=== PATIENT | male | born 1960 | race Caucasian/White ===

== ENCOUNTER 2016-02-22 15:03 | Inpatient (IN) | payer MEDICARE, OTHER ==
[~2016-02-22] VITALS: Ht 190.5 cm; Wt 98.1 kg
[2016-02-22] VITALS (11 sets, daily range): BP systolic 94–141; BP diastolic 55–68; PULSE 90–103; RESP 16–24; TEMP 98–98.4; O2SAT 95–98
[~2016-02-22 15:03] MED LIST: ACET325 PO; ASPI81TA82 PO; BUSP10 PO; DEPA500T3 PO; GEMF600 PO; GENT0.1C TOP; GEOD80CA PO; HYDRO50 PO; MAGN30S PO; NEXI40CA PO; NOVOLOGP2 SQ; RENATAB5 PO; SENS90TA PO; SILV1CRE59 TOP; TUMS500C PO
--- NOTE | 2016-02-22 15:20 | PD ---
HPI Chief Complaint: chest pain Time Seen by Provider: 15:20 Travel History International Travel<30 days: No Contact w/Intl Traveler<30days: No Traveled to known affect area: No History of Present Illness HPI 55-year-old male who is end-stage renal disease hemodialysis dependent was getting his dialysis done went worse ENT developed chest pain. Patient says that he gets 4 hours of dialysis usually and just half an hour prior to the completion he started developing chest pain. He pointed to the left side of his chest where he was getting sharp pain. He was given 2 sublingual nitroglycerin and 2 baby aspirin's. Upon arrival his pain was at 6 out of 10. No history of shortness of breath or syncopal episode. [facility] Past Medical History Narrative Medical List of his past medical history as reviewed from the nursing note. Anemia: Yes Arthritis: No Asthma: No Autoimmune Disease: No Blood Disorders: No Anxiety: Yes Depression: Yes Heart Rhythm Problems: No Cancer: Yes (skin cancer squamous facial) Cardiovascular Problems: Yes High Cholesterol: Yes Chemotherapy: No Chest Pain: Yes Congestive Heart Failure: No COPD: No Cerebrovascular Accident: No Diabetes: Yes (INSULIN DEPENDENT) Dialysis: Yes (TUES/TH/SAT) Diminished Hearing: Yes (DIMINISHED IN R EYE) Endocrine: Yes GERD: No Glaucoma: No Genitourinary: Yes (RENAL FAILURE. DIALYSIS 3X'S WEEKLY) Headaches: No Hepatitis: Yes (TYPE C) Hiatal Hernia: No Hypertension: Yes Immune Disorder: No Implanted Vascular Access Dvce: Yes Kidney Stones: No Musculoskeletal: No Neurologic: No Psychiatric: Yes (SCHIZOPHRENIA) Reproductive: No Respiratory: No Immunizations Current: Yes Migraines: No Myocardial Infarction: No Radiation Therapy: No Renal Failure: Yes (ON HEMODIALYSIS) Schizophrenia: Yes Seizures: No Sickle Cell Disease: No Sleep Apnea: No Thyroid Disease: Yes (HYPER PARATHYROIDISM) Ulcer: No Past Surgical History Abdominal Surgery: No AICD: No Appendectomy: No Arteriovenous Shunt: Yes (left upper arm) Cardiac Surgery: No Cholecystectomy: No Ear Surgery: No Endocrine Surgery: No Eye Surgery: No Genitourinary Surgery: No Gynecologic Surgery: No Insulin Pump: No Joint Replacement: No Oral Surgery: Yes (T & A) Pacemaker: No Thoracic Surgery: No Tonsillectomy: Yes Other Surgery: Yes (AV GRAFT) Social History Alcohol Use: No Tobacco Use: No Substance Use: No Allergies-Medications (Allergen,Severity, Reaction): Coded Allergies: Vee (Verified Adverse Reaction, Unknown, PT DENIES ALLERGY, 02/22/16) Pt denies allergy Comments List of his allergies reviewed from the nursing note. Reported Meds & Prescriptions Reported Meds & Active Scripts Active Reported Tums (Calcium Carbonate) 500 Mg Chew 500 Mg PO TIDPC Nexium (Esomeprazole Magnesium) Esomeprazole Magnesium 40 mg Cap 40 Mg PO DAILY Sensipar 90 mg (Cinacalcet Hcl 90 mg) 90 Mg Tab 180 Mg PO HS Silvadene (Silver Sulfadiazine) 50 Gm Cr 1 Applic TOP DIRECTED Novolog (Insulin Aspart) 100 Units/ML Inj 0 SQ DIRECTED PRN Gentamicin Sulfate (Gentamicin Sulfate (Topical)) 0.1 % Cre 1 Applic TOP TUTHSA APPLY TO LEFT UPPER ARM ON DIALYSIS DAYS Depakote ER 500 mg (Divalproex Sodium) 500 Mg Tab 1,500 Mg PO DAILY Buspar 10 mg Tab (Buspirone HCl) 10 Mg Tab 10 Mg PO BID Aspir-81 (Aspirin) 81 Mg Tab 81 Mg PO DAILY Tylenol (Acetaminophen) 325 Mg Tab 650 Mg PO Q6H PRN Aracely-Annelise (B-Complex W/ C & Folic Acid) Tab 1 Tab PO DAILY Milk Of Magnesia (Magnesium Hydroxide) 30 Ml Susp 30 Ml PO DAILY PRN Atarax 50 Mg Tab (Hydroxyzine HCl) 50 Mg Tab 50 Mg PO TID Lopid (Gemfibrozil) 600 Mg Tab 600 Mg PO BID Geodon (Ziprasidone) 80 Mg Cap 100 Mg PO BID TAKE WITH FOOD Narrative Medication List of his home medications reviewed from the nursing note. Review of Systems Except as stated in HPI: all other systems reviewed are Neg Physical Exam Narrative GENERAL: Awake, alert, morbidly obese, moderate distress SKIN: Warm and dry. HEAD: Atraumatic. Normocephalic. EYES: Pupils equal and round. No scleral icterus. No injection or drainage. ENT: No nasal bleeding or discharge. Mucous membranes pink and moist. NECK: Trachea midline. No JVD. CARDIOVASCULAR: Regular rate and rhythm. No murmur appreciated. RESPIRATORY: No accessory muscle use. Clear to auscultation. Breath sounds equal bilaterally. GASTROINTESTINAL: Abdomen soft, non-tender, nondistended. Hepatic and splenic margins not palpable. MUSCULOSKELETAL: No obvious deformities. No clubbing. No cyanosis. No edema. NEUROLOGICAL: Awake and alert. No obvious cranial nerve deficits. Motor grossly within normal limits. Normal speech. PSYCHIATRIC: Appropriate mood and affect; insight and judgment normal. Data Data Last Documented VS Vital Signs Date Time Temp Pulse Resp B/P Pulse Ox O2 Delivery O2 Flow Rate FiO2 02/22/16 15:28 98 Nasal Cannula 2 02/22/16 15:22 99 24 118/65 02/22/16 15:19 98.4 Orders Electrocardiogram (02/22/16 15:25) Basic Metabolic Panel (Bmp) (02/22/16 15:25) Ckmb (Isoenzyme) Profile (02/22/16 15:25) Complete Blood Count With Diff (02/22/16 15:25) Magnesium (Mg) (02/22/16 15:25) Prothrombin Time / Inr (Pt) (02/22/16 15:25) Act Partial Throm Time (Ptt) (02/22/16 15:25) Troponin I (02/22/16 15:25) Chest, Single Ap (02/22/16 15:25) Ecg Monitoring (02/22/16 15:25) Bilateral Bp Monitoring (02/22/16 15:25) Iv Access Insert/Monitor (02/22/16 15:25) Oximetry (02/22/16 15:25) Oxygen Administration (02/22/16 15:25) Sodium Chloride 0.9% Flush (Ns Flush) (02/22/16 15:30) Ed Poc Ultrasound (02/22/16 ) Diet Heart Healthy (02/22/16 Dinner) Heparin Infusion GABRIELA.Q1H (02/22/16 16:39) Heparin Inj (Heparin Inj) (02/22/16 16:45) Heparin-D5w Inj (Heparin-D5w Inj) (02/22/16 16:45) Act Partial Throm Time (Ptt) (02/22/16 16:39) Cbc No Diff, Includes Plts (02/22/16 16:39) Cbc No Diff, Includes Plts (02/25/16 06:00) Act Partial Throm Time (Ptt) (02/22/16 23:39) Occult Blood (Hemoccult) Stool (02/22/16 16:39) Labs Laboratory Tests Test 02/22/16 15:40 White Blood Count 6.2 TH/MM3 Red Blood Count 3.38 MIL/MM3 Hemoglobin 10.3 GM/DL Hematocrit 31.2 % Mean Corpuscular Volume 92.6 FL Mean Corpuscular Hemoglobin 30.4 PG Mean Corpuscular Hemoglobin 32.9 % Concent Red Cell Distribution Width 15.5 % Platelet Count 278 TH/MM3 Mean Platelet Volume 9.1 FL Neutrophils (%) (Auto) 60.6 % Lymphocytes (%) (Auto) 25.3 % Monocytes (%) (Auto) 10.3 % Eosinophils (%) (Auto) 2.7 % Basophils (%) (Auto) 1.1 % Neutrophils # (Auto) 3.7 TH/MM3 Lymphocytes # (Auto) 1.6 TH/MM3 Monocytes # (Auto) 0.6 TH/MM3 Eosinophils # (Auto) 0.2 TH/MM3 Basophils # (Auto) 0.1 TH/MM3 CBC Comment DIFF FINAL Differential Comment Prothrombin Time 13.4 SEC Prothromb Time International 1.2 RATIO Ratio Activated Partial 29.2 SEC Thromboplast Time Sodium Level 142 MEQ/L Potassium Level 3.5 MEQ/L Chloride Level 101 MEQ/L Carbon Dioxide Level 28.5 MEQ/L Anion Gap 13 MEQ/L Blood Urea Nitrogen 20 MG/DL Creatinine 5.02 MG/DL Estimat Glomerular Filtration 12 ML/MIN Rate Random Glucose 132 MG/DL Calcium Level 8.7 MG/DL Magnesium Level 2.1 MG/DL Total Creatine Kinase 43 U/L Troponin I 0.08 NG/ML MDM Medical Decision Making Medical Screen Exam Complete: Yes Emergency Medical Condition: Yes Medical Record Reviewed: Yes Interpretation(s) Twelve-lead EKG was reviewed by me. Atrial fibrillation, right bundle branch block, PVCs, left axis deviation. Heart rate of 98 bpm. Differential Diagnosis ACS, non-STEMI, nonspecific chest pain Narrative Course 4:32 PM awaiting for the troponin result,. Rest of the blood test results are within normal limit. Patient does have elevated troponin as expected. Awaiting for the chest x-ray to be done and resulted. 4:42 PM troponin is mildly elevated. Upon trending the troponin in the past this has been the highest. Awaiting for the hospitalist to call back for admission. I've ordered heparin bolus and drip. Procedures EKG Prior to Arrival: Yes Diagnosis Primary Impression: Non-STEMI (non-ST elevated myocardial infarction) Additional Impressions: End stage renal disease Dependent on hemodialysis Admitting Information Admitting Physician Requests: Admit Sulema Clarke MD Feb 22, 2016 15:20
[2016-02-22] MEDS ORDERED: SODIUM CHLORIDE 0.9% FLUSH 5 ML FLUSH IVF PRN (15:30)
[2016-02-22 16:05] LABS: APTT (PATIENT) 29.2 SEC (24.3-30.1); INTERNATIONAL NORMALIZED RATIO 1.2 RATIO; PROTHROMBIN TIME - PATIENT 13.4 SEC (9.8-11.6)
[2016-02-22 16:10] LABS: AUTOMATED NEUTROPHIL # 3.7 TH/MM3 (1.8-7.7); BASOPHIL # 0.1 TH/MM3 (0-0.2); BASOPHIL % 1.1 % (0.0-2.0); EOSINOPHIL # 0.2 TH/MM3 (0-0.4); EOSINOPHIL % 2.7 % (0.0-4.0); HEMATOCRIT 31.2 % (39.0-51.0); HEMO FLAGS DIFF FINAL; LYMPH % 25.3 % (9.0-44.0); LYMPHOCYTE # 1.6 TH/MM3 (1.0-4.8); MEAN CELL VOLUME 92.6 FL (80.0-100.0); MEAN CORPUSCULAR HEMOGLOBIN 30.4 PG (27.0-34.0); MEAN CORPUSCULAR HGB CONC 32.9 % (32.0-36.0); MONO % 10.3 % (0.0-8.0); NEUT % 60.6 % (16.0-70.0); PLATELET COUNT 278 TH/MM3 (150-450); RED BLOOD COUNT 3.38 MIL/MM3 (4.50-5.90); RED CELL DISTRIBUTION WIDTH 15.5 % (11.6-17.2); WHITE BLOOD COUNT 6.2 TH/MM3 (4.0-11.0)
[2016-02-22 16:19] LABS: BICARBONATE 28.5 MEQ/L (21.0-32.0); MAGNESIUM 2.1 MG/DL (1.5-2.5); POTASSIUM 3.5 MEQ/L (3.5-5.1)
[2016-02-22] MEDS ORDERED: HEPARIN SODIUM - IV 10,000 UNITS/10 ML VIAL IV ONE (16:45)
[2016-02-22] MEDS ORDERED: SILV1CRE20 TOPICAL (17:03)
[2016-02-22] MEDS ORDERED: DEPA500T3 PO (17:03)
[2016-02-22] MEDS ORDERED: ZIPR20 PO (17:03)
[2016-02-22] MEDS ORDERED: NOVOLOGP2 SQ (17:03)
[2016-02-22] MEDS ORDERED: TYLE325T PO (17:03)
[2016-02-22] MEDS ORDERED: RENATAB5 PO (17:03)
[2016-02-22] MEDS ORDERED: GEOD80CA PO (17:03)
[2016-02-22] MEDS ORDERED: TUMS500C PO (17:03)
[2016-02-22] MEDS ORDERED: ASPI1TAB69 PO (17:03)
[2016-02-22] MEDS: HEPARIN-D5W INJ 250 ML IV SCH (17:13)
[2016-02-22] MEDS ORDERED: PROCHLORPERAZINE 25 MG SUPP PR PRN (17:15)
[2016-02-22] MEDS ORDERED: ONDANSETRON HCL 4 MG/2 ML VIAL IVP PRN (17:15)
[2016-02-22] MEDS ORDERED: SODIUM CHLORIDE 0.9% FLUSH 5 ML FLUSH FLUSH PRN (17:15)
[2016-02-22] MEDS ORDERED: MAGNESIUM HYDROXIDE SUSP 30 ML CUP PO PRN (17:15)
[2016-02-22] MEDS ORDERED: SENNOSIDES 8.6 MG TAB PO PRN (17:15)
[2016-02-22] MEDS ORDERED: BISACODYL 10 MG SUPP PR PRN (17:15)
[2016-02-22] MEDS ORDERED: TEMAZEPAM 15 MG CAP PO PRN (17:15)
[2016-02-22] MEDS ORDERED: MORPHINE SULFATE 4 MG/ML INJ IV PUSH PRN (17:15)
--- NOTE | 2016-02-22 17:20 | RADRPT ---
EXAM DATE/TIME: 02/22/2016 15:27 [place] COMPARISON: CHEST SINGLE AP, January 07, 2014, 5:50. INDICATIONS : Chest pain, short of breath MEDICAL HISTORY : Renal failure, chronic. SURGICAL HISTORY : None. ENCOUNTER: Initial ACUITY: 1 day PAIN SCORE: 7/10 LOCATION: Bilateral chest FINDINGS: Portable upright AP view of the chest demonstrates cardiac silhouette size at the upper limits for no rmal. Examination is degraded by motion artifact. No definite effusion, consolidation, or pneumothora x is appreciated. Bones and soft tissues demonstrate no acute finding. CONCLUSION: Motion degraded examination without a definite abnormality given the technique. Cardiac silhouette si ze remains at the upper limits for normal. Gil Meade MD on February 22, 2016 at 17:18 Board Certified Radiologist. This report was verified electronically.
[2016-02-22] MEDS ORDERED: GLUCAGON 1 MG/ML VIAL OTHER PRN (18:00)
[2016-02-22] MEDS ORDERED: DEXTROSE 50% IN WATER 50 ML VIAL(D50) IV PUSH PRN (18:00)
[2016-02-22] MEDS ORDERED: CALCIUM CARBONATE 500 MG CHEWABLE TAB PO PRN (18:00)
[2016-02-22] MEDS ORDERED: ACETAMINOPHEN 325 MG TAB PO PRN (18:00)
--- NOTE | 2016-02-22 18:00 | HHI.HP ---
[facility] Primary Care Physician Felix Antony MD Admission Diagnosis chest pain, non-STEMI, ESRD, HD dependent Diagnoses: Chief Complaint: Chest pain Travel History International Travel<30 Days: No Contact w/Intl Traveler <30 Da: No Traveled to Known Affected Are: No History of Present Illness 55-year-old male with a past medical history of ESRD, seizure disorder, DM, Reza's esophagus, schizophrenia who presented to the ED from dialysis with chest pain. The patient states that during dialysis today he began having cramping epigastric pain which radiated into his chest. He describes the chest pain as sharp like a knife. He denies any radiation of the chest pain. He states the pain was relieved with nitroglycerin. Upon further questioning, he does state that the epigastric/mid chest pain is similar to when he had an EGD done and was diagnosed with Reza's esophagus. He denies any diaphoresis, nausea, vomiting. Does have a chronic dry cough. He denies any fevers or chills. He does have chronic loose stools, multiple episodes per day. He denies any recent antibiotic use. He does still make some urine. His acid changer is Dr. Antony. He denies any prior cardiac history. Review of Systems Other 10 point review of systems performed and was negative except as stated in the history of present illness Past Family Social History Past Medical History ESRD on HD Seizure disorder Reza's esophagus Diabetes mellitus Schizophrenia Past Surgical History Left upper extremity AV graft EGD Skin cancer removal from the forehead Reported Medications Geodon (Ziprasidone) 20 Mg Cap 100 Mg PO BID Take 1 capsule (20mg) with 80mg capsule for a total dose of 100mg Geodon (Ziprasidone) 80 Mg Cap 100 Mg PO BID Take 1 capsule (80mg) with 20mg capsule for a total dose of 100mg Silvadene Topical (Silver Sulfadiazine) 1 % Cream 1 Applic TOPICAL DIRECTED Aracely-Annelise (B-Complex W/ C & Folic Acid) 1 Tab 1 Tab PO DAILY Depakote ER (Divalproex Sodium) 500 Mg Prema 1,500 Mg PO DAILY Novolog Inj (Insulin Aspart) 1,000 Unit/10 Ml Vial 0 SQ DIRECTED Sliding Scale as directed. Tums (Calcium Carbonate (Antacid)) 500 Mg Chew 500 Mg PO TIDPC PRN Aspirin 81 Mg Tabdr 81 Mg PO DAILY Tylenol (Acetaminophen) 325 Mg Tab 650 Mg PO Q6H PRN Patient also reports she is taking Januvia Allergies: Coded Allergies: Vee (Verified Adverse Reaction, Unknown, PT DENIES ALLERGY, 02/22/16) Pt denies allergy Active Ordered Medications Current Medications Medications (Trade) Dose Ordered Sig/Diane Route Start Time Stop Time Status Last Admin (Heparin-D5W Inj) 250 ml @ 0 mls/hr TITRATE IV 02/22/16 16:45 02/22/16 17:13 (Nitroglycerin 2% Oint) 1 inch Q8HR TOPICAL 02/22/16 17:15 (Morphine Inj) 2 mg Q4HR PRN IV PUSH 02/22/16 17:15 (NS Flush) 2 ml UNSCH PRN FLUSH 02/22/16 17:15 (NS Flush) 2 ml BID FLUSH 02/22/16 21:00 (Zofran Inj) 4 mg Q6H PRN IVP 02/22/16 17:15 (Compazine Supp) 25 mg Q12H PRN [place] 02/22/16 17:15 (Dulcolax Supp) 10 mg DAILY PRN [place] 02/22/16 17:15 (Milk Of Magnesia Liq) 30 ml Q12H PRN PO 02/22/16 17:15 (Senokot) 17.2 mg Q12H PRN PO 02/22/16 17:15 (Restoril) 15 mg HS PRN PO 02/22/16 17:15 (Lopressor) 12.5 mg Q12HR PO 02/22/16 21:00 (Pepcid) 20 mg BID PO 02/22/16 21:00 UNV (Tylenol) 650 mg Q6H PRN PO 02/22/16 18:00 UNV (Ecotrin Ec) 81 mg DAILY PO 02/23/16 09:00 UNV (Tums Chew) 500 mg TIDPC PRN PO 02/22/16 18:00 UNV (Depakote Er) 1,500 mg DAILY PO 02/23/16 09:00 UNV (Silvadene 1% Cream (50 Gm)) 1 applic DAILY TOPICAL 02/23/16 09:00 UNV (Geodon) 100 mg BID PO 02/22/16 21:00 UNV Non-Formulary Medication 1 tab DAILY PO 02/23/16 09:00 UNV Family History Mother had breast cancer Denies any family history of heart disease Social History SNF resident Denies any tobacco use, but does state he has secondhand smoke exposure because he sits on the smokers porch at his facility Denies any alcohol or drug use Physical Exam Vital Signs Vital Signs Date Time Temp Pulse Resp B/P Pulse Ox O2 Delivery O2 Flow Rate FiO2 02/22/16 17:06 97 16 111/64 97 Room Air 02/22/16 15:28 98 Nasal Cannula 2 02/22/16 15:22 99 24 118/65 95 Room Air 02/22/16 15:19 98.4 99 24 118/65 95 Physical Exam GENERAL: Well-developed well-nourished. In no acute distress. SKIN: Warm and dry. LUE AVF. HEENT: Normocephalic. Pupils equal and round. Mucous membranes pink and moist. CARDIOVASCULAR: Regular rate and rhythm. No murmur appreciated. RESPIRATORY: No accessory muscle use. Clear to auscultation. Breath sounds equal bilaterally. GASTROINTESTINAL: Abdomen soft, non-tender, nondistended. Bowel sounds x4. MUSCULOSKELETAL: No obvious deformities. No clubbing or cyanosis. No edema. NEUROLOGICAL: Awake and alert. No focal neurological deficits. Moves upper and lower extremities spontaneously. Normal speech. PSYCHIATRIC: Appropriate mood and affect; insight and judgment normal. Laboratory Laboratory Tests Test 02/22/16 15:40 White Blood Count 6.2 Red Blood Count 3.38 Hemoglobin 10.3 Hematocrit 31.2 Mean Corpuscular Volume 92.6 Mean Corpuscular Hemoglobin 30.4 Mean Corpuscular Hemoglobin 32.9 Concent Red Cell Distribution Width 15.5 Platelet Count 278 Mean Platelet Volume 9.1 Neutrophils (%) (Auto) 60.6 Lymphocytes (%) (Auto) 25.3 Monocytes (%) (Auto) 10.3 Eosinophils (%) (Auto) 2.7 Basophils (%) (Auto) 1.1 Neutrophils # (Auto) 3.7 Lymphocytes # (Auto) 1.6 Monocytes # (Auto) 0.6 Eosinophils # (Auto) 0.2 Basophils # (Auto) 0.1 CBC Comment DIFF FINAL Differential Comment Prothrombin Time 13.4 Prothromb Time International 1.2 Ratio Activated Partial 29.2 Thromboplast Time Sodium Level 142 Potassium Level 3.5 Chloride Level 101 Carbon Dioxide Level 28.5 Anion Gap 13 Blood Urea Nitrogen 20 Creatinine 5.02 Estimat Glomerular Filtration 12 Rate Random Glucose 132 Calcium Level 8.7 Magnesium Level 2.1 Total Creatine Kinase 43 Troponin I 0.08 Result Diagram: 02/22/16 1540 02/22/16 1540 Imaging Last Impressions Chest X-Ray 02/22/16 1525 Signed Impressions: Service Date/Time: January 15:27 - CONCLUSION: Motion degraded examination without a definite abnormality given the technique. Cardiac silhouette size remains at the upper limits for normal. Gil Meade MD Assessment and Plan Problem List: (1) Chest pain ICD Code: R07.9 Status: Acute (2) Schizophrenia ICD Code: F20.9 Status: Chronic (3) DM (diabetes mellitus) ICD Code: E11.9 Status: Chronic (4) End stage renal failure on dialysis ICD Code: N18.6 Status: Chronic (5) Non-STEMI (non-ST elevated myocardial infarction) ICD Code: I21.4 Status: Acute Assessment and Plan 55-year-old male with a past medical history of ESRD, seizure disorder, DM, Reza's esophagus, schizophrenia who presented to the ED from dialysis with chest pain Chest pain/NSTEMI: Chest pain sounds atypical. However initial troponin 0.08 which can be related to ESRD, but was previously 0.02 on 01/13/14 and the patient was on HD at that time as well. EKG reviewed, RBBB, nonspecific ST/T- wave changes, no significant change from previous and 2014. Trend troponins. Started on heparin GTT in the ED. Consult cardiology. Start metoprolol and Nitropaste as BP allows. Continue aspirin. ESRD on HD: Dialyzes TTS. Consult patient's acid changer. GERD/Reza's esophagus: Chronic, but could be exacerbating chest pain as above. Continue Tums as needed. Start famotidine with renal impairment. Loose stools: Chronic, however will rule out C. difficile. Diabetes mellitus: Coverage with SSI with [employer]. Chronic medical conditions include schizophrenia and seizure disorder: Continue home Depakote and Geodon. DVT prophylaxis: On heparin drip. PT eval Written by Dwight Hairston, acting as scribe for Dr. Correia on 02/22/16 at 17:59. The documentation accurately reflects the work performed [id number] by me Dr. Correia on 02/22/16 at 17:59. Discussed Condition With Patient, nurse, ED physician Problem Qualifiers (1) Chest pain: Qualified Code: R07.9 - Chest pain, unspecified type (2) Schizophrenia: Qualified Code: F20.9 - Schizophrenia, unspecified type Dwight Hairston Feb 22, 2016 18:00 Lizet Correia MD Feb 22, 2016 19:29
[2016-02-22] MEDS: NITROGLYCERIN 2% OINT 1 GM PACKET TOPICAL SCH (18:02)
[2016-02-22] MEDS: INSULIN ASPART SUPPLEMENTAL SCALE SQ SCH (21:00)
[2016-02-22] MEDS ORDERED: ZIPRASIDONE HCL 20 MG CAP PO SCH (21:00)
[2016-02-22] MEDS: FAMOTIDINE 20 MG TAB PO SCH (21:40)
[2016-02-22] MEDS: ZIPRASIDONE HCL 60 MG CAP PO SCH (21:41)
[2016-02-22] MEDS: ZIPRASIDONE HCL 40 MG CAP PO SCH (21:41)
[2016-02-22 23:16] LABS: APTT (PATIENT) 30.3 SEC (24.3-30.1)
[2016-02-23] VITALS (9 sets, daily range): BP systolic 101–163; BP diastolic 56–103; PULSE 74–94; RESP 16–20; TEMP 97.4–98.6; O2SAT 93–99
[2016-02-23] MEDS: METOPROLOL TARTRATE 25 MG TAB PO SCH ×3 (00:57→21:41)
[2016-02-23] MEDS: NITROGLYCERIN 2% OINT 1 GM PACKET TOPICAL SCH ×4 (00:57→21:41)
[2016-02-23] MEDS: SODIUM CHLORIDE 0.9% FLUSH 5 ML FLUSH FLUSH SCH ×3 (00:57→21:42)
[2016-02-23 04:35] LABS: AUTOMATED NEUTROPHIL # 3.4 TH/MM3 (1.8-7.7); BASOPHIL % 0.5 % (0.0-2.0); EOSINOPHIL # 0.3 TH/MM3 (0-0.4); EOSINOPHIL % 3.9 % (0.0-4.0); HEMATOCRIT 29.6 % (39.0-51.0); HEMO FLAGS DIFF FINAL; LYMPH % 29.4 % (9.0-44.0); LYMPHOCYTE # 1.9 TH/MM3 (1.0-4.8); MEAN CELL VOLUME 92.2 FL (80.0-100.0); MEAN CORPUSCULAR HEMOGLOBIN 30.5 PG (27.0-34.0); MEAN CORPUSCULAR HGB CONC 33.1 % (32.0-36.0); MONO % 14.2 % (0.0-8.0); PLATELET COUNT 259 TH/MM3 (150-450); RED BLOOD COUNT 3.21 MIL/MM3 (4.50-5.90); RED CELL DISTRIBUTION WIDTH 15.4 % (11.6-17.2); WHITE BLOOD COUNT 6.6 TH/MM3 (4.0-11.0)
[2016-02-23 05:00] LABS: BICARBONATE 25.2 MEQ/L (21.0-32.0); POTASSIUM 3.7 MEQ/L (3.5-5.1)
[2016-02-23] MEDS: INSULIN ASPART SUPPLEMENTAL SCALE SQ SCH ×4 (05:56→20:17)
[2016-02-23] MEDS ORDERED: NON-FORMULARY DRUG (B-Complex W/ C & Folic Acid (Rena-Vite) 1 TAB) PO SCH (09:00)
[2016-02-23] MEDS: ATORVASTATIN 10 MG TAB PO SCH (09:00)
[2016-02-23] MEDS ORDERED: SILVER SULFADIAZINE 1% CR 50 GM JAR TOPICAL SCH (09:00)
--- NOTE | 2016-02-23 09:01 | MB ---
cc: FRANKLIN SALAS MD DATE OF CONSULTATION 02/23/2016 REASON FOR CONSULTATION Chest pain and elevated troponin. HISTORY OF PRESENT ILLNESS Mr. Herron is a 55-year-old man who has a history of end-stage renal disease on hemodialysis. He was at dialysis yesterday when he had onset of discomfort. He described epigastric pain that then radiated into his chest. He reports his blood pressure was high at that time with a systolic over 180. He apparently had some relief with the nitroglycerin and came to the emergency room. He denies any prior cardiac history. The patient is already questioning when he will be discharged from the hospital as he has a lunch engagement with his brother this afternoon. PAST MEDICAL HISTORY 1. End-stage renal disease on hemodialysis 2. Seizure disorder 3. Schizophrenia 4. Reza's esophagus 5. Diabetes 6. History of GI bleed. MEDICATIONS Outpatient medications include: 1. Geodon 2. Silvadene 3. Aracely-Annelise 4. Depakote 5. Insulin 6. Aspirin. ALLERGIES [facility] FAMILY HISTORY Negative for CAD. SOCIAL HISTORY The patient is an SNF resident. REVIEW OF SYSTEMS Except what is mentioned in the HPI, all 12-systems are negative. PHYSICAL EXAM VITAL SIGNS: 98.6, 92, 16, 108/56. GENERAL: In general, he is a well-appearing male who is in no apparent distress. NECK: His neck is free from JVD. LUNGS: The lungs are bilaterally clear to auscultation. CARDIOVASCULAR: The cardiovascular examination he has a normal S1 and S2. I did not appreciate any murmurs, rubs or gallops. ABDOMEN: The abdomen is soft. EXTREMITIES: The extremities are free from edema. LABORATORY FINDINGS Significant for a hemoglobin pf 10.3/9.8. His creatinine is 6.76 with serial troponins of 0.08/0.07/0.07. EKG shows normal sinus rhythm with a right bundle branch block and left anterior fascicular block. This is essentially unchanged from his previous EKG. IMPRESSIONS Non-ST elevation PR - It is not clear if this is a primary or a secondary event related to his labile blood pressure. The enzymes are in the indeterminate range particularly in light of his renal insufficiency. This is less suggestive on an ACS and more consistent with a secondary event. In any case, he certainly has multiple CV risk factors. I did discuss further evaluation with catheterization and he certainly would be a high-risk candidate given his anemia and prior history of GI bleed. At this point, he is not certain if he would like to pursue that route. I think stress testing would be a reasonable alternative in this situation. He unfortunately has already had breakfast today. We will see if we can get a stress test later this afternoon. Hypertension - This is well-controlled and low at this point. 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 Particularly in his case with his history of prior GI bleed, it is not clear where the source is; GI versus chronic anemia versus other. This will have to be explored by the primary team. Franklin Salas M.D. SMILEY/DJL /8:30 AM /8:50 AM
[2016-02-23] MEDS: DIVALPROEX SODIUM E.R. 500 MG TAB PO SCH (09:17)
[2016-02-23] MEDS: FAMOTIDINE 20 MG TAB PO SCH ×2 (09:18→21:41)
[2016-02-23] MEDS: VITAMIN B CMPLX/VITC/FOLIC AC CAP PO SCH (09:18)
[2016-02-23] MEDS: ZIPRASIDONE HCL 40 MG CAP PO SCH ×2 (09:18→21:41)
[2016-02-23] MEDS: ASPIRIN EC 81 MG TABEC PO SCH (09:18)
[2016-02-23] MEDS: ZIPRASIDONE HCL 60 MG CAP PO SCH ×2 (09:18→21:41)
[2016-02-23 09:32] LABS: HDL CHOLESTEROL 47.2 MG/DL (40.0-60.0); INDIRECT BILIRUBIN 0.1 MG/DL (0.0-0.8); TOTAL BILIRUBIN ADULT 0.2 MG/DL (0.2-1.0)
--- NOTE | 2016-02-23 11:15 | PD.CONS ---
HPI Service Nephrology Consult Requested By Dr. Clarke Reason for Consult ESRD on HD TTS Primary Care Physician Felix Antony MD History of Present Illness The patient is a 55 yo male who presented to the ED 02/21 at the urge of his dialysis facility as he was experiencing chest pain during session yesterday. Says he was about 2 hours into his 3 hour session when he began to have central chest pressure without radiation. He was subsequently given NTG x1 dose and chest pain resolved. The patient denies any previous cardiac history, but he appears to be a questionable historian. Denies any recently missed dialysis sessions. Admits that a typical fluid gain for him in between sessions is about 5kg, which he does believe was the goal at his HD yesterday. 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 Since yesterday , he denies any repeat episodes of chest pain, denies SOB. Does have some loose stools, but no nausea nor vomiting. Notable anemia. States he believe that he receives both epogen and intravenous iron at dialysis unit. Uses Renvela as phosphate binder. Cardiology note reviewed and seems to be leaning more towards stress test versus catheterization given anemia. The patient is adamant that he is leaving this afternoon, even if this means signing out AMA. 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, excision and treatment done at [facility] Past Surgical History AVF formation LUE in 2007 Reported Medications Reported Meds & Active Scripts Active Reported Geodon (Ziprasidone) 20 Mg Cap 100 Mg PO BID Take 1 capsule (20mg) with 80mg capsule for a total dose of 100mg Geodon (Ziprasidone) 80 Mg Cap 100 Mg PO BID Take 1 capsule (80mg) with 20mg capsule for a total dose of 100mg Silvadene Topical (Silver Sulfadiazine) 1 % Cream 1 Applic TOPICAL DIRECTED Aracely-Annelise (B-Complex W/ C & Folic Acid) 1 Tab 1 Tab PO DAILY Depakote ER (Divalproex Sodium) 500 Mg Prema 1,500 Mg PO DAILY Novolog Inj (Insulin Aspart) 1,000 Unit/10 Ml Vial 0 SQ DIRECTED Sliding Scale as directed. Tums (Calcium Carbonate (Antacid)) 500 Mg Chew 500 Mg PO TIDPC PRN Aspirin 81 Mg Tabdr 81 Mg PO DAILY Tylenol (Acetaminophen) 325 Mg Tab 650 Mg PO Q6H PRN Active Ordered Medications Current Medications Medications (Trade) Dose Ordered Sig/Diane Route Start Time Stop Time Status Last Admin (Heparin-D5W Inj) 250 ml @ 0 mls/hr TITRATE IV 02/22/16 16:45 02/22/16 17:13 (Nitroglycerin 2% Oint) 1 inch Q8HR TOPICAL 02/22/16 17:15 02/23/16 05:56 (Morphine Inj) 2 mg Q4HR PRN IV PUSH 02/22/16 17:15 (NS Flush) 2 ml UNSCH PRN FLUSH 02/22/16 17:15 (NS Flush) 2 ml BID FLUSH 02/22/16 21:00 02/23/16 09:21 (Zofran Inj) 4 mg Q6H PRN IVP 02/22/16 17:15 (Compazine Supp) 25 mg Q12H PRN AR 02/22/16 17:15 (Dulcolax Supp) 10 mg DAILY PRN AR 02/22/16 17:15 (Milk Of Magnesia Liq) 30 ml Q12H PRN PO 02/22/16 17:15 (Senokot) 17.2 mg Q12H PRN PO 02/22/16 17:15 (Restoril) 15 mg HS PRN PO 02/22/16 17:15 (Lopressor) 12.5 mg Q12HR PO 02/22/16 21:00 02/23/16 09:18 (Pepcid) 10 mg BID PO 02/22/16 21:00 02/23/16 09:18 (Tylenol) 650 mg Q6H PRN PO 02/22/16 18:00 (Ecotrin Ec) 81 mg DAILY PO 02/23/16 09:00 02/23/16 09:18 (Tums Chew) 500 mg TIDPC PRN PO 02/22/16 18:00 (Depakote Er) 1,500 mg DAILY PO 02/23/16 09:00 02/23/16 09:17 (Silvadene 1% Cream (50 Gm)) 1 applic DAILY TOPICAL 02/23/16 09:00 (Geodon) 60 mg BID PO 02/22/16 21:00 02/23/16 09:18 (D50w (Vial) Inj) 25 ml UNSCH PRN IV PUSH 02/22/16 18:00 (Glucagon Inj) 1 mg UNSCH PRN OTHER 02/22/16 18:00 (Geodon) 40 mg BID PO 02/22/16 21:00 02/23/16 09:18 (Nephrocaps) 1 cap DAILY PO 02/23/16 09:00 02/23/16 09:18 (Lipitor) 10 mg DAILY PO 02/23/16 09:00 Family History Noncontributory to current admission Social History Lives at [facility] Denies EtOH, tobacco, or illicit drug use (Inga Gaffney) Physical Exam Vital Signs Vital Signs Date Time Temp Pulse Resp B/P Pulse Ox O2 Delivery O2 Flow Rate FiO2 02/23/16 08:00 97.8 81 20 122/60 99 02/23/16 07:48 97 21 02/23/16 04:16 98.6 92 16 108/56 98 02/23/16 01:49 94 02/23/16 00:23 98.4 94 18 101/57 93 02/22/16 22:05 97 02/22/16 22:00 98.0 90 16 120/62 96 02/22/16 21:24 92 16 94/55 98 Room Air 02/22/16 21:08 96 02/22/16 19:22 102 16 95 Nasal Cannula 2 02/22/16 19:19 103 16 108/59 96 Room Air 02/22/16 18:07 102 16 141/68 96 Room Air 02/22/16 18:05 97 21 02/22/16 17:06 97 16 111/64 97 Room Air 02/22/16 15:28 98 Nasal Cannula 2 02/22/16 15:22 99 24 118/65 95 Room Air 02/22/16 15:19 98.4 99 24 118/65 95 Physical Exam GENERAL: Laying in bed watching TV. NAD SKIN: Warm and dry. HEAD: Atraumatic. Normocephalic. EYES: Pupils equal and round. No scleral icterus. No injection or drainage. ENT: No nasal bleeding or discharge. Mucous membranes pink and moist. NECK: Trachea midline. No JVD. CARDIOVASCULAR: Regular rate and rhythm. RESPIRATORY: No accessory muscle use. Clear to auscultation. Breath sounds equal bilaterally. GASTROINTESTINAL: Abdomen soft, non-tender, nondistended. Hepatic and splenic margins not palpable. MUSCULOSKELETAL: Extremities without clubbing, cyanosis, or edema. No obvious deformities. NEUROLOGICAL: Awake and alert. No obvious cranial nerve deficits. Normal speech. PSYCHIATRIC: Appropriate mood and affect; Impaired insight and judgment as he continuously says he leaving the hospital tonight because he has plans with his brother. Laboratory Laboratory Tests Test 02/22/16 02/22/16 02/23/16 15:40 22:29 04:20 White Blood Count 6.2 6.6 Red Blood Count 3.38 3.21 Hemoglobin 10.3 9.8 Hematocrit 31.2 29.6 Mean Corpuscular Volume 92.6 92.2 Mean Corpuscular Hemoglobin 30.4 30.5 Mean Corpuscular Hemoglobin 32.9 33.1 Concent Red Cell Distribution Width 15.5 15.4 Platelet Count 278 259 Mean Platelet Volume 9.1 8.6 Neutrophils (%) (Auto) 60.6 52.0 Lymphocytes (%) (Auto) 25.3 29.4 Monocytes (%) (Auto) 10.3 14.2 Eosinophils (%) (Auto) 2.7 3.9 Basophils (%) (Auto) 1.1 0.5 Neutrophils # (Auto) 3.7 3.4 Lymphocytes # (Auto) 1.6 1.9 Monocytes # (Auto) 0.6 0.9 Eosinophils # (Auto) 0.2 0.3 Basophils # (Auto) 0.1 0.0 CBC Comment DIFF FINAL DIFF FINAL Differential Comment Prothrombin Time 13.4 Prothromb Time International 1.2 Ratio Activated Partial 29.2 30.3 Thromboplast Time Sodium Level 142 141 Potassium Level 3.5 3.7 Chloride Level 101 102 Carbon Dioxide Level 28.5 25.2 Anion Gap 13 14 Blood Urea Nitrogen 20 31 Creatinine 5.02 6.76 Estimat Glomerular Filtration 12 8 Rate Random Glucose 132 92 Calcium Level 8.7 8.9 Magnesium Level 2.1 Total Creatine Kinase 43 Troponin I 0.08 0.07 0.07 Total Bilirubin 0.2 Direct Bilirubin 0.1 Indirect Bilirubin 0.1 Aspartate Amino Transf 23 (AST/SGOT) Alanine Aminotransferase 20 (ALT/SGPT) Alkaline Phosphatase 120 Total Protein 7.0 Albumin 2.4 Triglycerides Level 220 Cholesterol Level 135 LDL Cholesterol 44 HDL Cholesterol 47.2 Cholesterol/HDL Ratio 2.86 (Inga Gaffney) Result Diagram: 02/23/16 04202/23/16 042 Imaging Last Impressions Chest X-Ray 02/22/16 1525 Signed Impressions: Service Date/Time: , February 22, 2016 15:27 - CONCLUSION: Motion degraded examination without a definite abnormality given the technique. Cardiac silhouette size remains at the upper limits for normal. Gil Meade MD (Inga Gaffney) Assessment and Plan Problem List: (1) End stage renal failure on dialysis Plan: Continue on TTS HD schedule. Will plan for HD tomorrow in the event that the patient changes his mind and decides to stay (continuously says he is leaving tonight). Continue on Renvela as before--check PO4 level. Check iPTH and Vit D levels. Medications should be adjusted for the patient's ESRD. Avoid gadolinium. (2) Chest pain Plan: Mgmt as per cardiology. Appears stress test has been ordered. Hx of Reza's. May benefit from GI consult given this hx. CXR shows no effusions or signs of volume overload. (3) Anemia Plan: Repeat CBC with Fe stores Likely has anemia of renal disease Epogen ordered with HD for tomorrow. (4) Hypertension Plan: Continue on home medication regimen (5) DM (diabetes mellitus) Plan: Mgmt as per primary (Inga Gaffney) Assessment and Plan The exam, history, and the medical decision-making described in the above note were completed with the assistance of the PACole. I reviewed and agree with the findings presented. I attest that I had a [id number] encounter with the patient on the same day, and personally performed and documented my assessment and findings in the medical record. (Maria Fernanda Woo MD) Problem Qualifiers (1) Chest pain: Qualified Code: R07.9 - Chest pain, unspecified type Inga Gaffney Feb 23, 2016 11:15 Maria Fernadna Woo MD Feb 23, 2016 16:05
[2016-02-23] MEDS ORDERED: SODIUM CHLOR 0.9% 1000 ML INJ 1,000 ML IV PRN ×3 (11:18)
[2016-02-23] MEDS ORDERED: diphenhydrAMINE HCL 25 MG CAP PO PRN (11:30)
[2016-02-23] MEDS ORDERED: NITROGLYCERIN 0.4 MG SL 25 TABS/BTL SL PRN (11:30)
[2016-02-23] MEDS ORDERED: GENTAMICIN SULFATE (DIALYSIS USE ONLY) 20 MG/2 ML VIAL IV PRN (11:30)
[2016-02-23] MEDS ORDERED: HEPARIN SODIUM - IV 10,000 UNITS/10 ML VIAL IVF PRN (11:30)
[2016-02-23] MEDS ORDERED: ACETAMINOPHEN 325 MG TAB PO PRN (11:30)
[2016-02-23] MEDS ORDERED: HEPARIN SODIUM - IV 10,000 UNITS/10 ML VIAL PRN (11:30)
[2016-02-23] MEDS ORDERED: SODIUM CHLORIDE 0.9% FLUSH 5 ML FLUSH IVF PRN (11:30)
[2016-02-23] MEDS ORDERED: ONDANSETRON HCL 4 MG/2 ML VIAL IV PRN (11:30)
[2016-02-23] MEDS ORDERED: GELATIN 12 MM/7 MM FOAM TOP PRN (11:30)
[2016-02-23] MEDS ORDERED: cloNIDine HCL 0.1 MG TAB PO PRN (11:30)
[2016-02-23] MEDS ORDERED: MANNITOL 12.5 GM/50 ML VIAL IV PRN (11:30)
[2016-02-23] MEDS ORDERED: ALBUMIN HUMAN 25% 25 GM/100 ML BAGP IV PRN (11:30)
[2016-02-23] MEDS: SEVELAMER CARBONATE 800 MG TAB PO SCH ×2 (12:00→16:05)
--- NOTE | 2016-02-23 13:18 | HHI.PR ---
Subjective Remarks Follow-up for chest pain. The patient reports continued midsternal chest pain today. He states the pain has improved from about 8 out of 10 yesterday to 5 out of 10 currently. He described the pain as dull, constant. He states the pain is worse when he coughs or when he takes a deep breath. He denies any nausea, vomiting, dysuria. He denies any loose stools overnight. He initially refused stress testing today because he said he wanted to Have dinner with his brother and didn't want to be late. He's never had any chest pain symptoms like this before. We explained the importance of stress testing in light of symptoms and lab findings, and the patient is agreeable. However the patient did have lunch today, agreeable for stress test in the a.m. Objective Vitals Vital Signs Date Time Temp Pulse Resp B/P Pulse Ox O2 Delivery O2 Flow Rate FiO2 02/23/16 08:00 97.8 81 20 122/60 99 02/23/16 07:48 97 21 02/23/16 04:16 98.6 92 16 108/56 98 02/23/16 01:49 94 02/23/16 00:23 98.4 94 18 101/57 93 02/22/16 22:05 97 02/22/16 22:00 98.0 90 16 120/62 96 02/22/16 21:24 92 16 94/55 98 Room Air 02/22/16 21:08 96 02/22/16 19:22 102 16 95 Nasal Cannula 2 02/22/16 19:19 103 16 108/59 96 Room Air 02/22/16 18:07 102 16 141/68 96 Room Air 02/22/16 18:05 97 21 02/22/16 17:06 97 16 111/64 97 Room Air 02/22/16 15:28 98 Nasal Cannula 2 02/22/16 15:22 99 24 118/65 95 Room Air 02/22/16 15:19 98.4 99 24 118/65 95 I/O 02/22/16 02/22/16 02/22/16 02/23/16 02/23/16 02/23/16 07:00 15:00 23:00 07:00 15:00 23:00 Intake Total 500 ml 520 ml Output Total 0 ml 500 ml Balance 500 ml 20 ml Intake Oral 500 ml 520 ml Output Urine Total 0 ml 500 ml # Bowel Movements 0 0 Result Diagram: 02/23/16 0420 02/23/16 0420 Imaging Last Impressions Chest X-Ray 02/22/16 1525 Signed Impressions: Service Date/Time: January 15:27 - CONCLUSION: Motion degraded examination without a definite abnormality given the technique. Cardiac silhouette size remains at the upper limits for normal. Gil Meade MD Objective Remarks GENERAL: Well-developed well-nourished. In no acute distress. SKIN: Warm and dry. LUE AVF. Superficial abrasions from scratching on the bilateral upper extremities. HEENT: Normocephalic. Pupils equal and round. Mucous membranes pink and moist. CARDIOVASCULAR: Regular rate and rhythm. No murmur appreciated. Chest pain is reproducible upon palpation of the left chest wall. RESPIRATORY: No accessory muscle use. Clear to auscultation. Breath sounds equal bilaterally. GASTROINTESTINAL: Abdomen soft, non-tender, nondistended. Bowel sounds x4. MUSCULOSKELETAL: No obvious deformities. No clubbing or cyanosis. No edema. NEUROLOGICAL: Awake and alert. No focal neurological deficits. Moves upper and lower extremities spontaneously. Normal speech. PSYCHIATRIC: Appropriate mood and affect; insight and judgment fair. A/P Problem List: (1) Chest pain ICD Code: R07.9 Status: Acute (2) Schizophrenia ICD Code: F20.9 Status: Chronic (3) DM (diabetes mellitus) ICD Code: E11.9 Status: Chronic (4) End stage renal failure on dialysis ICD Code: N18.6 Status: Chronic (5) Non-STEMI (non-ST elevated myocardial infarction) ICD Code: I21.4 Status: Acute Assessment and Plan 55-year-old male with a past medical history of ESRD, seizure disorder, DM, Reza's esophagus, schizophrenia who presented to the ED from dialysis with chest pain Chest pain/NSTEMI: Chest pain sounds atypical. However mild elevation of troponins 0.08, 0.07, 0.07, flat, could be elevated 2/2 to ESRD, but was previously 0.02 on 01/13/14 and the patient was on HD at that time as well. EKG reviewed, RBBB, nonspecific ST/T-wave changes, no significant change from previous and 2013. Currently on heparin GTT. Consulted cardiology, recommended stress testing, patient initially refused, but now is agreeable.. Started metoprolol and Nitropaste. Continue aspirin. Started on statin. ESRD on HD: Dialyzes TTS. 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 GERD/Reza's esophagus: Chronic, but could be exacerbating chest pain as above. Continue Tums as needed. Started on famotidine with renal impairment for GI prophylaxis. Loose stools: Chronic, however if continued diarrhea here will check for C. difficile. Anemia: Hemoglobin 10.3/9.8, previously 12.0 on 01/12/14. Normocytic. No signs of active bleeding, possibly anemia of chronic disease. Iron studies performed which showed increased ferritin, but decreased T-sat%. Epogen with dialysis per nephrology. Diabetes mellitus: Coverage with SSI with [id number]. Chronic medical conditions include schizophrenia and seizure disorder: Continue home Depakote and Geodon. DVT prophylaxis: On heparin drip. PT eval Written by Dwight Hairston, acting as scribe for Dr. Walden on 02/23/16 at 13:18. Discharge Planning Follow up results of stress test tomorrow. Attending Statement The documentation accurately reflects the work performed [id number] by me, Dr. Walden on 02/23/16 at 13:18. Problem Qualifiers (1) Chest pain: Qualified Code: R07.9 - Chest pain, unspecified type (2) Schizophrenia: Qualified Code: F20.9 - Schizophrenia, unspecified type Dwight Hairston Feb 23, 2016 13:18 Andre Walden MD Feb 23, 2016 23:55
[2016-02-23 13:23] LABS: FERRITIN 1142 NG/ML (26-388); TRANSFERRIN IRON PROFILE 186 MG/DL (200-360)
--- NOTE | 2016-02-23 13:31 | EKG ---
Date Performed: 02/22/2016 Time Performed: 22:27:41 PTAGE: 55 years EKG: Sinus rhythm WITH FIRST DEGREE AV BLOCK WITH OCCASIONAL VENTRICULAR PREMATURE COMPLEXES RIGHT BUNDLE BRANCH BLOCK LEFT ANTERIOR FASCICULAR BLOCK MODERATE VOLTAGE CRITERIA FOR LVH, CONSIDER NORMAL VARIANT POSSIBLE S EPTAL MYOCARDIAL INFARCTION , OF INDETERMINATE AGE Since previous tracing, no significant change note d ABNORMAL ECG PREVIOUS TRACING : 02/22/2016 15.21 DOCTOR: Hemal Albright Interpretating Date/Time 02/23/2016 13:30:34
--- NOTE | 2016-02-23 13:36 | EKG ---
Date Performed: 02/22/2016 Time Performed: 15:21:53 PTAGE: 55 years EKG: Sinus rhythm WITH FIRST DEGREE AV BLOCK RIGHT BUNDLE BRANCH BLOCK LEFT ANTERIOR FASCICULAR BLOCK POSSIBLE SEPTAL MYOCARDIAL INFARCTION Since previous tracing, no significant change noted ABNORMAL ECG PREVIOUS TRACING : 01/11/2014 07.44 DOCTOR: Hemal Albright Interpretating Date/Time 02/23/2016 13:32:34
[2016-02-23 14:09] LABS: APTT (PATIENT) 30.7 SEC (24.3-30.1)
[2016-02-23] MEDS: HEPARIN-D5W INJ 250 ML IV SCH (16:00)
[2016-02-23 22:20] LABS: APTT (PATIENT) 28.3 SEC (24.3-30.1)
[2016-02-24] VITALS (8 sets, daily range): BP systolic 104–123; BP diastolic 56–59; PULSE 67–115; RESP 17–18; TEMP 97.1–98.7; O2SAT 92–100
[2016-02-24 04:57] LABS: MEAN CELL VOLUME 92.4 FL (80.0-100.0); MEAN CORPUSCULAR HEMOGLOBIN 30.5 PG (27.0-34.0); PLATELET COUNT 266 TH/MM3 (150-450); RED BLOOD COUNT 3.24 MIL/MM3 (4.50-5.90); RED CELL DISTRIBUTION WIDTH 15.4 % (11.6-17.2); REVIEW FLAG FINAL; WHITE BLOOD COUNT 6.3 TH/MM3 (4.0-11.0)
[2016-02-24] MEDS: NITROGLYCERIN 2% OINT 1 GM PACKET TOPICAL SCH ×3 (05:36→21:04)
[2016-02-24] MEDS: INSULIN ASPART SUPPLEMENTAL SCALE SQ SCH ×4 (07:00→21:04)
[2016-02-24 07:13] LABS: BICARBONATE 23.8 MEQ/L (21.0-32.0); POTASSIUM 4.1 MEQ/L (3.5-5.1)
[2016-02-24] MEDS: SEVELAMER CARBONATE 800 MG TAB PO SCH ×3 (10:20→16:25)
[2016-02-24] MEDS ORDERED: EPOETIN ALFA 10,000 UNITS/ML VIAL IV PRN (11:00)
[2016-02-24] MEDS: HEPARIN-D5W INJ 250 ML IV SCH (14:40)
[2016-02-24] MEDS ORDERED: REGADENOSON INJ 0.4 MG/5 ML SYR ONE (14:45)
--- NOTE | 2016-02-24 15:59 | HHI.NPPN ---
Subjective History of Present Illness The patient is a 55 yo male who presented to the ED 02/21 at the urge of his dialysis facility as he was experiencing chest pain during session yesterday. Says he was about 2 hours into his 3 hour session when he began to have central chest pressure without radiation. He was subsequently given NTG x1 dose and chest pain resolved. The patient denies any previous cardiac history, but he appears to be a questionable historian. Denies any recently missed dialysis sessions. Admits that a typical fluid gain for him in between sessions is about 5kg, which he does believe was the goal at his HD Interval History Seen post dialysis. No verbal complaints. Objective Data Data 02/23/16 02/24/16 19:00 07:00 Intake Total 600 ml 540 ml Output Total 200 ml 275 ml Balance 400 ml 265 ml Intake Oral 600 ml 320 ml IV Total 220 ml Output Urine Total 200 ml 275 ml # Voids 0 # Bowel Movements 0 0 Vital Signs Date Time Temp Pulse Resp B/P Pulse Ox O2 Delivery O2 Flow Rate FiO2 02/24/16 10:10 97.1 72 18 104/59 96 02/24/16 09:32 67 02/24/16 04:00 98.0 69 17 108/56 100 02/24/16 00:00 97.6 94 18 123/58 92 02/23/16 20:00 97.4 86 18 163/103 95 02/23/16 20:00 74 02/23/16 19:56 96 02/23/16 16:00 98.1 89 20 119/64 99 -: 02/24/16 0430 02/24/16 0530 Physical Exam General Appearance: Well Developed, Well Nourished, No Acute Distress, Comfortable Eyes Eye Exam: Sclera White Neck Neck Exam: Trachea Midline Pulmonary Resp Exam: Clear Bilaterally, Breath Sounds Equal, No Distress Cardiology CV Exam: Regular, Normal Sinus Rhythm Gastrointestinal/Abdomen GI Exam: Soft, Non-Tender, Non-Distended Integumentary Skin Exam: Clear, Warm, Dry Extremeties Extremities Exam: No Edema Neurologic Neuro Exam: Alert, Awake Psychiatric Psych Exam: Appropriate Responses Assessment/Plan Problem List: (1) End stage renal failure on dialysis Plan: Continue on TTS HD schedule. Medications should be adjusted for the patient's ESRD. Avoid gadolinium. Dr Andersen resume patient care starting this Friday. (2) Chest pain Plan: Mgmt as per cardiology with stress test today.. CXR shows no effusions or signs of volume overload. (3) Anemia Plan: Repeat CBC with Fe stores Likely has anemia of renal disease Epogen ordered with HD for tomorrow. (4) Hypertension Plan: Continue on home medication regimen (5) DM (diabetes mellitus) Plan: Mgmt as per primary Problem Qualifiers (1) Chest pain: Qualified Code: R07.9 - Chest pain, unspecified type Maria Fernanda Woo MD Feb 24, 2016 15:59
[2016-02-24] MEDS: ZIPRASIDONE HCL 40 MG CAP PO SCH ×2 (16:09→21:03)
[2016-02-24] MEDS: VITAMIN B CMPLX/VITC/FOLIC AC CAP PO SCH (16:09)
[2016-02-24] MEDS: ZIPRASIDONE HCL 60 MG CAP PO SCH ×2 (16:10→21:04)
[2016-02-24] MEDS: ASPIRIN EC 81 MG TABEC PO SCH (16:10)
[2016-02-24] MEDS: FAMOTIDINE 20 MG TAB PO SCH ×2 (16:10→21:03)
[2016-02-24] MEDS: ATORVASTATIN 10 MG TAB PO SCH (16:10)
[2016-02-24] MEDS: METOPROLOL TARTRATE 25 MG TAB PO SCH ×2 (16:10→21:04)
[2016-02-24] MEDS: SODIUM CHLORIDE 0.9% FLUSH 5 ML FLUSH FLUSH SCH ×2 (16:11→21:00)
[2016-02-24] MEDS: DIVALPROEX SODIUM E.R. 500 MG TAB PO SCH (16:11)
--- NOTE | 2016-02-24 16:32 | HHI.PR ---
Subjective Remarks Follow up for chest pain. The patient reports continued midsternal chest pains without radiation, slightly better compared to yesterday. The pain is worse with deep inspiration and is associated with some mild shortness of breath. He denies any fevers/chills or cough. The patient is seen upon returning from dialysis and nuclear stress test. He currently has a basin at bedside because he feels nauseous but no vomiting. He believes he is nauseous because he hasn't ate anything all day. He states he also usually feels "crappy" after dialysis. He would like to try some regular food for dinner. He has no other medical complaints at this time. Objective Vitals Vital Signs Date Time Temp Pulse Resp B/P Pulse Ox O2 Delivery O2 Flow Rate FiO2 02/24/16 10:10 97.1 72 18 104/59 96 02/24/16 09:32 67 02/24/16 04:00 98.0 69 17 108/56 100 02/24/16 00:00 97.6 94 18 123/58 92 02/23/16 20:00 97.4 86 18 163/103 95 02/23/16 20:00 74 02/23/16 19:56 96 I/O 02/23/16 02/23/16 02/23/16 02/24/16 02/24/16 02/24/16 07:00 15:00 23:00 07:00 15:00 23:00 Intake Total 520 ml 600 ml 540 ml 0 ml Output Total 500 ml 200 ml 275 ml 2500 ml Balance 20 ml 400 ml 540 ml -275 ml -2500 ml Intake Oral 520 ml 600 ml 320 ml 0 ml IV Total 220 ml Output Urine Total 500 ml 200 ml 275 ml Hemodialysis 2500 ml # Voids 0 # Bowel Movements 0 0 0 0 Result Diagram: 02/24/16 0430 02/24/16 0530 Imaging Last Impressions Chest X-Ray 02/22/16 1525 Signed Impressions: Service Date/Time: January 15:27 - CONCLUSION: Motion degraded examination without a definite abnormality given the technique. Cardiac silhouette size remains at the upper limits for normal. Gil Meade MD Objective Remarks GENERAL: Well-nourished, well-developed middle aged male patient in [facility]. SKIN: Warm and dry. No rash. LUE AVF. HEAD: Normocephalic. Atraumatic. NECK: Supple. Trachea midline. CARDIOVASCULAR: Regular rate and rhythm. S1, S2 noted. No murmur appreciated. Mid-Anterior chest with mild diffuse TTP. RESPIRATORY: No accessory muscle use. Clear to auscultation. Breath sounds equal bilaterally. GASTROINTESTINAL: Abdomen soft, non-tender, nondistended. Normoactive bowel sounds x4. MUSCULOSKELETAL: No obvious deformities. Extremities without clubbing, cyanosis , or edema. NEUROLOGICAL: Awake and alert. No obvious cranial nerve deficits. Motor grossly within normal limits. Normal speech. PSYCHIATRIC: Appropriate mood and affect; insight and judgment normal. Medications and IVs Current Medications Medications (Trade) Dose Ordered Sig/Diane Route Start Time Stop Time Status Last Admin (Heparin-D5W Inj) 250 ml @ 0 mls/hr TITRATE IV 02/22/16 16:45 02/24/16 14:40 (Nitroglycerin 2% Oint) 1 inch Q8HR TOPICAL 02/22/16 17:15 02/23/16 21:41 (Morphine Inj) 2 mg Q4HR PRN IV PUSH 02/22/16 17:15 (NS Flush) 2 ml UNSCH PRN FLUSH 02/22/16 17:15 (NS Flush) 2 ml BID FLUSH 02/22/16 21:00 02/23/16 21:42 (Zofran Inj) 4 mg Q6H PRN IVP 02/22/16 17:15 (Compazine Supp) 25 mg Q12H PRN SD 02/22/16 17:15 (Dulcolax Supp) 10 mg DAILY PRN SD 02/22/16 17:15 (Milk Of Magnesia Liq) 30 ml Q12H PRN PO 02/22/16 17:15 (Senokot) 17.2 mg Q12H PRN PO 02/22/16 17:15 (Restoril) 15 mg HS PRN PO 02/22/16 17:15 (Lopressor) 12.5 mg Q12HR PO 02/22/16 21:00 02/23/16 21:41 (Pepcid) 10 mg BID PO 02/22/16 21:00 02/23/16 21:41 (Tylenol) 650 mg Q6H PRN PO 02/22/16 18:00 (Ecotrin Ec) 81 mg DAILY PO 02/23/16 09:00 02/23/16 09:18 (Tums Chew) 500 mg TIDPC PRN PO 02/22/16 18:00 (Depakote Er) 1,500 mg DAILY PO 02/23/16 09:00 02/23/16 09:17 (Silvadene 1% Cream (50 Gm)) 1 applic DAILY TOPICAL 02/23/16 09:00 (Geodon) 60 mg BID PO 02/22/16 21:00 02/23/16 21:41 (D50w (Vial) Inj) 25 ml UNSCH PRN IV PUSH 02/22/16 18:00 (Glucagon Inj) 1 mg UNSCH PRN OTHER 02/22/16 18:00 (Geodon) 40 mg BID PO 02/22/16 21:00 02/23/16 21:41 (Nephrocaps) 1 cap DAILY PO 02/23/16 09:00 02/23/16 09:18 Atorvastatin Calcium 10 mg 10 mg DAILY PO 02/23/16 09:00 02/23/16 09:00 (NS 1000 ml Inj) 1,000 ml @ 0 mls/hr Q0M PRN IV 02/23/16 11:18 02/24/16 12:44 Heparin Sodium (Porcine) 8000 units 8,000 units UNSCH PRN IVF 02/23/16 11:30 Sodium Chloride 1,000 ml @ 200 mls/hr Q5H PRN IV 02/23/16 11:18 (NS 1000 ml Inj) 1,000 ml @ 0 mls/hr Q0M PRN IV 02/23/16 11:18 (Mannitol Inj) 12.5 gm UNSCH PRN IV 02/23/16 11:30 (Albumin 25% Inj) 25 gm UNSCH PRN IV 02/23/16 11:30 (NS Flush) 5 ml UNSCH PRN IVF 02/23/16 11:30 (Heparin Inj) UNSCH PRN .XX 02/23/16 11:30 (Gentamicin (Dialysis) Inj) 20 mg UNSCH PRN IV 02/23/16 11:30 (Zofran Inj) 4 mg UNSCH PRN IV 02/23/16 11:30 (Tylenol) 650 mg UNSCH PRN PO 02/23/16 11:30 (Benadryl) 25 mg UNSCH PRN PO 02/23/16 11:30 (Nitrostat Sl) 0.4 mg UNSCH PRN SL 02/23/16 11:30 (Catapres) 0.1 mg UNSCH PRN PO 02/23/16 11:30 (Epogen Inj) 10,000 units UNSCH PRN IV 02/24/16 11:00 02/24/16 12:44 (Gelfoam 12 Mm/7 Mm Top) 1 foam UNSCH PRN TOP 02/23/16 11:30 02/24/16 12:45 (Renvela) 800 mg TIDAC PO 02/23/16 12:00 02/23/16 16:05 Urinary Catheter: No Vascular Central Line Catheter: No A/P Problem List: (1) Chest pain ICD Code: R07.9 Status: Acute (2) Schizophrenia ICD Code: F20.9 Status: Chronic (3) DM (diabetes mellitus) ICD Code: E11.9 Status: Chronic (4) End stage renal failure on dialysis ICD Code: N18.6 Status: Chronic (5) Non-STEMI (non-ST elevated myocardial infarction) ICD Code: I21.4 Status: Acute Assessment and Plan 55-year-old male with a past medical history of ESRD, seizure disorder, DM, Reza's esophagus, schizophrenia who presented to the ED from dialysis with chest pain Chest pain/NSTEMI: Chest pain sounds atypical and is reproducible to palpation. However mild elevation of troponins 0.08, 0.07, 0.07, flat, could be elevated 2/ 2 to ESRD, but was previously 0.02 on 01/13/14 and the patient was on HD at that time as well. EKG reviewed, RBBB, nonspecific ST/T-wave changes, no significant change from previous and 2013. Currently on heparin GTT. Consulted cardiology, nuclear stress test done today, awaiting results. Started metoprolol and Nitropaste. Continue aspirin. Started on statin. ESRD on HD: Dialyzes at [facility]. 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 S/p HD . GERD/Reza's esophagus: Chronic, but could be exacerbating chest pain as above. Continue Tums as needed. Started on famotidine with renal impairment for GI prophylaxis. Loose stools: Chronic, however if continued diarrhea here will check for C. difficile. Had 1 loose stool today, prior to this last BM was 2 days ago, doubt Cdiff. Instructed RN to obtain sample if starts having significant diarrhea. Anemia: Hemoglobin 10.3/9.8, previously 12.0 on 01/12/14. Normocytic. No signs of active bleeding, possibly anemia of chronic disease. Iron studies performed which showed increased ferritin, but decreased T-sat%. Epogen with dialysis per nephrology. Diabetes mellitus: Coverage with SSI with [employer]. Chronic medical conditions include schizophrenia and seizure disorder: Continue home Depakote and Geodon. DVT prophylaxis: On heparin drip. Discharge Planning Patient still not feeling well. Nuclear stress test pending. Discharge pending further clinical improvement, hopefully in the next 1-2 days. Attending Statement patient seen briefly this afternoon. Feels nauseous but no vomiting. Appears comfortable. awaiting results of perfusion scan. Appreciate cardiology assistance.otherwise as above. Problem Qualifiers (1) Chest pain: Qualified Code: R07.9 - Chest pain, unspecified type (2) Schizophrenia: Qualified Code: F20.9 - Schizophrenia, unspecified type Luma Narayan PA-C Feb 24, 2016 16:32 Andre Walden MD Feb 24, 2016 18:41
--- NOTE | 2016-02-24 16:35 | RADRPT ---
EXAM DATE/TIME: 02/24/2016 14:12 [place] COMPARISON: No previous studies available for comparison. INDICATIONS : Midsternal chest pain, dull and constant. Angina. DOSE: 29.5 mCi Tc99m Myoview at stress. 10.7 mCi Tc99m Myoview at rest. 0.4 mg Lexiscan STRESS SYMPTOMS: Chest pain and shortness of breath. EJECTION FRACTION: 68% MEDICAL HISTORY : Hyperparathyroidism. Hypercholesterolemia. Gastroesophageal reflux disease. Hepatitis C and end stage renal disease. SURGICAL HISTORY : Tonsillectomy. Arteriovenus shunt. ENCOUNTER: Initial ACUITY: 2 days PAIN SCALE: 8/10 LOCATION: Midsternal chest TECHNIQUE: The patient underwent pharmacologic stress with infusion of prescribed dose. Continuous ECG tracing was monitored during stress. Gated SPECT imaging was performed after stress and conventional SPECT i maging was performed at rest. The examination was performed on a SPECT/CT scanner, both attenuation and non-corrected datasets were reviewed. FINDINGS: DISTRIBUTION: The maximum perfused segment at stress is in the septal wall. PERFUSION STUDY: Mild perfusion deficit seen at stress in the anterolateral wall. GATED STUDY: There is intact wall motion and thickening without hypokinetic or dyskinetic segments. CONCLUSION: Small, mild stress-induced ischemia anterolateral wall. Otherwise normal perfusion. Normal wall motio n. RISK CATEGORY: Moderate Gil Maurer MD on February 24, 2016 at 16:32 Board Certified Radiologist. This report was verified electronically.
[2016-02-24 18:45] LABS: APTT (PATIENT) 31.5 SEC (24.3-30.1)
[2016-02-25] VITALS (7 sets, daily range): BP systolic 100–109; BP diastolic 50–56; PULSE 77–86; RESP 18; TEMP 98–98.3; O2SAT 94–98
[2016-02-25 04:05] LABS: APTT (PATIENT) 34.5 SEC (24.3-30.1)
[2016-02-25 04:15] LABS: HEMATOCRIT 33.1 % (39.0-51.0); MEAN CELL VOLUME 92.5 FL (80.0-100.0); MEAN CORPUSCULAR HEMOGLOBIN 30.8 PG (27.0-34.0); MEAN CORPUSCULAR HGB CONC 33.2 % (32.0-36.0); PLATELET COUNT 337 TH/MM3 (150-450); RED BLOOD COUNT 3.58 MIL/MM3 (4.50-5.90); RED CELL DISTRIBUTION WIDTH 15.4 % (11.6-17.2); REVIEW FLAG FINAL; WHITE BLOOD COUNT 7.8 TH/MM3 (4.0-11.0)
[2016-02-25 04:17] LABS: BICARBONATE 29.6 MEQ/L (21.0-32.0); POTASSIUM 3.9 MEQ/L (3.5-5.1)
[2016-02-25] MEDS: NITROGLYCERIN 2% OINT 1 GM PACKET TOPICAL SCH ×2 (06:28→13:22)
[2016-02-25] MEDS: INSULIN ASPART SUPPLEMENTAL SCALE SQ SCH ×3 (06:28→16:00)
[2016-02-25] MEDS: ZIPRASIDONE HCL 60 MG CAP PO SCH (08:54)
[2016-02-25] MEDS: DIVALPROEX SODIUM E.R. 500 MG TAB PO SCH (08:54)
[2016-02-25] MEDS: VITAMIN B CMPLX/VITC/FOLIC AC CAP PO SCH (08:55)
[2016-02-25] MEDS: ZIPRASIDONE HCL 40 MG CAP PO SCH (08:55)
[2016-02-25] MEDS: FAMOTIDINE 20 MG TAB PO SCH (08:56)
[2016-02-25] MEDS: METOPROLOL TARTRATE 25 MG TAB PO SCH (08:56)
[2016-02-25] MEDS: SEVELAMER CARBONATE 800 MG TAB PO SCH ×2 (08:56→13:20)
[2016-02-25] MEDS: SODIUM CHLORIDE 0.9% FLUSH 5 ML FLUSH FLUSH SCH (08:56)
[2016-02-25] MEDS: ATORVASTATIN 10 MG TAB PO SCH (08:56)
[2016-02-25] MEDS: ASPIRIN EC 81 MG TABEC PO SCH (08:57)
[2016-02-25] MEDS: HEPARIN-D5W INJ 250 ML IV SCH (10:07)
[2016-02-25 11:04] LABS: APTT (PATIENT) 34.9 SEC (24.3-30.1)
--- NOTE | 2016-02-25 12:51 | PD.CARD.PN ---
Subjective Subjective Remarks Pt reports pleuritic CP that is almost gone Objective Medications Current Medications Medications (Trade) Dose Ordered Sig/Diane Route Start Time Stop Time Status Last Admin (Heparin-D5W Inj) 250 ml @ 0 mls/hr TITRATE IV 02/22/16 16:45 02/25/16 10:07 (Nitroglycerin 2% Oint) 1 inch Q8HR TOPICAL 02/22/16 17:15 02/25/16 06:28 (Morphine Inj) 2 mg Q4HR PRN IV PUSH 02/22/16 17:15 (NS Flush) 2 ml UNSCH PRN FLUSH 02/22/16 17:15 (NS Flush) 2 ml BID FLUSH 02/22/16 21:00 02/25/16 08:56 (Zofran Inj) 4 mg Q6H PRN IVP 02/22/16 17:15 (Compazine Supp) 25 mg Q12H PRN [place] 02/22/16 17:15 (Dulcolax Supp) 10 mg DAILY PRN [place] 02/22/16 17:15 (Milk Of Magnodette Liq) 30 ml Q12H PRN PO 02/22/16 17:15 (Senokot) 17.2 mg Q12H PRN PO 02/22/16 17:15 (Restoril) 15 mg HS PRN PO 02/22/16 17:15 (Lopressor) 12.5 mg Q12HR PO 02/22/16 21:00 02/25/16 08:56 (Pepcid) 10 mg BID PO 02/22/16 21:00 02/25/16 08:56 (Tylenol) 650 mg Q6H PRN PO 02/22/16 18:00 (Ecotrin Ec) 81 mg DAILY PO 02/23/16 09:00 02/25/16 08:57 (Tums Chew) 500 mg TIDPC PRN PO 02/22/16 18:00 (Depakote Er) 1,500 mg DAILY PO 02/23/16 09:00 02/25/16 08:54 (Silvadene 1% Cream (50 Gm)) 1 applic DAILY TOPICAL 02/23/16 09:00 02/25/16 08:54 (Geodon) 60 mg BID PO 02/22/16 21:00 02/25/16 08:54 (D50w (Vial) Inj) 25 ml UNSCH PRN IV PUSH 02/22/16 18:00 (Glucagon Inj) 1 mg UNSCH PRN OTHER 02/22/16 18:00 (Geodon) 40 mg BID PO 02/22/16 21:00 02/25/16 08:55 (Nephrocaps) 1 cap DAILY PO 02/23/16 09:00 02/25/16 08:55 Atorvastatin Calcium 10 mg 10 mg DAILY PO 02/23/16 09:00 02/25/16 08:56 (NS 1000 ml Inj) 1,000 ml @ 0 mls/hr Q0M PRN IV 02/23/16 11:18 02/24/16 12:44 Heparin Sodium (Porcine) 8000 units 8,000 units UNSCH PRN IVF 02/23/16 11:30 Sodium Chloride 1,000 ml @ 200 mls/hr Q5H PRN IV 02/23/16 11:18 (NS 1000 ml Inj) 1,000 ml @ 0 mls/hr Q0M PRN IV 02/23/16 11:18 (Mannitol Inj) 12.5 gm UNSCH PRN IV 02/23/16 11:30 (Albumin 25% Inj) 25 gm UNSCH PRN IV 02/23/16 11:30 (NS Flush) 5 ml UNSCH PRN IVF 02/23/16 11:30 (Heparin Inj) UNSCH PRN .XX 02/23/16 11:30 (Gentamicin (Dialysis) Inj) 20 mg UNSCH PRN IV 02/23/16 11:30 (Zofran Inj) 4 mg UNSCH PRN IV 02/23/16 11:30 (Tylenol) 650 mg UNSCH PRN PO 02/23/16 11:30 (Benadryl) 25 mg UNSCH PRN PO 02/23/16 11:30 (Nitrostat Sl) 0.4 mg UNSCH PRN SL 02/23/16 11:30 (Catapres) 0.1 mg UNSCH PRN PO 02/23/16 11:30 (Epogen Inj) 10,000 units UNSCH PRN IV 02/24/16 11:00 02/24/16 12:44 (Gelfoam 12 Mm/7 Mm Top) 1 foam UNSCH PRN TOP 02/23/16 11:30 02/24/16 12:45 (Renvela) 800 mg TIDAC PO 02/23/16 12:00 02/25/16 08:56 Vital Signs / I&O Vital Signs Date Time Temp Pulse Resp B/P Pulse Ox O2 Delivery O2 Flow Rate FiO2 02/25/16 12:08 98.1 77 18 101/50 95 02/25/16 08:25 98.3 82 18 103/55 94 02/25/16 08:00 Room Air 02/25/16 07:55 79 02/25/16 07:14 96 21 02/25/16 04:00 98.0 85 18 109/53 95 02/25/16 04:00 Room Air 02/25/16 01:53 96 21 02/25/16 00:00 Room Air 02/25/16 00:00 98.0 86 18 100/56 98 02/24/16 21:03 83 02/24/16 20:00 Room Air 02/24/16 20:00 98.3 91 17 105/58 92 02/24/16 17:40 96 21 02/24/16 17:19 98.7 115 18 109/56 96 I/O 02/24/16 02/24/16 02/24/16 02/25/16 02/25/16 02/25/16 07:00 15:00 23:00 07:00 15:00 23:00 Intake Total 0 ml 338 ml 137 ml Output Total 275 ml 2700 ml Balance -275 ml -2362 ml 137 ml Intake Oral 0 ml 240 ml IV Total 98 ml 137 ml Output Urine Total 275 ml 200 ml Hemodialysis 2500 ml # Voids 0 # Bowel Movements 0 0 Physical Exam GENERAL: Well developed, well nourished. No acute distress. HEENT: Jugular venous pressure is normal. CHEST: Lungs clear to auscultation bilaterally. Unlabored respiratory effort. CARDIAC: Regular rate and rhythm without S3, S4, or murmur. ABDOMEN: Soft, nontender, no hepatosplenomegaly. Bowel sounds present. EXTREMITIES: No clubbing, cyanosis, or edema. Laboratory Laboratory Tests Test 02/24/16 02/25/16 02/25/16 17:57 03:33 10:27 Activated Partial 31.5 SEC 34.5 SEC 34.9 SEC Thromboplast Time White Blood Count 7.8 TH/MM3 Red Blood Count 3.58 MIL/MM3 Hemoglobin 11.0 GM/DL Hematocrit 33.1 % Mean Corpuscular Volume 92.5 FL Mean Corpuscular Hemoglobin 30.8 PG Mean Corpuscular Hemoglobin 33.2 % Concent Red Cell Distribution Width 15.4 % Platelet Count 337 TH/MM3 Mean Platelet Volume 9.1 FL Sodium Level 138 MEQ/L Potassium Level 3.9 MEQ/L Chloride Level 96 MEQ/L Carbon Dioxide Level 29.6 MEQ/L Anion Gap 12 MEQ/L Blood Urea Nitrogen 24 MG/DL Creatinine 6.59 MG/DL Estimat Glomerular Filtration 9 ML/MIN Rate Random Glucose 85 MG/DL Calcium Level 9.9 MG/DL Imaging Last 72 hours Impressions Myocardial Perfusion Scan Nuc Med 02/24/16 0600 Signed Impressions: Service Date/Time: Wednesday, February 24, 2016 14:12 - CONCLUSION: Small, mild stress-induced ischemia anterolateral wall. Otherwise normal perfusion. Normal wall motion. RISK CATEGORY: Moderate Gil Maurer MD Chest X-Ray 02/22/16 1525 Signed Impressions: Service Date/Time: January 15:27 - CONCLUSION: Motion degraded examination without a definite abnormality given the technique. Cardiac silhouette size remains at the upper limits for normal. Gil Meade MD Assessment and Plan Assessment and Plan Atypical-Pleuritic CP-- small, mild basal anterolateral defect that will be medically managed, as discussed with patient -on aspirin and beta sal - ok for d/c and follow up as OP HTN- very labile, low today -need to optimize BP with HD (per nephro) Troponin elevation- felt secondary to HTN at this point ESRD- on HD per nephro Available Savanah Beaulieu MD Feb 25, 2016 12:51
[2016-02-25] MEDS ORDERED: METO25TA3 PO (13:38)
[2016-02-25] MEDS ORDERED: SEVEL800 PO (13:38)
--- NOTE | 2016-02-25 13:41 | HHI.DCPOC ---
Discharge Care Plan Diagnosis: (1) Chest pain (2) Non-STEMI (non-ST elevated myocardial infarction) (3) End stage renal failure on dialysis Goals to Promote Your Health * To prevent worsening of your condition and complications * To maintain your health at the optimal level Directions to Meet Your Goals Take your medications as prescribed Follow your dietary instruction Follow activity as directed Keep your appointments as scheduled Take your immunizations and boosters as scheduled If your symptoms worsen call your PCP, if no PCP go to Urgent Care Center or Emergency Room Smoking is Dangerous to Your Health. Avoid second hand smoke Call the 24-hour hour crisis hotline for domestic abuse at Andre Walden MD Feb 25, 2016 13:41
[2016-02-25] MEDS ORDERED: FAMO20TA2 PO (13:46)
--- NOTE | 2016-02-25 13:48 | HHI.PR ---
Subjective Remarks Patient seen today around noon. Says he feels well. Denies any chest pain or shortness of breath. Denies any nausea or vomiting. Says he wants to go home Perfusion scan reviewed, small ischemic defect. Discussed with cardiology. Cardiology is cleared for discharge. Objective Vital Signs Date Time Temp Pulse Resp B/P Pulse Ox O2 Delivery O2 Flow Rate FiO2 02/25/16 12:08 98.1 77 18 101/50 95 02/25/16 08:25 98.3 82 18 103/55 94 02/25/16 08:00 Room Air 02/25/16 07:55 79 02/25/16 07:14 96 21 02/25/16 04:00 98.0 85 18 109/53 95 02/25/16 04:00 Room Air 02/25/16 01:53 96 21 02/25/16 00:00 Room Air 02/25/16 00:00 98.0 86 18 100/56 98 02/24/16 21:03 83 02/24/16 20:00 Room Air 02/24/16 20:00 98.3 91 17 105/58 92 02/24/16 17:40 96 21 02/24/16 17:19 98.7 115 18 109/56 96 I/O 02/24/16 02/24/16 02/24/16 02/25/16 02/25/16 02/25/16 07:00 15:00 23:00 07:00 15:00 23:00 Intake Total 0 ml 338 ml 137 ml Output Total 275 ml 2700 ml Balance -275 ml -2362 ml 137 ml Intake Oral 0 ml 240 ml IV Total 98 ml 137 ml Output Urine Total 275 ml 200 ml Hemodialysis 2500 ml # Voids 0 # Bowel Movements 0 0 Result Diagram: 02/25/16 0333 02/25/16 0333 Objective Remarks GENERAL: Patient lying in bed. Appears comfortable. Alert and oriented 3. SKIN: Warm and dry. HEAD: Normocephalic. EYES: No scleral icterus. No injection or drainage. NECK: Supple, trachea midline. No JVD. CARDIOVASCULAR: Regular rate and rhythm without murmurs, gallops, or rubs. RESPIRATORY: Breath sounds equal bilaterally. No accessory muscle use. GASTROINTESTINAL: Abdomen soft, non-tender, nondistended. MUSCULOSKELETAL: No cyanosis, or edema. BACK: Nontender without obvious deformity. No CVA tenderness. A/P Assessment and Plan 55-year-old male with a past medical history of ESRD, seizure disorder, DM, Reza's esophagus, schizophrenia who presented to the ED from dialysis with chest pain //Chest pain/NSTEMI: Chest pain sounds atypical and is reproducible to palpation. However mild elevation of troponins 0.08, 0.07, 0.07, flat, could be elevated 2/2 to ESRD, but was previously 0.02 on 01/13/14 and the patient was on HD at that time as well. EKG reviewed, RBBB, nonspecific ST/T-wave changes, no significant change from previous and 2013. -Perfusion scan with small ischemic defect. Continue metoprolol. Discussed with cardiology. Discharge home. Follow-up with cardiology as outpatient. ESRD on HD: Dialyzes at [facility]. Consulted patient's machine ii cutter. S/p HD . Follow-up with outpatient machine ii cutter, hemodialysis. GERD/Reza's esophagus: Chronic, but could be exacerbating chest pain as above. Continue Tums as needed. Started on famotidine with renal impairment for GI prophylaxis. -02/24. Discharge home with prescription for Lodine. He is to follow-up with gastroenterology. Loose stools: Chronic -Has not had diarrhea here. Doubt any infectious diarrhea. Follow-up with primary care. Anemia: Hemoglobin 10.3/9.8, previously 12.0 on 01/12/14. Normocytic. No signs of active bleeding, possibly anemia of chronic disease. Iron studies performed which showed increased ferritin, but decreased T-sat%. Continue Epogen with dialysis per nephrology. Diabetes mellitus: Patient received Coverage with SSI with [employer]. Chronic medical conditions include schizophrenia and seizure disorder: Continue home Depakote and Geodon. DVT prophylaxis: On heparin drip. Discharge Planning Small ischemic defect on perfusion scan. Cleared by cardiology. Discharge home. Follow-up with cardiology as outpatient. Prescription for metoprolol, sevelamer, famotidine Andre Walden MD Feb 25, 2016 13:48
--- NOTE | 2016-02-25 13:52 | HHI.DS ---
cc: Felix Antony MD Discharge Summary Admission Date Feb 22, 2016 at 16:51 Discharge Date: Feb 25, 2016 Admitting Diagnosis chest pain, non-STEMI, ESRD, HD dependent (1) Chest pain ICD Code: R07.9 (2) Schizophrenia ICD Code: F20.9 (3) DM (diabetes mellitus) ICD Code: E11.9 (4) End stage renal failure on dialysis ICD Code: N18.6 (5) Non-STEMI (non-ST elevated myocardial infarction) ICD Code: I21.4 Procedures No invasive procedures performed. Patient did undergo dialysis Brief History - From Admission 55-year-old male with a past medical history of ESRD, seizure disorder, DM, Reza's esophagus, schizophrenia who presented to the ED from dialysis with chest pain. The patient states that during dialysis today he began having cramping epigastric pain which radiated into his chest. He describes the chest pain as sharp like a knife. He denies any radiation of the chest pain. He states the pain was relieved with nitroglycerin. Upon further questioning, he does state that the epigastric/mid chest pain is similar to when he had an EGD done and was diagnosed with Reza's esophagus. He denies any diaphoresis, nausea, vomiting. Does have a chronic dry cough. He denies any fevers or chills. He does have chronic loose stools, multiple episodes per day. He denies any recent antibiotic use. He does still make some urine. His special systems technician is Dr. Antony. He denies any prior cardiac history. CBC/BMP: 02/25/16 0333 02/25/16 0333 Significant Findings Laboratory Tests Test 02/22/16 02/22/16 02/23/16 02/23/16 15:40 22:29 04:20 12:28 Red Blood Count 3.38 MIL/MM3 3.21 MIL/MM3 (4.50-5.90) (4.50-5.90) Hemoglobin 10.3 GM/DL 9.8 GM/DL (13.0-17.0) (13.0-17.0) Hematocrit 31.2 % 29.6 % (39.0-51.0) (39.0-51.0) Monocytes (%) (Auto) 10.3 % 14.2 % (0.0-8.0) (0.0-8.0) Prothrombin Time 13.4 SEC (9.8-11.6) Blood Urea Nitrogen 20 MG/DL (7-18) 31 MG/DL (7-18) Creatinine 5.02 MG/DL 6.76 MG/DL (0.60-1.30) (0.60-1.30) Estimat Glomerular Filtration 12 ML/MIN (>89) 8 ML/MIN (>89) Rate Random Glucose 132 MG/DL (74-106) Troponin I 0.08 NG/ML 0.07 NG/ML 0.07 NG/ML (0.02-0.05) (0.02-0.05) (0.02-0.05) Activated Partial 30.3 SEC Thromboplast Time (24.3-30.1) Alkaline Phosphatase 120 U/L (45-117) Albumin 2.4 GM/DL (3.4-5.0) Triglycerides Level 220 MG/DL (42-150) Iron Level 41 MCG/DL (65-175) Percent Iron Saturation 15.7 % (20-50) Ferritin 1142 NG/ML (26-388) 25-Hydroxy Vitamin D Total 5.4 ng/ML (30-100) Parathyroid Hormone (Intact) 1457.2 PG/ML (12.4-76.8) Test 02/23/16 02/24/16 02/24/16 02/24/16 12:45 04:30 05:30 17:57 Activated Partial 30.7 SEC 34.0 SEC 31.5 SEC Thromboplast Time (24.3-30.1) (24.3-30.1) (24.3-30.1) Red Blood Count 3.24 MIL/MM3 (4.50-5.90) Hemoglobin 9.9 GM/DL (13.0-17.0) Hematocrit 30.0 % (39.0-51.0) Blood Urea Nitrogen 41 MG/DL (7-18) Creatinine 8.87 MG/DL (0.60-1.30) Estimat Glomerular Filtration 6 ML/MIN (>89) Rate Phosphorus Level 8.0 MG/DL (2.5-4.9) Albumin 2.4 GM/DL (3.4-5.0) Test 02/25/16 02/25/16 03:33 10:27 Red Blood Count 3.58 MIL/MM3 (4.50-5.90) Hemoglobin 11.0 GM/DL (13.0-17.0) Hematocrit 33.1 % (39.0-51.0) Activated Partial 34.5 SEC 34.9 SEC Thromboplast Time (24.3-30.1) (24.3-30.1) Chloride Level 96 MEQ/L (98-107) Blood Urea Nitrogen 24 MG/DL (7-18) Creatinine 6.59 MG/DL (0.60-1.30) Estimat Glomerular Filtration 9 ML/MIN (>89) Rate Imaging Last Impressions Myocardial Perfusion Scan Nuc Med 02/24/16 0600 Signed Impressions: Service Date/Time: Wednesday, February 24, 2016 14:12 - CONCLUSION: Small, mild stress-induced ischemia anterolateral wall. Otherwise normal perfusion. Normal wall motion. RISK CATEGORY: Moderate Gil Maurer MD Chest X-Ray 02/22/16 1525 Signed Impressions: Service Date/Time: January 15:27 - CONCLUSION: Motion degraded examination without a definite abnormality given the technique. Cardiac silhouette size remains at the upper limits for normal. Gil Meade MD PE at Discharge GENERAL: Well-nourished, well-developed middle aged male patient in [facility]. SKIN: Warm and dry. No rash. LUE AVF. HEAD: Normocephalic. Atraumatic. NECK: Supple. Trachea midline. CARDIOVASCULAR: Regular rate and rhythm. S1, S2 noted. No murmur appreciated. Mid-Anterior chest with mild diffuse TTP. RESPIRATORY: No accessory muscle use. Clear to auscultation. Breath sounds equal bilaterally. GASTROINTESTINAL: Abdomen soft, non-tender, nondistended. Normoactive bowel sounds x4. MUSCULOSKELETAL: No obvious deformities. Extremities without clubbing, cyanosis , or edema. NEUROLOGICAL: Awake and alert. No obvious cranial nerve deficits. Motor grossly within normal limits. Normal speech. PSYCHIATRIC: Appropriate mood and affect; insight and judgment normal. Hospital Course Patient experienced mild elevation in troponin 0.08, 0.07. Cardiology was consulted. Patient placed on heparin drip, nitroglycerin, aspirin. He underwent myocardial perfusion scan which shows small stress-induced ischemic defect. Please see report. Patient's chest pain improved with blood pressure control, addition of famotidine for acid reflux. He was cleared by cardiology for discharge. New prescription for metoprolol, famotidine. -Nephrology was consulted for dialysis, and dialysis was performed during hospitalization. Prescription for sevelamer added. For problem-based summary from most recent progress note, please see below. 55-year-old male with a past medical history of ESRD, seizure disorder, DM, Reza's esophagus, schizophrenia who presented to the ED from dialysis with chest pain //Chest pain/NSTEMI: Chest pain sounds atypical and is reproducible to palpation. However mild elevation of troponins 0.08, 0.07, 0.07, flat, could be elevated 2/2 to ESRD, but was previously 0.02 on 01/13/14 and the patient was on HD at that time as well. EKG reviewed, RBBB, nonspecific ST/T-wave changes, no significant change from previous and 2013. -Perfusion scan with small ischemic defect. Continue metoprolol. Discussed with cardiology. Discharge home. Follow-up with cardiology as outpatient. ESRD on HD: Dialyzes at [facility]. Consulted patient's special systems technician. S/p HD . Follow-up with outpatient special systems technician, hemodialysis. GERD/Reza's esophagus: Chronic, but could be exacerbating chest pain as above. Continue Tums as needed. Started on famotidine with renal impairment for GI prophylaxis. -02/24. Discharge home with prescription for Lodine. He is to follow-up with gastroenterology. Loose stools: Chronic -Has not had diarrhea here. Doubt any infectious diarrhea. Follow-up with primary care. Anemia: Hemoglobin 10.3/9.8, previously 12.0 on 01/12/14. Normocytic. No signs of active bleeding, possibly anemia of chronic disease. Iron studies performed which showed increased ferritin, but decreased T-sat%. Continue Epogen with dialysis per nephrology. Diabetes mellitus: Patient received Coverage with SSI with [employer]. Chronic medical conditions include schizophrenia and seizure disorder: Continue home Depakote and Geodon. DVT prophylaxis: On heparin drip. Discharge Planning Patient feeling great. Small ischemic defect on perfusion scan. Cleared by cardiology. Discharge home. Follow-up with cardiology as outpatient. Prescription for metoprolol, sevelamer, famotidine Pt Condition on Discharge: Good Discharge Disposition: Discharge Home Discharge Time: <= 30 minutes Discharge Instructions Follow up Referrals: Cardiology - 2 Weeks with Savanah New MD Nephrology - 2-3 Days PCP Follow-up - 1 Week with Felix Antony MD New Medications: Famotidine (Famotidine) 20 Mg Tab 10 MG PO BID Gerd Days 30 TAB Metoprolol Tartrate (Metoprolol Tartrate) 25 Mg Tab 12.5 MG PO Q12HR heart Days 30 TAB Sevelamer Carbonate (Renvela) 800 Mg Tab 800 MG PO TIDAC phosphate binder Days 30 TAB Continued Medications: Acetaminophen (Tylenol) 325 Mg Tab 650 MG PO Q6H PRN PAIN 1-10 AND/OR FEVER >101F Ref 0 TAB Aspirin (Aspirin) 81 Mg Tabdr 81 MG PO DAILY TAB B-Complex W/ C & Folic Acid (Aracely-Annelise) 1 Tab 1 TAB PO DAILY TAB Calcium Carbonate (Antacid) (Tums) 500 Mg Chew 500 MG PO TIDPC PRN HEARTBURN Ref 0 TAB Divalproex ER (Depakote ER) 500 Mg Prema 1500 MG PO DAILY Control Seizures #30 Ref 0 TAB Insulin Aspart Inj (Novolog Inj) 1,000 Unit/10 Ml Vial 0 SQ DIRECTED Sliding Scale as directed. Blood Sugar Management #10 Ref 0 ML Silver Sulfadiazine Topical (Silvadene Topical) 1 % Cream 1 APPLIC TOPICAL DIRECTED Wound Management #50 Ref 0 GM Ziprasidone (Geodon) 80 Mg Cap 100 MG PO BID Take 1 capsule (80mg) with 20mg capsule for a total dose of 100mg #60 Ref 0 CAP Discontinued Medications: Ziprasidone (Geodon) 20 Mg Cap 100 MG PO BID Take 1 capsule (20mg) with 80mg capsule for a total dose of 100mg #60 Ref 0 CAP Andre Walden MD Feb 25, 2016 13:52
== END 2016-02-25 17:55 | DRG 313 ==
LOC: NEPE 15:03 → NEDA 16:51 → N04A 21:50
PROVIDERS: ADMIT Internal Medicine; ATTEND Internal Medicine
PROC: 5A1D00Z (ICD-10-PCS; principal; 2016-02-24)
DX: R07.89 Other chest pain (principal); N18.6 End stage renal disease; I12.0 Hypertensive chronic kidney disease with stage 5 chronic kidney disease or end stage renal disease; E11.22 Type 2 diabetes mellitus with diabetic chronic kidney disease; I45.2 Bifascicular block; E11.40 Type 2 diabetes mellitus with diabetic neuropathy, unspecified; G40.909 Epilepsy, unspecified, not intractable, without status epilepticus; K22.70 Barrett's esophagus without dysplasia; Z99.2 Dependence on renal dialysis; Z85.828 Personal history of other malignant neoplasm of skin; F41.9 Anxiety disorder, unspecified; E78.00 Pure hypercholesterolemia, unspecified; Z79.4 Long term (current) use of insulin; H91.90 Unspecified hearing loss, unspecified ear; B19.20 Unspecified viral hepatitis C without hepatic coma; F20.9 Schizophrenia, unspecified; E21.3 Hyperparathyroidism, unspecified; R05 Cough; Z77.22 Contact with and (suspected) exposure to environmental tobacco smoke (acute) (chronic); F31.9 Bipolar disorder, unspecified; E78.5 Hyperlipidemia, unspecified; K21.9 Gastro-esophageal reflux disease without esophagitis; D63.8 Anemia in other chronic diseases classified elsewhere; I45.10 Unspecified right bundle-branch block
CPT/HCPCS: 71010; 78452; 80048; 80061; 80069; 80076; 82306; 82550; 82728; 82948; 83540; 83550; 83735; 83970; 84484; 85025; 85027; 85610; 85730; 90935; 93005; 93017; 96374; A9502; J1644; J1815; J2785; J7030; Q4081

== ENCOUNTER 2016-04-03 10:47 | Emergency (ER) | payer MEDICARE, OTHER ==
[~2016-04-03] VITALS: Ht 190.5 cm; Wt 100.0 kg
[~2016-04-03 10:47] MED LIST changes: -ACET325 PO; +ASPI1TAB69 PO; -ASPI81TA82 PO; -BUSP10 PO; +FAMO20TA2 PO; -GEMF600 PO; -GENT0.1C TOP; -HYDRO50 PO; -MAGN30S PO; +METO25TA3 PO; -NEXI40CA PO; -SENS90TA PO; +SEVEL800 PO; +SILV1CRE20 TOPICAL; -SILV1CRE59 TOP; +TYLE325T PO
[2016-04-03 10:49] VITALS: BP 105/59; PULSE 87; RESP 12; TEMP 97.6; O2SAT 98
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
== END 2016-04-03 12:23 | disposition home or self-care (01) ==
LOC: NEPB 10:47
DX: M54.2 Cervicalgia (principal); E11.9 Type 2 diabetes mellitus without complications; I10 Essential (primary) hypertension; N19 Unspecified kidney failure; E21.3 Hyperparathyroidism, unspecified; E78.00 Pure hypercholesterolemia, unspecified; Z99.2 Dependence on renal dialysis; Z79.84 Long term (current) use of oral hypoglycemic drugs; Z86.2 Personal history of diseases of the blood and blood-forming organs and certain disorders involving the immune mechanism; Z86.59 Personal history of other mental and behavioral disorders; Z86.79 Personal history of other diseases of the circulatory system; Z87.19 Personal history of other diseases of the digestive system; V89.2XXA Person injured in unspecified motor-vehicle accident, traffic, initial encounter; Y92.410 Unspecified street and highway as the place of occurrence of the external cause
CPT/HCPCS: 99283

== ENCOUNTER 2016-05-07 01:59 | Inpatient (IN) | payer MEDICARE, OTHER ==
[~2016-05-07] VITALS: Ht 182.9 cm; Wt 88.0 kg
[2016-05-07] VITALS (9 sets, daily range): BP systolic 97–144; BP diastolic 56–78; PULSE 84–112; RESP 19–21; TEMP 98–98.8; O2SAT 95–98
[2016-05-07] MEDS ORDERED: HYDROmorphone HCL PF 1 MG/ML VIAL IVS ONE (02:30)
[2016-05-07] MEDS ORDERED: IBUP200T2 PO (02:30)
[2016-05-07] MEDS ORDERED: ONDANSETRON HCL 4 MG/2 ML VIAL IVP ONE (02:30)
[2016-05-07] MEDS ORDERED: ONDANSETRON HCL 4 MG/2 ML VIAL IV PUSH ONE (02:30)
[2016-05-07] MEDS ORDERED: ZANTTAB9 PO (02:30)
[2016-05-07] MEDS ORDERED: PROZ20CA11 PO (02:30)
[2016-05-07 02:38] LABS: AUTOMATED NEUTROPHIL # 8.8 TH/MM3 (1.8-7.7); BASOPHIL # 0.1 TH/MM3 (0-0.2); BASOPHIL % 0.8 % (0.0-2.0); EOSINOPHIL # 0.1 TH/MM3 (0-0.4); EOSINOPHIL % 0.5 % (0.0-4.0); HEMATOCRIT 29.2 % (39.0-51.0); HEMO FLAGS DIFF FINAL; LYMPH % 6.7 % (9.0-44.0); LYMPHOCYTE # 0.7 TH/MM3 (1.0-4.8); MEAN CELL VOLUME 90.6 FL (80.0-100.0); MEAN CORPUSCULAR HEMOGLOBIN 30.2 PG (27.0-34.0); MEAN CORPUSCULAR HGB CONC 33.3 % (32.0-36.0); MONO % 9.6 % (0.0-8.0); NEUT % 82.4 % (16.0-70.0); PLATELET COUNT 230 TH/MM3 (150-450); RED BLOOD COUNT 3.23 MIL/MM3 (4.50-5.90); RED CELL DISTRIBUTION WIDTH 17.2 % (11.6-17.2); WHITE BLOOD COUNT 10.7 TH/MM3 (4.0-11.0)
[2016-05-07 02:49] LABS: APTT (PATIENT) 27.1 SEC (24.3-30.1); INTERNATIONAL NORMALIZED RATIO 1.1 RATIO; PROTHROMBIN TIME - PATIENT 12.2 SEC (9.8-11.6)
[2016-05-07 02:52] LABS: ALT (GPT) 20 U/L (12-78); ANION GAP 18 MEQ/L (5-15); AST (GOT) 12 U/L (15-37); BICARBONATE 23.4 MEQ/L (21.0-32.0); BLOOD UREA NITROGEN 84 MG/DL (7-18); CHLORIDE 98 MEQ/L (98-107); GLOMERULAR FILTRATION RATE 6 ML/MIN (>89); POTASSIUM 4.7 MEQ/L (3.5-5.1); SODIUM (NA) 139 MEQ/L (136-145)
[2016-05-07 02:54] LABS: ALKALINE PHOSPHATASE 175 U/L (45-117); TOTAL BILIRUBIN ADULT 0.3 MG/DL (0.2-1.0)
--- NOTE | 2016-05-07 03:30 | PD ---
HPI Chief Complaint: Hip Injury Time Seen by Provider: 02:21 Travel History International Travel<30 days: No Contact w/Intl Traveler<30days: No Traveled to known affect area: No History of Present Illness HPI 55-year-old male arrives from [facility]. He is a resident there. He experienced a mechanical slip and fall landing on the left hip. An x-ray there revealed a femoral head fracture. Patient complains of constant left hip pain. It's worse with accidental or intentional movement. He denies head trauma. He has no additional complaints. The patient is end-stage renal disease Friday. His nursing secretary is Dr. Smiley Antony. [facility] Past Medical History Anemia: Yes Arthritis: No Asthma: No Autoimmune Disease: No Blood Disorders: No Anxiety: Yes Depression: Yes Heart Rhythm Problems: No Cancer: Yes (skin cancer squamous facial) Cardiovascular Problems: Yes High Cholesterol: Yes Chemotherapy: No Chest Pain: Yes Congestive Heart Failure: No COPD: No Cerebrovascular Accident: No Diabetes: Yes Patient Takes Glucophage: No Dialysis: Yes (//FRI) Diminished Hearing: Yes (DIMINISHED IN R EYE) Endocrine: Yes Gastrointestinal Disorders: Yes (GERD) GERD: No Glaucoma: No Genitourinary: Yes (RENAL FAILURE. DIALYSIS 3X'S WEEKLY) Headaches: No Hepatitis: Yes (TYPE C) Hiatal Hernia: No Heparin Induced Thrombocytopen: No Hypertension: Yes Immune Disorder: No Implanted Vascular Access Dvce: Yes Kidney Stones: No Medical other: Yes (MULTIPLE OPEN AREAS FROM SCRATCHING ON UPPER AND LOWER EXTREMITIES) Musculoskeletal: No Neurologic: No Psychiatric: Yes (SCHIZOPHRENIA) Reproductive: No Respiratory: No Immunizations Current: Yes Migraines: No Myocardial Infarction: No Radiation Therapy: No Renal Failure: Yes (ON HEMODIALYSIS) Schizophrenia: Yes Seizures: No Sickle Cell Disease: No Sleep Apnea: No Thyroid Disease: Yes (HYPER PARATHYROIDISM) Ulcer: No Tetanus Vaccination: > 5 Years Past Surgical History Abdominal Surgery: No AICD: No Appendectomy: No Arteriovenous Shunt: Yes (left upper arm) Cardiac Surgery: No Cholecystectomy: No Ear Surgery: No Endocrine Surgery: No Eye Surgery: No Genitourinary Surgery: No Gynecologic Surgery: No Insulin Pump: No Joint Replacement: No Neurologic Surgery: No Oral Surgery: Yes (T & A) Pacemaker: No Thoracic Surgery: No Tonsillectomy: Yes Other Surgery: Yes (shunt to left arm / SKIN SURGERY TO FOREHEAD) Social History Alcohol Use: No Tobacco Use: No Substance Use: No Allergies-Medications (Allergen,Severity, Reaction): Coded Allergies: Vee (Verified Adverse Reaction, Unknown, PT DENIES ALLERGY, 05/07/16) Pt denies allergy Reported Meds & Prescriptions Reported Meds & Active Scripts Active Renvela (Sevelamer Carbonate) 800 Mg Tab 800 Mg PO TIDAC 30 Days Metoprolol Tartrate 25 Mg Tab 12.5 Mg PO Q12HR 30 Days Reported Zantac 75 (Ranitidine HCl) 75 Mg Tab 75 Mg PO DAILY Take 30 to 60 minutes before eating food or drinking beverages that cause heartburn. Prozac (Fluoxetine HCl) 20 Mg Cap 20 Mg PO HS Ibuprofen 200 Mg Tab 200 Mg PO Q6H PRN Geodon (Ziprasidone) 80 Mg Cap 80 Mg PO BID Take 1 capsule (80mg) with 20mg capsule for a total dose of 100mg Aracely-Annelise (B-Complex W/ C & Folic Acid) 1 Tab 1 Tab PO DAILY Depakote ER (Divalproex Sodium) 500 Mg Prema 500 Mg PO BID Novolog Inj (Insulin Aspart) 1,000 Unit/10 Ml Vial 0 SQ DIRECTED Sliding Scale as directed. Tums (Calcium Carbonate (Antacid)) 500 Mg Chew 500 Mg PO TIDPC PRN Aspirin 81 Mg Tabdr 81 Mg PO DAILY Tylenol (Acetaminophen) 325 Mg Tab 650 Mg PO Q6H PRN Review of Systems Except as stated in HPI: all other systems reviewed are Neg General / Constitutional: No: Fever Musculoskeletal: Positive: Pain Physical Exam Narrative GENERAL: 55-year-old male SKIN: Warm and dry. HEAD: Atraumatic. Normocephalic. EYES: Pupils equal and round. No scleral icterus. No injection or drainage. ENT: No nasal bleeding or discharge. Mucous membranes pink and moist. NECK: Trachea midline. No JVD. CARDIOVASCULAR: Regular rate and rhythm. No murmur appreciated. RESPIRATORY: No accessory muscle use. Clear to auscultation. Breath sounds equal bilaterally. GASTROINTESTINAL: Abdomen soft, non-tender, nondistended. Hepatic and splenic margins not palpable. MUSCULOSKELETAL: Tenderness overlying the region of the left greater trochanter. The left lower extremity is shortened and slightly externally rotated. NEUROLOGICAL: Awake and alert. No obvious cranial nerve deficits. Motor grossly within normal limits. Normal speech. PSYCHIATRIC: Appropriate mood and affect; insight and judgment normal. Data Data Last Documented VS Vital Signs Date Time Temp Pulse Resp B/P Pulse Ox O2 Delivery O2 Flow Rate FiO2 05/07/16 02:42 98.4 112 20 144/58 98 Vital signs reviewed Orders Electrocardiogram (05/07/16 02:21) Complete Blood Count With Diff (05/07/16 02:21) Comprehensive Metabolic Panel (05/07/16 02:21) Prothrombin Time / Inr (Pt) (05/07/16 02:21) Act Partial Throm Time (Ptt) (05/07/16 02:21) Urinalysis - C+S If Indicated (05/07/16 02:21) Chest, Single Ap (05/07/16 02:21) Hip, Uni(Ap&Lat) W Ap Pelvis (05/07/16 02:21) Iv Access Insert/Monitor (05/07/16 02:21) Oximetry (05/07/16 02:21) Ecg Monitoring (05/07/16 02:21) Ondansetron Inj (Zofran Inj) (05/07/16 02:30) Sodium Chloride 0.9% Flush (Ns Flush) (05/07/16 02:30) Hydromorphone Pf Inj (Dilaudid Pf Inj) (05/07/16 02:30) Ondansetron Inj (Zofran Inj) (05/07/16 02:30) Admit Order (Ed Use Only) (05/07/16 03:33) Consult Orthopedic (05/07/16 ) Consult Nephrology (05/07/16 ) Labs Laboratory Tests Test 05/07/16 02:15 White Blood Count 10.7 TH/MM3 Red Blood Count 3.23 MIL/MM3 Hemoglobin 9.7 GM/DL Hematocrit 29.2 % Mean Corpuscular Volume 90.6 FL Mean Corpuscular Hemoglobin 30.2 PG Mean Corpuscular Hemoglobin 33.3 % Concent Red Cell Distribution Width 17.2 % Platelet Count 230 TH/MM3 Mean Platelet Volume 9.5 FL Neutrophils (%) (Auto) 82.4 % Lymphocytes (%) (Auto) 6.7 % Monocytes (%) (Auto) 9.6 % Eosinophils (%) (Auto) 0.5 % Basophils (%) (Auto) 0.8 % Neutrophils # (Auto) 8.8 TH/MM3 Lymphocytes # (Auto) 0.7 TH/MM3 Monocytes # (Auto) 1.0 TH/MM3 Eosinophils # (Auto) 0.1 TH/MM3 Basophils # (Auto) 0.1 TH/MM3 CBC Comment DIFF FINAL Differential Comment Prothrombin Time 12.2 SEC Prothromb Time International 1.1 RATIO Ratio Activated Partial 27.1 SEC Thromboplast Time Sodium Level 139 MEQ/L Potassium Level 4.7 MEQ/L Chloride Level 98 MEQ/L Carbon Dioxide Level 23.4 MEQ/L Anion Gap 18 MEQ/L Blood Urea Nitrogen 84 MG/DL Creatinine 9.48 MG/DL Estimat Glomerular Filtration 6 ML/MIN Rate Random Glucose 166 MG/DL Calcium Level 9.7 MG/DL Total Bilirubin 0.3 MG/DL Aspartate Amino Transf 12 U/L (AST/SGOT) Alanine Aminotransferase 20 U/L (ALT/SGPT) Alkaline Phosphatase 175 U/L Total Protein 7.0 GM/DL Albumin 3.1 GM/DL [facility] Medical Decision Making Medical Screen Exam Complete: Yes Emergency Medical Condition: Yes Medical Record Reviewed: Yes Differential Diagnosis Pelvis fracture, femur fracture, electrolyte imbalance, anemia Narrative Course CBC & BMP Diagram 05/07/16 02:15 LFTs essentially normal Imaging of the pelvis and left femur reveal an impacted femoral neck fracture CXR reveals cardiomegaly without dense consolidation The patient has received 0.5 mg hydromorphone with good pain control. Patient will be admitted to the hospitalist service. Patient will be admitted for operative repair. D/w Dr Elliott. Ortho consultation placed. Renal consultation placed. Diagnosis Primary Impression: Femoral neck fracture Qualified Code: S72.002A - Closed fracture of neck of left femur, initial encounter Additional Impressions: Fall Qualified Code: W19.XXXA - Fall, initial encounter ESRD (end stage renal disease) Admitting Information Admitting Physician Requests: Admit Capo Russ MD May 07, 2016 03:30
[2016-05-07] MEDS ORDERED: SODIUM CHLOR 0.9% 1000 ML INJ 1,000 ML IV SCH (03:33)
[2016-05-07] MEDS ORDERED: ACETAMINOPHEN 325 MG TAB PO PRN ×2 (03:45→09:15)
[2016-05-07] MEDS ORDERED: NALOXONE HCL 0.4 MG/ML AMP IV PRN (03:45)
[2016-05-07] MEDS ORDERED: HYDROmorphone HCL PF 1 MG/ML VIAL IV PRN (03:45)
[2016-05-07] MEDS ORDERED: MAGNESIUM HYDROXIDE SUSP 30 ML CUP PO PRN (03:45)
--- NOTE | 2016-05-07 03:55 | RADRPT ---
EXAM DATE/TIME: 05/07/2016 02:46 [facility] COMPARISON: CHEST SINGLE AP, January 07, 2014, 5:50. CHEST SINGLE AP, February 22, 2016, 15:27. INDICATIONS : Trauma. Fall today. MEDICAL HISTORY : None. SURGICAL HISTORY : None. ENCOUNTER: Initial ACUITY: 1 day PAIN SCORE: 2/10 LOCATION: Bilateral chest FINDINGS: Single AP view of the chest. Mild patchy left perihilar midlung opacity. The lungs are otherwise alexy r. Cardiac silhouette is mildly prominent and unchanged. No evidence of pleural effusion or pneumotho rax. CONCLUSION: 1. Atelectasis versus mild consolidation in the left midlung. 2. Mild chronic cardiac silhouette enlargement. Rayo Cespedes MD on May 07, 2016 at 3:51 Board Certified Radiologist. This report was verified electronically.
--- NOTE | 2016-05-07 04:00 | RADRPT ---
EXAM DATE/TIME: 05/07/2016 02:46 [facility] COMPARISON: No previous studies available for comparison. INDICATIONS : Left hip pain post fall today. MEDICAL HISTORY : None. SURGICAL HISTORY : None. ENCOUNTER: Initial ACUITY: 1 day PAIN SCORE: 10/10 LOCATION: Left hip. FINDINGS: 3 views of the left hip and pelvis. Mildly impacted left femoral neck fracture. Hip joint alignment w ithin normal limits. CONCLUSION: Left femoral neck fracture. Rayo Cespedes MD on May 07, 2016 at 3:57 Board Certified Radiologist. This report was verified electronically.
[2016-05-07] MEDS: HYDROmorphone HCL PF 1 MG/ML VIAL IV PRN ×4 (05:29→21:21)
[2016-05-07] MEDS ORDERED: SODIUM CHLOR 0.9% 1000 ML INJ 1,000 ML IV PRN ×3 (09:06)
[2016-05-07] MEDS ORDERED: HEPARIN SODIUM - IV 10,000 UNITS/10 ML VIAL PRN (09:15)
[2016-05-07] MEDS ORDERED: cloNIDine HCL 0.1 MG TAB PO PRN (09:15)
[2016-05-07] MEDS ORDERED: SODIUM CHLORIDE 0.9% FLUSH 5 ML FLUSH IVF PRN (09:15)
[2016-05-07] MEDS ORDERED: GENTAMICIN SULFATE (DIALYSIS USE ONLY) 20 MG/2 ML VIAL IV PRN (09:15)
[2016-05-07] MEDS ORDERED: diphenhydrAMINE HCL 25 MG CAP PO PRN (09:15)
[2016-05-07] MEDS ORDERED: MANNITOL 12.5 GM/50 ML VIAL IV PRN (09:15)
[2016-05-07] MEDS ORDERED: NITROGLYCERIN 0.4 MG SL 25 TABS/BTL SL PRN (09:15)
[2016-05-07] MEDS ORDERED: HEPARIN SODIUM - IV 10,000 UNITS/10 ML VIAL IVF PRN (09:15)
--- NOTE | 2016-05-07 09:43 | PD.CONS ---
HPI Service Nephrology Consult Requested By ESRD on HD Primary Care Physician Felix Antony MD History of Present Illness This is a 55 y/o male who was at a rehab facility when he fell. Suffering a left femoral neck fracture, he was admitted for treatment. PMH of ESRD on HD T-, he is due today. Other PMH listed below, he has not missed any dialysis treatments. We were consulted for dialysis management. He is having some pain in left leg, has vomited today due to pain medication administration. He is a full code. (Zahra Aguilar) Review of Systems Constitutional: COMPLAINS OF: Fatigue Cardiovascular: DENIES: Lower Extremity Edema Gastrointestinal: COMPLAINS OF: Nausea Musculoskeletal: COMPLAINS OF: Joint pain, Stiffness (Zahra Aguilar) Past Family Social History Allergies: Coded Allergies: Vee (Verified Adverse Reaction, Unknown, PT DENIES ALLERGY, 05/07/16) Pt denies allergy Past Medical History ESRD on HD - HTN Hyperlipidemia anemia metabolic bone disorder Past Surgical History L arm AVF tonsils/adenoids forehead skin lesion removed Reported Medications Renvela (Sevelamer Carbonate) 800 Mg Tab 800 Mg PO TIDAC 30 Days Metoprolol Tartrate 25 Mg Tab 12.5 Mg PO Q12HR 30 Days Zantac 75 (Ranitidine HCl) 75 Mg Tab 75 Mg PO DAILY Take 30 to 60 minutes before eating food or drinking beverages that cause heartburn. Prozac (Fluoxetine HCl) 20 Mg Cap 20 Mg PO HS Ibuprofen 200 Mg Tab 200 Mg PO Q6H PRN Geodon (Ziprasidone) 80 Mg Cap 80 Mg PO BID Take 1 capsule (80mg) with 20mg capsule for a total dose of 100mg Aracely-Annelise (B-Complex W/ C & Folic Acid) 1 Tab 1 Tab PO DAILY Depakote ER (Divalproex Sodium) 500 Mg Prema 500 Mg PO BID Novolog Inj (Insulin Aspart) 1,000 Unit/10 Ml Vial 0 SQ DIRECTED Sliding Scale as directed. Tums (Calcium Carbonate (Antacid)) 500 Mg Chew 500 Mg PO TIDPC PRN Aspirin 81 Mg Tabdr 81 Mg PO DAILY Tylenol (Acetaminophen) 325 Mg Tab 650 Mg PO Q6H PRN Active Ordered Medications Current Medications Medications (Trade) Dose Ordered Sig/Diane Route Start Time Stop Time Status Last Admin (NS Flush) 2 ml UNSCH PRN IVF 05/07/16 02:30 (Tylenol) 650 mg Q4H PRN PO 05/07/16 03:45 (Zofran Inj) 4 mg Q6H PRN IVP 05/07/16 03:45 (Milk Of Magnodette Liq) 30 ml Q12H PRN PO 05/07/16 03:45 (Tylenol) 650 mg Q6H PRN PO 05/07/16 03:45 (Dilaudid Pf Inj) 0.2 mg Q3H PRN IV 05/07/16 03:45 (Dilaudid Pf Inj) 0.5 mg Q3H PRN IV 05/07/16 03:45 05/07/16 08:41 Naloxone HCl 0.4 mg 0.4 mg UNSCH PRN IV 05/07/16 03:45 (NS 1000 ml Inj) 1,000 ml @ 0 mls/hr Q0M PRN IV 05/07/16 09:06 Heparin Sodium (Porcine) 8000 units 8,000 units UNSCH PRN IVF 05/07/16 09:15 Sodium Chloride 1,000 ml @ 200 mls/hr Q5H PRN IV 05/07/16 09:06 (NS 1000 ml Inj) 1,000 ml @ 0 mls/hr Q0M PRN IV 05/07/16 09:06 (Mannitol Inj) 12.5 gm UNSCH PRN IV 05/07/16 09:15 (Albumin 25% Inj) 25 gm UNSCH PRN IV 05/07/16 09:15 (NS Flush) 5 ml UNSCH PRN IVF 05/07/16 09:15 (Heparin Inj) UNSCH PRN .XX 05/07/16 09:15 (Gentamicin (Dialysis) Inj) 20 mg UNSCH PRN IV 05/07/16 09:15 (Zofran Inj) 4 mg UNSCH PRN IV 05/07/16 09:15 (Tylenol) 650 mg UNSCH PRN PO 05/07/16 09:15 (Benadryl) 25 mg UNSCH PRN PO 05/07/16 09:15 (Nitrostat Sl) 0.4 mg UNSCH PRN SL 05/07/16 09:15 (Catapres) 0.1 mg UNSCH PRN PO 05/07/16 09:15 (Epogen Inj) 10,000 units UNSCH PRN IV 05/07/16 09:15 (Gelfoam 12 Mm/7 Mm Top) 1 foam UNSCH PRN TOP 05/07/16 09:15 (Renvela) 800 mg TIDAC PO 05/07/16 12:00 Family History No hx of renal disorders Social History No smoking or ETOH 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[employer], 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, single full code (Zahra Aguilar) Physical Exam Vital Signs Vital Signs Date Time Temp Pulse Resp B/P Pulse Ox O2 Delivery O2 Flow Rate FiO2 05/07/16 08:59 94 19 112/62 96 05/07/16 05:29 98.4 103 20 103/59 97 05/07/16 05:14 20 05/07/16 04:59 20 95 05/07/16 04:57 98.4 105 20 97/56 95 05/07/16 02:42 98.4 112 20 144/58 98 05/07/16 02:08 98.4 112 20 144/58 98 05/07/16 02:08 20 98 Physical Exam Middle aged male, lying supine awake/oriented, left hand tremor S1/S2, regular rate, no murmurs lungs clear in all acuna abdomen obese, soft, non tender ext: no edema, left arm AVF patent Laboratory Laboratory Tests Test 05/07/16 02:15 White Blood Count 10.7 Red Blood Count 3.23 Hemoglobin 9.7 Hematocrit 29.2 Mean Corpuscular Volume 90.6 Mean Corpuscular Hemoglobin 30.2 Mean Corpuscular Hemoglobin 33.3 Concent Red Cell Distribution Width 17.2 Platelet Count 230 Mean Platelet Volume 9.5 Neutrophils (%) (Auto) 82.4 Lymphocytes (%) (Auto) 6.7 Monocytes (%) (Auto) 9.6 Eosinophils (%) (Auto) 0.5 Basophils (%) (Auto) 0.8 Neutrophils # (Auto) 8.8 Lymphocytes # (Auto) 0.7 Monocytes # (Auto) 1.0 Eosinophils # (Auto) 0.1 Basophils # (Auto) 0.1 CBC Comment DIFF FINAL Differential Comment Prothrombin Time 12.2 Prothromb Time International 1.1 Ratio Activated Partial 27.1 Thromboplast Time Sodium Level 139 Potassium Level 4.7 Chloride Level 98 Carbon Dioxide Level 23.4 Anion Gap 18 Blood Urea Nitrogen 84 Creatinine 9.48 Estimat Glomerular Filtration 6 Rate Random Glucose 166 Calcium Level 9.7 Total Bilirubin 0.3 Aspartate Amino Transf 12 (AST/SGOT) Alanine Aminotransferase 20 (ALT/SGPT) Alkaline Phosphatase 175 Total Protein 7.0 Albumin 3.1 (Zahra Aguilar) Result Diagram: 05/07/1621405/07/16214 Assessment and Plan Problem List: (1) ESRD (end stage renal disease) Plan: dialysis today and T-Th-Sat, he is due today electrolytes unremarkable no IVF required, will stop the current order continue renvela for metabolic bone disorder renal panel in am high protein diet (2) Hypertension Plan: resume home medications (3) Anemia Plan: epogen with HD (4) Femoral neck fracture Plan: ortho to be consulted pain medications prn (Zahra Aguilar) Assessment and Plan patient was seen and examined. We will continue dialysis TTS. He suffers from bipolar illness. Non compliant with dietary restrictions, but usually does not miss dialysis treatments. (Felix Andersen MD) Problem Qualifiers (1) Femoral neck fracture: Qualified Code: S72.002A - Closed fracture of neck of left femur, initial encounter Zahra Aguilar May 07, 2016 09:43 Felix Andersen MD May 07, 2016 20:32
--- NOTE | 2016-05-07 11:01 | PD.ORT.PN ---
Subjective Distance Walked FULL CONSULT NOTE TO FOLLOW left hip femoral neck fx in bed, c/o mild left hip pain. no CP/SOB. h/o ESRD Objective Vitals Vital Signs Date Time Temp Pulse Resp B/P Pulse Ox O2 Delivery O2 Flow Rate FiO2 05/07/16 08:59 94 19 112/62 96 05/07/16 05:29 98.4 103 20 103/59 97 05/07/16 05:14 20 05/07/16 04:59 20 95 05/07/16 04:57 98.4 105 20 97/56 95 05/07/16 02:42 98.4 112 20 144/58 98 05/07/16 02:08 98.4 112 20 144/58 98 05/07/16 02:08 20 98 Result Diagram: 05/07/1621405/07/16214 Other Results Laboratory Tests Test 05/07/16 02:15 Prothrombin Time 12.2 SEC (9.8-11.6) Prothromb Time International 1.1 RATIO Ratio Objective Remarks LLE: grossly nvi. externally rotated. 2+ PT/DP Assessment & Plan Assessment and Plan Left displaced femoral neck fx OR for left hip bipolar lula NPO midnight OR tomorrow pending medical clearance Dimitri Riley Jr., MD May 07, 2016 11:01
[2016-05-07] MEDS: SEVELAMER CARBONATE 800 MG TAB PO SCH ×2 (12:00→17:00)
--- NOTE | 2016-05-07 12:07 | HHI.HP ---
HPI Service [facility] Primary Care Physician Felix Antony MD Admission Diagnosis L Femoral Neck Fx, Fall Diagnoses: Chief Complaint: Left hip pain Travel History International Travel<30 Days: No Contact w/Intl Traveler <30 Da: No Traveled to Known Affected Are: No History of Present Illness The patient is a 55-year-old male with a past medical history of end-stage renal disease and diabetes who is presenting to the hospital following a mechanical fall. The patient says he was wearing extra long socks last night and he tripped over them at around 9 PM. He said he fell down on his left side. He says he did not hit any other part of his body besides the left side. He said he had a severe pain located around his left hip which radiated down his left leg. He stated that the pain went up to 8 out of 10 in severity. The staff at the facility assisted him immediately. He took some Tylenol for pain control. The patient says he has been ambulating without a walker or a cane. He says at the moment he is unable to move his left leg. He says he has been eating well. He denies any fevers. He does endorse one loose bowel movement daily for the past month. He says he last had dialysis on Friday. Review of Systems Except as stated in HPI: all other systems reviewed are Neg Past Family Social History Past Medical History ESRD on HD Seizure disorder Reza's esophagus Diabetes mellitus Schizophrenia Past Surgical History Left upper extremity AV graft EGD Skin cancer removal from the forehead Allergies: Coded Allergies: Vee (Verified Adverse Reaction, Unknown, PT DENIES ALLERGY, 05/07/16) Pt denies allergy Active Ordered Medications Current Medications Medications (Trade) Dose Ordered Sig/Diane Route Start Time Stop Time Status Last Admin (NS Flush) 2 ml UNSCH PRN IVF 05/07/16 02:30 (Tylenol) 650 mg Q4H PRN PO 05/07/16 03:45 (Zofran Inj) 4 mg Q6H PRN IVP 05/07/16 03:45 (Milk Of Magnesia Liq) 30 ml Q12H PRN PO 05/07/16 03:45 (Tylenol) 650 mg Q6H PRN PO 05/07/16 03:45 (Dilaudid Pf Inj) 0.2 mg Q3H PRN IV 05/07/16 03:45 (Dilaudid Pf Inj) 0.5 mg Q3H PRN IV 05/07/16 03:45 05/07/16 08:41 Naloxone HCl 0.4 mg 0.4 mg UNSCH PRN IV 05/07/16 03:45 (NS 1000 ml Inj) 1,000 ml @ 0 mls/hr Q0M PRN IV 05/07/16 09:06 Heparin Sodium (Porcine) 8000 units 8,000 units UNSCH PRN IVF 05/07/16 09:15 Sodium Chloride 1,000 ml @ 200 mls/hr Q5H PRN IV 05/07/16 09:06 (NS 1000 ml Inj) 1,000 ml @ 0 mls/hr Q0M PRN IV 05/07/16 09:06 (Mannitol Inj) 12.5 gm UNSCH PRN IV 05/07/16 09:15 (Albumin 25% Inj) 25 gm UNSCH PRN IV 05/07/16 09:15 (NS Flush) 5 ml UNSCH PRN IVF 05/07/16 09:15 (Heparin Inj) UNSCH PRN .XX 05/07/16 09:15 (Gentamicin (Dialysis) Inj) 20 mg UNSCH PRN IV 05/07/16 09:15 (Zofran Inj) 4 mg UNSCH PRN IV 05/07/16 09:15 (Tylenol) 650 mg UNSCH PRN PO 05/07/16 09:15 (Benadryl) 25 mg UNSCH PRN PO 05/07/16 09:15 (Nitrostat Sl) 0.4 mg UNSCH PRN SL 05/07/16 09:15 (Catapres) 0.1 mg UNSCH PRN PO 05/07/16 09:15 (Epogen Inj) 10,000 units UNSCH PRN IV 05/07/16 09:15 (Gelfoam 12 Mm/7 Mm Top) 1 foam UNSCH PRN TOP 05/07/16 09:15 (Renvela) 800 mg TIDAC PO 05/07/16 12:00 Family History The patient denies pertinent family history. Social History The patient does not smoke, drink or use illicit substances. Physical Exam Vital Signs Vital Signs Date Time Temp Pulse Resp B/P Pulse Ox O2 Delivery O2 Flow Rate FiO2 05/07/16 08:59 94 19 112/62 96 05/07/16 05:29 98.4 103 20 103/59 97 05/07/16 05:14 20 05/07/16 04:59 20 95 05/07/16 04:57 98.4 105 20 97/56 95 05/07/16 02:42 98.4 112 20 144/58 98 05/07/16 02:08 98.4 112 20 144/58 98 05/07/16 02:08 20 98 Physical Exam GENERAL: No apparent distress, resting comfortably. SKIN: Warm and dry. HEAD: Atraumatic. Normocephalic. EYES: Pupils equal and round. No scleral icterus. No injection or drainage. ENT: No nasal bleeding or discharge. Mucous membranes pink and moist. NECK: Trachea midline. No JVD. CARDIOVASCULAR: Regular rate and rhythm. Harsh systolic murmur appreciated. RESPIRATORY: No accessory muscle use. Clear to auscultation. Breath sounds equal bilaterally. GASTROINTESTINAL: Abdomen soft, non-tender, nondistended. Hepatic and splenic margins not palpable. MUSCULOSKELETAL: Tenderness overlying the region of the left greater trochanter. The left lower extremity is shortened and slightly externally rotated. NEUROLOGICAL: Awake and alert. No obvious cranial nerve deficits. Motor grossly within normal limits. Normal speech. PSYCHIATRIC: Appropriate mood and affect; insight and judgment normal. Laboratory Laboratory Tests Test 05/07/16 02:15 White Blood Count 10.7 Red Blood Count 3.23 Hemoglobin 9.7 Hematocrit 29.2 Mean Corpuscular Volume 90.6 Mean Corpuscular Hemoglobin 30.2 Mean Corpuscular Hemoglobin 33.3 Concent Red Cell Distribution Width 17.2 Platelet Count 230 Mean Platelet Volume 9.5 Neutrophils (%) (Auto) 82.4 Lymphocytes (%) (Auto) 6.7 Monocytes (%) (Auto) 9.6 Eosinophils (%) (Auto) 0.5 Basophils (%) (Auto) 0.8 Neutrophils # (Auto) 8.8 Lymphocytes # (Auto) 0.7 Monocytes # (Auto) 1.0 Eosinophils # (Auto) 0.1 Basophils # (Auto) 0.1 CBC Comment DIFF FINAL Differential Comment Prothrombin Time 12.2 Prothromb Time International 1.1 Ratio Activated Partial 27.1 Thromboplast Time Sodium Level 139 Potassium Level 4.7 Chloride Level 98 Carbon Dioxide Level 23.4 Anion Gap 18 Blood Urea Nitrogen 84 Creatinine 9.48 Estimat Glomerular Filtration 6 Rate Random Glucose 166 Calcium Level 9.7 Total Bilirubin 0.3 Aspartate Amino Transf 12 (AST/SGOT) Alanine Aminotransferase 20 (ALT/SGPT) Alkaline Phosphatase 175 Total Protein 7.0 Albumin 3.1 Result Diagram: 05/07/1621405/07/16214 Assessment and Plan Assessment and Plan Left femoral neck fracture The patient sustained a mechanical fall with a resultant left femoral neck fracture. Orthopedic surgery consult appreciated. Per the revised cardiac risk index the patient is at increased risk secondary to elevated creatinine requiring hemodialysis and recent positive stress test. The patient is also on insulin, however, that is a sliding scale dose and the patient is not dependent on it. With that in mind the patient is a moderate risk for a moderate risk procedure. The patient also has an undocumented heart murmur. - Check an echocardiogram. - Pain control with a bowel regimen. - Physical therapy following surgery. - Anticoagulation per orthopedic surgery. - Surgery tentatively scheduled for the morning. Heart murmur/ CAD Last echocardiogram in our system was in 2008 and had no acute abnormality. He recently had a mildly positive stress test which was medically managed by cardiology. The patient has no complaint of chest pain or shortness of breath at this time. - Echocardiogram pending. - Consult cardiology if indicated. Anemia Likely s/t ESRD. Hemoglobin stable compared to prior results. - follow CBC and transfuse as needed. - ASA on hold. ESRD S/t DM. On HD. Nephrology consult appreciated. - dialysis per nephrology. Schizophrenia/ Seizure disorder The pt is on Geodon, fluoxetine and divalproex as an outpt. Mood is stable at this time. - continue home meds. DM The pt is on an insulin sliding scale as an outpt. - check a HgbA1c. - insulin sliding scale. PPx: SCDs. Code Status Full. Discussed Condition With Pt, nurse. Physician Certification 2 Midnight Certification Type: Admission for Inpatient Services Order for Inpatient Services The services are ordered in accordance with Medicare regulations or non- Medicare payer requirements, as applicable. In the case of services not specified as inpatient-only, they are appropriately provided as inpatient services in accordance with the 2-midnight benchmark. Estimated LOS (days): 2 days is the estimated time the patient will need to remain in the hospital, assuming treatment plan goals are met and no additional complications. Post-Hospital Plan: SNF Ernst Ortega DO May 07, 2016 12:07
[2016-05-07] MEDS: DIVALPROEX SODIUM E.R. 500 MG TAB PO SCH ×2 (13:00→21:00)
[2016-05-07 16:49] LABS: HEMOGLOBIN A1a 1.1 %; HEMOGLOBIN Ao 83.5 %; HEMOGLOBIN LA1C 2.4 %; HEMOGLOBIN P3 6.1 %
--- NOTE | 2016-05-07 17:03 | EC ---
Study Study Date:05/07/2016 STUDY CONCLUSIONS SUMMARY - Left ventricle: The cavity size was normal. Wall thickness was normal. Systolic function was vigorous. The estimated ejection fraction was in the range of 65% to 70%. Wall motion was normal; there were no regional wall motion abnormalities. - Aortic valve: Transvalvular velocity was increased. There was critical stenosis. Trace regurgitation. Valve area: 0.44cm^2(VTI). Valve area: 0.51cm^2 (Vmax). - Mitral valve: Moderately to severely calcified annulus. There was a possible, medium-sized, mobile vegetation on the atrial aspect of the posterior aspect of the annulus. Transvalvular velocity was increased. The findings are consistent with moderate stenosis. Mild regurgitation. - Left atrium: The atrium was mildly dilated. - Tricuspid valve: Mild regurgitation. - Pulmonary arteries: Systolic pressure was moderately to severely increased. PA peak pressure: 55mm Hg (S). If LV function is below 40, please consider prescribing an ACEI or ARB or document rationale for non-use. PROCEDURE DATA STUDY STATUS: Elective. Procedure: Transthoracic echocardiography. Image quality was fair. The study was technically limited due to poor acoustic window availability. Scanning was performed from the parasternal, apical, and subcostal acoustic windows. Study completion: The patient tolerated the procedure well. Transthoracic echocardiography. M-mode, complete 2D, complete spectral Doppler, and color Doppler. Height: Height: 72in. Weight: Weight: 241.5lb. Body mass index: BMI: 32.8kg/m^2. Body surface area: BSA: 2.31m^2. Patient status: Inpatient. CARDIAC ANATOMY LEFT VENTRICLE: The cavity size was normal. Wall thickness was normal. Systolic function was vigorous. The estimated ejection fraction was in the range of 65% to 70%. Wall motion was normal; there were no regional wall motion abnormalities. AORTIC VALVE: Probably trileaflet; moderately thickened, severely calcified leaflets. Doppler: Transvalvular velocity was increased. There was critical stenosis. Trace regurgitation. Valve area: 0.44cm^2(VTI). Indexed valve area: 0.19cm^2/m^2 (VTI). Valve area: 0.51cm^2 (Vmax). Indexed valve area: 0.22cm^2/m^2 (Vmax). Mean gradient: 31mm Hg (S). Peak gradient: 113mm Hg (S). AORTA: Aortic root: The aortic root was poorly visualized and normal in size. MITRAL VALVE: Moderately to severely calcified annulus. There was a possible, medium-sized, mobile vegetation on the atrial aspect of the posterior aspect of the annulus. Doppler: Transvalvular velocity was increased. The findings are consistent with moderate stenosis. Mild regurgitation. Peak gradient: 18mm Hg (D). LEFT ATRIUM: The atrium was mildly dilated. RIGHT VENTRICLE: The cavity size was normal. Wall thickness was normal. PULMONIC VALVE: Doppler: Transvalvular velocity was within the normal range. There was no evidence for stenosis. No regurgitation. TRICUSPID VALVE: Structurally normal valve. Doppler: Transvalvular velocity was within the normal range. Mild regurgitation. PULMONARY ARTERY: Systolic pressure was moderately to severely increased. RIGHT ATRIUM: The atrium was normal in size. PERICARDIUM: There was no pericardial effusion. SYSTEMIC VEINS: Inferior vena cava: The vessel was normal in size. Patient weight: 241.5lb _Ejection fraction:_ 65-75% _Fractional shortening:_ 32% up to 5Kg 5-11.5Kg 11.6-22.9Kg 23-45Kg 45-57Kg Aortic Root 7-13 <17 13-22 17-27 17-27 LA diam 6-13 <23 24-38 33-47 37-40 RVID 10-17 7-15 7-15 7-18 8-17 LVIDd 12-22 <32 24-38 33-47 37-40 LVPW 2-4 3-6 5-7 6-8 7-8 IVS 2-4 3-6 5-7 6-8 7-8 BASIC MEASUREMENTS ADULT NORMAL Left ventricle LV internal dimension, ED, chordal *61.8 mm 43-52 level, PLAX LV internal dimension, ES, chordal 33.2 mm 23-38 level, PLAX Fractional shortening, chordal level, 46 % >29 PLAX LV posterior wall thickness, ED 11.3 mm IVS/LVPW ratio, ED 1 <1.3 Ventricular septum Septal thickness, ED 11.3 mm Aorta Root diameter, ED 33 mm Left atrium Anterior-posterior dimension 40 mm Anterior-posterior dimension index 1.73 cm/m^2 <2.2 DOPPLER MEASUREMENTS ADULT NORMAL Main pulmonary artery Pressure, S *55 mm Hg =30 Aortic valve Peak velocity, S 453 cm/s Mean velocity, S 242 cm/s VTI, S 110 cm Mean gradient, S 31 mm Hg Peak gradient, S 113 mm Hg Valve area, VTI 0.44 cm^2 Valve area index, VTI 0.19 cm^2/m^2 Valve area, Vmax 0.51 cm^2 Valve area index, Vmax 0.22 cm^2/m^2 Mitral valve Peak E-wave velocity 215 cm/s Peak A-wave velocity 246 cm/s Deceleration time *144 ms 150-230 Peak gradient, D 18 mm Hg Peak E/A ratio 0.9 Tricuspid valve Regurgitant peak velocity 347 cm/s Peak RV-RA gradient, S 48 mm Hg Maximal regurgitant velocity 347 cm/s Systemic veins Estimated CVP 10 mm Hg Right ventricle RV pressure, S *58 mm Hg <30 Pulmonic valve Peak velocity, S 85.7 cm/s LEGEND: Mean values are shown as u=mean value. Asterisk (*) monroe values outside specified normal range. Prepared and signed by Nash Garcia [id number]
[2016-05-07] MEDS: ONDANSETRON HCL 4 MG/2 ML VIAL IV PRN ×2 (17:04→22:47)
[2016-05-07] MEDS: EPOETIN ALFA 10,000 UNITS/ML VIAL IV PRN (17:04)
[2016-05-07] MEDS: INSULIN ASPART SUPPLEMENTAL SCALE SQ SCH ×2 (18:00→21:00)
[2016-05-07] MEDS: FLUoxetine HCL 20 MG CAP PO SCH (21:00)
[2016-05-07] MEDS: ZIPRASIDONE HCL 80 MG CAP PO SCH (21:00)
[2016-05-07] MEDS: DOCUSATE SODIUM 100 MG CAP PO SCH (21:00)
[2016-05-07] MEDS: METOPROLOL TARTRATE 25 MG TAB PO SCH (21:00)
[2016-05-07] MEDS: ZIPRASIDONE HCL 20 MG CAP PO SCH (21:00)
--- NOTE | 2016-05-07 22:00 | PD.CONS ---
cc: Dimitri Riley Jr., MD HPI Service [facility] Consult Requested By Primary Care Physician Felix Antony MD Admission Diagnosis L Femoral Neck Fx, Fall Diagnoses: Chief Complaint: left hip fracture History of Present Illness This 68-year-old male with end-stage renal disease on dialysis and diabetes presented after a fall at home. Patient complains of LEFT hip pain. Pain is 8 / 10, exacerbated by range of motion and inability to bear weight, not associated with numbness to her LEFT lower extremity, associated with external rotation deformity. The patient says he was wearing extra long socks last night and he tripped over them at around 9 PM. He said he fell down on his left side. He says he did not hit any other part of his body besides the left side. He said he had a severe pain located around his left hip which radiated down his left leg. Resident of [facility]. He took some Tylenol for pain control. Household ambulator without cane/walker. He denies any fevers. He does endorse one loose bowel movement daily for the past month. He says he last had dialysis on Friday. Review of Systems Except as stated in HPI: all other systems reviewed are Neg PFSH Past Family Social History Past Medical History ESRD on HD Seizure disorder Reza's esophagus Diabetes mellitus Schizophrenia Past Surgical History Left upper extremity AV graft EGD Skin cancer removal from the forehead Allergies: Coded Allergies: Vee (Verified Adverse Reaction, Unknown, PT DENIES ALLERGY, 05/07/16) Pt denies allergy Family History The patient denies pertinent family history. Social History The patient does not smoke, drink or use illicit substances Past Family Social History Past Medical History ESRD on HD Seizure disorder Reza's esophagus Diabetes mellitus Schizophrenia Past Surgical History Left upper extremity AV graft EGD Skin cancer removal from the forehead Allergies: Coded Allergies: Vee (Verified Adverse Reaction, Unknown, PT DENIES ALLERGY, 05/07/16) Pt denies allergy Active Ordered Medications Current Medications Medications (Trade) Dose Ordered Sig/Diane Route Start Time Stop Time Status Last Admin (NS Flush) 2 ml UNSCH PRN IVF 05/07/16 02:30 (Tylenol) 650 mg Q4H PRN PO 05/07/16 03:45 (Zofran Inj) 4 mg Q6H PRN IVP 05/07/16 03:45 (Milk Of Magnesia Liq) 30 ml Q12H PRN PO 05/07/16 03:45 (Tylenol) 650 mg Q6H PRN PO 05/07/16 03:45 (Dilaudid Pf Inj) 0.5 mg Q3H PRN IV 05/07/16 03:45 05/07/16 21:21 Naloxone HCl 0.4 mg 0.4 mg UNSCH PRN IV 05/07/16 03:45 (NS 1000 ml Inj) 1,000 ml @ 0 mls/hr Q0M PRN IV 05/07/16 09:06 Heparin Sodium (Porcine) 8000 units 8,000 units UNSCH PRN IVF 05/07/16 09:15 Sodium Chloride 1,000 ml @ 200 mls/hr Q5H PRN IV 05/07/16 09:06 (NS 1000 ml Inj) 1,000 ml @ 0 mls/hr Q0M PRN IV 05/07/16 09:06 (Mannitol Inj) 12.5 gm UNSCH PRN IV 05/07/16 09:15 (Albumin 25% Inj) 25 gm UNSCH PRN IV 05/07/16 09:15 (NS Flush) 5 ml UNSCH PRN IVF 05/07/16 09:15 (Heparin Inj) UNSCH PRN .XX 05/07/16 09:15 (Gentamicin (Dialysis) Inj) 20 mg UNSCH PRN IV 05/07/16 09:15 (Zofran Inj) 4 mg UNSCH PRN IV 05/07/16 09:15 05/07/16 17:04 (Tylenol) 650 mg UNSCH PRN PO 05/07/16 09:15 (Benadryl) 25 mg UNSCH PRN PO 05/07/16 09:15 (Nitrostat Sl) 0.4 mg UNSCH PRN SL 05/07/16 09:15 (Catapres) 0.1 mg UNSCH PRN PO 05/07/16 09:15 (Epogen Inj) 10,000 units UNSCH PRN IV 05/07/16 09:15 05/07/16 17:04 (Gelfoam 12 Mm/7 Mm Top) 1 foam UNSCH PRN TOP 05/07/16 09:15 (Renvela) 800 mg TIDAC PO 05/07/16 12:00 (Roxicodone) 10 mg Q4H PRN PO 05/07/16 12:00 (Roxicodone) 5 mg Q4H PRN PO 05/07/16 12:00 05/07/16 15:57 (Colace) 100 mg BID PO 05/07/16 21:00 (Senokot) 17.2 mg DAILY PO 05/08/16 09:00 (Geodon) 80 mg BID PO 05/07/16 21:00 (Depakote Er) 500 mg BID PO 05/07/16 13:00 (PROzac) 20 mg HS PO 05/07/16 21:00 (Lopressor) 12.5 mg Q12HR PO 05/07/16 21:00 (Pepcid) 20 mg DAILY PO 05/08/16 09:00 (Geodon) 20 mg BID PO 05/07/16 21:00 Reported Meds & Active Scripts Active Renvela (Sevelamer Carbonate) 800 Mg Tab 800 Mg PO TIDAC 30 Days Metoprolol Tartrate 25 Mg Tab 12.5 Mg PO Q12HR 30 Days Reported Zantac 75 (Ranitidine HCl) 75 Mg Tab 75 Mg PO DAILY Take 30 to 60 minutes before eating food or drinking beverages that cause heartburn. Prozac (Fluoxetine HCl) 20 Mg Cap 20 Mg PO HS Ibuprofen 200 Mg Tab 200 Mg PO Q6H PRN Geodon (Ziprasidone) 80 Mg Cap 80 Mg PO BID Take 1 capsule (80mg) with 20mg capsule for a total dose of 100mg Aracely-Annelise (B-Complex W/ C & Folic Acid) 1 Tab 1 Tab PO DAILY Depakote ER (Divalproex Sodium) 500 Mg Prema 500 Mg PO BID Novolog Inj (Insulin Aspart) 1,000 Unit/10 Ml Vial 0 SQ DIRECTED Sliding Scale as directed. Tums (Calcium Carbonate (Antacid)) 500 Mg Chew 500 Mg PO TIDPC PRN Aspirin 81 Mg Tabdr 81 Mg PO DAILY Tylenol (Acetaminophen) 325 Mg Tab 650 Mg PO Q6H PRN Family History The patient denies pertinent family history. Social History The patient does not smoke, drink or use illicit substances. Physical Exam Vital Signs Vital Signs Date Time Temp Pulse Resp B/P Pulse Ox O2 Delivery O2 Flow Rate FiO2 05/07/16 20:07 98.8 84 21 126/78 98 05/07/16 17:42 102 19 123/58 96 05/07/16 17:17 05/07/16 12:16 98.0 85 19 119/60 97 05/07/16 08:59 94 19 112/62 96 05/07/16 05:29 98.4 103 20 103/59 97 05/07/16 05:14 20 05/07/16 04:59 20 95 05/07/16 04:57 98.4 105 20 97/56 95 05/07/16 02:42 98.4 112 20 144/58 98 05/07/16 02:08 98.4 112 20 144/58 98 05/07/16 02:08 20 98 Physical Exam aaox3. nad. In bed resting. Head: Neck normocephalic atraumatic. Trachea midline. Pulmonary: normal respiratory effort. Abdomen: soft nontender Musculoskeletal exam bilateral upper extremity- neurovascular intact. No deformities. LEFT lower extremity- neurovascular intact. short, externally rotated. Intact sensation distally. 2+ palpable dorsalis pedis and posterior tibial pulses. Soft compartments. Negative Homans. RLE: nvi. no deformity Laboratory Laboratory Tests Test 05/07/16 02:15 White Blood Count 10.7 Red Blood Count 3.23 Hemoglobin 9.7 Hematocrit 29.2 Mean Corpuscular Volume 90.6 Mean Corpuscular Hemoglobin 30.2 Mean Corpuscular Hemoglobin 33.3 Concent Red Cell Distribution Width 17.2 Platelet Count 230 Mean Platelet Volume 9.5 Neutrophils (%) (Auto) 82.4 Lymphocytes (%) (Auto) 6.7 Monocytes (%) (Auto) 9.6 Eosinophils (%) (Auto) 0.5 Basophils (%) (Auto) 0.8 Neutrophils # (Auto) 8.8 Lymphocytes # (Auto) 0.7 Monocytes # (Auto) 1.0 Eosinophils # (Auto) 0.1 Basophils # (Auto) 0.1 CBC Comment DIFF FINAL Differential Comment Prothrombin Time 12.2 Prothromb Time International 1.1 Ratio Activated Partial 27.1 Thromboplast Time Sodium Level 139 Potassium Level 4.7 Chloride Level 98 Carbon Dioxide Level 23.4 Anion Gap 18 Blood Urea Nitrogen 84 Creatinine 9.48 Estimat Glomerular Filtration 6 Rate Random Glucose 166 Hemoglobin A1c 5.8 Calcium Level 9.7 Total Bilirubin 0.3 Aspartate Amino Transf 12 (AST/SGOT) Alanine Aminotransferase 20 (ALT/SGPT) Alkaline Phosphatase 175 Total Protein 7.0 Albumin 3.1 Result Diagram: 05/07/1621405/07/16214 Imaging Last 72 hours Impressions Hip and Pelvis X-Ray 05/07/16220 Signed Impressions: Service Date/Time: Saturday, May 07, 2016 02:46 - CONCLUSION: Left femoral neck fracture. Rayo Cespedes MD Chest X-Ray 05/07/16220 Signed Impressions: Service Date/Time: Saturday, May 07, 2016 02:46 - CONCLUSION: 1. Atelectasis versus mild consolidation in the left midlung. 2. Mild chronic cardiac silhouette enlargement. Rayo Cespedes MD Assessment & Plan Assessment and Plan 55-year-old male history of diabetes, ESRD and dialysis presented after a fall at his facility on the LEFT hip, complaint LEFT hip pain. He is grossly neurovascular intact. lower extremity x-ray revealed displaced LEFT femoral neck fracture. I recommend hemiHA. I discussed my treatment plans with the patient, as well as risks, benefits and alternatives of surgical Intervention versus nonoperative treatment. In this case, the risks of operative intervention involves bleeding, infection, risks of damage to neurovascular structures, the risk of needing further surgery, posttraumatic arthritis and the risks involved with complication from anesthesia. All questions were answered. Thank you for consult. Please call with questions. OR pending medical clearance NPO midnight Dimitri Riley Jr., MD May 07, 2016 22:00
[2016-05-07] MEDS ORDERED: PROCHLORPERAZINE INJ 10 MG/2 ML VIAL IVS ONE (22:30)
[2016-05-07] MEDS ORDERED: PANTOPRAZOLE SODIUM 40 MG VIAL IV PUSH ONE (23:30)
[2016-05-08] MEDS: HYDROmorphone HCL PF 1 MG/ML VIAL IV PRN ×3 (00:25→12:42)
[2016-05-08 00:32] VITALS: BP 117/72; PULSE 87; RESP 21; TEMP 98.4; O2SAT 98
[2016-05-08 01:14] LABS: HEMATOCRIT 30.6 % (39.0-51.0); REVIEW FLAG FINAL
[2016-05-08 05:22] VITALS: BP 157/84; PULSE 87; RESP 21; TEMP 98.7; O2SAT 97
[2016-05-08] MEDS: ONDANSETRON HCL 4 MG/2 ML VIAL IVP PRN (05:26)
[2016-05-08] MEDS: INSULIN ASPART SUPPLEMENTAL SCALE SQ SCH ×6 (05:47→20:11)
[2016-05-08 07:05] LABS: AUTOMATED NEUTROPHIL # 10.6 TH/MM3 (1.8-7.7); BASOPHIL % 0.4 % (0.0-2.0); HEMATOCRIT 30.2 % (39.0-51.0); HEMO FLAGS DIFF FINAL; LYMPHOCYTE # 0.5 TH/MM3 (1.0-4.8); MEAN CELL VOLUME 89.1 FL (80.0-100.0); MEAN CORPUSCULAR HEMOGLOBIN 29.3 PG (27.0-34.0); MEAN CORPUSCULAR HGB CONC 32.9 % (32.0-36.0); MONO % 11.9 % (0.0-8.0); NEUT % 83.7 % (16.0-70.0); PLATELET COUNT 217 TH/MM3 (150-450); RED BLOOD COUNT 3.39 MIL/MM3 (4.50-5.90); RED CELL DISTRIBUTION WIDTH 16.6 % (11.6-17.2); WHITE BLOOD COUNT 12.6 TH/MM3 (4.0-11.0)
--- NOTE | 2016-05-08 07:22 | EKG ---
Date Performed: 05/07/2016 Time Performed: 05:07:50 PTAGE: 55 years EKG: SINUS TACHYCARDIA WITH FIRST DEGREE AV BLOCK POSSIBLE LEFT ATRIAL ENLARGEMENT RIGHT BUNDLE BRANCH BLOCK LEFT ANTERIOR FASCICULAR BLOCK POSSIBLE LEFT VENTRICULAR HYPERTROPHY POSSIBLE SEPTAL CHERIE CARDIAL INFARCTION ABNORMAL ECG Compared to the PREVIOUS TRACING , sinus rate is slightly faster PREVIOUS TRACIN02/22/16 DOCTOR: Xu Atkinson Interpretating Date/Time 05/08/2016 07:21:48
[2016-05-08 07:38] LABS: BICARBONATE 29.2 MEQ/L (21.0-32.0); POTASSIUM 4.5 MEQ/L (3.5-5.1)
[2016-05-08] MEDS: SEVELAMER CARBONATE 800 MG TAB PO SCH ×3 (08:00→17:00)
--- NOTE | 2016-05-08 08:25 | MB ---
cc: CYNDI LONGO MD DATE OF CONSULTATION: 05/08/2016 INDICATION Aortic stenosis. HISTORY OF PRESENT ILLNESS This is a 55-year-old gentleman with known history of end-stage renal disease, who presented to the hospital after mechanical fall. Apparently, the patient was wearing extra long socks last night and tripped, fell on his left side. He developed severe left hip and leg pain. He came into the emergency department, had an x-ray which showed femoral hip fracture. Orthopedic surgery was consulted. The patient has prior history of a positive stress test a couple years ago and was considered moderate risk. He also had a heart murmur on exam. His last echocardiogram was in 2008 which did not show any significant valvular abnormalities but was limited imaging. He underwent echocardiogram yesterday which showed critical aortic stenosis, in addition to a mobile echodensity on the posterior mitral valve annulus on the left atrial side. The patient denies any fever or chills. No microbiology is available at this time. His white count is mildly elevated at 12.6. The patient denies any prior history of valvular heart disease and does not report any significant symptoms of angina, although he has some mild shortness of breath with exertion. We are consulted for further recommendations as he is scheduled for orthopedic surgery here this morning. PAST MEDICAL HISTORY 1. End-stage renal disease on hemodialysis. 2. Seizure disorder. 3. Reza's esophagus. 4. Diabetes. 5. Schizophrenia. PAST SURGICAL HISTORY 1. Left upper extremity AV fistula graft. 2. EGD. 3. Skin cancer removed from the forehead. ALLERGIES Denies any drug allergies. SOCIAL HISTORY Denies any alcohol, tobacco or drug use. FAMILY HISTORY Denies any family history of early coronary artery disease, sudden cardiac . REVIEW OF SYSTEMS 12-point review of systems was performed and negative unless otherwise noted in the history of present illness. PHYSICAL EXAMINATION VITAL SIGNS: Temperature 98, pulse 87, blood pressure 157/84 mmHg. GENERAL: Alert and oriented x3, in mild distress. HEENT: Pupils reactive to light and accommodation. Extraocular movements are intact. NECK: No elevation in jugular venous distension. No thyromegaly or lymphadenopathy. No carotid bruits. LUNGS: Clear to auscultation bilaterally. CARDIOVASCULAR: Regular rhythm with frequent ectopy. There is a 3/6 crescendo decrescendo murmur at the right sternal border. ABDOMEN: Abdominal exam is nontender, nondistended. Good bowel sounds. No hepatosplenomegaly. EXTREMITIES: No clubbing, cyanosis or edema. Good peripheral pulses. Cranial nerves intact. Motor and sensory are grossly intact. LABORATORY DATA WBC 12.6, hemoglobin 9.9, platelet count 217, INR is 1.1. Sodium 139, potassium 4.7, BUN is 84, creatinine is 9.48. LFTs within normal limits. ELECTROCARDIOGRAM Electrocardiogram shows sinus rhythm, right bundle-branch block, PVC, nonspecific ST-T wave changes. ASSESSMENT 1. Left hip fracture. 2. Critical aortic stenosis. 3. Possible endocarditis. 4. Endstage renal disease on hemodialysis with a left AV fistula. 5. Hypertension. PLAN Obviously, this is a complicated situation. The patient has a hip fracture which carries significant morbidity without surgical repair. The presence of significant valvular heart disease, in particular severe aortic stenosis, does confer a substantial risk of perioperative cardiac events in individual patients who undergo noncardiac surgery. The challenge remains with the clinical decision whether to perform orthopedic surgery prior to any surgical repair for the aortic valve. We will have to have a discussion with anesthesia. Related to the aortic stenosis, we would likely try to get him through the orthopedic surgery, and except the increased perioperative risk, and then address the aortic valve stenosis after hip surgery recovery. The other confounding factor related to this case is the presence of a mobile echodensity of the posterior mitral valve annulus on the left atrial side. Although, it could represent mitral valve sclerotic changes or prolapsed ruptured leaflet with sclerosis, it does have the appearance more consistent with a vegetative mass. I would recommend strongly we get infectious disease involved in the case, in addition to drawing blood cultures. The white count is mildly elevated. If he has an active endocarditis infection then obviously implanting a hip prosthesis would be contraindicated. If it is a sclerotic mitral valve or possibly an old vegetative mass that is not actively infected, we may be able to get him through the orthopedic surgery on antibiotics. We will await for infectious disease input. Will plan for a transesophageal echocardiogram later today, if anesthesia feels comfortable performing the sedation. This would be performed to better identify the mobile echodensity and see if we could determine if it is more consistent with active endocarditis or sclerosis. Will keep the patient n.p.o. Also, from a preoperative standpoint he is at increased surgical risk just given his end-stage renal disease and the possibility for the presence of coronary disease. He denies any exertional angina and I do believe that he generates greater than 4 METS prior to his fall. At this point we will hold off with any perioperative stress testing, particularly in the presence of severe aortic stenosis. I will discuss the case in detail with hospitalist, orthopedic surgeon, and infectious disease before making any further decisions on his cardiac clearance. MD UMM Rubio/KINA /7:36 AM /7:59 AM DEVANTE
--- NOTE | 2016-05-08 08:59 | HHI.NPPN ---
Subjective General Problems: Anemia Renal Failure: Chronic, End Stage Renal Disease Interval History Pt is resting, pain controlled. Echo showing possible MV vegetation and critical aortic stenosis. (Zahra Aguilar) Review of Systems Musculoskeletal MS: Pain/Stiffness (Zahra Aguilar) Objective Data Data 05/07/16 05/08/16 19:00 07:00 Output Total 3000 ml Balance -3000 ml Output Hemodialysis 3000 ml Vital Signs Date Time Temp Pulse Resp B/P Pulse Ox O2 Delivery O2 Flow Rate FiO2 05/08/16 05:22 98.7 87 21 157/84 97 05/08/16 00:32 98.4 87 21 117/72 98 05/07/16 20:07 98.8 84 21 126/78 98 05/07/16 17:42 102 19 123/58 96 05/07/16 17:17 05/07/16 12:16 98.0 85 19 119/60 97 05/07/16 08:59 94 19 112/62 96 (Zahra Aguilar) -: 05/08/16 0616 05/08/16 0616 Imaging Last Impressions Hip and Pelvis X-Ray 05/07/16220 Signed Impressions: Service Date/Time: Saturday, May 07, 2016 02:46 - CONCLUSION: Left femoral neck fracture. Rayo Cespedes MD Chest X-Ray 05/07/16220 Signed Impressions: Service Date/Time: Saturday, May 07, 2016 02:46 - CONCLUSION: 1. Atelectasis versus mild consolidation in the left midlung. 2. Mild chronic cardiac silhouette enlargement. Rayo Cespedes MD (Zahra Aguilar) Physical Exam General Appearance: Well Developed, Well Nourished, No Acute Distress, Comfortable, Sleeping (Zahra Aguilar) Throat Throat Exam: Oral Mucosa [place] & Moist (Zahra Aguilar) Pulmonary Resp Exam: Clear Bilaterally, Breath Sounds Equal (Zahra Aguilar) Cardiology CV Exam: Normal Sinus Rhythm, Murmur (Zahra Aguilar) Gastrointestinal/Abdomen GI Exam: Soft, Non-Tender, Bowel Sounds Present (Zahra Aguilar) Musculoskeletal MS Exam: Joints Intact, Normal Tone (Zahra Aguilar) Integumentary Skin Exam: Warm, Dry (Zahra Aguilar) Extremeties Extremities Exam: No Edema, Pedal Pulses Palpable (Zahra Aguilar) Neurologic Neuro Exam: Awake, Oriented, Speech Clear, Moving All Extremities (Zahra Aguilar) Psychiatric Psych Exam: Appropriate Responses (Zahra Aguilar) Assessment/Plan Discussed Condition With: Patient Assessment Summary: Anemia of CKD, Hypertension, End Stage Renal Disease Problem List: (1) ESRD (end stage renal disease) Plan: continue HD T-Th-Fri, he had 3L UF yesterday electrolytes unremarkable no IVF required continue Renvela for metabolic bone disorder, dosage increased intermittent renal panel high protein diet when no longer NPO (2) Hypertension Plan: continue home medications; apparently he refused today's dose (3) Anemia Plan: epogen with HD (4) Femoral neck fracture Plan: ortho following pain medications prn (5) Murmur Plan: Last echocardiogram recorded was in 2008, with no acute abnormality. He recently had a mildly positive stress test which was medically managed by cardiology. The patient has no complaint of chest pain or shortness of breath at this time. Echocardiogram revealed critical , questionable vegetation on mitral valve. Cardiology consulted, DAISY ordered ID to be consulted regarding Antibiotic therapy for possible endocarditis prior to introducing prosthesis in left hip (Zahra Aguilar) Plan patient was seen and examined. All the notes were reviewed. DAISY findings noted. ID on the case. Complex situation at this point. Dialysis will be continued TTS. Antibiotics per ID. Prognosis is guarded at this time. (Felix Andersen MD) Problem Qualifiers (1) Femoral neck fracture: Qualified Code: S72.002A - Closed fracture of neck of left femur, initial encounter Zahra Aguilar May 08, 2016 08:59 Felix Andersen MD May 08, 2016 19:47
[2016-05-08] MEDS ORDERED: FAMOTIDINE 20 MG TAB PO SCH (09:00)
[2016-05-08] MEDS: METOPROLOL TARTRATE 25 MG TAB PO SCH ×2 (09:00→20:42)
[2016-05-08] MEDS: SENNOSIDES 8.6 MG TAB PO SCH (09:00)
[2016-05-08] MEDS: DIVALPROEX SODIUM E.R. 500 MG TAB PO SCH ×2 (09:00→20:41)
[2016-05-08] MEDS: DOCUSATE SODIUM 100 MG CAP PO SCH ×2 (09:00→20:41)
[2016-05-08] MEDS: ZIPRASIDONE HCL 20 MG CAP PO SCH ×2 (09:00→20:42)
[2016-05-08] MEDS: ZIPRASIDONE HCL 80 MG CAP PO SCH ×2 (09:00→20:42)
[2016-05-08] MEDS ORDERED: GENTAMICIN SULFATE 80 MG/2 ML VIAL ONE (12:20)
[2016-05-08 12:50] VITALS: BP 118/59; PULSE 86; RESP 19; O2SAT 96
--- NOTE | 2016-05-08 12:56 | HHI.PR ---
Subjective Remarks The patient was nervous about the procedure. He vomited earlier. He wanted some ice chips. He also wanted some pain medication. Discussed with nursing. Objective Vitals Vital Signs Date Time Temp Pulse Resp B/P Pulse Ox O2 Delivery O2 Flow Rate FiO2 05/08/16 05:22 98.7 87 21 157/84 97 05/08/16 00:32 98.4 87 21 117/72 98 05/07/16 20:07 98.8 84 21 126/78 98 05/07/16 17:42 102 19 123/58 96 05/07/16 17:17 I/O 05/07/16 05/07/16 05/07/16 05/08/16 05/08/16 05/08/16 07:00 15:00 23:00 07:00 15:00 23:00 Output Total 3000 ml Balance -3000 ml Output Hemodialysis 3000 ml Result Diagram: 05/08/1616 05/08/1616 Imaging Last Impressions Hip and Pelvis X-Ray 05/07/16220 Signed Impressions: Service Date/Time: Saturday, May 07, 2016 02:46 - CONCLUSION: Left femoral neck fracture. Rayo Cespedes MD Chest X-Ray 05/07/16220 Signed Impressions: Service Date/Time: Saturday, May 07, 2016 02:46 - CONCLUSION: 1. Atelectasis versus mild consolidation in the left midlung. 2. Mild chronic cardiac silhouette enlargement. Rayo Cespedes MD Objective Remarks GENERAL: No apparent distress, resting comfortably. SKIN: Warm and dry. HEAD: Atraumatic. Normocephalic. EYES: Pupils equal and round. No scleral icterus. No injection or drainage. ENT: No nasal bleeding or discharge. Mucous membranes pink and moist. NECK: Trachea midline. No JVD. CARDIOVASCULAR: Regular rate and rhythm. Harsh systolic murmur appreciated. RESPIRATORY: No accessory muscle use. Clear to auscultation. Breath sounds equal bilaterally. GASTROINTESTINAL: Abdomen soft, non-tender, nondistended. Hepatic and splenic margins not palpable. MUSCULOSKELETAL: Tenderness overlying the region of the left greater trochanter. The left lower extremity is shortened and slightly externally rotated. NEUROLOGICAL: Awake and alert. No obvious cranial nerve deficits. Motor grossly within normal limits. Normal speech. PSYCHIATRIC: Anxious. Medications and IVs Current Medications Medications (Trade) Dose Ordered Sig/Diane Route Start Time Stop Time Status Last Admin (NS Flush) 2 ml UNSCH PRN IVF 05/07/16 02:30 (Tylenol) 650 mg Q4H PRN PO 05/07/16 03:45 (Zofran Inj) 4 mg Q6H PRN IVP 05/07/16 03:45 05/08/16 05:26 (Milk Of Magnesia Liq) 30 ml Q12H PRN PO 05/07/16 03:45 (Tylenol) 650 mg Q6H PRN PO 05/07/16 03:45 (Dilaudid Pf Inj) 0.5 mg Q3H PRN IV 05/07/16 03:45 05/08/16 12:42 Naloxone HCl 0.4 mg 0.4 mg UNSCH PRN IV 05/07/16 03:45 (NS 1000 ml Inj) 1,000 ml @ 0 mls/hr Q0M PRN IV 05/07/16 09:06 Heparin Sodium (Porcine) 8000 units 8,000 units UNSCH PRN IVF 05/07/16 09:15 Sodium Chloride 1,000 ml @ 200 mls/hr Q5H PRN IV 05/07/16 09:06 (NS 1000 ml Inj) 1,000 ml @ 0 mls/hr Q0M PRN IV 05/07/16 09:06 (Mannitol Inj) 12.5 gm UNSCH PRN IV 05/07/16 09:15 (Albumin 25% Inj) 25 gm UNSCH PRN IV 05/07/16 09:15 (NS Flush) 5 ml UNSCH PRN IVF 05/07/16 09:15 (Heparin Inj) UNSCH PRN .XX 05/07/16 09:15 (Gentamicin (Dialysis) Inj) 20 mg UNSCH PRN IV 05/07/16 09:15 (Zofran Inj) 4 mg UNSCH PRN IV 05/07/16 09:15 05/07/16 22:47 (Tylenol) 650 mg UNSCH PRN PO 05/07/16 09:15 (Benadryl) 25 mg UNSCH PRN PO 05/07/16 09:15 (Nitrostat Sl) 0.4 mg UNSCH PRN SL 05/07/16 09:15 (Catapres) 0.1 mg UNSCH PRN PO 05/07/16 09:15 (Epogen Inj) 10,000 units UNSCH PRN IV 05/07/16 09:15 05/07/16 17:04 (Gelfoam 12 Mm/7 Mm Top) 1 foam UNSCH PRN TOP 05/07/16 09:15 (Renvela) 800 mg TIDAC PO 05/07/16 12:00 (Roxicodone) 10 mg Q4H PRN PO 05/07/16 12:00 (Roxicodone) 5 mg Q4H PRN PO 05/07/16 12:00 05/07/16 15:57 (Colace) 100 mg BID PO 05/07/16 21:00 (Senokot) 17.2 mg DAILY PO 05/08/16 09:00 (Geodon) 80 mg BID PO 05/07/16 21:00 (Depakote Er) 500 mg BID PO 05/07/16 13:00 (PROzac) 20 mg HS PO 05/07/16 21:00 (Lopressor) 12.5 mg Q12HR PO 05/07/16 21:00 (Pepcid) 20 mg DAILY PO 05/08/16 09:00 (Geodon) 20 mg BID PO 05/07/16 21:00 A/P Assessment and Plan Left femoral neck fracture The patient sustained a mechanical fall with a resultant left femoral neck fracture. Orthopedic surgery consult appreciated. Per the revised cardiac risk index the patient is at increased risk secondary to elevated creatinine requiring hemodialysis and recent positive stress test. The patient is also on insulin, however, that is a sliding scale dose and the patient is not dependent on it. With that in mind the patient is a moderate risk for a moderate risk procedure. - Pain control with a bowel regimen. - Physical therapy following surgery. - Anticoagulation per orthopedic surgery. - Surgery on hold as pt has questionable vegetation on mitral valve and critical aortic stenosis. Heart murmur/ CAD Last echocardiogram in our system was in 2008 and had no acute abnormality. He recently had a mildly positive stress test which was medically managed by cardiology. The patient has no complaint of chest pain or shortness of breath at this time. Echocardiogram revealed critical , questionable vegetation on mitral valve. Cardiology consult appreciated. - DAISY pending. - ID consult pending. - follow blood cultures. - follow up with cardiology. Anemia Possibly s/t ESRD. Hemoglobin stable compared to prior results. Has been vomiting, appears coffee ground. - follow CBC and transfuse as needed. - ASA on hold. - Gastroccult vomitus. GI consult if positive. - PPI. ESRD S/t DM. On HD. Nephrology consult appreciated. - dialysis per nephrology. Schizophrenia/ Seizure disorder The pt is on Geodon, fluoxetine and divalproex as an outpt. Mood is stable at this time. - continue home meds. DM The pt is on an insulin sliding scale as an outpt. A1c is 5.8%. - insulin sliding scale. PPx: SCDs. Discharge Planning Awaiting further evaluation. Ernst Ortega DO May 08, 2016 12:56
[2016-05-08] MEDS ORDERED: MISCELLANEOUS NURSING INFORMATION XX PRN (14:15)
--- NOTE | 2016-05-08 14:43 | ETE ---
Study Study Date:05/08/2016 STUDY CONCLUSIONS SUMMARY - Left ventricle: The cavity size was normal. Wall thickness was increased in a pattern of mild LVH. Systolic function was normal. The estimated ejection fraction was in the range of 55% to 60%. Wall motion was normal; there were no regional wall motion abnormalities. - Aortic valve: No evidence of vegetation. Transvalvular velocity was increased. There was critical stenosis. Trace regurgitation. - Aorta: There was ulcerated atheromatous plaque in the mid descending aorta, with mobile associated thrombus. - Mitral valve: Moderately to severely calcified annulus. Leaflet separation was mildly reduced. Flail motion involving the posterior leaflet due to rupture of one or more chords. Cannot exclude vegetation although the appearance is more consistent with sclerotic valve with flail posterior leafletinvolving thesubvalvular mitral apparatus. Transvalvular velocity was increased. The findings are consistent with mild to moderate stenosis. Moderate to severe regurgitation. - Left atrium: The atrium was mildly dilated. No evidence of thrombus in the atrial cavity or appendage. - Right atrium: No evidence of thrombus in the atrial cavity or appendage. - Tricuspid valve: No evidence of vegetation. - Pulmonic valve: No evidence of vegetation. If LV function is below 40, please consider prescribing an ACEI or ARB or document rationale for non-use. PROCEDURE DATA Consent: The risks, benefits, and alternatives to the procedure were explained to the patient and informed consent was obtained. Procedure: Initial setup. The patient was brought to the laboratory in the fasting state. Intravenous access was obtained. Surface ECG leads and pulse oximetric signals were monitored. Sedation. Conscious sedation was administered by cardiology staff. Transesophageal echocardiography. Topical anesthesia was obtained using viscous lidocaine. A transesophageal probe was inserted by the attending surveillance sensor officer. Image quality was good. Study completion: All IVs inserted during the procedure were removed. The patient tolerated the procedure well. There were no complications. Transesophageal echocardiography. 2D, complete spectral Doppler, and color Doppler. CARDIAC ANATOMY LEFT VENTRICLE: The cavity size was normal. Wall thickness was increased in a pattern of mild LVH. Systolic function was normal. The estimated ejection fraction was in the range of 55% to 60%. Wall motion was normal; there were no regional wall motion abnormalities. AORTIC VALVE: Trileaflet; moderately thickened, severely calcified leaflets. Cusp separation was normal. No evidence of vegetation. Doppler: Transvalvular velocity was increased. There was critical stenosis. Trace regurgitation. Aorta: - There was ulcerated atheromatous plaque in the mid descending aorta, with mobile associated thrombus. There was no evidence for dissection. Aortic root: The aortic root was not dilated. Ascending aorta: The ascending aorta was normal in size. Aortic arch: The aortic arch was normal in size. Descending aorta: The descending aorta was normal in size. MITRAL VALVE: Moderately to severely calcified annulus. Leaflet separation was mildly reduced. Flail motion involving the posterior leaflet due to rupture of one or more chords. Cannot exclude vegetation although the appearance is more consistent with sclerotic valve with flail posterior leaflet involving the subvalvular mitral apparatus. Doppler: Transvalvular velocity was increased. The findings are consistent with mild to moderate stenosis. Moderate to severe regurgitation. LEFT ATRIUM: The atrium was mildly dilated. No evidence of thrombus in the atrial cavity or appendage. The appendage was morphologically a left appendage, multilobulated, and of normal size. Emptying velocity was normal. RIGHT VENTRICLE: The cavity size was normal. Wall thickness was normal. Systolic function was normal. PULMONIC VALVE: Structurally normal valve. No evidence of vegetation. TRICUSPID VALVE: Structurally normal valve. Leaflet separation was normal. No evidence of vegetation. Doppler: Trace regurgitation. PULMONARY ARTERY: The main pulmonary artery was normal-sized. RIGHT ATRIUM: The atrium was normal in size. No evidence of thrombus in the atrial cavity or appendage. The appendage was morphologically a right appendage. PERICARDIUM: There was no pericardial effusion. Prepared and signed by Nash Garcia [id number]
--- NOTE | 2016-05-08 15:26 | PD.ID.CON ---
History of Present Illness Service ID Consult Requested By Reason for Consult Evaluation and Mment of possible endocarditis. Primary Care Physician Felix Antony MD Diagnoses: History of Present Illness Ms. Herron is a 55 y/o CM with PMHx of ESRD on HD on , Sat sees Dr. Felix Antony. Patient reported to me that Dr.Danny Antony performed a procedure recently. I called and d.w , the angioplasty for Left AV fistula was in Mar. also informs me that patient always has chronic bruising and poor hygiene. Patient reports he did not have any infections and was not on antibiotics before or after this period. Patient denies any fever, chills or night sweats. Patient also has a history of CAD, DM, HTN, Schizophrenia and Depression. He reports he had a fall when he tripped on his extra long socks and reportedly fell on his left side. He said he had a severe pain located around his left hip which radiated down his left leg. He stated that the pain went up to 8 out of 10 in severity. The patient says he has been ambulating without a walker or a cane. He says at the moment he is unable to move his left leg. He says he has been eating well. Upon review of ED MD note it appears he is a resident of [facility]. He experienced a mechanical slip and fall landing on the left hip. An x-ray there revealed a femoral head fracture. Patient complains of constant left hip pain. Patient was evaluated by Dr.Denard Mckeon and also cardiology. Patient underwent a 2D ECHO which showed ? mitral vegetation. He underwent a DAISY which shows Mitral stenosis with ? posterior leaflet vegetation vs flail valve from calcification. ID is consulted for evaluation of possible mitral valve endocarditis. Review of Systems ROS Limitations: Poor Historian Constitutional: DENIES: Diaphoretic episodes, Fatigue, Fever, Weight gain, Weight loss, Chills, Dizziness, Change in appetite, Night Sweats Endocrine: DENIES: Heat/cold intolerance, Polydipsia, Polyuria, Polyphagia Eyes: DENIES: Blurred vision, Diplopia, Eye inflammation, Eye pain, Vision loss , Photosensitivity, Double Vision Ears, nose, mouth, throat: DENIES: Tinnitus, Hearing loss, Vertigo, Nasal discharge, Oral lesions, Throat pain, Hoarseness, Ear Pain, Running Nose, Epistaxis, Sinus Pain, Toothache, Odynophagia Respiratory: DENIES: Apneas, Cough, Snoring, Wheezing, Hemoptysis, Sputum production, Shortness of breath Cardiovascular: DENIES: Chest pain, Palpitations, Syncope, Dyspnea on Exertion , PND, Lower Extremity Edema, Orthopnea, Claudication Gastrointestinal: DENIES: Abdominal pain, Black stools, Bloody stools, Constipation, Diarrhea, Nausea, Vomiting, Difficulty Swallowing, Anorexia Genitourinary: DENIES: Sexual dysfunction, Urinary frequency, Urinary incontinence, Urgency, Hematuria, Dysuria, Nocturia, Penile Discharge, Testicular Pain, Testicular Swelling Musculoskeletal: COMPLAINS OF: Joint pain Integumentary: COMPLAINS OF: Abnormal pigmentation, DENIES: Nail changes, Pruritus, Rash Hematologic/lymphatic: COMPLAINS OF: Bruising Neurologic: COMPLAINS OF: Poor Balance, DENIES: Abnormal gait, Headache, Localized weakness, Paresthesias, Seizures, Speech Problems, Tremor Psychiatric: COMPLAINS OF: Depression Past Family Social History Allergies: Coded Allergies: Vee (Verified Adverse Reaction, Unknown, PT DENIES ALLERGY, 05/07/16) Pt denies allergy Past Medical History ESRD on HD , , Fri Seizure disorder Reza's esophagus Diabetes mellitus Schizophrenia Depression Skin cancers CAD HTN Past Surgical History Left upper extremity AV graft EGD Skin cancer removal from the forehead AV fistula atherectomy in Mar 2016. Reported Medications Reported Meds & Active Scripts Active Renvela (Sevelamer Carbonate) 800 Mg Tab 800 Mg PO TIDAC 30 Days Metoprolol Tartrate 25 Mg Tab 12.5 Mg PO Q12HR 30 Days Reported Zantac 75 (Ranitidine HCl) 75 Mg Tab 75 Mg PO DAILY Take 30 to 60 minutes before eating food or drinking beverages that cause heartburn. Prozac (Fluoxetine HCl) 20 Mg Cap 20 Mg PO HS Ibuprofen 200 Mg Tab 200 Mg PO Q6H PRN Geodon (Ziprasidone) 80 Mg Cap 80 Mg PO BID Take 1 capsule (80mg) with 20mg capsule for a total dose of 100mg Aracely-Annelise (B-Complex W/ C & Folic Acid) 1 Tab 1 Tab PO DAILY Depakote ER (Divalproex Sodium) 500 Mg Prema 500 Mg PO BID Novolog Inj (Insulin Aspart) 1,000 Unit/10 Ml Vial 0 SQ DIRECTED Sliding Scale as directed. Tums (Calcium Carbonate (Antacid)) 500 Mg Chew 500 Mg PO TIDPC PRN Aspirin 81 Mg Tabdr 81 Mg PO DAILY Tylenol (Acetaminophen) 325 Mg Tab 650 Mg PO Q6H PRN Active Ordered Medications Current Medications Medications (Trade) Dose Ordered Sig/Diane Route Start Time Stop Time Status Last Admin (NS Flush) 2 ml UNSCH PRN IVF 05/07/16 02:30 (Tylenol) 650 mg Q4H PRN PO 05/07/16 03:45 (Zofran Inj) 4 mg Q6H PRN IVP 05/07/16 03:45 05/08/16 05:26 (Milk Of Magnesia Liq) 30 ml Q12H PRN PO 05/07/16 03:45 (Tylenol) 650 mg Q6H PRN PO 05/07/16 03:45 (Dilaudid Pf Inj) 0.5 mg Q3H PRN IV 05/07/16 03:45 05/08/16 12:42 Naloxone HCl 0.4 mg 0.4 mg UNSCH PRN IV 05/07/16 03:45 (NS 1000 ml Inj) 1,000 ml @ 0 mls/hr Q0M PRN IV 05/07/16 09:06 Heparin Sodium (Porcine) 8000 units 8,000 units UNSCH PRN IVF 05/07/16 09:15 Sodium Chloride 1,000 ml @ 200 mls/hr Q5H PRN IV 05/07/16 09:06 (NS 1000 ml Inj) 1,000 ml @ 0 mls/hr Q0M PRN IV 05/07/16 09:06 (Mannitol Inj) 12.5 gm UNSCH PRN IV 05/07/16 09:15 (Albumin 25% Inj) 25 gm UNSCH PRN IV 05/07/16 09:15 (NS Flush) 5 ml UNSCH PRN IVF 05/07/16 09:15 (Heparin Inj) UNSCH PRN .XX 05/07/16 09:15 (Gentamicin (Dialysis) Inj) 20 mg UNSCH PRN IV 05/07/16 09:15 (Zofran Inj) 4 mg UNSCH PRN IV 05/07/16 09:15 05/07/16 22:47 (Tylenol) 650 mg UNSCH PRN PO 05/07/16 09:15 (Benadryl) 25 mg UNSCH PRN PO 05/07/16 09:15 (Nitrostat Sl) 0.4 mg UNSCH PRN SL 05/07/16 09:15 (Catapres) 0.1 mg UNSCH PRN PO 05/07/16 09:15 (Epogen Inj) 10,000 units UNSCH PRN IV 05/07/16 09:15 05/07/16 17:04 (Gelfoam 12 Mm/7 Mm Top) 1 foam UNSCH PRN TOP 05/07/16 09:15 (Roxicodone) 10 mg Q4H PRN PO 05/07/16 12:00 (Roxicodone) 5 mg Q4H PRN PO 05/07/16 12:00 05/07/16 15:57 (Colace) 100 mg BID PO 05/07/16 21:00 (Senokot) 17.2 mg DAILY PO 05/08/16 09:00 (Geodon) 80 mg BID PO 05/07/16 21:00 (Depakote Er) 500 mg BID PO 05/07/16 13:00 (PROzac) 20 mg HS PO 05/07/16 21:00 (Lopressor) 12.5 mg Q12HR PO 05/07/16 21:00 (Geodon) 20 mg BID PO 05/07/16 21:00 (Protonix Inj) 40 mg Q24H IV PUSH 05/08/16 13:00 Miscellaneous Information 1 UNSCH PRN XX 05/08/16 14:15 05/11/16 14:14 Sevelamer Carbonate 1600 mg 1,600 mg TIDAC PO 05/08/16 17:00 (Rocephin Inj/NS Inj) 100 ml @ 200 mls/hr Q24H IV 05/08/16 16:00 Family History could not be obtained as patient unable to talk much s/p procedure as his throat was hurting. Social History No alcohol, no smoking No IV drug abuse. Lives with his mother, step father as well as brother. He reports that his brother is his power of comic book designer. Physical Exam Vital Signs Vital Signs Date Time Temp Pulse Resp B/P Pulse Ox O2 Delivery O2 Flow Rate FiO2 05/08/16 12:50 86 19 118/59 96 3/15/17 05:22 98.7 87 21 157/84 97 05/08/16 00:32 98.4 87 21 117/72 98 05/07/16 20:07 98.8 84 21 126/78 98 05/07/16 17:42 102 19 123/58 96 05/07/16 17:17 Physical Exam GENERAL: Obese, looks older than stated age, in no apparent distress. SKIN: Multiple areas of hypopigmentation which patient reports is from multiple scarring. Also multiple areas of scabbing with abrasions noted. Overall poor hygiene. HEAD: Atraumatic. Normocephalic. No temporal or scalp tenderness. EYES: Pupils equal round and reactive. Extraocular motions intact. No scleral icterus. No injection or drainage. ENT: Nose without bleeding, purulent drainage or septal hematoma. Throat without erythema, tonsillar hypertrophy or exudate. Uvula midline. Airway patent. NECK: Trachea midline. No JVD or lymphadenopathy. Supple, nontender, no meningeal signs. CARDIOVASCULAR: Grade 3/6 crescendo decrescendo murmur. RESPIRATORY: Clear to auscultation. Breath sounds equal bilaterally. No wheezes , rales, or rhonchi. GASTROINTESTINAL: Abdomen soft, non-tender, nondistended. Obese. MUSCULOSKELETAL: Left foot pointing towards to the lateral aspect. Significant pain. Left upper extremity with AV fistula with no evidence of infection. Left upper extremity with multiple areas of bruising and scars with several areas of scabbing noted. NEUROLOGICAL: Awake and alert. Grossly nonfocal. Psych cooperative IV line sites with no evidence of infection. Laboratory Laboratory Tests Test 05/08/16 05/08/16 05/08/16 00:51 06:16 13:50 Hemoglobin 10.0 9.9 Hematocrit 30.6 30.2 White Blood Count 12.6 Red Blood Count 3.39 Mean Corpuscular Volume 89.1 Mean Corpuscular Hemoglobin 29.3 Mean Corpuscular Hemoglobin 32.9 Concent Red Cell Distribution Width 16.6 Platelet Count 217 Mean Platelet Volume 9.1 Neutrophils (%) (Auto) 83.7 Lymphocytes (%) (Auto) 4.0 Monocytes (%) (Auto) 11.9 Eosinophils (%) (Auto) 0.0 Basophils (%) (Auto) 0.4 Neutrophils # (Auto) 10.6 Lymphocytes # (Auto) 0.5 Monocytes # (Auto) 1.5 Eosinophils # (Auto) 0.0 Basophils # (Auto) 0.0 CBC Comment DIFF FINAL Differential Comment Sodium Level 138 Potassium Level 4.5 Chloride Level 94 Carbon Dioxide Level 29.2 Anion Gap 15 Blood Urea Nitrogen 59 Creatinine 7.76 Estimat Glomerular Filtration 7 Rate Random Glucose 167 Calcium Level 9.7 Phosphorus Level 8.1 Urine Color YELLOW Urine Turbidity HAZY Urine pH 8.5 Urine Specific [place] 1.009 Urine Protein 30 Urine Glucose (UA) 150 Urine Ketones TRACE Urine Occult Blood LARGE Urine Nitrite NEG Urine Bilirubin NEG Urine Urobilinogen LESS THAN 2.0 Urine Leukocyte Esterase LARGE Urine RBC 1 Urine WBC 3 Urine Squamous Epithelial 2 Cells Urine Bacteria RARE Microscopic Urinalysis Comment CATH-CULTURE IND Date/Time Procedure Status Source Growth 05/08/16 13:50 Urine Culture Received Urine Catheterized Urine Pending 05/08/16 11:03 Aerobic Blood Culture Received Blood Peripheral Pending 05/08/16 11:03 Anaerobic Blood Culture Received Blood Peripheral Pending Result Diagram: 05/08/1616 05/08/16615 Imaging Last Impressions Hip and Pelvis X-Ray 05/07/16220 Signed Impressions: Service Date/Time: Saturday, May 07, 2016 02:46 - CONCLUSION: Left femoral neck fracture. Rayo Cespedes MD Chest X-Ray 05/07/16220 Signed Impressions: Service Date/Time: Saturday, May 07, 2016 02:46 - CONCLUSION: 1. Atelectasis versus mild consolidation in the left midlung. 2. Mild chronic cardiac silhouette enlargement. Rayo Cespedes MD Assessment and Plan Assessment and Plan Possible Endocarditis vs Sclerotic mitral valve. ESRD on HD with AV fistula. Recent angioplasty at the Left AV fistula site. imani Garcia. No infections outpatient. Not on antibiotics prior to admission CAD (patient reports no murmur before, Last ECHO in 2008 with no valve issues, last clinical exam in feb 2016 with no mention of murmur) New murmur New mitral stenosis with calcification and ?flail posterior leaflet vs vegetation. Atheromatous mobile plaque. At risk for infections in general but also due to AV fistula access 3 times a week. Recs Continue Ceftriaxone IV for now. Check procalcitonin check CRP. Reviewed ECHO and DAISY and compared with prior cardiac exams and ECHO in 2009. Murmur and valve findings are new. Given his ESRD AV fistula access would like to rule out infectious processes. Follow cultures Follow clinically Will imani Torres. Marianela Hahn MD May 08, 2016 15:26
[2016-05-08 15:31] VITALS: BP 112/67; PULSE 55; RESP 19; TEMP 98.4; O2SAT 96
[2016-05-08] MEDS ORDERED: cefTRIAXone INJ 1,000 MG in SODIUM CHLORIDE 0.9% INJ 100 ML IV SCH (16:00)
[2016-05-08] MEDS: PANTOPRAZOLE SODIUM 40 MG VIAL IV PUSH SCH (16:43)
[2016-05-08] MEDS: cefTRIAXone INJ 2,000 MG in SODIUM CHLORIDE 0.9% INJ 100 ML IV SCH (16:43)
[2016-05-08] MEDS: FLUoxetine HCL 20 MG CAP PO SCH (20:42)
[2016-05-08 22:26] VITALS: BP 116/58; PULSE 87; RESP 18; TEMP 98.7; O2SAT 97
[2016-05-08 23:35] VITALS: BP 123/60; PULSE 105; RESP 18; TEMP 99.1; O2SAT 96
[2016-05-09] MEDS: ONDANSETRON HCL 4 MG/2 ML VIAL IVP PRN (00:04)
[2016-05-09] MEDS: HYDROmorphone HCL PF 1 MG/ML VIAL IV PRN ×5 (00:56→21:36)
[2016-05-09 04:05] VITALS: BP 118/85; PULSE 95; RESP 18; TEMP 98.7; O2SAT 95
[2016-05-09 07:05] LABS: HEMATOCRIT 30.1 % (39.0-51.0); MEAN CELL VOLUME 88.9 FL (80.0-100.0); MEAN CORPUSCULAR HEMOGLOBIN 29.4 PG (27.0-34.0); MEAN CORPUSCULAR HGB CONC 33.1 % (32.0-36.0); PLATELET COUNT 230 TH/MM3 (150-450); RED BLOOD COUNT 3.38 MIL/MM3 (4.50-5.90); REVIEW FLAG FINAL; WHITE BLOOD COUNT 11.9 TH/MM3 (4.0-11.0)
[2016-05-09 07:29] LABS: BICARBONATE 26.4 MEQ/L (21.0-32.0); MAGNESIUM 2.2 MG/DL (1.5-2.5); POTASSIUM 4.6 MEQ/L (3.5-5.1)
[2016-05-09 08:00] VITALS: BP 128/80; PULSE 101; RESP 18; TEMP 97.9; O2SAT 94
[2016-05-09] MEDS: SEVELAMER CARBONATE 800 MG TAB PO SCH ×3 (08:00→18:08)
[2016-05-09] MEDS: INSULIN ASPART SUPPLEMENTAL SCALE SQ SCH ×4 (08:05→21:00)
--- NOTE | 2016-05-09 08:54 | HHI.NPPN ---
Subjective General Problems: Anemia Renal Failure: Chronic, End Stage Renal Disease Interval History patient was seen and examined. All the notes were reviewed. Concerns regarding critical , possible mitral valve vegetation noted. To have HD today. On Ceftriaxone for the time being. ID following. Review of Systems General Constitutional: Fatigue Musculoskeletal MS: Pain/Stiffness Objective Data Data 05/08/16 05/09/16 19:00 07:00 Intake Total 240 ml Output Total 450 ml Balance -210 ml Intake Oral 240 ml Output Urine Total 450 ml # Bowel Movements 0 Vital Signs Date Time Temp Pulse Resp B/P Pulse Ox O2 Delivery O2 Flow Rate FiO2 05/09/16 04:05 98.7 95 18 118/85 95 05/08/16 23:35 99.1 105 18 123/60 96 05/08/16 22:26 98.7 87 18 116/58 97 05/08/16 15:31 98.4 55 19 112/67 96 05/08/16 12:50 86 19 118/59 96 -: 05/09/16 0608 05/09/16 0608 Microbiology 05/08/16 Aerobic Blood Culture, Received Pending 05/08/16 Anaerobic Blood Culture, Received Pending 05/08/16 Aerobic Blood Culture, Received Pending 05/08/16 Anaerobic Blood Culture, Received Pending Physical Exam General Appearance: Well Developed, Well Nourished, No Acute Distress, Comfortable, Sleeping Throat Throat Exam: Oral Mucosa Rhine & Moist Pulmonary Resp Exam: Clear Bilaterally, Breath Sounds Equal Cardiology CV Exam: Normal Sinus Rhythm, Murmur Gastrointestinal/Abdomen GI Exam: Soft, Non-Tender, Bowel Sounds Present Musculoskeletal MS Exam: Joints Intact, Normal Tone Integumentary Skin Exam: Warm, Dry Extremeties Extremities Exam: No Edema, Pedal Pulses Palpable Neurologic Neuro Exam: Awake, Oriented, Speech Clear, Moving All Extremities Psychiatric Psych Exam: Appropriate Responses Assessment/Plan Discussed Condition With: Patient Assessment Summary: Anemia of CKD, Hypertension, End Stage Renal Disease Problem List: (1) ESRD (end stage renal disease) Plan: We will continue HD TTS. Continue Renvela for metabolic bone disorder, dosage increased to 1600 mg TID with meals. Historically, patient has been non compliant with diet and medications, at least partially due to his bipolar illness. Needs to be on high protein diet. (2) Hypertension Plan: continue home medications. Monitor. (3) Anemia Plan: epogen with HD (4) Femoral neck fracture Plan: Seen by Orthopedics. Surgery on hold at this point due to cardiac issues including possible endocarditis. DAISY report reviewed, mitral valve vegetation vs sclerosis with flail valve leaflet. (5) Murmur Plan: Last echocardiogram recorded was in 2008, with no acute abnormality. He recently had a mildly positive stress test which was medically managed by cardiology. The patient has no complaint of chest pain or shortness of breath at this time. Echocardiogram revealed critical . Plan His prognosis is guarded at this time. Problem Qualifiers (1) Femoral neck fracture: Qualified Code: S72.002A - Closed fracture of neck of left femur, initial encounter Felix Andersen MD May 09, 2016 08:54
[2016-05-09] MEDS: ZIPRASIDONE HCL 20 MG CAP PO SCH ×2 (09:00→21:00)
[2016-05-09] MEDS: METOPROLOL TARTRATE 25 MG TAB PO SCH ×2 (09:00→21:00)
[2016-05-09] MEDS: DIVALPROEX SODIUM E.R. 500 MG TAB PO SCH ×2 (09:00→21:00)
[2016-05-09] MEDS: SENNOSIDES 8.6 MG TAB PO SCH (09:00)
[2016-05-09] MEDS: DOCUSATE SODIUM 100 MG CAP PO SCH ×2 (09:00→21:00)
[2016-05-09] MEDS: ZIPRASIDONE HCL 80 MG CAP PO SCH ×2 (09:00→21:00)
--- NOTE | 2016-05-09 09:36 | PD.CARD.PN ---
Subjective Subjective Remarks admits to mild substernal chest discomfort, and chronic SOB. no palpitation. Objective Medications Current Medications Medications (Trade) Dose Ordered Sig/Diane Route Start Time Stop Time Status Last Admin (NS Flush) 2 ml UNSCH PRN IVF 05/07/16 02:30 (Tylenol) 650 mg Q4H PRN PO 05/07/16 03:45 (Zofran Inj) 4 mg Q6H PRN IVP 05/07/16 03:45 05/09/16 00:04 (Milk Of Magnesia Liq) 30 ml Q12H PRN PO 05/07/16 03:45 (Tylenol) 650 mg Q6H PRN PO 05/07/16 03:45 (Dilaudid Pf Inj) 0.5 mg Q3H PRN IV 05/07/16 03:45 05/09/16 00:56 Naloxone HCl 0.4 mg 0.4 mg UNSCH PRN IV 05/07/16 03:45 (NS 1000 ml Inj) 1,000 ml @ 0 mls/hr Q0M PRN IV 05/07/16 09:06 Heparin Sodium (Porcine) 8000 units 8,000 units UNSCH PRN IVF 05/07/16 09:15 Sodium Chloride 1,000 ml @ 200 mls/hr Q5H PRN IV 05/07/16 09:06 (NS 1000 ml Inj) 1,000 ml @ 0 mls/hr Q0M PRN IV 05/07/16 09:06 (Mannitol Inj) 12.5 gm UNSCH PRN IV 05/07/16 09:15 (Albumin 25% Inj) 25 gm UNSCH PRN IV 05/07/16 09:15 (NS Flush) 5 ml UNSCH PRN IVF 05/07/16 09:15 (Heparin Inj) UNSCH PRN .XX 05/07/16 09:15 (Gentamicin (Dialysis) Inj) 20 mg UNSCH PRN IV 05/07/16 09:15 (Zofran Inj) 4 mg UNSCH PRN IV 05/07/16 09:15 05/07/16 22:47 (Tylenol) 650 mg UNSCH PRN PO 05/07/16 09:15 (Benadryl) 25 mg UNSCH PRN PO 05/07/16 09:15 (Nitrostat Sl) 0.4 mg UNSCH PRN SL 05/07/16 09:15 (Catapres) 0.1 mg UNSCH PRN PO 05/07/16 09:15 (Epogen Inj) 10,000 units UNSCH PRN IV 05/07/16 09:15 05/07/16 17:04 (Gelfoam 12 Mm/7 Mm Top) 1 foam UNSCH PRN TOP 05/07/16 09:15 (Roxicodone) 10 mg Q4H PRN PO 05/07/16 12:00 (Roxicodone) 5 mg Q4H PRN PO 05/07/16 12:00 05/07/16 15:57 (Colace) 100 mg BID PO 05/07/16 21:00 (Senokot) 17.2 mg DAILY PO 05/08/16 09:00 (Geodon) 80 mg BID PO 05/07/16 21:00 (Depakote Er) 500 mg BID PO 05/07/16 13:00 (PROzac) 20 mg HS PO 05/07/16 21:00 (Lopressor) 12.5 mg Q12HR PO 05/07/16 21:00 (Geodon) 20 mg BID PO 05/07/16 21:00 (Protonix Inj) 40 mg Q24H IV PUSH 05/08/16 13:00 05/08/16 16:43 Miscellaneous Information 1 UNSCH PRN XX 05/08/16 14:15 05/11/16 14:14 Sevelamer Carbonate 1600 mg 1,600 mg TIDAC PO 05/08/16 17:00 (Rocephin Inj/NS Inj) 100 ml @ 200 mls/hr Q24H IV 05/08/16 16:00 05/08/16 16:43 Vital Signs / I&O Vital Signs Date Time Temp Pulse Resp B/P Pulse Ox O2 Delivery O2 Flow Rate FiO2 05/09/16 08:00 97.9 101 18 128/80 94 05/09/16 04:05 98.7 95 18 118/85 95 05/08/16 23:35 99.1 105 18 123/60 96 05/08/16 22:26 98.7 87 18 116/58 97 05/08/16 15:31 98.4 55 19 112/67 96 05/08/16 12:50 86 19 118/59 96 I/O 05/08/16 05/08/16 05/08/16 05/09/16 05/09/16 05/09/16 07:00 15:00 23:00 07:00 15:00 23:00 Intake Total 240 ml Output Total 450 ml Balance -210 ml Intake Oral 240 ml Output Urine Total 450 ml # Bowel Movements 0 Physical Exam HEAD: Atraumatic. Normocephalic. EYES: Pupils equal and round. ENT: No nasal bleeding or discharge. t. NECK: Trachea midline. No JVD. CARDIOVASCULAR: Regular rate and rhythm. 3/6 systolic murmur RESPIRATORY: No accessory muscle use. Clear to auscultation. Breath sounds equal bilaterally. GASTROINTESTINAL: Abdomen soft, non-tender, nondistended. MUSCULOSKELETAL: Extremities without clubbing, cyanosis, or edema. NEUROLOGICAL: Awake and alert. No obvious cranial nerve deficits. Normal speech. PSYCHIATRIC: Appropriate mood and affect; insight and judgment normal. Laboratory Laboratory Tests Test 05/08/16 05/09/16 13:50 06:08 Urine Color Urine Turbidity Urine pH Urine Specific [place] Urine Protein mg/dL Urine Glucose (UA) mg/dL Urine Ketones mg/dL Urine Occult Blood Urine Nitrite Urine Bilirubin Urine Urobilinogen MG/DL Urine Leukocyte Esterase Urine RBC /hpf Urine WBC /hpf Urine Squamous Epithelial /hpf Cells Urine Bacteria /hpf Microscopic Urinalysis Comment White Blood Count 11.9 TH/MM3 Red Blood Count 3.38 MIL/MM3 Hemoglobin 9.9 GM/DL Hematocrit 30.1 % Mean Corpuscular Volume 88.9 FL Mean Corpuscular Hemoglobin 29.4 PG Mean Corpuscular Hemoglobin 33.1 % Concent Red Cell Distribution Width 17.0 % Platelet Count 230 TH/MM3 Mean Platelet Volume 9.3 FL Sodium Level 136 MEQ/L Potassium Level 4.6 MEQ/L Chloride Level 92 MEQ/L Carbon Dioxide Level 26.4 MEQ/L Anion Gap 18 MEQ/L Blood Urea Nitrogen 81 MG/DL Creatinine 9.92 MG/DL Estimat Glomerular Filtration 5 ML/MIN Rate Random Glucose 166 MG/DL Calcium Level 10.1 MG/DL Magnesium Level 2.2 MG/DL Imaging Last Impressions Hip and Pelvis X-Ray 05/07/16 0227 Signed Impressions: Service Date/Time: Saturday, May 07, 2016 02:46 - CONCLUSION: Left femoral neck fracture. Rayo Cespedes MD Chest X-Ray 05/07/16 0221 Signed Impressions: Service Date/Time: Saturday, May 07, 2016 02:46 - CONCLUSION: 1. Atelectasis versus mild consolidation in the left midlung. 2. Mild chronic cardiac silhouette enlargement. Rayo Cespedes MD Assessment and Plan Problem List: (1) Hypertension (2) Non-STEMI (non-ST elevated myocardial infarction) Assessment and Plan 55 yo WM with ESRD who incurred a left femoral fracture after fall at home and found to have severe aortic stenosis. DAISY yesterday revealed mitral valve flail motion due to posterior leaflet chord rupture. Cannot rule out vegetation; however blood cultures have been negative at this point. He will require double valve surgery at some point in the near future. He is high surgical risk but will clear him for hip surgery at this point, then will address valve surgery later. If ID feels he does not have active infection he may go forward with hip surgery. Jhoana Cornelius May 09, 2016 09:36
[2016-05-09] MEDS ORDERED: SOD PHOSPHATE/SOD BIPHOSPHATE (ADULT) ENEMA 133ML PR ONE (10:15)
[2016-05-09] MEDS: BISACODYL 10 MG SUPP RECTAL ONE ×2 (10:15→18:09)
--- NOTE | 2016-05-09 10:23 | HHI.PR ---
Subjective Remarks The patient said he had further episodes of vomiting this morning. He says it has been a long time since he had a bowel movement. He said he can't swallow pills as he has had chronic problems with swallowing. Discussed with nursing. Objective Vitals Vital Signs Date Time Temp Pulse Resp B/P Pulse Ox O2 Delivery O2 Flow Rate FiO2 05/09/16 08:00 97.9 101 18 128/80 94 05/09/16 04:05 98.7 95 18 118/85 95 05/08/16 23:35 99.1 105 18 123/60 96 05/08/16 22:26 98.7 87 18 116/58 97 05/08/16 15:31 98.4 55 19 112/67 96 05/08/16 12:50 86 19 118/59 96 I/O 05/08/16 05/08/16 05/08/16 05/09/16 05/09/16 05/09/16 07:00 15:00 23:00 07:00 15:00 23:00 Intake Total 240 ml Output Total 450 ml Balance -210 ml Intake Oral 240 ml Output Urine Total 450 ml # Bowel Movements 0 Result Diagram: 05/09/16 0608 05/09/16 0608 Imaging Last Impressions Hip and Pelvis X-Ray 05/07/16220 Signed Impressions: Service Date/Time: Saturday, May 07, 2016 02:46 - CONCLUSION: Left femoral neck fracture. Rayo Cespedes MD Chest X-Ray 05/07/16220 Signed Impressions: Service Date/Time: Saturday, May 07, 2016 02:46 - CONCLUSION: 1. Atelectasis versus mild consolidation in the left midlung. 2. Mild chronic cardiac silhouette enlargement. Rayo Cespedes MD Objective Remarks GENERAL: No apparent distress, resting comfortably. SKIN: Warm and dry. HEAD: Atraumatic. Normocephalic. EYES: Pupils equal and round. No scleral icterus. No injection or drainage. ENT: No nasal bleeding or discharge. Mucous membranes pink and moist. NECK: Trachea midline. No JVD. CARDIOVASCULAR: Regular rate and rhythm. Harsh systolic murmur appreciated. RESPIRATORY: No accessory muscle use. Clear to auscultation. Breath sounds equal bilaterally. GASTROINTESTINAL: Abdomen soft, non-tender, nondistended. Hepatic and splenic margins not palpable. MUSCULOSKELETAL: Tenderness overlying the region of the left greater trochanter. The left lower extremity is shortened and slightly externally rotated. NEUROLOGICAL: Awake and alert. No obvious cranial nerve deficits. Motor grossly within normal limits. Normal speech. PSYCHIATRIC: Anxious. Procedures DAISY Medications and IVs Current Medications Medications (Trade) Dose Ordered Sig/Diane Route Start Time Stop Time Status Last Admin (NS Flush) 2 ml UNSCH PRN IVF 05/07/16 02:30 (Tylenol) 650 mg Q4H PRN PO 05/07/16 03:45 (Zofran Inj) 4 mg Q6H PRN IVP 05/07/16 03:45 05/09/16 00:04 (Milk Of Magnesia Liq) 30 ml Q12H PRN PO 05/07/16 03:45 (Tylenol) 650 mg Q6H PRN PO 05/07/16 03:45 (Dilaudid Pf Inj) 0.5 mg Q3H PRN IV 05/07/16 03:45 05/09/16 09:57 Naloxone HCl 0.4 mg 0.4 mg UNSCH PRN IV 05/07/16 03:45 (NS 1000 ml Inj) 1,000 ml @ 0 mls/hr Q0M PRN IV 05/07/16 09:06 Heparin Sodium (Porcine) 8000 units 8,000 units UNSCH PRN IVF 05/07/16 09:15 Sodium Chloride 1,000 ml @ 200 mls/hr Q5H PRN IV 05/07/16 09:06 (NS 1000 ml Inj) 1,000 ml @ 0 mls/hr Q0M PRN IV 05/07/16 09:06 (Mannitol Inj) 12.5 gm UNSCH PRN IV 05/07/16 09:15 (Albumin 25% Inj) 25 gm UNSCH PRN IV 05/07/16 09:15 (NS Flush) 5 ml UNSCH PRN IVF 05/07/16 09:15 (Heparin Inj) UNSCH PRN .XX 05/07/16 09:15 (Gentamicin (Dialysis) Inj) 20 mg UNSCH PRN IV 05/07/16 09:15 (Zofran Inj) 4 mg UNSCH PRN IV 05/07/16 09:15 05/07/16 22:47 (Tylenol) 650 mg UNSCH PRN PO 05/07/16 09:15 (Benadryl) 25 mg UNSCH PRN PO 05/07/16 09:15 (Nitrostat Sl) 0.4 mg UNSCH PRN SL 05/07/16 09:15 (Catapres) 0.1 mg UNSCH PRN PO 05/07/16 09:15 (Epogen Inj) 10,000 units UNSCH PRN IV 05/07/16 09:15 05/07/16 17:04 (Gelfoam 12 Mm/7 Mm Top) 1 foam UNSCH PRN TOP 05/07/16 09:15 (Roxicodone) 10 mg Q4H PRN PO 05/07/16 12:00 (Roxicodone) 5 mg Q4H PRN PO 05/07/16 12:00 05/07/16 15:57 (Colace) 100 mg BID PO 05/07/16 21:00 (Senokot) 17.2 mg DAILY PO 05/08/16 09:00 (Geodon) 80 mg BID PO 05/07/16 21:00 (Depakote Er) 500 mg BID PO 05/07/16 13:00 (PROzac) 20 mg HS PO 05/07/16 21:00 (Lopressor) 12.5 mg Q12HR PO 05/07/16 21:00 (Geodon) 20 mg BID PO 05/07/16 21:00 (Protonix Inj) 40 mg Q24H IV PUSH 05/08/16 13:00 05/08/16 16:43 Miscellaneous Information 1 UNSCH PRN XX 05/08/16 14:15 05/11/16 14:14 Sevelamer Carbonate 1600 mg 1,600 mg TIDAC PO 05/08/16 17:00 (Rocephin Inj/NS Inj) 100 ml @ 200 mls/hr Q24H IV 05/08/16 16:00 05/08/16 16:43 A/P Assessment and Plan Left femoral neck fracture The patient sustained a mechanical fall with a resultant left femoral neck fracture. Orthopedic surgery consult appreciated. Per the revised cardiac risk index the patient is at increased risk secondary to elevated creatinine requiring hemodialysis and recent positive stress test. The patient is also on insulin, however, that is a sliding scale dose and the patient is not dependent on it. With that in mind the patient is a moderate risk for a moderate risk procedure. - Pain control with a bowel regimen. - Physical therapy following surgery. - Anticoagulation per orthopedic surgery. - Surgery on hold as pt has questionable vegetation on mitral valve. Awaiting ID clearance. Heart murmur/ CAD Last echocardiogram in our system was in 2008 and had no acute abnormality. He recently had a mildly positive stress test which was medically managed by cardiology. The patient has no complaint of chest pain or shortness of breath at this time. Echocardiogram revealed critical , questionable vegetation on mitral valve. Cardiology consult appreciated. 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 Blood cultures are negative. ID consult appreciated. - follow blood cultures. - follow up with ID and cardiology. The pt will eventually need bivalvular surgery. - continue ceftriaxone. UTI UA indicative of infection but may have been a contaminated specimen. - repeat UA. - continue ceftriaxone. Anemia Possibly s/t ESRD. Hemoglobin stable compared to prior results. Has been vomiting, appears coffee ground. - follow CBC and transfuse as needed. - ASA on hold. - Gastroccult vomitus. - PPI. Dysphagia Apparently a chronic problem. The pt was to get an endoscopy as an outpt. - GI consult requested. - mechanical soft diet for now. - Speech and swallow eval requested. ESRD S/t DM. On HD. Nephrology consult appreciated. - dialysis per nephrology. Schizophrenia/ Seizure disorder The pt is on Geodon, fluoxetine and divalproex as an outpt. Mood is stable at this time. - continue home meds. DM The pt is on an insulin sliding scale as an outpt. A1c is 5.8%. - insulin sliding scale. PPx: SCDs. Discharge Planning Awaiting further evaluation. Ernst Ortega DO May 09, 2016 10:22
[2016-05-09 11:27] VITALS: BP 108/69; PULSE 92; RESP 18; TEMP 98.2; O2SAT 94
[2016-05-09] MEDS: PANTOPRAZOLE SODIUM 40 MG VIAL IV PUSH SCH (13:00)
--- NOTE | 2016-05-09 13:55 | PD.CONS ---
HPI History of Present Illness The patient is a 55-year-old male with a past medical history of Reza s/p Barrx/ablation X 2, end-stage renal disease on HD and diabetes who is here s/p a mechanical fall resulting in left femoral neck fracture. Patient was interviewed during dialysis. GI have been consulted for dysphagia on going for the past week. The food feels stuck and he has to jagdeep it with water, he also having difficulty swallowing pills. He denies nausea, vomiting, abdomen pain, melena or hematochezia. GERD under good control with Protonix (Jeremiah Hector) PFSH Past Medical History ESRD on HD Seizure disorder Reza's esophagus Diabetes mellitus Schizophrenia Past Surgical History Left upper extremity AV graft EGD Barrx/ablation Skin cancer removal from the forehead (Jeremiah Hector) Coded Allergies: Vee (Verified Adverse Reaction, Unknown, PT DENIES ALLERGY, 05/07/16) Pt denies allergy Medications Current Medications Medications (Trade) Dose Ordered Sig/Diane Route Start Time Stop Time Status Last Admin (NS Flush) 2 ml UNSCH PRN IVF 05/07/16 02:30 (Tylenol) 650 mg Q4H PRN PO 05/07/16 03:45 (Zofran Inj) 4 mg Q6H PRN IVP 05/07/16 03:45 05/09/16 00:04 (Milk Of Magnesia Liq) 30 ml Q12H PRN PO 05/07/16 03:45 (Tylenol) 650 mg Q6H PRN PO 05/07/16 03:45 (Dilaudid Pf Inj) 0.5 mg Q3H PRN IV 05/07/16 03:45 05/09/16 09:57 Naloxone HCl 0.4 mg 0.4 mg UNSCH PRN IV 05/07/16 03:45 (NS 1000 ml Inj) 1,000 ml @ 0 mls/hr Q0M PRN IV 05/07/16 09:06 Heparin Sodium (Porcine) 8000 units 8,000 units UNSCH PRN IVF 05/07/16 09:15 Sodium Chloride 1,000 ml @ 200 mls/hr Q5H PRN IV 05/07/16 09:06 (NS 1000 ml Inj) 1,000 ml @ 0 mls/hr Q0M PRN IV 05/07/16 09:06 (Mannitol Inj) 12.5 gm UNSCH PRN IV 05/07/16 09:15 (Albumin 25% Inj) 25 gm UNSCH PRN IV 05/07/16 09:15 (NS Flush) 5 ml UNSCH PRN IVF 05/07/16 09:15 (Heparin Inj) UNSCH PRN .XX 05/07/16 09:15 (Gentamicin (Dialysis) Inj) 20 mg UNSCH PRN IV 05/07/16 09:15 (Zofran Inj) 4 mg UNSCH PRN IV 05/07/16 09:15 05/07/16 22:47 (Tylenol) 650 mg UNSCH PRN PO 05/07/16 09:15 (Benadryl) 25 mg UNSCH PRN PO 05/07/16 09:15 (Nitrostat Sl) 0.4 mg UNSCH PRN SL 05/07/16 09:15 (Catapres) 0.1 mg UNSCH PRN PO 05/07/16 09:15 (Epogen Inj) 10,000 units UNSCH PRN IV 05/07/16 09:15 05/07/16 17:04 (Gelfoam 12 Mm/7 Mm Top) 1 foam UNSCH PRN TOP 05/07/16 09:15 (Roxicodone) 10 mg Q4H PRN PO 05/07/16 12:00 (Roxicodone) 5 mg Q4H PRN PO 05/07/16 12:00 05/07/16 15:57 (Colace) 100 mg BID PO 05/07/16 21:00 (Senokot) 17.2 mg DAILY PO 05/08/16 09:00 (Geodon) 80 mg BID PO 05/07/16 21:00 (Depakote Er) 500 mg BID PO 05/07/16 13:00 (PROzac) 20 mg HS PO 05/07/16 21:00 (Lopressor) 12.5 mg Q12HR PO 05/07/16 21:00 (Geodon) 20 mg BID PO 05/07/16 21:00 (Protonix Inj) 40 mg Q24H IV PUSH 05/08/16 13:00 05/08/16 16:43 Miscellaneous Information 1 UNSCH PRN XX 05/08/16 14:15 3/18/17 14:14 Sevelamer Carbonate 1600 mg 1,600 mg TIDAC PO 05/08/16 17:00 (Rocephin Inj/NS Inj) 100 ml @ 200 mls/hr Q24H IV 05/08/16 16:00 05/08/16 16:43 Family History The patient denies pertinent family history. Social History The patient does not smoke, drink or use illicit substances. (Jeremiah Hector) Review of Systems Constitutional: DENIES: Weight loss, Chills Endocrine: DENIES: Polyuria Eyes: DENIES: Double Vision Ears, nose, mouth, throat: DENIES: Hoarseness Respiratory: DENIES: Shortness of breath Cardiovascular: DENIES: Lower Extremity Edema Gastrointestinal: COMPLAINS OF: Difficulty Swallowing, DENIES: Abdominal pain , Black stools, Bloody stools, Constipation, Diarrhea, Nausea, Vomiting, Anorexia, Odynophagia, Swelling of Abdomen, Heartburn, Hematemesis Genitourinary: DENIES: Hematuria Musculoskeletal: DENIES: Neck pain Integumentary: DENIES: Jaundice Hematologic/lymphatic: DENIES: Bruising Immunologic/allergic: DENIES: Eczema Neurologic: DENIES: Headache Psychiatric: DENIES: Anxiety (Jeremiah Hector) GI Exam Vitals I&O Vital Signs Date Time Temp Pulse Resp B/P Pulse Ox O2 Delivery O2 Flow Rate FiO2 05/09/16 11:27 98.2 92 18 108/69 94 05/09/16 08:00 97.9 101 18 128/80 94 05/09/16 07:25 Room Air 05/09/16 04:05 98.7 95 18 118/85 95 05/08/16 23:35 99.1 105 18 123/60 96 05/08/16 22:26 98.7 87 18 116/58 97 05/08/16 15:31 98.4 55 19 112/67 96 I/O 05/08/16 05/08/16 05/08/16 05/09/16 05/09/16 05/09/16 07:00 15:00 23:00 07:00 15:00 23:00 Intake Total 240 ml Output Total 450 ml Balance -210 ml Intake Oral 240 ml Output Urine Total 450 ml # Bowel Movements 0 Imaging Last Impressions Hip and Pelvis X-Ray 05/07/16220 Signed Impressions: Service Date/Time: Saturday, May 07, 2016 02:46 - CONCLUSION: Left femoral neck fracture. Rayo Cespedes MD Chest X-Ray 05/07/16220 Signed Impressions: Service Date/Time: Saturday, May 07, 2016 02:46 - CONCLUSION: 1. Atelectasis versus mild consolidation in the left midlung. 2. Mild chronic cardiac silhouette enlargement. Rayo Cespedes MD Laboratory Test 05/08/16 05/09/16 13:50 06:08 Urine Color Urine Turbidity Urine pH Urine Specific [place] Urine Protein mg/dL Urine Glucose (UA) mg/dL Urine Ketones mg/dL Urine Occult Blood Urine Nitrite Urine Bilirubin Urine Urobilinogen MG/DL Urine Leukocyte Esterase Urine RBC /hpf Urine WBC /hpf Urine Squamous Epithelial /hpf Cells Urine Bacteria /hpf Microscopic Urinalysis Comment White Blood Count 11.9 TH/MM3 Red Blood Count 3.38 MIL/MM3 Hemoglobin 9.9 GM/DL Hematocrit 30.1 % Mean Corpuscular Volume 88.9 FL Mean Corpuscular Hemoglobin 29.4 PG Mean Corpuscular Hemoglobin 33.1 % Concent Red Cell Distribution Width 17.0 % Platelet Count 230 TH/MM3 Mean Platelet Volume 9.3 FL Sodium Level 136 MEQ/L Potassium Level 4.6 MEQ/L Chloride Level 92 MEQ/L Carbon Dioxide Level 26.4 MEQ/L Anion Gap 18 MEQ/L Blood Urea Nitrogen 81 MG/DL Creatinine 9.92 MG/DL Estimat Glomerular Filtration 5 ML/MIN Rate Random Glucose 166 MG/DL Calcium Level 10.1 MG/DL Magnesium Level 2.2 MG/DL Hepatitis A IgM Antibody NEGATIVE Hepatitis B Surface Antigen NEGATIVE Hepatitis B Core IgM Antibody NEGATIVE Hepatitis C Antibody NEGATIVE HIV (1&2) Antibody NEGATIVE Date/Time Procedure Status Source Growth 05/08/16 13:50 Cancelled Urine Catheterized Urine 05/08/16 11:03 Aerobic Blood Culture - Preliminary Resulted Blood Peripheral NO GROWTH IN 1 DAY 05/08/16 11:03 Anaerobic Blood Culture - Preliminary Resulted Blood Peripheral NO GROWTH IN 1 DAY Physical Examination HEENT: normocephalic; atraumatic; no jaundice. Throat is clear. NECK: Neck is supple, no JVD, no lymphadenopathy. CHEST: Chest is clear to auscultation and percussion. CARDIAC: Regular rate and rhythm with murmur ABDOMEN: Soft, nondistended, obese, nontender; no hepatosplenomegaly; bowel sounds are present in all four quadrants. EXTREMITIES:The left lower extremity is shortened and slightly externally rotated. SKIN: Normal; no rash; no jaundice. 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 (Jeremiah Hector) Assessment and Plan Plan - Dysphagia- GI have been consulted for dysphagia on going for the past week. The food feels stuck and he has to jagdeep it with water, he also having difficulty swallowing pills. He denies nausea, vomiting, abdomen pain, melena or hematochezia. GERD under good control with Protonix - history of Reza s/p Barrx/ablation X 2 in August and November of last year. 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 vegetation can't be ruled out; however blood cultures have been negative at this point. He will require double valve surgery at some point in the near future. - Anemia of chronic dz- no signs of bleeding - End-stage renal disease on HD Tu. Thur. Sat. and diabetes per attending Plan: - will plan for EGD/dill in the am, cleared by cardiology - NPO mn - Cont. PPI - supportive care - Patient seen and examined by Dr. Radford and myself and this note is written on his behalf. (Jeremiah Hector) Physician Comments Seen and examined with [employer] CREWMEMBER, cleared by cardiology/ID for egd/ dilation tomorrow. Continue PPI. Will follow. Thank you (Love Rodriguez MD) Jeremiah Hector May 09, 2016 13:55 Love Rodriguez MD May 09, 2016 14:55
--- NOTE | 2016-05-09 15:15 | HHI.PR ---
Addendum to Inpatient Note Additional Information Attempted to see patient in room and in HD not in room. Continue Ceftriaxone IV Follow blood cultures Noted DAISY findings. I will be OOT from 05/10/16 to 05/17/16 other ID MDs to cover for me. Marianela Hahn MD May 09, 2016 15:15
[2016-05-09] MEDS: EPOETIN ALFA 10,000 UNITS/ML VIAL IV PRN (15:25)
[2016-05-09] MEDS: GELATIN 12 MM/7 MM FOAM TOP PRN (15:26)
[2016-05-09 15:30] VITALS: BP 118/75; PULSE 97; RESP 18; TEMP 97.6; O2SAT 91
[2016-05-09] MEDS: cefTRIAXone INJ 2,000 MG in SODIUM CHLORIDE 0.9% INJ 100 ML IV SCH (18:08)
[2016-05-09 20:00] VITALS: BP 124/77; PULSE 107; RESP 22; TEMP 96.6; O2SAT 96
[2016-05-09] MEDS: FLUoxetine HCL 20 MG CAP PO SCH (21:00)
[2016-05-09 23:57] LABS: BLOOD, URINE NEG (NEG); GLUCOSE,URINE 150 mg/dL (NEG); KETONE, URINE NEG (NEG); NITRITE,URINE NEG (NEG); PH, URINE 8.5 (5.0-8.5); URINE COLOR LIGHT-YELLOW (YELLW/STRAW)
[2016-05-09 23:58] LABS: COMMENT (UR) CULT NOT INDICATED; CULTURE IF INDICATED CULT NOT INDICATED
[2016-05-10] VITALS (7 sets, daily range): BP systolic 102–124; BP diastolic 66–78; PULSE 90–106; RESP 16–22; TEMP 96.3–98.2; O2SAT 93–97
[2016-05-10] MEDS ORDERED: INSULIN HUMAN REGULAR 1,000 UNITS/10 ML VIAL SQ PRN (00:30)
[2016-05-10] MEDS ORDERED: SODIUM CHLORID 0.9% 500 ML IV SCH (00:30)
[2016-05-10] MEDS ORDERED: METOPROLOL TARTRATE 25 MG TAB PO PRN (00:30)
[2016-05-10 05:15] LABS: MEAN CELL VOLUME 89.9 FL (80.0-100.0); MEAN CORPUSCULAR HEMOGLOBIN 28.6 PG (27.0-34.0); MEAN CORPUSCULAR HGB CONC 31.8 % (32.0-36.0); PLATELET COUNT 247 TH/MM3 (150-450); RED BLOOD COUNT 3.67 MIL/MM3 (4.50-5.90); RED CELL DISTRIBUTION WIDTH 16.9 % (11.6-17.2); REVIEW FLAG FINAL; WHITE BLOOD COUNT 10.5 TH/MM3 (4.0-11.0)
[2016-05-10 05:33] LABS: BICARBONATE 28.2 MEQ/L (21.0-32.0); MAGNESIUM 2.1 MG/DL (1.5-2.5); POTASSIUM 4.3 MEQ/L (3.5-5.1)
[2016-05-10] MEDS: INSULIN ASPART SUPPLEMENTAL SCALE SQ SCH ×4 (06:43→19:55)
[2016-05-10] MEDS: HYDROmorphone HCL PF 1 MG/ML VIAL IV PRN (06:43)
[2016-05-10] MEDS ORDERED: PROPOFOL 200 MG/20 ML AMP IV ONE (09:43)
--- NOTE | 2016-05-10 09:54 | GIPROC ---
[facility] [address] [facility]. [facility], [address] EGD PROCEDURE REPORT EXAM DATE: 05/10/2016 PATIENT NAME: Hemal Herron MR #: [id number] BIRTHDATE: 1960 ATTENDING: Love Rodriguez MD ORDER #: [id number] BEAM RACKER: Emmanuel Conrad and Ferny Dominique STATUS: inpatient INDICATIONS: The patient is a 55 yr old male here for an EGD due to history of esophageal reflux, history of Reza's esophagus, and dysphagia PROCEDURE PERFORMED: EGD w/ biopsy MEDICATIONS: None and Per Anesthesia. TOPICAL ANESTHETIC: CONSENT: The patient understands the risks and benefits of the procedure and understands that these risks include, but are not limited to: sedation, allergic reaction, infection, perforation and/or bleeding. Alternative means of evaluation and treatment include, among others: physical exam, x-rays, and/or surgical intervention. The patient elects to proceed with this endoscopic procedure. medical equipment was checked for proper function. Hand hygiene and appropriate measures for infection prevention was taken. After the risks, benefits and alternatives of the procedure were thoroughly explained, Informed consent was verified, confirmed and timeout was successfully executed by the treatment team. The patient was anesthetized with topical anesthesia and the Pentax [id number] and [id number] endoscope was introduced through the mouth and advanced to the second portion of the duodenum. Retroflexed views revealed no abnormalities The gastroscope was then slowly withdrawn and removed. ESOPHAGUS: There was LA Class B esophagitis noted. Multiple biopsies were performed using cold forceps. Sample sent for histology. STOMACH: There was erythematous moderate gastritis in the gastric antrum. DUODENUM: Mild duodenal inflammation was found in the duodenal bulb. ADVERSE EVENTS: There were no complications. IMPRESSIONS: 1. There was LA Class B esophagitis noted; multiple biopsies were performed 2. There was erythematous gastritis in the gastric antrum 3. Duodenal inflammation was found in the duodenal bulb 4. Retroflexed views revealed no abnormalities RECOMMENDATIONS: 1. Await biopsy results. Biopsy results will not be ready for 7-10 days. If you don't hear from us in two weeks, call our office for biopsy results. 2. Anti-reflux regimen 3. Continue PPI PATIENT CONDITION: stable DISPOSITION: Inpatient REPEAT EXAM: Return 1 year EGD pending biopsy results Love Rodriguez MD eSigned: Love Rodriguez MD 05/10/2016 9:53 AM cc: PATIENT NAME: Hemal Herron MR#: [id number]
[2016-05-10] MEDS: DOCUSATE SODIUM 100 MG CAP PO SCH ×2 (10:49→19:54)
[2016-05-10] MEDS: METOPROLOL TARTRATE 25 MG TAB PO SCH ×2 (10:49→19:54)
[2016-05-10] MEDS: SEVELAMER CARBONATE 800 MG TAB PO SCH ×3 (10:49→17:00)
[2016-05-10] MEDS: DIVALPROEX SODIUM E.R. 500 MG TAB PO SCH ×2 (10:49→19:55)
[2016-05-10] MEDS: SENNOSIDES 8.6 MG TAB PO SCH (10:50)
[2016-05-10] MEDS: ZIPRASIDONE HCL 80 MG CAP PO SCH ×2 (10:50→19:54)
[2016-05-10] MEDS: ZIPRASIDONE HCL 20 MG CAP PO SCH ×2 (10:50→19:54)
[2016-05-10] MEDS: LACTULOSE SYRUP 20 GM/30 ML CUP PO SCH (10:55)
--- NOTE | 2016-05-10 11:33 | HHI.PR ---
Subjective Remarks The pt had his EGD this AM. He was feeling well. He said his swallowing was better this AM. He said his pain was controlled. He said he has had a bowel movement. He has not vomited this AM. No acute complaints at this time. Discussed with nursing. Objective Vitals Vital Signs Date Time Temp Pulse Resp B/P Pulse Ox O2 Delivery O2 Flow Rate FiO2 05/10/16 08:45 97.8 101 18 124/70 97 05/10/16 08:00 97.2 90 16 116/69 96 05/10/16 04:00 97.8 101 18 124/70 97 05/10/16 00:00 97.0 100 20 117/78 95 05/09/16 20:00 96.6 107 22 124/77 96 05/09/16 15:30 97.6 97 18 118/75 91 I/O 05/09/16 05/09/16 05/09/16 05/10/16 05/10/16 05/10/16 07:00 15:00 23:00 07:00 15:00 23:00 Intake Total 240 ml 480 ml 150 ml 50 ml Output Total 450 ml 2000 ml 125 ml Balance -210 ml -1520 ml 25 ml 50 ml Intake Oral 240 ml 480 ml 150 ml IV Total 50 ml Output Urine Total 450 ml 125 ml Hemodialysis 2000 ml # Voids 3 2 # Bowel Movements 0 0 0 Result Diagram: 05/10/1630705/10/16307 Imaging Last Impressions Hip and Pelvis X-Ray 05/07/16220 Signed Impressions: Service Date/Time: Saturday, May 07, 2016 02:46 - CONCLUSION: Left femoral neck fracture. Rayo Cespedes MD Chest X-Ray 05/07/16220 Signed Impressions: Service Date/Time: Saturday, May 07, 2016 02:46 - CONCLUSION: 1. Atelectasis versus mild consolidation in the left midlung. 2. Mild chronic cardiac silhouette enlargement. Raoy Cespedes MD Objective Remarks GENERAL: No apparent distress, resting comfortably. SKIN: Warm and dry. HEAD: Atraumatic. Normocephalic. EYES: Pupils equal and round. No scleral icterus. No injection or drainage. ENT: No nasal bleeding or discharge. Mucous membranes pink and moist. NECK: Trachea midline. No JVD. CARDIOVASCULAR: Regular rate and rhythm. Harsh systolic murmur appreciated. RESPIRATORY: No accessory muscle use. Clear to auscultation. Breath sounds equal bilaterally. GASTROINTESTINAL: Abdomen soft, non-tender, nondistended. Hepatic and splenic margins not palpable. MUSCULOSKELETAL: Tenderness overlying the region of the left greater trochanter. NEUROLOGICAL: Awake and alert. No obvious cranial nerve deficits. Motor grossly within normal limits. Normal speech. PSYCHIATRIC: Calm. Procedures DAISY EGD Medications and IVs Current Medications Medications (Trade) Dose Ordered Sig/Diane Route Start Time Stop Time Status Last Admin (NS Flush) 2 ml UNSCH PRN IVF 05/07/16 02:30 (Tylenol) 650 mg Q4H PRN PO 05/07/16 03:45 (Zofran Inj) 4 mg Q6H PRN IVP 05/07/16 03:45 05/09/16 00:04 (Milk Of Magnesia Liq) 30 ml Q12H PRN PO 05/07/16 03:45 (Tylenol) 650 mg Q6H PRN PO 05/07/16 03:45 (Dilaudid Pf Inj) 0.5 mg Q3H PRN IV 05/07/16 03:45 05/10/16 06:43 Naloxone HCl 0.4 mg 0.4 mg UNSCH PRN IV 05/07/16 03:45 (NS 1000 ml Inj) 1,000 ml @ 0 mls/hr Q0M PRN IV 05/07/16 09:06 Heparin Sodium (Porcine) 8000 units 8,000 units UNSCH PRN IVF 05/07/16 09:15 Sodium Chloride 1,000 ml @ 200 mls/hr Q5H PRN IV 05/07/16 09:06 05/09/16 15:25 (NS 1000 ml Inj) 1,000 ml @ 0 mls/hr Q0M PRN IV 05/07/16 09:06 (Mannitol Inj) 12.5 gm UNSCH PRN IV 05/07/16 09:15 (Albumin 25% Inj) 25 gm UNSCH PRN IV 05/07/16 09:15 (NS Flush) 5 ml UNSCH PRN IVF 05/07/16 09:15 (Heparin Inj) UNSCH PRN .XX 05/07/16 09:15 (Gentamicin (Dialysis) Inj) 20 mg UNSCH PRN IV 05/07/16 09:15 (Zofran Inj) 4 mg UNSCH PRN IV 05/07/16 09:15 05/07/16 22:47 (Tylenol) 650 mg UNSCH PRN PO 05/07/16 09:15 (Benadryl) 25 mg UNSCH PRN PO 05/07/16 09:15 (Nitrostat Sl) 0.4 mg UNSCH PRN SL 05/07/16 09:15 (Catapres) 0.1 mg UNSCH PRN PO 05/07/16 09:15 (Epogen Inj) 10,000 units UNSCH PRN IV 05/07/16 09:15 05/09/16 15:25 (Gelfoam 12 Mm/7 Mm Top) 1 foam UNSCH PRN TOP 05/07/16 09:15 05/09/16 15:26 (Roxicodone) 10 mg Q4H PRN PO 05/07/16 12:00 (Roxicodone) 5 mg Q4H PRN PO 05/07/16 12:00 05/07/16 15:57 (Colace) 100 mg BID PO 05/07/16 21:00 05/10/16 10:49 (Senokot) 17.2 mg DAILY PO 05/08/16 09:00 05/10/16 10:50 (Geodon) 80 mg BID PO 05/07/16 21:00 05/10/16 10:50 (Depakote Er) 500 mg BID PO 05/07/16 13:00 05/10/16 10:49 (PROzac) 20 mg HS PO 05/07/16 21:00 (Lopressor) 12.5 mg Q12HR PO 05/07/16 21:00 05/10/16 10:49 (Geodon) 20 mg BID PO 05/07/16 21:00 05/10/16 10:50 (Protonix Inj) 40 mg Q24H IV PUSH 05/08/16 13:00 05/08/16 16:43 Miscellaneous Information 1 UNSCH PRN XX 05/08/16 14:15 05/11/16 14:14 Sevelamer Carbonate 1600 mg 1,600 mg TIDAC PO 05/08/16 17:00 05/10/16 10:49 Ceftriaxone Sodium 2000 mg/ Sodium Chloride 100 ml @ 200 mls/hr Q24H IV 05/08/16 16:00 05/09/16 18:08 Lactated Ringer's 1,000 ml @ 30 mls/hr Q24H IV 05/10/16 00:30 (NS 500 ml Inj) 500 ml @ 30 mls/hr [id number] IV 05/10/16 00:30 05/11/16 00:29 (Lactulose Liq) 30 ml DAILY PO 05/10/16 09:00 05/10/16 10:55 A/P Assessment and Plan Left femoral neck fracture The patient sustained a mechanical fall with a resultant left femoral neck fracture. Orthopedic surgery consult appreciated. Per the revised cardiac risk index the patient is at increased risk secondary to elevated creatinine requiring hemodialysis and recent positive stress test. The patient is also on insulin, however, that is a sliding scale dose and the patient is not dependent on it. With that in mind the patient is a moderate risk for a moderate risk procedure. - Pain control with a bowel regimen. - Physical therapy following surgery. - Anticoagulation per orthopedic surgery. - Surgery on hold as pt has questionable vegetation on mitral valve. Awaiting ID clearance. Heart murmur/ CAD Last echocardiogram in our system was in 2008 and had no acute abnormality. He recently had a mildly positive stress test which was medically managed by cardiology. The patient has no complaint of chest pain or shortness of breath at this time. Echocardiogram revealed critical , questionable vegetation on mitral valve. Cardiology consult appreciated. 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 Blood cultures are negative. ID consult appreciated. - follow blood cultures. NGTD. - follow up with ID and cardiology. The pt will eventually need bivalvular surgery. - continue ceftriaxone. Anemia Possibly s/t ESRD. Hemoglobin stable compared to prior results. - follow CBC and transfuse as needed. - ASA on hold. - PPI. - Epogen per nephrology. Dysphagia Apparently a chronic problem. The pt was to get an endoscopy as an outpt. EGD shows class B esophagitis, erythematous gastritis and inflammation in the duodenal bulb. Dysphagia has improved. - GI following. - mechanical soft diet for now. - Speech and swallow eval requested. ESRD S/t DM. On HD. Nephrology consult appreciated. - dialysis per nephrology. Schizophrenia/ Seizure disorder The pt is on Geodon, fluoxetine and divalproex as an outpt. Mood is stable at this time. - continue home meds. DM The pt is on an insulin sliding scale as an outpt. A1c is 5.8%. Glucose well controlled 05/10. - insulin sliding scale. PPx: Heparin. Discharge Planning Awaiting further evaluation. Ernst Ortega DO May 10, 2016 11:33
--- NOTE | 2016-05-10 12:21 | HHI.NPPN ---
Subjective General Problems: Anemia Renal Failure: Chronic, End Stage Renal Disease Interval History Lying in bed. No acute complaints. He had EGD with dilatation this morning. He had dialysis yesterday. (Zahra Aguilar) Review of Systems General Constitutional: Fatigue (Zahra Aguilar) Musculoskeletal MS: Pain/Stiffness (Zahra Aguilar) Objective Data Data 05/09/16 05/10/16 19:00 07:00 Intake Total 630 ml Output Total 2000 ml 125 ml Balance -2000 ml 505 ml Intake Oral 630 ml Output Urine Total 125 ml Hemodialysis 2000 ml # Voids 5 # Bowel Movements 0 Vital Signs Date Time Temp Pulse Resp B/P Pulse Ox O2 Delivery O2 Flow Rate FiO2 05/10/16 08:45 97.8 101 18 124/70 97 05/10/16 08:00 97.2 90 16 116/69 96 05/10/16 04:00 97.8 101 18 124/70 97 05/10/16 00:00 97.0 100 20 117/78 95 05/09/16 20:00 96.6 107 22 124/77 96 05/09/16 15:30 97.6 97 18 118/75 91 (Zahra Aguilar) -: 05/10/16 0308 05/10/16 0308 Physical Exam General Appearance: Well Developed, Well Nourished, No Acute Distress, Comfortable, Sleeping (Zahra Aguilar) Throat Throat Exam: Oral Mucosa [place] & Moist (Zahra Aguilar) Pulmonary Resp Exam: Clear Bilaterally, Breath Sounds Equal (Zahra Aguilar) Cardiology CV Exam: Normal Sinus Rhythm, Murmur CV Remarks III/ systolic murmur, mitral area, radiates to left axilla (Zahra Aguilar) Gastrointestinal/Abdomen GI Exam: Soft, Non-Tender, Bowel Sounds Present (Zahra Aguilar) Musculoskeletal MS Exam: Joints Intact, Normal Tone (Zahra Aguilar) Integumentary Skin Exam: Warm, Dry (Zahra Aguilar) Extremeties Extremities Exam: No Edema, Pedal Pulses Palpable (Zahra Aguilar) Neurologic Neuro Exam: Awake, Oriented, Speech Clear, Moving All Extremities (Zahra Aguilar) Psychiatric Psych Exam: Appropriate Responses (Zahra Aguilar) Assessment/Plan Discussed Condition With: Patient Assessment Summary: Anemia of CKD, Hypertension, End Stage Renal Disease Problem List: (1) ESRD (end stage renal disease) Plan: We will continue HD TTS. He had 2L UF yesterday Continue Renvela for metabolic bone disorder, dosage increased Historically, patient has been non compliant with diet and medications, at least partially due to his bipolar illness. On high protein diet. electrolytes unremarkable avoid IVF (2) Hypertension Plan: continue home medications. Monitor. (3) Anemia Plan: epogen with HD (4) Femoral neck fracture Plan: Seen by Orthopedics. Surgery on hold at this point due to cardiac issues including possible endocarditis. DAISY report reviewed, mitral valve vegetation vs sclerosis with flail valve leaflet. (5) Murmur Plan: Last echocardiogram recorded was in 2008, with no acute abnormality. He recently had a mildly positive stress test which was medically managed by cardiology. The patient has no complaint of chest pain or shortness of breath at this time. Echocardiogram revealed critical . he will need eventual valve replacement on Rocephin prophylactically he denies hx of rheumatic fever of IVDA Plan His prognosis is guarded at this time. (Zahra Aguilar) Problem List: (1) ESRD (end stage renal disease) Plan: We will continue HD TTS. He had 2L UF yesterday Continue Renvela for metabolic bone disorder, dosage increased Historically, patient has been non compliant with diet and medications, at least partially due to his bipolar illness. On high protein diet. electrolytes unremarkable avoid IVF (2) Hypertension Plan: continue home medications. Monitor. (3) Anemia Plan: epogen with HD (4) Femoral neck fracture Plan: Seen by Orthopedics. Surgery on hold at this point due to cardiac issues including possible endocarditis. DAISY report reviewed, mitral valve vegetation vs sclerosis with flail valve leaflet. (5) Murmur Plan: Last echocardiogram recorded was in 2008, with no acute abnormality. He recently had a mildly positive stress test which was medically managed by cardiology. The patient has no complaint of chest pain or shortness of breath at this time. Echocardiogram revealed critical . he will need eventual valve replacement on Rocephin prophylactically he denies hx of rheumatic fever of IVDA Plan patient was seen and examined. Agree with above assessment and plan. (Felix Andersen MD) Problem Qualifiers (1) Femoral neck fracture: Qualified Code: S72.002A - Closed fracture of neck of left femur, initial encounter Zahra Aguilar May 10, 2016 12:21 Felix Andersen MD May 10, 2016 17:42
[2016-05-10] MEDS: HEPARIN SODIUM - SQ 10,000 UNITS/ML VIAL SQ SCH ×2 (14:01→23:03)
[2016-05-10] MEDS: PANTOPRAZOLE SODIUM 40 MG VIAL IV PUSH SCH (14:01)
[2016-05-10] MEDS: cefTRIAXone INJ 2,000 MG in SODIUM CHLORIDE 0.9% INJ 100 ML IV SCH (16:46)
--- NOTE | 2016-05-10 19:28 | HHI.IDPN ---
Subjective Subjective Remarks Xcover for Dr Selma betancourt reviewed Ms. Herron is a 55 y/o presented with L femoral head fracture. As preop for ortho sx patient underwent a 2D ECHO which showed ? mitral vegetation. He underwent a DAISY which shows Mitral stenosis with ? posterior leaflet vegetation vs flail valve from calcification. ID is consulted for evaluation of possible mitral valve endocarditis. Blood clx remain neg @ 2 days Pt is afebrile no new issues/complaints Antibiotics CFTX Past Medical History ESRD on HD Tu, , Sat Seizure disorder Reza's esophagus Diabetes mellitus Schizophrenia Depression Skin cancers CAD HTN Past Surgical History Left upper extremity AV graft EGD Skin cancer removal from the forehead AV fistula atherectomy in Mar 2016. Allergies: Coded Allergies: Vee (Verified Adverse Reaction, Unknown, PT DENIES ALLERGY, 05/07/16) Pt denies allergy Objective . Vital Signs Date Time Temp Pulse Resp B/P Pulse Ox O2 Delivery O2 Flow Rate FiO2 05/10/16 16:00 96.3 97 18 114/66 93 05/10/16 12:00 98.2 100 17 102/68 96 05/10/16 10:02 90 18 112/67 97 05/10/16 09:57 92 18 102/62 94 05/10/16 09:52 99.4 92 16 102/62 97 05/10/16 08:45 97.8 101 18 124/70 97 05/10/16 08:30 Nasal Cannula 2.00 05/10/16 08:00 97.2 90 16 116/69 96 05/10/16 04:00 97.8 101 18 124/70 97 05/10/16 00:00 97.0 100 20 117/78 95 05/09/16 20:00 96.6 107 22 124/77 96 05/09/16 05/09/16 05/10/16 15:00 23:00 07:00 Intake Total 480 ml 150 ml Output Total 2000 ml 125 ml Balance -1520 ml 25 ml Intake Oral 480 ml 150 ml Output Urine Total 125 ml Hemodialysis 2000 ml # Voids 3 2 # Bowel Movements 0 0 . Laboratory Tests Test 05/09/16 05/10/16 06:08 03:08 White Blood Count 11.9 TH/MM3 10.5 TH/MM3 Red Blood Count 3.38 MIL/MM3 3.67 MIL/MM3 Hemoglobin 9.9 GM/DL 10.5 GM/DL Hematocrit 30.1 % 33.0 % Mean Corpuscular Volume 88.9 FL 89.9 FL Mean Corpuscular Hemoglobin 29.4 PG 28.6 PG Mean Corpuscular Hemoglobin 33.1 % 31.8 % Concent Red Cell Distribution Width 17.0 % 16.9 % Platelet Count 230 TH/MM3 247 TH/MM3 Mean Platelet Volume 9.3 FL 9.4 FL Laboratory Tests Test 05/09/16 05/10/16 06:08 03:08 Sodium Level 136 MEQ/L 136 MEQ/L Potassium Level 4.6 MEQ/L 4.3 MEQ/L Chloride Level 92 MEQ/L 91 MEQ/L Carbon Dioxide Level 26.4 MEQ/L 28.2 MEQ/L Anion Gap 18 MEQ/L 17 MEQ/L Blood Urea Nitrogen 81 MG/DL 62 MG/DL Creatinine 9.92 MG/DL 8.04 MG/DL Estimat Glomerular Filtration 5 ML/MIN 7 ML/MIN Rate Random Glucose 166 MG/DL 140 MG/DL Calcium Level 10.1 MG/DL 10.3 MG/DL Magnesium Level 2.2 MG/DL 2.1 MG/DL Microbiology Date/Time Procedure Status Source Growth 05/08/16 10:57 Aerobic Blood Culture - Preliminary Resulted Blood Peripheral NO GROWTH IN 2 DAYS 05/08/16 10:57 Anaerobic Blood Culture - Preliminary Resulted Blood Peripheral NO GROWTH IN 2 DAYS 05/08/16 11:03 Aerobic Blood Culture - Preliminary Resulted Blood Peripheral NO GROWTH IN 2 DAYS 05/08/16 11:03 Anaerobic Blood Culture - Preliminary Resulted Blood Peripheral NO GROWTH IN 2 DAYS 05/08/16 13:50 Cancelled Urine Catheterized Urine Imaging Last Impressions Hip and Pelvis X-Ray 05/07/16220 Signed Impressions: Service Date/Time: Saturday, May 07, 2016 02:46 - CONCLUSION: Left femoral neck fracture. Rayo Cespedes MD Chest X-Ray 05/07/16220 Signed Impressions: Service Date/Time: Saturday, May 07, 2016 02:46 - CONCLUSION: 1. Atelectasis versus mild consolidation in the left midlung. 2. Mild chronic cardiac silhouette enlargement. Rayo Cespedes MD Physical Exam GENERAL: Obese, looks older than stated age, in no apparent distress. SKIN: Multiple areas of hypopigmentation which patient reports is from multiple scarring. No [place] lesions HEAD: Atraumatic. Normocephalic. No temporal or scalp tenderness. EYES: Pupils equal round and reactive. Extraocular motions intact. No scleral icterus. No injection or drainage. No conjunctival petechia ENT: Nose without bleeding, purulent drainage or septal hematoma. Throat without erythema, tonsillar hypertrophy or exudate. Uvula midline. Airway patent. NECK: Trachea midline. No JVD or lymphadenopathy. Supple, nontender, no meningeal signs. CARDIOVASCULAR: Grade 3/6 crescendo decrescendo murmur. RESPIRATORY: Clear to auscultation. Breath sounds equal bilaterally. No wheezes , rales, or rhonchi. GASTROINTESTINAL: Abdomen soft, non-tender, nondistended. Obese. MUSCULOSKELETAL: Left foot pointing towards to the lateral aspect. Left upper extremity with AV fistula with no evidence of infection. NEUROLOGICAL: Awake and alert. Grossly nonfocal. Psych cooperative IV line sites with no evidence of infection. Assessment & Plan Remarks Possible culture negative Endocarditis vs Sclerotic mitral valve. - DAISY favouring calcification Elevated inflammatory parameters (includfing procalcitonin, CRP) ESRD on HD with AV fistula. Recent angioplasty at the Left AV fistula site. d[place]ow . No infections outpatient. Not on antibiotics prior to admission CAD (patient reports no murmur before, Last ECHO in 2008 with no valve issues, last clinical exam in feb 2016 with no mention of murmur) New murmur New mitral stenosis with calcification and ?flail posterior leaflet vs vegetation. Atheromatous mobile plaque. At risk for infections in general but also due to AV fistula access 3 times a week. Recs Continue Ceftriaxone IV for now. chk Bartonella, Coxiella serologies Nettie Dove MD May 10, 2016 19:28
[2016-05-10] MEDS: FLUoxetine HCL 20 MG CAP PO SCH (19:54)
[2016-05-10] MEDS: LACTATED RINGER'S 1000 ML IV SCH (23:08)
[2016-05-11] VITALS: BP 126/72; PULSE 97; RESP 24; TEMP 98.1; O2SAT 94
[2016-05-11 04:00] VITALS: BP 114/67; PULSE 96; RESP 22; TEMP 97.2; O2SAT 93
[2016-05-11] MEDS: INSULIN ASPART SUPPLEMENTAL SCALE SQ SCH ×4 (07:00→21:00)
[2016-05-11] MEDS: HEPARIN SODIUM - SQ 10,000 UNITS/ML VIAL SQ SCH ×3 (07:10→22:27)
[2016-05-11 08:00] VITALS: BP 101/72; PULSE 94; RESP 19; TEMP 96.7; O2SAT 93
[2016-05-11] MEDS: SEVELAMER CARBONATE 800 MG TAB PO SCH ×3 (08:00→17:40)
--- NOTE | 2016-05-11 08:16 | PD.ORT.PN ---
Subjective Subjective Remarks No complaints. Lying in bed. ID consult reviewed. Patient is not yet cleared for surgery. Medical notes reviewed, they're awaiting clearance by infectious disease before allowing surgical treatment. Objective Vitals Vital Signs Date Time Temp Pulse Resp B/P Pulse Ox O2 Delivery O2 Flow Rate FiO2 05/11/16 04:00 97.2 96 22 114/67 93 05/11/16 00:00 98.1 97 24 126/72 94 05/10/16 20:00 98.1 106 22 115/69 93 05/10/16 16:00 96.3 97 18 114/66 93 05/10/16 12:00 98.2 100 17 102/68 96 05/10/16 10:02 90 18 112/67 97 05/10/16 09:57 92 18 102/62 94 05/10/16 09:52 99.4 92 16 102/62 97 05/10/16 08:45 97.8 101 18 124/70 97 05/10/16 08:30 Nasal Cannula 2.00 I/O 05/10/16 05/10/16 05/10/16 05/11/16 05/11/16 05/11/16 07:00 15:00 23:00 07:00 15:00 23:00 Intake Total 150 ml 650 ml 480 ml 240 ml Output Total 125 ml 600 ml 100 ml Balance 25 ml 50 ml 480 ml 140 ml Intake Oral 150 ml 600 ml 480 ml 240 ml IV Total 50 ml Output Urine Total 125 ml 600 ml 100 ml # Voids 2 1 2 2 # Bowel Movements 0 2 0 0 Result Diagram: 05/10/16 0308 05/10/16 0308 Objective Remarks LLE: grossly nvi. externally rotated. 2+ PT/DP No calf tenderness Negative Stacy sign Pain with range of motion of left leg Assessment & Plan Assessment and Plan Left femoral neck fracture. Insulin-dependent diabetes mellitus. Possible endocarditis. PLAN: Waiting for ID clearance before proceeding forward with surgery. Continue with present care. Please advise when medically stable to consider surgical treatment. Mahamed Honeycutt MD May 11, 2016 08:16
[2016-05-11] MEDS: METOPROLOL TARTRATE 25 MG TAB PO SCH ×2 (09:00→22:26)
[2016-05-11] MEDS: SENNOSIDES 8.6 MG TAB PO SCH (09:00)
[2016-05-11] MEDS: LACTULOSE SYRUP 20 GM/30 ML CUP PO SCH (09:00)
[2016-05-11] MEDS: DOCUSATE SODIUM 100 MG CAP PO SCH ×2 (09:00→22:26)
--- NOTE | 2016-05-11 10:03 | HHI.NPPN ---
Subjective General Problems: Anemia, Hypertension Renal Failure: Chronic, End Stage Renal Disease History of Present Illness Patient is alert, no SOB, has some pain in feet. Review of Systems General Constitutional: Fatigue Musculoskeletal MS: Pain/Stiffness Objective Data Data 05/10/16 05/11/16 19:00 07:00 Intake Total 650 ml 720 ml Output Total 600 ml 100 ml Balance 50 ml 620 ml Intake Oral 600 ml 720 ml IV Total 50 ml Output Urine Total 600 ml 100 ml # Voids 1 4 # Bowel Movements 2 0 Vital Signs Date Time Temp Pulse Resp B/P Pulse Ox O2 Delivery O2 Flow Rate FiO2 05/11/16 04:00 97.2 96 22 114/67 93 05/11/16 00:00 98.1 97 24 126/72 94 05/10/16 20:00 98.1 106 22 115/69 93 05/10/16 16:00 96.3 97 18 114/66 93 05/10/16 12:00 98.2 100 17 102/68 96 05/10/16 10:02 90 18 112/67 97 -: 05/10/16 0308 05/10/16 0308 Physical Exam General Appearance: Well Nourished, No Acute Distress, Comfortable Throat Throat Exam: Oral Mucosa [place] & Moist Pulmonary Resp Exam: Clear Bilaterally, Breath Sounds Equal Cardiology CV Exam: Normal Sinus Rhythm, Murmur Gastrointestinal/Abdomen GI Exam: Soft, Non-Tender, Bowel Sounds Present Musculoskeletal MS Exam: Joints Intact, Normal Tone Integumentary Skin Exam: Warm, Dry Extremeties Extremities Exam: Trace Edema Neurologic Neuro Exam: Alert, Awake, Oriented Psychiatric Psych Exam: Appropriate Responses Assessment/Plan Discussed Condition With: Patient Assessment Summary: Anemia of CKD, Hypertension, End Stage Renal Disease Problem List: (1) ESRD (end stage renal disease) Plan: We will continue HD TTS. Continue Renvela for metabolic bone disorder, dosage increased Historically, patient has been non compliant with diet and medications, at least partially due to his bipolar illness. On high protein diet. electrolytes unremarkable HD now, remove fluid as tolerated. (2) Hypertension Plan: continue home medications. Monitor. (3) Anemia Plan: epogen with HD (4) Femoral neck fracture Plan: Seen by Orthopedics. Surgery on hold at this point due to cardiac issues including possible endocarditis. DAISY report reviewed, mitral valve vegetation vs sclerosis with flail valve leaflet. (5) Murmur Plan: Last echocardiogram recorded was in 2008, with no acute abnormality. He recently had a mildly positive stress test which was medically managed by cardiology. The patient has no complaint of chest pain or shortness of breath at this time. Echocardiogram revealed critical . he will need eventual valve replacement on Rocephin prophylactically he denies hx of rheumatic fever of IVDA Problem Qualifiers (1) Femoral neck fracture: Qualified Code: S72.002A - Closed fracture of neck of left femur, initial encounter Homa Mazariegos MD May 11, 2016 10:03
[2016-05-11] MEDS: GELATIN 12 MM/7 MM FOAM TOP PRN ×2 (10:35→10:36)
[2016-05-11] MEDS: EPOETIN ALFA 10,000 UNITS/ML VIAL IV PRN (10:36)
--- NOTE | 2016-05-11 10:38 | HHI.PR ---
Subjective Remarks The patient was seen at dialysis. He had no acute complaints. He didn't mention his left leg was hurting him. He has been able to swallow without difficulty. Objective Vitals Vital Signs Date Time Temp Pulse Resp B/P Pulse Ox O2 Delivery O2 Flow Rate FiO2 05/11/16 08:00 96.7 94 19 101/72 93 05/11/16 04:00 97.2 96 22 114/67 93 05/11/16 00:00 98.1 97 24 126/72 94 05/10/16 20:00 98.1 106 22 115/69 93 05/10/16 16:00 96.3 97 18 114/66 93 05/10/16 12:00 98.2 100 17 102/68 96 I/O 05/10/16 05/10/16 05/10/16 05/11/16 05/11/16 05/11/16 07:00 15:00 23:00 07:00 15:00 23:00 Intake Total 150 ml 650 ml 480 ml 240 ml Output Total 125 ml 600 ml 100 ml Balance 25 ml 50 ml 480 ml 140 ml Intake Oral 150 ml 600 ml 480 ml 240 ml IV Total 50 ml Output Urine Total 125 ml 600 ml 100 ml # Voids 2 1 2 2 # Bowel Movements 0 2 0 0 Result Diagram: 05/10/1630705/10/16307 Imaging Last Impressions Hip and Pelvis X-Ray 05/07/16220 Signed Impressions: Service Date/Time: Saturday, May 07, 2016 02:46 - CONCLUSION: Left femoral neck fracture. Rayo Cespedes MD Chest X-Ray 05/07/16220 Signed Impressions: Service Date/Time: Saturday, May 07, 2016 02:46 - CONCLUSION: 1. Atelectasis versus mild consolidation in the left midlung. 2. Mild chronic cardiac silhouette enlargement. Rayo Cespedes MD Objective Remarks GENERAL: No apparent distress, resting comfortably. SKIN: Warm and dry. HEAD: Atraumatic. Normocephalic. EYES: Pupils equal and round. No scleral icterus. No injection or drainage. ENT: No nasal bleeding or discharge. Mucous membranes pink and moist. NECK: Trachea midline. No JVD. CARDIOVASCULAR: Regular rate and rhythm. Harsh systolic murmur appreciated. RESPIRATORY: No accessory muscle use. Clear to auscultation. Breath sounds equal bilaterally. GASTROINTESTINAL: Abdomen soft, non-tender, nondistended. Hepatic and splenic margins not palpable. MUSCULOSKELETAL: Tenderness overlying the region of the left greater trochanter. NEUROLOGICAL: Awake and alert. No obvious cranial nerve deficits. Motor grossly within normal limits. Normal speech. PSYCHIATRIC: Calm. Procedures DAISY EGD Medications and IVs Current Medications Medications (Trade) Dose Ordered Sig/Diane Route Start Time Stop Time Status Last Admin (NS Flush) 2 ml UNSCH PRN IVF 05/07/16 02:30 (Tylenol) 650 mg Q4H PRN PO 05/07/16 03:45 (Zofran Inj) 4 mg Q6H PRN IVP 05/07/16 03:45 05/09/16 00:04 (Milk Of Magnodette Liq) 30 ml Q12H PRN PO 05/07/16 03:45 (Tylenol) 650 mg Q6H PRN PO 05/07/16 03:45 (Dilaudid Pf Inj) 0.5 mg Q3H PRN IV 05/07/16 03:45 05/10/16 06:43 Naloxone HCl 0.4 mg 0.4 mg UNSCH PRN IV 05/07/16 03:45 (NS 1000 ml Inj) 1,000 ml @ 0 mls/hr Q0M PRN IV 05/07/16 09:06 Heparin Sodium (Porcine) 8000 units 8,000 units UNSCH PRN IVF 05/07/16 09:15 Sodium Chloride 1,000 ml @ 200 mls/hr Q5H PRN IV 05/07/16 09:06 05/09/16 15:25 (NS 1000 ml Inj) 1,000 ml @ 0 mls/hr Q0M PRN IV 05/07/16 09:06 (Mannitol Inj) 12.5 gm UNSCH PRN IV 05/07/16 09:15 (Albumin 25% Inj) 25 gm UNSCH PRN IV 05/07/16 09:15 (NS Flush) 5 ml UNSCH PRN IVF 05/07/16 09:15 (Heparin Inj) UNSCH PRN .XX 05/07/16 09:15 (Gentamicin (Dialysis) Inj) 20 mg UNSCH PRN IV 05/07/16 09:15 (Zofran Inj) 4 mg UNSCH PRN IV 05/07/16 09:15 05/07/16 22:47 (Tylenol) 650 mg UNSCH PRN PO 05/07/16 09:15 (Benadryl) 25 mg UNSCH PRN PO 05/07/16 09:15 (Nitrostat Sl) 0.4 mg UNSCH PRN SL 05/07/16 09:15 (Catapres) 0.1 mg UNSCH PRN PO 05/07/16 09:15 (Epogen Inj) 10,000 units UNSCH PRN IV 05/07/16 09:15 05/09/16 15:25 (Gelfoam 12 Mm/7 Mm Top) 1 foam UNSCH PRN TOP 05/07/16 09:15 05/09/16 15:26 (Roxicodone) 10 mg Q4H PRN PO 05/07/16 12:00 05/11/16 07:09 (Roxicodone) 5 mg Q4H PRN PO 05/07/16 12:00 05/07/16 15:57 (Colace) 100 mg BID PO 05/07/16 21:00 05/10/16 19:54 (Senokot) 17.2 mg DAILY PO 05/08/16 09:00 05/10/16 10:50 (Geodon) 80 mg BID PO 05/07/16 21:00 05/10/16 19:54 (Depakote Er) 500 mg BID PO 05/07/16 13:00 05/10/16 19:55 (PROzac) 20 mg HS PO 05/07/16 21:00 05/10/16 19:54 (Lopressor) 12.5 mg Q12HR PO 05/07/16 21:00 05/10/16 19:54 (Geodon) 20 mg BID PO 05/07/16 21:00 05/10/16 19:54 (Protonix Inj) 40 mg Q24H IV PUSH 05/08/16 13:00 05/10/16 14:01 Miscellaneous Information 1 UNSCH PRN XX 05/08/16 14:15 05/11/16 14:14 Sevelamer Carbonate 1600 mg 1,600 mg TIDAC PO 05/08/16 17:00 05/10/16 17:00 Ceftriaxone Sodium 2000 mg/ Sodium Chloride 100 ml @ 200 mls/hr Q24H IV 3/15/17 16:00 05/10/16 16:46 (Lr 1000 ml Inj) 1,000 ml @ 30 mls/hr Q24H IV 05/10/16 00:30 (Lactulose Liq) 30 ml DAILY PO 05/10/16 09:00 05/10/16 10:55 (Heparin Inj) 5,000 units Q8HR SQ 05/10/16 14:00 05/11/16 07:10 A/P Assessment and Plan Left femoral neck fracture The patient sustained a mechanical fall with a resultant left femoral neck fracture. Orthopedic surgery consult appreciated. Per the revised cardiac risk index the patient is at increased risk secondary to elevated creatinine requiring hemodialysis and recent positive stress test. The patient is also on insulin, however, that is a sliding scale dose and the patient is not dependent on it. With that in mind the patient is a moderate risk for a moderate risk procedure. - Pain control with a bowel regimen. - Physical therapy following surgery. - Surgery on hold as pt has questionable vegetation on mitral valve. Awaiting ID clearance. Surgery following. Heart murmur/ CAD Last echocardiogram in our system was in 2008 and had no acute abnormality. He recently had a mildly positive stress test which was medically managed by cardiology. The patient has no complaint of chest pain or shortness of breath at this time. Echocardiogram revealed critical , questionable vegetation on mitral valve. Cardiology consult appreciated. 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 Blood cultures are negative. ID consult appreciated. - follow blood cultures. NGTD. - follow up with ID and cardiology. The pt will eventually need bivalvular surgery. - continue ceftriaxone. Anemia Possibly s/t ESRD. Hemoglobin stable compared to prior results. - follow CBC and transfuse as needed. - ASA on hold. - PPI. - Epogen per nephrology. Dysphagia Apparently a chronic problem. The pt was to get an endoscopy as an outpt. EGD shows class B esophagitis, erythematous gastritis and inflammation in the duodenal bulb. Dysphagia has improved. - GI following. - mechanical soft diet for now. - Speech therapy following. ESRD S/t DM. On HD. Nephrology consult appreciated. - dialysis per nephrology. Schizophrenia/ Seizure disorder The pt is on Geodon, fluoxetine and divalproex as an outpt. Mood is stable at this time. - continue home meds. DM The pt is on an insulin sliding scale as an outpt. A1c is 5.8%. Glucose well controlled 05/11. - insulin sliding scale. PPx: Heparin. Discharge Planning Awaiting further evaluation. Ernst Ortega DO May 11, 2016 10:38
[2016-05-11] MEDS: ZIPRASIDONE HCL 20 MG CAP PO SCH ×2 (13:23→22:30)
[2016-05-11] MEDS: ZIPRASIDONE HCL 80 MG CAP PO SCH ×2 (13:23→22:26)
[2016-05-11] MEDS: PANTOPRAZOLE SODIUM 40 MG VIAL IV PUSH SCH (13:24)
[2016-05-11] MEDS: DIVALPROEX SODIUM E.R. 500 MG TAB PO SCH ×2 (13:24→22:26)
[2016-05-11 16:00] VITALS: BP 92/63; PULSE 120; RESP 20; TEMP 99.6; O2SAT 93
--- NOTE | 2016-05-11 16:18 | HHI.GIFU ---
Subjective Remarks Resting in bed. No n/v. States his swallowing has improved. No abdominal pain. Tolerating diet. States his main issue at this point is that he is having trouble getting out of bed. (Karishma Holder) Objective Vitals I&O Vital Signs Date Time Temp Pulse Resp B/P Pulse Ox O2 Delivery O2 Flow Rate FiO2 05/11/16 08:00 96.7 94 19 101/72 93 05/11/16 04:00 97.2 96 22 114/67 93 05/11/16 00:00 98.1 97 24 126/72 94 05/10/16 20:00 98.1 106 22 115/69 93 I/O 05/10/16 05/10/16 05/10/16 05/11/16 05/11/16 05/11/16 07:00 15:00 23:00 07:00 15:00 23:00 Intake Total 150 ml 650 ml 480 ml 240 ml Output Total 125 ml 600 ml 100 ml Balance 25 ml 50 ml 480 ml 140 ml Intake Oral 150 ml 600 ml 480 ml 240 ml IV Total 50 ml Output Urine Total 125 ml 600 ml 100 ml # Voids 2 1 2 2 # Bowel Movements 0 2 0 0 Laboratory Date/Time Procedure Status Source Growth 05/08/16 13:50 Cancelled Urine Catheterized Urine 05/08/16 11:03 Aerobic Blood Culture - Preliminary Resulted Blood Peripheral NO GROWTH IN 3 DAYS 05/08/16 11:03 Anaerobic Blood Culture - Preliminary Resulted Blood Peripheral NO GROWTH IN 3 DAYS Imaging Last Impressions Hip and Pelvis X-Ray 05/07/16220 Signed Impressions: Service Date/Time: Saturday, May 07, 2016 02:46 - CONCLUSION: Left femoral neck fracture. Rayo Cespedes MD Chest X-Ray 05/07/16220 Signed Impressions: Service Date/Time: Saturday, May 07, 2016 02:46 - CONCLUSION: 1. Atelectasis versus mild consolidation in the left midlung. 2. Mild chronic cardiac silhouette enlargement. Rayo Cespedes MD Physical Exam HEENT: Normocephalic; atraumatic; no jaundice. CHEST: CTA, diminished bases CARDIAC: RRR ABDOMEN: Soft, nondistended, nontender; no hepatosplenomegaly; bowel sounds are present in all four quadrants. EXTREMITIES: BLE weakness SKIN: Multiple dry scabs EDUCATION MANAGERS: No focal deficits; alert and oriented times three. (Kraishma Holder) Assessment and Plan Plan ASSESSMENT: - Dysphagia. EGD (05/10/16)----->1. There was LA Class B esophagitis noted; multiple biopsies were performed 2. There was erythematous gastritis in the gastric antrum 3. Duodenal inflammation was found in the duodenal bulb 4. Retroflexed views revealed no abnormalities. Pathology pending. PPI. Tolerating diet. States his swallowing has improved with the PPI. - GERD, Esophagitis, gastritis. Pathology pending. Improved with PPI. - History of Reza s/p Barrx/ablation X 2 in August and November of last year. - S/P mechanical fall resulting in left femoral neck fracture- ortho following. - CAD, Heart murmur per Cardiology - Concern for endocarditis on echo. 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 vegetation can't be ruled out; however blood cultures have been negative at this point. He will require double valve surgery at some point in the near future. Abx per ID. Cardiology following. - Anemia of chronic dz- no signs of bleeding - End-stage renal disease on HD Tues. Thur. Sat. and diabetes per attending Plan: - Renal diet - Await pathology - Cont. PPI - Monitor labs - Supportive care - Repeat EGD in one year - Patient seen and examined by Dr. Hollins and myself and this note is written on his behalf. (Karishma Holder) Physician Comments Patient seen and examined Agree with above Continue with current supportive care Monitor labs Patient follow-up with GI post discharge We will sign off (Niraj Hollins MD) Karishma Holder May 11, 2016 16:18 Niraj Hollins MD May 11, 2016 17:46
[2016-05-11] MEDS: cefTRIAXone INJ 2,000 MG in SODIUM CHLORIDE 0.9% INJ 100 ML IV SCH (17:40)
[2016-05-11 20:00] VITALS: BP 104/65; PULSE 113; RESP 18; TEMP 99.1; O2SAT 95
[2016-05-11] MEDS: FLUoxetine HCL 20 MG CAP PO SCH (22:26)
[2016-05-12] VITALS: BP 84/56; PULSE 96; RESP 20; TEMP 97.4; O2SAT 95
[2016-05-12] MEDS: LACTATED RINGER'S 1000 ML IV SCH (00:01)
[2016-05-12] MEDS: HEPARIN SODIUM - SQ 10,000 UNITS/ML VIAL SQ SCH ×3 (06:14→20:55)
[2016-05-12] MEDS: INSULIN ASPART SUPPLEMENTAL SCALE SQ SCH ×4 (06:14→20:54)
[2016-05-12 06:44] LABS: HEMATOCRIT 31.6 % (39.0-51.0); MEAN CELL VOLUME 89.4 FL (80.0-100.0); MEAN CORPUSCULAR HEMOGLOBIN 29.6 PG (27.0-34.0); MEAN CORPUSCULAR HGB CONC 33.1 % (32.0-36.0); PLATELET COUNT 267 TH/MM3 (150-450); RED BLOOD COUNT 3.54 MIL/MM3 (4.50-5.90); RED CELL DISTRIBUTION WIDTH 17.1 % (11.6-17.2); REVIEW FLAG FINAL; WHITE BLOOD COUNT 9.9 TH/MM3 (4.0-11.0)
[2016-05-12 07:03] LABS: BICARBONATE 26.9 MEQ/L (21.0-32.0); MAGNESIUM 2.3 MG/DL (1.5-2.5)
[2016-05-12 08:00] VITALS: BP_SYST 87; BP_SYST 97; BP_DIAS 53; BP_DIAS 62; PULSE 100; PULSE 93; RESP 16; RESP 18; TEMP 96.7; TEMP 96.9; O2SAT 92; O2SAT 93
[2016-05-12] MEDS: SENNOSIDES 8.6 MG TAB PO SCH (09:00)
[2016-05-12] MEDS: METOPROLOL TARTRATE 25 MG TAB PO SCH ×2 (09:00→20:56)
[2016-05-12] MEDS: LACTULOSE SYRUP 20 GM/30 ML CUP PO SCH (09:00)
--- NOTE | 2016-05-12 09:06 | PD.ORT.PN ---
Subjective Subjective Remarks No complaints. Lying in bed. ID consult and notes reviewed. Patient is not yet cleared for surgery. Medical notes reviewed, they're awaiting clearance by infectious disease before allowing surgical treatment. Objective Vitals Vital Signs Date Time Temp Pulse Resp B/P Pulse Ox O2 Delivery O2 Flow Rate FiO2 05/12/16 00:00 97.4 96 20 84/56 95 05/11/16 20:00 99.1 113 18 104/65 95 05/11/16 16:00 99.6 120 20 92/63 93 I/O 05/11/16 05/11/16 05/11/16 05/12/16 05/12/16 05/12/16 07:00 15:00 23:00 07:00 15:00 23:00 Intake Total 240 ml 960 ml 240 ml 120 ml Output Total 100 ml 50 ml 0 ml Balance 140 ml 960 ml 190 ml 120 ml Intake Oral 240 ml 960 ml 240 ml 120 ml Output Urine Total 100 ml 50 ml 0 ml # Voids 2 1 # Bowel Movements 0 0 0 0 Result Diagram: 05/12/16 0549 05/12/16 0549 Objective Remarks LLE: grossly nvi. externally rotated. 2+ PT/DP No calf tenderness Negative Stacy sign Pain with range of motion of left leg Assessment & Plan Assessment and Plan Left femoral neck fracture. Insulin-dependent diabetes mellitus. Possible endocarditis. Renal failure on hemodialysis PLAN: Waiting for ID clearance before proceeding forward with surgery. Continue with present care. Please advise when medically stable to consider surgical treatment. Mahamed Honeycutt MD May 12, 2016 09:06
[2016-05-12] MEDS: SEVELAMER CARBONATE 800 MG TAB PO SCH ×3 (09:34→17:50)
[2016-05-12] MEDS: DIVALPROEX SODIUM E.R. 500 MG TAB PO SCH ×2 (09:34→20:56)
[2016-05-12] MEDS: DOCUSATE SODIUM 100 MG CAP PO SCH ×2 (09:34→20:55)
[2016-05-12] MEDS: ZIPRASIDONE HCL 20 MG CAP PO SCH ×2 (09:34→20:56)
[2016-05-12] MEDS: ZIPRASIDONE HCL 80 MG CAP PO SCH ×2 (09:34→20:56)
--- NOTE | 2016-05-12 11:18 | HHI.NPPN ---
Subjective General Problems: Anemia, Hypertension Renal Failure: Chronic, End Stage Renal Disease Additional Remarks Patient is alert, no SOB, has some pain in feet, clinically same. Review of Systems General Constitutional: Fatigue Musculoskeletal MS: Pain/Stiffness Objective Data Data 05/11/16 05/12/16 19:00 07:00 Intake Total 960 ml 360 ml Output Total 50 ml Balance 960 ml 310 ml Intake Oral 960 ml 360 ml Output Urine Total 50 ml # Voids 1 # Bowel Movements 0 0 Vital Signs Date Time Temp Pulse Resp B/P Pulse Ox O2 Delivery O2 Flow Rate FiO2 05/12/16 00:00 97.4 96 20 84/56 95 05/11/16 20:00 99.1 113 18 104/65 95 05/11/16 16:00 99.6 120 20 92/63 93 -: 05/12/16 0549 05/12/16 0549 Physical Exam General Appearance: Well Nourished, No Acute Distress, Comfortable Throat Throat Exam: Oral Mucosa Arma & Moist Pulmonary Resp Exam: Clear Bilaterally, Breath Sounds Equal Cardiology CV Exam: Normal Sinus Rhythm, Murmur Gastrointestinal/Abdomen GI Exam: Soft, Non-Tender, Bowel Sounds Present Musculoskeletal MS Exam: Joints Intact, Normal Tone Integumentary Skin Exam: Warm, Dry Extremeties Extremities Exam: Trace Edema Neurologic Neuro Exam: Alert, Awake, Oriented Psychiatric Psych Exam: Appropriate Responses Assessment/Plan Discussed Condition With: Patient Assessment Summary: Anemia of CKD, Hypertension, End Stage Renal Disease Problem List: (1) ESRD (end stage renal disease) Plan: We will continue HD TTS. Continue Renvela for metabolic bone disorder, dosage increased Historically, patient has been non compliant with diet and medications, at least partially due to his bipolar illness. On high protein diet. electrolytes unremarkable HD done yesterday, tolerated well. (2) Hypertension Plan: continue home medications. Monitor. (3) Anemia Plan: epogen with HD (4) Femoral neck fracture Plan: Seen by Orthopedics. Surgery on hold at this point due to cardiac issues including possible endocarditis. DAISY report reviewed, mitral valve vegetation vs sclerosis with flail valve leaflet. (5) Murmur Plan: Last echocardiogram recorded was in 2008, with no acute abnormality. He recently had a mildly positive stress test which was medically managed by cardiology. The patient has no complaint of chest pain or shortness of breath at this time. Echocardiogram revealed critical . he will need eventual valve replacement on Rocephin prophylactically he denies hx of rheumatic fever of IVDA Problem Qualifiers (1) Femoral neck fracture: Qualified Code: S72.002A - Closed fracture of neck of left femur, initial encounter Homa Mazariegos MD May 12, 2016 11:18
[2016-05-12] MEDS: PANTOPRAZOLE SODIUM 40 MG VIAL IV PUSH SCH (12:20)
[2016-05-12 15:30] VITALS: BP 119/68; PULSE 105; RESP 16; TEMP 98; O2SAT 92
[2016-05-12] MEDS: cefTRIAXone INJ 2,000 MG in SODIUM CHLORIDE 0.9% INJ 100 ML IV SCH (16:25)
--- NOTE | 2016-05-12 16:36 | HHI.PR ---
Subjective Remarks The patient says he feels very well today. He is tolerating a diet. His pain is well controlled. He has no acute complaints. Objective Vitals Vital Signs Date Time Temp Pulse Resp B/P Pulse Ox O2 Delivery O2 Flow Rate FiO2 05/12/16 08:00 96.7 93 16 87/53 92 05/12/16 08:00 96.9 100 18 97/62 93 05/12/16 00:00 97.4 96 20 84/56 95 05/11/16 20:00 99.1 113 18 104/65 95 I/O 05/11/16 05/11/16 05/11/16 05/12/16 05/12/16 05/12/16 07:00 15:00 23:00 07:00 15:00 23:00 Intake Total 240 ml 960 ml 240 ml 120 ml Output Total 100 ml 50 ml 0 ml Balance 140 ml 960 ml 190 ml 120 ml Intake Oral 240 ml 960 ml 240 ml 120 ml Output Urine Total 100 ml 50 ml 0 ml # Voids 2 1 # Bowel Movements 0 0 0 0 Result Diagram: 05/12/16 0549 05/12/1649 Imaging Last Impressions Hip and Pelvis X-Ray 05/07/16220 Signed Impressions: Service Date/Time: Saturday, May 07, 2016 02:46 - CONCLUSION: Left femoral neck fracture. Rayo Cespedes MD Chest X-Ray 05/07/16220 Signed Impressions: Service Date/Time: Saturday, May 07, 2016 02:46 - CONCLUSION: 1. Atelectasis versus mild consolidation in the left midlung. 2. Mild chronic cardiac silhouette enlargement. Rayo Cespedes MD Objective Remarks GENERAL: No apparent distress, resting comfortably. SKIN: Warm and dry. HEAD: Atraumatic. Normocephalic. EYES: Pupils equal and round. No scleral icterus. No injection or drainage. ENT: No nasal bleeding or discharge. Mucous membranes pink and moist. NECK: Trachea midline. No JVD. CARDIOVASCULAR: Regular rate and rhythm. Harsh systolic murmur appreciated. RESPIRATORY: No accessory muscle use. Clear to auscultation. Breath sounds equal bilaterally. GASTROINTESTINAL: Abdomen soft, non-tender, nondistended. Hepatic and splenic margins not palpable. MUSCULOSKELETAL: Tenderness overlying the region of the left greater trochanter. NEUROLOGICAL: Awake and alert. No obvious cranial nerve deficits. Motor grossly within normal limits. Normal speech. PSYCHIATRIC: Mood and affect appropriate. Procedures DAISY EGD Medications and IVs Current Medications Medications (Trade) Dose Ordered Sig/Diane Route Start Time Stop Time Status Last Admin (NS Flush) 2 ml UNSCH PRN IVF 05/07/16 02:30 (Tylenol) 650 mg Q4H PRN PO 05/07/16 03:45 (Zofran Inj) 4 mg Q6H PRN IVP 05/07/16 03:45 05/09/16 00:04 (Milk Of Magnesia Liq) 30 ml Q12H PRN PO 05/07/16 03:45 (Tylenol) 650 mg Q6H PRN PO 05/07/16 03:45 (Dilaudid Pf Inj) 0.5 mg Q3H PRN IV 05/07/16 03:45 05/10/16 06:43 Naloxone HCl 0.4 mg 0.4 mg UNSCH PRN IV 05/07/16 03:45 (NS 1000 ml Inj) 1,000 ml @ 0 mls/hr Q0M PRN IV 05/07/16 09:06 Heparin Sodium (Porcine) 8000 units 8,000 units UNSCH PRN IVF 05/07/16 09:15 Sodium Chloride 1,000 ml @ 200 mls/hr Q5H PRN IV 05/07/16 09:06 05/09/16 15:25 (NS 1000 ml Inj) 1,000 ml @ 0 mls/hr Q0M PRN IV 05/07/16 09:06 (Mannitol Inj) 12.5 gm UNSCH PRN IV 05/07/16 09:15 (Albumin 25% Inj) 25 gm UNSCH PRN IV 05/07/16 09:15 (NS Flush) 5 ml UNSCH PRN IVF 05/07/16 09:15 (Heparin Inj) UNSCH PRN .XX 05/07/16 09:15 (Gentamicin (Dialysis) Inj) 20 mg UNSCH PRN IV 05/07/16 09:15 (Zofran Inj) 4 mg UNSCH PRN IV 05/07/16 09:15 05/07/16 22:47 (Tylenol) 650 mg UNSCH PRN PO 05/07/16 09:15 (Benadryl) 25 mg UNSCH PRN PO 05/07/16 09:15 (Nitrostat Sl) 0.4 mg UNSCH PRN SL 05/07/16 09:15 (Catapres) 0.1 mg UNSCH PRN PO 05/07/16 09:15 (Epogen Inj) 10,000 units UNSCH PRN IV 05/07/16 09:15 05/11/16 10:36 (Gelfoam 12 Mm/7 Mm Top) 1 foam UNSCH PRN TOP 05/07/16 09:15 05/11/16 10:36 (Roxicodone) 10 mg Q4H PRN PO 05/07/16 12:00 05/11/16 13:23 (Roxicodone) 5 mg Q4H PRN PO 05/07/16 12:00 05/07/16 15:57 (Colace) 100 mg BID PO 05/07/16 21:00 05/12/16 09:34 (Senokot) 17.2 mg DAILY PO 05/08/16 09:00 05/10/16 10:50 (Geodon) 80 mg BID PO 05/07/16 21:00 05/12/16 09:34 (Depakote Er) 500 mg BID PO 05/07/16 13:00 05/12/16 09:34 (PROzac) 20 mg HS PO 05/07/16 21:00 05/11/16 22:26 (Lopressor) 12.5 mg Q12HR PO 05/07/16 21:00 05/11/16 22:26 (Geodon) 20 mg BID PO 05/07/16 21:00 05/12/16 09:34 (Protonix Inj) 40 mg Q24H IV PUSH 05/08/16 13:00 05/12/16 12:20 Sevelamer Carbonate 1600 mg 1,600 mg TIDAC PO 05/08/16 17:00 05/12/16 12:20 Ceftriaxone Sodium 2000 mg/ Sodium Chloride 100 ml @ 200 mls/hr Q24H IV 05/08/16 16:00 05/11/16 17:40 (Lr 1000 ml Inj) 1,000 ml @ 30 mls/hr Q24H IV 05/10/16 00:30 (Lactulose Liq) 30 ml DAILY PO 05/10/16 09:00 05/10/16 10:55 (Heparin Inj) 5,000 units Q8HR SQ 05/10/16 14:00 05/12/16 12:20 A/P Assessment and Plan Left femoral neck fracture The patient sustained a mechanical fall with a resultant left femoral neck fracture. Orthopedic surgery consult appreciated. Per the revised cardiac risk index the patient is at increased risk secondary to elevated creatinine requiring hemodialysis and recent positive stress test. The patient is also on insulin, however, that is a sliding scale dose and the patient is not dependent on it. With that in mind the patient is a moderate risk for a moderate risk procedure. - Pain control with a bowel regimen. - Physical therapy following surgery. - Surgery on hold as pt has questionable vegetation on mitral valve. Awaiting ID clearance. Surgery following. Heart murmur/ CAD Last echocardiogram in our system was in 2008 and had no acute abnormality. He recently had a mildly positive stress test which was medically managed by cardiology. The patient has no complaint of chest pain or shortness of breath at this time. Echocardiogram revealed critical , questionable vegetation on mitral valve. Cardiology consult appreciated. 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 Blood cultures are negative. ID consult appreciated. - follow blood cultures. NGTD. - follow up with ID and cardiology. The pt will eventually need bivalvular surgery. - continue ceftriaxone. Anemia Possibly s/t ESRD. Hemoglobin stable compared to prior results. - follow CBC and transfuse as needed. Stable 05/12. - ASA on hold. - PPI. - Epogen per nephrology. Dysphagia Apparently a chronic problem. The pt was to get an endoscopy as an outpt. EGD shows class B esophagitis, erythematous gastritis and inflammation in the duodenal bulb. Dysphagia has improved. - GI following. - mechanical soft diet for now. - Speech therapy following. ESRD S/t DM. On HD. Nephrology consult appreciated. - dialysis per nephrology. Schizophrenia/ Seizure disorder The pt is on Geodon, fluoxetine and divalproex as an outpt. Mood is stable at this time. - continue home meds. DM The pt is on an insulin sliding scale as an outpt. A1c is 5.8%. Glucose well controlled 05/12. - insulin sliding scale. PPx: Heparin. Discharge Planning Awaiting further evaluation. Ernst Ortega DO May 12, 2016 16:35
[2016-05-12] MEDS: FLUoxetine HCL 20 MG CAP PO SCH (20:56)
[2016-05-12 23:05] VITALS: BP 107/67; PULSE 78; RESP 20; TEMP 97.1; O2SAT 97
[2016-05-13] MEDS: LACTATED RINGER'S 1000 ML IV SCH (00:30)
[2016-05-13 01:08] VITALS: BP 110/69; PULSE 74; RESP 22; TEMP 98.4; O2SAT 96
[2016-05-13 05:32] LABS: BICARBONATE 24.4 MEQ/L (21.0-32.0); MAGNESIUM 2.2 MG/DL (1.5-2.5); POTASSIUM 5.3 MEQ/L (3.5-5.1)
[2016-05-13] MEDS: INSULIN ASPART SUPPLEMENTAL SCALE SQ SCH ×4 (06:10→23:19)
[2016-05-13] MEDS: HEPARIN SODIUM - SQ 10,000 UNITS/ML VIAL SQ SCH ×3 (06:11→23:19)
[2016-05-13] MEDS: SEVELAMER CARBONATE 800 MG TAB PO SCH ×3 (07:55→16:48)
[2016-05-13] MEDS: ZIPRASIDONE HCL 20 MG CAP PO SCH ×2 (07:55→23:17)
[2016-05-13] MEDS: ZIPRASIDONE HCL 80 MG CAP PO SCH ×2 (07:56→23:17)
[2016-05-13] MEDS: METOPROLOL TARTRATE 25 MG TAB PO SCH ×2 (07:56→23:15)
[2016-05-13] MEDS: DOCUSATE SODIUM 100 MG CAP PO SCH ×2 (07:56→21:00)
[2016-05-13] MEDS: SENNOSIDES 8.6 MG TAB PO SCH (07:56)
[2016-05-13] MEDS: LACTULOSE SYRUP 20 GM/30 ML CUP PO SCH (07:56)
[2016-05-13] MEDS: DIVALPROEX SODIUM E.R. 500 MG TAB PO SCH ×2 (07:56→23:17)
[2016-05-13 08:00] VITALS: BP 122/81; PULSE 101; RESP 18; TEMP 98.1; O2SAT 93
--- NOTE | 2016-05-13 11:37 | HHI.NPPN ---
Subjective General Problems: Anemia, Hypertension Renal Failure: Chronic, End Stage Renal Disease Interval History Lying in bed. Pain controlled. (Zahra Aguilar) Review of Systems General Constitutional: Fatigue (Zahra Aguilar) Musculoskeletal MS: Pain/Stiffness (Zahra Aguilar) Objective Data Data 05/12/16 05/13/16 19:00 07:00 Intake Total 480 ml 1040 ml Output Total 100 ml 900 ml Balance 380 ml 140 ml Intake Oral 480 ml 1040 ml Output Urine Total 100 ml 900 ml # Voids 2 # Bowel Movements 0 1 Vital Signs Date Time Temp Pulse Resp B/P Pulse Ox O2 Delivery O2 Flow Rate FiO2 05/13/16 08:00 98.1 101 18 122/81 93 05/13/16 07:50 Room Air 05/13/16 01:08 98.4 74 22 110/69 96 05/12/16 23:05 97.1 78 20 107/67 97 05/12/16 20:00 97 Room Air 05/12/16 15:30 98.0 105 16 119/68 92 (Zahra Aguilar) -: 05/12/16 0549 05/13/16 0339 Physical Exam General Appearance: Well Nourished, No Acute Distress, Comfortable (Zahra Aguilar) Throat Throat Exam: Oral Mucosa [place] & Moist (Zahra Aguilar) Pulmonary Resp Exam: Clear Bilaterally, Breath Sounds Equal (Zahra Aguilar) Cardiology CV Exam: Normal Sinus Rhythm, Murmur CV Remarks III/ systolic murmur, mitral area, radiates to left axilla (Zahra Aguilar) Gastrointestinal/Abdomen GI Exam: Soft, Non-Tender, Bowel Sounds Present (Zahra Aguilar) Musculoskeletal MS Exam: Joints Intact, Normal Tone (Zahra Aguilar) Integumentary Skin Exam: Warm, Dry (Zahra Aguilar) Extremeties Extremities Exam: Trace Edema (Zahra Aguilar) Neurologic Neuro Exam: Alert, Awake, Oriented (Zahra Aguilar) Psychiatric Psych Exam: Appropriate Responses (Zahra Aguilar) Assessment/Plan Discussed Condition With: Patient Assessment Summary: Anemia of CKD, Hypertension, End Stage Renal Disease Problem List: (1) ESRD (end stage renal disease) Plan: We will continue HD TTS. He is due tomorrow Continue Renvela for metabolic bone disorder, monitor phos peridically Historically, patient has been non compliant with diet and medications, at least partially due to his bipolar illness. On high protein diet. continue current plan (2) Hypertension Plan: continue home medications. Monitor. (3) Anemia Plan: epogen with HD (4) Femoral neck fracture Plan: Seen by Orthopedics. Surgery on hold at this point due to cardiac issues including possible endocarditis. needs ID clearance (5) Murmur Plan: Last echocardiogram recorded was in 2008, with no acute abnormality. He recently had a mildly positive stress test which was medically managed by cardiology. The patient has no complaint of chest pain or shortness of breath at this time. Echocardiogram revealed critical . he will need eventual valve replacement on Rocephin prophylactically he denies hx of rheumatic fever of IVDA (Zahra Aguilar) Plan patient was seen and examined. Agree with above assessment and plan. Patient needs hip surgery, awaiting clearance from ID and cardiology. (Felix Andersen MD) Problem Qualifiers (1) Femoral neck fracture: Qualified Code: S72.002A - Closed fracture of neck of left femur, initial encounter Zahra Aguilar May 13, 2016 11:37 Felix Andersen MD May 14, 2016 11:41
[2016-05-13 12:00] VITALS: BP 104/78; PULSE 86; RESP 18; TEMP 98.2; O2SAT 94
[2016-05-13] MEDS: PANTOPRAZOLE SODIUM 40 MG VIAL IV PUSH SCH (13:37)
[2016-05-13] MEDS ORDERED: SODIUM POLYSTYRENE SULFONATE SUSP 15 GM/60 ML CUP PO ONE (15:45)
--- NOTE | 2016-05-13 15:51 | HHI.PR ---
Subjective Remarks The patient was resting comfortably in bed. He had no acute complaints. Discussed with nursing. Objective Vitals Vital Signs Date Time Temp Pulse Resp B/P Pulse Ox O2 Delivery O2 Flow Rate FiO2 05/13/16 12:00 98.2 86 18 104/78 94 05/13/16 08:00 98.1 101 18 122/81 93 05/13/16 07:50 Room Air 05/13/16 01:08 98.4 74 22 110/69 96 05/12/16 23:05 97.1 78 20 107/67 97 05/12/16 20:00 97 Room Air I/O 05/12/16 05/12/16 05/12/16 05/13/16 05/13/16 05/13/16 07:00 15:00 23:00 07:00 15:00 23:00 Intake Total 120 ml 480 ml 1040 ml Output Total 0 ml 100 ml 900 ml Balance 120 ml 380 ml 140 ml Intake Oral 120 ml 480 ml 1040 ml Output Urine Total 0 ml 100 ml 900 ml # Voids 2 # Bowel Movements 0 0 1 Result Diagram: 05/12/16 0549 05/13/16 0339 Imaging Last Impressions Hip and Pelvis X-Ray 05/07/16220 Signed Impressions: Service Date/Time: Saturday, May 07, 2016 02:46 - CONCLUSION: Left femoral neck fracture. Rayo Cespedes MD Chest X-Ray 05/07/16220 Signed Impressions: Service Date/Time: Saturday, May 07, 2016 02:46 - CONCLUSION: 1. Atelectasis versus mild consolidation in the left midlung. 2. Mild chronic cardiac silhouette enlargement. Rayo Cespedes MD Objective Remarks GENERAL: No apparent distress, resting comfortably. SKIN: Warm and dry. HEAD: Atraumatic. Normocephalic. EYES: Pupils equal and round. No scleral icterus. No injection or drainage. ENT: No nasal bleeding or discharge. Mucous membranes pink and moist. NECK: Trachea midline. No JVD. CARDIOVASCULAR: Regular rate and rhythm. Harsh systolic murmur appreciated. RESPIRATORY: No accessory muscle use. Clear to auscultation. Breath sounds equal bilaterally. GASTROINTESTINAL: Abdomen soft, non-tender, nondistended. Hepatic and splenic margins not palpable. MUSCULOSKELETAL: Tenderness overlying the region of the left greater trochanter. NEUROLOGICAL: Awake and alert. No obvious cranial nerve deficits. Motor grossly within normal limits. Normal speech. PSYCHIATRIC: Mood and affect appropriate. Procedures DAISY EGD Medications and IVs Current Medications Medications (Trade) Dose Ordered Sig/Diane Route Start Time Stop Time Status Last Admin (NS Flush) 2 ml UNSCH PRN IVF 05/07/16 02:30 (Tylenol) 650 mg Q4H PRN PO 05/07/16 03:45 (Zofran Inj) 4 mg Q6H PRN IVP 05/07/16 03:45 05/09/16 00:04 (Milk Of Magnesia Liq) 30 ml Q12H PRN PO 05/07/16 03:45 (Tylenol) 650 mg Q6H PRN PO 05/07/16 03:45 (Dilaudid Pf Inj) 0.5 mg Q3H PRN IV 05/07/16 03:45 05/10/16 06:43 Naloxone HCl 0.4 mg 0.4 mg UNSCH PRN IV 05/07/16 03:45 (NS 1000 ml Inj) 1,000 ml @ 0 mls/hr Q0M PRN IV 05/07/16 09:06 Heparin Sodium (Porcine) 8000 units 8,000 units UNSCH PRN IVF 05/07/16 09:15 Sodium Chloride 1,000 ml @ 200 mls/hr Q5H PRN IV 05/07/16 09:06 05/09/16 15:25 (NS 1000 ml Inj) 1,000 ml @ 0 mls/hr Q0M PRN IV 05/07/16 09:06 (Mannitol Inj) 12.5 gm UNSCH PRN IV 05/07/16 09:15 (Albumin 25% Inj) 25 gm UNSCH PRN IV 05/07/16 09:15 (NS Flush) 5 ml UNSCH PRN IVF 05/07/16 09:15 (Heparin Inj) UNSCH PRN .XX 05/07/16 09:15 (Gentamicin (Dialysis) Inj) 20 mg UNSCH PRN IV 05/07/16 09:15 (Zofran Inj) 4 mg UNSCH PRN IV 05/07/16 09:15 05/07/16 22:47 (Tylenol) 650 mg UNSCH PRN PO 05/07/16 09:15 (Benadryl) 25 mg UNSCH PRN PO 05/07/16 09:15 (Nitrostat Sl) 0.4 mg UNSCH PRN SL 05/07/16 09:15 (Catapres) 0.1 mg UNSCH PRN PO 05/07/16 09:15 (Epogen Inj) 10,000 units UNSCH PRN IV 05/07/16 09:15 05/11/16 10:36 (Gelfoam 12 Mm/7 Mm Top) 1 foam UNSCH PRN TOP 05/07/16 09:15 05/11/16 10:36 (Roxicodone) 10 mg Q4H PRN PO 05/07/16 12:00 05/11/16 13:23 (Roxicodone) 5 mg Q4H PRN PO 05/07/16 12:00 05/12/16 20:55 (Colace) 100 mg BID PO 05/07/16 21:00 05/13/16 07:56 (Senokot) 17.2 mg DAILY PO 05/08/16 09:00 05/10/16 10:50 (Geodon) 80 mg BID PO 05/07/16 21:00 05/13/16 07:56 (Depakote Er) 500 mg BID PO 05/07/16 13:00 05/13/16 07:56 (PROzac) 20 mg HS PO 05/07/16 21:00 05/12/16 20:56 (Lopressor) 12.5 mg Q12HR PO 05/07/16 21:00 05/13/16 07:56 (Geodon) 20 mg BID PO 05/07/16 21:00 05/13/16 07:55 Sevelamer Carbonate 1600 mg 1,600 mg TIDAC PO 05/08/16 17:00 05/13/16 11:20 Ceftriaxone Sodium 2000 mg/ Sodium Chloride 100 ml @ 200 mls/hr Q24H IV 05/08/16 16:00 05/12/16 16:25 (Lr 1000 ml Inj) 1,000 ml @ 30 mls/hr Q24H IV 05/10/16 00:30 (Lactulose Liq) 30 ml DAILY PO 05/10/16 09:00 05/10/16 10:55 (Heparin Inj) 5,000 units Q8HR SQ 05/10/16 14:00 05/13/16 13:37 (Protonix) 40 mg DAILY PO 05/14/16 09:00 A/P Assessment and Plan Left femoral neck fracture The patient sustained a mechanical fall with a resultant left femoral neck fracture. Orthopedic surgery consult appreciated. Per the revised cardiac risk index the patient is at increased risk secondary to elevated creatinine requiring hemodialysis and recent positive stress test. The patient is also on insulin, however, that is a sliding scale dose and the patient is not dependent on it. With that in mind the patient is a moderate risk for a moderate risk procedure. - Pain control with a bowel regimen. - PT/OT. - Surgery on hold as pt has questionable vegetation on mitral valve. Awaiting ID clearance. Surgery following. Heart murmur/ CAD Last echocardiogram in our system was in 2008 and had no acute abnormality. He recently had a mildly positive stress test which was medically managed by cardiology. The patient has no complaint of chest pain or shortness of breath at this time. Echocardiogram revealed critical , questionable vegetation on mitral valve. Cardiology consult appreciated. 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 Blood cultures are negative. ID consult appreciated. - follow blood cultures. NGTD. - follow up with ID and cardiology. The pt will eventually need bivalvular surgery. - continue ceftriaxone. Anemia Possibly s/t ESRD. Hemoglobin stable compared to prior results. - follow CBC and transfuse as needed. Stable 05/12. - ASA on hold. - PPI. - Epogen per nephrology. Dysphagia Apparently a chronic problem. The pt was to get an endoscopy as an outpt. EGD shows class B esophagitis, erythematous gastritis and inflammation in the duodenal bulb. Dysphagia has improved. - GI following. - mechanical soft diet for now. - Speech therapy following. ESRD S/t DM. On HD. Nephrology consult appreciated. Pt with hyperkalemia 05/13. - dialysis per nephrology. - Kayexalate x 1 05/13. - follow BMP. Schizophrenia/ Seizure disorder The pt is on Geodon, fluoxetine and divalproex as an outpt. Mood is stable at this time. - continue home meds. DM The pt is on an insulin sliding scale as an outpt. A1c is 5.8%. Glucose relatively well controlled 05/13. - insulin sliding scale. PPx: Heparin. Discharge Planning Awaiting further evaluation. Ernst Ortega DO May 13, 2016 15:51
[2016-05-13 16:00] VITALS: BP 134/84; PULSE 94; RESP 18; TEMP 98.8; O2SAT 94
[2016-05-13] MEDS: cefTRIAXone INJ 2,000 MG in SODIUM CHLORIDE 0.9% INJ 100 ML IV SCH (16:47)
[2016-05-13 20:35] VITALS: BP 123/69; PULSE 50; RESP 19; TEMP 98.6; O2SAT 95
[2016-05-13] MEDS: FLUoxetine HCL 20 MG CAP PO SCH (23:17)
[2016-05-14] MEDS: LACTATED RINGER'S 1000 ML IV SCH (00:30)
[2016-05-14 00:40] VITALS: BP 132/85; PULSE 107; RESP 20; TEMP 96.4; O2SAT 96
[2016-05-14 04:09] VITALS: BP 122/81; PULSE 58; RESP 19; TEMP 97; O2SAT 93
[2016-05-14] MEDS: HEPARIN SODIUM - SQ 10,000 UNITS/ML VIAL SQ SCH ×3 (05:49→21:26)
[2016-05-14] MEDS: INSULIN ASPART SUPPLEMENTAL SCALE SQ SCH ×4 (05:49→21:26)
[2016-05-14 06:36] LABS: BICARBONATE 21.8 MEQ/L (21.0-32.0); MAGNESIUM 2.3 MG/DL (1.5-2.5); POTASSIUM 5.8 MEQ/L (3.5-5.1)
[2016-05-14 08:00] VITALS: BP 98/68; PULSE 95; RESP 19; TEMP 96.9; O2SAT 94
[2016-05-14] MEDS: SEVELAMER CARBONATE 800 MG TAB PO SCH ×3 (08:00→17:17)
[2016-05-14] MEDS: LACTULOSE SYRUP 20 GM/30 ML CUP PO SCH (09:00)
[2016-05-14] MEDS: PANTOPRAZOLE SOD 40 MG DELAYED RELEASE TAB PO SCH (09:00)
[2016-05-14] MEDS: DIVALPROEX SODIUM E.R. 500 MG TAB PO SCH ×2 (09:00→21:26)
[2016-05-14] MEDS: METOPROLOL TARTRATE 25 MG TAB PO SCH ×2 (09:00→21:27)
[2016-05-14] MEDS: ZIPRASIDONE HCL 80 MG CAP PO SCH ×2 (09:00→21:30)
[2016-05-14] MEDS: ZIPRASIDONE HCL 20 MG CAP PO SCH ×2 (09:00→21:26)
[2016-05-14] MEDS: DOCUSATE SODIUM 100 MG CAP PO SCH ×2 (09:00→21:26)
[2016-05-14] MEDS: SENNOSIDES 8.6 MG TAB PO SCH (09:00)
--- NOTE | 2016-05-14 09:08 | HHI.NPPN ---
Subjective General Problems: Anemia, Hypertension Renal Failure: Chronic, End Stage Renal Disease Interval History Seen during dialysis. He is hyperkalemic today. No overnight events reported. ( Zahra Aguilar) Review of Systems General Constitutional: Fatigue (Zahra Aguilar) Musculoskeletal MS: Pain/Stiffness (Zahra Aguilar) Objective Data Data 05/13/16 05/14/16 19:00 07:00 Intake Total 960 ml 480 ml Balance 960 ml 480 ml Intake Oral 960 ml 480 ml # Voids 3 # Bowel Movements 3 0 Vital Signs Date Time Temp Pulse Resp B/P Pulse Ox O2 Delivery O2 Flow Rate FiO2 05/14/16 08:00 96.9 95 19 98/68 94 05/14/16 04:09 97.0 58 19 122/81 93 05/14/16 00:40 96.4 107 20 132/85 96 05/13/16 21:00 Room Air 05/13/16 20:35 98.6 50 19 123/69 95 05/13/16 16:00 98.8 94 18 134/84 94 05/13/16 12:00 98.2 86 18 104/78 94 (Zahra Aguilar) -: 05/12/16 0549 05/14/16 0521 Imaging Last Impressions Hip and Pelvis X-Ray 05/07/16220 Signed Impressions: Service Date/Time: Saturday, May 07, 2016 02:46 - CONCLUSION: Left femoral neck fracture. Rayo Cespedes MD Chest X-Ray 05/07/16220 Signed Impressions: Service Date/Time: Saturday, May 07, 2016 02:46 - CONCLUSION: 1. Atelectasis versus mild consolidation in the left midlung. 2. Mild chronic cardiac silhouette enlargement. Rayo Cespedes MD (Zahra Aguilar) Physical Exam General Appearance: Well Nourished, No Acute Distress, Comfortable (Zahra Aguilar) Throat Throat Exam: Oral Mucosa [place] & Moist (Zahra Aguilar) Pulmonary Resp Exam: Clear Bilaterally, Breath Sounds Equal (Zahra Aguilar) Cardiology CV Exam: Normal Sinus Rhythm, Murmur CV Remarks III/ systolic murmur, mitral area, radiates to left axilla (Zahra Aguilar) Gastrointestinal/Abdomen GI Exam: Soft, Non-Tender, Bowel Sounds Present (Zahra Aguilar) Musculoskeletal MS Exam: Joints Intact, Normal Tone (Zahra Aguilar) Integumentary Skin Exam: Warm, Dry (Zahra Aguilar) Extremeties Extremities Exam: Trace Edema (Zahra Aguilar) Neurologic Neuro Exam: Alert, Awake, Oriented (Zahra Aguilar) Psychiatric Psych Exam: Appropriate Responses (Zahra Aguilar) Assessment/Plan Discussed Condition With: Patient Assessment Summary: Anemia of CKD, Hypertension, End Stage Renal Disease Problem List: (1) ESRD (end stage renal disease) Plan: We will continue HD TTS. Seen during dialysis on a 1K, 400 BFR, goal 3L K 5.8, on 1K bath, repeat renal panel in am low K, high protein diet Continue Renvela for metabolic bone disorder, monitor phos peridically Historically, patient has been non compliant with diet and medications, at least partially due to his bipolar illness. continue current plan (2) Hypertension Plan: continue home medications. Monitor. (3) Anemia Plan: epogen with HD (4) Femoral neck fracture Plan: Seen by Orthopedics. Surgery on hold at this point due to cardiac issues including possible endocarditis. needs ID clearance (5) Murmur Plan: Last echocardiogram recorded was in 2008, with no acute abnormality. He recently had a mildly positive stress test which was medically managed by cardiology. Echocardiogram revealed critical with possible vegetation he will need eventual valve replacement on Rocephin prophylactically for endocarditis he denies hx of rheumatic fever of IVDA (Zahra Aguilar) Plan patient was seen and examined. Seen during dialysis. On 1K, BFR is 400 ml/min. UF goal is about 3 liters. Tolerating it well. He is still awaiting surgery for hip fracture. ID and cardiology following. (Felix Andersen MD) Problem Qualifiers (1) Femoral neck fracture: Qualified Code: S72.002A - Closed fracture of neck of left femur, initial encounter Zahra Aguilar May 14, 2016 09:08 Felix Andersen MD May 14, 2016 11:52
[2016-05-14] MEDS: EPOETIN ALFA 10,000 UNITS/ML VIAL IV PRN (11:44)
--- NOTE | 2016-05-14 15:18 | HHI.PR ---
Subjective Remarks Patient complains of thirst, states he has been waiting for a mariaelena jayde for an hour. Denies hip pain unless moves. Patient went to dialysis today. Objective Vitals Vital Signs Date Time Temp Pulse Resp B/P Pulse Ox O2 Delivery O2 Flow Rate FiO2 05/14/16 08:00 Simple Mask 3.00 05/14/16 08:00 96.9 95 19 98/68 94 05/14/16 04:09 97.0 58 19 122/81 93 05/14/16 00:40 96.4 107 20 132/85 96 05/13/16 21:00 Room Air 05/13/16 20:35 98.6 50 19 123/69 95 05/13/16 16:00 98.8 94 18 134/84 94 I/O 05/13/16 05/13/16 05/13/16 05/14/16 05/14/16 05/14/16 07:00 15:00 23:00 07:00 15:00 23:00 Intake Total 1040 ml 960 ml 240 ml 240 ml Output Total 900 ml 3000 ml Balance 140 ml 960 ml 240 ml 240 ml -3000 ml Intake Oral 1040 ml 960 ml 240 ml 240 ml Output Urine Total 900 ml Hemodialysis 3000 ml # Voids 1 2 # Bowel Movements 1 3 0 0 Result Diagram: 05/12/16 0549 05/14/16 0521 Objective Remarks GENERAL: Well-nourished, well-developed male pleasant patient. SKIN: Warm and dry. HEAD: Normocephalic. Oropharynx: Dry lips and mucous membranes. EYES: No scleral icterus. No injection or drainage. NECK: Supple, trachea midline. No JVD or lymphadenopathy. CARDIOVASCULAR: Regular rate and rhythm. 3/6 holosystolic murmur loudest at left sternal border. RESPIRATORY: Breath sounds equal bilaterally. Clear to auscultation anteriorly. No accessory muscle use on 2 L nasal cannula. GASTROINTESTINAL: Abdomen soft, non-tender, nondistended. EXTREMITIES: Trace pedal edema. NEUROLOGICAL: Awake, alert, and oriented. Somewhat flat affect. Procedures DAISY EGD A/P Problem List: (1) Femoral neck fracture ICD Code: S72.009A Status: Acute (2) Fall ICD Code: W19.XXXA Status: Acute (3) Schizophrenia ICD Code: F20.9 Status: Chronic (4) DM (diabetes mellitus) ICD Code: E11.9 Status: Chronic (5) Anemia ICD Code: D64.9 Status: Chronic (6) End stage renal failure on dialysis ICD Code: N18.6 Status: Chronic (7) Aortic valve stenosis, critical ICD Code: I35.0 Status: Acute (8) Mitral valve stenosis ICD Code: I05.0 Status: Acute (9) Mitral valve regurgitation ICD Code: I34.0 Status: Acute (10) Esophagitis, [place] grade B ICD Code: K20.8 Status: Acute (11) Gastritis ICD Code: K29.70 Status: Acute (12) Dysphagia ICD Code: R13.10 Status: Acute Assessment and Plan - Left femoral neck fracture status post mechanical fall - Orthopedic surgery following; surgery on hold pending infectious disease clearance. As part of his preop workup he did undergo a 2-D echo which was remarkable for aortic stenosis and a possible mitral valve vegetation. Patient underwent DAISY which did show critical aortic valve stenosis, moderate to severe mitral valve regurgitation, with flail motion of the posterior leaflet of the mitral valve due to rupture one or more cords, appearance was more consistent with sclerotic valve with flail posterior leaflet involving the septal valvular mitral apparatus however a vegetation could not be completely excluded. Blood cultures have been negative for 5 days now. He has been on Rocephin IV prophylactically. -Discussed with ID/Dr. Dove - unlikely to be infectious endocarditis given the negative blood cultures and in addition patient does not have any clinical stigmata of endocarditis. Serologies for Q fever and Bartonella are pending to r/o culture negative IE- these should return within next 2 days. If neg, cleared from ID perspective for surgery. -Discussed with Dr. Garcia. Patient is at increased risk for surgery from medical perspective due to the critical aortic valve stenosis and end-stage renal disease. No stress test due to the . -Nonweightbearing at this time. -Will d/w ortho the timing of surgery after IE ruled out. -Sclerotic mitral valve with flail motion of the posterior leaflet of the mitral valve due to rupture one or more cords, appearance was more consistent with sclerotic valve with flail posterior leaflet involving the septal valvular mitral apparatus however a vegetation could not be completely excluded. Blood cultures have been negative for 5 days now. He has been on Rocephin IV prophylactically. Serologies for Q fever and Bartonella are pending to r/o culture negative IE- these should return within next 2 days. If negative, will stop antibiotics and patient will be cleared from ID perspective for surgery. D/ w Dr. Dove. -Critical aortic stenosis, mod-severe MV regurg - will need to get CT surgery input on timing of and candidacy for surgery. -Anemia of CKD - stable. Epogen per nephrology. Dysphagia - EGD 05/10 showed class B esophagitis, erythematous gastritis and inflammation in the duodenal bulb. Dysphagia has improved, tolerating mechanical soft diet with thin liquids. -ESRD- cont HD per nephrology. T, Th, Sat. (followed by Dr. Felix Antony). -Hyperkalemia - 5.8 today - s/p dialysis today, rcved kayexylate yesterday. will repeat BMP in a.m. Schizophrenia/ Seizure disorder - appears compensated at this time. -Cont Geodon, fluoxetine and divalproex as per outpatient doses. -DM-The pt is on an insulin sliding scale as an outpt. A1c is 5.8%. Cont SSI. PPx: Heparin SQ. Problem Qualifiers (1) Femoral neck fracture: Qualified Code: S72.002A - Closed fracture of neck of left femur, initial encounter (2) Fall: Qualified Code: W19.XXXA - Fall, initial encounter Marcia Marks MD May 14, 2016 15:18
[2016-05-14 15:30] VITALS: BP 114/70; PULSE 108; RESP 18; TEMP 97.6; O2SAT 95
[2016-05-14] MEDS: cefTRIAXone INJ 2,000 MG in SODIUM CHLORIDE 0.9% INJ 100 ML IV SCH (16:00)
--- NOTE | 2016-05-14 16:03 | HHI.IDPN ---
Subjective Subjective Remarks Xcover for Dr Hahn afebrile co L hip pain no new issues Antibiotics CFTX Past Medical History ESRD on HD , Fri Seizure disorder Reza's esophagus Diabetes mellitus Schizophrenia Depression Skin cancers CAD HTN Past Surgical History Left upper extremity AV graft EGD Skin cancer removal from the forehead AV fistula atherectomy in Mar 2016. Allergies: Coded Allergies: Vee (Verified Adverse Reaction, Unknown, PT DENIES ALLERGY, 05/07/16) Pt denies allergy Objective . Vital Signs Date Time Temp Pulse Resp B/P Pulse Ox O2 Delivery O2 Flow Rate FiO2 05/14/16 08:00 Simple Mask 3.00 05/14/16 08:00 96.9 95 19 98/68 94 05/14/16 04:09 97.0 58 19 122/81 93 05/14/16 00:40 96.4 107 20 132/85 96 05/13/16 21:00 Room Air 05/13/16 20:35 98.6 50 19 123/69 95 05/13/16 16:00 98.8 94 18 134/84 94 05/13/16 05/13/16 05/14/16 15:00 23:00 07:00 Intake Total 960 ml 240 ml 240 ml Balance 960 ml 240 ml 240 ml Intake Oral 960 ml 240 ml 240 ml # Voids 1 2 # Bowel Movements 3 0 0 . Laboratory Tests Test 05/13/16 05/14/16 03:39 05:21 Sodium Level 136 MEQ/L 132 MEQ/L Potassium Level 5.3 MEQ/L 5.8 MEQ/L Chloride Level 94 MEQ/L 93 MEQ/L Carbon Dioxide Level 24.4 MEQ/L 21.8 MEQ/L Anion Gap 18 MEQ/L 17 MEQ/L Blood Urea Nitrogen 95 MG/DL 121 MG/DL Creatinine 9.22 MG/DL 10.93 MG/DL Estimat Glomerular Filtration 6 ML/MIN 5 ML/MIN Rate Random Glucose 134 MG/DL 130 MG/DL Calcium Level 10.6 MG/DL 10.3 MG/DL Magnesium Level 2.2 MG/DL 2.3 MG/DL Imaging Last Impressions Hip and Pelvis X-Ray 05/07/16 0221 Signed Impressions: Service Date/Time: Saturday, May 07, 2016 02:46 - CONCLUSION: Left femoral neck fracture. Rayo Cespedes MD Chest X-Ray 05/07/16 0221 Signed Impressions: Service Date/Time: Saturday, May 07, 2016 02:46 - CONCLUSION: 1. Atelectasis versus mild consolidation in the left midlung. 2. Mild chronic cardiac silhouette enlargement. Rayo Cespedes MD Physical Exam GENERAL: Obese, looks older than stated age, in no apparent distress. SKIN: Multiple areas of hypopigmentation which patient reports is from multiple scarring. Excoriations noted as well No [place] lesions HEAD: Atraumatic. Normocephalic. No temporal or scalp tenderness. EYES: Pupils equal round and reactive. Extraocular motions intact. No scleral icterus. No injection or drainage. No conjunctival petechia or hemorrhages CARDIOVASCULAR: Grade 4/6 crescendo decrescendo murmur. RESPIRATORY: Clear to auscultation. Breath sounds equal bilaterally. No wheezes , rales, or rhonchi. GASTROINTESTINAL: Abdomen soft, non-tender, nondistended. Obese. MUSCULOSKELETAL: Left foot pointing towards to the lateral aspect. Left upper extremity with AV fistula with no evidence of infection. NEUROLOGICAL: Awake and alert. Grossly nonfocal. Psych cooperative IV line sites with no evidence of infection. Assessment & Plan Remarks Suspected culture neg Endocarditis vs Sclerotic mitral valve. - DAISY favouring calcification - Dw Dr Garcia - he is convinced that by far its not a vegetation - no clinical findings susp for endocarditis - neg blood clx Elevated inflammatory parameters (includfing procalcitonin, CRP) ESRD on HD with AV fistula. Recent angioplasty at the Left AV fistula site. d.w . No infections outpatient. Not on antibiotics prior to admission CAD (patient reports no murmur before, Last ECHO in 2008 with no valve issues, last clinical exam in feb 2016 with no mention of murmur) New murmur New mitral stenosis with calcification and ?flail posterior leaflet vs vegetation. Atheromatous mobile plaque. At risk for infections in general but also due to AV fistula access 3 times a week. Recs dc Ceftriaxone IV fu Bartonella, Coxiella serologies (will b back this wk - dw microlab) I think diagnosis of endocarditis at this point is essentially rejected ( incidental findings, negative cultures, DAISY not favouring endocarditis) dw Dagoberto Garcia, Nettie Chau MD May 14, 2016 16:03
[2016-05-14 18:58] VITALS: BP 112/68; PULSE 103; RESP 18; TEMP 98.3; O2SAT 95
[2016-05-14] MEDS: FLUoxetine HCL 20 MG CAP PO SCH (21:27)
[2016-05-14] MEDS: SODIUM CHLORIDE 0.9% FLUSH 5 ML FLUSH IVF PRN (21:27)
[2016-05-14] MEDS: HYDROmorphone HCL PF 1 MG/ML VIAL IV PRN (21:27)
[2016-05-14 23:39] LABS: BARTONELLA HENSELAE IGG <1:128 titer (<1:128); BARTONELLA HENSELAE IGM <1:20 titer (<1:20); BARTONELLA QUINTANA IGM <1:20 titer (<1:20)
[2016-05-15] VITALS (7 sets, daily range): BP systolic 90–124; BP diastolic 54–81; PULSE 72–89; RESP 16–20; TEMP 95.7–98.1; O2SAT 95–97
[2016-05-15] MEDS: LACTATED RINGER'S 1000 ML IV SCH (00:30)
[2016-05-15] MEDS: HEPARIN SODIUM - SQ 10,000 UNITS/ML VIAL SQ SCH ×3 (05:01→21:50)
[2016-05-15] MEDS: HYDROmorphone HCL PF 1 MG/ML VIAL IV PRN (05:02)
[2016-05-15] MEDS: INSULIN ASPART SUPPLEMENTAL SCALE SQ SCH ×4 (07:00→21:00)
[2016-05-15 07:02] LABS: BICARBONATE 28.4 MEQ/L (21.0-32.0); POTASSIUM 4.2 MEQ/L (3.5-5.1)
[2016-05-15] MEDS: SEVELAMER CARBONATE 800 MG TAB PO SCH ×4 (08:00→17:18)
[2016-05-15] MEDS: PANTOPRAZOLE SOD 40 MG DELAYED RELEASE TAB PO SCH ×2 (09:00→09:34)
[2016-05-15] MEDS: DOCUSATE SODIUM 100 MG CAP PO SCH ×2 (09:00→21:47)
[2016-05-15] MEDS: LACTULOSE SYRUP 20 GM/30 ML CUP PO SCH ×2 (09:00→09:35)
[2016-05-15] MEDS: SENNOSIDES 8.6 MG TAB PO SCH (09:00)
[2016-05-15] MEDS: ZIPRASIDONE HCL 20 MG CAP PO SCH ×2 (09:34→21:47)
[2016-05-15] MEDS: ZIPRASIDONE HCL 80 MG CAP PO SCH ×2 (09:34→21:47)
[2016-05-15] MEDS: DIVALPROEX SODIUM E.R. 500 MG TAB PO SCH ×2 (09:35→21:48)
[2016-05-15] MEDS: METOPROLOL TARTRATE 25 MG TAB PO SCH ×2 (09:36→21:48)
[2016-05-15] MEDS: cefTRIAXone INJ 2,000 MG in SODIUM CHLORIDE 0.9% INJ 100 ML IV SCH (10:49)
--- NOTE | 2016-05-15 11:40 | HHI.NPPN ---
Subjective General Problems: Anemia, Hypertension Renal Failure: Chronic, End Stage Renal Disease Interval History Ortho surgery still on hold. He states he is eating well. Had HD yesterday. ( Zahra Aguilar) Review of Systems General Constitutional: Fatigue (Zahra Aguilar) Musculoskeletal MS: Pain/Stiffness (Zarha Aguilar) Objective Data Data 05/14/16 05/15/16 19:00 07:00 Intake Total 120 ml 840 ml Output Total 3000 ml 2 ml Balance -2880 ml 838 ml Intake Oral 120 ml 840 ml Output Urine Total 2 ml Hemodialysis 3000 ml # Voids 0 1 # Bowel Movements 0 Vital Signs Date Time Temp Pulse Resp B/P Pulse Ox O2 Delivery O2 Flow Rate FiO2 05/15/16 10:50 Room Air 05/15/16 08:00 97.9 87 18 117/70 96 05/15/16 04:38 97.5 84 20 113/66 95 05/15/16 00:36 97.2 86 20 119/81 95 05/14/16 19:26 Room Air 05/14/16 18:58 98.3 103 18 112/68 95 05/14/16 15:30 97.6 108 18 114/70 95 (Zahra Aguilar) -: 05/12/16 0549 05/15/16 0533 Physical Exam General Appearance: Well Nourished, No Acute Distress, Comfortable (Zahra Aguilar) Throat Throat Exam: Oral Mucosa [place] & Moist (Zahra Aguilar) Pulmonary Resp Exam: Clear Bilaterally, Breath Sounds Equal (Zahra Aguilar) Cardiology CV Exam: Normal Sinus Rhythm, Murmur CV Remarks III/ systolic murmur, mitral area, radiates to left axilla (Zahra Aguilar) Gastrointestinal/Abdomen GI Exam: Soft, Non-Tender, Bowel Sounds Present (Zahra Aguilar) Musculoskeletal MS Exam: Joints Intact, Normal Tone (Zahra Aguilar) Integumentary Skin Exam: Warm, Dry (Zahra Aguilar) Extremeties Extremities Exam: Trace Edema (Zahra Aguilar) Neurologic Neuro Exam: Alert, Awake, Oriented (Zahra Aguilar) Psychiatric Psych Exam: Appropriate Responses (Zahra Aguilar) Assessment/Plan Discussed Condition With: Patient Assessment Summary: Anemia of CKD, Hypertension, End Stage Renal Disease Problem List: (1) ESRD (end stage renal disease) Plan: We will continue HD TTS. 3L UF yesterday hyperkalemic yesterday, repeat BMP yesterday low K, high protein diet Continue Renvela for metabolic bone disorder, monitor phos peridically Historically, patient has been non compliant with diet and medications, at least partially due to his bipolar illness. continue current plan (2) Femoral neck fracture Plan: Seen by Orthopedics. Surgery on hold at this point due to cardiac issues including possible endocarditis. needs ID clearance (3) Murmur Plan: Last echocardiogram recorded was in 2008, with no acute abnormality. He recently had a mildly positive stress test which was medically managed by cardiology. Echocardiogram revealed critical with possible vegetation, DAISY taken he will need eventual valve replacement he denies hx of rheumatic fever of IVDA Bartonella and Coxiella serologies pending, results should be back , if negative cleared by ID Rocephin was stopped needs cardiology and ID clearance; may be possible to treat prophylactically with Doxycycline? (4) Hypertension Plan: continue home medications. Monitor. (5) Anemia Plan: epogen with HD (Zahra Aguilar) Plan patient was seen and examined. Unfortunately surgery on hold due to cardiac issues. Notes were reviewed. Needs clearance from ID and cardiology. CT surgery also consulted. (Felix Andersen MD) Problem Qualifiers (1) Femoral neck fracture: Qualified Code: S72.002A - Closed fracture of neck of left femur, initial encounter Zahra Aguilar May 15, 2016 11:40 Felix Andersen MD May 16, 2016 08:01
--- NOTE | 2016-05-15 15:32 | HHI.PR ---
Subjective Remarks Patient denies chest pain or shortness of breath. No head pain unless he moves. He states his family contacts are his brother Fernando and his stepmother. Objective Vitals Vital Signs Date Time Temp Pulse Resp B/P Pulse Ox O2 Delivery O2 Flow Rate FiO2 05/15/16 11:48 95.7 72 18 94/55 95 05/15/16 10:50 Room Air 05/15/16 08:00 97.9 87 18 117/70 96 05/15/16 07:25 Room Air 05/15/16 04:38 97.5 84 20 113/66 95 05/15/16 00:36 97.2 86 20 119/81 95 05/14/16 19:26 Room Air 05/14/16 18:58 98.3 103 18 112/68 95 05/14/16 15:30 97.6 108 18 114/70 95 I/O 05/14/16 05/14/16 05/14/16 05/15/16 05/15/16 05/15/16 07:00 15:00 23:00 07:00 15:00 23:00 Intake Total 240 ml 120 ml 360 ml 480 ml Output Total 3000 ml 2 ml Balance 240 ml -2880 ml 360 ml 478 ml Intake Oral 240 ml 120 ml 360 ml 480 ml Output Urine Total 2 ml Hemodialysis 3000 ml # Voids 2 0 1 # Bowel Movements 0 0 0 Result Diagram: 05/12/16 0549 05/15/16 0533 Objective Remarks GENERAL: Well-nourished, well-developed male pleasant patient. SKIN: Warm and dry. HEAD: Normocephalic. Oropharynx: Dry lips and mucous membranes. EYES: No scleral icterus. No injection or drainage. NECK: Supple, trachea midline. No JVD or lymphadenopathy. CARDIOVASCULAR: Regular rate and rhythm. 3/6 holosystolic murmur loudest at left sternal border. RESPIRATORY: Breath sounds equal bilaterally. Clear to auscultation anteriorly. No accessory muscle use on 2 L nasal cannula. GASTROINTESTINAL: Abdomen soft, non-tender, nondistended. EXTREMITIES: Trace pedal edema. NEUROLOGICAL: Awake, alert, and oriented. Somewhat flat affect. Procedures DAISY EGD A/P Problem List: (1) Femoral neck fracture ICD Code: S72.009A Status: Acute (2) Fall ICD Code: W19.XXXA Status: Acute (3) Schizophrenia ICD Code: F20.9 Status: Chronic (4) DM (diabetes mellitus) ICD Code: E11.9 Status: Chronic (5) Anemia ICD Code: D64.9 Status: Chronic (6) End stage renal failure on dialysis ICD Code: N18.6 Status: Chronic (7) Aortic valve stenosis, critical ICD Code: I35.0 Status: Acute (8) Mitral valve stenosis ICD Code: I05.0 Status: Acute (9) Mitral valve regurgitation ICD Code: I34.0 Status: Acute (10) Esophagitis, [place] grade B ICD Code: K20.8 Status: Acute (11) Gastritis ICD Code: K29.70 Status: Acute (12) Dysphagia ICD Code: R13.10 Status: Acute Assessment and Plan - Left femoral neck fracture status post mechanical fall - surgery was placed on hold due to preop echocardiogram showing critical aortic stenosis, severe mitral regurg and question of vegetation on the mitral valve. Endocarditis has now been ruled out per infectious disease. I spoke with orthopedic surgery Dr. Riley today and with Dr. dewey cardiology previously. Patient is very high risk for surgery given the critical aortic valve stenosis. Dr. Riley is agreeable to proceed with surgery pending anesthesiology clearance as long as the patient understands the risks. I will obtain CT surgery opinion as to the patient's eligibility for valve surgery and if so the timing. I discussed with CT surgery Dr. Moy who is on-call and has agreed to see the patient in consultation to provide his opinion. It is not clear to me if the patient grasps the complexity of his case to the level needed to make informed decision, although I did attempt to explain to him that the risk of proceeding with surgery for the femur in the setting of severe aortic stenosis places him at risk for however not proceeding with fixing the femur would confine him to being nonambulatory with a poor prognosis as well. Patient asks me "what do you want me to do?" He is agreeable to me contacting his family member who is his brother Fernando at [phone], however there was no answer and the voice message box was full. I will consider palliative care consultation for second opinion on the degree of patient's capacity to make medical decisions as well as to help ensure the patient and his family thoroughly understand the risks/benefits of his options, after we get input from CT surgery and anesthesia. -Critical aortic stenosis, mod-severe MV regurg - s/p DAISY, CT surgery consulted. As part of his preop workup he did undergo a 2-D echo which was remarkable for aortic stenosis and a possible mitral valve vegetation. Patient underwent DAISY which did show critical aortic valve stenosis, moderate to severe mitral valve regurgitation, with flail motion of the posterior leaflet of the mitral valve due to rupture one or more cords, appearance was more consistent with sclerotic valve with flail posterior leaflet involving the septal valvular mitral apparatus however a vegetation could not be completely excluded. Blood cultures have been negative for 5 days, ruled out for IE. D/w Dr. Dove yesterday. CT surgery consulted for opinion on valves. -Anemia of CKD - stable. Epogen per nephrology. Dysphagia - EGD 05/10 showed class B esophagitis, erythematous gastritis and inflammation in the duodenal bulb. Dysphagia has improved, tolerating mechanical soft diet with thin liquids. -ESRD- cont HD per nephrology. T, Th, Sat. (followed by Dr. Felix Antony). -Hyperkalemia - resolved today. Schizophrenia- appears compensated at this time. Cont Geodon, fluoxetine and divalproex as per outpatient doses. -DM-The pt is on an insulin sliding scale as an outpt. A1c is 5.8%. Cont SSI. PPx: Heparin SQ. Problem Qualifiers (1) Femoral neck fracture: Qualified Code: S72.002A - Closed fracture of neck of left femur, initial encounter (2) Fall: Qualified Code: W19.XXXA - Fall, initial encounter Marcia Marks MD May 15, 2016 15:32
[2016-05-15] MEDS: FLUoxetine HCL 20 MG CAP PO SCH (21:48)
[2016-05-15 23:51] LABS: Q FEVER PHASE I AB IGM NEGATIVE (())
[2016-05-16] MEDS: LACTATED RINGER'S 1000 ML IV SCH (00:30)
[2016-05-16 00:40] VITALS: BP 120/60; PULSE 98; RESP 19; TEMP 98.8; O2SAT 94
[2016-05-16 04:39] VITALS: BP 126/69; PULSE 95; RESP 19; TEMP 98.4; O2SAT 95
[2016-05-16] MEDS: HEPARIN SODIUM - SQ 10,000 UNITS/ML VIAL SQ SCH ×3 (06:00→21:21)
[2016-05-16] MEDS: INSULIN ASPART SUPPLEMENTAL SCALE SQ SCH ×4 (07:00→21:20)
[2016-05-16 08:00] VITALS: BP 129/66; PULSE 95; RESP 18; TEMP 95.9; O2SAT 97
[2016-05-16] MEDS: METOPROLOL TARTRATE 25 MG TAB PO SCH ×2 (08:03→21:16)
[2016-05-16] MEDS: DOCUSATE SODIUM 100 MG CAP PO SCH ×2 (08:06→21:15)
[2016-05-16] MEDS: ZIPRASIDONE HCL 80 MG CAP PO SCH ×2 (08:06→21:15)
[2016-05-16] MEDS: SEVELAMER CARBONATE 800 MG TAB PO SCH ×3 (08:06→16:59)
[2016-05-16] MEDS: SENNOSIDES 8.6 MG TAB PO SCH (08:07)
[2016-05-16] MEDS: DIVALPROEX SODIUM E.R. 500 MG TAB PO SCH ×2 (08:07→21:15)
[2016-05-16] MEDS: PANTOPRAZOLE SOD 40 MG DELAYED RELEASE TAB PO SCH (08:07)
[2016-05-16] MEDS: LACTULOSE SYRUP 20 GM/30 ML CUP PO SCH (08:07)
[2016-05-16] MEDS: SODIUM CHLORIDE 0.9% FLUSH 5 ML FLUSH IVF PRN (08:08)
[2016-05-16] MEDS: ZIPRASIDONE HCL 20 MG CAP PO SCH ×2 (08:10→21:15)
--- NOTE | 2016-05-16 08:36 | HHI.NPPN ---
Subjective General Problems: Anemia, Hypertension Renal Failure: Chronic, End Stage Renal Disease Interval History patient was seen and examined. Notes were reviewed. Currently he is awaiting clearance from ID and Cardiology for hip surgery. CT surgery also has been consulted. Review of Systems General Constitutional: Fatigue Musculoskeletal MS: Pain/Stiffness Objective Data Data 05/15/16 05/16/16 19:00 07:00 Intake Total 360 ml Balance 360 ml Intake Oral 360 ml # Voids 3 # Bowel Movements 0 Vital Signs Date Time Temp Pulse Resp B/P Pulse Ox O2 Delivery O2 Flow Rate FiO2 05/16/16 08:00 95.9 95 18 129/66 97 05/16/16 04:39 98.4 95 19 126/69 95 05/16/16 00:40 98.8 98 19 120/60 94 05/15/16 19:00 98.1 89 16 115/70 97 05/15/16 17:00 124/64 05/15/16 15:50 98.1 82 18 90/54 96 05/15/16 11:48 95.7 72 18 94/55 95 05/15/16 10:50 Room Air -: 05/12/16 0549 05/15/16 0533 Physical Exam General Appearance: Well Nourished, No Acute Distress, Comfortable Throat Throat Exam: Oral Mucosa [place] & Moist Pulmonary Resp Exam: Clear Bilaterally, Breath Sounds Equal Cardiology CV Exam: Normal Sinus Rhythm, Murmur Gastrointestinal/Abdomen GI Exam: Soft, Non-Tender, Bowel Sounds Present Musculoskeletal MS Exam: Joints Intact, Normal Tone Integumentary Skin Exam: Warm, Dry Extremeties Extremities Exam: Trace Edema Neurologic Neuro Exam: Alert, Awake, Oriented Psychiatric Psych Exam: Appropriate Responses Assessment/Plan Discussed Condition With: Patient Assessment Summary: Anemia of CKD, Hypertension, End Stage Renal Disease Problem List: (1) ESRD (end stage renal disease) Plan: We will continue HD TTS. low K, high protein diet Continue Renvela for metabolic bone disorder, monitor phosphorus periodically. Phosphorus remains high. Changed diet to renal diet with no protein restriction. Historically, patient has been non compliant with diet and medications, at least partially due to his bipolar illness. (2) Femoral neck fracture Plan: Seen by Orthopedics. Surgery on hold at this point due to cardiac issues including possible endocarditis. needs ID clearance (3) Murmur Plan: Last echocardiogram recorded was in 2008, with no acute abnormality. He recently had a mildly positive stress test which was medically managed by cardiology. Echocardiogram revealed critical with possible vegetation, DAISY taken he will need eventual valve replacement he denies hx of rheumatic fever of IVDA Bartonella and Coxiella serologies pending, results should be back , if negative cleared by ID Rocephin was stopped needs cardiology and ID clearance; may be possible to treat prophylactically with Doxycycline? (4) Hypertension Plan: continue home medications. Monitor. (5) Anemia Plan: epogen with HD Problem Qualifiers (1) Femoral neck fracture: Qualified Code: S72.002A - Closed fracture of neck of left femur, initial encounter Felix Andersen MD May 16, 2016 08:36
[2016-05-16] MEDS: EPOETIN ALFA 10,000 UNITS/ML VIAL IV PRN (10:30)
[2016-05-16] MEDS: GELATIN 12 MM/7 MM FOAM TOP PRN (10:31)
[2016-05-16 12:48] VITALS: BP 107/55; PULSE 101; RESP 18; TEMP 97.3; O2SAT 95
--- NOTE | 2016-05-16 15:09 | PD.CONS ---
Consult Service Palliative Care Consult Requested By Dr. Marks . Primary Care Physician Felix Antony MD . Reason for Consultation a. To assist with evaluation and management of symptoms including: hip pain b. To assist medical decision maker(s) with: better understanding of current medical conditions; weighing benefits/burdens of medical treatment options; making medical treatment decisions. . HPI History of Present Illness Mr. Herron is a 55-year-old male long-term resident of [facility] with a known history of schizophrenia; diabetes mellitus; end-stage renal disease on hemodialysis; coronary artery disease status post non-ST elevation myocardial infarction; and Reza's esophagus who suffered a slip and fall on 05/07/2016 at the facility and suffered a left femoral head fracture. The patient was brought to [facility] Emergency Department or his primary complaint was left hip pain which was constant but much worse with movement. The pain radiated down his left leg. Pain severity was rated as 8 out of 10. The patient has a history of schizophrenia dating back to the 1980s. He had multiple psychiatric hospitalizations. He has been a resident at [facility] since 02/10/2009. Reportedly, at [facility] he is ambulatory without assistive device. He takes care of his activities of daily living. His schizophrenia has been reasonably well-controlled. The patient reports that the fall occurred because he was wearing socks or much too big for him and he ended up tripping over the socks. Mr. Herron has a long history of diabetic kidney disease. He has been on 3 day per week dialysis for approximately 6-7 years. He reports that he tolerates the dialysis fine. Vital signs in the emergency department were as follows: Temperature 98.4; pulse 112; respiratory rate 20; blood pressure 140/58; pulse oximetry 98% on room air Examination by the emergency meat department manager following: The examination was normal other than tenderness overlying the region of the left greater trochanter. Initial diagnostic testing revealed the following: * CBC showed WBC 10.7; Reglan 9.7; platelet count 230 * Coagulation profile showed PT 12.2; INR 1.1; PTT 27.1 * Chemistry panel was remarkable for a BUN of 84; creatinine 9.48; GFR 6. Glucose is 166. Calcium 9.7. * Liver function testing showed total bilirubin 0.3; AST 12; ALT 20; alkaline phosphatase 175; protein 7.0; albumin 3.1 * Chest x-ray revealed cardiomegaly with atelectasis versus mild consolidation in the left midlung. * Chest x-ray of the left hip/pelvis revealed a left femoral neck fracture The patient was admitted to the hospitalist service. Orthopedics and nephrology were consulted. Hospitalist noted a heart murmur and reviewed records that showed a mildly positive stress test. An echocardiogram back in 2008 appeared normal. An echocardiogram performed on 05/07/16 during this hospitalization revealed "critical" aortic stenosis. There was also a moderately to severely calcified mitral annulus with a possible vegetation on the mitral valve. Cardiology and infectious disease were consulted. Infectious disease did not feel there was a vegetation present. Cultures were negative so it was not felt the patient had endocarditis. Transesophageal echo did not show any evidence of vegetation. The abnormality seen on the initial echocardiogram was felt to be due to flail motion involving the posterior leaflet due to rupture of one or more cords in the mitral valve. Patient confided that he did have occasional chest pains while living in his nursing facility. However, these were more likely to happen at rest and with activity. He reported occasional shortness of breath. He said that while engaging in physical therapy exercises, the therapists would apply nasal cannula oxygen. There've been no palpitations. Surgery in the left hip has been postponed as the cardiac status was being evaluated. It was also felt imperative to identify an appropriate healthcare decision maker to assist the patient given his long-standing psychiatric disease. The patient complained of dysphagia during this admission as well. As he has a history of Reza's esophagus GI was consulted. Patient underwent EGD on . Esophagitis and gastritis were noted. Biopsy confirmed the Reza's esophagus with some metaplasia. No joana cancerous cells were noted. Patient currently complains only of some difficult swallowing tablets and Soles for medication purposes. He does not report difficulty with consuming food. . Function/Cognitive Trajectory As noted above, patient has been a resident of [facility] since . He has been receiving thrice weekly dialysis treatments for approximately 6-7 years.. At his nursing facility, patient reports that he has been ambulating without assistive device. There has been no significant weight gain or weight loss. He performs all of his own ADLs. He reports that his schizophrenia has been reasonably well-controlled on his current medication regimen. There've been no recent hallucinations or delusions. He denies significant anxiety or depression. Family reports that he is somewhat reluctant to participate in physical therapy. He reported occasional chest pains which she thought were more likely to occur at rest and with activity. He could not further quantify or qualify the use. He did not radiate. He reports occasional shortness of breath. He told me specifically that when trying to participate in physical rehabilitation at his nursing facility, the physical therapists would put him on oxygen via nasal cannula. . Review of Systems Constitutional: COMPLAINS OF: Fatigue, Change in appetite, Pain, Generalized weakness, DENIES: Fever, Weight gain, Weight loss, Chills, Dizziness Endocrine: DENIES: Polydipsia, Polyuria Eyes: DENIES: Eye pain, Vision loss, Double Vision Ears, nose, mouth, throat: DENIES: Tinnitus, Hearing loss, Throat pain, Running Nose, Epistaxis Respiratory: COMPLAINS OF: Shortness of breath, DENIES: Apneas, Cough, Snoring , Hemoptysis, Sputum production Cardiovascular: COMPLAINS OF: Chest pain, Dyspnea on Exertion, DENIES: Palpitations, Syncope Gastrointestinal: COMPLAINS OF: Difficulty Swallowing, Dyspepsia or heartburn, DENIES: Black stools, Bloody stools, Constipation, Diarrhea, Nausea, Vomiting , Anorexia Genitourinary: DENIES: Urinary frequency, Urinary incontinence, Urgency, Hematuria, Dysuria Musculoskeletal: COMPLAINS OF: Joint pain, DENIES: Back pain, Neck pain Integumentary: COMPLAINS OF: Rash Hematologic/Lymphatics: DENIES: Bruising, Lymphadenopathy Neurologic: DENIES: Abnormal gait, Headache, Localized weakness, Paresthesias, Seizures, Tremor, Poor Balance Psychiatric: DENIES: Anxiety, Confusion, Depression, Hallucinations, Agitation , Suicidal Ideation Past Family Social History Coded Allergies: Vee (Verified Adverse Reaction, Unknown, PT DENIES ALLERGY, 05/07/16) Pt denies allergy Past Medical History ESRD on HD Reza's esophagus Diabetes mellitus Schizophrenia Aortic stenosis Coronary artery disease status post non-ST elevation myocardial infarction Anemia secondary to chronic kidney disease Hyperparathyroidism Hypertension Seizure disorder? . Past Surgical History Left upper extremity AV fistula placement for dialysis EGD Esophageal ablation for Reza's esophagus Skin cancer removal from the left forehead Tonsillectomy . Reported Medications Prehospitalization medications at the nursing facility included the following: Renvela (Sevelamer Carbonate) 800 Mg Tab 800 Mg PO TIDAC 30 Days Metoprolol Tartrate 25 Mg Tab 12.5 Mg PO Q12HR 30 Days Prozac (Fluoxetine HCl) 20 Mg Cap 20 Mg PO HS Ibuprofen 200 Mg Tab 200 Mg PO Q6H PRN Geodon (Ziprasidone) 80 Mg Cap 80 Mg PO BID -- Take 1 capsule (80mg) with 20mg capsule for a total dose of 100mg Aracely-Annelise (B-Complex W/ C & Folic Acid) 1 Tab 1 Tab PO DAILY Depakote ER (Divalproex Sodium) 500 Mg Prema 500 Mg PO BID Novolog Inj (Insulin Aspart) 1,000 Unit/10 Ml Vial 0 SQ DIRECTED -- Sliding Scale as directed. Tums (Calcium Carbonate (Antacid)) 500 Mg Chew 500 Mg PO TIDPC PRN Aspirin 81 Mg Tabdr 81 Mg PO DAILY Tylenol (Acetaminophen) 325 Mg Tab 650 Mg PO Q6H PRN . Current Medications Medications (Trade) Dose Ordered Sig/Diane Route Start Time Stop Time Status Last Admin (NS Flush) 2 ml UNSCH PRN IVF 05/07/16 02:30 05/16/16 08:08 (Tylenol) 650 mg Q4H PRN PO 05/07/16 03:45 (Zofran Inj) 4 mg Q6H PRN IVP 05/07/16 03:45 05/09/16 00:04 (Milk Of Magnesia Liq) 30 ml Q12H PRN PO 05/07/16 03:45 (Tylenol) 650 mg Q6H PRN PO 05/07/16 03:45 (Dilaudid Pf Inj) 0.5 mg Q3H PRN IV 05/07/16 03:45 05/15/16 05:02 Naloxone HCl 0.4 mg 0.4 mg UNSCH PRN IV 05/07/16 03:45 (NS 1000 ml Inj) 1,000 ml @ 0 mls/hr Q0M PRN IV 05/07/16 09:06 Heparin Sodium (Porcine) 8000 units 8,000 units UNSCH PRN IVF 05/07/16 09:15 Sodium Chloride 1,000 ml @ 200 mls/hr Q5H PRN IV 05/07/16 09:06 05/09/16 15:25 (NS 1000 ml Inj) 1,000 ml @ 0 mls/hr Q0M PRN IV 05/07/16 09:06 (Mannitol Inj) 12.5 gm UNSCH PRN IV 05/07/16 09:15 (Albumin 25% Inj) 25 gm UNSCH PRN IV 05/07/16 09:15 (NS Flush) 5 ml UNSCH PRN IVF 05/07/16 09:15 (Heparin Inj) UNSCH PRN .XX 05/07/16 09:15 (Gentamicin (Dialysis) Inj) 20 mg UNSCH PRN IV 05/07/16 09:15 (Zofran Inj) 4 mg UNSCH PRN IV 05/07/16 09:15 05/07/16 22:47 (Tylenol) 650 mg UNSCH PRN PO 05/07/16 09:15 (Benadryl) 25 mg UNSCH PRN PO 05/07/16 09:15 (Nitrostat Sl) 0.4 mg UNSCH PRN SL 05/07/16 09:15 (Catapres) 0.1 mg UNSCH PRN PO 05/07/16 09:15 (Epogen Inj) 10,000 units UNSCH PRN IV 05/07/16 09:15 05/16/16 10:30 (Gelfoam 12 Mm/7 Mm Top) 1 foam UNSCH PRN TOP 05/07/16 09:15 05/16/16 10:31 (Roxicodone) 10 mg Q4H PRN PO 05/07/16 12:00 05/11/16 13:23 (Roxicodone) 5 mg Q4H PRN PO 05/07/16 12:00 05/16/16 12:48 (Colace) 100 mg BID PO 05/07/16 21:00 05/16/16 08:06 (Senokot) 17.2 mg DAILY PO 05/08/16 09:00 05/16/16 08:07 (Geodon) 80 mg BID PO 05/07/16 21:00 05/16/16 08:06 (Depakote Er) 500 mg BID PO 05/07/16 13:00 05/16/16 08:07 (PROzac) 20 mg HS PO 05/07/16 21:00 05/15/16 21:48 (Lopressor) 12.5 mg Q12HR PO 05/07/16 21:00 3/22/17 21:48 Ziprasidone 20 mg 20 mg BID PO 05/07/16 21:00 05/16/16 08:10 (Lr 1000 ml Inj) 1,000 ml @ 30 mls/hr Q24H IV 05/10/16 00:30 (Lactulose Liq) 30 ml DAILY PO 05/10/16 09:00 05/16/16 08:07 (Heparin Inj) 5,000 units Q8HR SQ 05/10/16 14:00 05/16/16 12:47 (Protonix) 40 mg DAILY PO 05/14/16 09:00 05/16/16 08:07 (Renvela) 2,400 mg TIDAC PO 05/15/16 12:00 05/16/16 12:46 . Family History * The patient's father in December 2015 from a myocardial infarction * The patient's mother when the patient was quite young from breast cancer * The patient has a brother and sister who are alive and well . Substance Use Tobacco: No history of abuse Alcohol: No history of abuse Prescription med abuse: No history of abuse Illicits: No known use of illicits . Psychosocial History Patient was born in [facility]. He moved to [place] when he was 6 years old The patient completed high school and attended [employer] on a [employer] scholarship. He received a business degree. 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 Medical records suggest that the patient was first diagnosed with schizophrenia back in the 1980s. There were multiple hospitalizations in the early 1999s. He has required at least assisted living since around 2002. He has been on Social Security disability for approximately 14 years. The patient was never . He has no children. The patient's mother when he was quite young. The patient's father in December 2015 for myocardial infarction. The patient has a brotherTommyshe lives locally and teaches tennis. He also has a sister who lives in [place]. . Spiritual/Cultural Factors The patient identifies himself as a Adventism. He does not belong to any particular local buddhist. He would appreciate visits from the hospital hydration plant operator. . Living Will: Copy in medical record Health Care Surrogate: Copy in medical record Durable Power of Manager Multicultural: Copy in medical record Date completed: The patient has DURABLE POWER OF CHARGE PREPARATION TECHNICIAN for healthcare documents and a living will dated 01/27/2008 scanned into the electronic medical record. There is a separate designation of healthcare surrogate document dated 2016 that is in the paper chart. . Health Care Surrogate(s): The DURABLE POWER OF CHARGE PREPARATION TECHNICIAN for healthcare documents from 2007 with the primary is the patient's fatherPapa Herron (now ). The alternate is the patient's sisterSherri Sin. The health care surrogate designation document dated 03/25/2016 with the primary surrogate as the patient's brother Fernando Herron. The alternate is the patient's sister Sherri Sin. . Documented care wishes: The patient has completed a standard [place] living will. It indicates that if he is ever found to have a terminal or end-stage condition or is in a persistent vegetative state, he would not want life prolonging procedures. . Today's verbally stated goals: The patient feels somewhat overwhelmed by the decision making he faces. He would like decision-making going forward to be shared decision making with either his sister or his brother. . Family/friends goals: I have spoken to the patient's sisterSherri Sin. She is certainly willing to serve as the patient's health care surrogate and assist the patient with shared decision-making. She is looking forward to the doctor's final recommendations and to receive true informed consent. . Ethical and Legal Issues Patient appears to have adequate insight into his own medical condition. He is able to accurately describe his medical problems. He is able to tell me the doctors concerns about his heart and how those concerns elevate the risk for surgery. Nevertheless, he admits to being frightened and somewhat overwhelmed by the decision-making. He requests that either his brother or sister assist him with shared decision-making for major decisions.. . Physical Exam Vital Signs Date Time Temp Pulse Resp B/P Pulse Ox O2 Delivery O2 Flow Rate FiO2 05/16/16 12:48 97.3 101 18 107/55 95 05/16/16 08:00 95.9 95 18 129/66 97 05/16/16 04:39 98.4 95 19 126/69 95 05/16/16 00:40 98.8 98 19 120/60 94 05/15/16 19:00 98.1 89 16 115/70 97 05/15/16 17:00 124/64 05/15/16 15:50 98.1 82 18 90/54 96 . 05/15/16 05/16/16 19:00 07:00 Intake Total 360 ml Balance 360 ml Intake Oral 360 ml # Voids 3 # Bowel Movements 0 . Exam CONSTITUTIONAL/GENERAL: This is an adequately nourished patient, in no apparent distress. He is conversational and answers questions appropriately. No evidence of pain while lying still. TUBES/LINES/DRAINS: Dialysis fistula left upper extremity; peripheral IV; SCDs SKIN: No jaundice. There are numerous erythematous lesions on both upper extremities. This may be actinic damage. No other wounds seen anteriorly. Skin temperature appropriate. Not diaphoretic. HEAD: Atraumatic. Normocephalic. EYES: Pupils equal and round and reactive. Extraocular motions intact. No scleral icterus. No injection or drainage. Fundi not examined. ENT: Hearing grossly normal. Nose without bleeding or purulent drainage. Throat without visible erythema, exudates, masses, or lesions. NECK: Trachea midline. Supple, nontender. No palpable thyroid enlargement or nodularity. CARDIOVASCULAR: Regular rate and rhythm without murmurs, gallops, or rubs. No JVD. Peripheral pulses symmetric. RESPIRATORY/CHEST: Symmetric, unlabored respirations. Clear to auscultation. Breath sounds equal bilaterally. No wheezes, rales, or rhonchi. GASTROINTESTINAL: Abdomen soft, non-tender, nondistended. No hepato-splenomegaly , or palpable masses. No guarding. Bowel sounds present. GENITOURINARY: Without palpable bladder distension. MUSCULOSKELETAL: Extremities without clubbing, cyanosis, or edema. Tenderness over left greater trochanter area. Arteriovenous shunt for dialysis and left upper extremity. No calf tenderness. No mottling or clubbing. LYMPHATICS: No palpable cervical or supraclavicular adenopathy. NEUROLOGICAL: Awake and alert. Motor and sensory grossly within normal limits. Follows commands. Cognitively sharp. Moves all extremities (except he guards the left lower extremity).. PSYCHIATRIC: No obvious anxiety/depression. Slightly blunted affect. No apparent hallucinations or other psychotic thought process. . Diagnostic Tests Laboratory Laboratory Tests Test 05/14/16 05/15/16 05:21 05:33 Sodium Level 132 MEQ/L 136 MEQ/L (136-145) (136-145) Potassium Level 5.8 MEQ/L 4.2 MEQ/L (3.5-5.1) (3.5-5.1) Chloride Level 93 MEQ/L 91 MEQ/L (98-107) (98-107) Carbon Dioxide Level 21.8 MEQ/L 28.4 MEQ/L (21.0-32.0) (21.0-32.0) Anion Gap 17 MEQ/L (5-15) 17 MEQ/L (5-15) Blood Urea Nitrogen 121 MG/DL 89 MG/DL (7-18) (7-18) Creatinine 10.93 MG/DL 8.13 MG/DL (0.60-1.30) (0.60-1.30) Estimat Glomerular Filtration 5 ML/MIN (>89) 7 ML/MIN (>89) Rate Random Glucose 130 MG/DL 133 MG/DL (74-106) (74-106) Calcium Level 10.3 MG/DL 10.3 MG/DL (8.5-10.1) (8.5-10.1) Magnesium Level 2.3 MG/DL (1.5-2.5) Phosphorus Level 8.8 MG/DL (2.5-4.9) Albumin 2.0 GM/DL (3.4-5.0) . Result Diagram: 05/12/16 0549 05/15/16 0533 Imaging Last Impressions Hip and Pelvis X-Ray 05/07/16220 Signed Impressions: Service Date/Time: Saturday, May 07, 2016 02:46 - CONCLUSION: Left femoral neck fracture. Rayo Cespedes MD Chest X-Ray 05/07/16220 Signed Impressions: Service Date/Time: Saturday, May 07, 2016 02:46 - CONCLUSION: 1. Atelectasis versus mild consolidation in the left midlung. 2. Mild chronic cardiac silhouette enlargement. Rayo Cespedes MD . Procedures * Hemodialysis . Patient/Family Conference Present at Family Conference: I spoke with the patient at bedside for over 30 minutes. I spoke with the patient's sisterSherri Sin -- by telephone for approximately 25 minutes I spoke with the patient's brother -- Fernando -- by telephone for about 10 minutes . Family Conference Time (mins): 55 Family Conference Location: Bedside, Telephone Issues Discussed: * Additional medical, psychosocial, and spiritual history * Patients general health, functional status, and cognitive changes in the months leading up to the current hospitalization * Patient/family understanding of the current medical problems * Patient/family understanding of prognosis * Patients goals of care as best understood from advance directives and/or conversations and/or values * Current medical treatment options and benefits/burdens of those options * Questions answered to the best of my ability * Palliative care contact information provided . Assessment and Plan Disease Oriented Problem List: (1) Femoral neck fracture Comment: Left side.. (2) ESRD (end stage renal disease) Comment: Has been receiving hemodialysis approximately 6-7 years. . (3) Dependent on hemodialysis (4) Aortic valve stenosis, critical (5) Mitral valve stenosis (6) Mitral valve regurgitation (7) Esophagitis, [place] grade B (8) Barretts esophagus Comment: Underwent EGD on 05/10/16. No cancer cells seen on biopsy. . (9) Anemia (10) DM (diabetes mellitus) (11) Hyperlipidemia (12) Schizophrenia Comment: History going back to the 1980s. History of multiple hospitalizations. Symptoms appear well-controlled at this time. . 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 His current medication regimen will bring pain levels down to approximately 7. He indicates he is satisfied with this. Patient does have a history of occasional chest pains. However, these most often happen at rest and do not radiate. No other known pain syndromes. . Pertinent Non-Medical Issues Psychosocial: Spiritual: Legal: Ethical issues impacting care: Important Contacts * Sherri Merrick (sister and healthcare power of personal injury attorney) H: [phone] C : [phone] * Fernando Germaine (brother and healthcare surrogate) [phone] . Prognosis Patient has underlying schizophrenia, ES renal disease on hemodialysis, and Reza's esophagus. He has been a nursing facility resident for over 7 years due to his mental health issues. He has fractured his hip and pre-op w/u has revealed critical aortic stenosis. In addition to the risks of surgery, his sister reports that he has a history of not being very compliant with physical therapy. We will . Code Status: Full Code Plan == Code Status: FULL CODE == Decision Making: Patient appears to have a reasonably good understanding of his medical condition. He is able to tell me about his fracture and is able to tell me that he has a heart problem that makes surgery more difficult. He admits to feeling overwhelmed and wants decision making to be shared. He is fine with either his sister or his brother helping him. They are each listed as surrogates on separate documents in his medical record. I have personally spoken with the patient's sister -- Sherri Sin -- who is happy to serve in this capacity. I have also spoken with brother -- Fernando- who also agrees to serve. The two speak frequently and our medical team can speak to either one for guidance. Per patient's preference, I would recommend "shared decision making " including patient and at least one of the people below for all major decisions * Sherri Sin (POA for health care / sister) H: [phone] C: * Fernando Herron (brother/ health care surrogate) [phone] == Goals of medical treatment: Though patient has been in a half-way setting for 7 years, his schizophrenia has been reasonably well controlled and he has been taking care of his own ADLs there. He has been tolerating dialysis and there has been no evidence of ongoing decline. At this point, patient and sister believe he would want to go forward with treatment. In other words, his current quality of life is worth fighting for. == Pain: He denies any pain syndromes prior to his fall and hip fracture. He currently has orders in place for PO oxycodone and parenteral hydromorphone for his hip pain. Per patient, orders are adequate. No further recommendations at this time. == Dysphagia: patient seems to have problems specifically with oral medication -- tabs and capsules. Denies problems with food. Has known Reza' s esophagus.. EGD on 05/10/16. Symptoms improved with PPI. No further recommendations at this time. == Once medical team has a consensus regarding recommended treatment , patient and his surrogate can be provided with informed consent, have questions answered , and go forward with procedures if desired. == Palliative care will continue to follow to assist with symptom management and to further clarify goals of care as the clinical course evolves . Time Spent Total Floor Time (mins): 90 (Total floor time included chart review; pt exam; bedside conference with patient ; telephone conversations with sister and separately with brother; and collaboration with Dr. Marks. ) Face to Face Time (mins): 30 >50% Counseling/Coord of Care: Yes Thank you for the opportunity to participate in the care of Mr. Herron. . Attestation To help prompt me to consider important information that might be impacting today's encounter and assessment, information from prior notes written by myself or my colleagues may have been "brought forward" into today's note. My signature on this note, however, is an attestation that I personally performed the exam, history, and/or decision-making noted today, and, unless otherwise indicated, the interactions with patient, family, and staff as well as the review of records all occurred today. I also attest that the listed assessment and stated plan reflect my best clinical judgment today based on the combination of historical information, prior notes, and today's exam/ interactions. When time spent is documented, it refers only to time spent today by the signer, or if indicated, combined time spent today by collaborating physician/nurse practitioner. . Reji Martinez MD May 16, 2016 15:09
[2016-05-16 16:00] VITALS: BP 137/76; PULSE 110; RESP 18; TEMP 98; O2SAT 96
--- NOTE | 2016-05-16 19:00 | MB ---
cc: ELIZABETH BRADSHAW MD DATE OF CONSULTATION 05/16/16 1958 HISTORY OF PRESENT ILLNESS A 55-year-old male known history of end-stage renal disease, schizophrenia who resides in a rehab shelter facility for the last seven years. He apparently fell, was wearing some long socks and tripped. He fell on his left side, developed severe left hip and leg pain. He was brought into the emergency room, showed a left femoral hip fracture. Orthopedic was consulted. He apparently required a cardiology clearance. He had had a positive stress test a couple years ago and was considered a moderate risk. He also had heart murmur on exam. His last echo was in 2008 which did not show any significant abnormalities. He underwent echocardiogram that was read by Dr. Garcia showing critical aortic stenosis in addition to a mobile echo density on the posterior mitral valve on the left side. The patient denied having any fevers or chills. The white count was mildly elevated at 12. He underwent transesophageal echocardiogram which showed no evidence of vegetation, critical aortic stenosis with aortic valve area 0.5, peak gradient of 113. The patient also had a moderately to severe calcified annulus on the mitral valve, flail motion involving the posterior leaflet due to rupture of one or more of the cords consistent with sclerotic valve showing moderate to severe regurgitation. The tricuspid valve was unremarkable with mild regurgitation. No evidence of pericardial effusion. We were consulted to evaluate for mitral and aortic valve replacement. The patient apparently was cleared by Dr. Garcia for the femoral hip fracture repair. However, there was some confusion whether or not he needed to have the cardiac surgery prior to having his hip repaired. PAST MEDICAL HISTORY At this time the patient's past medical history is 1. End-stage renal disease on dialysis Friday, and Friday. 2. Seizure disorder 3. Reza's esophagus. 4. Recently underwent an EGD which showed gastritis, esophagitis. 5. History of ___ ablation x2 6. History of diabetes mellitus, 7. Schizophrenia PAST SURGICAL HISTORY 1. EGD 2. Left upper AV fistula graft 3. Skin cancer removed from his forehead ALLERGIES No known allergies. MEDICATIONS Home meds include 1. Tylenol 2. Tums 3. Depakote. 4. Prozac. 5. Geodon. 6. Metoprolol. 7. Zantac. 8. NovoLog Insulin. 9. Aspirin. 10. Renvela. FAMILY HISTORY Denies any history of premature coronary disease or sudden . SOCIAL HISTORY Resides in a shelter facility. Denies alcohol, tobacco or drug use. REVIEW OF SYSTEMS 12-point system performed and negative unless otherwise noted in the history of present illness PHYSICAL EXAMINATION VITAL SIGNS: Blood pressure 107/60, heart rate of 100, temperature max 97.3. GENERAL: Patient is awake, alert in no acute distress HEENT: Head is normocephalic, atraumatic. Pupils equal and reactive. Oral mucosa pink, moist. NECK: Supple. No JVD. CARDIAC: Heart sounds S1-S2, slightly irregular. There is a grade 3/6 crescendo decrescendo murmur at the right sternal border. ABDOMEN: Soft, nontender. No masses or organomegaly. EXTREMITIES: Tenderness to the left hip area. He has good distal pulses. LABORATORY FINDINGS Hemoglobin 10, hematocrit 31, white cell count 9.9, platelet count 267. Sodium 136, potassium 4.2, BUN of 89, creatinine 8.13, INR 1.1. Urine is unremarkable. IMAGING STUDIES Chest x-ray - Some atelectasis and left lower lung. CARDIOLOGY STUDIES EKG - Sinus tach, first degree AV block, right bundle branch block, some LVH. IMPRESSION This is a 55-year-old male with a left femoral hip fracture that was cleared by Dr. Garcia, cardiology, to undergo hip repair. In the meantime, he was found to have severe aortic stenosis and moderate to severe mitral regurgitation. No evidence for endocarditis or vegetation. At this time, the patient is very deconditioned and would be very difficult to recover from cardiovascular surgery due to sternal incision and recovery. Recommend that patient would still need to undergo cardiac catheterization prior to surgery. Recommend that his hip be repaired and that the patient can follow up with Dr. Garcia as an outpatient for heart catheterization and we will be glad to see him in our office to discuss repair and replacement of the mitral valve and the aortic valve at that time. Dictated by DAVY Ovalles Elizabeth BELL /2:53 PM /12:45 PM
[2016-05-16 20:27] VITALS: BP 115/62; PULSE 107; RESP 20; TEMP 98.3; O2SAT 94
[2016-05-16] MEDS: FLUoxetine HCL 20 MG CAP PO SCH (21:15)
--- NOTE | 2016-05-16 23:35 | HHI.PR ---
Subjective Remarks Late entry pt seen at 7 p.m. Doing well, pain controlled. S/p dialysis today. Objective Vitals Vital Signs Date Time Temp Pulse Resp B/P Pulse Ox O2 Delivery O2 Flow Rate FiO2 05/16/16 20:27 98.3 107 20 115/62 94 05/16/16 16:00 98.0 110 18 137/76 96 05/16/16 12:48 97.3 101 18 107/55 95 05/16/16 08:00 95.9 95 18 129/66 97 05/16/16 04:39 98.4 95 19 126/69 95 05/16/16 00:40 98.8 98 19 120/60 94 I/O 05/15/16 05/15/16 05/15/16 05/16/16 05/16/16 05/16/16 07:00 15:00 23:00 07:00 15:00 23:00 Intake Total 480 ml 240 ml 120 ml 120 ml Output Total 2 ml Balance 478 ml 240 ml 120 ml 120 ml Intake Oral 480 ml 240 ml 120 ml 120 ml Output Urine Total 2 ml # Voids 1 2 2 # Bowel Movements 0 0 0 1 1 Result Diagram: 05/12/16 0549 05/15/16 0533 Objective Remarks GENERAL: Well-nourished, well-developed male pleasant patient. SKIN: Warm and dry. HEAD: Normocephalic. Oropharynx: Dry lips and mucous membranes. EYES: No scleral icterus. No injection or drainage. NECK: Supple, trachea midline. No JVD or lymphadenopathy. CARDIOVASCULAR: Regular rate and rhythm. 3/6 holosystolic murmur loudest at left sternal border. RESPIRATORY: Breath sounds equal bilaterally. Clear to auscultation anteriorly. No accessory muscle use on 2 L nasal cannula. GASTROINTESTINAL: Abdomen soft, non-tender, nondistended. EXTREMITIES: Trace pedal edema. NEUROLOGICAL: Awake, alert, and oriented. Somewhat flat affect. Procedures DAISY EGD A/P Problem List: (1) Femoral neck fracture ICD Code: S72.009A Status: Acute (2) Fall ICD Code: W19.XXXA Status: Acute (3) Schizophrenia ICD Code: F20.9 Status: Chronic (4) DM (diabetes mellitus) ICD Code: E11.9 Status: Chronic (5) Anemia ICD Code: D64.9 Status: Chronic (6) End stage renal failure on dialysis ICD Code: N18.6 Status: Chronic (7) Aortic valve stenosis, critical ICD Code: I35.0 Status: Acute (8) Mitral valve stenosis ICD Code: I05.0 Status: Acute (9) Mitral valve regurgitation ICD Code: I34.0 Status: Acute (10) Esophagitis, [place] grade B ICD Code: K20.8 Status: Acute (11) Gastritis ICD Code: K29.70 Status: Acute (12) Dysphagia ICD Code: R13.10 Status: Acute Assessment and Plan - Left femoral neck fracture status post mechanical fall - surgery was placed on hold due to preop echocardiogram showing critical aortic stenosis, severe mitral regurg and question of vegetation on the mitral valve. Patient is very high risk for surgery given the critical aortic valve stenosis. Appreciate CT surgery input, palliative care assistance for clarification of patient goals. Awaiting patient decision on proceeding with surgery. Discussed previously with Dr. Riley. Discussed with Dr. Moy and Dr. Martinez today. -Critical aortic stenosis, mod-severe MV regurg - s/p DAISY, CT surgery consulted. Patient not candidate for valve replacement until after recovery from hip surgery. D/w Dr. Moy. D/w Dr. dewey previously. -Anemia of CKD - stable. Epogen per nephrology. Dysphagia - EGD 05/10 showed class B esophagitis, erythematous gastritis and inflammation in the duodenal bulb. Dysphagia has improved, tolerating mechanical soft diet with thin liquids. -ESRD- cont HD per nephrology. T, Th, Sat. (followed by Dr. Felix Antony). -Hyperkalemia - resolved today. Schizophrenia- appears compensated at this time. Cont Geodon, fluoxetine and divalproex as per outpatient doses. -DM-The pt is on an insulin sliding scale as an outpt. A1c is 5.8%. Cont SSI. PPx: Heparin SQ. Problem Qualifiers (1) Femoral neck fracture: Qualified Code: S72.002A - Closed fracture of neck of left femur, initial encounter (2) Fall: Qualified Code: W19.XXXA - Fall, initial encounter Marcia Marks MD May 16, 2016 23:35
[2016-05-17] MEDS: LACTATED RINGER'S 1000 ML IV SCH (00:30)
[2016-05-17 00:37] VITALS: BP 92/51; PULSE 99; RESP 21; TEMP 98.8; O2SAT 95
[2016-05-17 04:40] VITALS: BP 87/52; PULSE 81; RESP 20; TEMP 97.2; O2SAT 93
[2016-05-17] MEDS: HEPARIN SODIUM - SQ 10,000 UNITS/ML VIAL SQ SCH ×3 (06:35→22:12)
[2016-05-17] MEDS: INSULIN ASPART SUPPLEMENTAL SCALE SQ SCH ×4 (07:00→22:14)
[2016-05-17 08:00] VITALS: BP 98/56; PULSE 85; RESP 16; TEMP 96.2; O2SAT 96
[2016-05-17] MEDS: METOPROLOL TARTRATE 25 MG TAB PO SCH ×2 (09:00→22:14)
[2016-05-17] MEDS: PANTOPRAZOLE SOD 40 MG DELAYED RELEASE TAB PO SCH (09:00)
[2016-05-17] MEDS: DOCUSATE SODIUM 100 MG CAP PO SCH ×2 (09:00→22:12)
[2016-05-17] MEDS: LACTULOSE SYRUP 20 GM/30 ML CUP PO SCH ×2 (09:00→10:30)
--- NOTE | 2016-05-17 10:12 | HHI.NPPN ---
Subjective General Problems: Anemia, Hypertension Renal Failure: Chronic, End Stage Renal Disease Interval History Pt is sleeping, no distress noted. No current nursing concerns. He has been cleared by cardiology. (Zahra Aguilar) Review of Systems General Constitutional: Fatigue (Zahra Aguilar) Musculoskeletal MS: Pain/Stiffness (Zahra Aguilar) Objective Data Data 05/16/16 05/17/16 18:59 06:59 Intake Total 480 ml Output Total 1300 ml Balance -1300 ml 480 ml Intake Oral 480 ml Hemodialysis 1300 ml # Voids 3 # Bowel Movements 1 1 Vital Signs Date Time Temp Pulse Resp B/P Pulse Ox O2 Delivery O2 Flow Rate FiO2 05/17/16 08:00 96.2 85 16 98/56 96 05/17/16 04:40 97.2 81 20 87/52 93 05/17/16 00:37 98.8 99 21 92/51 95 05/16/16 20:27 98.3 107 20 115/62 94 05/16/16 16:00 98.0 110 18 137/76 96 05/16/16 12:48 97.3 101 18 107/55 95 (Zahra Aguilar) -: 05/15/16 0533 Imaging Last Impressions Hip and Pelvis X-Ray 05/07/16220 Signed Impressions: Service Date/Time: Saturday, May 07, 2016 02:46 - CONCLUSION: Left femoral neck fracture. Rayo Cespedes MD Chest X-Ray 05/07/16220 Signed Impressions: Service Date/Time: Saturday, May 07, 2016 02:46 - CONCLUSION: 1. Atelectasis versus mild consolidation in the left midlung. 2. Mild chronic cardiac silhouette enlargement. Rayo Cespedes MD (Zahra Aguilar) Physical Exam General Appearance: Well Developed, Well Nourished, No Acute Distress, Comfortable ( Zahra Aguilar) Throat Throat Exam: Oral Mucosa [place] & Moist (Zahra Aguilar) Pulmonary Resp Exam: Clear Bilaterally, Breath Sounds Equal, No Distress (Zahra Aguilar) Cardiology CV Exam: Normal Sinus Rhythm, Murmur CV Remarks III/ systolic murmur, mitral area, radiates to left axilla (Zahra Aguilar) Gastrointestinal/Abdomen GI Exam: Soft, Non-Tender, Bowel Sounds Present (Zahra Aguilar) Musculoskeletal MS Exam: Joints Intact, Normal Tone (Zahra Aguilar) Integumentary Skin Exam: Clear, Warm, Dry, Intact (Zahra Aguilar) Extremeties Extremities Exam: No Edema, Pedal Pulses Palpable (Zahra Aguilar) Neurologic Neuro Exam: Alert, Awake, Oriented, Speech Clear, Moving All Extremities ( Zarha Aguilar) Psychiatric Psych Exam: Appropriate Responses (Zahra Aguilar) Assessment/Plan Discussed Condition With: Patient Assessment Summary: Anemia of CKD, Hypertension, End Stage Renal Disease Problem List: (1) ESRD (end stage renal disease) Plan: We will continue HD TTS. he had 1.3 L UF yesterday low K, high protein diet Continue Renvela for metabolic bone disorder, monitor phosphorus periodically. Renal diet with no protein restriction. Historically, patient has been non compliant with diet and medications, at least partially due to his bipolar illness. (2) Femoral neck fracture Plan: Seen by Orthopedics. cleared by cardiology, awaiting anesthesia evaluation (3) Murmur Plan: Last echocardiogram recorded was in 2008, with no acute abnormality. Echocardiogram revealed critical with possible vegetation, DAISY taken, unlikely endocarditis he will need eventual valve replacement CV surgery has recommended outpatient follow up, palliative has evaluated to clarify goals Rocephin was stopped (4) Hypertension Plan: continue home medications. Monitor. (5) Anemia Plan: epogen with HD (Zahra Aguilar) Problem List: (1) ESRD (end stage renal disease) Plan: We will continue HD TTS. he had 1.3 L UF yesterday low K, high protein diet Continue Renvela for metabolic bone disorder, monitor phosphorus periodically. Renal diet with no protein restriction. Historically, patient has been non compliant with diet and medications, at least partially due to his bipolar illness. (2) Femoral neck fracture Plan: Seen by Orthopedics. cleared by cardiology, awaiting anesthesia evaluation (3) Murmur Plan: Last echocardiogram recorded was in 2008, with no acute abnormality. Echocardiogram revealed critical with possible vegetation, DAISY taken, unlikely endocarditis he will need eventual valve replacement CV surgery has recommended outpatient follow up, palliative has evaluated to clarify goals Rocephin was stopped (4) Hypertension Plan: continue home medications. Monitor. (5) Anemia Plan: epogen with HD Plan patient was seen and examined. Agree with above assessment and plan. Awaiting surgery for hip fracture. (Felix Andersen MD) Problem Qualifiers (1) Femoral neck fracture: Qualified Code: S72.002A - Closed fracture of neck of left femur, initial encounter Zahra Aguilar May 17, 2016 10:12 Felix Andersen MD May 17, 2016 13:45
[2016-05-17] MEDS: SEVELAMER CARBONATE 800 MG TAB PO SCH ×3 (10:20→17:22)
[2016-05-17] MEDS: ZIPRASIDONE HCL 80 MG CAP PO SCH ×2 (10:25→22:12)
[2016-05-17] MEDS: ZIPRASIDONE HCL 20 MG CAP PO SCH ×2 (10:26→22:12)
[2016-05-17] MEDS: DIVALPROEX SODIUM E.R. 500 MG TAB PO SCH ×2 (10:27→22:12)
[2016-05-17] MEDS: SENNOSIDES 8.6 MG TAB PO SCH (10:48)
[2016-05-17 12:00] VITALS: BP_SYST 106; BP_SYST 97; BP_DIAS 54; BP_DIAS 71; PULSE 80; RESP 18; TEMP 97.2; O2SAT 93
--- NOTE | 2016-05-17 12:34 | HHI.PR ---
Subjective Remarks Patient doing well. Denies any pain. States he has not made up his mind about surgery yet, awaiting to hear input from his brother and sister. Objective Vitals Vital Signs Date Time Temp Pulse Resp B/P Pulse Ox O2 Delivery O2 Flow Rate FiO2 05/17/16 12:00 97.2 80 18 97/54 93 05/17/16 08:00 96.2 85 16 98/56 96 05/17/16 04:40 97.2 81 20 87/52 93 05/17/16 00:37 98.8 99 21 92/51 95 05/16/16 20:27 98.3 107 20 115/62 94 05/16/16 16:00 98.0 110 18 137/76 96 05/16/16 12:48 97.3 101 18 107/55 95 I/O 05/16/16 05/16/16 05/16/16 05/17/16 05/17/16 05/17/16 07:00 15:00 23:00 07:00 15:00 23:00 Intake Total 120 ml 120 ml 360 ml Output Total 1300 ml Balance 120 ml -1300 ml 120 ml 360 ml Intake Oral 120 ml 120 ml 360 ml Hemodialysis 1300 ml # Voids 2 2 1 # Bowel Movements 0 1 1 0 Result Diagram: 05/15/16 0533 Objective Remarks GENERAL: Well-nourished, well-developed male pleasant patient. SKIN: Warm and dry. HEAD: Normocephalic. Oropharynx: Dry lips and mucous membranes. EYES: No scleral icterus. No injection or drainage. NECK: Supple, trachea midline. No JVD or lymphadenopathy. CARDIOVASCULAR: Regular rate and rhythm. 3/6 holosystolic murmur loudest at left sternal border. RESPIRATORY: Breath sounds equal bilaterally. Clear to auscultation anteriorly. No accessory muscle use on 2 L nasal cannula. GASTROINTESTINAL: Abdomen soft, non-tender, nondistended. EXTREMITIES: Trace pedal edema. NEUROLOGICAL: Awake, alert, and oriented. Somewhat flat affect. Procedures DAISY EGD A/P Problem List: (1) Femoral neck fracture ICD Code: S72.009A Status: Acute (2) Fall ICD Code: W19.XXXA Status: Acute (3) Schizophrenia ICD Code: F20.9 Status: Chronic (4) DM (diabetes mellitus) ICD Code: E11.9 Status: Chronic (5) Anemia ICD Code: D64.9 Status: Chronic (6) End stage renal failure on dialysis ICD Code: N18.6 Status: Chronic (7) Aortic valve stenosis, critical ICD Code: I35.0 Status: Acute (8) Mitral valve stenosis ICD Code: I05.0 Status: Acute (9) Mitral valve regurgitation ICD Code: I34.0 Status: Acute (10) Esophagitis, [place] grade B ICD Code: K20.8 Status: Acute (11) Gastritis ICD Code: K29.70 Status: Acute (12) Dysphagia ICD Code: R13.10 Status: Acute Assessment and Plan - Left femoral neck fracture status post mechanical fall - surgery was placed on hold due to preop echocardiogram showing critical aortic stenosis, severe mitral regurg and question of vegetation on the mitral valve. Patient is very high risk for surgery given the critical aortic valve stenosis. Appreciate CT surgery input, palliative care assistance for clarification of patient goals. Awaiting patient decision on proceeding with surgery. I discussed the patient with Dr. Burr today. -Critical aortic stenosis, mod-severe MV regurg - s/p DAISY, CT surgery consulted. Patient not candidate for valve replacement until after recovery from hip surgery. D/w Dr. Moy and Dr. dewey previously. -Anemia of CKD - stable. Epogen per nephrology. Dysphagia - EGD 05/10 showed class B esophagitis, erythematous gastritis and inflammation in the duodenal bulb. Dysphagia has improved, tolerating mechanical soft diet with thin liquids. -ESRD- cont HD per nephrology. T, Th, Sat. (followed by Dr. Felix Antony). -Hyperkalemia - resolved today. Schizophrenia- appears compensated at this time. Cont Geodon, fluoxetine and divalproex as per outpatient doses. -DM-The pt is on an insulin sliding scale as an outpt. A1c is 5.8%. Cont SSI. PPx: Heparin SQ. Problem Qualifiers (1) Femoral neck fracture: Qualified Code: S72.002A - Closed fracture of neck of left femur, initial encounter (2) Fall: Qualified Code: W19.XXXA - Fall, initial encounter Marcia Marks MD May 17, 2016 12:33
[2016-05-17 16:00] VITALS: BP 101/62; PULSE 80; RESP 16; TEMP 97.3; O2SAT 95
[2016-05-17 20:00] VITALS: BP 121/68; PULSE 95; RESP 20; TEMP 97.1; O2SAT 97
[2016-05-17] MEDS: FLUoxetine HCL 20 MG CAP PO SCH (22:12)
[2016-05-18] VITALS: BP 121/70; PULSE 105; RESP 18; TEMP 98.1; O2SAT 100
[2016-05-18] MEDS: LACTATED RINGER'S 1000 ML IV SCH (00:30)
[2016-05-18 04:00] VITALS: BP 102/54; PULSE 105; RESP 20; TEMP 97.4; O2SAT 97
[2016-05-18] MEDS: HEPARIN SODIUM - SQ 10,000 UNITS/ML VIAL SQ SCH ×3 (06:49→20:33)
[2016-05-18] MEDS: INSULIN ASPART SUPPLEMENTAL SCALE SQ SCH ×4 (07:00→20:40)
[2016-05-18 08:00] VITALS: BP 102/58; PULSE 110; RESP 20; TEMP 97.2; O2SAT 94
[2016-05-18] MEDS: SEVELAMER CARBONATE 800 MG TAB PO SCH ×3 (08:00→16:31)
[2016-05-18] MEDS: LACTULOSE SYRUP 20 GM/30 ML CUP PO SCH (09:00)
[2016-05-18] MEDS: DOCUSATE SODIUM 100 MG CAP PO SCH ×2 (09:00→20:33)
[2016-05-18] MEDS: DIVALPROEX SODIUM E.R. 500 MG TAB PO SCH ×2 (09:00→20:33)
[2016-05-18] MEDS: ZIPRASIDONE HCL 80 MG CAP PO SCH ×2 (09:00→20:32)
[2016-05-18] MEDS: SENNOSIDES 8.6 MG TAB PO SCH (09:00)
[2016-05-18] MEDS: PANTOPRAZOLE SOD 40 MG DELAYED RELEASE TAB PO SCH (09:00)
[2016-05-18] MEDS: METOPROLOL TARTRATE 25 MG TAB PO SCH ×2 (09:00→20:33)
[2016-05-18] MEDS: ZIPRASIDONE HCL 20 MG CAP PO SCH ×2 (09:00→20:32)
[2016-05-18] MEDS: GELATIN 12 MM/7 MM FOAM TOP PRN (10:26)
[2016-05-18] MEDS: EPOETIN ALFA 10,000 UNITS/ML VIAL IV PRN (10:26)
--- NOTE | 2016-05-18 10:57 | HHI.NPPN ---
Subjective General Problems: Anemia, Hypertension Renal Failure: Chronic, End Stage Renal Disease Review of Systems General Constitutional: Fatigue Musculoskeletal MS: Pain/Stiffness Objective Data Data 05/17/16 05/18/16 19:00 07:00 Intake Total 660 ml 720 ml Output Total 100 ml Balance 660 ml 620 ml Intake Oral 660 ml 720 ml Output Urine Total 100 ml # Voids 3 1 # Bowel Movements 1 0 Vital Signs Date Time Temp Pulse Resp B/P Pulse Ox O2 Delivery O2 Flow Rate FiO2 05/18/16 08:00 97.2 110 20 102/58 94 05/18/16 04:00 97.4 105 20 102/54 97 05/18/16 00:00 98.1 105 18 121/70 100 05/17/16 20:00 97.1 95 20 121/68 97 05/17/16 16:00 97.3 80 16 101/62 95 05/17/16 12:00 97.2 80 18 106/71 93 -: 05/15/16 0533 Physical Exam General Appearance: Well Developed, Well Nourished, No Acute Distress, Comfortable Throat Throat Exam: Oral Mucosa [place] & Moist Pulmonary Resp Exam: Clear Bilaterally, Breath Sounds Equal, No Distress Cardiology CV Exam: Normal Sinus Rhythm, Murmur Gastrointestinal/Abdomen GI Exam: Soft, Non-Tender, Bowel Sounds Present Musculoskeletal MS Exam: Joints Intact, Normal Tone Integumentary Skin Exam: Clear, Warm, Dry, Intact Extremeties Extremities Exam: No Edema, Pedal Pulses Palpable Neurologic Neuro Exam: Alert, Awake, Oriented, Speech Clear, Moving All Extremities Psychiatric Psych Exam: Appropriate Responses Assessment/Plan Discussed Condition With: Patient Assessment Summary: Anemia of CKD, Hypertension, End Stage Renal Disease Problem List: (1) ESRD (end stage renal disease) Plan: We will continue HD TTS. he was seen at dialysis 2 L 2 K/HCO3 low K, high protein diet Continue Renvela for metabolic bone disorder, monitor phosphorus periodically. Renal diet with no protein restriction. Historically, patient has been non compliant with diet and medications, at least partially due to his bipolar illness. (2) Femoral neck fracture Plan: Seen by Orthopedics. cleared by cardiology, awaiting anesthesia evaluation (3) Murmur Plan: Last echocardiogram recorded was in 2008, with no acute abnormality. Echocardiogram revealed critical with possible vegetation, DAISY taken, unlikely endocarditis he will need eventual valve replacement CV surgery has recommended outpatient follow up, palliative has evaluated to clarify goals Rocephin was stopped (4) Hypertension Plan: continue home medications. Monitor. (5) Anemia Plan: epogen with HD Plan patient was seen and examined. Agree with above assessment and plan. Awaiting surgery for hip fracture. Problem Qualifiers (1) Femoral neck fracture: Qualified Code: S72.002A - Closed fracture of neck of left femur, initial encounter Tyler Crowe MD May 18, 2016 10:57
[2016-05-18 12:00] VITALS: BP 102/59; PULSE 103; RESP 18; TEMP 97.2; O2SAT 98
--- NOTE | 2016-05-18 15:39 | HHI.PR ---
Addendum to Inpatient Note Addendum Reason: Additional Documentation Additional Information Chart reviewed. Case d.w : Reviewed cardiology discussions. Not likely to be Endocarditis. Q fever and Bartonella serologies negative. No antibiotics. Will sign off please call back if any change in clinical condition or questions. Marianela Hahn MD May 18, 2016 15:39
[2016-05-18 16:00] VITALS: BP 121/70; PULSE 100; RESP 18; TEMP 98.4; O2SAT 95
[2016-05-18 20:11] VITALS: BP 98/57; PULSE 98; RESP 20; TEMP 96.9; O2SAT 95
--- NOTE | 2016-05-18 20:26 | HHI.PR ---
Subjective Remarks No hip pain, but anxious about being turned. has not talked to brother or sister today or yesterday. Objective Vitals Vital Signs Date Time Temp Pulse Resp B/P Pulse Ox O2 Delivery O2 Flow Rate FiO2 05/18/16 16:00 98.4 100 18 121/70 95 05/18/16 12:00 97.2 103 18 102/59 98 05/18/16 08:00 97.2 110 20 102/58 94 05/18/16 04:00 97.4 105 20 102/54 97 05/18/16 00:00 98.1 105 18 121/70 100 I/O 05/17/16 05/17/16 05/17/16 05/18/16 05/18/16 05/18/16 07:00 15:00 23:00 07:00 15:00 23:00 Intake Total 360 ml 660 ml 480 ml 240 ml 150 ml Output Total 100 ml 2150 ml Balance 360 ml 660 ml 380 ml 240 ml -2000 ml Intake Oral 360 ml 660 ml 480 ml 240 ml 150 ml Output Urine Total 100 ml 150 ml Hemodialysis 2000 ml # Voids 1 3 1 0 1 # Bowel Movements 0 1 0 0 Result Diagram: 05/15/16 0533 Objective Remarks GENERAL: Well-nourished, well-developed male pleasant patient. SKIN: Warm and dry. HEAD: Normocephalic. Oropharynx: Dry lips and mucous membranes. EYES: No scleral icterus. No injection or drainage. NECK: Supple, trachea midline. No JVD or lymphadenopathy. CARDIOVASCULAR: Regular rate and rhythm. 3/6 holosystolic murmur loudest at left sternal border. RESPIRATORY: Breath sounds equal bilaterally. Clear to auscultation anteriorly. No accessory muscle use on 2 L nasal cannula. GASTROINTESTINAL: Abdomen soft, non-tender, nondistended. EXTREMITIES: Trace pedal edema. NEUROLOGICAL: Awake, alert, and oriented. Somewhat flat affect. Procedures DAISY EGD A/P Problem List: (1) Femoral neck fracture ICD Code: S72.009A Status: Acute (2) Fall ICD Code: W19.XXXA Status: Acute (3) Schizophrenia ICD Code: F20.9 Status: Chronic (4) DM (diabetes mellitus) ICD Code: E11.9 Status: Chronic (5) Anemia ICD Code: D64.9 Status: Chronic (6) End stage renal failure on dialysis ICD Code: N18.6 Status: Chronic (7) Aortic valve stenosis, critical ICD Code: I35.0 Status: Acute (8) Mitral valve stenosis ICD Code: I05.0 Status: Acute (9) Mitral valve regurgitation ICD Code: I34.0 Status: Acute (10) Esophagitis, [place] grade B ICD Code: K20.8 Status: Acute (11) Gastritis ICD Code: K29.70 Status: Acute (12) Dysphagia ICD Code: R13.10 Status: Acute Assessment and Plan - Left femoral neck fracture status post mechanical fall - surgery was placed on hold due to preop echocardiogram showing critical aortic stenosis, severe mitral regurg and question of vegetation on the mitral valve. Patient is very high risk for surgery given the critical aortic valve stenosis. Appreciate CT surgery input, palliative care assistance for clarification of patient goals. Awaiting patient decision on proceeding with surgery. I discussed the patient with Dr. Burr on Friday, he will do surgery if patient consents. -Critical aortic stenosis, mod-severe MV regurg - s/p DAISY, CT surgery consulted. Patient not candidate for valve replacement until after recovery from hip surgery. D/w Dr. Moy and Dr. dewey previously. -Anemia of CKD - stable. Epogen per nephrology. Dysphagia - EGD 05/10 showed class B esophagitis, erythematous gastritis and inflammation in the duodenal bulb. Dysphagia has improved, tolerating mechanical soft diet with thin liquids. -ESRD- cont HD per nephrology. T, Th, Sat. (followed by Dr. Felix Antony). -Hyperkalemia - resolved. Schizophrenia- appears compensated at this time. Cont Geodon, fluoxetine and divalproex as per outpatient doses. -DM-The pt is on an insulin sliding scale as an outpt. A1c is 5.8%. Cont SSI. PPx: Heparin SQ. Problem Qualifiers (1) Femoral neck fracture: Qualified Code: S72.002A - Closed fracture of neck of left femur, initial encounter (2) Fall: Qualified Code: W19.XXXA - Fall, initial encounter Marcia Marks MD May 18, 2016 20:26
[2016-05-18] MEDS: FLUoxetine HCL 20 MG CAP PO SCH (20:33)
[2016-05-19] VITALS: BP 101/63; PULSE 104; RESP 20; TEMP 96.5; O2SAT 95
[2016-05-19] MEDS: LACTATED RINGER'S 1000 ML IV SCH ×2 (00:30→20:54)
[2016-05-19 04:00] VITALS: BP 97/52; PULSE 100; RESP 20; TEMP 96; O2SAT 95
[2016-05-19] MEDS: SEVELAMER CARBONATE 800 MG TAB PO SCH ×4 (05:49→17:14)
[2016-05-19] MEDS: INSULIN ASPART SUPPLEMENTAL SCALE SQ SCH ×4 (05:50→20:19)
[2016-05-19] MEDS: HEPARIN SODIUM - SQ 10,000 UNITS/ML VIAL SQ SCH ×3 (05:51→20:20)
[2016-05-19 08:00] VITALS: BP 101/58; PULSE 90; RESP 20; TEMP 97.4; O2SAT 95
[2016-05-19] MEDS: ZIPRASIDONE HCL 80 MG CAP PO SCH ×2 (08:35→20:19)
[2016-05-19] MEDS: LACTULOSE SYRUP 20 GM/30 ML CUP PO SCH ×2 (08:35→08:41)
[2016-05-19] MEDS: SENNOSIDES 8.6 MG TAB PO SCH (08:35)
[2016-05-19] MEDS: PANTOPRAZOLE SOD 40 MG DELAYED RELEASE TAB PO SCH (08:35)
[2016-05-19] MEDS: DIVALPROEX SODIUM E.R. 500 MG TAB PO SCH ×2 (08:35→20:19)
[2016-05-19] MEDS: DOCUSATE SODIUM 100 MG CAP PO SCH ×2 (08:35→20:19)
[2016-05-19] MEDS: METOPROLOL TARTRATE 25 MG TAB PO SCH ×2 (08:35→20:19)
[2016-05-19] MEDS: ZIPRASIDONE HCL 20 MG CAP PO SCH ×2 (08:35→20:19)
[2016-05-19 12:00] VITALS: BP 102/51; PULSE 81; RESP 20; TEMP 96.6; O2SAT 97
--- NOTE | 2016-05-19 15:41 | HHI.NPPN ---
Subjective General Problems: Anemia, Hypertension Renal Failure: Chronic, End Stage Renal Disease Review of Systems General Constitutional: Fatigue Musculoskeletal MS: Pain/Stiffness Objective Data Data 05/18/16 05/19/16 19:00 07:00 Intake Total 150 ml 1020 ml Output Total 2150 ml 50 ml Balance -2000 ml 970 ml Intake Oral 150 ml 1020 ml Output Urine Total 150 ml 50 ml Hemodialysis 2000 ml # Voids 1 2 # Bowel Movements 0 Vital Signs Date Time Temp Pulse Resp B/P Pulse Ox O2 Delivery O2 Flow Rate FiO2 05/19/16 12:00 96.6 81 20 102/51 97 05/19/16 08:00 97.4 90 20 101/58 95 05/19/16 04:00 96.0 100 20 97/52 95 05/19/16 00:00 96.5 104 20 101/63 95 05/18/16 20:11 96.9 98 20 98/57 95 05/18/16 16:00 98.4 100 18 121/70 95 -: 05/15/16 0533 Physical Exam General Appearance: Well Developed, Well Nourished, No Acute Distress, Comfortable Throat Throat Exam: Oral Mucosa [place] & Moist Pulmonary Resp Exam: Clear Bilaterally, Breath Sounds Equal, No Distress Cardiology CV Exam: Normal Sinus Rhythm, Murmur Gastrointestinal/Abdomen GI Exam: Soft, Non-Tender, Bowel Sounds Present Musculoskeletal MS Exam: Joints Intact, Normal Tone Integumentary Skin Exam: Clear, Warm, Dry, Intact Extremeties Extremities Exam: No Edema, Pedal Pulses Palpable Neurologic Neuro Exam: Alert, Awake, Oriented, Speech Clear, Moving All Extremities Psychiatric Psych Exam: Appropriate Responses Assessment/Plan Discussed Condition With: Patient Assessment Summary: Anemia of CKD, Hypertension, End Stage Renal Disease Problem List: (1) ESRD (end stage renal disease) Plan: We will continue HD TTS. UF 2 L yesterday low K, high protein diet Continue Renvela for metabolic bone disorder, monitor phosphorus periodically. Renal diet with no protein restriction. Historically, patient has been non compliant with diet and medications, at least partially due to his bipolar illness. (2) Femoral neck fracture Plan: Seen by Orthopedics. cleared by cardiology, awaiting anesthesia evaluation (3) Murmur Plan: Last echocardiogram recorded was in 2008, with no acute abnormality. Echocardiogram revealed critical with possible vegetation, DAISY taken, unlikely endocarditis he will need eventual valve replacement CV surgery has recommended outpatient follow up, palliative has evaluated to clarify goals Rocephin was stopped (4) Hypertension Plan: continue home medications. Monitor. (5) Anemia Plan: epogen with HD Plan patient was seen and examined. Agree with above assessment and plan. Awaiting surgery for hip fracture. Problem Qualifiers (1) Femoral neck fracture: Qualified Code: S72.002A - Closed fracture of neck of left femur, initial encounter Tyler Crowe MD May 19, 2016 15:41
[2016-05-19 16:00] VITALS: BP 99/59; PULSE 82; RESP 20; TEMP 96.8; O2SAT 99
[2016-05-19 20:00] VITALS: BP 103/58; PULSE 89; RESP 16; TEMP 97.7; O2SAT 96
[2016-05-19] MEDS: FLUoxetine HCL 20 MG CAP PO SCH (20:19)
--- NOTE | 2016-05-19 21:06 | HHI.PR ---
Subjective Remarks Patient denies hip pain, shortness of breath or chest pain. Still has not talked to his brother or sister. Objective Vitals Vital Signs Date Time Temp Pulse Resp B/P Pulse Ox O2 Delivery O2 Flow Rate FiO2 05/19/16 16:00 96.8 82 20 99/59 99 05/19/16 12:00 96.6 81 20 102/51 97 05/19/16 08:00 97.4 90 20 101/58 95 05/19/16 04:00 96.0 100 20 97/52 95 05/19/16 00:00 96.5 104 20 101/63 95 I/O 05/18/16 05/18/16 05/18/16 05/19/16 05/19/16 05/19/16 07:00 15:00 23:00 07:00 15:00 23:00 Intake Total 240 ml 150 ml 780 ml 240 ml 960 ml Output Total 2150 ml 50 ml Balance 240 ml -2000 ml 780 ml 190 ml 960 ml Intake Oral 240 ml 150 ml 780 ml 240 ml 960 ml Output Urine Total 150 ml 50 ml Hemodialysis 2000 ml # Voids 0 1 1 1 1 # Bowel Movements 0 0 0 1 Result Diagram: 05/15/16 0533 Objective Remarks GENERAL: Well-nourished, well-developed male pleasant patient. SKIN: Warm and dry. HEAD: Normocephalic. Oropharynx: Dry lips and mucous membranes. EYES: No scleral icterus. No injection or drainage. NECK: Supple, trachea midline. No JVD or lymphadenopathy. CARDIOVASCULAR: Regular rate and rhythm. 3/6 holosystolic murmur loudest at left sternal border. RESPIRATORY: Breath sounds equal bilaterally. Clear to auscultation anteriorly. No accessory muscle use on 2 L nasal cannula. GASTROINTESTINAL: Abdomen soft, non-tender, nondistended. EXTREMITIES: Trace pedal edema. NEUROLOGICAL: Awake, alert, and oriented. Somewhat flat affect. Procedures DAISY EGD A/P Problem List: (1) Femoral neck fracture ICD Code: S72.009A Status: Acute (2) Fall ICD Code: W19.XXXA Status: Acute (3) Schizophrenia ICD Code: F20.9 Status: Chronic (4) DM (diabetes mellitus) ICD Code: E11.9 Status: Chronic (5) Anemia ICD Code: D64.9 Status: Chronic (6) End stage renal failure on dialysis ICD Code: N18.6 Status: Chronic (7) Aortic valve stenosis, critical ICD Code: I35.0 Status: Acute (8) Mitral valve stenosis ICD Code: I05.0 Status: Acute (9) Mitral valve regurgitation ICD Code: I34.0 Status: Acute (10) Esophagitis, [place] grade B ICD Code: K20.8 Status: Acute (11) Gastritis ICD Code: K29.70 Status: Acute (12) Dysphagia ICD Code: R13.10 Status: Acute Assessment and Plan - Left femoral neck fracture status post mechanical fall - surgery was placed on hold due to preop echocardiogram showing critical aortic stenosis, severe mitral regurg and question of vegetation on the mitral valve. Patient is very high risk for surgery given the critical aortic valve stenosis. Appreciate CT surgery input, palliative care assistance for clarification of patient goals. Awaiting patient decision on proceeding with surgery. I discussed the patient with Dr. Burr on Friday, he will do surgery if patient consents. Awaiting family decision. -Critical aortic stenosis, mod-severe MV regurg - s/p DAISY, CT surgery consulted. Patient not candidate for valve replacement until after recovery from hip surgery. D/w Dr. Moy and Dr. dewey previously. -Anemia of CKD - stable. Epogen per nephrology. Dysphagia - EGD 05/10 showed class B esophagitis, erythematous gastritis and inflammation in the duodenal bulb. Dysphagia has improved, tolerating mechanical soft diet with thin liquids. -ESRD- cont HD per nephrology. T, Th, Sat. (followed by Dr. Felix Antony). -Hyperkalemia - resolved. Schizophrenia- appears compensated at this time. Cont Geodon, fluoxetine and divalproex as per outpatient doses. -DM-The pt is on an insulin sliding scale as an outpt. A1c is 5.8%. Cont SSI. PPx: Heparin SQ. Problem Qualifiers (1) Femoral neck fracture: Qualified Code: S72.002A - Closed fracture of neck of left femur, initial encounter (2) Fall: Qualified Code: W19.XXXA - Fall, initial encounter Marcia Marks MD May 19, 2016 21:06
[2016-05-20] VITALS: BP 97/59; PULSE 92; RESP 16; TEMP 98; O2SAT 96
[2016-05-20 04:00] VITALS: BP 99/57; PULSE 85
[2016-05-20] MEDS: HEPARIN SODIUM - SQ 10,000 UNITS/ML VIAL SQ SCH ×3 (05:17→21:01)
[2016-05-20] MEDS: INSULIN ASPART SUPPLEMENTAL SCALE SQ SCH ×3 (06:34→20:56)
[2016-05-20 08:04] VITALS: BP 97/66; PULSE 81; RESP 16; TEMP 97.4; O2SAT 97
[2016-05-20] MEDS: PANTOPRAZOLE SOD 40 MG DELAYED RELEASE TAB PO SCH (08:57)
[2016-05-20] MEDS: SEVELAMER CARBONATE 800 MG TAB PO SCH ×3 (08:57→17:30)
[2016-05-20] MEDS: ZIPRASIDONE HCL 20 MG CAP PO SCH ×2 (08:58→20:58)
[2016-05-20] MEDS: DIVALPROEX SODIUM E.R. 500 MG TAB PO SCH ×2 (08:58→20:58)
[2016-05-20] MEDS: DOCUSATE SODIUM 100 MG CAP PO SCH ×2 (08:58→20:58)
[2016-05-20] MEDS: SENNOSIDES 8.6 MG TAB PO SCH (08:58)
[2016-05-20] MEDS: ZIPRASIDONE HCL 80 MG CAP PO SCH ×2 (08:58→21:00)
[2016-05-20] MEDS: METOPROLOL TARTRATE 25 MG TAB PO SCH ×2 (09:00→21:05)
[2016-05-20] MEDS: LACTULOSE SYRUP 20 GM/30 ML CUP PO SCH (09:00)
[2016-05-20] MEDS: ACETAMINOPHEN 325 MG TAB PO PRN ×2 (09:01→16:29)
[2016-05-20 11:00] LABS: BICARBONATE 27.1 MEQ/L (21.0-32.0); POTASSIUM 5.1 MEQ/L (3.5-5.1)
--- NOTE | 2016-05-20 11:31 | HHI.NPPN ---
Subjective General Problems: Anemia, Hypertension Renal Failure: Chronic, End Stage Renal Disease Interval History Pt resting. His sister is at bedside, she is from [place]. They are inquiring about ortho surgery. (Zahra Aguilar) Review of Systems General Constitutional: Fatigue (Zahra Aguilar) Musculoskeletal MS: Pain/Stiffness (Zahra Aguilar) Objective Data Data 05/19/16 05/20/16 19:00 07:00 Intake Total 960 ml 480 ml Balance 960 ml 480 ml Intake Oral 960 ml 480 ml # Voids 1 2 # Bowel Movements 1 0 Vital Signs Date Time Temp Pulse Resp B/P Pulse Ox O2 Delivery O2 Flow Rate FiO2 05/20/16 10:00 16 05/20/16 08:04 97.4 81 16 97/66 97 05/20/16 04:00 85 99/57 05/20/16 00:00 98.0 92 16 97/59 96 05/19/16 20:00 97.7 89 16 103/58 96 05/19/16 16:00 96.8 82 20 99/59 99 05/19/16 12:00 96.6 81 20 102/51 97 (Zahra Aguilar) -: 05/20/16 1009 Physical Exam General Appearance: Well Developed, Well Nourished, No Acute Distress, Comfortable ( Zahra Aguilar) Throat Throat Exam: Oral Mucosa [place] & Moist (Zahra Aguilar) Pulmonary Resp Exam: Clear Bilaterally, Breath Sounds Equal, No Distress (Zahra Aguilar) Cardiology CV Exam: Normal Sinus Rhythm, Murmur CV Remarks III/ systolic murmur, mitral area, radiates to left axilla (Zahra Aguilar) Gastrointestinal/Abdomen GI Exam: Soft, Non-Tender, Bowel Sounds Present (Zahra Aguilar) Musculoskeletal MS Exam: Joints Intact, Normal Tone (Zahra Aguilar) Integumentary Skin Exam: Clear, Warm, Dry, Intact (Zahra Aguilar) Extremeties Extremities Exam: No Edema, Pedal Pulses Palpable (Zahra Aguilar) Neurologic Neuro Exam: Alert, Awake, Oriented, Speech Clear, Moving All Extremities ( Zahra Aguilar) Psychiatric Psych Exam: Appropriate Responses (Zahra Aguilar) Assessment/Plan Discussed Condition With: Patient Assessment Summary: Anemia of CKD, Hypertension, End Stage Renal Disease Problem List: (1) ESRD (end stage renal disease) Plan: We will continue HD TTS. no acute renal concerns low K, high protein diet Continue Renvela for metabolic bone disorder, will increase dosage due to high phos; monitor phosphorus periodically. Renal diet with no protein restriction. Historically, patient has been non compliant with diet and medications, at least partially due to his bipolar illness. (2) Femoral neck fracture Plan: Seen by Orthopedics. awaiting surgical correction (3) Murmur Plan: Last echocardiogram recorded was in 2008, with no acute abnormality. Echocardiogram revealed critical with possible vegetation, DAISY taken, unlikely endocarditis he will need eventual valve replacement CV surgery has recommended outpatient follow up, palliative has evaluated to clarify goals Rocephin was stopped (4) Hypertension Plan: continue home medications. Monitor. (5) Anemia Plan: epogen with HD (Zahra Aguilar) Plan patient was seen and examined. I had a long discussion with patient's sister. All her questions were answered to the best of my ability. In my opinion, although patient has bipolar illness, lived in SNF, he was always very pleasant , appeared to enjoy life. Personally I believe, surgery should be performed, but I did tell the sister that surgery carries high risks of cardiac mortality and morbidity. She understands the risks, but also at the same time, does not want to see her brother bed bound for the rest of his life. Dialysis tomorrow. (Felix Andersen MD) Problem Qualifiers (1) Femoral neck fracture: Qualified Code: S72.002A - Closed fracture of neck of left femur, initial encounter Zahra Aguilar May 20, 2016 11:31 Felix Andersen MD May 21, 2016 14:31
[2016-05-20 11:35] VITALS: BP 96/60; PULSE 73; RESP 16; TEMP 97.1; O2SAT 97
--- NOTE | 2016-05-20 12:13 | HHI.PR ---
Subjective Remarks Follow-up for multiple medical issues including hip fracture. Patient has no complaints. He denies any chest pain, shortness of breathing or lightheadedness and dizziness. Patient stated that he wants surgery. Patient remains afebrile in no acute events since his last seen. Objective Vitals Vital Signs Date Time Temp Pulse Resp B/P Pulse Ox O2 Delivery O2 Flow Rate FiO2 05/20/16 10:00 16 05/20/16 08:04 97.4 81 16 97/66 97 05/20/16 04:00 85 99/57 05/20/16 00:00 98.0 92 16 97/59 96 05/19/16 20:00 97.7 89 16 103/58 96 05/19/16 16:00 96.8 82 20 99/59 99 I/O 05/19/16 05/19/16 05/19/16 05/20/16 05/20/16 05/20/16 07:00 15:00 23:00 07:00 15:00 23:00 Intake Total 240 ml 960 ml 240 ml 240 ml Output Total 50 ml Balance 190 ml 960 ml 240 ml 240 ml Intake Oral 240 ml 960 ml 240 ml 240 ml Output Urine Total 50 ml # Voids 1 1 1 1 # Bowel Movements 0 1 0 0 Result Diagram: 05/20/16 1009 Objective Remarks GENERAL: A weak-looking male in no acute distress.. CARDIOVASCULAR: Regular rate and rhythm. 4/6 systolic heart murmur in all areas. RESPIRATORY: Breath sounds equal bilaterally. No accessory muscle use. GASTROINTESTINAL: Abdomen soft, non-tender, nondistended. Procedures DAISY EGD Medications and IVs Current Medications Ondansetron HCl (Zofran Inj) 4 mg ONCE ONCE IVP Last administered on 03:31; Start 05/07/16 at 02:30; Stop 05/07/16 at 02:31; Status DC IV Flush (NS Flush) 2 ml UNSCH PRN IVF FLUSH AFTER USING IV ACCESS Last administered on 05/16/16 08:08; Start 05/07/16 at 02:30 Hydromorphone HCl (Dilaudid Pf Inj) 0.5 mg ONCE ONCE IVS Last administered on 05/07/16 03:31; Start 05/07/16 at 02:30; Stop 05/07/16 at 02:31; Status DC Ondansetron HCl 4 mg 4 mg ONCE ONCE IV PUSH Last administered on 05/07/16 02: 30; Start 05/07/16 at 02:30; Stop 05/07/16 at 02:31; Status DC Sodium Chloride (NS 1000 ml Inj) 1,000 ml @ 40 mls/hr Q24H IV Last administered on 05/07/16 05:14; Start 05/07/16 at 03:33; Stop 05/07/16 at 09:08 ; Status DC Acetaminophen (Tylenol) 650 mg Q4H PRN PO TEMP > 100.4; Start 05/07/16 at 03:45 Ondansetron HCl (Zofran Inj) 4 mg Q6H PRN IVP NAUSEA OR VOMITING Last administered on 05/09/16 00:04; Start 05/07/16 at 03:45 Magnesium Hydroxide (Milk Of Magnesia Liq) 30 ml Q12H PRN PO CONSTIPATION; Start 05/07/16 at 03:45 Acetaminophen (Tylenol) 650 mg Q6H PRN PO PAIN SCALE 1 TO 2 Last administered on 05/20/16 09:01; Start 05/07/16 at 03:45 Hydromorphone HCl (Dilaudid Pf Inj) 0.2 mg Q3H PRN IV Pain 3-5; if unable to take PO; Start 05/07/16 at 03:45; Stop 05/07/16 at 11:53; Status DC Hydromorphone HCl (Dilaudid Pf Inj) 0.5 mg Q3H PRN IV Breakthrough pain Last administered on 05/15/16 05:02; Start 05/07/16 at 03:45 Naloxone HCl 0.4 mg 0.4 mg UNSCH PRN IV SEE LABEL COMMENTS; Start 05/07/16 at 03:45 Sodium Chloride (NS 1000 ml Inj) 1,000 ml @ 0 mls/hr Q0M PRN IV For Prime & Rinse Back; Start 05/07/16 at 09:06 Heparin Sodium (Porcine) 8000 units 8,000 units UNSCH PRN IVF WITH DIALYSIS; Start 05/07/16 at 09:15 Sodium Chloride 1,000 ml @ 200 mls/hr Q5H PRN IV WITH DIALYSIS Last administered on 3/16/17at 15:25; Start 05/07/16 at 09:06 Sodium Chloride (NS 1000 ml Inj) 1,000 ml @ 0 mls/hr Q0M PRN IV WITH DIALYSIS; Start 05/07/16 at 09:06 Mannitol (Mannitol Inj) 12.5 gm UNSCH PRN IV WITH DIALYSIS; Start 05/07/16 at 09:15 Albumin Human (Albumin 25% Inj) 25 gm UNSCH PRN IV WITH DIALYSIS; Start at 09:15 IV Flush (NS Flush) 5 ml UNSCH PRN IVF WITH DIALYSIS; Start 05/07/16 at 09:15 Heparin Sodium (Porcine) (Heparin Inj) UNSCH PRN .XX WITH DIALYSIS; Start at 09:15 Gentamicin Sulfate (Gentamicin (Dialysis) Inj) 20 mg UNSCH PRN IV WITH DIALYSIS ; Start 05/07/16 at 09:15 Ondansetron HCl (Zofran Inj) 4 mg UNSCH PRN IV WITH DIALYSIS Last administered on 05/07/16 22:47; Start 05/07/16 at 09:15 Acetaminophen (Tylenol) 650 mg UNSCH PRN PO for headach, pain, temp > 101F; Start 05/07/16 at 09:15 Diphenhydramine HCl (Benadryl) 25 mg UNSCH PRN PO for hives/itching/anaphylaxis ; Start 05/07/16 at 09:15 Nitroglycerin (Nitrostat Sl) 0.4 mg UNSCH PRN SL CHEST PAIN; Start 05/07/16 at 09:15 Clonidine (Catapres) 0.1 mg UNSCH PRN PO for BP > 180/100 X 2 readings; Start 05/07/16 at 09:15 Epoetin Elie (Epogen Inj) 10,000 units UNSCH PRN IV WITH DIALYSIS Last administered on 05/18/16 10:26; Start 05/07/16 at 09:15 Gelatin (Gelfoam 12 Mm/7 Mm Top) 1 foam UNSCH PRN TOP SEE LABEL COMMENTS Last administered on 05/18/16 10:26; Start 05/07/16 at 09:15 Sevelamer Carbonate (Renvela) 800 mg TIDAC PO ; Start 05/07/16 at 12:00; Stop at 14:20; Status DC Oxycodone HCl (Roxicodone) 10 mg Q4H PRN PO pain 6-10 Last administered on 05/16 21:19; Start 05/07/16 at 12:00 Oxycodone HCl (Roxicodone) 5 mg Q4H PRN PO pain 1-5 Last administered on 22:13; Start 05/07/16 at 12:00 Docusate Sodium (Colace) 100 mg BID PO Last administered on 05/20/16 08:58; Start 05/07/16 at 21:00 Sennosides (Senokot) 17.2 mg DAILY PO Last administered on 05/20/16 08:58; Start 05/08/16 at 09:00 Ziprasidone (Geodon) 80 mg BID PO Last administered on 05/20/16 08:58; Start 05/07/16 at 21:00 Divalproex Sodium (Depakote Er) 500 mg BID PO Last administered on 05/20/16 08 :58; Start 05/07/16 at 13:00 Fluoxetine HCl (PROzac) 20 mg HS PO Last administered on 05/19/16 20:19; Start 05/07/16 at 21:00 Metoprolol Tartrate (Lopressor) 12.5 mg Q12HR PO Last administered on 20:19; Start 05/07/16 at 21:00 Famotidine (Pepcid) 20 mg DAILY PO ; Start 05/08/16 at 09:00; Stop 05/08/16 at 12:49; Status DC Insulin Aspart (NovoLOG SUPPLEMENTAL SCALE) 1 ACHS SLIDING SCALE SQ Last administered on 05/20/16 11:00; Start 05/07/16 at 16:00 Ziprasidone (Geodon) 20 mg BID PO Last administered on 05/20/16 08:58; Start 05/07/16 at 21:00 Prochlorperazine Edisylate (Compazine Inj) 10 mg ONCE ONCE IVS ; Start at 22:30; Stop 05/07/16 at 22:31; Status DC Pantoprazole Sodium (Protonix Inj) 40 mg ONCE ONCE IV PUSH Last administered on 05/07/16 23:41; Start 05/07/16 at 23:30; Stop 05/07/16 at 23:31; Status DC Gentamicin Sulfate (Gentamicin Inj) 240 mg STK-MED ONCE .ROUTE ; Start 05/08/16 at 12:20; Stop 05/08/16 at 12:21; Status DC Pantoprazole Sodium (Protonix Inj) 40 mg Q24H IV PUSH Last administered on 05/13 13:37; Start 05/08/16 at 13:00; Stop 05/13/16 at 15:41; Status DC Miscellaneous Information 1 UNSCH PRN XX SEE LABEL COMMENTS; Start 05/08/16 at 14:15; Stop 05/11/16 at 14:14; Status DC Sevelamer Carbonate 1600 mg 1,600 mg TIDAC PO Last administered on 05/14/16 17 :17; Start 05/08/16 at 17:00; Stop 05/15/16 at 09:37; Status DC Ceftriaxone Sodium 1000 mg/ Sodium Chloride 100 ml @ 200 mls/hr Q24H IV ; Start 05/08/16 at 16:00; Stop 05/08/16 at 16:00; Status DC Ceftriaxone Sodium/Sodium Chloride (Rocephin Inj/NS Inj) 100 ml @ 200 mls/hr Q24H IV Last administered on 05/13/16 16:47; Start 05/08/16 at 16:00; Stop at 16:03; Status DC Bisacodyl (Dulcolax Supp) 10 mg ONCE ONCE RECTAL ; Start 05/09/16 at 10:15; Stop 05/09/16 at 10:20; Status DC Sodium Biphosphate/ Sodium Phosphate 133 ml 133 ml ONCE ONCE OR ; Start at 10:15; Stop 05/09/16 at 10:20; Status DC Lactated Ringer's 1,000 ml @ 30 mls/hr Q24H IV ; Start 05/10/16 at 00:30; Stop 05/20/16 at 11:32; Status DC Sodium Chloride (NS 500 ml Inj) 500 ml @ 30 mls/hr [id number] IV ; Start 05/10/16 at 00:30; Stop 05/11/16 at 00:29; Status DC Insulin Human Regular (NovoLIN R INJ) See Protocol Table ... UNSCH X1 PRN SQ SEE PROTOCOL; Start 05/10/16 at 00:30; Stop 05/11/16 at 00:29; Status DC Metoprolol Tartrate (Lopressor) 25 mg UNSCH X1 PRN PO SEE LABEL COMMENTS; Start 05/10/16 at 00:30; Stop 05/11/16 at 00:29; Status DC Lactulose (Lactulose Liq) 30 ml DAILY PO Last administered on 05/16/16 08:07; Start 05/10/16 at 09:00 Propofol (Diprivan 200 Mg/20 ml Inj) 60 mg STK-MED ONCE IV ; Start 05/10/16 at 09:43; Stop 05/10/16 at 09:59; Status DC Heparin Sodium (Porcine) (Heparin Inj) 5,000 units Q8HR SQ Last administered on 05/20/16 05:17; Start 05/10/16 at 14:00 Sodium Polystyrene Sulfonate (Kayexalate Liq) 15 gm ONCE ONCE PO Last administered on 05/13/16 16:47; Start 05/13/16 at 15:45; Stop 05/13/16 at 15:46 ; Status DC Pantoprazole Sodium (Protonix) 40 mg DAILY PO Last administered on 05/20/16 08 :57; Start 05/14/16 at 09:00 Sevelamer Carbonate (Renvela) 2,400 mg TIDAC PO Last administered on 05/20/16 08:57; Start 05/15/16 at 12:00; Stop 05/20/16 at 11:33; Status DC Sevelamer Carbonate (Renvela) 3,200 mg TIDAC PO ; Start 05/20/16 at 12:00 A/P Problem List: (1) Femoral neck fracture ICD Code: S72.009A Status: Acute (2) Fall ICD Code: W19.XXXA Status: Acute (3) Schizophrenia ICD Code: F20.9 Status: Chronic (4) DM (diabetes mellitus) ICD Code: E11.9 Status: Chronic (5) Anemia ICD Code: D64.9 Status: Chronic (6) End stage renal failure on dialysis ICD Code: N18.6 Status: Chronic (7) Aortic valve stenosis, critical ICD Code: I35.0 Status: Acute (8) Mitral valve stenosis ICD Code: I05.0 Status: Acute (9) Mitral valve regurgitation ICD Code: I34.0 Status: Acute (10) Esophagitis, [place] grade B ICD Code: K20.8 Status: Acute (11) Gastritis ICD Code: K29.70 Status: Acute (12) Dysphagia ICD Code: R13.10 Status: Acute Assessment and Plan Left femoral neck fracture status post mechanical fall -[facility] consulted and stated that patient is very high risk for surgery given the critical aortic valve stenosis. -There was a questionable vegetation on DAISY so infectious disease was consulted but workup was negative. Very unlikely endocarditis. -Appreciate CT surgery input, palliative care assistance for clarification of patient goals. -Patient understands the risks and benefits of surgery and understand that he is very high risk for cardiovascular complication during surgery but wants to proceed with surgery. -Dealt with nurse he would tell Dr. Burr that patient is agreement with surgery. Critical aortic stenosis, mod-severe MV regurg - s/p DAISY, CT surgery consulted. Patient not candidate for valve replacement until after recovery from hip surgery. -D/w Dr. Moy and Dr. dewey previously. Anemia of CKD - stable. Epogen per nephrology. Dysphagia - EGD 05/10 showed class B esophagitis, erythematous gastritis and inflammation in the duodenal bulb. Dysphagia has improved, tolerating mechanical soft diet with thin liquids. ESRD - cont HD per nephrology. T, Th, Sat. (followed by Dr. Felix Antony). Hyperkalemia - resolved. Schizophrenia - appears compensated at this time. Cont Geodon, fluoxetine and divalproex as per outpatient doses. DM -The pt is on an insulin sliding scale as an outpt. A1c is 5.8%. Cont SSI. PPx: Heparin SQ. Discharge Planning Patient is requesting have surgery despite knowing that he is high risk for cardiovascular complication start surgery that can include . Patient understands the risks, benefits, and side effects and wants to continue with surgery. His sister who is at the bedside also had this discussion with him and she is in agreement with this choice. Try to reach Dr. Riley, but unable to reach him. His call center had me on hold for 10 minutes then hung up. d/w patient's nurse who stated she will call him to tell him the patient's decision. Problem Qualifiers (1) Femoral neck fracture: Qualified Code: S72.002A - Closed fracture of neck of left femur, initial encounter (2) Fall: Qualified Code: W19.XXXA - Fall, initial encounter Vivi Ewing MD May 20, 2016 12:13
[2016-05-20 16:05] VITALS: BP 99/57; PULSE 72; RESP 17; TEMP 96.8; O2SAT 97
--- NOTE | 2016-05-20 17:11 | PD.ORT.PN ---
Subjective Subjective Remarks In bed comfortable. No chest pain or Shortness of breath. Objective Vitals Vital Signs Date Time Temp Pulse Resp B/P Pulse Ox O2 Delivery O2 Flow Rate FiO2 05/20/16 11:35 97.1 73 16 96/60 97 05/20/16 10:00 16 05/20/16 08:04 97.4 81 16 97/66 97 05/20/16 04:00 85 99/57 05/20/16 00:00 98.0 92 16 97/59 96 05/19/16 20:00 97.7 89 16 103/58 96 I/O 05/19/16 05/19/16 05/19/16 05/20/16 05/20/16 05/20/16 07:00 15:00 23:00 07:00 15:00 23:00 Intake Total 240 ml 960 ml 240 ml 240 ml Output Total 50 ml Balance 190 ml 960 ml 240 ml 240 ml Intake Oral 240 ml 960 ml 240 ml 240 ml Output Urine Total 50 ml # Voids 1 1 1 1 # Bowel Movements 0 1 0 0 Result Diagram: 05/20/16 1009 Objective Remarks LLE: grossly nvi. externally rotated. 2+ PT/DP. No calf tenderness Negative Stacy sign Assessment & Plan Assessment and Plan Left femoral neck fracture. Insulin-dependent diabetes mellitus. Aortic stenosis with cardiomyopathy. Renal failure on hemodialysis PLAN: I had multiple discussions with Dr. Marks who discussed the case with his assistant inventory manager as well as anesthesia. I also had a discussion with the patient and his family who understand that he is at extremely high risk for intraoperative and postoperative complications including . They wish to proceed with surgical interventionLEFT hip bipolar hemiarthroplasty. Plan for surgery This week. Dimitri Riley Jr., MD May 20, 2016 17:11
[2016-05-20 20:00] VITALS: BP 96/63; PULSE 83; RESP 16; TEMP 97; O2SAT 96
[2016-05-20] MEDS: FLUoxetine HCL 20 MG CAP PO SCH (20:58)
[2016-05-21] VITALS: BP 100/63; PULSE 93; RESP 17; TEMP 97.4; O2SAT 96
[2016-05-21] MEDS: HEPARIN SODIUM - SQ 10,000 UNITS/ML VIAL SQ SCH ×3 (04:58→20:59)
[2016-05-21] MEDS: INSULIN ASPART SUPPLEMENTAL SCALE SQ SCH ×4 (05:56→21:00)
[2016-05-21 08:00] VITALS: BP 118/64; PULSE 97; RESP 16; TEMP 95.8; O2SAT 98
[2016-05-21] MEDS: SEVELAMER CARBONATE 800 MG TAB PO SCH ×4 (08:00→17:00)
--- NOTE | 2016-05-21 09:22 | HHI.NPPN ---
Subjective General Problems: Anemia, Hypertension Renal Failure: Chronic, End Stage Renal Disease Interval History Seen during dialysis. Hip surgery this week, possibly tomorrow per the pt. ( Zahra Aguilar) Review of Systems General Constitutional: Fatigue (Zahra Aguilar) Musculoskeletal MS: Pain/Stiffness MS Remarks some numbness left leg, motor impaired secondary to pain (Zahra Aguilar) Objective Data Data 05/20/16 05/21/16 19:00 07:00 Intake Total 360 ml 480 ml Balance 360 ml 480 ml Intake Oral 360 ml 480 ml # Voids 0 # Bowel Movements 1 Vital Signs Date Time Temp Pulse Resp B/P Pulse Ox O2 Delivery O2 Flow Rate FiO2 05/21/16 08:00 95.8 97 16 118/64 98 05/21/16 07:10 Room Air 05/21/16 00:00 97.4 93 17 100/63 96 05/20/16 20:00 97.0 83 16 96/63 96 05/20/16 16:05 96.8 72 17 99/57 97 05/20/16 11:35 97.1 73 16 96/60 97 05/20/16 10:00 16 (Zahra Aguilar) -: 05/20/16 1009 Imaging Last Impressions Hip and Pelvis X-Ray 05/07/16220 Signed Impressions: Service Date/Time: Saturday, May 07, 2016 02:46 - CONCLUSION: Left femoral neck fracture. Rayo Cespedes MD Chest X-Ray 05/07/16220 Signed Impressions: Service Date/Time: Saturday, May 07, 2016 02:46 - CONCLUSION: 1. Atelectasis versus mild consolidation in the left midlung. 2. Mild chronic cardiac silhouette enlargement. Rayo Cespedes MD (Zahra Aguilar) Physical Exam General Appearance: Well Developed, Well Nourished, No Acute Distress, Comfortable ( Zahra Aguilar) Eyes Eye Exam: Pupils Equal, Pupils Reactive (Zahra Aguilar) Throat Throat Exam: Oral Mucosa [place] & Moist (Zahra Aguilar) Pulmonary Resp Exam: Clear Bilaterally, Breath Sounds Equal, No Distress (Zahra Aguilar) Cardiology CV Exam: Normal Sinus Rhythm, Murmur CV Remarks III/ systolic murmur, mitral area, radiates to left axilla (aZhra Aguilar) Gastrointestinal/Abdomen GI Exam: Soft, Non-Tender, Bowel Sounds Present (Zahra Aguilar) Musculoskeletal MS Exam: Joints Intact, Normal Tone (Zahra Aguilar) Integumentary Skin Exam: Clear, Warm, Dry, Intact (Zahra Aguilar PROTEIN SPECIALIST) Extremeties Extremities Exam: No Edema, Pedal Pulses Palpable (Zahra Aguilar) Neurologic Neuro Exam: Alert, Awake, Oriented, Speech Clear, Moving All Extremities ( Zahra Aguilar) Psychiatric Psych Exam: Appropriate Responses (Zahra Aguilar) Assessment/Plan Discussed Condition With: Patient Assessment Summary: Anemia of CKD, Hypertension, End Stage Renal Disease Problem List: (1) ESRD (end stage renal disease) Plan: Seen during dialysis on a 2K, 350 BFR, goal 2300 ml UF We will continue HD TTS. no acute renal concerns Continue Renvela for metabolic bone disorder, dosage increased, follow up phosphorus periodically. Renal diet with no protein restriction. Historically, patient has been non compliant with diet and medications, at least partially due to his bipolar illness. (2) Femoral neck fracture Plan: Seen by Orthopedics. surgical repair now planned for this week (3) Murmur Plan: Last echocardiogram recorded was in 2008, with no acute abnormality. Echocardiogram revealed critical with possible vegetation, DAISY taken, unlikely endocarditis he will need eventual valve replacement CV surgery has recommended outpatient follow up off antibiotics (4) Hypertension Plan: continue home medications. Monitor. (5) Anemia Plan: epogen with HD (Zahra Aguilar) Problem List: (1) ESRD (end stage renal disease) Plan: Seen during dialysis on a 2K, 350 BFR, goal 2300 ml UF We will continue HD TTS. no acute renal concerns Continue Renvela for metabolic bone disorder, dosage increased, follow up phosphorus periodically. Renal diet with no protein restriction. Historically, patient has been non compliant with diet and medications, at least partially due to his bipolar illness. (2) Femoral neck fracture Plan: Seen by Orthopedics. surgical repair now planned for this week (3) Murmur Plan: Last echocardiogram recorded was in 2008, with no acute abnormality. Echocardiogram revealed critical with possible vegetation, DAISY taken, unlikely endocarditis he will need eventual valve replacement CV surgery has recommended outpatient follow up off antibiotics (4) Hypertension Plan: continue home medications. Monitor. (5) Anemia Plan: epogen with HD Plan patient was seen and examined. Agree with above assessment and plan. Surgery for hip fracture is planned for this week. (Felix Andersen MD) Problem Qualifiers (1) Femoral neck fracture: Qualified Code: S72.002A - Closed fracture of neck of left femur, initial encounter Zahra Aguilar May 21, 2016 09:22 Felix Andersen MD May 21, 2016 14:39
[2016-05-21] MEDS: EPOETIN ALFA 10,000 UNITS/ML VIAL IV PRN (11:27)
[2016-05-21] MEDS: GELATIN 12 MM/7 MM FOAM TOP PRN (11:27)
[2016-05-21] MEDS: ZIPRASIDONE HCL 80 MG CAP PO SCH ×2 (12:22→21:00)
[2016-05-21] MEDS: ZIPRASIDONE HCL 20 MG CAP PO SCH ×2 (12:23→21:00)
[2016-05-21] MEDS: SODIUM CHLORIDE 0.9% FLUSH 5 ML FLUSH IVF PRN ×2 (12:23→20:59)
[2016-05-21] MEDS: PANTOPRAZOLE SOD 40 MG DELAYED RELEASE TAB PO SCH (12:23)
[2016-05-21] MEDS: DOCUSATE SODIUM 100 MG CAP PO SCH ×2 (12:24→21:00)
[2016-05-21] MEDS: DIVALPROEX SODIUM E.R. 500 MG TAB PO SCH ×2 (12:25→21:00)
[2016-05-21] MEDS: LACTULOSE SYRUP 20 GM/30 ML CUP PO SCH (12:25)
[2016-05-21] MEDS: SENNOSIDES 8.6 MG TAB PO SCH (12:25)
[2016-05-21] MEDS: METOPROLOL TARTRATE 25 MG TAB PO SCH ×2 (12:25→21:00)
[2016-05-21 12:29] VITALS: BP 98/59; PULSE 105; RESP 18; TEMP 96.5; O2SAT 95
[2016-05-21 16:15] VITALS: BP 126/63; PULSE 111; RESP 19; TEMP 96.5; O2SAT 95
--- NOTE | 2016-05-21 16:33 | HHI.PR ---
Subjective Remarks Follow-up for hip fracture Patient has no complaints. He denied any CP or SOB. Objective Vitals Vital Signs Date Time Temp Pulse Resp B/P Pulse Ox O2 Delivery O2 Flow Rate FiO2 05/21/16 16:15 96.5 111 19 126/63 95 05/21/16 12:29 96.5 105 18 98/59 95 05/21/16 08:00 95.8 97 16 118/64 98 05/21/16 07:10 Room Air 05/21/16 00:00 97.4 93 17 100/63 96 05/20/16 20:00 97.0 83 16 96/63 96 I/O 05/20/16 05/20/16 05/20/16 05/21/16 05/21/16 05/21/16 07:00 15:00 23:00 07:00 15:00 23:00 Intake Total 240 ml 360 ml 240 ml 240 ml 240 ml Output Total 2500 ml Balance 240 ml 360 ml 240 ml 240 ml -2260 ml Intake Oral 240 ml 360 ml 240 ml 240 ml 240 ml Output Urine Total 500 ml Hemodialysis 2000 ml # Voids 1 0 0 # Bowel Movements 0 0 1 0 Result Diagram: 05/20/16 1009 Objective Remarks GENERAL: A weak-looking male in no acute distress.. CARDIOVASCULAR: Regular rate and rhythm. 4/6 systolic heart murmur in all areas. RESPIRATORY: Breath sounds equal bilaterally. No accessory muscle use. GASTROINTESTINAL: Abdomen soft, non-tender, nondistended. Procedures DAISY EGD Medications and IVs Current Medications Ondansetron HCl (Zofran Inj) 4 mg ONCE ONCE IVP Last administered on 03:31; Start 05/07/16 at 02:30; Stop 05/07/16 at 02:31; Status DC IV Flush (NS Flush) 2 ml UNSCH PRN IVF FLUSH AFTER USING IV ACCESS Last administered on 05/21/16 12:23; Start 05/07/16 at 02:30 Hydromorphone HCl (Dilaudid Pf Inj) 0.5 mg ONCE ONCE IVS Last administered on 05/07/16 03:31; Start 05/07/16 at 02:30; Stop 05/07/16 at 02:31; Status DC Ondansetron HCl 4 mg 4 mg ONCE ONCE IV PUSH Last administered on 05/07/16 02: 30; Start 05/07/16 at 02:30; Stop 05/07/16 at 02:31; Status DC Sodium Chloride (NS 1000 ml Inj) 1,000 ml @ 40 mls/hr Q24H IV Last administered on 05/07/16 05:14; Start 05/07/16 at 03:33; Stop 05/07/16 at 09:08 ; Status DC Acetaminophen (Tylenol) 650 mg Q4H PRN PO TEMP > 100.4; Start 05/07/16 at 03:45 Ondansetron HCl (Zofran Inj) 4 mg Q6H PRN IVP NAUSEA OR VOMITING Last administered on 05/09/16 00:04; Start 05/07/16 at 03:45 Magnesium Hydroxide (Milk Of Magnesia Liq) 30 ml Q12H PRN PO CONSTIPATION; Start 05/07/16 at 03:45 Acetaminophen (Tylenol) 650 mg Q6H PRN PO PAIN SCALE 1 TO 2 Last administered on 05/20/16 16:29; Start 05/07/16 at 03:45 Hydromorphone HCl (Dilaudid Pf Inj) 0.2 mg Q3H PRN IV Pain 3-5; if unable to take PO; Start 05/07/16 at 03:45; Stop 05/07/16 at 11:53; Status DC Hydromorphone HCl (Dilaudid Pf Inj) 0.5 mg Q3H PRN IV Breakthrough pain Last administered on 05/15/16 05:02; Start 05/07/16 at 03:45 Naloxone HCl 0.4 mg 0.4 mg UNSCH PRN IV SEE LABEL COMMENTS; Start 05/07/16 at 03:45 Sodium Chloride (NS 1000 ml Inj) 1,000 ml @ 0 mls/hr Q0M PRN IV For Prime & Rinse Back; Start 05/07/16 at 09:06 Heparin Sodium (Porcine) 8000 units 8,000 units UNSCH PRN IVF WITH DIALYSIS; Start 05/07/16 at 09:15 Sodium Chloride 1,000 ml @ 200 mls/hr Q5H PRN IV WITH DIALYSIS Last administered on 05/09/16 15:25; Start 05/07/16 at 09:06 Sodium Chloride (NS 1000 ml Inj) 1,000 ml @ 0 mls/hr Q0M PRN IV WITH DIALYSIS; Start 05/07/16 at 09:06 Mannitol (Mannitol Inj) 12.5 gm UNSCH PRN IV WITH DIALYSIS; Start 05/07/16 at 09:15 Albumin Human (Albumin 25% Inj) 25 gm UNSCH PRN IV WITH DIALYSIS; Start at 09:15 IV Flush (NS Flush) 5 ml UNSCH PRN IVF WITH DIALYSIS; Start 05/07/16 at 09:15 Heparin Sodium (Porcine) (Heparin Inj) UNSCH PRN .XX WITH DIALYSIS; Start at 09:15 Gentamicin Sulfate (Gentamicin (Dialysis) Inj) 20 mg UNSCH PRN IV WITH DIALYSIS ; Start 05/07/16 at 09:15 Ondansetron HCl (Zofran Inj) 4 mg UNSCH PRN IV WITH DIALYSIS Last administered on 05/07/16 22:47; Start 05/07/16 at 09:15 Acetaminophen (Tylenol) 650 mg UNSCH PRN PO for headach, pain, temp > 101F; Start 05/07/16 at 09:15 Diphenhydramine HCl (Benadryl) 25 mg UNSCH PRN PO for hives/itching/anaphylaxis ; Start 05/07/16 at 09:15 Nitroglycerin (Nitrostat Sl) 0.4 mg UNSCH PRN SL CHEST PAIN; Start 05/07/16 at 09:15 Clonidine (Catapres) 0.1 mg UNSCH PRN PO for BP > 180/100 X 2 readings; Start 05/07/16 at 09:15 Epoetin Elie (Epogen Inj) 10,000 units UNSCH PRN IV WITH DIALYSIS Last administered on 05/21/16 11:27; Start 05/07/16 at 09:15 Gelatin (Gelfoam 12 Mm/7 Mm Top) 1 foam UNSCH PRN TOP SEE LABEL COMMENTS Last administered on 05/21/16 11:27; Start 05/07/16 at 09:15 Sevelamer Carbonate (Renvela) 800 mg TIDAC PO ; Start 05/07/16 at 12:00; Stop at 14:20; Status DC Oxycodone HCl (Roxicodone) 10 mg Q4H PRN PO pain 6-10 Last administered on 05/21 12:35; Start 05/07/16 at 12:00 Oxycodone HCl (Roxicodone) 5 mg Q4H PRN PO pain 1-5 Last administered on 22:13; Start 05/07/16 at 12:00 Docusate Sodium (Colace) 100 mg BID PO Last administered on 05/21/16 12:24; Start 05/07/16 at 21:00 Sennosides (Senokot) 17.2 mg DAILY PO Last administered on 05/20/16 08:58; Start 05/08/16 at 09:00 Ziprasidone (Geodon) 80 mg BID PO Last administered on 05/21/16 12:22; Start 05/07/16 at 21:00 Divalproex Sodium (Depakote Er) 500 mg BID PO Last administered on 05/21/16 12 :25; Start 05/07/16 at 13:00 Fluoxetine HCl (PROzac) 20 mg HS PO Last administered on 05/20/16 20:58; Start 05/07/16 at 21:00 Metoprolol Tartrate (Lopressor) 12.5 mg Q12HR PO Last administered on 20:19; Start 05/07/16 at 21:00 Famotidine (Pepcid) 20 mg DAILY PO ; Start 05/08/16 at 09:00; Stop 05/08/16 at 12:49; Status DC Insulin Aspart (NovoLOG SUPPLEMENTAL SCALE) 1 ACHS SLIDING SCALE SQ Last administered on 05/20/16 11:00; Start 05/07/16 at 16:00 Ziprasidone (Geodon) 20 mg BID PO Last administered on 05/21/16 12:23; Start 05/07/16 at 21:00 Prochlorperazine Edisylate (Compazine Inj) 10 mg ONCE ONCE IVS ; Start at 22:30; Stop 05/07/16 at 22:31; Status DC Pantoprazole Sodium (Protonix Inj) 40 mg ONCE ONCE IV PUSH Last administered on 05/07/16 23:41; Start 05/07/16 at 23:30; Stop 05/07/16 at 23:31; Status DC Gentamicin Sulfate (Gentamicin Inj) 240 mg STK-MED ONCE .ROUTE ; Start 05/08/16 at 12:20; Stop 05/08/16 at 12:21; Status DC Pantoprazole Sodium (Protonix Inj) 40 mg Q24H IV PUSH Last administered on 05/13 13:37; Start 05/08/16 at 13:00; Stop 05/13/16 at 15:41; Status DC Miscellaneous Information 1 UNSCH PRN XX SEE LABEL COMMENTS; Start 05/08/16 at 14:15; Stop 05/11/16 at 14:14; Status DC Sevelamer Carbonate 1600 mg 1,600 mg TIDAC PO Last administered on 05/14/16 17 :17; Start 05/08/16 at 17:00; Stop 05/15/16 at 09:37; Status DC Ceftriaxone Sodium 1000 mg/ Sodium Chloride 100 ml @ 200 mls/hr Q24H IV ; Start 05/08/16 at 16:00; Stop 05/08/16 at 16:00; Status DC Ceftriaxone Sodium/Sodium Chloride (Rocephin Inj/NS Inj) 100 ml @ 200 mls/hr Q24H IV Last administered on 05/13/16 16:47; Start 05/08/16 at 16:00; Stop at 16:03; Status DC Bisacodyl (Dulcolax Supp) 10 mg ONCE ONCE RECTAL ; Start 05/09/16 at 10:15; Stop 05/09/16 at 10:20; Status DC Sodium Biphosphate/ Sodium Phosphate 133 ml [address] ; Start at 10:15; Stop 05/09/16 at 10:20; Status DC Lactated Ringer's 1,000 ml @ 30 mls/hr Q24H IV ; Start 05/10/16 at 00:30; Stop 05/20/16 at 11:32; Status DC Sodium Chloride (NS 500 ml Inj) 500 ml @ 30 mls/hr [id number] IV ; Start 05/10/16 at 00:30; Stop 05/11/16 at 00:29; Status DC Insulin Human Regular (NovoLIN R INJ) See Protocol Table ... UNSCH X1 PRN SQ SEE PROTOCOL; Start 05/10/16 at 00:30; Stop 05/11/16 at 00:29; Status DC Metoprolol Tartrate (Lopressor) 25 mg UNSCH X1 PRN PO SEE LABEL COMMENTS; Start 05/10/16 at 00:30; Stop 05/11/16 at 00:29; Status DC Lactulose (Lactulose Liq) 30 ml DAILY PO Last administered on 05/16/16 08:07; Start 05/10/16 at 09:00 Propofol (Diprivan 200 Mg/20 ml Inj) 60 mg STK-MED ONCE IV ; Start 05/10/16 at 09:43; Stop 05/10/16 at 09:59; Status DC Heparin Sodium (Porcine) (Heparin Inj) 5,000 units Q8HR SQ Last administered on 05/21/16 14:53; Start 05/10/16 at 14:00 Sodium Polystyrene Sulfonate (Kayexalate Liq) 15 gm ONCE ONCE PO Last administered on 05/13/16 16:47; Start 05/13/16 at 15:45; Stop 05/13/16 at 15:46 ; Status DC Pantoprazole Sodium (Protonix) 40 mg DAILY PO Last administered on 05/21/16 12 :23; Start 05/14/16 at 09:00 Sevelamer Carbonate (Renvela) 2,400 mg TIDAC PO Last administered on 05/20/16 08:57; Start 05/15/16 at 12:00; Stop 05/20/16 at 11:33; Status DC Sevelamer Carbonate (Renvela) 3,200 mg TIDAC PO Last administered on 05/21/16 12:27; Start 05/20/16 at 12:00 A/P Problem List: (1) Femoral neck fracture ICD Code: S72.009A Status: Acute (2) Fall ICD Code: W19.XXXA Status: Acute (3) Schizophrenia ICD Code: F20.9 Status: Chronic (4) DM (diabetes mellitus) ICD Code: E11.9 Status: Chronic (5) Anemia ICD Code: D64.9 Status: Chronic (6) End stage renal failure on dialysis ICD Code: N18.6 Status: Chronic (7) Aortic valve stenosis, critical ICD Code: I35.0 Status: Acute (8) Mitral valve stenosis ICD Code: I05.0 Status: Acute (9) Mitral valve regurgitation ICD Code: I34.0 Status: Acute (10) Esophagitis, [place] grade B ICD Code: K20.8 Status: Acute (11) Gastritis ICD Code: K29.70 Status: Acute (12) Dysphagia ICD Code: R13.10 Status: Acute Assessment and Plan Left femoral neck fracture status post mechanical fall -Doughnut Glazier consulted and stated that patient is very high risk for surgery given the critical aortic valve stenosis. -There was a questionable vegetation on DAISY so infectious disease was consulted but workup was negative. Very unlikely endocarditis. -Appreciate CT surgery input, palliative care assistance for clarification of patient goals. -Patient understands the risks and benefits of surgery and understand that he is very high risk for cardiovascular complication during surgery but wants to proceed with surgery. -Patient scheduled for surgery tomorrow. Critical aortic stenosis, mod-severe MV regurg - s/p DAISY, CT surgery consulted. Patient not candidate for valve replacement until after recovery from hip surgery. -D/w Dr. Moy and Dr. dewey previously. Anemia of CKD - stable. Epogen per nephrology. Dysphagia - EGD 05/10 showed class B esophagitis, erythematous gastritis and inflammation in the duodenal bulb. Dysphagia has improved, tolerating mechanical soft diet with thin liquids. ESRD - cont HD per nephrology. T, Th, Sat. (followed by Dr. Felix Antony). Hyperkalemia - resolved. Schizophrenia - appears compensated at this time. Cont Geodon, fluoxetine and divalproex as per outpatient doses. DM -The pt is on an insulin sliding scale as an outpt. A1c is 5.8%. Cont SSI. PPx: Heparin SQ. Discharge Planning Patient scheduled for surgery tomorrow. Problem Qualifiers (1) Femoral neck fracture: Qualified Code: S72.002A - Closed fracture of neck of left femur, initial encounter (2) Fall: Qualified Code: W19.XXXA - Fall, initial encounter Vivi Ewing MD May 21, 2016 16:33
--- NOTE | 2016-05-21 16:46 | HHI.HCPN ---
Reason for visit a. To assist with evaluation and management of symptoms including: hip pain b. To assist medical decision maker(s) with: better understanding of current medical conditions; weighing benefits/burdens of medical treatment options; making medical treatment decisions. . Subjective/Interval History Mr. Herron is a 55-year-old male long-term resident of [facility] with a known history of schizophrenia; diabetes mellitus; end-stage renal disease on hemodialysis; coronary artery disease status post non-ST elevation myocardial infarction; and Reza's esophagus who suffered a slip and fall on 05/07/2016 at the facility and suffered a left femoral head fracture. On exam, the patient was noted to have a murmur, Records showed the patient had a mildly positive stress test. Echocardiogram in 2008 was normal. An echocardiogram performed on 05/07/16 during this hospitalization revealed "critical" aortic stenosis. There was also a moderately to severely calcified mitral annulus with a possible vegetation on the mitral valve. Cardiology and infectious disease were consulted. Infectious disease did not feel vegetation was present. Cultures were negative so it was not felt the patient had endocarditis. DAISY showed no evidence of vegetation. The abnormality seen on the initial echocardiogram was felt to be due to flail motion involving the posterior leaflet due to rupture of one or more cords in the mitral valve. It was determined the patient was not a candidate for valve replacement until after he has recovered from hip surgery, at the same time he is high risk hip surgery because of his severe aortic valve stenosis. The patient decided yesterday 05/20/16 that he would like to proceed with surgery despite being high risk for cardiovascular complications, his sister agrees with her brothers decision. Met with orthopedics and surgical repair is planned for this week. Patient remains afebrile,hemodynamically stable. Patient receiving HD, on Epogen. Patient reporting numbness in left leg, denies pain on exam but reports moderate to severe pain with movement. PRN oxycodone 5mg-10mg is available q4 hours PRN, sparingly used. PRN hydromorphone 0.5mg IV q3 hours PRN is also available but has not been utilized. Patient does have a history of occasional chest pains. However, these most often happen at rest and do not radiate. No other known pain syndromes. . Advance Directives Living Will: Copy in medical record Health Care Surrogate: Copy in medical record Durable Power of Hoop [employer] Machine: Copy in medical record Advance Directive Specifics Date completed: The patient has DURABLE POWER OF BOND MANAGER for healthcare documents and a living will dated 01/27/2008 scanned into the electronic medical record. There is a separate designation of healthcare surrogate document dated 2016 that is in the paper chart. . Health Care Surrogate(s): The DURABLE POWER OF BOND MANAGER for healthcare documents from 2007 with the primary is the patient's fatherPapa Herron (now ). The alternate is the patient's sisterSherri Sin. The health care surrogate designation document dated 03/25/2016 with the primary surrogate as the patient's brother Fernando Herron. The alternate is the patient's sister Sherri Sin. . Documented care wishes: The patient has completed a standard [place] living will. It indicates that if he is ever found to have a terminal or end-stage condition or is in a persistent vegetative state, he would not want life prolonging procedures. . Significant change in goals: Patient will proceed with hip surgery later this week. . Objective Vital Signs Date Time Temp Pulse Resp B/P Pulse Ox O2 Delivery O2 Flow Rate FiO2 05/21/16 12:29 96.5 105 18 98/59 95 05/21/16 08:00 95.8 97 16 118/64 98 05/21/16 07:10 Room Air 05/21/16 00:00 97.4 93 17 100/63 96 05/20/16 20:00 97.0 83 16 96/63 96 05/20/16 16:05 96.8 72 17 99/57 97 Intake & Output 05/21/16 05/21/16 07:00 19:00 Intake Total 480 ml 240 ml Output Total 2500 ml Balance 480 ml -2260 ml Intake Oral 480 ml 240 ml Output Urine Total 500 ml Hemodialysis 2000 ml # Voids 0 # Bowel Movements 1 0 . Physical Exam CONSTITUTIONAL/GENERAL: This is an adequately nourished patient, in no apparent distress. He is conversational and answers questions appropriately. No evidence of pain while lying still. TUBES/LINES/DRAINS: Dialysis fistula left upper extremity; peripheral IV; SCDs SKIN: No jaundice. There are numerous erythematous lesions on both upper extremities. No other wounds seen anteriorly. Skin temperature appropriate. Not diaphoretic. HEAD: Atraumatic. Normocephalic. EYES: PERRLA. Extraocular motions intact. No scleral icterus. No injection or drainage. Fundi not examined. ENT: Hearing grossly normal. Nose without bleeding or purulent drainage. NECK: Trachea midline. CARDIOVASCULAR: Regular rate and rhythm without murmurs, gallops, or rubs. No JVD. Peripheral pulses symmetric. RESPIRATORY/CHEST: Symmetric, unlabored respirations. Clear to auscultation. Breath sounds equal bilaterally. No wheezes, rales, or rhonchi. GASTROINTESTINAL: Abdomen soft, non-tender, nondistended. . Bowel sounds present. GENITOURINARY: Without palpable bladder distension. MUSCULOSKELETAL: Extremities without clubbing, cyanosis, or edema. Tenderness over left greater trochanter area. Arteriovenous shunt for dialysis and left upper extremity. LYMPHATICS: No palpable cervical or supraclavicular adenopathy. NEUROLOGICAL: Awake and alert. Answers questions, follows commands. Cognitively sharp. Moves all extremities (except he guards the left lower extremity).. PSYCHIATRIC: No obvious anxiety/depression. Slightly blunted affect. No apparent hallucinations or other psychotic thought process. . Diagnostic Tests Laboratory Laboratory Tests Test 05/20/16 10:09 Sodium Level 132 MEQ/L (136-145) Potassium Level 5.1 MEQ/L (3.5-5.1) Chloride Level 92 MEQ/L (98-107) Carbon Dioxide Level 27.1 MEQ/L (21.0-32.0) Anion Gap 13 MEQ/L (5-15) Blood Urea Nitrogen 102 MG/DL (7-18) Creatinine 9.57 MG/DL (0.60-1.30) Estimat Glomerular Filtration 6 ML/MIN (>89) Rate Random Glucose 152 MG/DL (74-106) Calcium Level 10.3 MG/DL (8.5-10.1) Phosphorus Level 8.9 MG/DL (2.5-4.9) Albumin 2.0 GM/DL (3.4-5.0) . Result Diagram: 05/20/16 1009 Procedures * Hemodialysis . Assessment and Plan Disease Oriented Problem List: (1) Femoral neck fracture Comment: Left side.. (2) ESRD (end stage renal disease) Comment: Has been receiving hemodialysis approximately 6-7 years. . (3) Dependent on hemodialysis (4) Aortic valve stenosis, critical (5) Mitral valve stenosis (6) Mitral valve regurgitation (7) Esophagitis, [place] grade B (8) Barretts esophagus Comment: Underwent EGD on 05/10/16. No cancer cells seen on biopsy. . (9) Anemia (10) DM (diabetes mellitus) (11) Hyperlipidemia (12) Schizophrenia Comment: History going back to the 1980s. History of multiple hospitalizations. Symptoms appear well-controlled at this time. . 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 PRN oxycodone 5mg-10mg is available q4 hours PRN, sparingly used. PRN hydromorphone 0.5mg IV q3 hours PRN is also available but has not been utilized. Patient does have a history of occasional chest pains. However, these most often happen at rest and do not radiate. No other known pain syndromes. . Pertinent Non-Medical Issues Psychosocial: Spiritual: Legal: Ethical issues impacting care: Important Contacts * Sherri Sin (sister and healthcare power of commonwealth attorney) H: [phone] C : [phone] * Fernando Herron (brother and healthcare surrogate) [phone] . Prognosis Patient has underlying schizophrenia, ES renal disease on hemodialysis, and Reza's esophagus. He has been a nursing facility resident for over 7 years due to his mental health issues. He has fractured his hip and pre-op w/u has revealed critical aortic stenosis. In addition to the risks of surgery, his sister reports that he has a history of not being very compliant with physical therapy. We will . Code Status: Full Code Plan == Code Status: FULL CODE == Decision Making: Patient appears to have a reasonably good understanding of his medical condition. He is able to tell me about his fracture and is able to tell me that he has a heart problem that makes surgery more difficult. He admits to feeling overwhelmed and wants decision making to be shared. He is fine with either his sister or his brother helping him. They are each listed as surrogates on separate documents in his medical record. I have personally spoken with the patient's sister -- hSerri Sin -- who is happy to serve in this capacity. I have also spoken with brother -- Fernando- who also agrees to serve. The two speak frequently and our medical team can speak to either one for guidance. Per patient's preference, I would recommend "shared decision making " including patient and at least one of the people below for all major decisions * Sherri Sin (POA for health care / sister) H: [phone] C: * Fernando Herron (brother/ health care surrogate) [phone] == Goals of medical treatment: Though patient has been in a retirement setting for 7 years, his schizophrenia has been reasonably well controlled and he has been taking care of his own ADLs there. He has been tolerating dialysis and there has been no evidence of ongoing decline. Patient and his sister have decided to proceed with hip surgery. == It was determined the patient was not a candidate for valve replacement until after he has recovered from hip surgery, at the same time he is high risk hip surgery because of his severe aortic valve stenosis. The patient decided yesterday 05/20/16 that he would like to proceed with surgery despite being high risk for cardiovascular complications, his sister agrees with her brothers decision. Met with orthopedics and surgical repair is planned for this week. == Pain: He denies any pain syndromes prior to his fall and hip fracture. He currently has orders in place for PO oxycodone and parenteral hydromorphone for his hip pain, sparingly used. Per patient, orders are adequate. No further recommendations at this time. == Palliative care will continue to follow to assist with symptom management and to further clarify goals of care as the clinical course evolves . Attestation To help prompt me to consider important information that might be impacting today's encounter and assessment, information from prior notes written by myself or my colleagues may have been "brought forward" into today's note. My signature on this note, however, is an attestation that I personally performed the exam, history, and/or decision-making noted today, and, unless otherwise indicated, the interactions with patient, family, and staff as well as the review of records all occurred today. I also attest that the listed assessment and stated plan reflect my best clinical judgment today based on the combination of historical information, prior notes, and today's exam/ interactions. When time spent is documented, it refers only to time spent today by the signer, or if indicated, combined time spent today by collaborating physician/nurse practitioner. Charlee Finch May 21, 2016 16:46
[2016-05-21 19:40] VITALS: BP 102/59; PULSE 101; RESP 18; TEMP 97.9; O2SAT 97
[2016-05-21] MEDS: FLUoxetine HCL 20 MG CAP PO SCH (21:00)
[2016-05-22 00:01] VITALS: BP 107/72; PULSE 97; RESP 19; TEMP 97.8; O2SAT 95
[2016-05-22] MEDS: HEPARIN SODIUM - SQ 10,000 UNITS/ML VIAL SQ SCH ×2 (06:00→12:56)
[2016-05-22 06:05] LABS: HEMATOCRIT 28.6 % (39.0-51.0); MEAN CELL VOLUME 88.7 FL (80.0-100.0); MEAN CORPUSCULAR HEMOGLOBIN 29.4 PG (27.0-34.0); MEAN CORPUSCULAR HGB CONC 33.2 % (32.0-36.0); PLATELET COUNT 424 TH/MM3 (150-450); RED BLOOD COUNT 3.22 MIL/MM3 (4.50-5.90); RED CELL DISTRIBUTION WIDTH 16.5 % (11.6-17.2); REVIEW FLAG FINAL; WHITE BLOOD COUNT 10.2 TH/MM3 (4.0-11.0)
[2016-05-22 06:07] LABS: BICARBONATE 29.8 MEQ/L (21.0-32.0); POTASSIUM 4.4 MEQ/L (3.5-5.1)
[2016-05-22] MEDS: INSULIN ASPART SUPPLEMENTAL SCALE SQ SCH ×4 (06:45→21:42)
[2016-05-22 08:00] VITALS: BP 101/60; PULSE 105; RESP 18; TEMP 96.3; O2SAT 96
[2016-05-22] MEDS: SEVELAMER CARBONATE 800 MG TAB PO SCH ×2 (08:00→12:00)
[2016-05-22] MEDS: METOPROLOL TARTRATE 25 MG TAB PO SCH ×2 (08:37→21:00)
[2016-05-22] MEDS: ZIPRASIDONE HCL 80 MG CAP PO SCH ×2 (08:37→21:00)
[2016-05-22] MEDS: DIVALPROEX SODIUM E.R. 500 MG TAB PO SCH ×2 (08:37→21:00)
[2016-05-22] MEDS: ZIPRASIDONE HCL 20 MG CAP PO SCH ×2 (08:42→21:00)
[2016-05-22] MEDS: PANTOPRAZOLE SOD 40 MG DELAYED RELEASE TAB PO SCH (08:44)
[2016-05-22] MEDS: LACTULOSE SYRUP 20 GM/30 ML CUP PO SCH (08:44)
[2016-05-22] MEDS: DOCUSATE SODIUM 100 MG CAP PO SCH (08:44)
[2016-05-22] MEDS: SENNOSIDES 8.6 MG TAB PO SCH (08:44)
[2016-05-22] MEDS ORDERED: SODIUM CHLORID 0.9% 500 ML IV SCH (09:00)
[2016-05-22] MEDS ORDERED: LACTATED RINGER'S 1000 ML IV SCH (09:00)
[2016-05-22] MEDS ORDERED: INSULIN HUMAN REGULAR 1,000 UNITS/10 ML VIAL SQ PRN (09:30)
[2016-05-22] MEDS ORDERED: METOPROLOL TARTRATE 25 MG TAB PO PRN (09:30)
[2016-05-22] MEDS ORDERED: POVIDONE IODINE 5% (ANTISEPSIS KIT) 4 APPLICATIONS EACH NARE SCH (09:30)
[2016-05-22] MEDS ORDERED: CHLORHEXIDINE GLUCONATE 2 % 1 PACK (2 CLOTHS) TOPICAL SCH (09:30)
--- NOTE | 2016-05-22 09:36 | HHI.NPPN ---
Subjective General Problems: Anemia, Hypertension Renal Failure: Chronic, End Stage Renal Disease Interval History Resting quietly. He is NPO for hip surgery today around 4pm. (Zahra Aguilar) Review of Systems General Constitutional: Fatigue (Zahra Aguilar) Musculoskeletal MS: Pain/Stiffness MS Remarks some numbness left leg, motor impaired secondary to pain (Zahra Aguilar) Objective Data Data 05/21/16 05/22/16 19:00 07:00 Intake Total 240 ml 480 ml Output Total 2500 ml 200 ml Balance -2260 ml 280 ml Intake Oral 240 ml 480 ml Output Urine Total 500 ml 200 ml Hemodialysis 2000 ml # Voids 1 # Bowel Movements 0 1 Vital Signs Date Time Temp Pulse Resp B/P Pulse Ox O2 Delivery O2 Flow Rate FiO2 05/22/16 00:01 97.8 97 19 107/72 95 05/21/16 20:00 97 Room Air 05/21/16 19:40 97.9 101 18 102/59 97 05/21/16 16:15 96.5 111 19 126/63 95 05/21/16 12:29 96.5 105 18 98/59 95 (Zahra Aguilar) -: 05/22/16 0511 05/22/16 0511 Physical Exam General Appearance: Well Developed, Well Nourished, No Acute Distress, Comfortable ( Zahra Aguilar) Eyes Eye Exam: Pupils Equal, Pupils Reactive (Zahra Aguilar) Throat Throat Exam: Oral Mucosa [place] & Moist (Zahra Aguilar) Pulmonary Resp Exam: Clear Bilaterally, Breath Sounds Equal, No Distress (Zahra gAuilar) Cardiology CV Exam: Normal Sinus Rhythm, Murmur CV Remarks III/ systolic murmur, mitral area, radiates to left axilla (Zahra Aguilar) Gastrointestinal/Abdomen GI Exam: Soft, Non-Tender, Bowel Sounds Present (Zahra Aguilar) Musculoskeletal MS Exam: Joints Intact, Normal Tone (Zahra Aguilar) Integumentary Skin Exam: Clear, Warm, Dry, Intact (Zahra Aguilar) Extremeties Extremities Exam: No Edema, Pedal Pulses Palpable (Zahra Aguilar) Neurologic Neuro Exam: Alert, Awake, Oriented, Speech Clear, Moving All Extremities ( Zahra Aguilar) Psychiatric Psych Exam: Appropriate Responses (Zahra Aguilar) Assessment/Plan Discussed Condition With: Patient Assessment Summary: Anemia of CKD, Hypertension, End Stage Renal Disease Problem List: (1) ESRD (end stage renal disease) Plan: 2L UF yesterday We will continue HD TTS. no acute renal concerns; access functions well Continue Renvela for metabolic bone disorder, follow up phosphorus periodically. Renal diet with no protein restriction when no longer NPO. Historically, patient has been non compliant with diet and medications, at least partially due to his bipolar illness. (2) Femoral neck fracture Plan: Seen by Orthopedics. surgical repair scheduled for today fall precautions (3) Murmur Plan: Echocardiogram revealed critical , endocarditis was ruled out he will need eventual valve replacement CV surgery has recommended outpatient follow up off antibiotics (4) Hypertension Plan: continue home medications. Monitor. (5) Anemia Plan: epogen with HD (Zahra Aguilar) Problem List: (1) ESRD (end stage renal disease) Plan: 2L UF yesterday We will continue HD TTS. no acute renal concerns; access functions well Continue Renvela for metabolic bone disorder, follow up phosphorus periodically. Renal diet with no protein restriction when no longer NPO. Historically, patient has been non compliant with diet and medications, at least partially due to his bipolar illness. (2) Femoral neck fracture Plan: Seen by Orthopedics. surgical repair scheduled for today fall precautions (3) Murmur Plan: Echocardiogram revealed critical , endocarditis was ruled out he will need eventual valve replacement CV surgery has recommended outpatient follow up off antibiotics (4) Hypertension Plan: continue home medications. Monitor. (5) Anemia Plan: epogen with HD Plan patient was seen and examined. Agree with above assessment and plan. (Felix Andersen MD) Problem Qualifiers (1) Femoral neck fracture: Qualified Code: S72.002A - Closed fracture of neck of left femur, initial encounter Zahra Aguilar May 22, 2016 09:36 Felix Andersen MD May 23, 2016 11:56
--- NOTE | 2016-05-22 09:55 | HHI.PR ---
Subjective Remarks f/u for hip fracture. patient has no complaints. he denied any CP, SOB, palpitations, lightheadedness or dizziness. he stated he felt that he is doing well. Objective Vitals Vital Signs Date Time Temp Pulse Resp B/P Pulse Ox O2 Delivery O2 Flow Rate FiO2 05/22/16 08:00 96.3 105 18 101/60 96 05/22/16 00:01 97.8 97 19 107/72 95 05/21/16 20:00 97 Room Air 05/21/16 19:40 97.9 101 18 102/59 97 05/21/16 16:15 96.5 111 19 126/63 95 05/21/16 12:29 96.5 105 18 98/59 95 I/O 05/21/16 05/21/16 05/21/16 05/22/16 05/22/16 05/22/16 07:00 15:00 23:00 07:00 15:00 23:00 Intake Total 240 ml 240 ml 240 ml 240 ml Output Total 2500 ml 200 ml Balance 240 ml -2260 ml 240 ml 40 ml Intake Oral 240 ml 240 ml 240 ml 240 ml Output Urine Total 500 ml 200 ml Hemodialysis 2000 ml # Voids 0 1 # Bowel Movements 1 0 1 0 Result Diagram: 05/22/16 0511 05/22/16 0511 Objective Remarks GENERAL: A weak-looking male in no acute distress.. CARDIOVASCULAR: Regular rate and rhythm. 4/6 systolic heart murmur in all areas. RESPIRATORY: Breath sounds equal bilaterally. No accessory muscle use. GASTROINTESTINAL: Abdomen soft, non-tender, nondistended. Procedures DAISY EGD Medications and IVs Current Medications Ondansetron HCl (Zofran Inj) 4 mg ONCE ONCE IVP Last administered on 03:31; Start 05/07/16 at 02:30; Stop 05/07/16 at 02:31; Status DC IV Flush (NS Flush) 2 ml UNSCH PRN IVF FLUSH AFTER USING IV ACCESS Last administered on 05/21/16 20:59; Start 05/07/16 at 02:30 Hydromorphone HCl (Dilaudid Pf Inj) 0.5 mg ONCE ONCE IVS Last administered on 05/07/16 03:31; Start 05/07/16 at 02:30; Stop 05/07/16 at 02:31; Status DC Ondansetron HCl 4 mg 4 mg ONCE ONCE IV PUSH Last administered on 05/07/16 02: 30; Start 05/07/16 at 02:30; Stop 05/07/16 at 02:31; Status DC Sodium Chloride (NS 1000 ml Inj) 1,000 ml @ 40 mls/hr Q24H IV Last administered on 05/07/16 05:14; Start 05/07/16 at 03:33; Stop 05/07/16 at 09:08 ; Status DC Acetaminophen (Tylenol) 650 mg Q4H PRN PO TEMP > 100.4; Start 05/07/16 at 03:45 Ondansetron HCl (Zofran Inj) 4 mg Q6H PRN IVP NAUSEA OR VOMITING Last administered on 05/09/16 00:04; Start 05/07/16 at 03:45 Magnesium Hydroxide (Milk Of Magnesia Liq) 30 ml Q12H PRN PO CONSTIPATION; Start 05/07/16 at 03:45 Acetaminophen (Tylenol) 650 mg Q6H PRN PO PAIN SCALE 1 TO 2 Last administered on 05/20/16 16:29; Start 05/07/16 at 03:45 Hydromorphone HCl (Dilaudid Pf Inj) 0.2 mg Q3H PRN IV Pain 3-5; if unable to take PO; Start 05/07/16 at 03:45; Stop 05/07/16 at 11:53; Status DC Hydromorphone HCl (Dilaudid Pf Inj) 0.5 mg Q3H PRN IV Breakthrough pain Last administered on 05/15/16 05:02; Start 05/07/16 at 03:45 Naloxone HCl 0.4 mg 0.4 mg UNSCH PRN IV SEE LABEL COMMENTS; Start 05/07/16 at 03:45 Sodium Chloride (NS 1000 ml Inj) 1,000 ml @ 0 mls/hr Q0M PRN IV For Prime & Rinse Back; Start 05/07/16 at 09:06 Heparin Sodium (Porcine) 8000 units 8,000 units UNSCH PRN IVF WITH DIALYSIS; Start 05/07/16 at 09:15 Sodium Chloride 1,000 ml @ 200 mls/hr Q5H PRN IV WITH DIALYSIS Last administered on 05/09/16 15:25; Start 05/07/16 at 09:06 Sodium Chloride (NS 1000 ml Inj) 1,000 ml @ 0 mls/hr Q0M PRN IV WITH DIALYSIS; Start 05/07/16 at 09:06 Mannitol (Mannitol Inj) 12.5 gm UNSCH PRN IV WITH DIALYSIS; Start 05/07/16 at 09:15 Albumin Human (Albumin 25% Inj) 25 gm UNSCH PRN IV WITH DIALYSIS; Start at 09:15 IV Flush (NS Flush) 5 ml UNSCH PRN IVF WITH DIALYSIS; Start 05/07/16 at 09:15 Heparin Sodium (Porcine) (Heparin Inj) UNSCH PRN .XX WITH DIALYSIS; Start at 09:15 Gentamicin Sulfate (Gentamicin (Dialysis) Inj) 20 mg UNSCH PRN IV WITH DIALYSIS ; Start 05/07/16 at 09:15 Ondansetron HCl (Zofran Inj) 4 mg UNSCH PRN IV WITH DIALYSIS Last administered on 05/07/16 22:47; Start 05/07/16 at 09:15 Acetaminophen (Tylenol) 650 mg UNSCH PRN PO for headach, pain, temp > 101F; Start 05/07/16 at 09:15 Diphenhydramine HCl (Benadryl) 25 mg UNSCH PRN PO for hives/itching/anaphylaxis ; Start 05/07/16 at 09:15 Nitroglycerin (Nitrostat Sl) 0.4 mg UNSCH PRN SL CHEST PAIN; Start 05/07/16 at 09:15 Clonidine (Catapres) 0.1 mg UNSCH PRN PO for BP > 180/100 X 2 readings; Start 05/07/16 at 09:15 Epoetin Elie (Epogen Inj) 10,000 units UNSCH PRN IV WITH DIALYSIS Last administered on 05/21/16 11:27; Start 05/07/16 at 09:15 Gelatin (Gelfoam 12 Mm/7 Mm Top) 1 foam UNSCH PRN TOP SEE LABEL COMMENTS Last administered on 05/21/16 11:27; Start 05/07/16 at 09:15 Sevelamer Carbonate (Renvela) 800 mg TIDAC PO ; Start 05/07/16 at 12:00; Stop at 14:20; Status DC Oxycodone HCl (Roxicodone) 10 mg Q4H PRN PO pain 6-10 Last administered on 05/21 19:55; Start 05/07/16 at 12:00 Oxycodone HCl (Roxicodone) 5 mg Q4H PRN PO pain 1-5 Last administered on 22:13; Start 05/07/16 at 12:00 Docusate Sodium (Colace) 100 mg BID PO Last administered on 05/21/16 21:00; Start 05/07/16 at 21:00 Sennosides (Senokot) 17.2 mg DAILY PO Last administered on 05/20/16 08:58; Start 05/08/16 at 09:00 Ziprasidone (Geodon) 80 mg BID PO Last administered on 05/22/16 08:37; Start 05/07/16 at 21:00 Divalproex Sodium (Depakote Er) 500 mg BID PO Last administered on 05/22/16 08 :37; Start 05/07/16 at 13:00 Fluoxetine HCl (PROzac) 20 mg HS PO Last administered on 05/21/16 21:00; Start 05/07/16 at 21:00 Metoprolol Tartrate (Lopressor) 12.5 mg Q12HR PO Last administered on 08:37; Start 05/07/16 at 21:00 Famotidine (Pepcid) 20 mg DAILY PO ; Start 05/08/16 at 09:00; Stop 05/08/16 at 12:49; Status DC Insulin Aspart (NovoLOG SUPPLEMENTAL SCALE) 1 ACHS SLIDING SCALE SQ Last administered on 05/20/16 11:00; Start 05/07/16 at 16:00 Ziprasidone (Geodon) 20 mg BID PO Last administered on 05/22/16 08:42; Start 05/07/16 at 21:00 Prochlorperazine Edisylate (Compazine Inj) 10 mg ONCE ONCE IVS ; Start at 22:30; Stop 05/07/16 at 22:31; Status DC Pantoprazole Sodium (Protonix Inj) 40 mg ONCE ONCE IV PUSH Last administered on 05/07/16 23:41; Start 05/07/16 at 23:30; Stop 05/07/16 at 23:31; Status DC Gentamicin Sulfate (Gentamicin Inj) 240 mg STK-MED ONCE .ROUTE ; Start 05/08/16 at 12:20; Stop 05/08/16 at 12:21; Status DC Pantoprazole Sodium (Protonix Inj) 40 mg Q24H IV PUSH Last administered on 05/13 13:37; Start 05/08/16 at 13:00; Stop 05/13/16 at 15:41; Status DC Miscellaneous Information 1 UNSCH PRN XX SEE LABEL COMMENTS; Start 05/08/16 at 14:15; Stop 05/11/16 at 14:14; Status DC Sevelamer Carbonate 1600 mg 1,600 mg TIDAC PO Last administered on 05/14/16 17 :17; Start 05/08/16 at 17:00; Stop 05/15/16 at 09:37; Status DC Ceftriaxone Sodium 1000 mg/ Sodium Chloride 100 ml @ 200 mls/hr Q24H IV ; Start 05/08/16 at 16:00; Stop 05/08/16 at 16:00; Status DC Ceftriaxone Sodium/Sodium Chloride (Rocephin Inj/NS Inj) 100 ml @ 200 mls/hr Q24H IV Last administered on 05/13/16 16:47; Start 05/08/16 at 16:00; Stop at 16:03; Status DC Bisacodyl (Dulcolax Supp) 10 mg ONCE ONCE RECTAL ; Start 05/09/16 at 10:15; Stop 05/09/16 at 10:20; Status DC Sodium Biphosphate/ Sodium Phosphate 133 ml 133 ml ONCE ONCE MI ; Start at 10:15; Stop 05/09/16 at 10:20; Status DC Lactated Ringer's 1,000 ml @ 30 mls/hr Q24H IV ; Start 05/10/16 at 00:30; Stop 05/20/16 at 11:32; Status DC Sodium Chloride (NS 500 ml Inj) 500 ml @ 30 mls/hr [id number] IV ; Start 05/10/16 at 00:30; Stop 05/11/16 at 00:29; Status DC Insulin Human Regular (NovoLIN R INJ) See Protocol Table ... UNSCH X1 PRN SQ SEE PROTOCOL; Start 05/10/16 at 00:30; Stop 05/11/16 at 00:29; Status DC Metoprolol Tartrate (Lopressor) 25 mg UNSCH X1 PRN PO SEE LABEL COMMENTS; Start 05/10/16 at 00:30; Stop 05/11/16 at 00:29; Status DC Lactulose (Lactulose Liq) 30 ml DAILY PO Last administered on 05/16/16 08:07; Start 05/10/16 at 09:00 Propofol (Diprivan 200 Mg/20 ml Inj) 60 mg STK-MED ONCE IV ; Start 05/10/16 at 09:43; Stop 05/10/16 at 09:59; Status DC Heparin Sodium (Porcine) (Heparin Inj) 5,000 units Q8HR SQ Last administered on 05/21/16 20:59; Start 05/10/16 at 14:00 Sodium Polystyrene Sulfonate (Kayexalate Liq) 15 gm ONCE ONCE PO Last administered on 05/13/16 16:47; Start 05/13/16 at 15:45; Stop 05/13/16 at 15:46 ; Status DC Pantoprazole Sodium (Protonix) 40 mg DAILY PO Last administered on 05/21/16 12 :23; Start 05/14/16 at 09:00 Sevelamer Carbonate (Renvela) 2,400 mg TIDAC PO Last administered on 05/20/16 08:57; Start 05/15/16 at 12:00; Stop 05/20/16 at 11:33; Status DC Sevelamer Carbonate 3200 mg 3,200 mg TIDAC PO Last administered on 05/21/16 16 :28; Start 05/20/16 at 12:00 Lactated Ringer's 1,000 ml @ 30 mls/hr Q24H IV ; Start 05/22/16 at 09:00 Sodium Chloride (NS 500 ml Inj) 500 ml @ 30 mls/hr [id number] IV ; Start 05/22/16 at 09:00; Stop 05/23/16 at 08:59 Insulin Human Regular (NovoLIN R INJ) See Protocol Table ... UNSCH X1 PRN SQ SEE PROTOCOL; Start 05/22/16 at 09:30; Stop 05/23/16 at 09:29 Metoprolol Tartrate (Lopressor) 25 mg UNSCH X1 PRN PO SEE LABEL COMMENTS; Start 05/22/16 at 09:30; Stop 05/23/16 at 09:29 Povidone Iodine (Betadine 5% Antisepsis Kit) 1 applic RESTORATION OFFICER EACH NARE ; Start 05/22/16 at 09:30; Stop 05/23/16 at 09:29 Chlorhexidine Gluconate (Chlorhexidine 2% Cloth) 3 pack RESTORATION OFFICER TOPICAL ; Start 05/22/16 at 09:30; Stop 05/23/16 at 09:29 A/P Problem List: (1) Femoral neck fracture ICD Code: S72.009A Status: Acute (2) Fall ICD Code: W19.XXXA Status: Acute (3) Schizophrenia ICD Code: F20.9 Status: Chronic (4) DM (diabetes mellitus) ICD Code: E11.9 Status: Chronic (5) Anemia ICD Code: D64.9 Status: Chronic (6) End stage renal failure on dialysis ICD Code: N18.6 Status: Chronic (7) Aortic valve stenosis, critical ICD Code: I35.0 Status: Acute (8) Mitral valve stenosis ICD Code: I05.0 Status: Acute (9) Mitral valve regurgitation ICD Code: I34.0 Status: Acute (10) Esophagitis, Morgan grade B ICD Code: K20.8 Status: Acute (11) Gastritis ICD Code: K29.70 Status: Acute (12) Dysphagia ICD Code: R13.10 Status: Acute Assessment and Plan Left femoral neck fracture status post mechanical fall -Cage Manager consulted and stated that patient is very high risk for surgery given the critical aortic valve stenosis. -There was a questionable vegetation on DAISY so infectious disease was consulted but workup was negative. Very unlikely endocarditis. -Appreciate CT surgery input, palliative care assistance for clarification of patient goals. -Patient understands the risks and benefits of surgery and understand that he is very high risk for cardiovascular complication during surgery but wants to proceed with surgery. -Patient scheduled for surgery today at 430 pm. Critical aortic stenosis, mod-severe MV regurg - s/p DAISY, CT surgery consulted. Patient not candidate for valve replacement until after recovery from hip surgery. -D/w Dr. Moy and Dr. dewey previously. Anemia of CKD - stable. Epogen per nephrology. Dysphagia - EGD 05/10 showed class B esophagitis, erythematous gastritis and inflammation in the duodenal bulb. Dysphagia has improved, tolerating mechanical soft diet with thin liquids. ESRD - cont HD per nephrology. T, Th, Sat. (followed by Dr. Felix Antony). Hyperkalemia - resolved. Schizophrenia - appears compensated at this time. Cont Geodon, fluoxetine and divalproex as per outpatient doses. DM -The pt is on an insulin sliding scale as an outpt. A1c is 5.8%. Cont SSI. PPx: Heparin SQ. Discharge Planning Patient scheduled for surgery today at 430pm. Problem Qualifiers (1) Femoral neck fracture: Qualified Code: S72.002A - Closed fracture of neck of left femur, initial encounter (2) Fall: Qualified Code: W19.XXXA - Fall, initial encounter Vivi Ewing MD May 22, 2016 09:55
[2016-05-22 11:35] VITALS: BP 103/60; PULSE 94; RESP 18; TEMP 97.4; O2SAT 92
[2016-05-22] MEDS ORDERED: fentaNYL CITRATE 250 MCG/5 ML AMP IV ONE (12:00)
[2016-05-22] MEDS ORDERED: MIDAZOLAM HCL 2 MG/2 ML VIAL IV ONE (12:00)
--- NOTE | 2016-05-22 12:48 | HHI.HCPN ---
Reason for visit a. To assist with evaluation and management of symptoms including: hip pain b. To assist medical decision maker(s) with: better understanding of current medical conditions; weighing benefits/burdens of medical treatment options; making medical treatment decisions. . Subjective/Interval History Mr Herron was seen and assessed in room 1610. His brother, Fernando, is also present. Alert and oriented, pleasantly engaged. Answering questions, following commands. Able to make needs know. Patient denies acute distress. Reporting some pain in his left hip with movement, but he feels his symptoms are well controlled at this time. Denies chest pain, palpations, dyspnea or light headedness. Afebrile, no leukocytosis. Hemodynamically stable. Heart rate 94-111 with audible murmur. Respirations are unlabored, breath sounds clear. Patient with ESRD on HD, nephrology fallowing. 05/22/16: BUN 76, CR 8.16, GFR 7. Patient and family decided to proceed with hip surgery, understanding that he is high risk for cardiac complications. Surgery is scheduled for 4:30 pm today. . . Family/friend interactions Met with patient and brother at bedside, discussed the decision to proceed with surgery and what recovery may look like. Questions answered to the best of my ability. . Advance Directives Living Will: Copy in medical record Health Care Surrogate: Copy in medical record Durable Power of Project Coordinator Rn: Copy in medical record Advance Directive Specifics Date completed: The patient has DURABLE POWER OF LIVESTOCK JUDGING COACH for healthcare documents and a living will dated 01/27/2008 scanned into the electronic medical record. There is a separate designation of healthcare surrogate document dated 2016 that is in the paper chart. . Health Care Surrogate(s): The DURABLE POWER OF LIVESTOCK JUDGING COACH for healthcare documents from 2007 with the primary is the patient's fatherPapa Herron (now ). The alternate is the patient's sisterSherri Sin. The health care surrogate designation document dated 03/25/2016 with the primary surrogate as the patient's brother Fernando Herron. The alternate is the patient's sister Sherri Sin. . Documented care wishes: The patient has completed a standard [place] living will. It indicates that if he is ever found to have a terminal or end-stage condition or is in a persistent vegetative state, he would not want life prolonging procedures. . Significant change in goals: Left hip surgery is scheduled for 4:30 today . Objective Vital Signs Date Time Temp Pulse Resp B/P Pulse Ox O2 Delivery O2 Flow Rate FiO2 05/22/16 11:35 97.4 94 18 103/60 92 05/22/16 08:00 96.3 105 18 101/60 96 05/22/16 00:01 97.8 97 19 107/72 95 05/21/16 20:00 97 Room Air 05/21/16 19:40 97.9 101 18 102/59 97 05/21/16 16:15 96.5 111 19 126/63 95 Intake & Output 05/22/16 05/22/16 07:00 19:00 Intake Total 480 ml Output Total 200 ml Balance 280 ml Intake Oral 480 ml Output Urine Total 200 ml # Voids 1 # Bowel Movements 1 . Physical Exam CONSTITUTIONAL/GENERAL: This is an adequately nourished patient, in no apparent distress. He is pleasant, conversational and answers questions appropriately. No evidence of pain while lying still. TUBES/LINES/DRAINS: Dialysis fistula left upper extremity; peripheral IV; SCDs SKIN: No jaundice. There are numerous erythematous lesions on both upper extremities. No other wounds seen anteriorly. Skin temperature appropriate. Not diaphoretic. HEAD: Atraumatic. Normocephalic. EYES: PERRLA. Extraocular motions intact. No scleral icterus. No injection or drainage. Fundi not examined. ENT: Hearing grossly normal. Nose without bleeding or purulent drainage. NECK: Trachea midline. CARDIOVASCULAR: Regular rate and rhythm without murmurs, gallops, or rubs. + murmur. No JVD. Peripheral pulses symmetric. RESPIRATORY/CHEST: Symmetric, unlabored respirations. Clear to auscultation. Breath sounds equal bilaterally. No wheezes, rales, or rhonchi. GASTROINTESTINAL: Abdomen soft, non-tender, nondistended. Normoactive bowel sounds x 4. GENITOURINARY: Without palpable bladder distension. MUSCULOSKELETAL: Extremities without clubbing, cyanosis, or edema. Tenderness over left greater trochanter area. Arteriovenous shunt for dialysis and left upper extremity. LYMPHATICS: No palpable cervical or supraclavicular adenopathy. NEUROLOGICAL: Awake and alert. Answers questions, follows commands. Cognitively sharp. Moves all extremities (except he guards the left lower extremity).. PSYCHIATRIC: No obvious anxiety/depression. Slightly blunted affect. No apparent hallucinations or other psychotic thought process. . Diagnostic Tests Laboratory Laboratory Tests Test 05/20/16 05/22/16 10:09 05:11 Sodium Level 132 MEQ/L 135 MEQ/L (136-145) (136-145) Potassium Level 5.1 MEQ/L 4.4 MEQ/L (3.5-5.1) (3.5-5.1) Chloride Level 92 MEQ/L 94 MEQ/L (98-107) (98-107) Carbon Dioxide Level 27.1 MEQ/L 29.8 MEQ/L (21.0-32.0) (21.0-32.0) Anion Gap 13 MEQ/L (5-15) 11 MEQ/L (5-15) Blood Urea Nitrogen 102 MG/DL 76 MG/DL (7-18) (7-18) Creatinine 9.57 MG/DL 8.16 MG/DL (0.60-1.30) (0.60-1.30) Estimat Glomerular Filtration 6 ML/MIN (>89) 7 ML/MIN (>89) Rate Random Glucose 152 MG/DL 144 MG/DL (74-106) (74-106) Calcium Level 10.3 MG/DL 10.8 MG/DL (8.5-10.1) (8.5-10.1) Phosphorus Level 8.9 MG/DL (2.5-4.9) Albumin 2.0 GM/DL (3.4-5.0) White Blood Count 10.2 TH/MM3 (4.0-11.0) Red Blood Count 3.22 MIL/MM3 (4.50-5.90) Hemoglobin 9.5 GM/DL (13.0-17.0) Hematocrit 28.6 % (39.0-51.0) Mean Corpuscular Volume 88.7 FL (80.0-100.0) Mean Corpuscular Hemoglobin 29.4 PG (27.0-34.0) Mean Corpuscular Hemoglobin 33.2 % Concent (32.0-36.0) Red Cell Distribution Width 16.5 % (11.6-17.2) Platelet Count 424 TH/MM3 (150-450) Mean Platelet Volume 8.8 FL (7.0-11.0) . Result Diagram: 05/22/1651005/22/16 0511 Procedures * Hemodialysis . Assessment and Plan Disease Oriented Problem List: (1) Femoral neck fracture Comment: Left side.. (2) ESRD (end stage renal disease) Comment: Has been receiving hemodialysis approximately 6-7 years. . (3) Dependent on hemodialysis (4) Aortic valve stenosis, critical (5) Mitral valve stenosis (6) Mitral valve regurgitation (7) Esophagitis, Nance grade B (8) Barretts esophagus Comment: Underwent EGD on 05/10/16. No cancer cells seen on biopsy. . (9) Anemia (10) DM (diabetes mellitus) (11) Hyperlipidemia (12) Schizophrenia Comment: History going back to the 1980s. History of multiple hospitalizations. Symptoms appear well-controlled at this time. . 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 PRN oxycodone 5mg-10mg is available q4 hours PRN, sparingly used. PRN hydromorphone 0.5mg IV q3 hours PRN is also available but has not been utilized. Patient does have a history of occasional chest pains. However, these most often happen at rest and do not radiate. No other known pain syndromes. . Pertinent Non-Medical Issues Psychosocial: Spiritual: Legal: Ethical issues impacting care: Important Contacts * Sherri Vernone (sister and healthcare power of purse seiner) H: [phone] C : [phone] * Fernando Germaine (brother and healthcare surrogate) [phone] . Prognosis Patient has underlying schizophrenia, ES renal disease on hemodialysis, and Reza's esophagus. He has been a nursing facility resident for over 7 years due to his mental health issues. He has fractured his hip and pre-op w/u has revealed critical aortic stenosis. In addition to the risks of surgery, his sister reports that he has a history of not being very compliant with physical therapy. We will . Code Status: Full Code Plan == Code Status: FULL CODE == Decision Making: Patient appears to have a reasonably good understanding of his medical condition. He is able to tell me about his fracture and is able to tell me that he has a heart problem that makes surgery more difficult. He admits to feeling overwhelmed and wants decision making to be shared. He is fine with either his sister or his brother helping him. They are each listed as surrogates on separate documents in his medical record. I have personally spoken with the patient's sister -- Sherri Sin -- who is happy to serve in this capacity. I have also spoken with brother -- Fernando- who also agrees to serve. The two speak frequently and our medical team can speak to either one for guidance. Per patient's preference, I would recommend "shared decision making " including patient and at least one of the people below for all major decisions * Sherri Sin (POA for health care / sister) H: [phone] C: [phone] * Fernando Herron (brother/ health care surrogate) [phone] == Goals of medical treatment: Though patient has been in a group home setting for 7 years, his schizophrenia has been reasonably well controlled and he has been taking care of his own ADLs there. He has been tolerating dialysis and there has been no evidence of ongoing decline. Patient and his family decided to proceed with hip surgery which is scheduled for 4:30 today. == It was determined the patient was not a candidate for valve replacement until after he has recovered from hip surgery, at the same time he is high risk hip surgery because of his severe aortic valve stenosis. The patient decided yesterday 05/20/16 that he would like to proceed with surgery despite being high risk for cardiovascular complications, his sister agrees with her brothers decision. Met with orthopedics and surgical repair is planned for this week. == Pain: He denies any pain syndromes prior to his fall and hip fracture. He currently has orders in place for PO oxycodone and parenteral hydromorphone for his hip pain, sparingly used. Per patient, orders are adequate. No further recommendations at this time. == Palliative care will continue to follow to assist with symptom management and to further clarify goals of care as the clinical course evolves . Attestation To help prompt me to consider important information that might be impacting today's encounter and assessment, information from prior notes written by myself or my colleagues may have been "brought forward" into today's note. My signature on this note, however, is an attestation that I personally performed the exam, history, and/or decision-making noted today, and, unless otherwise indicated, the interactions with patient, family, and staff as well as the review of records all occurred today. I also attest that the listed assessment and stated plan reflect my best clinical judgment today based on the combination of historical information, prior notes, and today's exam/ interactions. When time spent is documented, it refers only to time spent today by the signer, or if indicated, combined time spent today by collaborating physician/nurse practitioner. . Charlee Finch May 22, 2016 12:48
[2016-05-22] MEDS ORDERED: NEOSTIGMINE 3 MG/3 ML SYR IV ONE (14:39)
[2016-05-22] MEDS ORDERED: NORMOSOL R INJ 1,000 ML IV ONE (14:39)
[2016-05-22] MEDS ORDERED: ONDANSETRON HCL 4 MG/2 ML VIAL IV PUSH ONE (14:39)
[2016-05-22] MEDS ORDERED: PHENYLEPH/NS 1000 MCG/10 ML SYR IV ONE (14:39)
[2016-05-22] MEDS ORDERED: PROPOFOL 200 MG/20 ML AMP IV ONE (14:39)
[2016-05-22] MEDS ORDERED: SODIUM CHLORID 0.9% 500 ML INJ 500 ML IV ONE (14:39)
[2016-05-22] MEDS ORDERED: GENTAMICIN SULFATE 80 MG/2 ML VIAL IRRIGATION ONE (17:44)
--- NOTE | 2016-05-22 19:11 | PD.OP ---
cc: Dimitri Riley Jr., MD Operative Report Date of Surgery: May 22, 2016 Preoperative Diagnosis: Left displaced femoral neck fracture Postoperative Diagnosis: Same Procedure: Left hip hemiarthroplasty Anesthesia: Gen. Surgeon: Dimitri Riley Optometric Coordinator(s): Staff Resident Surgeon: None Operation and Findings: DRAIN: none DETAILS OF PROCEDURE This patient was brought into the operating room and placed on the OR table. The patient was given anesthesia. The patient received IV antibiotics. The patient was then placed in lateral decubitus position. The left hip and leg were prepped with alcohol, followed by Hibiclens and draped in a usual sterile fashion. Clean air was used for this procedure. Time out procedure was performed. The procedure began with a 5 inch incision over the posterolateral hip. The subcutaneous tissue was dissected with the Bovie. The iliotibial band were split in line with fibers. The Charnley retractor was placed. The piriformis and external rotators were released from the femur and tagged with a #1 Vicryl suture. The capsule is now incised and tagged with #1 Vicryl. The femoral neck fracture was now visualized. A corkscrew was now used to remove the femoral head. The femoral head was sized and measured. Soft tissue was now protected. The hip skid was placed underneath the femoral neck. An oscillating saw was used to make a femoral neck cut. At this point attention was turned to preparation of the left proximal femur. A box osteotome was used to remove the lateral cortex of the femoral neck. The T- handle reamer was used to open the femoral canal. Next, the canal was broached. A lateralizing reamer was used to help lateralize the prosthesis. At this point a trial head and neck were placed. The hip was reduced. The patient was found to have excellent stability with good range of motion. Trial components were removed. Soft tissue and bone were thoroughly irrigated. A Corail stem was now opened. The stem was now impacted into the proximal femur. Care was taken to keep appropriate anteversion. The head and neck were now impacted onto the stem. The hip was again reduced. The hip was found to have good range of motion and good stability. Leg lengths were clinically equal. The wound was thoroughly irrigated. The capsule, piriformis and iliotibial band were closed with #1 Vicryl. Subcutaneous tissue was closed with 2-0 Vicryl. The skin was closed with missael. A sterile dressing was applied with Primapore. The patient was placed into a knee immobilizer. The patient was awakened and transferred to the recovery room in stable condition. Needle and sponge counts were correct. IMPLANTS USED DePuy Corail size 14 high offset stem with size 50 bipolar head and 28+ 5mm POSTP-OP PLAN OF ACTIVITY Antibiotics: Ancef Antiocoagulation: Lovenox Weight bearing status: WBAT PT/OT: Making progress with PT. Encourage at least 3 times a day Dressing: Change daily, by RN starting postop day 2. Knee immobilizer on at all times. Abduction pillow in place when in bed. Dispo: expected discharge 2-3 days. Likely inpatient rehabilitation. Dimitri Riley Jr., MD May 22, 2016 19:11
[2016-05-22] MEDS ORDERED: PERC5TAB12 PO (19:13)
[2016-05-22] MEDS ORDERED: PROMETHAZINE HCL 25 MG TAB PO PRN (19:15)
[2016-05-22] MEDS ORDERED: ZOLPIDEM TARTRATE 5 MG TAB PO PRN (19:15)
[2016-05-22] MEDS ORDERED: SODIUM CHLORIDE 0.9% FLUSH 10 ML FLUSH IV FLUSH PRN (19:15)
[2016-05-22] MEDS ORDERED: oxyCODONE/ACETAMINOPHEN 5 MG/325 MG TAB PO PRN ×2 (19:15)
[2016-05-22] MEDS ORDERED: TRANEXAMIC ACID IV SCH (19:15)
[2016-05-22] MEDS ORDERED: Post-op Orders (for Pharmacy) MISC XX ONE (19:15)
[2016-05-22] MEDS ORDERED: SODIUM CHLORIDE 0.9% IV SCH (19:15)
[2016-05-22 19:35] VITALS: BP 86/40; PULSE 80; RESP 16; TEMP 97.7; O2SAT 95
[2016-05-22] MEDS: SODIUM CHLORIDE 0.9% FLUSH 10 ML FLUSH IV FLUSH SCH (21:00)
[2016-05-22] MEDS ORDERED: DO NOT ADM ANY ANTICOAGULANT DRUGS PRN (21:00)
[2016-05-22] MEDS: FLUoxetine HCL 20 MG CAP PO SCH (21:00)
[2016-05-22 21:41] VITALS: BP 106/55; PULSE 88; RESP 17; TEMP 96.9; O2SAT 99
--- NOTE | 2016-05-22 22:20 | RADRPT ---
EXAM DATE/TIME: 05/22/2016 19:55 [facility] COMPARISON: HIP LEFT (AP&LAT 2/3VWS) W AP PELVIS, May 07, 2016, 2:46. INDICATIONS : Post op left hip. MEDICAL HISTORY : None. SURGICAL HISTORY : None. ENCOUNTER: Initial ACUITY: 1 day PAIN SCORE: Non-responsive. LOCATION: Left hip FINDINGS: The patient is status post left hip replacement. The prosthesis is in good position. CONCLUSION: 1. Status post left hip replacement with prosthesis in good position. Chris Oakley MD on May 22, 2016 at 22:05 Board Certified Radiologist. This report was verified electronically.
[2016-05-23] MEDS: ONDANSETRON HCL 4 MG/2 ML VIAL IV PRN ×2 (03:05→17:51)
[2016-05-23 04:35] VITALS: BP 108/67; PULSE 97; RESP 20; TEMP 96; O2SAT 96
[2016-05-23] MEDS: INSULIN ASPART SUPPLEMENTAL SCALE SQ SCH ×4 (06:57→20:51)
[2016-05-23 08:00] VITALS: BP 95/64; PULSE 99; RESP 19; TEMP 96.7; O2SAT 95
[2016-05-23] MEDS: SEVELAMER CARBONATE 800 MG TAB PO SCH ×3 (08:00→17:00)
[2016-05-23] MEDS: ENOXAPARIN SODIUM 30 MG/0.3 ML SYRINGE SQ SCH ×2 (08:00→20:50)
[2016-05-23] MEDS: ONDANSETRON HCL 4 MG/2 ML VIAL IVP PRN ×2 (08:59→23:43)
[2016-05-23] MEDS: DIVALPROEX SODIUM E.R. 500 MG TAB PO SCH ×2 (09:00→20:49)
[2016-05-23] MEDS: ZIPRASIDONE HCL 20 MG CAP PO SCH ×2 (09:00→20:50)
[2016-05-23] MEDS: LACTULOSE SYRUP 20 GM/30 ML CUP PO SCH (09:00)
[2016-05-23] MEDS: SENNOSIDES 8.6 MG TAB PO SCH (09:00)
[2016-05-23] MEDS: ZIPRASIDONE HCL 80 MG CAP PO SCH ×2 (09:00→20:50)
[2016-05-23] MEDS: METOPROLOL TARTRATE 25 MG TAB PO SCH ×2 (09:00→20:51)
--- NOTE | 2016-05-23 09:16 | HHI.NPPN ---
Subjective General Problems: Anemia, Hypertension Renal Failure: Chronic, End Stage Renal Disease Interval History He had surgery on left hip yesterday. Tolerated procedure well. Seen during dialysis today. (Zahra Aguilar) Review of Systems General Constitutional: Fatigue (Zahra Aguilar) Musculoskeletal MS: Pain/Stiffness MS Remarks some numbness left leg, motor impaired secondary to pain (Zahra Aguilar) Objective Data Data 05/22/16 05/23/16 19:00 07:00 Intake Total 0 ml 1920 ml Output Total 150 ml 1600 ml Balance -150 ml 320 ml Intake Oral 0 ml 360 ml IV Total 510 ml Packed Cells 250 ml Other 800 ml Output Urine Total 150 ml 850 ml Estimated Blood Loss 600 ml Other 150 ml # Bowel Movements 1 0 Vital Signs Date Time Temp Pulse Resp B/P Pulse Ox O2 Delivery O2 Flow Rate FiO2 05/23/16 08:00 96.7 99 19 95/64 95 05/23/16 07:15 Room Air 05/23/16 04:35 96.0 97 20 108/67 96 05/22/16 21:58 99 Nasal Cannula 2.00 05/22/16 21:41 96.9 88 17 106/55 99 05/22/16 21:30 97.7 87 16 100/35 97 Nasal Cannula 2 05/22/16 21:15 85 16 93/59 95 Nasal Cannula 2 05/22/16 21:00 84 16 96/50 96 Nasal Cannula 2 05/22/16 20:45 82 16 93/60 96 Nasal Cannula 2 05/22/16 20:30 84 18 107/60 96 Nasal Cannula 2 05/22/16 20:15 78 18 94/55 95 Nasal Cannula 2 05/22/16 20:00 78 16 116/67 97 Nasal Cannula 2 05/22/16 19:45 84 16 115/72 98 Nasal Cannula 2 05/22/16 19:35 97.7 80 16 86/40 95 05/22/16 19:35 97.5 77 20 118/52 97 Nasal Cannula 2 05/22/16 11:35 97.4 94 18 103/60 92 (Zahra Aguilar) -: 05/22/16 0511 05/22/16 0511 Physical Exam General Appearance: Well Developed, Well Nourished, No Acute Distress, Comfortable ( Zahra Aguilar) Eyes Eye Exam: Pupils Equal, Pupils Reactive (Zahra Aguilar) Throat Throat Exam: Oral Mucosa Hiltonia & Moist (Zahra Aguilar) Pulmonary Resp Exam: Clear Bilaterally, Breath Sounds Equal, No Distress (Zahra Aguilar) Cardiology CV Exam: Normal Sinus Rhythm, Murmur CV Remarks III/ systolic murmur, mitral area, radiates to left axilla (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) Gastrointestinal/Abdomen GI Exam: Soft, Non-Tender, Bowel Sounds Present (Zahra Aguilar) Musculoskeletal MS Exam: Joints Intact, Normal Tone (Zahra Aguilar) Integumentary Skin Exam: Clear, Warm, Dry, Intact (Zahra Aguilar) Extremeties Extremities Exam: No Edema, Pedal Pulses Palpable (Zahra Aguilar) Neurologic Neuro Exam: Alert, Awake, Oriented, Speech Clear, Moving All Extremities ( Zahra Aguilar) Psychiatric Psych Exam: Appropriate Responses (Zahra Aguilar) Assessment/Plan Discussed Condition With: Patient Assessment Summary: Anemia of CKD, Hypertension, End Stage Renal Disease Problem List: (1) ESRD (end stage renal disease) Plan: seen during dialysis today on a 2K, 350 BFR, goal 2L We will continue HD TTS. no acute renal concerns; access functions well Renal diet with no protein restriction avoid IVF Historically, patient has been non compliant with diet and medications, at least partially due to his bipolar illness. (2) Femoral neck fracture Plan: Seen by Orthopedics. s/p left hip hemiarthroplasty 05/23 fall precautions likely will need rehab after discharge (3) Murmur Plan: Echocardiogram revealed critical , endocarditis was ruled out he will need eventual valve replacement CV surgery has recommended outpatient follow up (4) Hypertension Plan: continue home medications. Monitor. (5) Anemia Plan: epogen with HD (6) Metabolic bone disease Plan: on high dose renvela repeat phosphorus in am (Zahra AguilarP) Plan patient was seen and examined. Seen during dialysis, vomited during dialysis. Zofran was given. Hemoglobin is worse, may need blood transfusion. On Epogen. ( Felix Andersen MD) Problem Qualifiers (1) Femoral neck fracture: Qualified Code: S72.002A - Closed fracture of neck of left femur, initial encounter Zahra Aguilar May 23, 2016 09:16 Felix Andersen MD May 23, 2016 12:04
[2016-05-23 09:51] VITALS: O2SAT 96
[2016-05-23] MEDS: ALBUMIN HUMAN 25% 25 GM/100 ML BAGP IV PRN (11:07)
[2016-05-23] MEDS: EPOETIN ALFA 10,000 UNITS/ML VIAL IV PRN (11:09)
[2016-05-23 12:30] VITALS: BP 83/50; PULSE 109; RESP 20; TEMP 96.9; O2SAT 98
--- NOTE | 2016-05-23 12:37 | HHI.PR ---
Subjective Remarks Follow-up for left hip fracture Patient seen in dialysis. Patient has nausea and vomiting since post surgery. Emesis is clear in color. Deny any abdominal pain. Patient remains afebrile and no other acute events. Patient has no other complaints. Objective Vitals Vital Signs Date Time Temp Pulse Resp B/P Pulse Ox O2 Delivery O2 Flow Rate FiO2 05/23/16 09:51 96 21 05/23/16 08:00 96.7 99 19 95/64 95 05/23/16 07:15 Room Air 05/23/16 04:35 96.0 97 20 108/67 96 05/22/16 21:58 99 Nasal Cannula 2.00 05/22/16 21:41 96.9 88 17 106/55 99 05/22/16 21:30 97.7 87 16 100/35 97 Nasal Cannula 2 05/22/16 21:15 85 16 93/59 95 Nasal Cannula 2 05/22/16 21:00 84 16 96/50 96 Nasal Cannula 2 05/22/16 20:45 82 16 93/60 96 Nasal Cannula 2 05/22/16 20:30 84 18 107/60 96 Nasal Cannula 2 05/22/16 20:15 78 18 94/55 95 Nasal Cannula 2 05/22/16 20:00 78 16 116/67 97 Nasal Cannula 2 05/22/16 19:45 84 16 115/72 98 Nasal Cannula 2 05/22/16 19:35 97.7 80 16 86/40 95 05/22/16 19:35 97.5 77 20 118/52 97 Nasal Cannula 2 I/O 05/22/16 05/22/16 05/22/16 05/23/16 05/23/16 05/23/16 07:00 15:00 23:00 07:00 15:00 23:00 Intake Total 240 ml 0 ml 1490 ml 430 ml Output Total 200 ml 150 ml 1400 ml 200 ml Balance 40 ml -150 ml 90 ml 230 ml Intake Oral 240 ml 0 ml 240 ml 120 ml IV Total 200 ml 310 ml Packed Cells 250 ml Other 800 ml Output Urine Total 200 ml 150 ml 650 ml 200 ml Estimated Blood Loss 600 ml Other 150 ml # Bowel Movements 0 1 0 0 Result Diagram: 05/22/1651005/22/16510 Objective Remarks GENERAL: A weak-looking male in no acute distress.. CARDIOVASCULAR: Regular rate and rhythm. 4/6 systolic heart murmur in all areas. RESPIRATORY: Breath sounds equal bilaterally. No accessory muscle use. GASTROINTESTINAL: Abdomen soft, mild epigastric pain to palpation, nondistended. Procedures DAISY EGD Medications and IVs Current Medications Ondansetron HCl (Zofran Inj) 4 mg ONCE ONCE IVP Last administered on 03:31; Start 05/07/16 at 02:30; Stop 05/07/16 at 02:31; Status DC IV Flush (NS Flush) 2 ml UNSCH PRN IVF FLUSH AFTER USING IV ACCESS Last administered on 05/21/16 20:59; Start 05/07/16 at 02:30; Stop 05/22/16 at 19:31 ; Status DC Hydromorphone HCl (Dilaudid Pf Inj) 0.5 mg ONCE ONCE IVS Last administered on 05/07/16 03:31; Start 05/07/16 at 02:30; Stop 05/07/16 at 02:31; Status DC Ondansetron HCl 4 mg 4 mg ONCE ONCE IV PUSH Last administered on 05/07/16 02: 30; Start 05/07/16 at 02:30; Stop 05/07/16 at 02:31; Status DC Sodium Chloride (NS 1000 ml Inj) 1,000 ml @ 40 mls/hr Q24H IV Last administered on 05/07/16 05:14; Start 05/07/16 at 03:33; Stop 05/07/16 at 09:08 ; Status DC Acetaminophen (Tylenol) 650 mg Q4H PRN PO TEMP > 100.4; Start 05/07/16 at 03:45 Ondansetron HCl (Zofran Inj) 4 mg Q6H PRN IVP NAUSEA OR VOMITING Last administered on 05/23/16 08:59; Start 05/07/16 at 03:45 Magnesium Hydroxide (Milk Of Magnesia Liq) 30 ml Q12H PRN PO CONSTIPATION; Start 05/07/16 at 03:45 Acetaminophen (Tylenol) 650 mg Q6H PRN PO PAIN SCALE 1 TO 2 Last administered on 05/20/16 16:29; Start 05/07/16 at 03:45 Hydromorphone HCl (Dilaudid Pf Inj) 0.2 mg Q3H PRN IV Pain 3-5; if unable to take PO; Start 05/07/16 at 03:45; Stop 05/07/16 at 11:53; Status DC Hydromorphone HCl (Dilaudid Pf Inj) 0.5 mg Q3H PRN IV Breakthrough pain Last administered on 05/15/16 05:02; Start 05/07/16 at 03:45; Stop 05/22/16 at 19:31 ; Status DC Naloxone HCl 0.4 mg 0.4 mg UNSCH PRN IV SEE LABEL COMMENTS; Start 05/07/16 at 03:45 Sodium Chloride (NS 1000 ml Inj) 1,000 ml @ 0 mls/hr Q0M PRN IV For Prime & Rinse Back; Start 05/07/16 at 09:06 Heparin Sodium (Porcine) 8000 units 8,000 units UNSCH PRN IVF WITH DIALYSIS; Start 05/07/16 at 09:15 Sodium Chloride 1,000 ml @ 200 mls/hr Q5H PRN IV WITH DIALYSIS Last administered on 05/09/16 15:25; Start 05/07/16 at 09:06 Sodium Chloride (NS 1000 ml Inj) 1,000 ml @ 0 mls/hr Q0M PRN IV WITH DIALYSIS; Start 05/07/16 at 09:06 Mannitol (Mannitol Inj) 12.5 gm UNSCH PRN IV WITH DIALYSIS; Start 05/07/16 at 09:15 Albumin Human (Albumin 25% Inj) 25 gm UNSCH PRN IV WITH DIALYSIS Last administered on 05/23/16 11:07; Start 05/07/16 at 09:15 IV Flush (NS Flush) 5 ml UNSCH PRN IVF WITH DIALYSIS; Start 05/07/16 at 09:15 Heparin Sodium (Porcine) (Heparin Inj) UNSCH PRN .XX WITH DIALYSIS; Start at 09:15 Gentamicin Sulfate (Gentamicin (Dialysis) Inj) 20 mg UNSCH PRN IV WITH DIALYSIS ; Start 05/07/16 at 09:15 Ondansetron HCl (Zofran Inj) 4 mg UNSCH PRN IV WITH DIALYSIS Last administered on 05/23/16 03:05; Start 05/07/16 at 09:15 Acetaminophen (Tylenol) 650 mg UNSCH PRN PO for headach, pain, temp > 101F; Start 05/07/16 at 09:15 Diphenhydramine HCl (Benadryl) 25 mg UNSCH PRN PO for hives/itching/anaphylaxis ; Start 05/07/16 at 09:15 Nitroglycerin (Nitrostat Sl) 0.4 mg UNSCH PRN SL CHEST PAIN; Start 05/07/16 at 09:15 Clonidine (Catapres) 0.1 mg UNSCH PRN PO for BP > 180/100 X 2 readings; Start 05/07/16 at 09:15 Epoetin Elie (Epogen Inj) 10,000 units UNSCH PRN IV WITH DIALYSIS Last administered on 05/23/16 11:09; Start 05/07/16 at 09:15 Gelatin (Gelfoam 12 Mm/7 Mm Top) 1 foam UNSCH PRN TOP SEE LABEL COMMENTS Last administered on 05/21/16 11:27; Start 05/07/16 at 09:15 Sevelamer Carbonate (Renvela) 800 mg TIDAC PO ; Start 05/07/16 at 12:00; Stop at 14:20; Status DC Oxycodone HCl (Roxicodone) 10 mg Q4H PRN PO pain 6-10 Last administered on 05/21 19:55; Start 05/07/16 at 12:00; Stop 05/22/16 at 19:26; Status DC Oxycodone HCl (Roxicodone) 5 mg Q4H PRN PO pain 1-5 Last administered on 22:13; Start 05/07/16 at 12:00; Stop 05/22/16 at 19:26; Status DC Docusate Sodium (Colace) 100 mg BID PO Last administered on 05/21/16 21:00; Start 05/07/16 at 21:00; Stop 05/22/16 at 19:28; Status DC Sennosides (Senokot) 17.2 mg DAILY PO Last administered on 05/20/16 08:58; Start 05/08/16 at 09:00 Ziprasidone (Geodon) 80 mg BID PO Last administered on 05/22/16 21:00; Start 05/07/16 at 21:00 Divalproex Sodium (Depakote Er) 500 mg BID PO Last administered on 05/22/16 21 :00; Start 05/07/16 at 13:00 Fluoxetine HCl (PROzac) 20 mg HS PO Last administered on 05/22/16 21:00; Start 05/07/16 at 21:00 Metoprolol Tartrate (Lopressor) 12.5 mg Q12HR PO Last administered on 08:37; Start 05/07/16 at 21:00 Famotidine (Pepcid) 20 mg DAILY PO ; Start 05/08/16 at 09:00; Stop 05/08/16 at 12:49; Status DC Insulin Aspart (NovoLOG SUPPLEMENTAL SCALE) 1 ACHS SLIDING SCALE SQ Last administered on 05/22/16 21:00; Start 05/07/16 at 16:00 Ziprasidone (Geodon) 20 mg BID PO Last administered on 05/22/16 21:00; Start 05/07/16 at 21:00 Prochlorperazine Edisylate (Compazine Inj) 10 mg ONCE ONCE IVS ; Start at 22:30; Stop 05/07/16 at 22:31; Status DC Pantoprazole Sodium (Protonix Inj) 40 mg ONCE ONCE IV PUSH Last administered on 05/07/16 23:41; Start 05/07/16 at 23:30; Stop 05/07/16 at 23:31; Status DC Gentamicin Sulfate (Gentamicin Inj) 240 mg STK-MED ONCE .ROUTE ; Start 05/08/16 at 12:20; Stop 05/08/16 at 12:21; Status DC Pantoprazole Sodium (Protonix Inj) 40 mg Q24H IV PUSH Last administered on 05/13 13:37; Start 05/08/16 at 13:00; Stop 05/13/16 at 15:41; Status DC Miscellaneous Information 1 UNSCH PRN XX SEE LABEL COMMENTS; Start 05/08/16 at 14:15; Stop 05/11/16 at 14:14; Status DC Sevelamer Carbonate 1600 mg 1,600 mg TIDAC PO Last administered on 05/14/16 17 :17; Start 05/08/16 at 17:00; Stop 05/15/16 at 09:37; Status DC Ceftriaxone Sodium 1000 mg/ Sodium Chloride 100 ml @ 200 mls/hr Q24H IV ; Start 05/08/16 at 16:00; Stop 05/08/16 at 16:00; Status DC Ceftriaxone Sodium/Sodium Chloride (Rocephin Inj/NS Inj) 100 ml @ 200 mls/hr Q24H IV Last administered on 05/13/16 16:47; Start 05/08/16 at 16:00; Stop at 16:03; Status DC Bisacodyl (Dulcolax Supp) 10 mg ONCE ONCE RECTAL ; Start 05/09/16 at 10:15; Stop 05/09/16 at 10:20; Status DC Sodium Biphosphate/ Sodium Phosphate 133 ml 133 ml ONCE ONCE [place] ; Start at 10:15; Stop 05/09/16 at 10:20; Status DC Lactated Ringer's 1,000 ml @ 30 mls/hr Q24H IV ; Start 05/10/16 at 00:30; Stop 05/20/16 at 11:32; Status DC Sodium Chloride (NS 500 ml Inj) 500 ml @ 30 mls/hr [id number] IV ; Start 05/10/16 at 00:30; Stop 05/11/16 at 00:29; Status DC Insulin Human Regular (NovoLIN R INJ) See Protocol Table ... UNSCH X1 PRN SQ SEE PROTOCOL; Start 05/10/16 at 00:30; Stop 05/11/16 at 00:29; Status DC Metoprolol Tartrate (Lopressor) 25 mg UNSCH X1 PRN PO SEE LABEL COMMENTS; Start 05/10/16 at 00:30; Stop 05/11/16 at 00:29; Status DC Lactulose (Lactulose Liq) 30 ml DAILY PO Last administered on 05/16/16 08:07; Start 05/10/16 at 09:00 Propofol (Diprivan 200 Mg/20 ml Inj) 60 mg STK-MED ONCE IV ; Start 05/10/16 at 09:43; Stop 05/10/16 at 09:59; Status DC Heparin Sodium (Porcine) (Heparin Inj) 5,000 units Q8HR SQ Last administered on 05/21/16 20:59; Start 05/10/16 at 14:00; Stop 05/22/16 at 22:44; Status DC Sodium Polystyrene Sulfonate (Kayexalate Liq) 15 gm ONCE ONCE PO Last administered on 05/13/16 16:47; Start 05/13/16 at 15:45; Stop 05/13/16 at 15:46 ; Status DC Pantoprazole Sodium (Protonix) 40 mg DAILY PO Last administered on 05/21/16 12 :23; Start 05/14/16 at 09:00 Sevelamer Carbonate (Renvela) 2,400 mg TIDAC PO Last administered on 05/20/16 08:57; Start 05/15/16 at 12:00; Stop 05/20/16 at 11:33; Status DC Sevelamer Carbonate 3200 mg 3,200 mg TIDAC PO Last administered on 05/21/16 16 :28; Start 05/20/16 at 12:00 Lactated Ringer's 1,000 ml @ 30 mls/hr Q24H IV ; Start 05/22/16 at 09:00; Stop 05/22/16 at 19:40; Status DC Sodium Chloride (NS 500 ml Inj) 500 ml @ 30 mls/hr [id number] IV ; Start 05/22/16 at 09:00; Stop 05/23/16 at 08:59; Status DC Insulin Human Regular (NovoLIN R INJ) See Protocol Table ... UNSCH X1 PRN SQ SEE PROTOCOL; Start 05/22/16 at 09:30; Stop 05/22/16 at 19:40; Status DC Metoprolol Tartrate (Lopressor) 25 mg UNSCH X1 PRN PO SEE LABEL COMMENTS; Start 05/22/16 at 09:30; Stop 05/22/16 at 19:40; Status DC Povidone Iodine (Betadine 5% Antisepsis Kit) 1 applic FACER OPERATOR EACH NARE ; Start 05/22/16 at 09:30; Stop 05/23/16 at 09:29; Status DC Chlorhexidine Gluconate (Chlorhexidine 2% Cloth) 3 pack FACER OPERATOR TOPICAL ; Start 05/22/16 at 09:30; Stop 05/23/16 at 09:29; Status DC Gentamicin Sulfate (Gentamicin Inj) 240 mg STK-MED ONCE IRRIGATION Last administered on 05/22/16 17:44; Start 05/22/16 at 17:44; Stop 05/22/16 at 17:45 ; Status DC Sodium Chloride (NS Flush) 2 ml UNSCH PRN IV FLUSH FLUSH AFTER USING IV ACCESS ; Start 05/22/16 at 19:15 Sodium Chloride 2 ml 2 ml BID IV FLUSH Last administered on 05/22/16 21:00; Start 05/22/16 at 21:00 Cefazolin Sodium/ Sodium Chloride (Ancef Inj/NS Inj) 100 ml @ 200 mls/hr Q6H IV ; Start 05/22/16 at 20:00; Stop 05/22/16 at 22:40; Status DC Miscellaneous Information (Post-op Orders (for Pharmacy)) STAT ONCE XX ; Start 05/22/16 at 19:15; Stop 05/22/16 at 19:44; Status DC Enoxaparin Sodium (Lovenox Inj) 30 mg Q12H SQ ; Start 05/23/16 at 08:00 Morphine Sulfate (Morphine Inj) 5 mg Q3H PRN IV PUSH Pain >7 when off IMPORT COORDINATOR; Start 05/22/16 at 19:15 Oxycodone/ Acetaminophen (Percocet 5-325 Mg) 1 tab Q4H PRN PO PAIN 3-5; Start 05/22/16 at 19:15 Oxycodone/ Acetaminophen 2 tab 2 tab Q4H PRN PO PAIN SCALE 6 TO 10 Last administered on 05/22/16t 23:00; Start 05/22/16 at 19:15 Tranexamic Acid/ Sodium Chloride (Cyklokapron Inj/ NS Inj) 108.84 ml @ 200 mls / hr UNSCH IV ; Start 05/22/16 at 19:15; Stop 05/22/16 at 19:48; Status DC Promethazine HCl (Phenergan) 25 mg Q4H PRN PO NAUSEA OR VOMITING; Start at 19:15 Multivitamins/ Minerals Therapeutic (Theragran M Tab) 1 tab BID PO ; Start 05/23 at 21:00; Stop 07/22/16 at 20:59 Docusate Sodium (Colace) 100 mg BID PO ; Start 05/23/16 at 21:00 Zolpidem Tartrate (Ambien) 5 mg HS PRN PO SLEEP; Start 05/22/16 at 19:15 Miscellaneous Information ALL NURSING DEPARTME... UNSCH PRN .XX SEE LABEL COMMENTS; Start 05/22/16 at 21:00; Stop 05/23/16 at 20:59 Cefazolin Sodium/ Sodium Chloride (Ancef Inj/NS Inj) 100 ml @ 200 mls/hr Q6H IV Last administered on 05/23/16t 05:06; Start 05/22/16 at 23:00; Stop at 11:29; Status DC A/P Problem List: (1) Femoral neck fracture ICD Code: S72.009A Status: Acute (2) Fall ICD Code: W19.XXXA Status: Acute (3) Schizophrenia ICD Code: F20.9 Status: Chronic (4) DM (diabetes mellitus) ICD Code: E11.9 Status: Chronic (5) Anemia ICD Code: D64.9 Status: Chronic (6) End stage renal failure on dialysis ICD Code: N18.6 Status: Chronic (7) Aortic valve stenosis, critical ICD Code: I35.0 Status: Acute (8) Mitral valve stenosis ICD Code: I05.0 Status: Acute (9) Mitral valve regurgitation ICD Code: I34.0 Status: Acute (10) Esophagitis, [place] grade B ICD Code: K20.8 Status: Acute (11) Gastritis ICD Code: K29.70 Status: Acute (12) Dysphagia ICD Code: R13.10 Status: Acute Assessment and Plan Left femoral neck fracture status post mechanical fall -s/p Left hip hemiarthroplasty on 05/22/16. -Continue with pain control supportive care. PT/OT. Emesis started after post surgery -Continue with supportive care. Most likely secondary to anesthesia. Critical aortic stenosis, mod-severe MV regurg - s/p DAISY, CT surgery consulted. Patient not candidate for valve replacement until after recovery from hip surgery. -D/w Dr. Moy and Dr. dewey previously. -Patient to follow-up as outpatient. Anemia of CKD - stable. Epogen per nephrology. Dysphagia - EGD 05/10 showed class B esophagitis, erythematous gastritis and inflammation in the duodenal bulb. Dysphagia has improved, tolerating mechanical soft diet with thin liquids. ESRD - cont HD per nephrology. T, Th, Sat. (followed by Dr. Felix Antony). Hyperkalemia - resolved. Schizophrenia - appears compensated at this time. Cont Geodon, fluoxetine and divalproex as per outpatient doses. DM -The pt is on an insulin sliding scale as an outpt. A1c is 5.8%. Cont SSI. PPx: Heparin SQ. Discharge Planning Patient will require a couple more days of hospitalization. Due to his multiple comorbidities he may benefit from inpatient rehabilitation. Problem Qualifiers (1) Femoral neck fracture: Qualified Code: S72.002A - Closed fracture of neck of left femur, initial encounter (2) Fall: Qualified Code: W19.XXXA - Fall, initial encounter Vivi Ewing MD May 23, 2016 12:36
[2016-05-23 13:30] VITALS: BP 83/50; PULSE 109; RESP 16; O2SAT 98
[2016-05-23] MEDS ORDERED: PROMETHAZINE HCL 25 MG SUPP RECTAL PRN (13:45)
[2016-05-23] MEDS: SODIUM CHLORIDE 0.9% FLUSH 10 ML FLUSH IV FLUSH SCH ×2 (14:45→20:51)
[2016-05-23] MEDS: PANTOPRAZOLE SOD 40 MG DELAYED RELEASE TAB PO SCH (14:45)
[2016-05-23 17:18] LABS: HEMATOCRIT 30.3 % (39.0-51.0); MEAN CELL VOLUME 87.5 FL (80.0-100.0); MEAN CORPUSCULAR HGB CONC 33.1 % (32.0-36.0); PLATELET COUNT 452 TH/MM3 (150-450); RED BLOOD COUNT 3.47 MIL/MM3 (4.50-5.90); RED CELL DISTRIBUTION WIDTH 16.2 % (11.6-17.2); REVIEW FLAG FINAL; WHITE BLOOD COUNT 16.4 TH/MM3 (4.0-11.0)
[2016-05-23 17:38] LABS: BICARBONATE 31.9 MEQ/L (21.0-32.0); POTASSIUM 4.7 MEQ/L (3.5-5.1)
--- NOTE | 2016-05-23 18:37 | PD.ORT.PN ---
Subjective Subjective Remarks In bed comfortable. feeling weak Objective Vitals Vital Signs Date Time Temp Pulse Resp B/P Pulse Ox O2 Delivery O2 Flow Rate FiO2 05/23/16 13:30 109 16 83/50 98 05/23/16 12:30 96.9 109 20 83/50 98 05/23/16 09:51 96 21 05/23/16 08:00 96.7 99 19 95/64 95 05/23/16 07:15 Room Air 05/23/16 04:35 96.0 97 20 108/67 96 05/22/16 21:58 99 Nasal Cannula 2.00 05/22/16 21:41 96.9 88 17 106/55 99 05/22/16 21:30 97.7 87 16 100/35 97 Nasal Cannula 2 05/22/16 21:15 85 16 93/59 95 Nasal Cannula 2 05/22/16 21:00 84 16 96/50 96 Nasal Cannula 2 05/22/16 20:45 82 16 93/60 96 Nasal Cannula 2 05/22/16 20:30 84 18 107/60 96 Nasal Cannula 2 05/22/16 20:15 78 18 94/55 95 Nasal Cannula 2 05/22/16 20:00 78 16 116/67 97 Nasal Cannula 2 05/22/16 19:45 84 16 115/72 98 Nasal Cannula 2 05/22/16 19:35 97.7 80 16 86/40 95 05/22/16 19:35 97.5 77 20 118/52 97 Nasal Cannula 2 I/O 05/22/16 05/22/16 05/22/16 05/23/16 05/23/16 05/23/16 07:00 15:00 23:00 07:00 15:00 23:00 Intake Total 240 ml 0 ml 1490 ml 430 ml 420 ml Output Total 200 ml 150 ml 1400 ml 200 ml 1200 ml Balance 40 ml -150 ml 90 ml 230 ml -780 ml Intake Oral 240 ml 0 ml 240 ml 120 ml 420 ml IV Total 200 ml 310 ml Packed Cells 250 ml Other 800 ml Output Urine Total 200 ml 150 ml 650 ml 200 ml Hemodialysis 1200 ml Estimated Blood Loss 600 ml Other 150 ml # Bowel Movements 0 1 0 0 Result Diagram: 05/23/16 1638 05/23/16 163 Objective Remarks LLE: grossly nvi. +CKS. 2+ PT/DP. No calf tenderness Negative Stacy sign Assessment & Plan Assessment and Plan POD # 1- LEFT hip bipolar hemiarthroplasty postop symptomatic anemia Antibiotics: Ancef, vancomycin DVT prophylaxis, Lovenox Weightbearing status: WBAT. posterior hip precautions. knee Immobilizer on at all times except when walking. Abduction pillow while in bed. Dressing change: Change daily, by RN starting postop day 2 Dispo: likely inpatient rehabilitation next week Follow-up: 2 weeks, Dr. Riley[facility] Dimitri Grajeda Jr., MD May 23, 2016 18:36
[2016-05-23] MEDS: PROCHLORPERAZINE INJ 10 MG/2 ML VIAL IM PRN (19:02)
[2016-05-23 20:00] VITALS: BP 99/56; PULSE 103; RESP 19; TEMP 98.1; O2SAT 95
[2016-05-23] MEDS: FLUoxetine HCL 20 MG CAP PO SCH (20:50)
[2016-05-23] MEDS: DOCUSATE SODIUM 100 MG CAP PO SCH (20:51)
[2016-05-23] MEDS: MULTIVITAMINS/MINERALS THERAPEUTIC TAB PO SCH (20:51)
[2016-05-23] MEDS: PANTOPRAZOLE INJ 80 MG in SODIUM CHLORIDE 0.9% INJ 100 ML IV SCH (23:53)
[2016-05-24] VITALS (8 sets, daily range): BP systolic 82–121; BP diastolic 53–65; PULSE 102–119; RESP 16–18; TEMP 96–98.4; O2SAT 92–96
[2016-05-24] MEDS ORDERED: PANTOPRAZOLE INJ 80 MG in SODIUM CHLORIDE 0.9% INJ 35 ML IV ONE (00:15)
[2016-05-24 01:03] LABS: HEMATOCRIT 29.1 % (39.0-51.0); REVIEW FLAG FINAL
[2016-05-24] MEDS: INSULIN ASPART SUPPLEMENTAL SCALE SQ SCH ×4 (05:52→21:00)
[2016-05-24 06:43] LABS: HEMATOCRIT 29.7 % (39.0-51.0); REVIEW FLAG FINAL
[2016-05-24] MEDS: SEVELAMER CARBONATE 800 MG TAB PO SCH ×3 (08:00→17:00)
[2016-05-24] MEDS: LACTULOSE SYRUP 20 GM/30 ML CUP PO SCH (09:00)
[2016-05-24] MEDS: ZIPRASIDONE HCL 80 MG CAP PO SCH ×2 (09:00→21:50)
[2016-05-24] MEDS: METOPROLOL TARTRATE 25 MG TAB PO SCH ×2 (09:00→21:00)
[2016-05-24] MEDS: ZIPRASIDONE HCL 20 MG CAP PO SCH ×2 (09:00→21:50)
[2016-05-24] MEDS: SENNOSIDES 8.6 MG TAB PO SCH (09:00)
[2016-05-24] MEDS: DOCUSATE SODIUM 100 MG CAP PO SCH ×2 (09:00→21:00)
[2016-05-24] MEDS: DIVALPROEX SODIUM E.R. 500 MG TAB PO SCH ×2 (09:00→21:00)
[2016-05-24] MEDS: MULTIVITAMINS/MINERALS THERAPEUTIC TAB PO SCH ×2 (09:00→21:00)
[2016-05-24] MEDS: PANTOPRAZOLE INJ 80 MG in SODIUM CHLORIDE 0.9% INJ 100 ML IV SCH (09:27)
[2016-05-24] MEDS: PROCHLORPERAZINE INJ 10 MG/2 ML VIAL IM PRN (09:28)
[2016-05-24] MEDS: SODIUM CHLORIDE 0.9% FLUSH 10 ML FLUSH IV FLUSH SCH ×2 (09:30→21:40)
--- NOTE | 2016-05-24 09:41 | HHI.NPPN ---
Subjective General Problems: Anemia, Hypertension Renal Failure: Chronic, End Stage Renal Disease Interval History He is sleeping. Has been vomiting since dialysis. Has large basin with significant amount of what appears to be coffee ground emesis. GI has been reconsulted. Also unable to hold down psychiatric medications per nurse, was very paranoid overnight and refusing nursing care/interventions. (Zahra Aguilar) Review of Systems General Constitutional: Fatigue (Zahra Aguilar) Gastrointestinal Gastrointestinal: Nausea & Vomiting (Zahra Aguilar) Musculoskeletal MS: Pain/Stiffness MS Remarks some numbness left leg, motor impaired secondary to pain (Zahra Aguilar) Objective Data Data 05/23/16 05/24/16 19:00 07:00 Intake Total 420 ml 1638 ml Output Total 1200 ml 1125 ml Balance -780 ml 513 ml Intake Oral 420 ml 960 ml IV Total 678 ml Output Urine Total 50 ml Emesis 1075 ml Hemodialysis 1200 ml # Bowel Movements 0 Vital Signs Date Time Temp Pulse Resp B/P Pulse Ox O2 Delivery O2 Flow Rate FiO2 05/24/16 07:50 95 21 05/24/16 07:00 Room Air 05/24/16 04:00 96.0 113 18 107/57 95 05/24/16 00:00 98.4 110 18 121/63 95 05/23/16 20:00 98.1 103 19 99/56 95 05/23/16 19:04 Room Air 05/23/16 13:30 109 16 83/50 98 05/23/16 12:30 96.9 109 20 83/50 98 05/23/16 09:51 96 21 (Zahra Aguilar) -: 05/24/16 0540 05/23/16 1638 Imaging Last 72 hours Impressions Hip and Pelvis X-Ray 05/22/16 0000 Signed Impressions: Service Date/Time: Sunday, May 22, 2016 19:55 - CONCLUSION: 1. Status post left hip replacement with prosthesis in good position. Chris Oakley MD Drip Comment protonix (Zahra Aguilar) Physical Exam General Appearance: Well Developed, Well Nourished, No Acute Distress, Comfortable, Sleeping (Zahra Aguilar) Eyes Eye Exam: Pupils Equal, Pupils Reactive (Zahra Aguilar) Throat Throat Exam: Oral Mucosa [place] & Moist (Zahra Aguilar) Pulmonary Resp Exam: Clear Bilaterally, Breath Sounds Equal, No Distress (Zahra Aguilar) Cardiology CV Exam: Normal Sinus Rhythm, Murmur CV Remarks III/ systolic murmur, mitral area, radiates to left axilla (Zahra Aguilar) Gastrointestinal/Abdomen GI Exam: Soft, Non-Tender, Bowel Sounds Present (Zahra Aguilar) Musculoskeletal MS Exam: Joints Intact, Normal Tone (Zahra Aguilar) Integumentary Skin Exam: Clear, Warm, Dry, Intact (Zahra Aguilar) Extremeties Extremities Exam: No Edema, Pedal Pulses Palpable (Zahra Aguilar) Neurologic Neuro Exam: Alert, Awake, Oriented, Speech Clear, Moving All Extremities ( Zahra Aguilar) Psychiatric Psych Exam: Appropriate Responses (Zahra Aguilar) Assessment/Plan Discussed Condition With: Patient Assessment Summary: Anemia of CKD, Hypertension, End Stage Renal Disease Problem List: (1) ESRD (end stage renal disease) Plan: We will continue HD TTS. He had 2L UF yesterday no acute renal concerns; access functions well Continue Renvela for metabolic bone disorder, follow up phosphorus periodically. Renal diet with no protein restriction avoid IVF Historically, patient has been non compliant with diet and medications, at least partially due to his bipolar illness. (2) Femoral neck fracture Plan: ortho following s/p left hip hemiarthroplasty 05/22 (3) Murmur Plan: Echocardiogram revealed critical , endocarditis was ruled out he will need eventual valve replacement CV surgery has recommended outpatient follow up (4) Hypertension Plan: continue home medications. Monitor. (5) Anemia Plan: epogen with HD may have developed GI bleeding, see below (6) Vomiting Plan: check emesis for occult blood serial H/H ordered GI reconsulted he was started on protonix KUB film ordered (Zahra Aguilar) Plan patient was seen and examined. Agree with above assessment and plan. In addition , he is tachycardic on exam. Will place him on Telemetry. Discussed with RN. He now has NG tube. May have post operative ileus. (Felix Andersen MD) Problem Qualifiers (1) Femoral neck fracture: Qualified Code: S72.002A - Closed fracture of neck of left femur, initial encounter Zahra Aguilar May 24, 2016 09:41 Felix Andersen MD May 24, 2016 13:33
--- NOTE | 2016-05-24 10:13 | RADRPT ---
EXAM DATE/TIME: 05/24/2016 10:00 [facility] COMPARISON: CHEST SINGLE AP, December 02, 2013, 11:54. CHEST SINGLE AP, February 22, 2016, 15:27. INDICATIONS : Nausea and vomiting. MEDICAL HISTORY : None. SURGICAL HISTORY : left femur fracture ENCOUNTER: Initial ACUITY: 2 days PAIN SCORE: Non-responsive. LOCATION: Bilateral abdomen FINDINGS: There is prominent gastric distention which may affect gastric ileus. The small bowel is nondilated l eft hip arthroplasty is present. There is parenchymal scarring on the left. CONCLUSION: 1. Gastric distention which may reflect ileus. Hemal Ladd MD on May 24, 2016 at 10:09 Board Certified Radiologist. This report was verified electronically.
--- NOTE | 2016-05-24 10:39 | HHI.GIFU ---
Subjective Remarks Reconsulted for dark emesis. Pt reports that he started having nausea, vomiting after his surgery. This is dark in color. He was started on Protonix Gtt, Serial HH have been ordered adn GI has been consulted for possible GI Bleeding. The patient c/o mid abdominal discomfort/pressure with nausea/ vomiting. He reports that he has some distention and that he had a normal bowel movement yesterday or the day before. (Karishma Holder) Objective Vitals I&O Vital Signs Date Time Temp Pulse Resp B/P Pulse Ox O2 Delivery O2 Flow Rate FiO2 05/24/16 07:50 95 21 05/24/16 07:00 Room Air 05/24/16 04:00 96.0 113 18 107/57 95 05/24/16 00:00 98.4 110 18 121/63 95 05/23/16 20:00 98.1 103 19 99/56 95 05/23/16 19:04 Room Air 05/23/16 13:30 109 16 83/50 98 05/23/16 12:30 96.9 109 20 83/50 98 I/O 05/23/16 05/23/16 05/23/16 05/24/16 05/24/16 05/24/16 07:00 15:00 23:00 07:00 15:00 23:00 Intake Total 430 ml 420 ml 720 ml 918 ml Output Total 200 ml 1200 ml 300 ml 825 ml Balance 230 ml -780 ml 420 ml 93 ml Intake Oral 120 ml 420 ml 720 ml 240 ml IV Total 310 ml 678 ml Output Urine Total 200 ml 0 ml 50 ml Emesis 300 ml 775 ml Hemodialysis 1200 ml # Bowel Movements 0 0 0 Laboratory Laboratory Tests Test 05/23/16 05/24/16 05/24/16 16:38 00:50 05:40 White Blood Count 16.4 Red Blood Count 3.47 Hemoglobin 10.0 9.8 9.7 Hematocrit 30.3 29.1 29.7 Mean Corpuscular Volume 87.5 Mean Corpuscular Hemoglobin 29.0 Mean Corpuscular Hemoglobin 33.1 Concent Red Cell Distribution Width 16.2 Platelet Count 452 Mean Platelet Volume 8.4 Sodium Level 137 Potassium Level 4.7 Chloride Level 95 Carbon Dioxide Level 31.9 Anion Gap 10 Blood Urea Nitrogen 51 Creatinine 5.51 Estimat Glomerular Filtration 11 Rate Random Glucose 89 Calcium Level 10.1 Phosphorus Level 6.7 Albumin 2.5 Imaging Last Impressions Abdomen X-Ray 05/24/16 0000 Signed Impressions: Service Date/Time: Tuesday, May 24, 2016 10:00 - CONCLUSION: 1. Gastric distention which may reflect ileus. Hemal Ladd MD Hip and Pelvis X-Ray 05/22/16 0000 Signed Impressions: Service Date/Time: Sunday, May 22, 2016 19:55 - CONCLUSION: 1. Status post left hip replacement with prosthesis in good position. Chris Oakley MD Chest X-Ray 05/07/16 0221 Signed Impressions: Service Date/Time: Saturday, May 07, 2016 02:46 - CONCLUSION: 1. Atelectasis versus mild consolidation in the left midlung. 2. Mild chronic cardiac silhouette enlargement. Rayo Cespedes MD Physical Exam HEENT: Normocephalic; atraumatic; no jaundice. CHEST: CTA, diminished bases CARDIAC: RRR ABDOMEN: Soft, distended,mild mid abdominal tenderness; no hepatosplenomegaly; bowel sounds are present in all four quadrants. EXTREMITIES: BLE weakness SKIN: Multiple dry scabs [employer]: No focal deficits; alert and oriented times three. (Karishma Holder [place]) Assessment and Plan Plan ASSESSMENT: - Reconsulted for N/V with dark emesis. Pt started having nausea, vomiting with dark emesis shortly after his surgery for his femoral neck fx. There is no red blood. He also has associated mid abdominal tenderness and bloating. He does report that he has moved his bowels. He was started on Protonix Gtt and serial HH's were ordered and these have remained stable. S/P recent EGD (05/10/16)-----> 1. There was LA Class B esophagitis noted; multiple biopsies were performed 2. There was erythematous gastritis in the gastric antrum 3. Duodenal inflammation was found in the duodenal bulb 4. Retroflexed views revealed no abnormalities. Pathology with moderate acute and chronic inflammatory changes consistent with reflux negative for intestinal metaplasia and dysplasia. Suspect ileus. Abdomen X-Ray (05/24/16)----> 1. Gastric distention which may reflect ileus. Will place NGT to LIWS, make NPO, start Reglan at reduced dose for decreased renal function. Okay to d/c Protonix gtt and give BID dosing. He does not appear to be having GI bleeding. - Post Op Ileus. KUB with gastric distention which may reflect ileus. Symptoms started after sx. Will make NPO, NGT to LIWS, Reglan reduced dose. Encourage oob to chair. - Dysphagia, improved. - GERD, Esophagitis, gastritis. Pathology as above. - History of Reza s/p Barrx/ablation X 2 in August and November of last year. - S/P mechanical fall resulting in left femoral neck fracture- ortho following. - CAD, Heart murmur per Cardiology - Critical aortic stenosis, mod-severe MV regurg. S/P DAISY, CVT evaluation, not a candidate for valve replacement until after recovery from hip surgery. - End-stage renal disease on HD . ur. Sat. and diabetes per attending Plan: - NPO - Insert NGT - NGT to LIWS - D/C protonix Gtt - Protonix 40mg IV BID - Reglan 5mg IV q8h - Cont. Lactulose - Encourage mobility, OOB to chair - Monitor labs - Supportive care - Repeat EGD in one year - Patient seen and examined by Dr. Hollins and myself and this note is written on his behalf. (Karishma Holder) Physician Comments Patient seen and examined Agree with above Continue with current supportive care Monitor labs Consider EGD on Friday if symptoms persist (Niraj Hollins MD) Karishma Holder May 24, 2016 10:39 Niraj Hollins MD May 24, 2016 19:17
[2016-05-24] MEDS: PANTOPRAZOLE SODIUM 40 MG VIAL IV PUSH SCH ×2 (11:00→21:40)
[2016-05-24 11:18] LABS: HEMATOCRIT 29.1 % (39.0-51.0); REVIEW FLAG FINAL
--- NOTE | 2016-05-24 11:37 | PD.ORT.PN ---
Subjective Subjective Remarks coffee-ground emesis overnight. He did not do physical therapy yesterday secondary to weakness. no chest pain or shortness of breath. Objective Vitals Vital Signs Date Time Temp Pulse Resp B/P Pulse Ox O2 Delivery O2 Flow Rate FiO2 05/24/16 11:01 96.0 117 16 111/65 96 05/24/16 07:50 95 21 05/24/16 07:00 Room Air 05/24/16 04:00 96.0 113 18 107/57 95 05/24/16 00:00 98.4 110 18 121/63 95 05/23/16 20:00 98.1 103 19 99/56 95 05/23/16 19:04 Room Air 05/23/16 13:30 109 16 83/50 98 05/23/16 12:30 96.9 109 20 83/50 98 I/O 05/23/16 05/23/16 05/23/16 05/24/16 05/24/16 05/24/16 07:00 15:00 23:00 07:00 15:00 23:00 Intake Total 430 ml 420 ml 720 ml 918 ml Output Total 200 ml 1200 ml 300 ml 825 ml Balance 230 ml -780 ml 420 ml 93 ml Intake Oral 120 ml 420 ml 720 ml 240 ml IV Total 310 ml 678 ml Output Urine Total 200 ml 0 ml 50 ml Emesis 300 ml 775 ml Hemodialysis 1200 ml # Bowel Movements 0 0 0 Result Diagram: 05/24/16 1109 05/23/16 1638 Imaging Last 24 hours Impressions Abdomen X-Ray 05/24/16 0000 Signed Impressions: Service Date/Time: Tuesday, May 24, 2016 10:00 - CONCLUSION: 1. Gastric distention which may reflect ileus. Hemal Ladd MD Objective Remarks LLE: grossly nvi. +CKS. 2+ PT/DP. No calf tenderness. Negative Stacy sign Assessment & Plan Assessment and Plan POD # 2- LEFT hip bipolar hemiarthroplasty postop symptomatic anemia. coffee-ground emesis overnight. did not do physical therapy yesterday secondary to weakness. DVT prophylaxis, Lovenox Weightbearing status: WBAT. posterior hip precautions. knee Immobilizer on at all times except when walking. Abduction pillow while in bed. Dressing change: Change daily, by RN Dispo: likely inpatient rehabilitation next week Follow-up: 2 weeks, Dr. Riley[facility] Dimitri Grajeda Jr., MD May 24, 2016 11:37
[2016-05-24] MEDS: MORPHINE SULFATE 8 MG/ML INJ IV PUSH PRN ×2 (11:56→23:29)
--- NOTE | 2016-05-24 13:58 | HHI.HCPN ---
Reason for visit a. To assist with evaluation and management of symptoms including: pain, nausea/vomiting, weakness b. To assist medical decision maker(s) with: better understanding of current medical conditions; weighing benefits/burdens of medical treatment options; making medical treatment decisions. . Subjective/Interval History Mr Herron was seen and assessed in room 1610, also present patient's sister. lasty POD #2 - LEFT hip bipolar hemiarthroplasty. Patient presents awake and alert, less engaged today. Flat affect. Answering questions with 1-2 word answers. Follows commands. Patient reporting left hip/trochanter pain which is exacerbated by movement. Also complains of abdominal distention with mid abdominal discomfort with associated nausea/vomiting. Patient has had coffee ground emesis since HD yesterday. Gastroenterology was reconsulted for possible GI bleed: = Patient started on Protonix. = Serial H/H, currently stable. = KUB showing gastric distention which may reflect ileus. = NPO = NGT to LIWS = Occult Blood pending Per nursing report the patient has been unable to hold down his psychiatric medications, paranoid overnight and refusing nursing care. Consider consulting psychiatry for recommendations. Patient remains bedbound. Did not receive PT secondary to weakness. Physical therapy and occupational therapy will continue to follow, will likely begin inpatient rehabilitation next week. . Family/friend interactions Spoke with patient's sister at bedside and privately while NGT was being placed. Updated on patient's clinical condition provided. Patient sister verbalizing concerns that patient has not able to keep down psychiatric medications, stating his symptoms have been difficult to control and he is currently well managed. . Advance Directives Living Will: Copy in medical record Health Care Surrogate: Copy in medical record Durable Power of Pharmacy Operations Manager: Copy in medical record Advance Directive Specifics Date completed: The patient has DURABLE POWER OF SKIP PIT WORKER for healthcare documents and a living will dated 01/27/2008 scanned into the electronic medical record. There is a separate designation of healthcare surrogate document dated 2016 that is in the paper chart. . Health Care Surrogate(s): The DURABLE POWER OF SKIP PIT WORKER for healthcare documents from 2007 with the primary is the patient's fatherPapa Herron (now ). The alternate is the patient's sisterSherri Sin. The health care surrogate designation document dated 03/25/2016 with the primary surrogate as the patient's brother Fernando Herron. The alternate is the patient's sister Sherri Sin. . Documented care wishes: The patient has completed a standard [place] living will. It indicates that if he is ever found to have a terminal or end-stage condition or is in a persistent vegetative state, he would not want life prolonging procedures. . Objective Vital Signs Date Time Temp Pulse Resp B/P Pulse Ox O2 Delivery O2 Flow Rate FiO2 05/24/16 11:01 96.0 117 16 111/65 96 05/24/16 07:50 95 21 05/24/16 07:00 Room Air 05/24/16 04:00 96.0 113 18 107/57 95 05/24/16 00:00 98.4 110 18 121/63 95 05/23/16 20:00 98.1 103 19 99/56 95 05/23/16 19:04 Room Air 05/23/16 13:30 109 16 83/50 98 Intake & Output 05/24/16 05/24/16 07:00 19:00 Intake Total 1638 ml Output Total 1125 ml Balance 513 ml Intake Oral 960 ml IV Total 678 ml Output Urine Total 50 ml Emesis 1075 ml # Bowel Movements 0 . Physical Exam CONSTITUTIONAL/GENERAL: This is an adequately nourished patient with flat affect , no evidence of pain when lying still TUBES/LINES/DRAINS: Dialysis fistula left upper extremity; peripheral IV; SCDs: NGT to LIWS SKIN: No jaundice. There are numerous erythematous lesions on both upper extremities. No other wounds seen anteriorly. Skin temperature appropriate. Not diaphoretic. HEAD: Atraumatic. Normocephalic. EYES: PERRLA. Extraocular motions intact. No scleral icterus. No injection or drainage. Fundi not examined. ENT: Hearing grossly normal. Nose without bleeding or purulent drainage. NECK: Trachea midline. CARDIOVASCULAR: Regular rate and rhythm without murmurs, gallops, or rubs. + murmur. No JVD. Peripheral pulses symmetric. RESPIRATORY/CHEST: Symmetric, unlabored respirations. Clear to auscultation. Breath sounds equal bilaterally. No wheezes, rales, or rhonchi. GASTROINTESTINAL: Abdomen slightly distended, tender to palpation. Normoactive bowel sounds x 4. GENITOURINARY: Without palpable bladder distension. MUSCULOSKELETAL: Extremities without clubbing, cyanosis, or edema. Arteriovenous shunt for dialysis and left upper extremity. LYMPHATICS: No palpable cervical or supraclavicular adenopathy. NEUROLOGICAL: Awake and alert. Answers simple questions, follows commands. PSYCHIATRIC: Flat affect. . Diagnostic Tests Laboratory Laboratory Tests Test 05/22/16 05/22/16 05/23/16 05/24/16 05:11 17:40 16:38 00:50 White Blood Count 10.2 TH/MM3 16.4 TH/MM3 (4.0-11.0) (4.0-11.0) Red Blood Count 3.22 MIL/MM3 3.47 MIL/MM3 (4.50-5.90) (4.50-5.90) Hemoglobin 9.5 GM/DL 10.0 GM/DL 9.8 GM/DL (13.0-17.0) (13.0-17.0) (13.0-17.0) Hematocrit 28.6 % 30.3 % 29.1 % (39.0-51.0) (39.0-51.0) (39.0-51.0) Mean Corpuscular Volume 88.7 FL 87.5 FL (80.0-100.0) (80.0-100.0) Mean Corpuscular Hemoglobin 29.4 PG 29.0 PG (27.0-34.0) (27.0-34.0) Mean Corpuscular Hemoglobin 33.2 % 33.1 % Concent (32.0-36.0) (32.0-36.0) Red Cell Distribution Width 16.5 % 16.2 % (11.6-17.2) (11.6-17.2) Platelet Count 424 TH/MM3 452 TH/MM3 (150-450) (150-450) Mean Platelet Volume 8.8 FL 8.4 FL (7.0-11.0) (7.0-11.0) Sodium Level 135 MEQ/L 137 MEQ/L (136-145) (136-145) Potassium Level 4.4 MEQ/L 4.7 MEQ/L (3.5-5.1) (3.5-5.1) Chloride Level 94 MEQ/L 95 MEQ/L (98-107) (98-107) Carbon Dioxide Level 29.8 MEQ/L 31.9 MEQ/L (21.0-32.0) (21.0-32.0) Anion Gap 11 MEQ/L (5-15) 10 MEQ/L (5-15) Blood Urea Nitrogen 76 MG/DL (7-18) 51 MG/DL (7-18) Creatinine 8.16 MG/DL 5.51 MG/DL (0.60-1.30) (0.60-1.30) Estimat Glomerular Filtration 7 ML/MIN (>89) 11 ML/MIN (>89) Rate Random Glucose 144 MG/DL 89 MG/DL (74-106) (74-106) Calcium Level 10.8 MG/DL 10.1 MG/DL (8.5-10.1) (8.5-10.1) Blood Type O NEGATIVE Antibody Screen NEGATIVE Crossmatch Leukocyte-Reduced Red Blood Cells Blood Bank Comment Phosphorus Level 6.7 MG/DL (2.5-4.9) Albumin 2.5 GM/DL (3.4-5.0) Test 05/24/16 05/24/16 05:40 11:09 Hemoglobin 9.7 GM/DL 9.6 GM/DL (13.0-17.0) (13.0-17.0) Hematocrit 29.7 % 29.1 % (39.0-51.0) (39.0-51.0) . Result Diagram: 05/24/16 1109 05/23/16 1638 Microbiology Microbiology Date/Time Procedure Status Source Growth 05/24/16 11:05 Stool Occult Blood (FRANCESCO) Received Stool Duodenal Aspirate Pending . Imaging Last 72 hours Impressions Abdomen X-Ray 05/24/16 0000 Signed Impressions: Service Date/Time: Tuesday, May 24, 2016 10:00 - CONCLUSION: 1. Gastric distention which may reflect ileus. Hemal Ladd MD Hip and Pelvis X-Ray 05/22/16 0000 Signed Impressions: Service Date/Time: Sunday, May 22, 2016 19:55 - CONCLUSION: 1. Status post left hip replacement with prosthesis in good position. Chris Oakley MD . Procedures * Hemodialysis * LEFT hip bipolar hemiarthroplasty. . Assessment and Plan Disease Oriented Problem List: (1) Femoral neck fracture Comment: Left side.. (2) ESRD (end stage renal disease) Comment: Has been receiving hemodialysis approximately 6-7 years. . (3) Dependent on hemodialysis (4) Aortic valve stenosis, critical (5) Mitral valve stenosis (6) Mitral valve regurgitation (7) Esophagitis, [place] grade B (8) Barretts esophagus Comment: Underwent EGD on 05/10/16. No cancer cells seen on biopsy. . (9) Anemia (10) DM (diabetes mellitus) (11) Hyperlipidemia (12) Schizophrenia Comment: History going back to the 1980s. History of multiple hospitalizations. Symptoms appear well-controlled at this time. . 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 Also complains of some abdominal distention, mid abdominal discomfort with associated nausea/vomiting. No other known pain syndromes. Current orders for morphine 5 mg IV push q3 hours PRN for pain >7; Percocet (5/325/tab) 1-2 tablets PO q4 hours PRN for pain. 24 hour total: Morphine 5 mg 1; Percocet 2 tablets 1. Patient does have a history of occasional chest pains. However, these most often happen at rest and do not radiate. PRN Nitrostat is available for chest pain but has not been utilized. . (2) Nausea and vomiting 0-10 Scale: Unable to quantify Comment: Patient has had coffee ground emesis since HD yesterday. Gastroenterology was reconsulted for possible GI bleed: = Patient started on Protonix. = Serial H/H, currently stable. = KUB showing gastric distention which may reflect ileus. = NPO = NGT to LIWS = Occult Blood pending = PRN Phenergan and Zofran are available (3) Weakness 0-10 Scale: Unable to quantify Comment: POD #2 s/p left hip bipolar hemiarthroplasty. Did not receive PT today, secondary weakness. Physical therapy and occupational therapy will continue to follow, will likely begin inpatient rehabilitation next week. . Pertinent Non-Medical Issues Psychosocial: Patient was born in [facility]. He moved to [place] when he was 6 years old The patient completed high school and attended [employer] on a tennis scholarship. He received a business degree. 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 He patient was never . He has no children. The patient's mother when he was quite young. The patient's father in December 2015 for myocardial infarction. The patient has a brotherTommy she lives locally and teaches tennis. He also has a sister who lives in [place]. The patient has a history of schizophrenia dating back to the 1980s. He had multiple psychiatric hospitalizations. He has been a resident at [facility] since 02/10/2009. Spiritual: The patient identifies himself as a Shinto. He does not belong to any particular local cheondoism. He would appreciate visits from the [facility] mining captain. Legal: The DURABLE POWER OF SKIP PIT WORKER for healthcare documents from 2007 with the primary is the patient's fatherPapa Herron (now ). The alternate is the patient's sisterSherri Sin. The health care surrogate designation document dated 03/25/2016 with the primary surrogate as the patient' s Amy Herron. The alternate is the patient's sister Sherri Sin. Ethical issues impacting care: No known issues impacting care at this time. . Important Contacts * Sherri Sin (sister and healthcare power of energy attorney) H: [phone] C : [phone] * Fernando Herron (brother and healthcare surrogate) [phone] . Prognosis Patient has underlying schizophrenia, ES renal disease on hemodialysis, and Reza's esophagus. He has been a nursing facility resident for over 7 years due to his mental health issues. He has fractured his hip and pre-op w/u has revealed critical aortic stenosis. In addition to the risks of surgery, his sister reports that he has a history of not being very compliant with physical therapy. We will . Code Status: Full Code Plan == Code Status: FULL CODE == Decision Making: Patient appears to have a reasonably good understanding of his medical condition. He is able to tell me about his fracture and is able to tell me that he has a heart problem that makes surgery more difficult. He admits to feeling overwhelmed and wants decision making to be shared. He is fine with either his sister or his brother helping him. They are each listed as surrogates on separate documents in his medical record. I have personally spoken with the patient's sister -- Sherri Sin -- who is happy to serve in this capacity. I have also spoken with brother -- Fernando- who also agrees to serve. The two speak frequently and our medical team can speak to either one for guidance. Per patient's preference, I would recommend "shared decision making " including patient and at least one of the people below for all major decisions * Sherri Sin (POA for health care / sister) H: [phone] C: * Fernando Herron (brother/ health care surrogate) [phone] == Symptom managementpain: Patient reporting left hip/trochanter pain which is exacerbated by movement. Also complains of some abdominal distention, mid abdominal discomfort with associated nausea/vomiting. No other known pain syndromes. Current orders for morphine 5 mg IV push q3 hours PRN for pain >7; Percocet (5/325/tab) 1-2 tablets PO q4 hours PRN for pain. 24 hour total: Morphine 5 mg 1; Percocet 2 tablets 1. Patient does have a history of occasional chest pains. However, these most often happen at rest and do not radiate. PRN Nitrostat is available for chest pain but has not been utilized. Palliative Care will monitor PRN requirements and make recommendations as indicated. = Symptom managementnausea: Patient has had coffee ground emesis since HD yesterday. Gastroenterology was reconsulted for possible GI bleed. Patient started on Protonix; Serial H/H, currently stable; KUB showing gastric distention which may reflect ileus; NPO with NGT to LIWS, Occult Blood pending; PRN Phenergan and Zofran are available. = Symptom managementweakness: POD #2 s/p left hip bipolar hemiarthroplasty. Did not receive PT today, secondary weakness. Physical therapy and occupational therapy will continue to follow, will likely begin inpatient rehabilitation next week. == Per nursing report the patient has been unable to hold down his psychiatric medications, paranoid overnight and refusing nursing care. Patient sister verbalizing concerns that patient has not been tolerating psychiatric medications, stating his symptoms have been difficult to control and he is currently well managed. Consider psychiatric consult for evaluation of psychiatric medications. == Palliative care will continue to follow to assist with symptom management and to further clarify goals of care as the clinical course evolves . Attestation To help prompt me to consider important information that might be impacting today's encounter and assessment, information from prior notes written by myself or my colleagues may have been "brought forward" into today's note. My signature on this note, however, is an attestation that I personally performed the exam, history, and/or decision-making noted today, and, unless otherwise indicated, the interactions with patient, family, and staff as well as the review of records all occurred today. I also attest that the listed assessment and stated plan reflect my best clinical judgment today based on the combination of historical information, prior notes, and today's exam/ interactions. When time spent is documented, it refers only to time spent today by the signer, or if indicated, combined time spent today by collaborating physician/nurse practitioner. . Charlee Finch May 24, 2016 13:50
--- NOTE | 2016-05-24 15:01 | HHI.PR ---
Subjective Remarks f/u for hip fracture and emesis. patient continues to have emesis where NG was placed. + epigastric pain. patient asking to drink water. Otherwise denied any SOB, CP, palpitations or lightheadedness/dizziness. Objective Vitals Vital Signs Date Time Temp Pulse Resp B/P Pulse Ox O2 Delivery O2 Flow Rate FiO2 05/24/16 11:01 96.0 117 16 111/65 96 05/24/16 07:50 95 21 05/24/16 07:00 Room Air 05/24/16 04:00 96.0 113 18 107/57 95 05/24/16 00:00 98.4 110 18 121/63 95 05/23/16 20:00 98.1 103 19 99/56 95 05/23/16 19:04 Room Air I/O 05/23/16 05/23/16 05/23/16 05/24/16 05/24/16 05/24/16 07:00 15:00 23:00 07:00 15:00 23:00 Intake Total 430 ml 420 ml 720 ml 918 ml Output Total 200 ml 1200 ml 300 ml 825 ml Balance 230 ml -780 ml 420 ml 93 ml Intake Oral 120 ml 420 ml 720 ml 240 ml IV Total 310 ml 678 ml Output Urine Total 200 ml 0 ml 50 ml Emesis 300 ml 775 ml Hemodialysis 1200 ml # Bowel Movements 0 0 0 Result Diagram: 05/24/16 1109 05/23/16 1638 Objective Remarks GENERAL: A weak-looking male in no acute distress. HEENT: NG in place. CARDIOVASCULAR: Regular rate and rhythm. 4/6 systolic heart murmur in all areas. RESPIRATORY: Breath sounds equal bilaterally. No accessory muscle use. GASTROINTESTINAL: Abdomen soft, mild epigastric pain to palpation, nondistended. Procedures DAISY EGD Medications and IVs Current Medications Ondansetron HCl (Zofran Inj) 4 mg ONCE ONCE IVP Last administered on 03:31; Start 05/07/16 at 02:30; Stop 05/07/16 at 02:31; Status DC IV Flush (NS Flush) 2 ml UNSCH PRN IVF FLUSH AFTER USING IV ACCESS Last administered on 05/21/16 20:59; Start 05/07/16 at 02:30; Stop 05/22/16 at 19:31 ; Status DC Hydromorphone HCl (Dilaudid Pf Inj) 0.5 mg ONCE ONCE IVS Last administered on 05/07/16 03:31; Start 05/07/16 at 02:30; Stop 05/07/16 at 02:31; Status DC Ondansetron HCl 4 mg 4 mg ONCE ONCE IV PUSH Last administered on 05/07/16 02: 30; Start 05/07/16 at 02:30; Stop 05/07/16 at 02:31; Status DC Sodium Chloride (NS 1000 ml Inj) 1,000 ml @ 40 mls/hr Q24H IV Last administered on 05/07/16 05:14; Start 05/07/16 at 03:33; Stop 05/07/16 at 09:08 ; Status DC Acetaminophen (Tylenol) 650 mg Q4H PRN PO TEMP > 100.4; Start 05/07/16 at 03:45 Ondansetron HCl (Zofran Inj) 4 mg Q6H PRN IVP NAUSEA OR VOMITING Last administered on 05/23/16 23:43; Start 05/07/16 at 03:45 Magnesium Hydroxide (Milk Of Magnesia Liq) 30 ml Q12H PRN PO CONSTIPATION; Start 05/07/16 at 03:45 Acetaminophen (Tylenol) 650 mg Q6H PRN PO PAIN SCALE 1 TO 2 Last administered on 05/20/16 16:29; Start 05/07/16 at 03:45 Hydromorphone HCl (Dilaudid Pf Inj) 0.2 mg Q3H PRN IV Pain 3-5; if unable to take PO; Start 05/07/16 at 03:45; Stop 05/07/16 at 11:53; Status DC Hydromorphone HCl (Dilaudid Pf Inj) 0.5 mg Q3H PRN IV Breakthrough pain Last administered on 05/15/16 05:02; Start 05/07/16 at 03:45; Stop 05/22/16 at 19:31 ; Status DC Naloxone HCl 0.4 mg 0.4 mg UNSCH PRN IV SEE LABEL COMMENTS; Start 05/07/16 at 03:45 Sodium Chloride (NS 1000 ml Inj) 1,000 ml @ 0 mls/hr Q0M PRN IV For Prime & Rinse Back; Start 05/07/16 at 09:06 Heparin Sodium (Porcine) 8000 units 8,000 units UNSCH PRN IVF WITH DIALYSIS; Start 05/07/16 at 09:15 Sodium Chloride 1,000 ml @ 200 mls/hr Q5H PRN IV WITH DIALYSIS Last administered on 05/09/16 15:25; Start 05/07/16 at 09:06 Sodium Chloride (NS 1000 ml Inj) 1,000 ml @ 0 mls/hr Q0M PRN IV WITH DIALYSIS; Start 05/07/16 at 09:06 Mannitol (Mannitol Inj) 12.5 gm UNSCH PRN IV WITH DIALYSIS; Start 05/07/16 at 09:15 Albumin Human (Albumin 25% Inj) 25 gm UNSCH PRN IV WITH DIALYSIS Last administered on 05/23/16 11:07; Start 05/07/16 at 09:15 IV Flush (NS Flush) 5 ml UNSCH PRN IVF WITH DIALYSIS; Start 05/07/16 at 09:15 Heparin Sodium (Porcine) (Heparin Inj) UNSCH PRN .XX WITH DIALYSIS; Start at 09:15 Gentamicin Sulfate (Gentamicin (Dialysis) Inj) 20 mg UNSCH PRN IV WITH DIALYSIS ; Start 05/07/16 at 09:15 Ondansetron HCl (Zofran Inj) 4 mg UNSCH PRN IV WITH DIALYSIS Last administered on 05/23/16 17:51; Start 05/07/16 at 09:15 Acetaminophen (Tylenol) 650 mg UNSCH PRN PO for headach, pain, temp > 101F; Start 05/07/16 at 09:15 Diphenhydramine HCl (Benadryl) 25 mg UNSCH PRN PO for hives/itching/anaphylaxis ; Start 05/07/16 at 09:15 Nitroglycerin (Nitrostat Sl) 0.4 mg UNSCH PRN SL CHEST PAIN; Start 05/07/16 at 09:15 Clonidine (Catapres) 0.1 mg UNSCH PRN PO for BP > 180/100 X 2 readings; Start 05/07/16 at 09:15 Epoetin Elie (Epogen Inj) 10,000 units UNSCH PRN IV WITH DIALYSIS Last administered on 05/23/16 11:09; Start 05/07/16 at 09:15 Gelatin (Gelfoam 12 Mm/7 Mm Top) 1 foam UNSCH PRN TOP SEE LABEL COMMENTS Last administered on 05/21/16 11:27; Start 05/07/16 at 09:15 Sevelamer Carbonate (Renvela) 800 mg TIDAC PO ; Start 05/07/16 at 12:00; Stop at 14:20; Status DC Oxycodone HCl (Roxicodone) 10 mg Q4H PRN PO pain 6-10 Last administered on 05/21 19:55; Start 05/07/16 at 12:00; Stop 05/22/16 at 19:26; Status DC Oxycodone HCl (Roxicodone) 5 mg Q4H PRN PO pain 1-5 Last administered on 22:13; Start 05/07/16 at 12:00; Stop 05/22/16 at 19:26; Status DC Docusate Sodium (Colace) 100 mg BID PO Last administered on 05/21/16 21:00; Start 05/07/16 at 21:00; Stop 05/22/16 at 19:28; Status DC Sennosides (Senokot) 17.2 mg DAILY PO Last administered on 05/20/16 08:58; Start 05/08/16 at 09:00 Ziprasidone (Geodon) 80 mg BID PO Last administered on 05/23/16 20:50; Start 05/07/16 at 21:00 Divalproex Sodium (Depakote Er) 500 mg BID PO Last administered on 05/23/16 20 :49; Start 05/07/16 at 13:00 Fluoxetine HCl (PROzac) 20 mg HS PO Last administered on 05/23/16 20:50; Start 05/07/16 at 21:00 Metoprolol Tartrate (Lopressor) 12.5 mg Q12HR PO Last administered on 08:37; Start 05/07/16 at 21:00 Famotidine (Pepcid) 20 mg DAILY PO ; Start 05/08/16 at 09:00; Stop 05/08/16 at 12:49; Status DC Insulin Aspart (NovoLOG SUPPLEMENTAL SCALE) 1 ACHS SLIDING SCALE SQ Last administered on 05/22/16 21:00; Start 05/07/16 at 16:00 Ziprasidone (Geodon) 20 mg BID PO Last administered on 05/23/16 20:50; Start 05/07/16 at 21:00 Prochlorperazine Edisylate (Compazine Inj) 10 mg ONCE ONCE IVS ; Start at 22:30; Stop 05/07/16 at 22:31; Status DC Pantoprazole Sodium (Protonix Inj) 40 mg ONCE ONCE IV PUSH Last administered on 05/07/16 23:41; Start 05/07/16 at 23:30; Stop 05/07/16 at 23:31; Status DC Gentamicin Sulfate (Gentamicin Inj) 240 mg STK-MED ONCE .ROUTE ; Start 05/08/16 at 12:20; Stop 05/08/16 at 12:21; Status DC Pantoprazole Sodium (Protonix Inj) 40 mg Q24H IV PUSH Last administered on 05/13 13:37; Start 05/08/16 at 13:00; Stop 05/13/16 at 15:41; Status DC Miscellaneous Information 1 UNSCH PRN XX SEE LABEL COMMENTS; Start 05/08/16 at 14:15; Stop 05/11/16 at 14:14; Status DC Sevelamer Carbonate 1600 mg 1,600 mg TIDAC PO Last administered on 05/14/16 17 :17; Start 05/08/16 at 17:00; Stop 05/15/16 at 09:37; Status DC Ceftriaxone Sodium 1000 mg/ Sodium Chloride 100 ml @ 200 mls/hr Q24H IV ; Start 05/08/16 at 16:00; Stop 05/08/16 at 16:00; Status DC Ceftriaxone Sodium/Sodium Chloride (Rocephin Inj/NS Inj) 100 ml @ 200 mls/hr Q24H IV Last administered on 05/13/16 16:47; Start 05/08/16 at 16:00; Stop at 16:03; Status DC Bisacodyl (Dulcolax Supp) 10 mg ONCE ONCE RECTAL ; Start 05/09/16 at 10:15; Stop 05/09/16 at 10:20; Status DC Sodium Biphosphate/ Sodium Phosphate 133 ml 133 ml ONCE ONCE CA ; Start at 10:15; Stop 05/09/16 at 10:20; Status DC Lactated Ringer's 1,000 ml @ 30 mls/hr Q24H IV ; Start 05/10/16 at 00:30; Stop 05/20/16 at 11:32; Status DC Sodium Chloride (NS 500 ml Inj) 500 ml @ 30 mls/hr [id number] IV ; Start 05/10/16 at 00:30; Stop 05/11/16 at 00:29; Status DC Insulin Human Regular (NovoLIN R INJ) See Protocol Table ... UNSCH X1 PRN SQ SEE PROTOCOL; Start 05/10/16 at 00:30; Stop 05/11/16 at 00:29; Status DC Metoprolol Tartrate (Lopressor) 25 mg UNSCH X1 PRN PO SEE LABEL COMMENTS; Start 05/10/16 at 00:30; Stop 05/11/16 at 00:29; Status DC Lactulose (Lactulose Liq) 30 ml DAILY PO Last administered on 05/16/16 08:07; Start 05/10/16 at 09:00 Propofol (Diprivan 200 Mg/20 ml Inj) 60 mg STK-MED ONCE IV ; Start 05/10/16 at 09:43; Stop 05/10/16 at 09:59; Status DC Heparin Sodium (Porcine) (Heparin Inj) 5,000 units Q8HR SQ Last administered on 05/21/16 20:59; Start 05/10/16 at 14:00; Stop 05/22/16 at 22:44; Status DC Sodium Polystyrene Sulfonate (Kayexalate Liq) 15 gm ONCE ONCE PO Last administered on 05/13/16 16:47; Start 05/13/16 at 15:45; Stop 05/13/16 at 15:46 ; Status DC Pantoprazole Sodium (Protonix) 40 mg DAILY PO Last administered on 05/23/16 14 :45; Start 05/14/16 at 09:00; Stop 05/23/16 at 23:21; Status DC Sevelamer Carbonate (Renvela) 2,400 mg TIDAC PO Last administered on 05/20/16 08:57; Start 05/15/16 at 12:00; Stop 05/20/16 at 11:33; Status DC Sevelamer Carbonate 3200 mg 3,200 mg TIDAC PO Last administered on 05/21/16 16 :28; Start 05/20/16 at 12:00 Lactated Ringer's 1,000 ml @ 30 mls/hr Q24H IV ; Start 05/22/16 at 09:00; Stop 05/22/16 at 19:40; Status DC Sodium Chloride (NS 500 ml Inj) 500 ml @ 30 mls/hr [id number] IV ; Start 05/22/16 at 09:00; Stop 05/23/16 at 08:59; Status DC Insulin Human Regular (NovoLIN R INJ) See Protocol Table ... UNSCH X1 PRN SQ SEE PROTOCOL; Start 05/22/16 at 09:30; Stop 05/22/16 at 19:40; Status DC Metoprolol Tartrate (Lopressor) 25 mg UNSCH X1 PRN PO SEE LABEL COMMENTS; Start 05/22/16 at 09:30; Stop 05/22/16 at 19:40; Status DC Povidone Iodine (Betadine 5% Antisepsis Kit) 1 applic PIPELINE SYSTEMS OPERATOR EACH NARE ; Start 05/22/16 at 09:30; Stop 05/23/16 at 09:29; Status DC Chlorhexidine Gluconate (Chlorhexidine 2% Cloth) 3 pack PIPELINE SYSTEMS OPERATOR TOPICAL ; Start 05/22/16 at 09:30; Stop 05/23/16 at 09:29; Status DC Gentamicin Sulfate (Gentamicin Inj) 240 mg STK-MED ONCE IRRIGATION Last administered on 05/22/16 17:44; Start 05/22/16 at 17:44; Stop 05/22/16 at 17:45 ; Status DC Sodium Chloride (NS Flush) 2 ml UNSCH PRN IV FLUSH FLUSH AFTER USING IV ACCESS ; Start 05/22/16 at 19:15 Sodium Chloride 2 ml 2 ml BID IV FLUSH Last administered on 05/24/16 09:30; Start 05/22/16 at 21:00 Cefazolin Sodium/ Sodium Chloride (Ancef Inj/NS Inj) 100 ml @ 200 mls/hr Q6H IV ; Start 05/22/16 at 20:00; Stop 05/22/16 at 22:40; Status DC Miscellaneous Information (Post-op Orders (for Pharmacy)) STAT ONCE XX ; Start 05/22/16 at 19:15; Stop 05/22/16 at 19:44; Status DC Enoxaparin Sodium (Lovenox Inj) 30 mg Q12H SQ Last administered on 05/23/16 20 :50; Start 05/23/16 at 08:00; Status Hold Morphine Sulfate (Morphine Inj) 5 mg Q3H PRN IV PUSH Pain >7 when off MANAGER SALT Last administered on 05/24/16 11:56; Start 05/22/16 at 19:15 Oxycodone/ Acetaminophen (Percocet 5-325 Mg) 1 tab Q4H PRN PO PAIN 3-5; Start 05/22/16 at 19:15 Oxycodone/ Acetaminophen 2 tab 2 tab Q4H PRN PO PAIN SCALE 6 TO 10 Last administered on 05/22/16 23:00; Start 05/22/16 at 19:15 Tranexamic Acid/ Sodium Chloride (Cyklokapron Inj/ NS Inj) 108.84 ml @ 200 mls / hr UNSCH IV ; Start 05/22/16 at 19:15; Stop 05/22/16 at 19:48; Status DC Promethazine HCl (Phenergan) 25 mg Q4H PRN PO NAUSEA OR VOMITING; Start at 19:15 Multivitamins/ Minerals Therapeutic (Theragran M Tab) 1 tab BID PO Last administered on 05/23/16 20:51; Start 05/23/16 at 21:00; Stop 07/22/16 at 20:59 Docusate Sodium (Colace) 100 mg BID PO Last administered on 05/23/16 20:51; Start 05/23/16 at 21:00 Zolpidem Tartrate (Ambien) 5 mg HS PRN PO SLEEP; Start 05/22/16 at 19:15 Miscellaneous Information ALL NURSING DEPARTME... UNSCH PRN .XX SEE LABEL COMMENTS; Start 05/22/16 at 21:00; Stop 05/23/16 at 20:59; Status DC Cefazolin Sodium/ Sodium Chloride (Ancef Inj/NS Inj) 100 ml @ 200 mls/hr Q6H IV Last administered on 05/23/16 14:48; Start 05/22/16 at 23:00; Stop at 11:29; Status DC Promethazine HCl 25 mg 25 mg Q4H PRN RECTAL NAUSEA/VOMITING ; Start 05/23/16 at 13:45 Cefazolin Sodium/ Sodium Chloride (Ancef Inj/NS Inj) 100 ml @ 200 mls/hr Q6H IV Last administered on 05/23/16 14:51; Start 05/23/16 at 14:00; Stop at 14:29; Status DC Prochlorperazine Edisylate 5 mg 5 mg Q6H PRN IM NAUSEA/VOMITING Last administered on 05/24/16 09:28; Start 05/23/16 at 18:45 Pantoprazole Sodium 80 mg/ Sodium Chloride 35 ml @ 420 mls/hr ONCE ONCE IV Last administered on 05/23/16 23:53; Start 05/24/16 at 00:15; Stop 05/24/16 at 00:19; Status DC Pantoprazole Sodium/Sodium Chloride (Protonix Inj/NS Inj) 100 ml @ 10 mls/hr Q10H IV Last administered on 05/24/16 09:27; Start 05/24/16 at 00:15; Stop at 10:25; Status DC Metoclopramide HCl (Reglan Inj) 5 mg Q8HR IV PUSH ; Start 05/24/16 at 14:00 Pantoprazole Sodium (Protonix Inj) 40 mg Q12H IV PUSH Last administered on 05/24 11:00; Start 05/24/16 at 11:00 A/P Problem List: (1) Femoral neck fracture ICD Code: S72.009A Status: Acute (2) Fall ICD Code: W19.XXXA Status: Acute (3) Schizophrenia ICD Code: F20.9 Status: Chronic (4) DM (diabetes mellitus) ICD Code: E11.9 Status: Chronic (5) Anemia ICD Code: D64.9 Status: Chronic (6) End stage renal failure on dialysis ICD Code: N18.6 Status: Chronic (7) Aortic valve stenosis, critical ICD Code: I35.0 Status: Acute (8) Mitral valve stenosis ICD Code: I05.0 Status: Acute (9) Mitral valve regurgitation ICD Code: I34.0 Status: Acute (10) Esophagitis, Lagrange grade B ICD Code: K20.8 Status: Acute (11) Gastritis ICD Code: K29.70 Status: Acute (12) Dysphagia ICD Code: R13.10 Status: Acute Assessment and Plan Left femoral neck fracture status post mechanical fall -s/p Left hip hemiarthroplasty on 05/22/16. -Continue with pain control supportive care. -PT/OT. Ileus -KUB suggest ileus. Most likely secondary to anesthesia. -GI ff -NPO, NGT to LIWS, on protonix 40mg IV BID, reglan 5mg IV q8h - Repeat EGD in one year -Continue with supportive care. Critical aortic stenosis, mod-severe MV regurg - s/p DAISY, CT surgery consulted. Patient not candidate for valve replacement until after recovery from hip surgery. -D/w Dr. Moy and Dr. dewey previously. -Patient to follow-up as outpatient. Anemia of CKD - stable. Epogen per nephrology. Dysphagia - EGD 05/10 showed class B esophagitis, erythematous gastritis and inflammation in the duodenal bulb. Dysphagia has improved, tolerating mechanical soft diet with thin liquids. ESRD - cont HD per nephrology. T, Th, Sat. (followed by Dr. Felix Antony). Hyperkalemia - resolved. Schizophrenia - on Geodon, fluoxetine and divalproex as per outpatient doses. -consulted Psych since nurse felt patient is becoming paranoid. DM -The pt is on an insulin sliding scale as an outpt. A1c is 5.8%. Cont SSI. PPx: Heparin SQ. Discharge Planning Once patient is medically stable can be d/c to inpatient rehab. Problem Qualifiers (1) Femoral neck fracture: Qualified Code: S72.002A - Closed fracture of neck of left femur, initial encounter (2) Fall: Qualified Code: W19.XXXA - Fall, initial encounter Vivi Ewing MD May 24, 2016 15:01
[2016-05-24] MEDS: METOCLOPRAMIDE HCL 10 MG/2 ML VIAL IV PUSH SCH ×2 (16:33→21:40)
[2016-05-24 17:24] LABS: REVIEW FLAG FINAL
--- NOTE | 2016-05-24 17:24 | MB ---
cc: LLUVIA CAMERON DATE OF CONSULTATION 05/24/16 PHYSICIAN REQUESTING CONSULTATION: Dr. Ewing REASON FOR CONSULTATION Past history of schizophrenia status post left hip fracture with ileus. Unable to take psych meds. HISTORY OF PRESENT ILLNESS Mr. Herron is a 55-year-old male with a history of schizophrenia, presently admitted following left femoral neck fracture. He underwent an arthroplasty on May 22. He has developed postoperative ileus. Psychiatry is consulted because the patient is unable to tolerate his oral psychotropics and is possibly developing some paranoia. The patient seen and examined. Chart reviewed. Case discussed with nursing staff. Per nursing staff, the patient is n.p.o. except for medications but has been unable to tolerate most of his pills including his psychotropics as he retches when he takes them. He has been no behavioral problem. The patient's sister is at the bedside at the time of my evaluation and the patient is agreeable to having her remain. On my examination today, the patient appears to be a little watchful but denies any joana paranoia. I can elicit no other delusional material. Mood is perhaps a little bit down but no other depressive or hypomanic/manic symptoms are evident. He denies any suicidal or homicidal ideation. He denies any audiovisual hallucinations. His sister, relates that the patient has seemed a little distant and internally preoccupied lately and is worried that he might be growing somewhat psychotic. She notes that when he has been floridly psychotic in the past he has had delusions that his family members were replaced with imposters. The remainder of psychiatric ROS is negative. PAST PSYCHIATRIC HISTORY The patient has a history of schizophrenia. He is presently treated by a Dr. Beck. He is presently maintained on Depakote ER 500 milligrams twice daily, Prozac 20 milligrams daily, Geodon 100 milligrams twice daily as well as some Ambien as needed for sleep, but he has not been able to tolerate these lately. The patient himself denies a history of psychiatric admissions, although, his sister notes that he had several admissions around the time of his initial diagnosis several decades ago. He denies a history of suicide attempts. FAMILY HISTORY The patient denies any family history of mental illness. CHEMICAL DEPENDENCY HISTORY The patient denies any history of abuse of drugs or alcohol. SOCIAL HISTORY The patient is a resident at [facility]. He previously attended [employer] and [employer] 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 He is single with no children. Denies any or legal history. No reported access to guns or firearms. PAST MEDICAL HISTORY Includes a history of CKD on ESRD, diabetes and a recent left femoral neck fracture. REVIEW OF SYSTEMS Includes nausea. No reported headache, vision or hearing changes, chest pain, shortness of breath, bladder issues. No other physical complaints. PHYSICAL EXAMINATION Physical examination was completed by the primary team. VITAL SIGNS: Temperature is 96.5, pulse is 115 per minute, respirations 16, blood pressure 100/65 and pulse oximetry is 95% on room air. GENERAL: On my examination today, the patient appears to be somewhat ill-appearing but otherwise in no acute physical distress. No motoric abnormalities noted. No hand tremor. No dystonias. No dyskinesias noted. LABORATORIES REVIEWED CBC is significant for mild leukocytosis at 16.4, hemoglobin of 9.6, platelets of 452. CMP GFR is 11. Hepatic function is fairly intact. Alkaline phosphatase is 175. CARDIOLOGY STUDIES EKG reviewed. This is sinus tachycardia with first-degree AV block with a QTC of 432 milliseconds. MENTAL STATUS EXAMINATION The patient is in hospital gown. He is somewhat disheveled but appears to be maintaining basic hygiene. He is awake and alert and oriented to person, place and year. He is able to spell the word world forwards and backwards with only one error. No other evidence of delirium. No motoric abnormalities noted. Speech is within normal limits for rate, tone and volume. Language and fund of knowledge seem average to slightly reduced. Mood is perhaps slightly down and affect is blunted. Thought process linear. No loosening of associations. No joana delusional material although the patient is a little watchful. Denies any audiovisual hallucinations. He does not appear internally preoccupied. Denies suicidal or homicidal ideation. Insight and judgment are fair. ASSESSMENT/PLAN 1. Schizophrenia, paranoid type, F20.0. This is a 55-year-old male with psychiatric history as detailed above who is presently admitted following repair of the femoral neck fracture. He has developed a postoperative ileus and is unable to tolerate his oral psychotropics. Psychiatry has therefore been consulted to recommend alternative psychotropic agents. The patient reports a history of good tolerability to haloperidol. Since this medication is available IV, I would recommend initiating a low dose of Haldol to start such as 2 milligrams IV t.i.d., and this can be titrated as needed to effect and as tolerated. I would not much exceed 10 milligrams per day in this acutely ill patient. I would at the first opportunity resume the patient's scheduled psychotropics and discontinue the haloperidol. The Geodon is not available in any other form and must be administered with food to be fully bio-available, but the Prozac and Depakote are available in liquid formulation. If Depakote is being administered as a liquid, an equipotent dose would likely be slightly less since the dosage recommendation is to increase the dose from short acting formulations to long-acting formulations of Depakote, and I can assist if a switch to a Depakene liquid is necessary. The patient is not presently suicidal or homicidal, nor is there any evidence of severely decompensated mental illness and so I do not believe the patient requires psychiatric hospitalization at this time. He can of course be placed with a sitter if needed for behavioral redirection if there is evidence of deterioration in his behaviors. Otherwise, I have no specific recommendations at this time. I will be available through the weekend to provide assistance if you need. You can give me a page at [phone]. If you require further assistance after the weekend, I would ask that you please consult Dr. Ferrer for further management. Thank you very much for this consultation. Case discussed with RN. Lluvia Cameron DC/MATHEW /4:35 PM /4:59 PM DEVANTE
[2016-05-24] MEDS: HALOPERIDOL LACTATE 5 MG/ML AMP IM SCH (17:41)
[2016-05-24] MEDS: FLUoxetine HCL 20 MG CAP PO SCH (21:50)
--- NOTE | 2016-05-24 22:52 | RADRPT ---
EXAM DATE/TIME: 05/24/2016 22:30 [facility] COMPARISON: CHEST SINGLE AP, May 07, 2016, 2:46. INDICATIONS : Evaluate chest for NG tube placement. MEDICAL HISTORY : None. SURGICAL HISTORY : left femur fracture. ENCOUNTER: Subsequent ACUITY: 3 days PAIN SCORE: 0/10 LOCATION: Bilateral chest FINDINGS: The nasogastric tube is kinked in the midesophagus with its tip directed superiorly above the level o f the tommy. Removal and subsequent replacement into the stomach is suggested. A right subclavian ce ntral line has its tip in super vena cava. There is no pneumothorax. The heart is enlarged. Left basi lar streakiness is noted consistent with atelectasis. CONCLUSION: 1. Nasogastric tube is kinked in the midesophagus with its tip directed superiorly above the level of the tommy. Removal and subsequent replacement into the stomach is suggested. 2. Cardiomegaly. 3. Left basilar streakiness consistent with probable atelectasis. Chris Oakley MD on May 24, 2016 at 22:49 Board Certified Radiologist. This report was verified electronically.
[2016-05-24] MEDS: ONDANSETRON HCL 4 MG/2 ML VIAL IVP PRN (23:29)
[2016-05-25] VITALS (8 sets, daily range): BP systolic 91–110; BP diastolic 50–61; PULSE 97–115; RESP 16–19; TEMP 96.3–97.8; O2SAT 92–95
[2016-05-25] MEDS: HALOPERIDOL LACTATE 5 MG/ML AMP IM SCH ×3 (01:00→17:00)
--- NOTE | 2016-05-25 01:12 | RADRPT ---
EXAM DATE/TIME: 05/25/2016 00:55 [facility] COMPARISON: CHEST SINGLE AP, May 24, 2016, 22:30. INDICATIONS : NG tube placement. MEDICAL HISTORY : None. SURGICAL HISTORY : None. ENCOUNTER: Subsequent ACUITY: 1 day PAIN SCORE: Non-responsive. LOCATION: Bilateral chest FINDINGS: 2 frontal views of the chest demonstrate nasogastric tube crossing the GE junction with tip in the ga stric body. Given technique the surrounding structures are not well evaluated but no acute finding or interval change is appreciated. CONCLUSION: Nasogastric tube distal tip is within the stomach. Gil Meade MD on May 25, 2016 at 1:09 Board Certified Radiologist. This report was verified electronically.
[2016-05-25] MEDS: METOCLOPRAMIDE HCL 10 MG/2 ML VIAL IV PUSH SCH ×3 (05:39→21:05)
[2016-05-25 06:07] LABS: HEMATOCRIT 27.1 % (39.0-51.0); MEAN CELL VOLUME 88.2 FL (80.0-100.0); MEAN CORPUSCULAR HEMOGLOBIN 29.5 PG (27.0-34.0); MEAN CORPUSCULAR HGB CONC 33.4 % (32.0-36.0); PLATELET COUNT 414 TH/MM3 (150-450); RED BLOOD COUNT 3.07 MIL/MM3 (4.50-5.90); RED CELL DISTRIBUTION WIDTH 16.6 % (11.6-17.2); REVIEW FLAG FINAL; WHITE BLOOD COUNT 15.1 TH/MM3 (4.0-11.0)
[2016-05-25] MEDS: INSULIN ASPART SUPPLEMENTAL SCALE SQ SCH ×4 (06:07→21:03)
[2016-05-25 06:30] LABS: BICARBONATE 29.2 MEQ/L (21.0-32.0); POTASSIUM 4.8 MEQ/L (3.5-5.1)
--- NOTE | 2016-05-25 06:46 | RADRPT ---
EXAM DATE/TIME: 05/25/2016 05:28 [facility] COMPARISON: ABDOMEN KUB ONLY, May 24, 2016, 10:00. INDICATIONS : Distention. MEDICAL HISTORY : None. SURGICAL HISTORY : None. ENCOUNTER: Subsequent ACUITY: 2 weeks PAIN SCORE: Non-responsive. LOCATION: abdomen, all quadrants. FINDINGS: 2 supine frontal views of the abdomen demonstrate air within small and large bowel in a nonobstructiv e pattern. Nasogastric tube overlies the stomach. No organomegaly is appreciated. Left hip bipolar ar throplasty hardware is present. There are overlying skin missael. CONCLUSION: There is a normal bowel gas pattern. Gil Meade MD on May 25, 2016 at 6:43 Board Certified Radiologist. This report was verified electronically.
[2016-05-25] MEDS: SEVELAMER CARBONATE 800 MG TAB PO SCH ×3 (08:00→18:28)
[2016-05-25] MEDS: METOPROLOL TARTRATE 25 MG TAB PO SCH ×2 (08:37→21:05)
[2016-05-25] MEDS: SENNOSIDES 8.6 MG TAB PO SCH (08:37)
[2016-05-25] MEDS: DOCUSATE SODIUM 100 MG CAP PO SCH ×2 (08:37→21:02)
[2016-05-25] MEDS: SODIUM CHLORIDE 0.9% FLUSH 10 ML FLUSH IV FLUSH SCH ×2 (08:37→21:05)
[2016-05-25] MEDS: LACTULOSE SYRUP 20 GM/30 ML CUP PO SCH (08:38)
[2016-05-25] MEDS: MULTIVITAMINS/MINERALS THERAPEUTIC TAB PO SCH ×2 (08:38→21:02)
--- NOTE | 2016-05-25 09:13 | HHI.PR ---
Subjective Remarks Patient seen and examined this morning after dialysis. The patient feels well. He strongly desires to eat. Is asking for a pulled pork sandwich. He has had no vomiting since yesterday morning. His blood sugar per nurse was low this morning at 74, she had a given his morning meds with orange juice. There' ve been some issues with hypoglycemia since he's been nothing by mouth. There is no drainage from the NG tube and it has been clamped since this morning when he went to dialysis. There are no other issues this morning and the patient is without any complaints. Objective Vital Signs Date Time Temp Pulse Resp B/P Pulse Ox O2 Delivery O2 Flow Rate FiO2 05/25/16 04:00 96.7 102 16 100/55 92 05/25/16 00:50 96.8 105 18 98/51 93 05/24/16 20:00 96.3 102 16 113/60 95 05/24/16 18:51 Room Air 05/24/16 18:10 97.0 119 16 82/53 92 05/24/16 17:56 109 05/24/16 15:00 96.5 115 16 100/65 95 05/24/16 11:01 96.0 117 16 111/65 96 I/O 05/24/16 05/24/16 05/24/16 05/25/16 05/25/16 05/25/16 07:00 15:00 23:00 07:00 15:00 23:00 Intake Total 918 ml Output Total 825 ml 300 ml 0 ml 800 ml Balance 93 ml -300 ml 0 ml -800 ml Intake Oral 240 ml IV Total 678 ml Output Urine Total 50 ml Gastric Drainage Total 0 ml 800 ml Emesis 775 ml 300 ml # Voids 0 0 0 # Bowel Movements 0 0 0 0 Result Diagram: 05/25/16 0530 05/25/16 0530 Imaging Last Impressions Abdomen X-Ray 05/25/16 0600 Signed Impressions: Service Date/Time: Wednesday, May 25, 2016 05:28 - CONCLUSION: There is a normal bowel gas pattern. Gil Meade MD Chest X-Ray 05/24/16 0000 Signed Impressions: Service Date/Time: Wednesday, May 25, 2016 00:55 - CONCLUSION: Nasogastric tube distal tip is within the stomach. Gil Meade MD Hip and Pelvis X-Ray 05/22/16 0000 Signed Impressions: Service Date/Time: Sunday, May 22, 2016 19:55 - CONCLUSION: 1. Status post left hip replacement with prosthesis in good position. Chris Oakley MD Other Results GENERAL: Sitting in bed, appears comfortable SKIN: Warm and dry. HEAD: Normocephalic. EYES: No scleral icterus. No injection or drainage. NECK: Supple, trachea midline. No JVD or lymphadenopathy. CARDIOVASCULAR: Regular rate and rhythm significant systolic murmur appreciate on auscultation, 05/30. RESPIRATORY: Breath sounds equal bilaterally. No accessory muscle use. GASTROINTESTINAL: Abdomen soft, non-tender, nondistended. NG tube in place. MUSCULOSKELETAL: No cyanosis, or edema. No lower extremity tenderness BACK: Nontender without obvious deformity. A/P Problem List: (1) Hypertension ICD Code: I10 (2) Schizophrenia ICD Code: F20.9 (3) Hyperlipidemia ICD Code: E78.5 (4) DM (diabetes mellitus) ICD Code: E11.9 (5) Femoral neck fracture ICD Code: S72.009A (6) End stage renal disease ICD Code: N18.6 (7) Barretts esophagus ICD Code: K22.70 (8) Dependent on hemodialysis ICD Code: Z99.2 (9) Aortic valve stenosis, critical ICD Code: I35.0 Assessment and Plan This is a 55-year-old male with a left femoral fracture sure who underwent left hip and knee arthroscopy on 05/22/2016 subsequently developed an ileus. Once the patient is medically stable he will be transferred to inpatient rehabilitation. Palliative care has also met with patient to help define goals of care. 1. Left femoral neck fracture status post mechanical fall -s/p Left hip hemiarthroplasty on 05/22/16. -Continue with pain control supportive care. -PT/OT. 2. Ileus -KUB suggest ileus. Most likely secondary to anesthesia. -GI ff, has been clamped. -NPO, NGT to LIWS, on protonix 40mg IV BID, reglan 5mg IV q8h - Repeat EGD in one year - Diet advanced to clear liquids -Continue with supportive care. 3. Critical aortic stenosis, mod-severe MV regurg - s/p DAISY, CT surgery consulted. Patient not candidate for valve replacement until after recovery from hip surgery. -D/w Dr. Moy and Dr. dewey previously. -Patient to follow-up as outpatient. 4. Anemia of CKD - stable. Epogen per nephrology. 5. Dysphagia - EGD 05/10 showed class B esophagitis, erythematous gastritis and inflammation in the duodenal bulb. Dysphagia has improved, tolerating mechanical soft diet with thin liquids. 6. ESRD - cont HD per nephrology. T, Th, Sat. (followed by Dr. Felix Antony). 7. Hyperkalemia - resolved. 8. Schizophrenia - on Geodon, fluoxetine and divalproex as per outpatient doses. -Psychiatry was consulted for patient's paranoia, no recommendations were made. Patient may have sitter as needed. 9. DM -The pt is on an insulin sliding scale as an outpt. A1c is 5.8%. Cont SSI. Currently expansion episodes of hypoglycemia due to nothing by mouth status. PPx: Heparin SQ. Fluids: Hep-Lock IV Nutrition: May have clear liquids Discharge Planning DC inpatient rehabilitation pending improvement in his medical status. Problem Qualifiers (1) Femoral neck fracture: Qualified Code: S72.002A - Closed fracture of neck of left femur, initial encounter Krystyna Corey MD R3 May 25, 2016 09:13
--- NOTE | 2016-05-25 10:24 | HHI.NPPN ---
Subjective General Problems: Anemia, Hypertension Renal Failure: Chronic, End Stage Renal Disease Additional Remarks Patient seen during HD, abd. pain is better, still with NGT. Review of Systems General Constitutional: Fatigue Gastrointestinal Gastrointestinal: Nausea & Vomiting Musculoskeletal MS: Pain/Stiffness MS Remarks some numbness left leg, motor impaired secondary to pain Objective Data Data 05/24/16 05/25/16 19:00 07:00 Output Total 300 ml 800 ml Balance -300 ml -800 ml Gastric Drainage Total 800 ml Emesis 300 ml # Voids 0 0 # Bowel Movements 0 0 Vital Signs Date Time Temp Pulse Resp B/P Pulse Ox O2 Delivery O2 Flow Rate FiO2 05/25/16 07:53 96.3 97 18 91/50 94 05/25/16 04:00 96.7 102 16 100/55 92 05/25/16 00:50 96.8 105 18 98/51 93 05/24/16 20:00 96.3 102 16 113/60 95 05/24/16 18:51 Room Air 05/24/16 18:10 97.0 119 16 82/53 92 05/24/16 17:56 109 05/24/16 15:00 96.5 115 16 100/65 95 05/24/16 11:01 96.0 117 16 111/65 96 -: 05/25/16 0530 05/25/16 0530 Microbiology 05/24/16 Stool Occult Blood (FRANCESCO) - Final, Complete HEMOCCULT POSITIVE Drip Comment protonix Physical Exam General Appearance: Well Nourished, No Acute Distress, Comfortable Eyes Eye Exam: Pupils Equal, Pupils Reactive Throat Throat Exam: Oral Mucosa [place] & Moist Pulmonary Resp Exam: Clear Bilaterally, Breath Sounds Equal, No Distress Cardiology CV Exam: Normal Sinus Rhythm, Murmur Gastrointestinal/Abdomen GI Exam: Soft, Non-Tender, Bowel Sounds Present Musculoskeletal MS Exam: Joints Intact, Normal Tone Integumentary Skin Exam: Clear, Warm, Dry, Intact Extremeties Extremities Exam: Trace Edema Neurologic Neuro Exam: Alert, Awake, Oriented Psychiatric Psych Exam: Appropriate Responses Assessment/Plan Discussed Condition With: Patient Assessment Summary: Anemia of CKD, Hypertension, End Stage Renal Disease Problem List: (1) ESRD (end stage renal disease) Plan: We will continue HD TTS. no acute renal concerns; access functions well Continue Renvela for metabolic bone disorder, follow up phosphorus periodically. Renal diet with no protein restriction avoid IVF Historically, patient has been non compliant with diet and medications, at least partially due to his bipolar illness. HD now and remove fluid as tolerated. BP has been on lower side. Still NPO. (2) Femoral neck fracture Plan: ortho following s/p left hip hemiarthroplasty 05/22 (3) Murmur Plan: Echocardiogram revealed critical , endocarditis was ruled out he will need eventual valve replacement CV surgery has recommended outpatient follow up (4) Hypertension Plan: continue home medications. Monitor. (5) Anemia Plan: epogen with HD may have developed GI bleeding, see below (6) Vomiting Plan: check emesis for occult blood serial H/H ordered GI reconsulted he was started on protonix KUB film ordered Problem Qualifiers (1) Femoral neck fracture: Qualified Code: S72.002A - Closed fracture of neck of left femur, initial encounter Homa Mazariegos MD May 25, 2016 10:24
[2016-05-25] MEDS: EPOETIN ALFA 10,000 UNITS/ML VIAL IV PRN (10:38)
[2016-05-25] MEDS: PANTOPRAZOLE SODIUM 40 MG VIAL IV PUSH SCH ×2 (11:00→22:41)
[2016-05-25] MEDS: ZIPRASIDONE HCL 20 MG CAP PO SCH ×2 (12:25→21:02)
[2016-05-25] MEDS: ZIPRASIDONE HCL 80 MG CAP PO SCH ×2 (12:25→21:02)
[2016-05-25] MEDS: DIVALPROEX SODIUM E.R. 500 MG TAB PO SCH ×2 (12:25→21:03)
--- NOTE | 2016-05-25 16:24 | HHI.GIFU ---
Subjective Remarks Resting in bed. NGT has been clamped this afternoon and he is tolerating liquids. No n/v. No abdominal pain. No bm today, but abdomen soft, nontender. (Karishma Holder) Objective Vitals I&O Vital Signs Date Time Temp Pulse Resp B/P Pulse Ox O2 Delivery O2 Flow Rate FiO2 05/25/16 12:44 97.8 104 19 96/54 94 05/25/16 10:42 95 21 05/25/16 07:53 96.3 97 18 91/50 94 05/25/16 04:00 96.7 102 16 100/55 92 05/25/16 00:50 96.8 105 18 98/51 93 05/24/16 20:00 96.3 102 16 113/60 95 05/24/16 18:51 Room Air 05/24/16 18:10 97.0 119 16 82/53 92 05/24/16 17:56 109 I/O 05/24/16 05/24/16 05/24/16 05/25/16 05/25/16 05/25/16 07:00 15:00 23:00 07:00 15:00 23:00 Intake Total 918 ml Output Total 825 ml 300 ml 0 ml 800 ml 1000 ml Balance 93 ml -300 ml 0 ml -800 ml -1000 ml Intake Oral 240 ml IV Total 678 ml Output Urine Total 50 ml Gastric Drainage Total 0 ml 800 ml Emesis 775 ml 300 ml Hemodialysis 1000 ml # Voids 0 0 0 # Bowel Movements 0 0 0 0 Laboratory Laboratory Tests Test 05/24/16 05/25/16 17:02 05:30 Hemoglobin 9.2 9.0 Hematocrit 29.0 27.1 White Blood Count 15.1 Red Blood Count 3.07 Mean Corpuscular Volume 88.2 Mean Corpuscular Hemoglobin 29.5 Mean Corpuscular Hemoglobin 33.4 Concent Red Cell Distribution Width 16.6 Platelet Count 414 Mean Platelet Volume 8.5 Sodium Level 136 Potassium Level 4.8 Chloride Level 94 Carbon Dioxide Level 29.2 Anion Gap 13 Blood Urea Nitrogen 89 Creatinine 8.15 Estimat Glomerular Filtration 7 Rate Random Glucose 92 Calcium Level 10.6 Date/Time Procedure Status Source Growth 05/24/16 11:05 Stool Occult Blood (FRANCESCO) - Final Complete Stool Duodenal Aspirate HEMOCCULT POSITIVE Imaging Last Impressions Abdomen X-Ray 05/25/16 0600 Signed Impressions: Service Date/Time: Wednesday, May 25, 2016 05:28 - CONCLUSION: There is a normal bowel gas pattern. Gil Meade MD Chest X-Ray 05/24/16 0000 Signed Impressions: Service Date/Time: Wednesday, May 25, 2016 00:55 - CONCLUSION: Nasogastric tube distal tip is within the stomach. Gil Meade MD Hip and Pelvis X-Ray 05/22/16 0000 Signed Impressions: Service Date/Time: Sunday, May 22, 2016 19:55 - CONCLUSION: 1. Status post left hip replacement with prosthesis in good position. Chris Oakley MD Physical Exam HEENT: Normocephalic; atraumatic; no jaundice. CHEST: CTA, diminished bases CARDIAC: RRR ABDOMEN: Soft, nondistended, nontender; no hepatosplenomegaly; bowel sounds are present in all four quadrants. EXTREMITIES: BLE weakness SKIN: Multiple dry scabs [employer]: No focal deficits; alert and oriented times three. (Karishma Holder [facility]) Assessment and Plan Plan ASSESSMENT: - Post op Ileus. S/P recent EGD (05/10/16)-----> 1. There was LA Class B esophagitis noted; multiple biopsies were performed 2. There was erythematous gastritis in the gastric antrum 3. Duodenal inflammation was found in the duodenal bulb 4. Retroflexed views revealed no abnormalities. Pathology with moderate acute and chronic inflammatory changes consistent with reflux negative for intestinal metaplasia and dysplasia. Developed n/v after surgery. KUB yesterday, had gastric distention consistent with ileus. He was made NPO with NGT to LIWS and started at reduced dose reglan. Today KUB unremarkable. Clinically, much improved. His NGT has been clamped this afternoon and he is tolerating clear liquids. D/C'd NGT and advanced diet to Full liquids for tonight and will start regular renal diet in am. Will cont. PPI, Reglan, and start Miralax. He did not have bowel movement, but abdomen is soft and nondistended. D/W patient importance of bowel regimen and increased mobility. - Dysphagia, resolved. - GERD, Esophagitis, gastritis. - History of Reza s/p Barrx/ablation X 2 in August and November of last year. - S/P mechanical fall resulting in left femoral neck fracture- ortho following. - CAD, Heart murmur per Cardiology - Critical aortic stenosis, mod-severe MV regurg. S/P DAISY, CVT evaluation, not a candidate for valve replacement until after recovery from hip surgery. - End-stage renal disease on HD . . Sat. and diabetes per attending Plan: - Full liquids - Start renal diet in am - NGT d/c'd - Add Miralax 17 gram po daily - Protonix 40mg IV BID - Reglan 5mg IV q8h - Cont. Lactulose - Encourage mobility, OOB to chair - Repeat EGD in one year - Patient seen and examined by Dr. Rodriguez and myself and this note is written on his behalf. (Karishma Holder) Physician Comments seen and examined with DAVY, doing well. NG dced. Tolerating po diet. (Love Rodriguez MD) Karishma Holder May 25, 2016 16:24 Love Rodriguez MD May 26, 2016 13:53
[2016-05-25] MEDS: POLYETHYLENE GLYCOL 17 GM PKG PO SCH (18:28)
[2016-05-25] MEDS: FLUoxetine HCL 20 MG CAP PO SCH (21:03)
[2016-05-26] VITALS (24 sets, daily range): BP systolic 84–112; BP diastolic 53–66; PULSE 76–160; RESP 16–28; TEMP 96.7–98.3; O2SAT 93–100
[2016-05-26] MEDS: HALOPERIDOL LACTATE 5 MG/ML AMP IM SCH ×3 (01:00→18:04)
[2016-05-26] MEDS ORDERED: SODIUM CHLOR 0.9% 250 ML INJ 250 ML IV ONE ×2 (05:00→05:45)
[2016-05-26 05:43] LABS: AUTOMATED NEUTROPHIL # 9.4 TH/MM3 (1.8-7.7); BASOPHIL % 0.3 % (0.0-2.0); EOSINOPHIL # 0.1 TH/MM3 (0-0.4); EOSINOPHIL % 1.1 % (0.0-4.0); HEMATOCRIT 26.8 % (39.0-51.0); HEMO FLAGS DIFF FINAL; LYMPH % 9.8 % (9.0-44.0); LYMPHOCYTE # 1.2 TH/MM3 (1.0-4.8); MEAN CELL VOLUME 89.4 FL (80.0-100.0); MEAN CORPUSCULAR HEMOGLOBIN 28.6 PG (27.0-34.0); MEAN CORPUSCULAR HGB CONC 31.9 % (32.0-36.0); MONO % 12.5 % (0.0-8.0); NEUT % 76.3 % (16.0-70.0); PLATELET COUNT 384 TH/MM3 (150-450); RED CELL DISTRIBUTION WIDTH 16.3 % (11.6-17.2); WHITE BLOOD COUNT 12.4 TH/MM3 (4.0-11.0)
[2016-05-26] MEDS: METOCLOPRAMIDE HCL 10 MG/2 ML VIAL IV PUSH SCH ×3 (05:49→22:00)
[2016-05-26 06:29] LABS: BICARBONATE 30.5 MEQ/L (21.0-32.0)
[2016-05-26] MEDS: INSULIN ASPART SUPPLEMENTAL SCALE SQ SCH ×4 (06:46→21:00)
--- NOTE | 2016-05-26 08:13 | RADRPT ---
EXAM DATE/TIME: 05/26/2016 06:23 [facility] COMPARISON: CHEST SINGLE AP, May 25, 2016, 0:55. INDICATIONS : Shortness of breath. MEDICAL HISTORY : Hypercholesterolemia. Gastroesophageal reflux disease. Renal disease, end sta ge. Hepatitis C. SURGICAL HISTORY : None. ENCOUNTER: Subsequent ACUITY: 2 weeks PAIN SCORE: Non-responsive. LOCATION: Bilateral chest FINDINGS: Central line is in good position. Heart is minimally enlarged. Mild interstitial edema is present. There is no pneumothorax. CONCLUSION: 1. Central line in good position. 2. Mild interstitial edema. Angel Rhoades MD FACR on May 26, 2016 at 6:50 Board Certified Radiologist. This report was verified electronically.
[2016-05-26] MEDS ORDERED: DILTIAZEM INJ 125 MG in SODIUM CHLORIDE 0.9% INJ 100 ML IV SCH (08:15)
[2016-05-26] MEDS ORDERED: TERBUTALINE INJ 1 MG/ML AMP SQ PRN (08:15)
[2016-05-26] MEDS ORDERED: ADENOSINE IV SOLN 3 MG/ML 2 ML VIAL IV PUSH ONE (08:15)
--- NOTE | 2016-05-26 08:19 | HHI.PR ---
Subjective Remarks Paged my nurse that patient had been in SVT since 4am. Was transferred to ICU after several bolus of NS. Remained in SVT with HR in the 150s, BP 80s/50s, patient with CP. Trop 0.7, EKG showed narrow complex tachycardia. I came to see patient, who on my list at 7am was still on a medical floor. The patient has a HR in the 150s bp 80s/50s and complaining of chest discomfort, thirst, and pain on his bottom. Dr. Nunes was on the floor and I discussed the case with the patient. Objective Vital Signs Date Time Temp Pulse Resp B/P Pulse Ox O2 Delivery O2 Flow Rate FiO2 05/26/16 06:15 153 99/54 99 05/26/16 06:00 159 101/60 94 05/26/16 06:00 159 94 05/26/16 05:45 146 87/57 94 05/26/16 05:30 150 91/58 96 05/26/16 05:30 150 05/26/16 05:24 150 05/26/16 05:15 148 05/26/16 05:15 148 97 05/26/16 05:00 146 05/26/16 05:00 146 97/59 95 05/26/16 04:50 150 05/26/16 04:45 155 101/66 95 05/26/16 04:45 155 05/26/16 04:40 160 05/26/16 04:35 155 05/26/16 04:00 97.3 109 16 98/59 94 05/26/16 00:00 96.7 110 20 104/61 95 05/25/16 20:10 108 05/25/16 20:10 95 Room Air 05/25/16 20:00 97.4 115 18 100/61 95 05/25/16 15:51 96.7 106 18 110/57 95 05/25/16 12:44 97.8 104 19 96/54 94 05/25/16 10:42 95 21 I/O 05/25/16 05/25/16 05/25/16 05/26/16 05/26/16 05/26/16 07:00 15:00 23:00 07:00 15:00 23:00 Intake Total 480 ml 240 ml 240 ml Output Total 800 ml 1000 ml 150 ml 100 ml Balance -800 ml -520 ml 90 ml 140 ml Intake Oral 480 ml 240 ml 240 ml Output Urine Total 150 ml 100 ml Gastric Drainage Total 800 ml Hemodialysis 1000 ml # Voids 0 # Bowel Movements 0 0 0 Result Diagram: 05/26/16 0510 05/26/16 0510 Imaging Last Impressions Abdomen X-Ray 05/25/16 0600 Signed Impressions: Service Date/Time: Wednesday, May 25, 2016 05:28 - CONCLUSION: There is a normal bowel gas pattern. Gil Meade MD Chest X-Ray 05/24/16 0000 Signed Impressions: Service Date/Time: Wednesday, May 25, 2016 00:55 - CONCLUSION: Nasogastric tube distal tip is within the stomach. Gil Meade MD Hip and Pelvis X-Ray 05/22/16 0000 Signed Impressions: Service Date/Time: Sunday, May 22, 2016 19:55 - CONCLUSION: 1. Status post left hip replacement with prosthesis in good position. Chris Oakley MD Objective Remarks GENERAL: Sitting in bed, appears comfortable SKIN: Warm and dry. HEAD: Normocephalic. EYES: No scleral icterus. No injection or drainage. NECK: Supple, trachea midline. No JVD or lymphadenopathy. CARDIOVASCULAR: tachycardic, and irregular, +systolic murmur RESPIRATORY: Breath sounds equal bilaterally. No accessory muscle use. GASTROINTESTINAL: Abdomen soft, non-tender, nondistended. MUSCULOSKELETAL: No cyanosis, or edema. No lower extremity tenderness BACK: Nontender without obvious deformity. A/P Problem List: (1) Hypertension ICD Code: I10 (2) Schizophrenia ICD Code: F20.9 (3) Hyperlipidemia ICD Code: E78.5 (4) DM (diabetes mellitus) ICD Code: E11.9 (5) Femoral neck fracture ICD Code: S72.009A (6) End stage renal disease ICD Code: N18.6 (7) Barretts esophagus ICD Code: K22.70 (8) Dependent on hemodialysis ICD Code: Z99.2 (9) Aortic valve stenosis, critical ICD Code: I35.0 Assessment and Plan This is a 55-year-old male with a left femoral fracture sure who underwent left hip and knee arthroscopy on 05/22/2016 subsequently developed an ileus. Once the patient is medically stable he will be transferred to inpatient rehabilitation. Palliative care has also met with patient to help define goals of care. SVT/a-flutter - case discussed with Dr. Nunes, his note to follow. The following orders placed: IVF, adenosine 6 mg IV, rate slowed initially and a flutter appreciated , rate then resumed SVT, which check mg and TSH. Cardiology (previously evaluated by Dr. Dewey) reconsulted. Further orders per vocational coordinator, official consult placed. 1. Left femoral neck fracture status post mechanical fall -s/p Left hip hemiarthroplasty on 05/22/16. -Continue with pain control supportive care. -PT/OT. 2. Ileus - Resolved, NG tube removed. -on protonix 40mg IV BID, reglan 5mg IV q8h - Repeat EGD in one year - Diet advanced to clear liquids -Continue with supportive care. 3. Critical aortic stenosis, mod-severe MV regurg - s/p DAISY, CT surgery consulted. Patient not candidate for valve replacement until after recovery from hip surgery. -D/w Dr. Moy and Dr. dewey previously. -Patient to follow-up as outpatient. 4. Anemia of CKD - stable. Epogen per nephrology. 5. Dysphagia - EGD 05/10 showed class B esophagitis, erythematous gastritis and inflammation in the duodenal bulb. Dysphagia has improved, tolerating mechanical soft diet with thin liquids. 6. ESRD - cont HD per nephrology. T, Th, Sat. (followed by Dr. Felix Antony). 7. Hyperkalemia - resolved. 8. Schizophrenia - on Geodon, fluoxetine and divalproex as per outpatient doses. -Psychiatry was consulted for patient's paranoia, no recommendations were made. Patient may have sitter as needed. 9. DM -The pt is on an insulin sliding scale as an outpt. A1c is 5.8%. Cont SSI. Currently expansion episodes of hypoglycemia due to nothing by mouth status. PPx: Heparin SQ. Fluids: Hep-Lock IV Nutrition: May have clear liquids Discharge Planning DC inpatient rehabilitation pending improvement in his medical status. Problem Qualifiers (1) Femoral neck fracture: Qualified Code: S72.002A - Closed fracture of neck of left femur, initial encounter Krystyna Corey MD R3 May 26, 2016 08:19
--- NOTE | 2016-05-26 08:41 | PD.CONS ---
[facility] Service Critical Care Medicine Consult Requested By Dr. Meek Reason for Consult A flutter as critical care management Primary Care Physician Felix Antony MD History of Present Illness 55 y/o male/[facility].. Date of admission 05/07/2016. Date of consultation 05/26/2016. PMHx significant includes coronary disease, bipolar disorder, schizophrenia, seizure disorder, ESRD on HD on , , Fri, hypertension, baseline anemia of chronic kidney disease, gastroesophageal reflux disease, metabolic bone disorder, secondary hyperparathyroidism, diabetes mellitus, Reza's esophagus, hepatitis C. 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 He recently had angioplasty for Left AV fistula was in Mar. He was originally admitted after he tripped on his extra long socks and reportedly fell on his left side. He said he had a severe pain located around his left hip which radiated down his left leg. Patient had a left femoral head fracture Initially the patient was evaluated by orthopedics. Request a cardiology clearance. Patient has a baseline right bundle branch block. Cardiology workup included a stress test back in January 2016 which revealed mild hypokinesis changes in the anterior lateral wall as moderate risk. Recommended outpatient follow-up with cardiology. Echocardiogram 05/07 revealed EF of 65-70% . No regional wall motion abnormality. Severe critical aortic stenosis, left atrial dilatation. BLAYNE 55 mmHg. Mitral valve with mobile annulus. Rule out vegetation. Follow-up DAISY revealed mitral severe crest calcification with a flail posterior leaflet. Cardiothoracic surgery/Dr. Moy did see the patient recommended outpatient follow-up. Each was eventually cleared for surgery which was performed 05/22 with a left hip hemiarthroplasty. Overnight 05/26: Patient was noted to be in a narrow complex tachycardia. Received 1 L normal saline bolus on the floor. Was transferred as a [place] to room 1309. Monitor again revealed narrow complex tachycardia. Patient received adenosine 6 mg revealed an atrial flutter which converted back to narrow complex tachycardia. Patient received 1 L normal saline bolus here with resolution of hypotension and started on a Cardizem drip with Maximo-Synephrine as necessary maintain proper perfusion. A central line is currently placed in the right subclavian.. She is currently denying chest pain, palpitations, shortness of breath. The patient previously had an ileus which is since resolved. Review of Systems Constitutional: COMPLAINS OF: Fatigue, DENIES: Fever, Weight gain, Weight loss Endocrine: DENIES: Polydipsia, Polyuria Eyes: DENIES: Blurred vision Ears, nose, mouth, throat: DENIES: Tinnitus Respiratory: DENIES: Apneas, Sputum production, Shortness of breath Cardiovascular: DENIES: Chest pain, Dyspnea on Exertion, Claudication Gastrointestinal: COMPLAINS OF: Abdominal pain, Constipation, DENIES: Diarrhea , Nausea, Vomiting Genitourinary: DENIES: Urgency Musculoskeletal: COMPLAINS OF: Joint pain, DENIES: Muscle aches, Neck pain Integumentary: DENIES: Abnormal pigmentation Hematologic/lymphatic: DENIES: Bruising Immunologic/allergic: DENIES: Eczema Neurologic: DENIES: Abnormal gait, Headache Psychiatric: COMPLAINS OF: Depression, DENIES: Anxiety, Confusion Past Family Social History Allergies: Coded Allergies: Vee (Verified Adverse Reaction, Unknown, PT DENIES ALLERGY, 05/07/16) Pt denies allergy Past Medical History Schizophrenia Bipolar disorder History of seizures? First-degree AV block Right bundle-branch block Left anterior fascicular block End-stage renal disease on hemodialysis Friday//Friday Anemia of chronic kidney disease Gastroesophageal reflux disease Reza's esophagus Metabolic bone disease Diabetes mellitus Secondary hyperparathyroidism Hepatitis C Past Surgical History Left hip hemiarthroplasty secondary to left displaced femoral neck fracture - Dr. Burr T&A Removal squamous cell carcinoma from's forehead Left AV fistula Barrx ablation Reported Medications Acetaminophen as needed Depakote 500 mg by mouth twice a day Prozac 20 mg by mouth at night Geodon 80 mg by mouth twice a day Metoprolol 12.5 mg by mouth twice a day Zantac 75 mg by mouth daily Aspirin 81 mg by mouth daily Renvela 800 mg by mouth 3 times a day Sliding-scale insulin Percocet/ibuprofen as needed Active Ordered Medications Reviewed in EMR Family History Other father is not acute. No diagnosis of sudden , cardiac disease, kidney disease Social History No tobacco, alcohol or IV drug use Physical Exam Vital Signs Vital Signs Date Time Temp Pulse Resp B/P Pulse Ox O2 Delivery O2 Flow Rate FiO2 05/26/16 06:15 153 99/54 99 05/26/16 06:00 159 101/60 94 05/26/16 06:00 159 94 05/26/16 05:45 146 87/57 94 05/26/16 05:30 150 91/58 96 05/26/16 05:30 150 05/26/16 05:24 150 05/26/16 05:15 148 05/26/16 05:15 148 97 05/26/16 05:00 146 05/26/16 05:00 146 97/59 95 05/26/16 04:50 150 05/26/16 04:45 155 101/66 95 05/26/16 04:45 155 05/26/16 04:40 160 05/26/16 04:35 155 05/26/16 04:00 97.3 109 16 98/59 94 05/26/16 00:00 96.7 110 20 104/61 95 05/25/16 20:10 108 05/25/16 20:10 95 Room Air 05/25/16 20:00 97.4 115 18 100/61 95 05/25/16 15:51 96.7 106 18 110/57 95 05/25/16 12:44 97.8 104 19 96/54 94 05/25/16 10:42 95 21 Physical Exam GENERAL: 55-year-old male, resting in bed in no acute distress on nasal cannula SKIN: Warm and dry. Surgical site left hip clean dry and intact HEAD: Atraumatic. Normocephalic. EYES: Pupils equal and round around 3 mm bilaterally and reactive. No scleral icterus. No injection or drainage. ENT: No nasal bleeding or discharge. Mucous membranes pink and moist. NECK: Trachea midline. No JVD. CARDIOVASCULAR: Tachycardia, IR. S1, S2. No S4. 2 psych 6 murmur right upper sternal border/apex RESPIRATORY: Essentially Clear to auscultation. Breath sounds equal bilaterally. GASTROINTESTINAL: Abdomen soft, non-tender, slightly protuberant. Hypoactive bowel sounds are appreciated.. MUSCULOSKELETAL: Extremities with 1+ nonpitting. Left AV fistula with positive palpable thrill NEUROLOGICAL: Awake and alert. No obvious cranial nerve deficits. Motor grossly within normal limits. Five out of 5 muscle strength in the arms and legs. Normal speech. Laboratory Laboratory Tests Test 05/26/16 05:10 White Blood Count 12.4 Red Blood Count 3.00 Hemoglobin 8.6 Hematocrit 26.8 Mean Corpuscular Volume 89.4 Mean Corpuscular Hemoglobin 28.6 Mean Corpuscular Hemoglobin 31.9 Concent Red Cell Distribution Width 16.3 Platelet Count 384 Mean Platelet Volume 8.2 Neutrophils (%) (Auto) 76.3 Lymphocytes (%) (Auto) 9.8 Monocytes (%) (Auto) 12.5 Eosinophils (%) (Auto) 1.1 Basophils (%) (Auto) 0.3 Neutrophils # (Auto) 9.4 Lymphocytes # (Auto) 1.2 Monocytes # (Auto) 1.5 Eosinophils # (Auto) 0.1 Basophils # (Auto) 0.0 CBC Comment DIFF FINAL Differential Comment Sodium Level 135 Potassium Level 4.0 Chloride Level 92 Carbon Dioxide Level 30.5 Anion Gap 13 Blood Urea Nitrogen 58 Creatinine 5.39 Estimat Glomerular Filtration 11 Rate Random Glucose 159 Calcium Level 10.0 Troponin I 0.07 Date/Time Procedure Status Source Growth 05/24/16 11:05 Stool Occult Blood (FRANCESCO) - Final Complete Stool Duodenal Aspirate HEMOCCULT POSITIVE Result Diagram: 05/26/16 0510 05/26/16 0510 Imaging Last Impressions Abdomen X-Ray 05/25/16 0600 Signed Impressions: Service Date/Time: Wednesday, May 25, 2016 05:28 - CONCLUSION: There is a normal bowel gas pattern. Gil Meade MD Chest X-Ray 05/24/16 0000 Signed Impressions: Service Date/Time: Wednesday, May 25, 2016 00:55 - CONCLUSION: Nasogastric tube distal tip is within the stomach. Gil Meade MD Hip and Pelvis X-Ray 05/22/16 0000 Signed Impressions: Service Date/Time: Sunday, May 22, 2016 19:55 - CONCLUSION: 1. Status post left hip replacement with prosthesis in good position. Chris Oakley MD Assessment and Plan Assessment and Plan Neuro/Psych: Bipolar disorder Schizophrenia History of seizures Currently in Depakote 500 mg twice a day/Prozac 20 mg Geodon 100 milligrams twice a day (80 milligrams twice a day home dosage) Evaluated by psychiatry Dr. Cameron. Not suicidal. Recommended Haldol 2 milligrams every 8 hours maximum 10 mg daily Tylenol for fever Percocet/morphine for pain management CV: SVT - appears A flutter Severe aortic stenosis First-degree AV block Right bundle-branch block At anterior fascicular block Mitral valve with severe calcification/flail posterior leaflet Hypertension Stress test 02/08 revealed moderate hypokinesis in the anterior lateral wall. Moderate risk. 2-D echocardiogram 05/07 revealed EF 65-70%. No regional wall motion abnormality. Critical aortic stenosis. Moderate MS with mobile mass. Left atrium dilated. BLAYNE 55 mmHg. 05/08 revealed EF D5 to 60%. No regional wall motion abnormality. Critical aortic stenosis. Severe calcification mitral valve. [address] Moy/CT surgery. Recommended cardiac catheterization/undergo orthopedic surgery and follow-up as outpatient Today, patient was on SVT on floor. In the intensive care unit, he was given 6 mg IV of adenosine and appeared to be a flutter on telemetry. Start Maximo-Synephrine drip to maintain adequate MAP patient with aortic stenosis Started beta sal and digoxin. Will avoid calcium channel blockers for rate control to avoid afterload reduction. Initial troponin 0.07. Potassium and magnesium within normal limits. TSH 0.7. Primary team has reconsulted cardiology. On metoprolol 12.5 mg by mouth twice a day Resp: Nasal cannula to maintain saturations greater than equal to 92% Incentive Spirometry while awake Follow-up chest x-ray GI: Gastroesophageal reflux disease LA class B esophagitis Gastritis Duodenitis History of Reza's esophagus Dysphasia Hepatitis C EGD 05/10 for dysphagia revealed. There was LA Class B esophagitis noted; erythematous gastritis in the gastric antrum and Duodenal inflammation was found in the duodenal bulb Biopsies revealed chronic inflammation dysplasia Patient is on Zantac 75 mg by mouth daily at home for gastritis. On Protonix 40 mg IV daily for gastroesophageal reflux disease. Colace twice a day/Senokot/MiraLAX/lactulose daily for bowel regimen Currently on soft renal diet : Lara if indicated for accurate I's and O's in a critically ill patient Endo: Diabetes mellitus Plan sliding-scale insulin with Accu-Cheks to maintain euglycemia. On sliding scale insulin at shelter Renal: End-stage renal disease on hemodialysis Friday//Friday Secondary hyperparathyroidism Left AV fistula positive thrill. Next hemodialysis planned for Friday. Heme: Anemia of chronic kidney disease receive epogen with hemodialysis Hemoglobin stable. CBC in a.m. ID: Monitor for infection Initially seen by Dr. Hahn for possible mitral valve agitation. Since signed off. FEN: Hyponatremia Monitor BMP and replace electrolytes as clinically indicated MSK: Postop day #4 for left hip hemiarthroplasty secondary to left femoral neck fracture Seen by orthopedics/Dr. Burr. PT/OT Access - Utilize peripheral IV. Central line if indicated Prophylaxis - GI -Protonix - DVT - SCD/Lovenox Critical Care: The total critical care time was 85 minutes. Time to perform other separately billable procedures was not included in the critical care time. Code Status Full code Discussed Condition With Patient. Care plan discussed and all questions answered. Joselo Grissom MD May 26, 2016 08:41
[2016-05-26] MEDS: LACTULOSE SYRUP 20 GM/30 ML CUP PO SCH ×2 (09:00→09:54)
[2016-05-26] MEDS: METOPROLOL TARTRATE 25 MG TAB PO SCH ×2 (09:00→22:00)
[2016-05-26] MEDS ORDERED: DILTIAZEM HCL 25 MG/5 ML VIAL ONE (09:34)
[2016-05-26] MEDS ORDERED: METOPROLOL TARTRATE 5 MG/5 ML VIAL ONE (09:39)
[2016-05-26] MEDS: METOPROLOL TARTRATE 5 MG/5 ML VIAL IV PUSH SCH ×3 (09:40→22:00)
[2016-05-26] MEDS ORDERED: PHENYLEPHRINE INJ 160 MG in DEXTROSE 5% IN WATE 500 ML INJ 484 ML IV SCH ×2 (10:00)
[2016-05-26] MEDS ORDERED: DIGOXIN 0.5 MG/2 ML VIAL IV PUSH ONE ×2 (10:00→16:00)
[2016-05-26] MEDS: DIVALPROEX SODIUM E.R. 500 MG TAB PO SCH ×2 (10:03→22:01)
[2016-05-26] MEDS: DOCUSATE SODIUM 100 MG CAP PO SCH ×2 (10:04→22:00)
[2016-05-26] MEDS: SEVELAMER CARBONATE 800 MG TAB PO SCH ×3 (10:04→17:55)
[2016-05-26] MEDS: ZIPRASIDONE HCL 80 MG CAP PO SCH ×2 (10:05→22:01)
[2016-05-26] MEDS: SENNOSIDES 8.6 MG TAB PO SCH (10:05)
[2016-05-26] MEDS: SODIUM CHLORIDE 0.9% FLUSH 10 ML FLUSH IV FLUSH SCH ×2 (10:06→22:01)
[2016-05-26] MEDS: MULTIVITAMINS/MINERALS THERAPEUTIC TAB PO SCH ×2 (10:13→22:00)
[2016-05-26] MEDS: ZIPRASIDONE HCL 20 MG CAP PO SCH ×2 (10:14→22:01)
[2016-05-26] MEDS: ONDANSETRON HCL 4 MG/2 ML VIAL IV PRN (10:21)
--- NOTE | 2016-05-26 10:55 | RADRPT ---
EXAM DATE/TIME: 05/26/2016 09:52 [facility] COMPARISON: No previous studies available for comparison. INDICATIONS : Bilateral leg edema. MEDICAL HISTORY : Hypercholesterolemia. Hypertension. Hepatitis C. Hyperparathyroidism. GERD. Chest and abdominal pain. ESRD. Diabetes. Anemia. Squamous skin cancer. Schizophrenia. Bipolar. Depression. SURGICAL HISTORY : Tonsillectomy. Adenoidectomy. AV shunt. Dialysis. Skin cancer removal from forehead. ENCOUNTER: Initial ACUITY: 1 day PAIN SCORE: 7/10 LOCATION: Bilateral leg. TECHNIQUE: Venous ultrasound of the left and right leg was performed from the inguinal ligament to the proximal calf. Real-time, color Doppler and spectral tracing, compression and augmentation techniques were us ed. FINDINGS: RIGHT LEG: There is normal compressibility of the deep venous system from the inguinal region to the proximal ca lf. No echogenic clot is seen in the lumen of the common femoral, femoral, popliteal, and posterior tibial veins. There is a normal response of the venous system to proximal and distal augmentation an d respiration. LEFT LEG: There is normal compressibility of the deep venous system from the inguinal region to the proximal ca lf. No echogenic clot is seen in the lumen of the common femoral, femoral, popliteal, and posterior tibial veins. There is a normal response of the venous system to proximal and distal augmentation an d respiration. CONCLUSION: Negative for deep venous thrombosis. Angel Rhoades MD FACR on May 26, 2016 at 10:53 Board Certified Radiologist. This report was verified electronically.
--- NOTE | 2016-05-26 11:53 | RADRPT ---
EXAM DATE/TIME: 05/26/2016 10:57 [facility] COMPARISON: No previous studies available for comparison. INDICATIONS : Left leg and hip pain and swelling. DOSE: 8.7 mCi Tc99m MAA IV 0.9 mCi Tc99m DTPA aerosol MEDICAL HISTORY : Diabetes mellitus type 2. Hypertension. Renal disease, end stage. SURGICAL HISTORY : None. ENCOUNTER: Initial ACUITY: 2 days PAIN SCALE: 5/10 LOCATION: Left hip and leg. TECHNIQUE: Following five minutes of tidal breathing of DTPA aerosol, planar images of the lungs were performed in eight projections. The patient was then injected with MAA, and eight-view perfusion scan was perf ormed. FINDINGS: The aerosol ventilation is markedly inhomogeneous in both lungs. Perfusion is better than ventilation. I don't see significant ventilation/perfusion mismatch. CONCLUSION: Low probability for pulmonary embolism. Angel Rhoades MD FACR on May 26, 2016 at 11:48 Board Certified Radiologist. This report was verified electronically.
--- NOTE | 2016-05-26 12:38 | HHI.NPPN ---
Subjective General Problems: Anemia, Hypertension Renal Failure: Chronic, End Stage Renal Disease Additional Remarks Patient is alert, no SOB, no chest pain, with nasal cannula. Review of Systems General Constitutional: Fatigue Gastrointestinal Gastrointestinal: Nausea & Vomiting Musculoskeletal MS: Pain/Stiffness MS Remarks some numbness left leg, motor impaired secondary to pain Objective Data Data 05/25/16 05/26/16 19:00 07:00 Intake Total 480 ml 480 ml Output Total 1000 ml 250 ml Balance -520 ml 230 ml Intake Oral 480 ml 480 ml Output Urine Total 250 ml Hemodialysis 1000 ml # Bowel Movements 0 Vital Signs Date Time Temp Pulse Resp B/P Pulse Ox O2 Delivery O2 Flow Rate FiO2 05/26/16 06:15 153 99/54 99 05/26/16 06:00 159 101/60 94 05/26/16 06:00 159 94 05/26/16 05:45 146 87/57 94 05/26/16 05:30 150 91/58 96 05/26/16 05:30 150 05/26/16 05:24 150 05/26/16 05:15 148 05/26/16 05:15 148 97 05/26/16 05:00 146 05/26/16 05:00 146 97/59 95 05/26/16 04:50 150 05/26/16 04:45 155 101/66 95 05/26/16 04:45 155 05/26/16 04:40 160 05/26/16 04:35 155 05/26/16 04:00 97.3 109 16 98/59 94 05/26/16 00:00 96.7 110 20 104/61 95 05/25/16 20:10 108 05/25/16 20:10 95 Room Air 05/25/16 20:00 97.4 115 18 100/61 95 05/25/16 15:51 96.7 106 18 110/57 95 05/25/16 12:44 97.8 104 19 96/54 94 -: 05/26/16 0510 05/26/16 0510 Drip Comment protonix Physical Exam General Appearance: Well Nourished, No Acute Distress, Comfortable Eyes Eye Exam: Pupils Equal, Pupils Reactive Throat Throat Exam: Oral Mucosa [place] & Moist Pulmonary Resp Exam: Clear Bilaterally, Breath Sounds Equal, No Distress Cardiology CV Exam: Normal Sinus Rhythm, Murmur Gastrointestinal/Abdomen GI Exam: Soft, Non-Tender, Bowel Sounds Present Musculoskeletal MS Exam: Joints Intact, Normal Tone Integumentary Skin Exam: Clear, Warm, Dry, Intact Extremeties Extremities Exam: Trace Edema Neurologic Neuro Exam: Alert, Awake, Oriented Psychiatric Psych Exam: Appropriate Responses Assessment/Plan Discussed Condition With: Patient Assessment Summary: Anemia of CKD, Hypertension, End Stage Renal Disease Problem List: (1) ESRD (end stage renal disease) Plan: We will continue HD TTS. no acute renal concerns; access functions well Continue Renvela for metabolic bone disorder, follow up phosphorus periodically. Renal diet with no protein restriction HD done yesterday and 1 liter was removed. Now transferred to [facility] due to RVR and hypotension. Started on Digoxin and Metoprolol, cardiology consulted. (2) Femoral neck fracture Plan: ortho following s/p left hip hemiarthroplasty 05/22 (3) Murmur Plan: Echocardiogram revealed critical , endocarditis was ruled out he will need eventual valve replacement CV surgery has recommended outpatient follow up (4) Hypertension Plan: continue home medications. Monitor. (5) Anemia Plan: epogen with HD may have developed GI bleeding, see below (6) Vomiting Plan: check emesis for occult blood serial H/H ordered GI reconsulted he was started on protonix KUB film ordered Problem Qualifiers (1) Femoral neck fracture: Qualified Code: S72.002A - Closed fracture of neck of left femur, initial encounter (2) Hypertension: Qualified Code: I10 - Essential hypertension Homa Maazriegos MD May 26, 2016 12:38
[2016-05-26] MEDS: PANTOPRAZOLE SODIUM 40 MG VIAL IV PUSH SCH ×2 (12:41→22:00)
[2016-05-26] MEDS: POLYETHYLENE GLYCOL 17 GM PKG PO SCH (12:44)
--- NOTE | 2016-05-26 20:56 | EKG ---
Date Performed: 05/26/2016 Time Performed: 05:24:26 PTAGE: 55 years EKG: CONSIDER ACUTE ST ELEVATION ME Probable sinus tachycardia Left axis deviation RBBB with left anterior fascicular block Inferior ST elevation, CONSIDER ACUTE INFARCT Marked precordial S T depression, CONSIDER ACUTE INFARCT Lateral ST-T changes are nonspecific Abnormal ECG PREVIOUS TRACING : 05/26/2016 02.25 DOCTOR: Rashel Santana Interpretating Date/Time 05/26/2016 20:56:07
--- NOTE | 2016-05-26 20:57 | EKG ---
Date Performed: 05/26/2016 Time Performed: 02:25:20 PTAGE: 55 years EKG: Sinus tachycardia with borderline 1st degree A-V block Possible left atrial abnormality Lef t axis deviation RBBB with left anterior fascicular block Inferior and lateral ST elevation suggests early repolarization Abnormal ECG NO PREVIOUS TRACING DOCTOR: Rashel Santana Interpretating Date/Time 05/26/2016 20:57:42
[2016-05-26] MEDS: FLUoxetine HCL 20 MG CAP PO SCH (22:00)
[2016-05-27] VITALS (10 sets, daily range): BP systolic 83–123; BP diastolic 51–70; PULSE 74–97; RESP 14–23; TEMP 97.6–98.7; O2SAT 93–98
[2016-05-27] MEDS: HALOPERIDOL LACTATE 5 MG/ML AMP IM SCH (01:00)
[2016-05-27] MEDS: METOPROLOL TARTRATE 5 MG/5 ML VIAL IV PUSH SCH (03:47)
[2016-05-27 04:10] LABS: AUTOMATED NEUTROPHIL # 9.8 TH/MM3 (1.8-7.7); BASOPHIL # 0.1 TH/MM3 (0-0.2); BASOPHIL % 0.9 % (0.0-2.0); EOSINOPHIL # 0.3 TH/MM3 (0-0.4); EOSINOPHIL % 2.1 % (0.0-4.0); HEMATOCRIT 24.5 % (39.0-51.0); HEMO FLAGS DIFF FINAL; LYMPH % 8.4 % (9.0-44.0); LYMPHOCYTE # 1.1 TH/MM3 (1.0-4.8); MEAN CELL VOLUME 89.1 FL (80.0-100.0); MEAN CORPUSCULAR HEMOGLOBIN 29.1 PG (27.0-34.0); MEAN CORPUSCULAR HGB CONC 32.7 % (32.0-36.0); MONO % 10.6 % (0.0-8.0); PLATELET COUNT 391 TH/MM3 (150-450); RED BLOOD COUNT 2.75 MIL/MM3 (4.50-5.90); RED CELL DISTRIBUTION WIDTH 16.6 % (11.6-17.2); WHITE BLOOD COUNT 12.6 TH/MM3 (4.0-11.0)
[2016-05-27 04:33] LABS: APTT (PATIENT) 58.4 SEC (24.3-30.1)
[2016-05-27 04:36] LABS: ALT (GPT) 7 U/L (12-78); ANION GAP 10 MEQ/L (5-15); AST (GOT) 25 U/L (15-37); BICARBONATE 28.6 MEQ/L (21.0-32.0); BLOOD UREA NITROGEN 77 MG/DL (7-18); CHLORIDE 95 MEQ/L (98-107); GLOMERULAR FILTRATION RATE 9 ML/MIN (>89); MAGNESIUM 2.1 MG/DL (1.5-2.5); POTASSIUM 4.3 MEQ/L (3.5-5.1); SODIUM (NA) 134 MEQ/L (136-145)
[2016-05-27 04:49] LABS: ALKALINE PHOSPHATASE 122 U/L (45-117); DIGOXIN 1.7 NG/ML (0.8-2.0); TOTAL BILIRUBIN ADULT 0.3 MG/DL (0.2-1.0)
[2016-05-27 05:00] LABS: CREATINE KINASE 36 U/L (39-308)
[2016-05-27] MEDS: METOCLOPRAMIDE HCL 10 MG/2 ML VIAL IV PUSH SCH ×3 (05:39→21:42)
--- NOTE | 2016-05-27 06:14 | PD.CARD.PN ---
Subjective Subjective Remarks Feels ok, no CO or SOB. Objective Medications Current Medications Medications (Trade) Dose Ordered Sig/Diane Route Start Time Stop Time Status Last Admin (Tylenol) 650 mg Q4H PRN PO 05/07/16 03:45 (Zofran Inj) 4 mg Q6H PRN IVP 05/07/16 03:45 05/24/16 23:29 (Milk Of Magnesia Liq) 30 ml Q12H PRN PO 05/07/16 03:45 (Tylenol) 650 mg Q6H PRN PO 05/07/16 03:45 05/20/16 16:29 Naloxone HCl 0.4 mg 0.4 mg UNSCH PRN IV 05/07/16 03:45 (NS 1000 ml Inj) 1,000 ml @ 0 mls/hr Q0M PRN IV 05/07/16 09:06 Heparin Sodium (Porcine) 8000 units 8,000 units UNSCH PRN IVF 05/07/16 09:15 Sodium Chloride 1,000 ml @ 200 mls/hr Q5H PRN IV 05/07/16 09:06 05/09/16 15:25 (NS 1000 ml Inj) 1,000 ml @ 0 mls/hr Q0M PRN IV 05/07/16 09:06 (Mannitol Inj) 12.5 gm UNSCH PRN IV 05/07/16 09:15 (Albumin 25% Inj) 25 gm UNSCH PRN IV 05/07/16 09:15 05/23/16 11:07 (NS Flush) 5 ml UNSCH PRN IVF 05/07/16 09:15 (Heparin Inj) UNSCH PRN .XX 05/07/16 09:15 (Gentamicin (Dialysis) Inj) 20 mg UNSCH PRN IV 05/07/16 09:15 (Zofran Inj) 4 mg UNSCH PRN IV 05/07/16 09:15 05/26/16 10:21 (Tylenol) 650 mg UNSCH PRN PO 05/07/16 09:15 (Benadryl) 25 mg UNSCH PRN PO 05/07/16 09:15 (Nitrostat Sl) 0.4 mg UNSCH PRN SL 05/07/16 09:15 (Catapres) 0.1 mg UNSCH PRN PO 05/07/16 09:15 (Epogen Inj) 10,000 units UNSCH PRN IV 05/07/16 09:15 05/25/16 10:38 (Gelfoam 12 Mm/7 Mm Top) 1 foam UNSCH PRN TOP 05/07/16 09:15 05/21/16 11:27 (Senokot) 17.2 mg DAILY PO 05/08/16 09:00 05/26/16 10:05 (Geodon) 80 mg BID PO 05/07/16 21:00 05/26/16 22:01 (Depakote Er) 500 mg BID PO 05/07/16 13:00 05/26/16 22:01 (PROzac) 20 mg HS PO 05/07/16 21:00 05/26/16 22:00 (Lopressor) 12.5 mg Q12HR PO 05/07/16 21:00 05/26/16 22:00 (Geodon) 20 mg BID PO 05/07/16 21:00 05/26/16 22:01 (Lactulose Liq) 30 ml DAILY PO 05/10/16 09:00 05/16/16 08:07 (Renvela) 3,200 mg TIDAC PO 05/20/16 12:00 05/26/16 12:43 (NS Flush) 2 ml UNSCH PRN IV FLUSH 05/22/16 19:15 (NS Flush) 2 ml BID IV FLUSH 05/22/16 21:00 05/26/16 22:01 (Lovenox Inj) 30 mg Q12H SQ 05/23/16 08:00 Hold 05/23/16 20:50 (Morphine Inj) 5 mg Q3H PRN IV PUSH 05/22/16 19:15 05/24/16 23:29 (Percocet 5-325 Mg) 1 tab Q4H PRN PO 05/22/16 19:15 (Percocet 5-325 Mg) 2 tab Q4H PRN PO 05/22/16 19:15 05/22/16 23:00 (Phenergan) 25 mg Q4H PRN PO 05/22/16 19:15 (Theragran M Tab) 1 tab BID PO 05/23/16 21:00 07/22/16 20:59 05/26/16 22:00 (Colace) 100 mg BID PO 05/23/16 21:00 05/26/16 22:00 (Ambien) 5 mg HS PRN PO 05/22/16 19:15 (Phenergan Supp) 25 mg Q4H PRN RECTAL 05/23/16 13:45 (Compazine Inj) 5 mg Q6H PRN IM 05/23/16 18:45 05/24/16 09:28 (Reglan Inj) 5 mg Q8HR IV PUSH 05/24/16 14:00 05/27/16 05:39 (Protonix Inj) 40 mg Q12H IV PUSH 05/24/16 11:00 05/26/16 22:00 (Haldol Inj) 2 mg Q8H IM 05/24/16 17:00 05/26/16 18:04 (Miralax) 17 gm DAILY PO 05/25/16 17:00 05/26/16 12:44 Terbutaline Sulfate 1 mg 1 mg UNSCH PRN SQ 05/26/16 08:15 (Neosynephrine Inj/D5W 500 ml Inj) 500 ml @ 0 mls/hr TITRATE IV 05/26/16 10:00 (Lopressor Inj) 5 mg Q6H IV PUSH 05/26/16 10:00 05/27/16 03:47 Vital Signs / I&O Vital Signs Date Time Temp Pulse Resp B/P Pulse Ox O2 Delivery O2 Flow Rate FiO2 05/27/16 04:00 97.6 77 14 96/55 95 05/27/16 00:00 98.0 84 15 109/57 98 05/26/16 23:00 86 05/26/16 20:23 94 Nasal Cannula 3.00 05/26/16 20:00 97.5 82 22 112/65 100 05/26/16 19:00 Nasal Cannula 3.00 05/26/16 18:00 76 05/26/16 16:00 98.1 82 27 108/62 100 05/26/16 16:00 82 05/26/16 14:00 86 05/26/16 12:00 76 05/26/16 12:00 98.3 76 28 99/57 96 05/26/16 10:30 81 05/26/16 10:00 142 05/26/16 08:00 97.9 154 26 84/53 93 05/26/16 07:00 92 Nasal Cannula 5.00 4/2/17 07:00 154 05/26/16 06:15 153 99/54 99 I/O 05/26/16 05/26/16 05/26/16 05/27/16 05/27/16 05/27/16 07:00 15:00 23:00 07:00 15:00 23:00 Intake Total 240 ml 2425 ml Output Total 100 ml 300 ml Balance 140 ml 2125 ml Intake Oral 240 ml 550 ml IV Total 1875 ml Output Urine Total 100 ml 300 ml # Voids 1 # Bowel Movements 0 0 Physical Exam GENERAL: Well-nourished, well-developed patient. SKIN: Warm and dry. L hip incision clean, dry. HEAD: Normocephalic. EYES: No scleral icterus. No injection or drainage. NECK: Supple, trachea midline. No JVD or lymphadenopathy. CARDIOVASCULAR: Regular rate and rhythm with 2/6 ANAYA heard best at RSB. RESPIRATORY: Breath sounds equal bilaterally. No accessory muscle use. Lying flat, comfortable at rest. GASTROINTESTINAL: Abdomen soft, non-tender, nondistended. EXTREMITIES: No cyanosis, or edema. NEUROLOGICAL: Awake, alert, and oriented. Non-focal. Laboratory Laboratory Tests Test 05/26/16 05/27/16 16:10 03:51 Troponin I 0.20 NG/ML 0.17 NG/ML White Blood Count 12.6 TH/MM3 Red Blood Count 2.75 MIL/MM3 Hemoglobin 8.0 GM/DL Hematocrit 24.5 % Mean Corpuscular Volume 89.1 FL Mean Corpuscular Hemoglobin 29.1 PG Mean Corpuscular Hemoglobin 32.7 % Concent Red Cell Distribution Width 16.6 % Platelet Count 391 TH/MM3 Mean Platelet Volume 8.1 FL Neutrophils (%) (Auto) 78.0 % Lymphocytes (%) (Auto) 8.4 % Monocytes (%) (Auto) 10.6 % Eosinophils (%) (Auto) 2.1 % Basophils (%) (Auto) 0.9 % Neutrophils # (Auto) 9.8 TH/MM3 Lymphocytes # (Auto) 1.1 TH/MM3 Monocytes # (Auto) 1.3 TH/MM3 Eosinophils # (Auto) 0.3 TH/MM3 Basophils # (Auto) 0.1 TH/MM3 CBC Comment DIFF FINAL Differential Comment Activated Partial 58.4 SEC Thromboplast Time Sodium Level 134 MEQ/L Potassium Level 4.3 MEQ/L Chloride Level 95 MEQ/L Carbon Dioxide Level 28.6 MEQ/L Anion Gap 10 MEQ/L Blood Urea Nitrogen 77 MG/DL Creatinine 6.58 MG/DL Estimat Glomerular Filtration 9 ML/MIN Rate Random Glucose 179 MG/DL Calcium Level 9.5 MG/DL Phosphorus Level 7.9 MG/DL Magnesium Level 2.1 MG/DL Total Bilirubin 0.3 MG/DL Aspartate Amino Transf 25 U/L (AST/SGOT) Alanine Aminotransferase 7 U/L (ALT/SGPT) Alkaline Phosphatase 122 U/L Total Creatine Kinase 36 U/L Total Protein 5.7 GM/DL Albumin 1.8 GM/DL Digoxin Level 1.7 NG/ML Imaging Last Impressions Lung Scan-VQ Nuclear Medicine 05/26/16 0000 Signed Impressions: Service Date/Time: Thursday, May 26, 2016 10:57 - CONCLUSION: Low probability for pulmonary embolism. Angel Rhoades MD FACR Lower Extremity Ultrasound 05/26/16 0000 Signed Impressions: Service Date/Time: Thursday, May 26, 2016 09:52 - CONCLUSION: Negative for deep venous thrombosis. Angel Rhoades MD FACR Chest X-Ray 05/26/16 0000 Signed Impressions: Service Date/Time: Thursday, May 26, 2016 06:23 - CONCLUSION: 1. Central line in good position. 2. Mild interstitial edema. Angel Rhoades MD FACR Abdomen X-Ray 05/25/16 0600 Signed Impressions: Service Date/Time: Wednesday, May 25, 2016 05:28 - CONCLUSION: There is a normal bowel gas pattern. Gil Meade MD Hip and Pelvis X-Ray 05/22/16 0000 Signed Impressions: Service Date/Time: Sunday, May 22, 2016 19:55 - CONCLUSION: 1. Status post left hip replacement with prosthesis in good position. Chris Oakley MD Assessment and Plan Problem List: (1) Hypertension Assessment and Plan: Stable on current meds. (2) Aortic valve stenosis, critical Assessment and Plan: Continue metoprolol. To be followed by Dr. Moy, pending cath. (3) Chest pain Assessment and Plan: Cath requested by Dr. Moy when pt. stable. Trop elevated at 0.7, 0.20, 0.17. No cp today. (4) SVT (supraventricular tachycardia) Assessment and Plan: NSR today, some sinus tach overnight seen on tele review. Assessment and Plan Stable on current management. D/W pt., RN, Dr. Santana. Problem Qualifiers (1) Hypertension: Qualified Code: I10 - Essential hypertension Justine Bello May 27, 2016 06:14
[2016-05-27] MEDS: INSULIN ASPART SUPPLEMENTAL SCALE SQ SCH ×4 (06:55→22:09)
--- NOTE | 2016-05-27 07:56 | MB ---
cc: SHERI LOPES M.D., VINOD B. M.D. BIGA, LOUIS M. MD DATE OF CONSULTATION: 05/26/2016 REASON FOR CONSULTATION Atrial fibrillation, possible atrial flutter with rapid ventricular response. Mr. Herron is a 55-year-old gentleman living [facility] that was admitted on May 07, 2016 due to a hip fracture. During hospitalization a left hip arthroplasty was done by Dr. Riley. The patient was in the hospital receiving antibiotics. During hospitalization he developed wide complex tachyarrhythmia. The patient has a baseline of left bundle-branch block. I was consulted for evaluation and management. The chart was reviewed. The patient was evaluated. ALLERGIES MADALYN. SOCIAL HISTORY He is living in a [facility]. Negative for smoking and drinking. FAMILY HISTORY Noncontributory to his current medical condition. MEDICATIONS He is currently on: 1. Cardizem IV. 2. Acetaminophen. 3. Clonidine p.r.n. 4. Digoxin. 5. Lovenox. 6. Epogen. 7. Gentamicin. 8. Haloperidol. 9. Metoprolol. REVIEW OF SYSTEMS Currently the patient refers feeling better. No chest pain. No tachyarrhythmia. No fever. PHYSICAL EXAMINATION GENERAL: Alert, fully oriented. He is in bed. VITAL SIGNS: Blood pressure 99/54. Pulse on the monitor is around 70, respiratory rate 18. LUNGS: Ventilated. CARDIOVASCULAR: S1, S2. There is a systolic ejection murmur of 2-3/6. ABDOMEN: Soft. No mass. No bruit. EXTREMITIES: No edema. ELECTROCARDIOGRAM Electrocardiogram showed regular supraventricular tachyarrhythmia with a left bundle branch block. This is a marked left bundle branch block. Currently the monitor shows sinus rhythm with a very long LA interval and marked left bundle branch block. LABORATORY DATA Hemoglobin 8.6, white blood cell 12.4. Potassium is 4. Creatinine is high at 5.39. It is getting better, it was 8.15 yesterday. ASSESSMENT AND RECOMMENDATION Mr. Herron is currently stable. Tachyarrhythmia resolved. He is on Cardizem IV and that will be discontinued. The digoxin needs to be stopped because the gentleman most likely has conduction disease because of marked first-degree AV block and left bundle branch block. He can continue on the beta sal at a very low dose. At that point my recommendation is continued observation. I will monitor the patient during hospitalization. The case was discussed with the patient and the nurse also. Sheri Lopes MD HS/BT /2:26 PM /7:47 AM
[2016-05-27] MEDS: LACTULOSE SYRUP 20 GM/30 ML CUP PO SCH ×2 (09:00→09:13)
[2016-05-27] MEDS: SEVELAMER CARBONATE 800 MG TAB PO SCH ×3 (09:12→15:29)
[2016-05-27] MEDS: MULTIVITAMINS/MINERALS THERAPEUTIC TAB PO SCH ×2 (09:12→21:42)
[2016-05-27] MEDS: DOCUSATE SODIUM 100 MG CAP PO SCH ×2 (09:12→21:42)
[2016-05-27] MEDS: METOPROLOL TARTRATE 25 MG TAB PO SCH ×2 (09:12→21:00)
[2016-05-27] MEDS: DIVALPROEX SODIUM E.R. 500 MG TAB PO SCH ×2 (09:12→21:42)
[2016-05-27] MEDS: ZIPRASIDONE HCL 20 MG CAP PO SCH ×2 (09:13→21:42)
[2016-05-27] MEDS: POLYETHYLENE GLYCOL 17 GM PKG PO SCH (09:13)
[2016-05-27] MEDS: SODIUM CHLORIDE 0.9% FLUSH 10 ML FLUSH IV FLUSH SCH ×2 (09:13→21:42)
[2016-05-27] MEDS: SENNOSIDES 8.6 MG TAB PO SCH (09:13)
[2016-05-27] MEDS: ZIPRASIDONE HCL 80 MG CAP PO SCH ×2 (09:21→21:42)
--- NOTE | 2016-05-27 09:51 | HHI.CCPN ---
Subjective Remarks/Hospital Course 55 y/o male/resident of [facility].. Date of admission 05/07/2016. Date of consultation 05/26/2016. PMHx significant includes coronary disease, bipolar disorder, schizophrenia, seizure disorder, ESRD on HD on , , Fri, hypertension, baseline anemia of chronic kidney disease, gastroesophageal reflux disease, metabolic bone disorder, secondary hyperparathyroidism, diabetes mellitus, Reza's esophagus, hepatitis C. 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 He recently had angioplasty for Left AV fistula was in [place]. He was originally admitted after he tripped on his extra long socks and reportedly fell on his left side. He said he had a severe pain located around his left hip which radiated down his left leg. Patient had a left femoral head fracture Initially the patient was evaluated by orthopedics. Request a cardiology clearance. Patient has a baseline right bundle branch block. Cardiology workup included a stress test back in January 2016 which revealed mild hypokinesis changes in the anterior lateral wall as moderate risk. Recommended outpatient follow-up with cardiology. Echocardiogram 05/07 revealed EF of 65-70% . No regional wall motion abnormality. Severe critical aortic stenosis, left atrial dilatation. BLAYNE 55 mmHg. Mitral valve with mobile annulus. Rule out vegetation. Follow-up DAISY revealed mitral severe crest calcification with a flail posterior leaflet. Cardiothoracic surgery/Dr. Moy did see the patient recommended outpatient follow-up. Each was eventually cleared for surgery which was performed 05/22 with a left hip hemiarthroplasty. Overnight 05/26: Patient was noted to be in a narrow complex tachycardia. Received 1 L normal saline bolus on the floor. Was transferred as a [facility] to room 1309. Monitor again revealed narrow complex tachycardia. Patient received adenosine 6 mg revealed an atrial flutter which converted back to narrow complex tachycardia. Patient received 1 L normal saline bolus here with resolution of hypotension and started on a Cardizem drip with Maximo-Synephrine as necessary maintain proper perfusion. A central line is currently placed in the right subclavian.. She is currently denying chest pain, palpitations, shortness of breath. The patient previously had an ileus which is since resolved. Subjective 05/27: Afebrile. Converted back to first-degree AV block yesterday after 2 hours in ICU. Remains on Maximo-Synephrine at 80 mcg/m. Does not appear septic. Cardiology saw consultation and recommended continued low-dose beta sal with vasopressor support. Objective Vital Signs Date Time Temp Pulse Resp B/P Pulse Ox O2 Delivery O2 Flow Rate FiO2 05/27/16 09:36 95 Nasal Cannula 3.00 05/27/16 04:00 97.6 77 14 96/55 05/25/16 10:42 21 Intake and Output 05/26/16 05/26/16 05/27/16 08:00 16:00 00:00 Intake Total 240 ml 2018 ml 407 ml Output Total 100 ml 200 ml 100 ml Balance 140 ml 1818 ml 307 ml Result Diagram: 05/27/16 0351 05/27/16 0351 Other Results Microbiology Date/Time Procedure Status Source Growth 05/24/16 11:05 Stool Occult Blood (FRANCESCO) - Final Complete Stool Duodenal Aspirate HEMOCCULT POSITIVE Imaging Last Impressions Lung Scan-VQ Nuclear Medicine 05/26/16 0000 Signed Impressions: Service Date/Time: Thursday, May 26, 2016 10:57 - CONCLUSION: Low probability for pulmonary embolism. Angel Rhoades MD FACR Lower Extremity Ultrasound 05/26/16 0000 Signed Impressions: Service Date/Time: Thursday, May 26, 2016 09:52 - CONCLUSION: Negative for deep venous thrombosis. Angel Rhoades MD FACR Chest X-Ray 05/26/16 0000 Signed Impressions: Service Date/Time: Thursday, May 26, 2016 06:23 - CONCLUSION: 1. Central line in good position. 2. Mild interstitial edema. Angel Rhoades MD FACR Abdomen X-Ray 05/25/16 0600 Signed Impressions: Service Date/Time: Wednesday, May 25, 2016 05:28 - CONCLUSION: There is a normal bowel gas pattern. Gil Meade MD Hip and Pelvis X-Ray 05/22/16 0000 Signed Impressions: Service Date/Time: Sunday, May 22, 2016 19:55 - CONCLUSION: 1. Status post left hip replacement with prosthesis in good position. Chris Oakley MD Objective Remarks GENERAL: 55-year-old male, resting in bed in no acute distress on nasal cannula SKIN: Warm and dry. Surgical site left hip clean dry and intact HEAD: Atraumatic. Normocephalic. EYES: Pupils equal and round around 3 mm bilaterally and reactive. No scleral icterus. No injection or drainage. ENT: No nasal bleeding or discharge. Mucous membranes pink and moist. NECK: Trachea midline. No JVD. CARDIOVASCULAR: RRR. S1, S2. No S4. 2/6 systolic murmur right upper sternal border/apex RESPIRATORY: Essentially clear to auscultation. Breath sounds equal bilaterally. GASTROINTESTINAL: Abdomen soft, non-tender, slightly protuberant. Hypoactive bowel sounds are appreciated.. MUSCULOSKELETAL: Extremities with 1+ nonpitting. Left AV fistula with positive palpable thrill NEUROLOGICAL: Awake and alert. No obvious cranial nerve deficits. Motor grossly within normal limits. Five out of 5 muscle strength in the arms and legs. Normal speech. Procedures DAISY EGD A/P Assessment and Plan Neuro/Psych: Bipolar disorder Schizophrenia History of seizures Currently in Depakote 500 mg twice a day/Prozac 20 mg Geodon 100 milligrams twice a day (80 milligrams twice a day home dosage) Evaluated by psychiatry Dr. Cameron. Not suicidal. Recommended Haldol 2 milligrams every 8 hours maximum 10 mg daily Tylenol for fever Percocet/morphine for pain management CV: SVT - appears A flutter Severe aortic stenosis First-degree AV block Right bundle-branch block At anterior fascicular block Mitral valve with severe calcification/flail posterior leaflet History of Hypertension Shock/cardiogenic? Stress test 02/08 revealed moderate hypokinesis in the anterior lateral wall. Moderate risk. 2-D echocardiogram 05/07 revealed EF 65-70%. No regional wall motion abnormality. Critical aortic stenosis. Moderate MS with mobile mass. Left atrium dilated. BLAYNE 55 mmHg. 05/08 revealed EF D5 to 60%. No regional wall motion abnormality. Critical aortic stenosis. Severe calcification mitral valve. [address] Moy/CT surgery. Recommended cardiac catheterization/undergo orthopedic surgery and follow-up as outpatient Today, patient was on SVT on floor. In the intensive care unit, he was given 6 mg IV of adenosine and appeared to be a flutter on telemetry. Start Maximo-Synephrine drip to maintain adequate MAP patient with aortic stenosis. Currently at 60 mg a minute Started beta sal and digoxin. Will avoid calcium channel blockers for rate control to avoid afterload reduction. Digoxin discontinued after two 0.25 mg boluses provided Initial troponin 0.07. Potassium and magnesium within normal limits. TSH 0.7. Primary team has reconsulted cardiology. On metoprolol 12.5 mg by mouth twice a day Resp: Nasal cannula to maintain saturations greater than equal to 92% Incentive Spirometry while awake Follow-up chest x-ray GI: Gastroesophageal reflux disease LA class B esophagitis Gastritis Duodenitis History of Reza's esophagus Dysphasia Hepatitis C EGD 05/10 for dysphagia revealed. There was LA Class B esophagitis noted; erythematous gastritis in the gastric antrum and Duodenal inflammation was found in the duodenal bulb Biopsies revealed chronic inflammation dysplasia Patient is on Zantac 75 mg by mouth daily at home for gastritis. On Protonix 40 mg IV daily for gastroesophageal reflux disease. Colace twice a day/Senokot/MiraLAX/lactulose daily for bowel regimen Currently on soft renal diet : Lara if indicated for accurate I's and O's in a critically ill patient Endo: Diabetes mellitus Plan sliding-scale insulin with Accu-Cheks to maintain euglycemia. On sliding scale insulin at [facility] Renal: End-stage renal disease on hemodialysis Friday//Friday Secondary hyperparathyroidism Left AV fistula positive thrill. Next hemodialysis planned for Friday. Heme: Anemia of chronic kidney disease receive epogen with hemodialysis Leukocytosis Hemoglobin stable. CBC in a.m. ID: Monitor for infection Initially seen by Dr. Hahn for possible mitral valve agitation. Since signed off. FEN: Hyponatremia Monitor BMP and replace electrolytes as clinically indicated MSK: Postop day #5 for left hip hemiarthroplasty secondary to left femoral neck fracture Seen by orthopedics/Dr. Burr. PT/OT Access -Right subclavian CVL placed in OR day #6 Prophylaxis - GI -Protonix - DVT - SCD/Lovenox Critical Care: The total critical care time was 35 minutes. Time to perform other separately billable procedures was not included in the critical care time. Joselo Grissom MD May 27, 2016 09:51
--- NOTE | 2016-05-27 10:31 | HHI.NPPN ---
Subjective General Problems: Anemia, Hypertension Renal Failure: Chronic, End Stage Renal Disease Interval History Lying supine. He is awake and alert. Back in NSR. He is on neosynepherine. ( Zahra Aguilar) Review of Systems General Constitutional: Fatigue (Zahra Aguilar) Gastrointestinal Gastrointestinal: Nausea & Vomiting (Zahra Aguilar) Musculoskeletal MS: Pain/Stiffness MS Remarks some numbness left leg, motor impaired secondary to pain (Zahra Aguilar) Objective Data Data 05/26/16 05/27/16 19:00 07:00 Intake Total 2018 ml 786 ml Output Total 200 ml 100 ml Balance 1818 ml 686 ml Intake Oral 300 ml 490 ml IV Total 1718 ml 296 ml Output Urine Total 200 ml 100 ml # Voids 2 # Bowel Movements 0 0 Vital Signs Date Time Temp Pulse Resp B/P Pulse Ox O2 Delivery O2 Flow Rate FiO2 05/27/16 09:36 95 Nasal Cannula 3.00 05/27/16 08:00 84 05/27/16 08:00 97.8 82 23 102/55 98 05/27/16 08:00 98 Nasal Cannula 3.50 05/27/16 04:00 97.6 77 14 96/55 95 05/27/16 00:00 98.0 84 15 109/57 98 05/26/16 23:00 86 05/26/16 20:23 94 Nasal Cannula 3.00 05/26/16 20:00 97.5 82 22 112/65 100 05/26/16 19:00 Nasal Cannula 3.00 05/26/16 18:00 76 05/26/16 16:00 98.1 82 27 108/62 100 05/26/16 16:00 82 05/26/16 14:00 86 05/26/16 12:00 76 05/26/16 12:00 98.3 76 28 99/57 96 05/26/16 10:30 81 (Zahra Aguilar) -: 05/27/16 0351 05/27/16 0351 Imaging Last Impressions Lung Scan-VQ Nuclear Medicine 05/26/16 0000 Signed Impressions: Service Date/Time: Thursday, May 26, 2016 10:57 - CONCLUSION: Low probability for pulmonary embolism. Angel Rhoades MD FACR Lower Extremity Ultrasound 05/26/16 0000 Signed Impressions: Service Date/Time: Thursday, May 26, 2016 09:52 - CONCLUSION: Negative for deep venous thrombosis. Angel Rhoades MD FACR Chest X-Ray 05/26/16 0000 Signed Impressions: Service Date/Time: Thursday, May 26, 2016 06:23 - CONCLUSION: 1. Central line in good position. 2. Mild interstitial edema. Angel Rhoades MD FACR Abdomen X-Ray 05/25/16 0600 Signed Impressions: Service Date/Time: Wednesday, May 25, 2016 05:28 - CONCLUSION: There is a normal bowel gas pattern. Gil Meade MD Hip and Pelvis X-Ray 05/22/16 0000 Signed Impressions: Service Date/Time: Sunday, May 22, 2016 19:55 - CONCLUSION: 1. Status post left hip replacement with prosthesis in good position. Chris Oakley MD Drip Comment neosynepherine (JeffZahra B. INDUSTRIAL TRAINER) Physical Exam General Appearance: Well Nourished, No Acute Distress, Comfortable (JeffZahra B. INDUSTRIAL TRAINER) Eyes Eye Exam: Pupils Equal, Pupils Reactive (JeffZahra B. INDUSTRIAL TRAINER) Throat Throat Exam: Oral Mucosa [place] & Moist (Jeff,Zahra B. INDUSTRIAL TRAINER) Pulmonary Resp Exam: Clear Bilaterally, Breath Sounds Equal, No Distress (Jeff, Zahra B. INDUSTRIAL TRAINER) Cardiology CV Exam: Normal Sinus Rhythm, Murmur CV Remarks III/ systolic murmur, mitral area, radiates to left axilla (JeffZahra B. INDUSTRIAL TRAINER) Gastrointestinal/Abdomen GI Exam: Soft, Non-Tender, Bowel Sounds Present (Jeff,Zahra B. INDUSTRIAL TRAINER) Musculoskeletal MS Exam: Joints Intact, Normal Tone (Jeff,Zahra B. INDUSTRIAL TRAINER) Integumentary Skin Exam: Clear, Warm, Dry, Intact (Jeff,Zahra B. INDUSTRIAL TRAINER) Extremeties Extremities Exam: Trace Edema (JeffZahra B. INDUSTRIAL TRAINER) Neurologic Neuro Exam: Alert, Awake, Oriented (JeffZahra B. INDUSTRIAL TRAINER) Psychiatric Psych Exam: Appropriate Responses (Jeff,Zahra B. INDUSTRIAL TRAINER) Assessment/Plan Discussed Condition With: Patient Assessment Summary: Anemia of CKD, Hypertension, End Stage Renal Disease Problem List: (1) ESRD (end stage renal disease) Plan: We will continue HD TTS. He is due tomorrow no acute renal concerns; access functions well Continue Renvela for metabolic bone disorder, follow up phosphorus periodically. He reportedly has refused some doses/missed others as he was off floor discussed compliance Renal diet with no protein restriction renal panel in am (2) Femoral neck fracture Plan: ortho following s/p left hip hemiarthroplasty 05/22 (3) Murmur Plan: Echocardiogram revealed critical , endocarditis was ruled out he will need eventual valve replacement CV surgery had recommended outpatient follow up he then went in to SVT, has converted to NSR on Cardizem, which was stopped now on neosynepherine for hypotension may require heart cath this admission (4) Hypertension Plan: hypotensive on pressors (5) Anemia Plan: epogen with HD (6) Vomiting Plan: GI has evaluated resolving ileus tolerating diet (Zahra Aguilar) Plan patient was seen and examined. Agree with above assessment and plan. He was advised to take the binders regularly with meals. (Felix Andersen MD) Problem Qualifiers (1) Femoral neck fracture: Qualified Code: S72.002A - Closed fracture of neck of left femur, initial encounter (2) Hypertension: Qualified Code: I10 - Essential hypertension Zahra Aguilar May 27, 2016 10:31 Felix Andersen MD May 27, 2016 14:04
[2016-05-27] MEDS ORDERED: SODIUM CHLORIDE 0.9% FLUSH 10 ML FLUSH IV FLUSH PRN (10:45)
[2016-05-27] MEDS ORDERED: oxyCODONE/ACETAMINOPHEN 5 MG/325 MG TAB PO PRN ×2 (10:45)
[2016-05-27] MEDS ORDERED: ONDANSETRON HCL 4 MG/2 ML VIAL IV PRN (10:45)
[2016-05-27] MEDS ORDERED: MORPHINE SULFATE 4 MG/ML INJ IV PUSH PRN (10:45)
[2016-05-27] MEDS ORDERED: KETOROLAC TROMETHAMINE 30 MG/ML (IVP) VIAL IVP ONE (10:45)
[2016-05-27] MEDS: PANTOPRAZOLE SODIUM 40 MG VIAL IV PUSH SCH ×2 (11:40→23:48)
--- NOTE | 2016-05-27 16:42 | HHI.GIFU ---
Subjective Remarks Pt resting comfortably in bed, asking for cheerios. He had BM yesterday, said it was loose, no blood. No nausea or vomiting or abdominal pain. He was halicat last night for RVR and now in ICU on pressors. (Sanjuana Amos) Objective Vitals I&O Vital Signs Date Time Temp Pulse Resp B/P Pulse Ox O2 Delivery O2 Flow Rate FiO2 05/27/16 15:00 79 05/27/16 12:00 97.7 74 21 106/57 98 05/27/16 09:36 95 Nasal Cannula 3.00 05/27/16 08:00 84 05/27/16 08:00 97.8 82 23 102/55 98 05/27/16 08:00 98 Nasal Cannula 3.50 05/27/16 04:00 97.6 77 14 96/55 95 05/27/16 00:00 98.0 84 15 109/57 98 05/26/16 23:00 86 05/26/16 20:23 94 Nasal Cannula 3.00 05/26/16 20:00 97.5 82 22 112/65 100 05/26/16 19:00 Nasal Cannula 3.00 05/26/16 18:00 76 I/O 05/26/16 05/26/16 05/26/16 05/27/16 05/27/16 05/27/16 07:00 15:00 23:00 07:00 15:00 23:00 Intake Total 240 ml 2425 ml 379 ml 352 ml Output Total 100 ml 300 ml 200 ml Balance 140 ml 2125 ml 379 ml 152 ml Intake Oral 240 ml 550 ml 240 ml 260 ml IV Total 1875 ml 139 ml 92 ml Output Urine Total 100 ml 300 ml 200 ml # Voids 1 1 2 # Bowel Movements 0 0 0 0 Laboratory Laboratory Tests Test 05/27/16 03:51 White Blood Count 12.6 Red Blood Count 2.75 Hemoglobin 8.0 Hematocrit 24.5 Mean Corpuscular Volume 89.1 Mean Corpuscular Hemoglobin 29.1 Mean Corpuscular Hemoglobin 32.7 Concent Red Cell Distribution Width 16.6 Platelet Count 391 Mean Platelet Volume 8.1 Neutrophils (%) (Auto) 78.0 Lymphocytes (%) (Auto) 8.4 Monocytes (%) (Auto) 10.6 Eosinophils (%) (Auto) 2.1 Basophils (%) (Auto) 0.9 Neutrophils # (Auto) 9.8 Lymphocytes # (Auto) 1.1 Monocytes # (Auto) 1.3 Eosinophils # (Auto) 0.3 Basophils # (Auto) 0.1 CBC Comment DIFF FINAL Differential Comment Activated Partial 58.4 Thromboplast Time Sodium Level 134 Potassium Level 4.3 Chloride Level 95 Carbon Dioxide Level 28.6 Anion Gap 10 Blood Urea Nitrogen 77 Creatinine 6.58 Estimat Glomerular Filtration 9 Rate Random Glucose 179 Calcium Level 9.5 Phosphorus Level 7.9 Magnesium Level 2.1 Total Bilirubin 0.3 Aspartate Amino Transf 25 (AST/SGOT) Alanine Aminotransferase 7 (ALT/SGPT) Alkaline Phosphatase 122 Total Creatine Kinase 36 Troponin I 0.17 Total Protein 5.7 Albumin 1.8 Digoxin Level 1.7 Date/Time Procedure Status Source Growth 05/24/16 11:05 Stool Occult Blood (FRANCESCO) - Final Complete Stool Duodenal Aspirate HEMOCCULT POSITIVE Imaging Last Impressions Lung Scan-VQ Nuclear Medicine 05/26/16 0000 Signed Impressions: Service Date/Time: Thursday, May 26, 2016 10:57 - CONCLUSION: Low probability for pulmonary embolism. Angel Rhoades MD FACR Lower Extremity Ultrasound 05/26/16 0000 Signed Impressions: Service Date/Time: Thursday, May 26, 2016 09:52 - CONCLUSION: Negative for deep venous thrombosis. Angel Rhaodes MD FACR Chest X-Ray 05/26/16 0000 Signed Impressions: Service Date/Time: Thursday, May 26, 2016 06:23 - CONCLUSION: 1. Central line in good position. 2. Mild interstitial edema. Angel Rhoades MD FACR Abdomen X-Ray 05/25/16 0600 Signed Impressions: Service Date/Time: Wednesday, May 25, 2016 05:28 - CONCLUSION: There is a normal bowel gas pattern. Gil Meade MD Hip and Pelvis X-Ray 05/22/16 0000 Signed Impressions: Service Date/Time: Sunday, May 22, 2016 19:55 - CONCLUSION: 1. Status post left hip replacement with prosthesis in good position. Chris Oakley MD Physical Exam HEENT: Normocephalic; atraumatic; no jaundice. CHEST: CTA, diminished bases CARDIAC: Regular rate, 3/6 holosystolic murmur ABDOMEN: Soft, nondistended, nontender; no hepatosplenomegaly; bowel sounds are present in all four quadrants. EXTREMITIES: BLE weakness SKIN: Multiple dry scabs SPECIAL EDUCATION PARAPROFESSIONAL: No focal deficits; alert and oriented times three. (Sanjuana Amos) Assessment and Plan Plan ASSESSMENT: - Post op Ileus, improving. S/P recent EGD (05/10/16)-----> 1. There was LA Class B esophagitis noted; multiple biopsies were performed 2. There was erythematous gastritis in the gastric antrum 3. Duodenal inflammation was found in the duodenal bulb 4. Retroflexed views revealed no abnormalities. Pathology with moderate acute and chronic inflammatory changes consistent with reflux negative for intestinal metaplasia and dysplasia. Developed n/v after surgery. KUB yesterday, had gastric distention consistent with ileus. He was made NPO with NGT to LIWS and started at reduced dose reglan. Today KUB unremarkable. Clinically, much improved. D/C'd NGT, will continue renal diet. - Dysphagia, resolved. - GERD, Esophagitis, gastritis. - History of Reza s/p Barrx/ablation X 2 in August and November of last year. - S/P mechanical fall resulting in left femoral neck fracture- ortho following. - CAD, Heart murmur per Cardiology - Critical aortic stenosis, mod-severe MV regurg. S/P DAISY, CVT evaluation, not a candidate for valve replacement until after recovery from hip surgery. - End-stage renal disease on HD . Thur. Sat. and diabetes per attending Plan: - Renal diet - Protonix 40mg IV BID - Reglan 5mg IV q8h - Cont. Lactulose - Encourage mobility, OOB to chair - Repeat EGD in one year - GI will sign off, reconsult as needed - Patient seen and examined by Dr. Rodriguez and myself and this note is written on his behalf. (Sanjuana Amos) Physician Comments Seen and examined with DAVY, doing well from gi standpoint. Diet as tolerated. Illeus resolved. Gi will sign off, reconsult as needed. Thank you (Love Rodriguez MD) Sanjuana Amos May 27, 2016 16:42 Love Rodriguez MD May 27, 2016 18:04
[2016-05-27] MEDS ORDERED: SODIUM CHLORIDE 0.9% FLUSH 10 ML FLUSH IV FLUSH SCH (21:00)
[2016-05-27] MEDS: FLUoxetine HCL 20 MG CAP PO SCH (21:42)
[2016-05-28] VITALS (13 sets, daily range): BP systolic 95–156; BP diastolic 51–75; PULSE 60–99; RESP 12–23; TEMP 98.1–98.6; O2SAT 92–98
[2016-05-28 04:13] LABS: AUTOMATED NEUTROPHIL # 8.4 TH/MM3 (1.8-7.7); BASOPHIL # 0.1 TH/MM3 (0-0.2); BASOPHIL % 0.6 % (0.0-2.0); EOSINOPHIL # 0.2 TH/MM3 (0-0.4); EOSINOPHIL % 1.7 % (0.0-4.0); HEMATOCRIT 23.2 % (39.0-51.0); HEMO FLAGS DIFF FINAL; LYMPH % 6.6 % (9.0-44.0); LYMPHOCYTE # 0.7 TH/MM3 (1.0-4.8); MEAN CELL VOLUME 88.2 FL (80.0-100.0); MEAN CORPUSCULAR HEMOGLOBIN 29.6 PG (27.0-34.0); MEAN CORPUSCULAR HGB CONC 33.5 % (32.0-36.0); MONO % 10.9 % (0.0-8.0); NEUT % 80.2 % (16.0-70.0); PLATELET COUNT 327 TH/MM3 (150-450); RED BLOOD COUNT 2.63 MIL/MM3 (4.50-5.90); RED CELL DISTRIBUTION WIDTH 16.5 % (11.6-17.2); WHITE BLOOD COUNT 10.5 TH/MM3 (4.0-11.0)
[2016-05-28 04:43] LABS: BICARBONATE 26.1 MEQ/L (21.0-32.0); MAGNESIUM 2.1 MG/DL (1.5-2.5); POTASSIUM 4.5 MEQ/L (3.5-5.1)
[2016-05-28] MEDS: METOCLOPRAMIDE HCL 10 MG/2 ML VIAL IV PUSH SCH ×3 (06:44→21:30)
[2016-05-28] MEDS: INSULIN ASPART SUPPLEMENTAL SCALE SQ SCH ×4 (06:44→21:30)
[2016-05-28] MEDS: METOPROLOL TARTRATE 25 MG TAB PO SCH ×2 (06:53→21:15)
[2016-05-28] MEDS: SEVELAMER CARBONATE 800 MG TAB PO SCH ×4 (08:00→17:11)
[2016-05-28] MEDS: EPOETIN ALFA 10,000 UNITS/ML VIAL IV PRN (08:49)
[2016-05-28] MEDS: ALBUMIN HUMAN 25% 25 GM/100 ML BAGP IV PRN (08:49)
[2016-05-28] MEDS: GELATIN 12 MM/7 MM FOAM TOP PRN (08:49)
--- NOTE | 2016-05-28 09:38 | HHI.NPPN ---
Subjective General Problems: Anemia, Hypertension Renal Failure: Chronic, End Stage Renal Disease Interval History Seen during bedside dialysis. He is sleeping. Pressors stopped, BP borderline low. (Zahra Aguilar) Review of Systems General Constitutional: Fatigue (Zahra Aguilar) Gastrointestinal Gastrointestinal: Nausea & Vomiting (Zahra Aguilar) Musculoskeletal MS: Pain/Stiffness MS Remarks some numbness left leg, motor impaired secondary to pain (Zahra Aguilar) Objective Data Data 05/27/16 05/28/16 19:00 07:00 Intake Total 352 ml 480 ml Output Total 200 ml 150 ml Balance 152 ml 330 ml Intake Oral 260 ml 480 ml IV Total 92 ml 0 ml Output Urine Total 200 ml 150 ml # Voids 2 2 # Bowel Movements 0 2 Vital Signs Date Time Temp Pulse Resp B/P Pulse Ox O2 Delivery O2 Flow Rate FiO2 05/28/16 07:00 Nasal Cannula 2.00 97 05/28/16 06:00 95 05/28/16 04:00 98.5 96 20 96/55 98 05/28/16 04:00 96 05/28/16 02:00 99 05/28/16 00:00 98.1 99 20 98/57 92 05/28/16 00:00 99 05/27/16 22:00 97 05/27/16 20:30 97 Nasal Cannula 2.00 05/27/16 20:00 98.5 92 15 83/51 96 05/27/16 20:00 92 05/27/16 19:00 Nasal Cannula 3.00 05/27/16 16:00 98.7 88 20 123/70 93 05/27/16 16:00 Nasal Cannula 21 05/27/16 15:00 79 05/27/16 12:00 97.7 74 21 106/57 98 05/27/16 09:36 95 Nasal Cannula 3.00 (Zahra Aguilar) -: 05/28/16 0350 05/28/16 0350 Imaging Last Impressions Lung Scan-VQ Nuclear Medicine 05/26/16 0000 Signed Impressions: Service Date/Time: Thursday, May 26, 2016 10:57 - CONCLUSION: Low probability for pulmonary embolism. Angel Rhoades MD FACR Lower Extremity Ultrasound 05/26/16 0000 Signed Impressions: Service Date/Time: Thursday, May 26, 2016 09:52 - CONCLUSION: Negative for deep venous thrombosis. Angel Rhoades MD FACR Chest X-Ray 05/26/16 0000 Signed Impressions: Service Date/Time: Thursday, May 26, 2016 06:23 - CONCLUSION: 1. Central line in good position. 2. Mild interstitial edema. Angel Rhoades MD FACR Abdomen X-Ray 05/25/16 0600 Signed Impressions: Service Date/Time: Wednesday, May 25, 2016 05:28 - CONCLUSION: There is a normal bowel gas pattern. Gil Meade MD Hip and Pelvis X-Ray 05/22/16 0000 Signed Impressions: Service Date/Time: Sunday, May 22, 2016 19:55 - CONCLUSION: 1. Status post left hip replacement with prosthesis in good position. Chris Oakley MD (Zahra Aguilar B. BILL CLERK) Physical Exam General Appearance: Well Developed, Well Nourished, No Acute Distress, Comfortable, Sleeping (Zahra Aguilar B. BILL CLERK) Eyes Eye Exam: Pupils Equal, Pupils Reactive (JeffZahra B. BILL CLERK) Throat Throat Exam: Oral Mucosa [place] & Moist (JeffZahra B. BILL CLERK) Pulmonary Resp Exam: Clear Bilaterally, Breath Sounds Equal, No Distress (Jeff Zahra B. BILL CLERK) Cardiology CV Exam: Normal Sinus Rhythm, Murmur CV Remarks III/ systolic murmur, mitral area, radiates to left axilla (JeffZahra B. BILL CLERK) Gastrointestinal/Abdomen GI Exam: Soft, Non-Tender, Bowel Sounds Present (JeffZahra B. BILL CLERK) Musculoskeletal MS Exam: Joints Intact, Normal Tone (JeffZahra B. BILL CLERK) Integumentary Skin Exam: Clear, Warm, Dry, Intact (JeffZahra B. BILL CLERK) Extremeties Extremities Exam: Pedal Pulses Palpable, Trace Edema (JeffZahra B. BILL CLERK) Neurologic Neuro Exam: Alert, Awake, Oriented (Zahra Aguilar B. BILL CLERK) Psychiatric Psych Exam: Appropriate Responses (Zahra Aguilar B. BILL CLERK) Assessment/Plan Discussed Condition With: Patient Assessment Summary: Anemia of CKD, Hypertension, End Stage Renal Disease Problem List: (1) ESRD (end stage renal disease) Plan: seen during bedisde dialysis on a 3K, 400 BFR, limited fluid removal (1L ) due to hypotension We will continue HD TTS no acute renal concerns; access functions well Continue Renvela for metabolic bone disorder, follow up phosphorus periodically. Level is elevated but improving Renal diet with no protein restriction renal panel in am (2) Femoral neck fracture Plan: ortho following s/p left hip hemiarthroplasty 05/22 (3) Murmur Plan: Echocardiogram revealed critical , endocarditis was ruled out he will need eventual valve replacement CV surgery had recommended outpatient follow up spontaneously went in to SVT overnight 05/27, later converted to NSR , off Cardizem off neosynepherine may require heart cath this admission (4) Hypertension Plan: marginally hypotensive , he is off pressors given albumin during dialysis (5) Anemia Plan: worsening anemia continue epogen with HD check iron profile (6) Vomiting Plan: GI has signed off ileus resolved tolerating diet (Zahra Aguilar) Plan patient was seen and examined. Agree with above assessment and plan. (Felix Andersen MD) Problem Qualifiers (1) Femoral neck fracture: Qualified Code: S72.002A - Closed fracture of neck of left femur, initial encounter (2) Hypertension: Qualified Code: I10 - Essential hypertension Zahra Aguilar May 28, 2016 09:38 Felix Andersen MD May 28, 2016 14:09
[2016-05-28] MEDS: SODIUM CHLORIDE 0.9% FLUSH 10 ML FLUSH IV FLUSH SCH ×2 (12:32→21:00)
[2016-05-28] MEDS: MULTIVITAMINS/MINERALS THERAPEUTIC TAB PO SCH ×2 (12:32→21:17)
[2016-05-28] MEDS: DIVALPROEX SODIUM E.R. 500 MG TAB PO SCH ×2 (12:32→21:14)
[2016-05-28] MEDS: ZIPRASIDONE HCL 20 MG CAP PO SCH ×2 (12:32→21:16)
[2016-05-28] MEDS: ZIPRASIDONE HCL 80 MG CAP PO SCH ×2 (12:32→21:15)
[2016-05-28] MEDS: PANTOPRAZOLE SODIUM 40 MG VIAL IV PUSH SCH ×2 (12:33→22:45)
[2016-05-28] MEDS: LACTULOSE SYRUP 20 GM/30 ML CUP PO SCH (12:39)
[2016-05-28] MEDS: SENNOSIDES 8.6 MG TAB PO SCH (12:40)
[2016-05-28] MEDS: DOCUSATE SODIUM 100 MG CAP PO SCH ×2 (12:40→21:15)
[2016-05-28] MEDS: POLYETHYLENE GLYCOL 17 GM PKG PO SCH (12:40)
--- NOTE | 2016-05-28 13:23 | PD.TRANSFR ---
Transfer Summary Admission Date May 07, 2016 at 03:36 Admitting Diagnosis L Femoral Neck Fx, Fall Diagnoses: (1) Femoral neck fracture (2) Fall (3) Schizophrenia (4) DM (diabetes mellitus) (5) Anemia (6) End stage renal failure on dialysis (7) Aortic valve stenosis, critical (8) Mitral valve stenosis (9) Mitral valve regurgitation (10) Esophagitis, [place] grade B (11) Gastritis (12) Dysphagia Transfer Summary/Subjective S/P left Hip arthroplasty (lula) Dr. Max cooper for SVT. by echo. CXR with mild pulmonary venous congestion today before dialysis run. Breathing comfortable. Transfer to floor. Objective Vital Signs Date Time Temp Pulse Resp B/P Pulse Ox O2 Delivery O2 Flow Rate FiO2 05/28/16 07:00 Nasal Cannula 2.00 97 05/28/16 06:00 95 05/28/16 04:00 98.5 20 96/55 98 Intake and Output 05/27/16 05/27/16 05/28/16 08:00 16:00 00:00 Intake Total 379 ml 352 ml 240 ml Output Total 200 ml 150 ml Balance 379 ml 152 ml 90 ml Result Diagram: 05/28/16 0350 05/28/16 0350 Imaging Last Impressions Lung Scan-VQ Nuclear Medicine 05/26/16 0000 Signed Impressions: Service Date/Time: Thursday, May 26, 2016 10:57 - CONCLUSION: Low probability for pulmonary embolism. Angel Rhoades MD FACR Lower Extremity Ultrasound 05/26/16 0000 Signed Impressions: Service Date/Time: Thursday, May 26, 2016 09:52 - CONCLUSION: Negative for deep venous thrombosis. Angel Rhoades MD FACR Chest X-Ray 05/26/16 0000 Signed Impressions: Service Date/Time: Thursday, May 26, 2016 06:23 - CONCLUSION: 1. Central line in good position. 2. Mild interstitial edema. Angel Rhoades MD FACR Abdomen X-Ray 05/25/16 0600 Signed Impressions: Service Date/Time: Wednesday, May 25, 2016 05:28 - CONCLUSION: There is a normal bowel gas pattern. Gil Meade MD Hip and Pelvis X-Ray 05/22/16 0000 Signed Impressions: Service Date/Time: Sunday, May 22, 2016 19:55 - CONCLUSION: 1. Status post left hip replacement with prosthesis in good position. Chris Oakley MD Objective Remarks GENERAL: 55-year-old male, resting in bed in no acute distress on nasal cannula SKIN: Warm and dry. Surgical site left hip clean dry and intact HEAD: Atraumatic. Normocephalic. EYES: Pupils equal and round around 2 mm bilaterally and reactive. ENT: No nasal bleeding or discharge. Mucous membranes pink and moist. NECK: Trachea midline. Airway widely patent. CARDIOVASCULAR: RRR. S1, S2. No S4. 3/6 systolic murmur right upper sternal border/apex RESPIRATORY: Essentially clear to auscultation. Breath sounds equal bilaterally. No crackles or wheezes. GASTROINTESTINAL: Abdomen soft, non-tender, slightly protuberant. Hypoactive bowel sounds are appreciated.. MUSCULOSKELETAL: Extremities with 1+ nonpitting. Left AV fistula with positive palpable thrill NEUROLOGICAL: Awake and alert. No obvious cranial nerve deficits. Motor grossly within normal limits. Five out of 5 muscle strength in the arms and legs. Normal speech. Procedures DAISY EGD Urinary Catheter: Yes Lara insert reason: Measure Accurate Output A/P Assessment and Plan Neuro/Psych: Bipolar disorder Schizophrenia History of seizures Currently in Depakote 500 mg twice a day/Prozac 20 mg Geodon 100 milligrams twice a day (80 milligrams twice a day home dosage) Evaluated by psychiatry Dr. Cameron. Not suicidal. Recommended Haldol 2 milligrams every 8 hours maximum 10 mg daily Tylenol for fever Percocet/morphine for pain management CV: SVT - appears A flutter Severe aortic stenosis First-degree AV block Right bundle-branch block At anterior fascicular block Mitral valve with severe calcification/flail posterior leaflet History of Hypertension Shock/cardiogenic? Stress test 02/08 revealed moderate hypokinesis in the anterior lateral wall. Moderate risk. 2-D echocardiogram 05/07 revealed EF 65-70%. No regional wall motion abnormality. Critical aortic stenosis. Moderate MS with mobile mass. Left atrium dilated. BLAYNE 55 mmHg. 05/08 revealed EF D5 to 60%. No regional wall motion abnormality. Critical aortic stenosis. Severe calcification mitral valve. [address] oMy/CT surgery. Recommended cardiac catheterization/undergo orthopedic surgery and follow-up as outpatient Today, patient was on SVT on floor. In the intensive care unit, he was given 6 mg IV of adenosine and appeared to be a flutter on telemetry. Start Maximo-Synephrine drip to maintain adequate MAP patient with aortic stenosis. Currently at 60 mg a minute Started beta sal and digoxin. Will avoid calcium channel blockers for rate control to avoid afterload reduction. Digoxin discontinued after two 0.25 mg boluses provided Initial troponin 0.07. Potassium and magnesium within normal limits. TSH 0.7. Primary team has reconsulted cardiology. On metoprolol 12.5 mg by mouth twice a day. 1st degree block noted. Resp: Nasal cannula to maintain saturations greater than equal to 92% Incentive Spirometry while awake Follow-up chest x-ray GI: Gastroesophageal reflux disease LA class B esophagitis Gastritis Duodenitis History of Reza's esophagus Dysphasia Hepatitis C EGD 05/10 for dysphagia revealed. There was LA Class B esophagitis noted; erythematous gastritis in the gastric antrum and Duodenal inflammation was found in the duodenal bulb Biopsies revealed chronic inflammation dysplasia Patient is on Zantac 75 mg by mouth daily at home for gastritis. On Protonix 40 mg IV daily for gastroesophageal reflux disease. Colace twice a day/Senokot/MiraLAX/lactulose daily for bowel regimen Currently on soft renal diet : Lara if indicated for accurate I's and O's in a critically ill patient Endo: Diabetes mellitus Plan sliding-scale insulin with Accu-Cheks to maintain euglycemia. On sliding scale insulin at halfway Renal: End-stage renal disease on hemodialysis Friday//Friday Secondary hyperparathyroidism Left AV fistula positive thrill. Next hemodialysis planned for Heme: Anemia of chronic kidney disease receive epogen with hemodialysis Leukocytosis Hemoglobin stable. CBC in a.m. ID: Monitor for infection Initially seen by Dr. Hahn for possible mitral valve vegitation. Since signed off. FEN: Hyponatremia Monitor BMP and replace electrolytes as clinically indicated MSK: Postop day #5 for left hip hemiarthroplasty secondary to left femoral neck fracture Seen by orthopedics/Dr. Burr. PT/OT Access -Right subclavian CVL placed in OR day #6 Prophylaxis - GI -Protonix - DVT - SCD/Lovenox Overall impression: Improved hemodynamics now that heart rate control is better. He tends to run SBP 90 - 100. Costa Theodore MD May 28, 2016 13:23
[2016-05-28] MEDS: FLUoxetine HCL 20 MG CAP PO SCH (21:15)
[2016-05-29] VITALS (13 sets, daily range): BP systolic 90–111; BP diastolic 51–61; PULSE 74–90; RESP 14–24; TEMP 97.5–98.7; O2SAT 95–100
[2016-05-29 05:18] LABS: BICARBONATE 29.4 MEQ/L (21.0-32.0); POTASSIUM 4.1 MEQ/L (3.5-5.1)
[2016-05-29] MEDS: METOCLOPRAMIDE HCL 10 MG/2 ML VIAL IV PUSH SCH ×3 (06:16→20:37)
[2016-05-29] MEDS: INSULIN ASPART SUPPLEMENTAL SCALE SQ SCH ×4 (06:17→20:38)
--- NOTE | 2016-05-29 07:34 | HHI.NPPN ---
Subjective General Problems: Anemia, Hypertension Renal Failure: Chronic, End Stage Renal Disease Interval History SBP low, had dialysis yesterday, UF was 1000 ml. Review of Systems General Constitutional: Fatigue Gastrointestinal Gastrointestinal: Nausea & Vomiting Musculoskeletal MS: Pain/Stiffness MS Remarks some numbness left leg, motor impaired secondary to pain Objective Data Data 05/28/16 05/29/16 19:00 07:00 Intake Total 730 ml 240 ml Output Total 1000 ml Balance -270 ml 240 ml Intake Oral 730 ml 240 ml Hemodialysis 1000 ml # Voids 2 1 # Bowel Movements 1 0 Vital Signs Date Time Temp Pulse Resp B/P Pulse Ox O2 Delivery O2 Flow Rate FiO2 05/29/16 02:00 74 05/29/16 00:00 98.7 78 14 95/54 97 05/29/16 00:00 78 05/28/16 22:00 88 05/28/16 20:00 90 05/28/16 20:00 Nasal Cannula 2.00 98 05/28/16 20:00 98.4 90 23 95/54 98 05/28/16 18:00 93 05/28/16 16:00 98.1 93 15 96/51 97 05/28/16 16:00 93 05/28/16 14:00 90 05/28/16 12:00 92 05/28/16 12:00 98.3 92 22 112/59 94 05/28/16 10:00 92 05/28/16 08:00 98.6 60 12 156/75 93 05/28/16 08:00 84 -: 05/28/16 0350 05/29/16 0416 Physical Exam General Appearance: Well Developed, Well Nourished, No Acute Distress, Comfortable, Sleeping Eyes Eye Exam: Pupils Equal, Pupils Reactive Throat Throat Exam: Oral Mucosa [place] & Moist Pulmonary Resp Exam: Clear Bilaterally, Breath Sounds Equal, No Distress Cardiology CV Exam: Normal Sinus Rhythm, Murmur Gastrointestinal/Abdomen GI Exam: Soft, Non-Tender, Bowel Sounds Present Musculoskeletal MS Exam: Joints Intact, Normal Tone Integumentary Skin Exam: Clear, Warm, Dry, Intact Extremeties Extremities Exam: Pedal Pulses Palpable, Trace Edema Neurologic Neuro Exam: Alert, Awake, Oriented Psychiatric Psych Exam: Appropriate Responses Assessment/Plan Discussed Condition With: Patient Assessment Summary: Anemia of CKD, Hypertension, End Stage Renal Disease Problem List: (1) ESRD (end stage renal disease) Plan: We will continue HD TTS Continue Renvela for metabolic bone disorder, follow up phosphorus periodically. Level is elevated but improving Renal diet with no protein restriction (2) Femoral neck fracture Plan: ortho following s/p left hip hemiarthroplasty 05/22 (3) Murmur Plan: Echocardiogram revealed critical , endocarditis was ruled out he will need eventual valve replacement CV surgery had recommended outpatient follow up spontaneously went in to SVT overnight 05/27, later converted to NSR , off Cardizem off neosynepherine may require heart cath this admission (4) Hypertension Plan: marginally hypotensive , he is off pressors given albumin during dialysis (5) Anemia Plan: worsening anemia continue epogen with HD check iron profile (6) Vomiting Plan: GI has signed off ileus resolved tolerating diet Problem Qualifiers (1) Femoral neck fracture: Qualified Code: S72.002A - Closed fracture of neck of left femur, initial encounter (2) Hypertension: Qualified Code: I10 - Essential hypertension Felix Andersen MD May 29, 2016 07:33
[2016-05-29] MEDS: POLYETHYLENE GLYCOL 17 GM PKG PO SCH (09:00)
[2016-05-29] MEDS: LACTULOSE SYRUP 20 GM/30 ML CUP PO SCH (09:00)
[2016-05-29] MEDS: ZIPRASIDONE HCL 80 MG CAP PO SCH ×2 (09:54→20:37)
[2016-05-29] MEDS: ZIPRASIDONE HCL 20 MG CAP PO SCH ×2 (09:55→20:37)
[2016-05-29] MEDS: DOCUSATE SODIUM 100 MG CAP PO SCH ×2 (09:55→20:37)
[2016-05-29] MEDS: SENNOSIDES 8.6 MG TAB PO SCH (09:55)
[2016-05-29] MEDS: DIVALPROEX SODIUM E.R. 500 MG TAB PO SCH ×2 (09:55→20:45)
[2016-05-29] MEDS: MULTIVITAMINS/MINERALS THERAPEUTIC TAB PO SCH ×2 (09:55→20:37)
[2016-05-29] MEDS: SODIUM CHLORIDE 0.9% FLUSH 10 ML FLUSH IV FLUSH SCH ×2 (10:05→20:46)
[2016-05-29] MEDS: METOPROLOL TARTRATE 25 MG TAB PO SCH ×2 (10:05→20:38)
[2016-05-29] MEDS: SEVELAMER CARBONATE 800 MG TAB PO SCH ×3 (10:05→17:32)
[2016-05-29] MEDS: PANTOPRAZOLE SODIUM 40 MG VIAL IV PUSH SCH ×2 (12:20→22:19)
--- NOTE | 2016-05-29 16:33 | HHI.HCPN ---
Reason for visit a. To assist with evaluation and management of symptoms including: debility , pain b. To assist medical decision maker(s) with: better understanding of current medical conditions; weighing benefits/burdens of medical treatment options; making medical treatment decisions. . Subjective/Interval History Mr Herron was seen and assessed in room 1309 s/p LEFT hip bipolar hemiarthroplasty. Patient went into SVT on 05/26/16, a Halicat was called and t he patient was transferred to ICU. Heart rate in the 150s, BP 80s/50s, patient reporting chest pain. Tachyarrhythmia has now resolved, patient will be transferred to floor. Dr. Santana is following. CXR on 05/27/15 showing minimally enlarged heart and mild interstitial edema. Hemodynamically stable. 04/27/16 Lab work: WBC 10.5, hemoglobin 7.8, hematocrit 23.2, platelets 327, neutrophils 80.2% BNP elevated today at 1661 . Advance Directives Living Will: Copy in medical record Health Care Surrogate: Copy in medical record Durable Power of Senior Research Manager: Copy in medical record Advance Directive Specifics Date completed: The patient has DURABLE POWER OF SCRUM COACH for healthcare documents and a living will dated 01/27/2008 scanned into the electronic medical record. There is a separate designation of healthcare surrogate document dated 2016 that is in the paper chart. . Health Care Surrogate(s): The DURABLE POWER OF SCRUM COACH for healthcare documents from 2007 with the primary is the patient's fatherPapa Herron (now ). The alternate is the patient's sisterSherri Sin. The health care surrogate designation document dated 03/25/2016 with the primary surrogate as the patient's brother Fernando Herron. The alternate is the patient's sister Sherri Sin. . Documented care wishes: The patient has completed a standard [place] living will. It indicates that if he is ever found to have a terminal or end-stage condition or is in a persistent vegetative state, he would not want life prolonging procedures. . Objective Vital Signs Date Time Temp Pulse Resp B/P Pulse Ox O2 Delivery O2 Flow Rate FiO2 05/29/16 08:00 75 05/29/16 07:00 Nasal Cannula 2.00 98 05/29/16 06:00 74 05/29/16 04:00 77 05/29/16 04:00 97.5 77 16 111/58 97 05/29/16 02:00 74 05/29/16 00:00 98.7 78 14 95/54 97 05/29/16 00:00 78 05/28/16 22:00 88 05/28/16 20:00 98 Nasal Cannula 2.00 05/28/16 20:00 90 05/28/16 20:00 Nasal Cannula 2.00 98 05/28/16 20:00 98.4 90 23 95/54 98 05/28/16 18:00 93 . Physical Exam CONSTITUTIONAL/GENERAL: This is an adequately nourished patient male patient in NAD TUBES/LINES/DRAINS: Dialysis fistula left upper extremity; peripheral IV; SCDs SKIN: No jaundice. There are numerous erythematous lesions on both upper extremities. Skin temperature appropriate. Not diaphoretic. HEAD: Atraumatic. Normocephalic. EYES: PERRLA. Extraocular motions intact. No scleral icterus. No injection or drainage. Fundi not examined. ENT: Hearing grossly normal. Nose without bleeding or purulent drainage. NECK: Trachea midline. CARDIOVASCULAR: Regular rate and rhythm. No JVD. Peripheral pulses symmetric. RESPIRATORY/CHEST: Symmetric, unlabored respirations. Clear to auscultation. Breath sounds equal bilaterally. GASTROINTESTINAL: Abdomen slightly distended, tender to palpation. Normoactive bowel sounds x 4. GENITOURINARY: Without palpable bladder distension. MUSCULOSKELETAL: Extremities without clubbing, cyanosis, or edema. Arteriovenous shunt for dialysis and left upper extremity. LYMPHATICS: No palpable cervical or supraclavicular adenopathy. NEUROLOGICAL: Awake and alert. Answers questions, following command. PSYCHIATRIC: Flat affect. . Diagnostic Tests Laboratory Laboratory Tests Test 05/26/16 05/27/16 05/28/16 05/29/16 16:10 03:51 03:50 04:16 Troponin I 0.20 NG/ML 0.17 NG/ML (0.02-0.05) (0.02-0.05) White Blood Count 12.6 TH/MM3 10.5 TH/MM3 (4.0-11.0) (4.0-11.0) Red Blood Count 2.75 MIL/MM3 2.63 MIL/MM3 (4.50-5.90) (4.50-5.90) Hemoglobin 8.0 GM/DL 7.8 GM/DL (13.0-17.0) (13.0-17.0) Hematocrit 24.5 % 23.2 % (39.0-51.0) (39.0-51.0) Mean Corpuscular Volume 89.1 FL 88.2 FL (80.0-100.0) (80.0-100.0) Mean Corpuscular Hemoglobin 29.1 PG 29.6 PG (27.0-34.0) (27.0-34.0) Mean Corpuscular Hemoglobin 32.7 % 33.5 % Concent (32.0-36.0) (32.0-36.0) Red Cell Distribution Width 16.6 % 16.5 % (11.6-17.2) (11.6-17.2) Platelet Count 391 TH/MM3 327 TH/MM3 (150-450) (150-450) Mean Platelet Volume 8.1 FL 8.6 FL (7.0-11.0) (7.0-11.0) Neutrophils (%) (Auto) 78.0 % 80.2 % (16.0-70.0) (16.0-70.0) Lymphocytes (%) (Auto) 8.4 % 6.6 % (9.0-44.0) (9.0-44.0) Monocytes (%) (Auto) 10.6 % 10.9 % (0.0-8.0) (0.0-8.0) Eosinophils (%) (Auto) 2.1 % (0.0-4.0) 1.7 % (0.0-4.0) Basophils (%) (Auto) 0.9 % (0.0-2.0) 0.6 % (0.0-2.0) Neutrophils # (Auto) 9.8 TH/MM3 8.4 TH/MM3 (1.8-7.7) (1.8-7.7) Lymphocytes # (Auto) 1.1 TH/MM3 0.7 TH/MM3 (1.0-4.8) (1.0-4.8) Monocytes # (Auto) 1.3 TH/MM3 1.1 TH/MM3 (0-0.9) (0-0.9) Eosinophils # (Auto) 0.3 TH/MM3 0.2 TH/MM3 (0-0.4) (0-0.4) Basophils # (Auto) 0.1 TH/MM3 0.1 TH/MM3 (0-0.2) (0-0.2) CBC Comment DIFF FINAL DIFF FINAL Differential Comment Activated Partial 58.4 SEC Thromboplast Time (24.3-30.1) Sodium Level 134 MEQ/L 133 MEQ/L 138 MEQ/L (136-145) (136-145) (136-145) Potassium Level 4.3 MEQ/L 4.5 MEQ/L 4.1 MEQ/L (3.5-5.1) (3.5-5.1) (3.5-5.1) Chloride Level 95 MEQ/L 94 MEQ/L 98 MEQ/L (98-107) (98-107) (98-107) Carbon Dioxide Level 28.6 MEQ/L 26.1 MEQ/L 29.4 MEQ/L (21.0-32.0) (21.0-32.0) (21.0-32.0) Anion Gap 10 MEQ/L (5-15) 13 MEQ/L (5-15) 11 MEQ/L (5-15) Blood Urea Nitrogen 77 MG/DL (7-18) 100 MG/DL 56 MG/DL (7-18) (7-18) Creatinine 6.58 MG/DL 7.95 MG/DL 5.21 MG/DL (0.60-1.30) (0.60-1.30) (0.60-1.30) Estimat Glomerular Filtration 9 ML/MIN (>89) 7 ML/MIN (>89) 11 ML/MIN (>89) Rate Random Glucose 179 MG/DL 200 MG/DL 192 MG/DL (74-106) (74-106) (74-106) Calcium Level 9.5 MG/DL 9.5 MG/DL 10.4 MG/DL (8.5-10.1) (8.5-10.1) (8.5-10.1) Phosphorus Level 7.9 MG/DL 7.2 MG/DL (2.5-4.9) (2.5-4.9) Magnesium Level 2.1 MG/DL 2.1 MG/DL (1.5-2.5) (1.5-2.5) Total Bilirubin 0.3 MG/DL (0.2-1.0) Aspartate Amino Transf 25 U/L (15-37) (AST/SGOT) Alanine Aminotransferase 7 U/L (12-78) (ALT/SGPT) Alkaline Phosphatase 122 U/L (45-117) Total Creatine Kinase 36 U/L (39-308) Total Protein 5.7 GM/DL (6.4-8.2) Albumin 1.8 GM/DL (3.4-5.0) Digoxin Level 1.7 NG/ML (0.8-2.0) B-Type Natriuretic Peptide 1661 PG/ML (0-100) . Result Diagram: 05/28/16 0350 05/29/16 0416 Procedures * Hemodialysis * LEFT hip bipolar hemiarthroplasty. . Assessment and Plan Disease Oriented Problem List: (1) Femoral neck fracture Comment: Left side.. (2) ESRD (end stage renal disease) Comment: Has been receiving hemodialysis approximately 6-7 years. . (3) Dependent on hemodialysis (4) Aortic valve stenosis, critical (5) Mitral valve stenosis (6) Mitral valve regurgitation (7) Esophagitis, [place] grade B (8) Barretts esophagus Comment: Underwent EGD on 05/10/16. No cancer cells seen on biopsy. . (9) Anemia (10) DM (diabetes mellitus) (11) Hyperlipidemia (12) Schizophrenia Comment: History going back to the 1980s. History of multiple hospitalizations. Symptoms appear well-controlled at this time. . 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 Also complains of some abdominal distention, mid abdominal discomfort with associated nausea/vomiting. No other known pain syndromes. Current orders for morphine 5 mg IV push q3 hours PRN for pain >7; Percocet (5/325/tab) 1-2 tablets PO q4 hours PRN for pain. 24 hour total: Morphine 5 mg 1; Percocet 2 tablets 1. Patient does have a history of occasional chest pains. However, these most often happen at rest and do not radiate. PRN Nitrostat is available for chest pain but has not been utilized. . (2) Debility Pertinent Non-Medical Issues Psychosocial: Patient was born in [facility]. He moved to [place] when he was 6 years old The patient completed high school and attended [employer] on a tennis scholarship. He received a business degree. 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 He patient was never . He has no children. The patient's mother when he was quite young. The patient's father in December 2015 for myocardial infarction. The patient has a brotherTommy she lives locally and teaches tennis. He also has a sister who lives in [place]. The patient has a history of schizophrenia dating back to the 1980s. He had multiple psychiatric hospitalizations. He has been a resident at [facility] since 02/10/2009. Spiritual: The patient identifies himself as a [employer]. He does not belong to any particular local bahai. He would appreciate visits from the [facility] protozoology teacher. Legal: The DURABLE POWER OF SCRUM COACH for healthcare documents from 2007 with the primary is the patient's fatherPapa Herron (now ). The alternate is the patient's sisterSherri Sin. The health care surrogate designation document dated 03/25/2016 with the primary surrogate as the patient' s Amy Herron. The alternate is the patient's sister Sherri Sin. Ethical issues impacting care: No known issues impacting care at this time. . Important Contacts * Sherri Sin (sister and healthcare power of defense attorney) H: [phone] C : [phone] * Fernando Herron (brother and healthcare surrogate) [phone] . Prognosis Patient has underlying schizophrenia, ES renal disease on hemodialysis, and Reza's esophagus. He has been a nursing facility resident for over 7 years due to his mental health issues. He has fractured his hip and pre-op w/u has revealed critical aortic stenosis. In addition to the risks of surgery, his sister reports that he has a history of not being very compliant with physical therapy. We will . Code Status: Full Code Plan == Code Status: FULL CODE == Decision Making: Patient appears to have a reasonably good understanding of his medical condition. He is able to tell me about his fracture and is able to tell me that he has a heart problem that makes surgery more difficult. He admits to feeling overwhelmed and wants decision making to be shared. He is fine with either his sister or his brother helping him. They are each listed as surrogates on separate documents in his medical record. I have personally spoken with the patient's sister -- Sherri Sin -- who is happy to serve in this capacity. I have also spoken with brother -- Fernando- who also agrees to serve. The two speak frequently and our medical team can speak to either one for guidance. Per patient's preference, I would recommend "shared decision making " including patient and at least one of the people below for all major decisions * Sherri Sin (POA for health care / sister) H: [phone] C: * Fernando Herron (brother/ health care surrogate) [phone] == Symptom managementpain: Patient reporting left hip/trochanter pain which is exacerbated by movement. Also complains of some abdominal distention, mid abdominal discomfort with associated nausea/vomiting. No other known pain syndromes. Current orders for morphine 5 mg IV push q3 hours PRN for pain >7; Percocet (5/325/tab) 1-2 tablets PO q4 hours PRN for pain. Pain medications are being sparingly used. Patient does have a history of occasional chest pains. However, these most often happen at rest and do not radiate. PRN Nitrostat is available for chest pain but has not been utilized. Palliative Care will monitor PRN requirements and make recommendations as indicated. == Palliative care will continue to follow to assist with symptom management and to further clarify goals of care as the clinical course evolves . Attestation To help prompt me to consider important information that might be impacting today's encounter and assessment, information from prior notes written by myself or my colleagues may have been "brought forward" into today's note. My signature on this note, however, is an attestation that I personally performed the exam, history, and/or decision-making noted today, and, unless otherwise indicated, the interactions with patient, family, and staff as well as the review of records all occurred today. I also attest that the listed assessment and stated plan reflect my best clinical judgment today based on the combination of historical information, prior notes, and today's exam/ interactions. When time spent is documented, it refers only to time spent today by the signer, or if indicated, combined time spent today by collaborating physician/nurse practitioner. . Charlee Finch May 29, 2016 16:33
--- NOTE | 2016-05-29 17:10 | HHI.PR ---
Subjective Remarks Follow up for left femoral head fracture, severe aortic stenosis. Patient is currently doing well. Denies any chest pain, shortness of breath, fever or chills. Objective Vitals Vital Signs Date Time Temp Pulse Resp B/P Pulse Ox O2 Delivery O2 Flow Rate FiO2 05/29/16 08:00 75 05/29/16 07:00 Nasal Cannula 2.00 98 05/29/16 06:00 74 05/29/16 04:00 77 05/29/16 04:00 97.5 77 16 111/58 97 05/29/16 02:00 74 05/29/16 00:00 98.7 78 14 95/54 97 05/29/16 00:00 78 05/28/16 22:00 88 05/28/16 20:00 98 Nasal Cannula 2.00 05/28/16 20:00 90 05/28/16 20:00 Nasal Cannula 2.00 98 05/28/16 20:00 98.4 90 23 95/54 98 05/28/16 18:00 93 I/O 05/28/16 05/28/16 05/28/16 05/29/16 05/29/16 05/29/16 07:00 15:00 23:00 07:00 15:00 23:00 Intake Total 240 ml 730 ml 240 ml 100 ml Output Total 1000 ml Balance 240 ml -270 ml 240 ml 100 ml Intake Oral 240 ml 730 ml 240 ml 100 ml IV Total 0 ml Hemodialysis 1000 ml # Voids 1 2 1 1 # Bowel Movements 2 1 0 0 Result Diagram: 05/28/16 0350 05/29/16 0416 Objective Remarks GENERAL: Alert, NAD. SKIN: Warm and dry. HEAD: Normocephalic. EYES: No scleral icterus. No injection or drainage. NECK: Supple, trachea midline. No JVD or lymphadenopathy. CARDIOVASCULAR: Regular rate and rhythm without gallops, or rubs. 3/6 systolic murmur at the right 2nd IC. A diastolic murmur best heard at the apex. RESPIRATORY: Breath sounds equal bilaterally. No accessory muscle use. GASTROINTESTINAL: Abdomen soft, non-tender, nondistended. MUSCULOSKELETAL: No cyanosis, or edema. BACK: Nontender without obvious deformity. No CVA tenderness. Procedures Echo 05/07/2016 - Left ventricle: The cavity size was normal. Wall thickness was normal. Systolic function was vigorous. The estimated ejection fraction was in the range of 65% to 70%. Wall motion was normal; there were no regional wall motion abnormalities. - Aortic valve: Transvalvular velocity was increased. There was critical stenosis. Trace regurgitation. Valve area: 0.44cm^2(VTI). Valve area: 0.51cm^2 (Vmax). - Mitral valve: Moderately to severely calcified annulus. There was a possible, medium-sized, mobile vegetation on the atrial aspect of the posterior aspect of the annulus. Transvalvular velocity was increased. The findings are consistent with moderate stenosis. Mild regurgitation. - Left atrium: The atrium was mildly dilated. - Tricuspid valve: Mild regurgitation. - Pulmonary arteries: Systolic pressure was moderately to severely increased. PA peak pressure: 55mm Hg (S). 05/08/2016 DAISY - Left ventricle: The cavity size was normal. Wall thickness was increased in a pattern of mild LVH. Systolic function was normal. The estimated ejection fraction was in the range of 55% to 60%. Wall motion was normal; there were no regional wall motion abnormalities. - Aortic valve: No evidence of vegetation. Transvalvular velocity was increased. There was critical stenosis. Trace regurgitation. - Aorta: There was ulcerated atheromatous plaque in the mid descending aorta, with mobile associated thrombus. - Mitral valve: Moderately to severely calcified annulus. Leaflet separation was mildly reduced. Flail motion involving the posterior leaflet due to rupture of one or more chords. Cannot exclude vegetation although the appearance is more consistent with sclerotic valve with flail posterior leafletinvolving thesubvalvular mitral apparatus. Transvalvular velocity was increased. The findings are consistent with mild to moderate stenosis. Moderate to severe regurgitation. - Left atrium: The atrium was mildly dilated. No evidence of thrombus in the atrial cavity or appendage. - Right atrium: No evidence of thrombus in the atrial cavity or appendage. - Tricuspid valve: No evidence of vegetation. - Pulmonic valve: No evidence of vegetation. 05/22/2016 Left hip hemiarthroplasty 05/10/2016 EGD with biopsy IMPRESSIONS: 1. There was LA Class B esophagitis noted; multiple biopsies were performed 2. There was erythematous gastritis in the gastric antrum 3. Duodenal inflammation was found in the duodenal bulb 4. Retroflexed views revealed no abnormalities A/P Problem List: (1) Femoral neck fracture ICD Code: S72.009A Status: Acute (2) Fall ICD Code: W19.XXXA Status: Acute (3) Schizophrenia ICD Code: F20.9 Status: Chronic (4) DM (diabetes mellitus) ICD Code: E11.9 Status: Chronic (5) Anemia ICD Code: D64.9 Status: Chronic (6) End stage renal failure on dialysis ICD Code: N18.6 Status: Chronic (7) Aortic valve stenosis, critical ICD Code: I35.0 Status: Acute (8) Mitral valve stenosis ICD Code: I05.0 Status: Acute (9) Mitral valve regurgitation ICD Code: I34.0 Status: Acute (10) Esophagitis, [place] grade B ICD Code: K20.8 Status: Acute (11) Gastritis ICD Code: K29.70 Status: Acute (12) Dysphagia ICD Code: R13.10 Status: Acute Assessment and Plan Mr. Herron is a 55 year old male with a history of ESRD, Diabetes mellitus who was admitted on 05/07/2016 following a mechanical fall and sustained left femoral neck fracture. Orthopedic surgery requested a cardiology clearance. Patient has a baseline right bundle branch block. Cardiology workup included a stress test back in January 2016 which revealed mild hypokinesis changes in the anterior lateral wall as moderate risk. Echocardiogram 05/07 revealed EF of 65-70%. No regional wall motion abnormality. Severe critical aortic stenosis, left atrial dilatation. BLAYNE 55 mmHg. Mitral valve with mobile annulus. Rule out vegetation. Follow-up DAISY revealed mitral severe crest calcification with a flail posterior leaflet. Cardiothoracic surgery/Dr. Moy did see the patient recommended outpatient follow-up. Each was eventually cleared for surgery which was performed 05/22 with a left hip hemiarthroplasty. Overnight on 05/26/2016, Patient was noted to be in a narrow complex tachycardia. Received 1 L normal saline bolus on the floor. Was transferred as a Halicat to room 1309. Monitor again revealed narrow complex tachycardia. Patient received adenosine 6 mg revealed an atrial flutter which converted back to narrow complex tachycardia. Patient received 1 L normal saline bolus here with resolution of hypotension and started on a Cardizem drip with Maximo-Synephrine as necessary maintain proper perfusion. A central line is currently placed in the right subclavian. By the next day, 05/27/2016, patient converted back to first- degree AV block yesterday after 2 hours in ICU. Remains on Maximo-Synephrine at 80 mcg/m. Patient's care was transferred to hospitalist service on 05/29/2016. Left femoral neck fracture - s/p Left hip hemiarthroplasty Bipolar disorder Schizophrenia History of seizures Currently in Depakote 500 mg twice a day/Prozac 20 mg Geodon 100 milligrams twice a day (80 milligrams twice a day home dosage) Evaluated by psychiatry Dr. Cameron. Not suicidal. Recommended Haldol 2 milligrams every 8 hours maximum 10 mg daily Tylenol for fever Percocet/morphine for pain management SVT - appears A flutter Severe aortic stenosis First-degree AV block Right bundle-branch block At anterior fascicular block Mitral valve with severe calcification/flail posterior leaflet Hypertension Stress test 02/08 revealed moderate hypokinesis in the anterior lateral wall. Moderate risk. 2-D echocardiogram 05/07 revealed EF 65-70%. No regional wall motion abnormality. Critical aortic stenosis. Moderate MS with mobile mass. Left atrium dilated. BLAYNE 55 mmHg. 05/08 revealed EF D5 to 60%. No regional wall motion abnormality. Critical aortic stenosis. Severe calcification mitral valve. [address] Moy/CT surgery. Recommended cardiac catheterization/undergo orthopedic surgery and follow-up as outpatient Today, patient was on SVT on floor. In the intensive care unit, he was given 6 mg IV of adenosine and appeared to be a flutter on telemetry. Start Maximo-Synephrine drip to maintain adequate MAP patient with aortic stenosis. Currently at 60 mg a minute Started beta sal and digoxin. Will avoid calcium channel blockers for rate control to avoid afterload reduction. Digoxin discontinued after two 0.25 mg boluses provided Initial troponin 0.07. Potassium and magnesium within normal limits. TSH 0.7. Primary team has reconsulted cardiology. On metoprolol 12.5 mg by mouth twice a day. 1st degree block noted. Gastroesophageal reflux disease LA class B esophagitis Gastritis Duodenitis History of Reza's esophagus Dysphasia Hepatitis C EGD 05/10 for dysphagia revealed. There was LA Class B esophagitis noted; erythematous gastritis in the gastric antrum and Duodenal inflammation was found in the duodenal bulb Biopsies revealed chronic inflammation dysplasia Patient is on Zantac 75 mg by mouth daily at home for gastritis. On Protonix 40 mg IV daily for gastroesophageal reflux disease. Colace twice a day/Senokot/MiraLAX/lactulose daily for bowel regimen Currently on soft renal diet Diabetes mellitus Plan sliding-scale insulin with Accu-Cheks to maintain euglycemia. On sliding scale insulin at fpc Renal: End-stage renal disease on hemodialysis Friday//Friday Secondary hyperparathyroidism Left AV fistula positive thrill. Heme: Anemia of chronic kidney disease receive epogen with hemodialysis Leukocytosis Hemoglobin stable. Full code. Lovenox. Problem Qualifiers (1) Femoral neck fracture: Qualified Code: S72.002A - Closed fracture of neck of left femur, initial encounter (2) Fall: Qualified Code: W19.XXXA - Fall, initial encounter Demetrice Sullivan DO May 29, 2016 5:10 pm Access -Right subclavian CVL placed in OR day #6 Prophylaxis - GI -Protonix - DVT - SCD/Lovenox Problem Qualifiers (1) Femoral neck fracture: Qualified Code: S72.002A - Closed fracture of neck of left femur, initial encounter (2) Fall: Qualified Code: W19.XXXA - Fall, initial encounter Demetrice Sullivan DO May 29, 2016 17:10
[2016-05-29] MEDS: FLUoxetine HCL 20 MG CAP PO SCH (20:38)
[2016-05-30] VITALS (10 sets, daily range): BP systolic 92–117; BP diastolic 58–65; PULSE 74–112; RESP 15–27; TEMP 98–99.4; O2SAT 92–98
[2016-05-30] MEDS: METOCLOPRAMIDE HCL 10 MG/2 ML VIAL IV PUSH SCH ×3 (07:07→22:16)
[2016-05-30] MEDS: INSULIN ASPART SUPPLEMENTAL SCALE SQ SCH ×5 (07:08→21:00)
[2016-05-30] MEDS: SEVELAMER CARBONATE 800 MG TAB PO SCH ×3 (08:37→18:12)
[2016-05-30] MEDS: ZIPRASIDONE HCL 80 MG CAP PO SCH ×2 (08:37→23:15)
[2016-05-30] MEDS: ZIPRASIDONE HCL 20 MG CAP PO SCH ×2 (08:37→23:15)
[2016-05-30] MEDS: DIVALPROEX SODIUM E.R. 500 MG TAB PO SCH ×2 (08:38→22:18)
--- NOTE | 2016-05-30 08:45 | HHI.NPPN ---
Subjective General Problems: Anemia, Hypertension Renal Failure: Chronic, End Stage Renal Disease Interval History He was seen during dialysis today. UF goal will be 3 liters. BFR 400 ml/min. Notes were reviewed. Review of Systems General Constitutional: Fatigue Gastrointestinal Gastrointestinal: Nausea & Vomiting Musculoskeletal MS: Pain/Stiffness MS Remarks some numbness left leg, motor impaired secondary to pain Objective Data Data 05/29/16 05/30/16 19:00 07:00 Intake Total 1500 ml 1040 ml Balance 1500 ml 1040 ml Intake Oral 1500 ml 1040 ml # Voids 2 3 # Bowel Movements 1 1 Vital Signs Date Time Temp Pulse Resp B/P Pulse Ox O2 Delivery O2 Flow Rate FiO2 05/30/16 06:00 76 05/30/16 04:00 74 05/30/16 04:00 98.0 74 15 99/58 98 05/30/16 02:00 88 05/30/16 00:00 99.0 86 27 104/62 96 05/30/16 00:00 86 05/29/16 22:00 90 05/29/16 20:00 Nasal Cannula 2.00 100 05/29/16 20:00 90 05/29/16 20:00 98.1 90 19 90/51 96 05/29/16 18:00 90 05/29/16 16:00 85 05/29/16 16:00 98.0 85 20 105/55 97 05/29/16 14:00 86 05/29/16 12:00 98.5 80 24 105/56 98 05/29/16 12:00 80 05/29/16 10:00 78 -: 05/28/16 0350 05/29/16 0416 Physical Exam General Appearance: Well Developed, Well Nourished, No Acute Distress, Comfortable, Sleeping Eyes Eye Exam: Pupils Equal, Pupils Reactive Throat Throat Exam: Oral Mucosa [place] & Moist Pulmonary Resp Exam: Clear Bilaterally, Breath Sounds Equal, No Distress Cardiology CV Exam: Normal Sinus Rhythm, Murmur Gastrointestinal/Abdomen GI Exam: Soft, Non-Tender, Bowel Sounds Present Musculoskeletal MS Exam: Joints Intact, Normal Tone Integumentary Skin Exam: Clear, Warm, Dry, Intact Extremeties Extremities Exam: Pedal Pulses Palpable, Trace Edema Neurologic Neuro Exam: Alert, Awake, Oriented Psychiatric Psych Exam: Appropriate Responses Assessment/Plan Discussed Condition With: Patient Assessment Summary: Anemia of CKD, Hypertension, End Stage Renal Disease Problem List: (1) ESRD (end stage renal disease) Plan: We will continue HD TTS Continue Renvela for metabolic bone disorder, follow up phosphorus periodically. Level is elevated but improving Renal diet with no protein restriction (2) Femoral neck fracture Plan: ortho following s/p left hip hemiarthroplasty 05/22 (3) Murmur Plan: Echocardiogram revealed critical , endocarditis was ruled out he will need eventual valve replacement CV surgery had recommended outpatient follow up spontaneously went in to SVT overnight 05/27, later converted to NSR , off Cardizem off neosynepherine may require heart cath this admission (4) Hypertension Plan: marginally hypotensive , he is off pressors given albumin during dialysis (5) Anemia Plan: worsening anemia continue epogen with HD check iron profile (6) Vomiting Plan: GI has signed off ileus resolved tolerating diet Problem Qualifiers (1) Femoral neck fracture: Qualified Code: S72.002A - Closed fracture of neck of left femur, initial encounter (2) Hypertension: Qualified Code: I10 - Essential hypertension Felix Andersen MD May 30, 2016 08:45
[2016-05-30] MEDS: POLYETHYLENE GLYCOL 17 GM PKG PO SCH (09:00)
[2016-05-30] MEDS: SODIUM CHLORIDE 0.9% FLUSH 10 ML FLUSH IV FLUSH SCH ×2 (09:00→22:19)
[2016-05-30] MEDS: SENNOSIDES 8.6 MG TAB PO SCH (09:00)
[2016-05-30] MEDS: LACTULOSE SYRUP 20 GM/30 ML CUP PO SCH (09:00)
[2016-05-30] MEDS: DOCUSATE SODIUM 100 MG CAP PO SCH ×2 (09:00→21:00)
[2016-05-30] MEDS: METOPROLOL TARTRATE 25 MG TAB PO SCH ×2 (09:00→22:17)
[2016-05-30] MEDS: MULTIVITAMINS/MINERALS THERAPEUTIC TAB PO SCH ×2 (09:00→21:00)
[2016-05-30] MEDS: ALBUMIN HUMAN 25% 25 GM/100 ML BAGP IV PRN ×2 (09:28→11:21)
[2016-05-30] MEDS: EPOETIN ALFA 10,000 UNITS/ML VIAL IV PRN (10:08)
[2016-05-30] MEDS: PANTOPRAZOLE SODIUM 40 MG VIAL IV PUSH SCH ×2 (11:00→22:16)
[2016-05-30 13:36] LABS: AUTOMATED NEUTROPHIL # 5.8 TH/MM3 (1.8-7.7); BASOPHIL % 0.6 % (0.0-2.0); EOSINOPHIL # 0.2 TH/MM3 (0-0.4); EOSINOPHIL % 2.8 % (0.0-4.0); HEMATOCRIT 22.3 % (39.0-51.0); HEMO FLAGS DIFF FINAL; LYMPH % 10.6 % (9.0-44.0); LYMPHOCYTE # 0.8 TH/MM3 (1.0-4.8); MEAN CORPUSCULAR HEMOGLOBIN 29.5 PG (27.0-34.0); MEAN CORPUSCULAR HGB CONC 33.5 % (32.0-36.0); MONO % 11.8 % (0.0-8.0); NEUT % 74.2 % (16.0-70.0); PLATELET COUNT 291 TH/MM3 (150-450); RED BLOOD COUNT 2.54 MIL/MM3 (4.50-5.90); RED CELL DISTRIBUTION WIDTH 16.4 % (11.6-17.2); WHITE BLOOD COUNT 7.9 TH/MM3 (4.0-11.0)
[2016-05-30 14:00] LABS: BICARBONATE 32.8 MEQ/L (21.0-32.0); POTASSIUM 3.7 MEQ/L (3.5-5.1)
--- NOTE | 2016-05-30 18:50 | HHI.HCPN ---
Spoke with patient's sister (Sherri) via telephone, she was expressing frustration that her brother has not yet been discharge to a SNF or rehabilitation. An update was provided on the patient's clinical condition, patient was transferred from ICU to the floor earlier today. Sherri is concerned that the more time that passes before he begins rehabilitation, the more difficult it will be for her brother to regain his previous level of functioning. 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 Discussed with patient's nurse and Dr. Sullivan. Dr. Sullivan indicated the patient will likely be discharged in the upcoming days after being cleared by cardiology. Follow up phone was placed to patient's sister later in the day to provide an update on the patient's discharge planning. . Charlee Finch May 30, 2016 18:49
[2016-05-30] MEDS: FLUoxetine HCL 20 MG CAP PO SCH (22:18)
--- NOTE | 2016-05-30 23:23 | HHI.PR ---
Subjective Remarks Follow up for left femoral neck fracture, aortic stenosis. Patient is doing well. No fever, chills. Continues to receive dialysis. Objective Vitals Vital Signs Date Time Temp Pulse Resp B/P Pulse Ox O2 Delivery O2 Flow Rate FiO2 05/30/16 20:02 99.4 108 18 117/65 92 05/30/16 16:00 98.4 74 15 100/62 96 05/30/16 15:07 93 05/30/16 08:00 77 05/30/16 08:00 98.4 77 15 92/65 96 05/30/16 07:00 Nasal Cannula 3.00 98 05/30/16 06:00 76 05/30/16 04:00 74 05/30/16 04:00 98.0 74 15 99/58 98 05/30/16 02:00 88 05/30/16 00:00 99.0 86 27 104/62 96 05/30/16 00:00 86 I/O 05/29/16 05/29/16 05/29/16 05/30/16 05/30/16 05/30/16 07:00 15:00 23:00 07:00 15:00 23:00 Intake Total 100 ml 1500 ml 680 ml 360 ml Output Total 3000 ml Balance 100 ml 1500 ml 680 ml 360 ml -3000 ml Intake Oral 100 ml 1500 ml 680 ml 360 ml Hemodialysis 3000 ml # Voids 1 2 1 2 # Bowel Movements 0 1 0 1 Result Diagram: 05/30/16 1313 05/30/16 1313 Objective Remarks GENERAL: Alert, NAD. SKIN: Warm and dry. HEAD: Normocephalic. EYES: No scleral icterus. No injection or drainage. NECK: Supple, trachea midline. No JVD or lymphadenopathy. CARDIOVASCULAR: Regular rate and rhythm without gallops, or rubs. 3/6 systolic murmur at the right 2nd IC. A diastolic murmur best heard at the apex. RESPIRATORY: Breath sounds equal bilaterally. No accessory muscle use. GASTROINTESTINAL: Abdomen soft, non-tender, nondistended. MUSCULOSKELETAL: No cyanosis, or edema. BACK: Nontender without obvious deformity. No CVA tenderness. Procedures Echo 05/07/2016 - Left ventricle: The cavity size was normal. Wall thickness was normal. Systolic function was vigorous. The estimated ejection fraction was in the range of 65% to 70%. Wall motion was normal; there were no regional wall motion abnormalities. - Aortic valve: Transvalvular velocity was increased. There was critical stenosis. Trace regurgitation. Valve area: 0.44cm^2(VTI). Valve area: 0.51cm^2 (Vmax). - Mitral valve: Moderately to severely calcified annulus. There was a possible, medium-sized, mobile vegetation on the atrial aspect of the posterior aspect of the annulus. Transvalvular velocity was increased. The findings are consistent with moderate stenosis. Mild regurgitation. - Left atrium: The atrium was mildly dilated. - Tricuspid valve: Mild regurgitation. - Pulmonary arteries: Systolic pressure was moderately to severely increased. PA peak pressure: 55mm Hg (S). 05/08/2016 DAISY - Left ventricle: The cavity size was normal. Wall thickness was increased in a pattern of mild LVH. Systolic function was normal. The estimated ejection fraction was in the range of 55% to 60%. Wall motion was normal; there were no regional wall motion abnormalities. - Aortic valve: No evidence of vegetation. Transvalvular velocity was increased. There was critical stenosis. Trace regurgitation. - Aorta: There was ulcerated atheromatous plaque in the mid descending aorta, with mobile associated thrombus. - Mitral valve: Moderately to severely calcified annulus. Leaflet separation was mildly reduced. Flail motion involving the posterior leaflet due to rupture of one or more chords. Cannot exclude vegetation although the appearance is more consistent with sclerotic valve with flail posterior leafletinvolving thesubvalvular mitral apparatus. Transvalvular velocity was increased. The findings are consistent with mild to moderate stenosis. Moderate to severe regurgitation. - Left atrium: The atrium was mildly dilated. No evidence of thrombus in the atrial cavity or appendage. - Right atrium: No evidence of thrombus in the atrial cavity or appendage. - Tricuspid valve: No evidence of vegetation. - Pulmonic valve: No evidence of vegetation. 05/22/2016 Left hip hemiarthroplasty 05/10/2016 EGD with biopsy IMPRESSIONS: 1. There was LA Class B esophagitis noted; multiple biopsies were performed 2. There was erythematous gastritis in the gastric antrum 3. Duodenal inflammation was found in the duodenal bulb 4. Retroflexed views revealed no abnormalities A/P Problem List: (1) Femoral neck fracture ICD Code: S72.009A Status: Acute (2) Fall ICD Code: W19.XXXA Status: Acute (3) Schizophrenia ICD Code: F20.9 Status: Chronic (4) DM (diabetes mellitus) ICD Code: E11.9 Status: Chronic (5) Anemia ICD Code: D64.9 Status: Chronic (6) End stage renal failure on dialysis ICD Code: N18.6 Status: Chronic (7) Aortic valve stenosis, critical ICD Code: I35.0 Status: Acute (8) Mitral valve stenosis ICD Code: I05.0 Status: Acute (9) Mitral valve regurgitation ICD Code: I34.0 Status: Acute (10) Esophagitis, [place] grade B ICD Code: K20.8 Status: Acute (11) Gastritis ICD Code: K29.70 Status: Acute (12) Dysphagia ICD Code: R13.10 Status: Acute Assessment and Plan Mr. Herron is a 55 year old male with a history of ESRD, Diabetes mellitus who was admitted on 05/07/2016 following a mechanical fall and sustained left femoral neck fracture. Orthopedic surgery requested a cardiology clearance. Patient has a baseline right bundle branch block. Cardiology workup included a stress test back in January 2016 which revealed mild hypokinesis changes in the anterior lateral wall as moderate risk. Echocardiogram 05/07 revealed EF of 65-70%. No regional wall motion abnormality. Severe critical aortic stenosis, left atrial dilatation. BLAYNE 55 mmHg. Mitral valve with mobile annulus. Rule out vegetation. Follow-up DAISY revealed mitral severe crest calcification with a flail posterior leaflet. Cardiothoracic surgery/Dr. Moy did see the patient recommended outpatient follow-up. Each was eventually cleared for surgery which was performed 05/22 with a left hip hemiarthroplasty. Overnight on 05/26/2016, Patient was noted to be in a narrow complex tachycardia. Received 1 L normal saline bolus on the floor. Was transferred as a [place] to room 1309. Monitor again revealed narrow complex tachycardia. Patient received adenosine 6 mg revealed an atrial flutter which converted back to narrow complex tachycardia. Patient received 1 L normal saline bolus here with resolution of hypotension and started on a Cardizem drip with Maximo-Synephrine as necessary maintain proper perfusion. A central line is currently placed in the right subclavian. By the next day, 05/27/2016, patient converted back to first- degree AV block yesterday after 2 hours in ICU. Remains on Maximo-Synephrine at 80 mcg/m. Patient's care was transferred to hospitalist service on 05/29/2016. Left femoral neck fracture - s/p Left hip hemiarthroplasty Bipolar disorder Schizophrenia History of seizures Currently in Depakote 500 mg twice a day/Prozac 20 mg Geodon 100 milligrams twice a day (80 milligrams twice a day home dosage) Evaluated by psychiatry Dr. Cameron. Not suicidal. Recommended Haldol 2 milligrams every 8 hours maximum 10 mg daily Tylenol for fever Percocet/morphine for pain management SVT - appears A flutter Severe aortic stenosis First-degree AV block Right bundle-branch block At anterior fascicular block Mitral valve with severe calcification/flail posterior leaflet Hypertension Stress test 02/08 revealed moderate hypokinesis in the anterior lateral wall. Moderate risk. 2-D echocardiogram 05/07 revealed EF 65-70%. No regional wall motion abnormality. Critical aortic stenosis. Moderate MS with mobile mass. Left atrium dilated. BLAYNE 55 mmHg. 05/08 revealed EF D5 to 60%. No regional wall motion abnormality. Critical aortic stenosis. Severe calcification mitral valve. [address] Moy/CT surgery. Recommended cardiac catheterization/undergo orthopedic surgery and follow-up as outpatient Today, patient was on SVT on floor. In the intensive care unit, he was given 6 mg IV of adenosine and appeared to be a flutter on telemetry. Start Maximo-Synephrine drip to maintain adequate MAP patient with aortic stenosis. Currently at 60 mg a minute Started beta sal and digoxin. Will avoid calcium channel blockers for rate control to avoid afterload reduction. Digoxin discontinued after two 0.25 mg boluses provided Initial troponin 0.07. Potassium and magnesium within normal limits. TSH 0.7. Primary team has reconsulted cardiology. On metoprolol 12.5 mg by mouth twice a day. 1st degree block noted. Per documentations, CT surgery requested a cardiac cath prior to consideration for aortic valve surgery. Gastroesophageal reflux disease LA class B esophagitis Gastritis Duodenitis History of Reza's esophagus Dysphasia Hepatitis C EGD 05/10 for dysphagia revealed. There was LA Class B esophagitis noted; erythematous gastritis in the gastric antrum and Duodenal inflammation was found in the duodenal bulb Biopsies revealed chronic inflammation dysplasia Patient is on Zantac 75 mg by mouth daily at home for gastritis. On Protonix 40 mg IV daily for gastroesophageal reflux disease. Colace twice a day/Senokot/MiraLAX/lactulose daily for bowel regimen Currently on soft renal diet Diabetes mellitus Plan sliding-scale insulin with Accu-Cheks to maintain euglycemia. On sliding scale insulin at half-way Renal: End-stage renal disease on hemodialysis Friday//Friday Secondary hyperparathyroidism Left AV fistula positive thrill. Heme: Anemia of chronic kidney disease receive epogen with hemodialysis Leukocytosis Hemoglobin stable. Full code. Lovenox. Problem Qualifiers (1) Femoral neck fracture: Qualified Code: S72.002A - Closed fracture of neck of left femur, initial encounter (2) Fall: Qualified Code: W19.XXXA - Fall, initial encounter Demetrice Sullivan DO May 30, 2016 11:23 pm Access -Right subclavian CVL placed in OR day #6 Prophylaxis - GI -Protonix - DVT - SCD/Lovenox Problem Qualifiers (1) Femoral neck fracture: Qualified Code: S72.002A - Closed fracture of neck of left femur, initial encounter (2) Fall: Qualified Code: W19.XXXA - Fall, initial encounter Demetrice Sullivan DO May 30, 2016 23:23
[2016-05-31] VITALS: BP 101/60; PULSE 91; RESP 16; TEMP 98.9; O2SAT 93
[2016-05-31 04:10] VITALS: BP 95/57; PULSE 90; RESP 16; TEMP 98.2; O2SAT 94
[2016-05-31] MEDS: INSULIN ASPART SUPPLEMENTAL SCALE SQ SCH ×4 (06:38→21:00)
[2016-05-31] MEDS: METOCLOPRAMIDE HCL 10 MG/2 ML VIAL IV PUSH SCH ×3 (06:38→22:23)
[2016-05-31 08:00] VITALS: BP 112/70; PULSE 85; RESP 17; TEMP 98.1; O2SAT 93
[2016-05-31] MEDS: POLYETHYLENE GLYCOL 17 GM PKG PO SCH (09:00)
[2016-05-31] MEDS: MULTIVITAMINS/MINERALS THERAPEUTIC TAB PO SCH ×2 (09:00→21:00)
[2016-05-31] MEDS: SENNOSIDES 8.6 MG TAB PO SCH (09:00)
[2016-05-31] MEDS: LACTULOSE SYRUP 20 GM/30 ML CUP PO SCH (09:00)
[2016-05-31] MEDS: DOCUSATE SODIUM 100 MG CAP PO SCH ×2 (09:00→21:00)
--- NOTE | 2016-05-31 09:33 | HHI.NPPN ---
Subjective General Problems: Anemia, Hypertension Renal Failure: Chronic, End Stage Renal Disease Interval History Resting comfortably. No acute complaints. Eating well. Dialyzed yesterday. ( Zahra Aguilar) Review of Systems General Constitutional: Fatigue (Zahra Aguilar) Gastrointestinal Gastrointestinal: Nausea & Vomiting (Zahra Aguilar) Musculoskeletal MS: Pain/Stiffness MS Remarks some numbness left leg, motor impaired secondary to pain (Zahra Aguilar) Objective Data Data 05/30/16 05/31/16 19:00 07:00 Intake Total 1740 ml Output Total 3000 ml 400 ml Balance -3000 ml 1340 ml Intake Oral 1740 ml Output Urine Total 400 ml Hemodialysis 3000 ml # Bowel Movements 1 Vital Signs Date Time Temp Pulse Resp B/P Pulse Ox O2 Delivery O2 Flow Rate FiO2 05/31/16 08:00 98.1 85 17 112/70 93 05/31/16 04:10 98.2 90 16 95/57 94 05/31/16 00:00 98.9 91 16 101/60 93 05/30/16 20:10 112 05/30/16 20:02 99.4 108 18 117/65 92 05/30/16 19:01 3.00 05/30/16 19:01 Nasal Cannula 3.00 05/30/16 16:00 98.4 74 15 100/62 96 05/30/16 15:07 93 (Zahra Aguilar) -: 05/30/16 1313 05/30/16 1313 Physical Exam General Appearance: Well Developed, Well Nourished, No Acute Distress, Comfortable, Sleeping (Zahra Aguilar) Eyes Eye Exam: Pupils Equal, Pupils Reactive (Zahra Aguilar) Throat Throat Exam: Oral Mucosa [place] & Moist (Zahra Aguilar) Pulmonary Resp Exam: Clear Bilaterally, Breath Sounds Equal, No Distress (Zahra Aguilar) Cardiology CV Exam: Normal Sinus Rhythm, Murmur CV Remarks III/ systolic murmur, mitral area, radiates to left axilla (Zahra Aguilar) Gastrointestinal/Abdomen GI Exam: Soft, Non-Tender, Bowel Sounds Present (Zahra Aguilar) Musculoskeletal MS Exam: Joints Intact, Normal Tone (Zahra Aguilar) Integumentary Skin Exam: Clear, Warm, Dry, Intact (Zahra Aguilar) Extremeties Extremities Exam: Pedal Pulses Palpable, Trace Edema (Zahra Aguilar) Neurologic Neuro Exam: Alert, Awake, Oriented (Zahra Aguilar) Psychiatric Psych Exam: Appropriate Responses (Zahra Aguilar) Assessment/Plan Discussed Condition With: Patient Assessment Summary: Anemia of CKD, Hypertension, End Stage Renal Disease Problem List: (1) ESRD (end stage renal disease) Plan: We will continue HD TTS He had 3L UF yesterday no acute renal concerns Continue Renvela for metabolic bone disorder, follow up phosphorus periodically. Level is elevated but improving Renal diet with no protein restriction avoid IVF, gadolinium (2) Femoral neck fracture Plan: ortho following s/p left hip hemiarthroplasty 05/22 (3) Murmur Plan: Echocardiogram revealed critical , endocarditis was ruled out he will need eventual valve replacement CV surgery had recommended outpatient follow up (4) Hypertension Plan: BP has improved, previously hypotensive continue oral medications (5) Anemia Plan: he has worsening anemia continue epogen with HD iron profile has been ordered (6) Vomiting Plan: GI has signed off ileus resolved tolerating diet Plan stable for discharge from renal perspective when cleared by all physicians ( Zahra Aguilar) Plan patient was seen and examined. Agree with above assessment and plan. (Felix Andersen MD) Problem Qualifiers (1) Femoral neck fracture: Qualified Code: S72.002A - Closed fracture of neck of left femur, initial encounter (2) Hypertension: Qualified Code: I10 - Essential hypertension Zahra Aguilar May 31, 2016 09:33 Felix Andersen MD May 31, 2016 13:34
[2016-05-31] MEDS: PANTOPRAZOLE SODIUM 40 MG VIAL IV PUSH SCH ×2 (11:00→22:22)
[2016-05-31] MEDS: SEVELAMER CARBONATE 800 MG TAB PO SCH ×3 (11:02→16:47)
[2016-05-31] MEDS: ZIPRASIDONE HCL 20 MG CAP PO SCH ×2 (11:02→22:17)
[2016-05-31] MEDS: SODIUM CHLORIDE 0.9% FLUSH 10 ML FLUSH IV FLUSH SCH ×2 (11:02→22:17)
[2016-05-31] MEDS: ZIPRASIDONE HCL 80 MG CAP PO SCH ×2 (11:02→22:17)
[2016-05-31] MEDS: DIVALPROEX SODIUM E.R. 500 MG TAB PO SCH ×2 (11:03→22:19)
[2016-05-31] MEDS: METOPROLOL TARTRATE 25 MG TAB PO SCH ×2 (11:03→22:18)
[2016-05-31 12:00] VITALS: BP 96/60; PULSE 89; RESP 18; TEMP 97.8; O2SAT 98
[2016-05-31 13:48] LABS: TRANSFERRIN IRON PROFILE 79 MG/DL (200-360)
--- NOTE | 2016-05-31 14:05 | PD.CARD.PN ---
Subjective Subjective Remarks Reconsulted for further recommendations Patient is doing well breathing normal no CP Objective Vital Signs / I&O Vital Signs Date Time Temp Pulse Resp B/P Pulse Ox O2 Delivery O2 Flow Rate FiO2 05/31/16 12:00 97.8 89 18 96/60 98 05/31/16 08:30 Room Air 05/31/16 08:00 98.1 85 17 112/70 93 05/31/16 04:10 98.2 90 16 95/57 94 05/31/16 00:00 98.9 91 16 101/60 93 05/30/16 20:10 112 05/30/16 20:02 99.4 108 18 117/65 92 05/30/16 19:01 3.00 05/30/16 19:01 Nasal Cannula 3.00 05/30/16 16:00 98.4 74 15 100/62 96 05/30/16 15:07 93 I/O 05/30/16 05/30/16 05/30/16 05/31/16 05/31/16 05/31/16 07:00 15:00 23:00 07:00 15:00 23:00 Intake Total 360 ml 1500 ml 240 ml Output Total 3000 ml 400 ml Balance 360 ml -3000 ml 1100 ml 240 ml Intake Oral 360 ml 1500 ml 240 ml Output Urine Total 400 ml Hemodialysis 3000 ml # Voids 2 # Bowel Movements 1 1 Physical Exam EYES: No scleral icterus. No injection or drainage. NECK: Supple, trachea midline. No JVD or lymphadenopathy. CARDIOVASCULAR: RRR 4/6 SM RESPIRATORY: Breath sounds equal bilaterally. No accessory muscle use. GASTROINTESTINAL: Abdomen soft, non-tender, nondistended. MUSCULOSKELETAL: No cyanosis, or edema. BACK: Nontender without obvious deformity. No CVA tenderness. Laboratory Laboratory Tests Test 05/31/16 12:55 Iron Level 34 MCG/DL Total Iron Binding Capacity 111 MCG/DL Percent Iron Saturation 30.7 % Assessment and Plan Problem List: (1) Hypertension (2) Aortic valve stenosis, critical (3) Chest pain (4) SVT (supraventricular tachycardia) Assessment and Plan See consult from 05/08 Critical severe MR hip Fracture s/p ORIF ESRD on HD seen by Dr. Moy, CT surgery. Plan is to consider AVR/MVR after full recovery. He will need preoperative LHC. no need to do as inpatient this hospitalization cont current medical regimen FU in OPD after DC then I can schedule elective LHC and FU with Dr. Farzaneh mckinney with further questions. Problem Qualifiers (1) Hypertension: Qualified Code: I10 - Essential hypertension Nash Garcia MD May 31, 2016 14:05
[2016-05-31 16:00] VITALS: BP 90/50; PULSE 83; RESP 18; TEMP 97.7; O2SAT 99
--- NOTE | 2016-05-31 17:43 | HHI.PR ---
Subjective Remarks Follow up for left femoral neck fracture, aortic stenosis. Patient is doing well. Tolerating diet well. No acute concerns. Objective Vitals Vital Signs Date Time Temp Pulse Resp B/P Pulse Ox O2 Delivery O2 Flow Rate FiO2 05/31/16 16:00 97.7 83 18 90/50 99 05/31/16 12:00 97.8 89 18 96/60 98 05/31/16 08:30 Room Air 05/31/16 08:00 98.1 85 17 112/70 93 05/31/16 04:10 98.2 90 16 95/57 94 05/31/16 00:00 98.9 91 16 101/60 93 05/30/16 20:10 112 05/30/16 20:02 99.4 108 18 117/65 92 05/30/16 19:01 3.00 05/30/16 19:01 Nasal Cannula 3.00 I/O 05/30/16 05/30/16 05/30/16 05/31/16 05/31/16 05/31/16 07:00 15:00 23:00 07:00 15:00 23:00 Intake Total 360 ml 1500 ml 240 ml 800 ml Output Total 3000 ml 400 ml 125 ml Balance 360 ml -3000 ml 1100 ml 240 ml 675 ml Intake Oral 360 ml 1500 ml 240 ml 800 ml Output Urine Total 400 ml 125 ml Hemodialysis 3000 ml # Voids 2 # Bowel Movements 1 1 1 Result Diagram: 05/30/16 1313 05/30/16 1313 Objective Remarks GENERAL: Alert, NAD. SKIN: Warm and dry. HEAD: Normocephalic. EYES: No scleral icterus. No injection or drainage. NECK: Supple, trachea midline. No JVD or lymphadenopathy. CARDIOVASCULAR: Regular rate and rhythm without gallops, or rubs. 3/6 systolic murmur at the right 2nd IC. A diastolic murmur best heard at the apex. RESPIRATORY: Breath sounds equal bilaterally. No accessory muscle use. GASTROINTESTINAL: Abdomen soft, non-tender, nondistended. MUSCULOSKELETAL: No cyanosis, or edema. BACK: Nontender without obvious deformity. No CVA tenderness. Procedures Echo 05/07/2016 - Left ventricle: The cavity size was normal. Wall thickness was normal. Systolic function was vigorous. The estimated ejection fraction was in the range of 65% to 70%. Wall motion was normal; there were no regional wall motion abnormalities. - Aortic valve: Transvalvular velocity was increased. There was critical stenosis. Trace regurgitation. Valve area: 0.44cm^2(VTI). Valve area: 0.51cm^2 (Vmax). - Mitral valve: Moderately to severely calcified annulus. There was a possible, medium-sized, mobile vegetation on the atrial aspect of the posterior aspect of the annulus. Transvalvular velocity was increased. The findings are consistent with moderate stenosis. Mild regurgitation. - Left atrium: The atrium was mildly dilated. - Tricuspid valve: Mild regurgitation. - Pulmonary arteries: Systolic pressure was moderately to severely increased. PA peak pressure: 55mm Hg (S). 05/08/2016 DAISY - Left ventricle: The cavity size was normal. Wall thickness was increased in a pattern of mild LVH. Systolic function was normal. The estimated ejection fraction was in the range of 55% to 60%. Wall motion was normal; there were no regional wall motion abnormalities. - Aortic valve: No evidence of vegetation. Transvalvular velocity was increased. There was critical stenosis. Trace regurgitation. - Aorta: There was ulcerated atheromatous plaque in the mid descending aorta, with mobile associated thrombus. - Mitral valve: Moderately to severely calcified annulus. Leaflet separation was mildly reduced. Flail motion involving the posterior leaflet due to rupture of one or more chords. Cannot exclude vegetation although the appearance is more consistent with sclerotic valve with flail posterior leafletinvolving thesubvalvular mitral apparatus. Transvalvular velocity was increased. The findings are consistent with mild to moderate stenosis. Moderate to severe regurgitation. - Left atrium: The atrium was mildly dilated. No evidence of thrombus in the atrial cavity or appendage. - Right atrium: No evidence of thrombus in the atrial cavity or appendage. - Tricuspid valve: No evidence of vegetation. - Pulmonic valve: No evidence of vegetation. 05/22/2016 Left hip hemiarthroplasty 05/10/2016 EGD with biopsy IMPRESSIONS: 1. There was [place] Class B esophagitis noted; multiple biopsies were performed 2. There was erythematous gastritis in the gastric antrum 3. Duodenal inflammation was found in the duodenal bulb 4. Retroflexed views revealed no abnormalities A/P Problem List: (1) Femoral neck fracture ICD Code: S72.009A Status: Acute (2) Fall ICD Code: W19.XXXA Status: Acute (3) Schizophrenia ICD Code: F20.9 Status: Chronic (4) DM (diabetes mellitus) ICD Code: E11.9 Status: Chronic (5) Anemia ICD Code: D64.9 Status: Chronic (6) End stage renal failure on dialysis ICD Code: N18.6 Status: Chronic (7) Aortic valve stenosis, critical ICD Code: I35.0 Status: Acute (8) Mitral valve stenosis ICD Code: I05.0 Status: Acute (9) Mitral valve regurgitation ICD Code: I34.0 Status: Acute (10) Esophagitis, [place] grade B ICD Code: K20.8 Status: Acute (11) Gastritis ICD Code: K29.70 Status: Acute (12) Dysphagia ICD Code: R13.10 Status: Acute Assessment and Plan Mr. Herron is a 55 year old male with a history of ESRD, Diabetes mellitus who was admitted on 05/07/2016 following a mechanical fall and sustained left femoral neck fracture. Orthopedic surgery requested a cardiology clearance. Patient has a baseline right bundle branch block. Cardiology workup included a stress test back in January 2016 which revealed mild hypokinesis changes in the anterior lateral wall as moderate risk. Echocardiogram 05/07 revealed EF of 65-70%. No regional wall motion abnormality. Severe critical aortic stenosis, left atrial dilatation. BLAYNE 55 mmHg. Mitral valve with mobile annulus. Rule out vegetation. Follow-up DAISY revealed mitral severe crest calcification with a flail posterior leaflet. Cardiothoracic surgery/Dr. Moy did see the patient recommended outpatient follow-up. Each was eventually cleared for surgery which was performed 05/22 with a left hip hemiarthroplasty. Overnight on 05/26/2016, Patient was noted to be in a narrow complex tachycardia. Received 1 L normal saline bolus on the floor. Was transferred as a Halicat to room 1309. Monitor again revealed narrow complex tachycardia. Patient received adenosine 6 mg revealed an atrial flutter which converted back to narrow complex tachycardia. Patient received 1 L normal saline bolus here with resolution of hypotension and started on a Cardizem drip with Maximo-Synephrine as necessary maintain proper perfusion. A central line is currently placed in the right subclavian. By the next day, 05/27/2016, patient converted back to first- degree AV block yesterday after 2 hours in ICU. Remains on Maximo-Synephrine at 80 mcg/m. Patient's care was transferred to hospitalist service on 05/29/2016. Left femoral neck fracture - s/p Left hip hemiarthroplasty Bipolar disorder Schizophrenia History of seizures Currently in Depakote 500 mg twice a day/Prozac 20 mg Geodon 100 milligrams twice a day (80 milligrams twice a day home dosage) Evaluated by psychiatry Dr. Cameron. Not suicidal. Recommended Haldol 2 milligrams every 8 hours maximum 10 mg daily Tylenol for fever Percocet/morphine for pain management SVT - appears A flutter Severe aortic stenosis First-degree AV block Right bundle-branch block At anterior fascicular block Mitral valve with severe calcification/flail posterior leaflet Hypertension Stress test 02/08 revealed moderate hypokinesis in the anterior lateral wall. Moderate risk. 2-D echocardiogram 05/07 revealed EF 65-70%. No regional wall motion abnormality. Critical aortic stenosis. Moderate MS with mobile mass. Left atrium dilated. BLAYNE 55 mmHg. 05/08 revealed EF D5 to 60%. No regional wall motion abnormality. Critical aortic stenosis. Severe calcification mitral valve. [address] Moy/CT surgery. Recommended cardiac catheterization/undergo orthopedic surgery and follow-up as outpatient Today, patient was on SVT on floor. In the intensive care unit, he was given 6 mg IV of adenosine and appeared to be a flutter on telemetry. Start Maximo-Synephrine drip to maintain adequate MAP patient with aortic stenosis. Currently at 60 mg a minute Started beta sal and digoxin. Will avoid calcium channel blockers for rate control to avoid afterload reduction. Digoxin discontinued after two 0.25 mg boluses provided Initial troponin 0.07. Potassium and magnesium within normal limits. TSH 0.7. Primary team has reconsulted cardiology. On metoprolol 12.5 mg by mouth twice a day. 1st degree block noted. 05/31/2016: Discussed with CT surgery who will follow patient in the outpatient setting. I requested Dr. Garcia to see patient again and provide an updated recommendations. If no further work up planned, patient can be discharged. Gastroesophageal reflux disease LA class B esophagitis Gastritis Duodenitis History of Reza's esophagus Dysphasia Hepatitis C EGD 05/10 for dysphagia revealed. There was LA Class B esophagitis noted; erythematous gastritis in the gastric antrum and Duodenal inflammation was found in the duodenal bulb Biopsies revealed chronic inflammation dysplasia Patient is on Zantac 75 mg by mouth daily at home for gastritis. On Protonix 40 mg IV daily for gastroesophageal reflux disease. Colace twice a day/Senokot/MiraLAX/lactulose daily for bowel regimen Currently on soft renal diet Diabetes mellitus Plan sliding-scale insulin with Accu-Cheks to maintain euglycemia. On sliding scale insulin at care home Renal: End-stage renal disease on hemodialysis Friday//Friday Secondary hyperparathyroidism Left AV fistula positive thrill. Heme: Anemia of chronic kidney disease receive epogen with hemodialysis Leukocytosis Hemoglobin stable. Full code. Lovenox. Problem Qualifiers (1) Femoral neck fracture: Qualified Code: S72.002A - Closed fracture of neck of left femur, initial encounter (2) Fall: Qualified Code: W19.XXXA - Fall, initial encounter Demetrice Sullivan DO May 31, 2016 5:43 pm Prophylaxis - GI -Protonix - DVT - SCD/Lovenox Problem Qualifiers (1) Femoral neck fracture: Qualified Code: S72.002A - Closed fracture of neck of left femur, initial encounter (2) Fall: Qualified Code: W19.XXXA - Fall, initial encounter Demetrice Sullivan DO May 31, 2016 5:43 pm
[2016-05-31 22:00] VITALS: BP 104/57; PULSE 84; RESP 22; TEMP 96.5; O2SAT 95
[2016-05-31] MEDS: FLUoxetine HCL 20 MG CAP PO SCH (22:18)
[2016-06-01] VITALS: BP 102/62; PULSE 90; RESP 16; TEMP 96.7; O2SAT 100
[2016-06-01 04:00] VITALS: BP 117/68; PULSE 87; RESP 16; TEMP 98.1; O2SAT 98
[2016-06-01] MEDS: METOCLOPRAMIDE HCL 10 MG/2 ML VIAL IV PUSH SCH ×2 (06:36→13:42)
[2016-06-01] MEDS: INSULIN ASPART SUPPLEMENTAL SCALE SQ SCH ×3 (06:36→16:00)
[2016-06-01 08:00] VITALS: BP 97/55; PULSE 104; PULSE 85; RESP 17; TEMP 96.3; O2SAT 97
[2016-06-01] MEDS: SEVELAMER CARBONATE 800 MG TAB PO SCH ×3 (08:00→16:41)
[2016-06-01] MEDS: LACTULOSE SYRUP 20 GM/30 ML CUP PO SCH (09:00)
[2016-06-01] MEDS: SODIUM CHLORIDE 0.9% FLUSH 10 ML FLUSH IV FLUSH SCH (09:00)
[2016-06-01] MEDS: POLYETHYLENE GLYCOL 17 GM PKG PO SCH (09:00)
[2016-06-01] MEDS ORDERED: LEVEMIR SQ (09:18)
[2016-06-01] MEDS ORDERED: POLY17S PO (09:18)
[2016-06-01] MEDS ORDERED: OMEP20TA PO (09:22)
--- NOTE | 2016-06-01 09:23 | HHI.DS ---
Discharge Summary Admission Date May 07, 2016 at 3:36 am Discharge Date: Jun 01, 2016 Admitting Diagnosis L Femoral Neck Fx, Fall (1) Femoral neck fracture ICD Code: S72.009A (2) Fall ICD Code: W19.XXXA (3) Schizophrenia ICD Code: F20.9 (4) DM (diabetes mellitus) ICD Code: E11.9 (5) Anemia ICD Code: D64.9 (6) End stage renal failure on dialysis ICD Code: N18.6 (7) Aortic valve stenosis, critical ICD Code: I35.0 (8) Mitral valve stenosis ICD Code: I05.0 (9) Mitral valve regurgitation ICD Code: I34.0 (10) Esophagitis, [place] grade B ICD Code: K20.8 (11) Gastritis ICD Code: K29.70 (12) Dysphagia ICD Code: R13.10 Procedures Echo 05/07/2016 - Left ventricle: The cavity size was normal. Wall thickness was normal. Systolic function was vigorous. The estimated ejection fraction was in the range of 65% to 70%. Wall motion was normal; there were no regional wall motion abnormalities. - Aortic valve: Transvalvular velocity was increased. There was critical stenosis. Trace regurgitation. Valve area: 0.44cm^2(VTI). Valve area: 0.51cm^2 (Vmax). - Mitral valve: Moderately to severely calcified annulus. There was a possible, medium-sized, mobile vegetation on the atrial aspect of the posterior aspect of the annulus. Transvalvular velocity was increased. The findings are consistent with moderate stenosis. Mild regurgitation. - Left atrium: The atrium was mildly dilated. - Tricuspid valve: Mild regurgitation. - Pulmonary arteries: Systolic pressure was moderately to severely increased. PA peak pressure: 55mm Hg (S). 05/08/2016 DAISY - Left ventricle: The cavity size was normal. Wall thickness was increased in a pattern of mild LVH. Systolic function was normal. The estimated ejection fraction was in the range of 55% to 60%. Wall motion was normal; there were no regional wall motion abnormalities. - Aortic valve: No evidence of vegetation. Transvalvular velocity was increased. There was critical stenosis. Trace regurgitation. - Aorta: There was ulcerated atheromatous plaque in the mid descending aorta, with mobile associated thrombus. - Mitral valve: Moderately to severely calcified annulus. Leaflet separation was mildly reduced. Flail motion involving the posterior leaflet due to rupture of one or more chords. Cannot exclude vegetation although the appearance is more consistent with sclerotic valve with flail posterior leafletinvolving thesubvalvular mitral apparatus. Transvalvular velocity was increased. The findings are consistent with mild to moderate stenosis. Moderate to severe regurgitation. - Left atrium: The atrium was mildly dilated. No evidence of thrombus in the atrial cavity or appendage. - Right atrium: No evidence of thrombus in the atrial cavity or appendage. - Tricuspid valve: No evidence of vegetation. - Pulmonic valve: No evidence of vegetation. 05/22/2016 Left hip hemiarthroplasty 05/10/2016 EGD with biopsy IMPRESSIONS: 1. There was LA Class B esophagitis noted; multiple biopsies were performed 2. There was erythematous gastritis in the gastric antrum 3. Duodenal inflammation was found in the duodenal bulb 4. Retroflexed views revealed no abnormalities Brief History - From Admission The patient is a 55-year-old male with a past medical history of end-stage renal disease and diabetes who is presenting to the hospital following a mechanical fall. The patient says he was wearing extra long socks last night and he tripped over them at around 9 PM. He said he fell down on his left side. He says he did not hit any other part of his body besides the left side. He said he had a severe pain located around his left hip which radiated down his left leg. He stated that the pain went up to 8 out of 10 in severity. The staff at the facility assisted him immediately. He took some Tylenol for pain control. The patient says he has been ambulating without a walker or a cane. He says at the moment he is unable to move his left leg. He says he has been eating well. He denies any fevers. He does endorse one loose bowel movement daily for the past month. He says he last had dialysis on Friday. CBC/BMP: 05/30/16 1313 05/30/16 1313 Significant Findings Laboratory Tests Test 05/30/16 05/31/16 13:13 12:55 Red Blood Count 2.54 MIL/MM3 (4.50-5.90) Hemoglobin 7.5 GM/DL (13.0-17.0) Hematocrit 22.3 % (39.0-51.0) Neutrophils (%) (Auto) 74.2 % (16.0-70.0) Monocytes (%) (Auto) 11.8 % (0.0-8.0) Lymphocytes # (Auto) 0.8 TH/MM3 (1.0-4.8) Chloride Level 95 MEQ/L (98-107) Carbon Dioxide Level 32.8 MEQ/L (21.0-32.0) Blood Urea Nitrogen 34 MG/DL (7-18) Creatinine 3.44 MG/DL (0.60-1.30) Estimat Glomerular Filtration 19 ML/MIN (>89) Rate Random Glucose 109 MG/DL (74-106) Iron Level 34 MCG/DL (65-175) Total Iron Binding Capacity 111 MCG/DL (250-450) Imaging Last Impressions Lung Scan-VQ Nuclear Medicine 05/26/16 0000 Signed Impressions: Service Date/Time: Thursday, May 26, 2016 10:57 - CONCLUSION: Low probability for pulmonary embolism. Angel Rhoades MD FACR Lower Extremity Ultrasound 05/26/16 0000 Signed Impressions: Service Date/Time: Thursday, May 26, 2016 09:52 - CONCLUSION: Negative for deep venous thrombosis. Angel Rhoades MD FACR Chest X-Ray 05/26/16 0000 Signed Impressions: Service Date/Time: Thursday, May 26, 2016 06:23 - CONCLUSION: 1. Central line in good position. 2. Mild interstitial edema. Angel Rhoades MD FACR Abdomen X-Ray 05/25/16 0600 Signed Impressions: Service Date/Time: Wednesday, May 25, 2016 05:28 - CONCLUSION: There is a normal bowel gas pattern. Gil Meade MD Hip and Pelvis X-Ray 05/22/16 0000 Signed Impressions: Service Date/Time: Sunday, May 22, 2016 19:55 - CONCLUSION: 1. Status post left hip replacement with prosthesis in good position. Chris Oakley MD PE at Discharge GENERAL: Alert, NAD. SKIN: Warm and dry. HEAD: Normocephalic. EYES: No scleral icterus. No injection or drainage. NECK: Supple, trachea midline. No JVD or lymphadenopathy. CARDIOVASCULAR: Regular rate and rhythm without gallops, or rubs. 3/6 systolic murmur at the right 2nd IC. A diastolic murmur best heard at the apex. RESPIRATORY: Breath sounds equal bilaterally. No accessory muscle use. GASTROINTESTINAL: Abdomen soft, non-tender, nondistended. MUSCULOSKELETAL: No cyanosis, or edema. BACK: Nontender without obvious deformity. No CVA tenderness. Transfer Summary S/P left Hip arthroplasty (lula) Dr. Santana following for SVT. by echo. CXR with mild pulmonary venous congestion today before dialysis run. Breathing comfortable. Transfer to floor. Pt update on day of discharge Patient is doing well. No fever, chills. Tolerating diet well. Discussed with Dr. Garcia. No further plan to do any in-patient work up. Patient needs to follow up with Dr. Garcia in his office and possibly consider cardiac cath. Hospital Course Mr. Herron is a 55 year old male with a history of ESRD, Diabetes mellitus who was admitted on 05/07/2016 following a mechanical fall and sustained left femoral neck fracture. Orthopedic surgery requested a cardiology clearance. Patient has a baseline right bundle branch block. Cardiology workup included a stress test back in January 2016 which revealed mild hypokinesis changes in the anterior lateral wall as moderate risk. Echocardiogram 05/07 revealed EF of 65-70%. No regional wall motion abnormality. Severe critical aortic stenosis, left atrial dilatation. BLAYNE 55 mmHg. Mitral valve with mobile annulus. Rule out vegetation. Follow-up DAISY revealed mitral severe crest calcification with a flail posterior leaflet. Cardiothoracic surgery/Dr. Moy did see the patient recommended outpatient follow-up. Each was eventually cleared for surgery which was performed 05/22 with a left hip hemiarthroplasty. Overnight on 05/26/2016, Patient was noted to be in a narrow complex tachycardia. Received 1 L normal saline bolus on the floor. Was transferred as a Halicat to room 1309. Monitor again revealed narrow complex tachycardia. Patient received adenosine 6 mg revealed an atrial flutter which converted back to narrow complex tachycardia. Patient received 1 L normal saline bolus here with resolution of hypotension and started on a Cardizem drip with Maximo-Synephrine as necessary maintain proper perfusion. A central line is currently placed in the right subclavian. By the next day, 05/27/2016, patient converted back to first- degree AV block yesterday after 2 hours in ICU. Remains on Maximo-Synephrine at 80 mcg/m. Patient's care was transferred to hospitalist service on 05/29/2016. Left femoral neck fracture - s/p Left hip hemiarthroplasty Bipolar disorder Schizophrenia History of seizures Currently in Depakote 500 mg twice a day/Prozac 20 mg Geodon 100 milligrams twice a day (80 milligrams twice a day home dosage) Evaluated by psychiatry Dr. Cameron. Not suicidal. Recommended Haldol 2 milligrams every 8 hours maximum 10 mg daily Tylenol for fever Percocet/morphine for pain management SVT - appears A flutter Severe aortic stenosis First-degree AV block Right bundle-branch block At anterior fascicular block Mitral valve with severe calcification/flail posterior leaflet Hypertension Stress test 02/08 revealed moderate hypokinesis in the anterior lateral wall. Moderate risk. 2-D echocardiogram 05/07 revealed EF 65-70%. No regional wall motion abnormality. Critical aortic stenosis. Moderate MS with mobile mass. Left atrium dilated. BLAYNE 55 mmHg. 05/08 revealed EF D5 to 60%. No regional wall motion abnormality. Critical aortic stenosis. Severe calcification mitral valve. [address] Moy/CT surgery. Recommended cardiac catheterization/undergo orthopedic surgery and follow-up as outpatient Today, patient was on SVT on floor. In the intensive care unit, he was given 6 mg IV of adenosine and appeared to be a flutter on telemetry. Start Maximo-Synephrine drip to maintain adequate MAP patient with aortic stenosis. Currently at 60 mg a minute Started beta sal and digoxin. Will avoid calcium channel blockers for rate control to avoid afterload reduction. Digoxin discontinued after two 0.25 mg boluses provided Initial troponin 0.07. Potassium and magnesium within normal limits. TSH 0.7. Primary team has reconsulted cardiology. On metoprolol 12.5 mg by mouth twice a day. 1st degree block noted. 05/31/2016: Discussed with CT surgery who will follow patient in the outpatient setting. I requested Dr. Garcia to see patient again and provide an updated recommendations. If no further work up planned, patient can be discharged. 06/01/2016: Dr. Garcia indicated no in-patient work up. Patient to follow up with Dr. Garcia for possible outpatient cath. Gastroesophageal reflux disease [place] class B esophagitis Gastritis Duodenitis History of Reza's esophagus Dysphasia Hepatitis C EGD 05/10 for dysphagia revealed. There was [place] Class B esophagitis noted; erythematous gastritis in the gastric antrum and Duodenal inflammation was found in the duodenal bulb Biopsies revealed chronic inflammation dysplasia Patient is on Zantac 75 mg by mouth daily at home for gastritis. On Protonix 40 mg IV daily for gastroesophageal reflux disease. Colace twice a day/Senokot/MiraLAX/lactulose daily for bowel regimen Currently on soft renal diet Diabetes mellitus Plan sliding-scale insulin with Accu-Cheks to maintain euglycemia. On sliding [facility] insulin at [facility] Renal: End-stage renal disease on hemodialysis Friday//Friday Secondary hyperparathyroidism Left AV fistula positive thrill. Heme: Anemia of chronic kidney disease receive epogen with hemodialysis Leukocytosis Hemoglobin stable. Discussed with Dr. Garcia. Since no further work up planned, we can discharge patient home. Patient to follow up with Cardiology and CT surgery. Pt Condition on Discharge: Good Discharge Disposition: Discharge to SNF Discharge Time: > 30 minutes Discharge Instructions DIET: Follow Instructions for: As Tolerated, No Restrictions, Renal Failure Diet Activities you can perform: Weight Bearing as Rika Other Activity Instructions: WBAT. posterior hip precautions. knee Immobilizer on at all times except when walking. Abduction pillow while in bed. Follow up Referrals: Cardiology - 3 Weeks @ [facility] with Nash Garcia MD [facility] - [facility]eks [facility] with Dimitri Riley Jr., MD New Medications: Insulin Detemir Inj (Levemir Inj) 1,000 unit/ 10 ML Vial 5 UNITS SQ HS Do not mix with any other Insulin. Blood Sugar Management #30 Ref 0 VIAL Omeprazole (Omeprazole) 20 Mg Tab 20 MG PO DAILY Reflux #30 Ref 0 TAB Oxycodone-Acetaminophen (Percocet) 5-325 mg Tab 1 TAB PO Q4H PRN PAIN #90 Ref 0 TAB Polyethylene Glycol 3350 Powder (Polyethylene Glycol 3350 Powder) 17 Gm Pow 17 GM PO DAILY Constipation #30 BOTTLE Continued Medications: Acetaminophen (Tylenol) 325 Mg Tab 650 MG PO Q6H PRN PAIN 1-10 AND/OR FEVER >101F Ref 0 TAB Aspirin (Aspirin) 81 Mg Tabdr 81 MG PO DAILY TAB B-Complex W/ C & Folic Acid (Aracely-Annelise) 1 Tab 1 TAB PO DAILY TAB Calcium Carbonate (Antacid) (Tums) 500 Mg Chew 500 MG PO TIDPC PRN HEARTBURN Ref 0 TAB Divalproex ER (Depakote ER) 500 Mg Prema 500 MG PO BID Control Seizures #30 Ref 0 TAB Fluoxetine (Prozac) 20 Mg Cap 20 MG PO HS #30 Ref 0 CAP Insulin Aspart Inj (Novolog Inj) 1,000 Unit/10 Ml Vial 0 SQ DIRECTED Sliding Scale as directed. Blood Sugar Management #10 Ref 0 ML Metoprolol Tartrate (Metoprolol Tartrate) 25 Mg Tab 12.5 MG PO Q12HR heart Days 30 TAB Sevelamer Carbonate (Renvela) 800 Mg Tab 800 MG PO TIDAC phosphate binder Days 30 TAB Ziprasidone (Geodon) 80 Mg Cap 80 MG PO BID Take 1 capsule (80mg) with 20mg capsule for a total dose of 100mg # 60 Ref 0 CAP Discontinued Medications: Ibuprofen (Ibuprofen) 200 Mg Tab 200 MG PO Q6H PRN PAIN SCALE 1 TO 10 Ref 0 TAB Ranitidine (Zantac 75) 75 Mg Tab 75 MG PO DAILY Take 30 to 60 minutes before eating food or drinking beverages that cause heartburn. Heartburn Ref 0 TAB Demetrice Sullivan DO Jun 01, 2016 9:23 am
[2016-06-01] MEDS: ALBUMIN HUMAN 25% 25 GM/100 ML BAGP IV PRN (09:33)
--- NOTE | 2016-06-01 09:38 | HHI.NPPN ---
Subjective General Problems: Anemia, Hypertension Renal Failure: Chronic, End Stage Renal Disease Additional Remarks No acute complaints, tolerating HD well Review of Systems General Constitutional: Fatigue Gastrointestinal Gastrointestinal: Nausea & Vomiting Musculoskeletal MS: Pain/Stiffness MS Remarks some numbness left leg, motor impaired secondary to pain Objective Data Data 05/31/16 06/01/16 19:00 07:00 Intake Total 800 ml 720 ml Output Total 125 ml 50 ml Balance 675 ml 670 ml Intake Oral 800 ml 720 ml Output Urine Total 125 ml 50 ml # Voids 1 # Bowel Movements 1 1 Vital Signs Date Time Temp Pulse Resp B/P Pulse Ox O2 Delivery O2 Flow Rate FiO2 06/01/16 08:00 96.3 85 17 97/55 97 06/01/16 07:00 Room Air 06/01/16 04:00 98.1 87 16 117/68 98 06/01/16 00:00 96.7 90 16 102/62 100 06/01/16 00:00 90 05/31/16 22:00 96.5 84 22 104/57 95 05/31/16 18:43 Room Air 05/31/16 16:00 97.7 83 18 90/50 99 05/31/16 12:00 97.8 89 18 96/60 98 -: 05/30/16 1313 05/30/16 1313 Physical Exam General Appearance: Well Developed, Well Nourished, No Acute Distress, Comfortable, Sleeping Eyes Eye Exam: Pupils Equal, Pupils Reactive Throat Throat Exam: Oral Mucosa [place] & Moist Pulmonary Resp Exam: Clear Bilaterally, Breath Sounds Equal, No Distress Cardiology CV Exam: Normal Sinus Rhythm, Murmur Gastrointestinal/Abdomen GI Exam: Soft, Non-Tender, Bowel Sounds Present Musculoskeletal MS Exam: Joints Intact, Normal Tone Integumentary Skin Exam: Clear, Warm, Dry, Intact Extremeties Extremities Exam: Pedal Pulses Palpable, Trace Edema Neurologic Neuro Exam: Alert, Awake, Oriented Psychiatric Psych Exam: Appropriate Responses Assessment/Plan Discussed Condition With: Patient Assessment Summary: Anemia of CKD, Hypertension, End Stage Renal Disease Problem List: (1) ESRD (end stage renal disease) Plan: We will continue HD TTS Seen on HD today, tolerating HD well. Plan next HD Friday (outpatient) no acute renal concerns Continue Renvela for metabolic bone disorder Renal diet with no protein restriction avoid IVF, gadolinium (2) Femoral neck fracture Plan: ortho following s/p left hip hemiarthroplasty 05/22 (3) Murmur Plan: Echocardiogram revealed critical , endocarditis was ruled out he will need eventual valve replacement CV surgery had recommended outpatient follow up (4) Hypertension Plan: BP has improved, previously hypotensive continue oral medications (5) Anemia Plan: continue epogen with HD iron profile has been ordered (6) Vomiting Plan: GI has signed off ileus resolved tolerating diet Problem Qualifiers (1) Femoral neck fracture: Qualified Code: S72.002A - Closed fracture of neck of left femur, initial encounter (2) Hypertension: Qualified Code: I10 - Essential hypertension Capo Antony MD Jun 01, 2016 09:38
[2016-06-01 10:00] VITALS: PULSE 95
[2016-06-01] MEDS: EPOETIN ALFA 10,000 UNITS/ML VIAL IV PRN (10:42)
[2016-06-01] MEDS: GELATIN 12 MM/7 MM FOAM TOP PRN (10:44)
[2016-06-01 12:00] VITALS: BP 101/60; PULSE 90; RESP 19; TEMP 97.7; O2SAT 96
[2016-06-01] MEDS: PANTOPRAZOLE SODIUM 40 MG VIAL IV PUSH SCH (13:38)
[2016-06-01] MEDS: METOPROLOL TARTRATE 25 MG TAB PO SCH (13:39)
[2016-06-01] MEDS: MULTIVITAMINS/MINERALS THERAPEUTIC TAB PO SCH (13:40)
[2016-06-01] MEDS: SENNOSIDES 8.6 MG TAB PO SCH (13:41)
[2016-06-01] MEDS: ZIPRASIDONE HCL 20 MG CAP PO SCH (13:42)
[2016-06-01] MEDS: DIVALPROEX SODIUM E.R. 500 MG TAB PO SCH (13:43)
[2016-06-01] MEDS: DOCUSATE SODIUM 100 MG CAP PO SCH (13:43)
[2016-06-01] MEDS: ZIPRASIDONE HCL 80 MG CAP PO SCH (13:43)
== END 2016-06-01 17:53 | DRG 469 ==
LOC: NEPC 01:59 → NEDA 03:36 → NEPHCDU 08:13 → N06A 05-08 23:36 → N03A 05-26 07:00 → N06B 05-30 13:00
PROVIDERS: ADMIT Hospitalist; ATTEND Hospitalist
PROC: B246ZZ4 Ultrasonography of Right and Left Heart, Transesophageal (ICD-10-PCS; 2016-05-08)
PROC: 5A1D60Z (ICD-10-PCS; 2016-05-09)
PROC: 0DB38ZX Excision of Lower Esophagus, Via Natural or Artificial Opening Endoscopic, Diagnostic (ICD-10-PCS; 2016-05-10)
PROC: 30233N1 Transfusion of Nonautologous Red Blood Cells into Peripheral Vein, Percutaneous Approach (ICD-10-PCS; 2016-05-22)
PROC: 0SRS0JA Replacement of Left Hip Joint, Femoral Surface with Synthetic Substitute, Uncemented, Open Approach (ICD-10-PCS; principal; 2016-05-22 16:54)
DX: S72.002A Fracture of unspecified part of neck of left femur, initial encounter for closed fracture (principal); N18.6 End stage renal disease; I12.0 Hypertensive chronic kidney disease with stage 5 chronic kidney disease or end stage renal disease; I42.9 Cardiomyopathy, unspecified; I47.1 Supraventricular tachycardia; N25.81 Secondary hyperparathyroidism of renal origin; E11.22 Type 2 diabetes mellitus with diabetic chronic kidney disease; I48.92 Unspecified atrial flutter; E87.1 Hypo-osmolality and hyponatremia; G40.909 Epilepsy, unspecified, not intractable, without status epilepticus; I48.91 Unspecified atrial fibrillation; F20.0 Paranoid schizophrenia; K91.89 Other postprocedural complications and disorders of digestive system; K56.7 Ileus, unspecified; I45.2 Bifascicular block; Z99.2 Dependence on renal dialysis; E78.5 Hyperlipidemia, unspecified; D63.1 Anemia in chronic kidney disease; K29.70 Gastritis, unspecified, without bleeding; K21.0 Gastro-esophageal reflux disease with esophagitis; I08.0 Rheumatic disorders of both mitral and aortic valves; B19.20 Unspecified viral hepatitis C without hepatic coma; I44.0 Atrioventricular block, first degree; E87.5 Hyperkalemia; E20.1 Pseudohypoparathyroidism; K29.80 Duodenitis without bleeding; I25.10 Atherosclerotic heart disease of native coronary artery without angina pectoris; I25.2 Old myocardial infarction; W01.0XXA Fall on same level from slipping, tripping and stumbling without subsequent striking against object, initial encounter; Y92.129 Unspecified place in nursing home as the place of occurrence of the external cause; Z85.828 Personal history of other malignant neoplasm of skin; Z79.4 Long term (current) use of insulin; Z91.11 Patient's noncompliance with dietary regimen
CPT/HCPCS: 36430; 71010; 73502; 74000; 76937; 78582; 80048; 80053; 80069; 80074; 80162; 81001; 82272; 82550; 82948; 83036; 83540; 83550; 83735; 83880; 84100; 84145; 84443; 84484; 85014; 85018; 85025; 85027; 85610; 85730; 86140; 86592; 86611; 86638; 86703; 86850; 86900; 86901; 86902; 86920; 86922; 87040; 88305; 90935; 93005; 93306; 93312; 93320; 93325; 93970; 94150; 96374; 96375; 96376; A9540; A9567; C1776; C9113; J0131; J0153; J0690; J0696; J0780; J1160; J1170; J1580; J1630; J1644; J1650; J1815; J2250; J2270; J2370; J2405; J2710; J2765; J3010; J7030; J7040; J7050; J7060; L1830; P9016; P9047; Q4081

== ENCOUNTER 2016-10-23 08:55 | Inpatient (IN) | payer MEDICARE, OTHER ==
[~2016-10-23] VITALS: Ht 190.5 cm; Wt 90.0 kg
[2016-10-23] VITALS (10 sets, daily range): BP systolic 97–129; BP diastolic 60–69; PULSE 102–115; RESP 16–24; TEMP 95.9–98.6; O2SAT 84–100
[~2016-10-23 08:55] MED LIST changes: -FAMO20TA2 PO; +LEVEMIR SQ; +OMEP20TA PO; +PERC5TAB12 PO; +POLY17S PO; +PROZ20CA11 PO; -SILV1CRE20 TOPICAL
--- NOTE | 2016-10-23 09:06 | PD ---
HPI Chief Complaint: Abdominal Pain Time Seen by Provider: 09:03 Travel History International Travel<30 days: No Contact w/Intl Traveler<30days: No Traveled to known affect area: No History of Present Illness HPI 56-year-old male patient with history of hepatitis C, end-stage renal disease on dialysis, diabetes, multiple medical issues, presents to the ER today for several days history of nausea, vomiting, 5 out of 10 left lower quadrant abdominal pain, diarrhea. He denies any fevers or any other issues. He states he has not had his dialysis in a few days. Modifying Factors: None Associated Signs & Symptoms: Nausea, vomiting, diarrhea, abdominal pain Risk Factors: Diabetic, end-stage renal on dialysis PFSH Past Medical History Anemia: Yes Arthritis: No Asthma: No Autoimmune Disease: No Blood Disorders: No Anxiety: Yes Depression: Yes Heart Rhythm Problems: No Cancer: Yes (skin cancer squamous facial) Cardiovascular Problems: Yes High Cholesterol: Yes Chemotherapy: No Chest Pain: Yes Congestive Heart Failure: No COPD: No Cerebrovascular Accident: No Diabetes: Yes Dialysis: Yes (TUES/THURS/SAT) Diminished Hearing: Yes (DIMINISHED IN R EYE) Endocrine: Yes Gastrointestinal Disorders: Yes (GERD) GERD: No Glaucoma: No Genitourinary: Yes (RENAL FAILURE. DIALYSIS 3X'S WEEKLY) Headaches: No Hepatitis: Yes (TYPE C) Hiatal Hernia: No Heparin Induced Thrombocytopen: No Hypertension: Yes Immune Disorder: No Implanted Vascular Access Dvce: Yes Kidney Stones: No Musculoskeletal: No Neurologic: No Psychiatric: Yes (SCHIZOPHRENIA) Reproductive: No Respiratory: No Immunizations Current: Yes Migraines: No Myocardial Infarction: No Radiation Therapy: No Renal Failure: Yes (ON HEMODIALYSIS) Schizophrenia: Yes Seizures: No Sickle Cell Disease: No Sleep Apnea: No Thyroid Disease: Yes (HYPER PARATHYROIDISM) Ulcer: No Past Surgical History Abdominal Surgery: No AICD: No Appendectomy: No Arteriovenous Shunt: Yes (left upper arm) Cardiac Surgery: No Cholecystectomy: No Ear Surgery: No Endocrine Surgery: No Eye Surgery: No Genitourinary Surgery: No Gynecologic Surgery: No Insulin Pump: No Joint Replacement: No Neurologic Surgery: No Oral Surgery: Yes (T & A) Pacemaker: No Thoracic Surgery: No Tonsillectomy: Yes Other Surgery: Yes (shunt to left arm / SKIN SURGERY TO FOREHEAD) Social History Alcohol Use: No Tobacco Use: No Substance Use: No Allergies-Medications (Allergen,Severity, Reaction): Coded Allergies: fexofenadine (Unverified Adverse Reaction, Unknown, PT DENIES ALLERGY, ) Pt denies allergy Reported Meds & Prescriptions Reported Meds & Active Scripts Active Omeprazole 20 Mg Tab 20 Mg PO DAILY Levemir Inj (Insulin Detemir) 1,000 unit/ 10 ML Vial 5 Units SQ HS Do not mix with any other Insulin. Polyethylene Glycol 3350 Powder (Polyethylene Glycol) 17 Gm Pow 17 Gm PO DAILY Percocet (Oxycodone-Acetaminophen) 5-325 mg Tab 1 Tab PO Q4H PRN Renvela (Sevelamer Carbonate) 800 Mg Tab 800 Mg PO TIDAC 30 Days Metoprolol Tartrate 25 Mg Tab 12.5 Mg PO Q12HR 30 Days Reported Vitamin D-1000 (Cholecalciferol) 1,000 Unit Tab 2,000 Units PO DAILY Vitamin C (Ascorbic Acid) 250 Mg Chew 500 Mg CHEW BID Zofran (Ondansetron HCl) 4 Mg Tab 4 Mg PO Q8HR PRN Sensipar (Cinacalcet) 30 Mg Tab 30 Mg PO DAILY Aspirin 81 Mg Chew 81 Mg CHEW DAILY Ammonium Lactate (Lactic Acid (Ammonium Lactate)) 12% Lotn 1 Applic TOPICAL ONCE Hydroxyzine HCl 25 Mg Tab 25 Mg PO Q6HR Prozac (Fluoxetine HCl) 20 Mg Cap 20 Mg PO HS Geodon (Ziprasidone) 80 Mg Cap 80 Mg PO BID Take 1 capsule (80mg) with 20mg capsule for a total dose of 100mg Aracely-Annelise (B-Complex W/ C & Folic Acid) 1 Tab 1 Tab PO DAILY Depakote ER (Divalproex Sodium) 500 Mg Prema 500 Mg PO BID Novolog Inj (Insulin Aspart) 1,000 Unit/10 Ml Vial 0 SQ DIRECTED Sliding Scale as directed. Tums (Calcium Carbonate (Antacid)) 500 Mg Chew 500 Mg PO TIDPC PRN Tylenol (Acetaminophen) 325 Mg Tab 650 Mg PO Q6H PRN Review of Systems Except as stated in HPI: all other systems reviewed are Neg Physical Exam Narrative GENERAL: Well-developed elderly white male patient currently in distress. Awake and oriented 3. SKIN: Focused skin assessment warm/dry. HEAD: Atraumatic. Normocephalic. EYES: Pupils equal and round. No scleral icterus. No injection or drainage. ENT: No nasal bleeding or discharge. Mucous membranes pink and moist. NECK: Trachea midline. No JVD. CARDIOVASCULAR: Regular rate and rhythm. No murmur appreciated. RESPIRATORY: No accessory muscle use. Clear to auscultation. Breath sounds equal bilaterally. GASTROINTESTINAL: Abdomen soft, mild left lower quadrant tenderness without guarding or rebound, nondistended. Hepatic and splenic margins not palpable. MUSCULOSKELETAL: No obvious deformities. No clubbing. No cyanosis. No edema. NEUROLOGICAL: Awake and alert. No obvious cranial nerve deficits. Motor grossly within normal limits. Normal speech. PSYCHIATRIC: Appropriate mood and affect; insight and judgment normal. Data Data Last Documented VS Vital Signs Date Time Temp Pulse Resp B/P (MAP) Pulse Ox O2 Delivery O2 Flow Rate FiO2 10/23/16 10:06 114 24 129/68 (88) 97 Room Air 10/23/16 09:00 98.6 Orders Orders Complete Blood Count With Diff (10/23/16 09:03) Comprehensive Metabolic Panel (10/23/16 09:03) Lipase (10/23/16 09:03) Urinalysis - C+S If Indicated (10/23/16 09:03) Ct Abd/Pel W/O Iv Contrast (10/23/16 09:03) Iv Access Insert/Monitor (10/23/16 09:03) Ecg Monitoring (10/23/16 09:03) Oximetry (10/23/16 09:03) Hydromorphone Pf Inj (Dilaudid Pf Inj) (10/23/16 09:15) Ondansetron Inj (Zofran Inj) (10/23/16 09:15) Sodium Chloride 0.9% Flush (Ns Flush) (10/23/16 09:15) Electrocardiogram (10/23/16 09:03) Sodium Chlorid 0.9% 500 Ml Inj (Ns 500 M (10/23/16 09:15) Pantoprazole Inj (Protonix Inj) (10/23/16 10:15) Ondansetron Inj (Zofran Inj) (10/23/16 10:15) Labs Laboratory Tests Test 10/23/16 09:00 White Blood Count 14.3 TH/MM3 Red Blood Count 4.31 MIL/MM3 Hemoglobin 13.1 GM/DL Hematocrit 40.0 % Mean Corpuscular Volume 92.8 FL Mean Corpuscular Hemoglobin 30.4 PG Mean Corpuscular Hemoglobin Concent 32.7 % Red Cell Distribution Width 17.2 % Platelet Count 387 TH/MM3 Mean Platelet Volume 8.5 FL Neutrophils (%) (Auto) 86.2 % Lymphocytes (%) (Auto) 4.1 % Monocytes (%) (Auto) 9.5 % Eosinophils (%) (Auto) 0.0 % Basophils (%) (Auto) 0.2 % Neutrophils # (Auto) 12.3 TH/MM3 Lymphocytes # (Auto) 0.6 TH/MM3 Monocytes # (Auto) 1.4 TH/MM3 Eosinophils # (Auto) 0.0 TH/MM3 Basophils # (Auto) 0.0 TH/MM3 CBC Comment DIFF FINAL Differential Comment Blood Urea Nitrogen 75 MG/DL Creatinine 5.67 MG/DL Random Glucose 233 MG/DL Total Protein 9.0 GM/DL Albumin 3.8 GM/DL Calcium Level 9.5 MG/DL Alkaline Phosphatase 213 U/L Aspartate Amino Transf (AST/SGOT) 13 U/L Alanine Aminotransferase (ALT/SGPT) 34 U/L Total Bilirubin 0.5 MG/DL Sodium Level 135 MEQ/L Potassium Level 4.6 MEQ/L Chloride Level 85 MEQ/L Carbon Dioxide Level 33.9 MEQ/L Anion Gap 16 MEQ/L Estimat Glomerular Filtration Rate 10 ML/MIN Lipase 146 U/L MDM Medical Decision Making Medical Screen Exam Complete: Yes Emergency Medical Condition: Yes Medical Record Reviewed: Yes Interpretation(s) Laboratory Tests Test 10/23/16 09:00 White Blood Count 14.3 TH/MM3 (4.0-11.0) Red Blood Count 4.31 MIL/MM3 (4.50-5.90) Neutrophils (%) (Auto) 86.2 % (16.0-70.0) Lymphocytes (%) (Auto) 4.1 % (9.0-44.0) Monocytes (%) (Auto) 9.5 % (0.0-8.0) Neutrophils # (Auto) 12.3 TH/MM3 (1.8-7.7) Lymphocytes # (Auto) 0.6 TH/MM3 (1.0-4.8) Monocytes # (Auto) 1.4 TH/MM3 (0-0.9) Blood Urea Nitrogen 75 MG/DL (7-18) Creatinine 5.67 MG/DL (0.60-1.30) Random Glucose 233 MG/DL (74-106) Total Protein 9.0 GM/DL (6.4-8.2) Alkaline Phosphatase 213 U/L (45-117) Aspartate Amino Transf (AST/SGOT) 13 U/L (15-37) Sodium Level 135 MEQ/L (136-145) Chloride Level 85 MEQ/L (98-107) Carbon Dioxide Level 33.9 MEQ/L (21.0-32.0) Anion Gap 16 MEQ/L (5-15) Estimat Glomerular Filtration Rate 10 ML/MIN (>89) Last 24 hours Impressions Abdomen/Pelvis CT 10/23/16 0903 Signed Impressions: Service Date/Time: Friday, October 23, 2016 09:31 - CONCLUSION: 1. No acute abnormality to explain the patient's pain. 2. Atrophic kidneys with multiple parenchymal and suspected collecting system calcifications without obstruction. There are multiple low density lesions associated with each kidney which are poorly characterize on this unenhanced study but likely relate to cysts. 3. Pronounced coronary artery atherosclerotic calcifications. 4. Hiatal hernia. Papa Medina Jr., MD Differential Diagnosis Gastritis versus gastroenteritis versus obstruction versus dehydration versus metabolic issues Narrative Course Lab work shows significant BUN and creatinine elevations above baseline. Patient has not received dialysis in a few days. He is hypotensive and tachycardic. IV fluid bolus was given in the ER. CAT scan did not show any signs of acute intra-abdominal processes. At this point, my plan would be to admit him for further evaluation. Case is discussed with Dr. Elliott for admission. Diagnosis Primary Impression: Nausea and vomiting Additional Impression: End stage renal failure on dialysis Admitting Information Admitting Physician Requests: Admit Lay Cortez MD Oct 23, 2016 09:06
[2016-10-23] MEDS ORDERED: HYDROmorphone HCL PF 2 MG/ML VIAL IVS ONE (09:15)
[2016-10-23] MEDS ORDERED: ONDANSETRON HCL 4 MG/2 ML VIAL IVP ONE (09:15)
[2016-10-23] MEDS ORDERED: SODIUM CHLORID 0.9% 500 ML INJ 500 ML IV ONE (09:15)
[2016-10-23] MEDS ORDERED: SODIUM CHLORIDE 0.9% FLUSH 10 ML FLUSH IV FLUSH PRN ×2 (09:15→13:30)
[2016-10-23 09:45] LABS: AUTOMATED NEUTROPHIL # 12.3 TH/MM3 (1.8-7.7); BASOPHIL % 0.2 % (0.0-2.0); HEMO FLAGS DIFF FINAL; LYMPH % 4.1 % (9.0-44.0); LYMPHOCYTE # 0.6 TH/MM3 (1.0-4.8); MEAN CELL VOLUME 92.8 FL (80.0-100.0); MEAN CORPUSCULAR HEMOGLOBIN 30.4 PG (27.0-34.0); MEAN CORPUSCULAR HGB CONC 32.7 % (32.0-36.0); MONO % 9.5 % (0.0-8.0); NEUT % 86.2 % (16.0-70.0); PLATELET COUNT 387 TH/MM3 (150-450); RED BLOOD COUNT 4.31 MIL/MM3 (4.50-5.90); RED CELL DISTRIBUTION WIDTH 17.2 % (11.6-17.2); WHITE BLOOD COUNT 14.3 TH/MM3 (4.0-11.0)
--- NOTE | 2016-10-23 09:53 | RADRPT ---
EXAM DATE/TIME: 10/23/2016 09:31 [facility] COMPARISON: No previous studies available for comparison. INDICATIONS : Left lower quadrant pain, nausea, vomiting. ORAL CONTRAST: No oral contrast ingested. RADIATION DOSE: 10.09 CTDIvol (mGy) MEDICAL HISTORY : Renal disease, end stage. Hepatitis C. Gastroesophageal reflux disease.Diabetes. SURGICAL HISTORY : None. ENCOUNTER: Initial ACUITY: 4 - 6 days PAIN SCALE: 5/10 LOCATION: Left lower quadrant TECHNIQUE: Volumetric scanning of the abdomen and pelvis was performed. Using automated exposure control and ad justment of the mA and/or kV according to patient size, radiation dose was kept as low as reasonably achievable to obtain optimal diagnostic quality images. DICOM format image data is available electro nically for review and comparison. FINDINGS: LOWER LUNGS: Significant coronary artery atherosclerotic calcifications. Mild cardiomegaly. No pericardial effusio n. Tiny hiatal hernia. LIVER: Homogeneous density without lesion. There is no dilation of the biliary tree. No calcified gallston es. SPLEEN: Normal size without lesion. PANCREAS: Within normal limits. KIDNEYS: The kidneys are atrophic. Multiple small parenchymal and questionable collecting system calcification s seen. Multiple low density cortical lesions observed likely related to cysts. ADRENAL GLANDS: Within normal limits. VASCULAR: There is no aortic aneurysm. BOWEL/MESENTERY: The stomach, small bowel, and colon demonstrate no acute abnormality. There is no free intraperitone al air or fluid. ABDOMINAL WALL: Within normal limits. RETROPERITONEUM: There is no lymphadenopathy. BLADDER: No wall thickening or mass. REPRODUCTIVE: Within normal limits. INGUINAL: There is no lymphadenopathy or hernia. MUSCULOSKELETAL: A left hip prosthesis. This is partially seen. A degenerative lumbar spine. CONCLUSION: 1. No acute abnormality to explain the patient's pain. 2. Atrophic kidneys with multiple parenchymal and suspected collecting system calcifications without obstruction. There are multiple low density lesions associated with each kidney which are poorly mariella acterize on this unenhanced study but likely relate to cysts. 3. Pronounced coronary artery atherosclerotic calcifications. 4. Hiatal hernia. Papa Medina Jr., MD on October 23, 2016 at 9:46 Board Certified Radiologist. This report was verified electronically.
[2016-10-23 09:55] LABS: ANION GAP 16 MEQ/L (5-15); AST (GOT) 13 U/L (15-37); BICARBONATE 33.9 MEQ/L (21.0-32.0); BLOOD UREA NITROGEN 75 MG/DL (7-18); CHLORIDE 85 MEQ/L (98-107); GLOMERULAR FILTRATION RATE 10 ML/MIN (>89); POTASSIUM 4.6 MEQ/L (3.5-5.1); SODIUM (NA) 135 MEQ/L (136-145)
[2016-10-23 09:56] LABS: ALT (GPT) 34 U/L (12-78)
[2016-10-23 09:58] LABS: ALKALINE PHOSPHATASE 213 U/L (45-117); TOTAL BILIRUBIN ADULT 0.5 MG/DL (0.2-1.0)
[2016-10-23] MEDS ORDERED: PANTOPRAZOLE SODIUM 40 MG VIAL IV PUSH ONE (10:15)
[2016-10-23] MEDS ORDERED: ONDANSETRON HCL 4 MG/2 ML VIAL IV PUSH ONE (10:15)
[2016-10-23] MEDS ORDERED: HYDR-3133 PO (10:24)
[2016-10-23] MEDS ORDERED: ZOFR4TAB PO (10:32)
[2016-10-23] MEDS ORDERED: VITA250C3 CHEW (10:32)
[2016-10-23] MEDS ORDERED: AMMO12LO TOPICAL (10:32)
[2016-10-23] MEDS ORDERED: ASPI81CH CHEW (10:32)
[2016-10-23] MEDS ORDERED: VITA1000 PO (10:32)
[2016-10-23] MEDS ORDERED: CINA30 PO (10:32)
[2016-10-23] MEDS ORDERED: LACTULOSE SYRUP 20 GM/30 ML CUP PO PRN (11:45)
[2016-10-23] MEDS ORDERED: NALOXONE HCL 0.4 MG/ML AMP IV PRN (11:45)
[2016-10-23] MEDS ORDERED: SENNOSIDES 8.6 MG TAB PO PRN (11:45)
[2016-10-23] MEDS ORDERED: ACETAMINOPHEN 325 MG TAB PO PRN ×2 (11:45→13:30)
[2016-10-23] MEDS ORDERED: MAGNESIUM HYDROXIDE SUSP 30 ML CUP PO PRN (11:45)
[2016-10-23] MEDS ORDERED: ONDANSETRON HCL 4 MG/2 ML VIAL IVP PRN (11:45)
[2016-10-23] MEDS ORDERED: BISACODYL 10 MG SUPP RECTAL PRN (11:45)
[2016-10-23] MEDS ORDERED: SODIUM CHLOR 0.9% 1000 ML INJ 1,000 ML IV PRN (13:20)
[2016-10-23] MEDS ORDERED: SODIUM CHLOR 0.9% 1000 ML INJ 1,000 ML OTHER PRN ×2 (13:20)
--- NOTE | 2016-10-23 13:20 | PD.CONS ---
HPI Service Nephrology Consult Requested By Reason for Consult ESRD on HD Primary Care Physician Felix Antony MD History of Present Illness This is a 56 y/o male patient with ESRD who dialyzes TTS. He had full treatment yesterday wtih 4.5 liter UF. This AM he awoke to lower abdominal pain with nausea,vomiting, diarrhea. Denies sick contacts and his stool is not dark or red. CT on arrival was negative for acute issues. PMH listed below includes HTN, DM II, hyperlipidemia, anemia, and metabolic bone disorder. He is not in distress, drinking water with no active vomiting. We were consulted for dialysis management. (Zahra Aguilar) Review of Systems Constitutional: DENIES: Fatigue, Weight gain, Change in appetite Cardiovascular: DENIES: Chest pain Gastrointestinal: COMPLAINS OF: Abdominal pain, Diarrhea, Nausea, Vomiting, DENIES: Constipation (Zahra Aguilar) Past Family Social History Allergies: Coded Allergies: fexofenadine (Unverified Adverse Reaction, Unknown, PT DENIES ALLERGY, ) Pt denies allergy Past Medical History ESRD on HD T--Fri HTN Hyperlipidemia anemia metabolic bone disorder Past Surgical History L arm AVF tonsils/adenoids forehead skin lesion removed hip fracture repair Reported Medications Omeprazole 20 Mg Tab 20 Mg PO DAILY Levemir Inj (Insulin Detemir) 1,000 unit/ 10 ML Vial 5 Units SQ HS Do not mix with any other Insulin. Polyethylene Glycol 3350 Powder (Polyethylene Glycol) 17 Gm Pow 17 Gm PO DAILY Percocet (Oxycodone-Acetaminophen) 5-325 mg Tab 1 Tab PO Q4H PRN Renvela (Sevelamer Carbonate) 800 Mg Tab 800 Mg PO TIDAC 30 Days Metoprolol Tartrate 25 Mg Tab 12.5 Mg PO Q12HR 30 Days Vitamin D-1000 (Cholecalciferol) 1,000 Unit Tab 2,000 Units PO DAILY Vitamin C (Ascorbic Acid) 250 Mg Chew 500 Mg CHEW BID Zofran (Ondansetron HCl) 4 Mg Tab 4 Mg PO Q8HR PRN Sensipar (Cinacalcet) 30 Mg Tab 30 Mg PO DAILY Aspirin 81 Mg Chew 81 Mg CHEW DAILY Ammonium Lactate (Lactic Acid (Ammonium Lactate)) 12% Lotn 1 Applic TOPICAL ONCE Hydroxyzine HCl 25 Mg Tab 25 Mg PO Q6HR Prozac (Fluoxetine HCl) 20 Mg Cap 20 Mg PO HS Geodon (Ziprasidone) 80 Mg Cap 80 Mg PO BID Take 1 capsule (80mg) with 20mg capsule for a total dose of 100mg Aracely-Annelise (B-Complex W/ C & Folic Acid) 1 Tab 1 Tab PO DAILY Depakote ER (Divalproex Sodium) 500 Mg Prema 500 Mg PO BID Novolog Inj (Insulin Aspart) 1,000 Unit/10 Ml Vial 0 SQ DIRECTED Sliding Scale as directed. Tums (Calcium Carbonate (Antacid)) 500 Mg Chew 500 Mg PO TIDPC PRN Tylenol (Acetaminophen) 325 Mg Tab 650 Mg PO Q6H PRN Active Ordered Medications Current Medications Medications (Trade) Dose Ordered Sig/Diane Route Start Time Stop Time Status Last Admin (NS Flush) 2 ml UNSCH PRN IV FLUSH 10/23/16 09:15 (Tylenol) 650 mg Q4H PRN PO 10/23/16 11:45 (Zofran Inj) 4 mg Q6H PRN IVP 10/23/16 11:45 (Heparin Inj) 5,000 units Q12H SQ 10/23/16 13:00 (Narcan Inj) 0.4 mg UNSCH PRN IV 10/23/16 11:45 (Milk Of Magnesia Liq) 30 ml Q12H PRN PO 10/23/16 11:45 (Senokot) 17.2 mg Q12H PRN PO 10/23/16 11:45 (Dulcolax Supp) 10 mg DAILY PRN RECTAL 10/23/16 11:45 (Lactulose Liq) 30 ml DAILY PRN PO 10/23/16 11:45 Family History No hx of renal disorders Social History No smoking or ETOH 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[employer], 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, single full code (Zahra Aguilar) Physical Exam Vital Signs Vital Signs Date Time Temp Pulse Resp B/P (MAP) Pulse Ox O2 Delivery O2 Flow Rate FiO2 10/23/16 11:46 112 20 103/60 (74) 84 Room Air 10/23/16 11:46 20 96 Nasal Cannula 2.00 10/23/16 10:06 114 24 129/68 (88) 97 Room Air 10/23/16 09:08 18 10/23/16 09:00 98.6 115 18 97/66 (76) Physical Exam Middle aged male, lying supine, in no distress awake/oriented, no neuro deficit S1/S2, regular rate, II/ systolic murmur lungs clear in all [place]una abdomen obese, soft, non tender ext: no edema, left arm AVF patent; scattered abrasions to all extremities Laboratory Laboratory Tests Test 10/23/16 09:00 White Blood Count 14.3 Red Blood Count 4.31 Hemoglobin 13.1 Hematocrit 40.0 Mean Corpuscular Volume 92.8 Mean Corpuscular Hemoglobin 30.4 Mean Corpuscular Hemoglobin Concent 32.7 Red Cell Distribution Width 17.2 Platelet Count 387 Mean Platelet Volume 8.5 Neutrophils (%) (Auto) 86.2 Lymphocytes (%) (Auto) 4.1 Monocytes (%) (Auto) 9.5 Eosinophils (%) (Auto) 0.0 Basophils (%) (Auto) 0.2 Neutrophils # (Auto) 12.3 Lymphocytes # (Auto) 0.6 Monocytes # (Auto) 1.4 Eosinophils # (Auto) 0.0 Basophils # (Auto) 0.0 CBC Comment DIFF FINAL Differential Comment Blood Urea Nitrogen 75 Creatinine 5.67 Random Glucose 233 Total Protein 9.0 Albumin 3.8 Calcium Level 9.5 Alkaline Phosphatase 213 Aspartate Amino Transf (AST/SGOT) 13 Alanine Aminotransferase (ALT/SGPT) 34 Total Bilirubin 0.5 Sodium Level 135 Potassium Level 4.6 Chloride Level 85 Carbon Dioxide Level 33.9 Anion Gap 16 Estimat Glomerular Filtration Rate 10 Lipase 146 (Zahra Aguilar) Result Diagram: 10/23/1689910/23/16899 Imaging Last Impressions Abdomen/Pelvis CT 10/23/16902 Signed Impressions: Service Date/Time: Sunday, October 23, 2016 09:31 - CONCLUSION: 1. No acute abnormality to explain the patient's pain. 2. Atrophic kidneys with multiple parenchymal and suspected collecting system calcifications without obstruction. There are multiple low density lesions associated with each kidney which are poorly characterize on this unenhanced study but likely relate to cysts. 3. Pronounced coronary artery atherosclerotic calcifications. 4. Hiatal hernia. Papa Medina Jr., MD (Zahra Aguilar) Assessment and Plan Problem List: (1) End stage renal failure on dialysis ICD Codes: N18.6 - End stage renal failure on dialysis; Z99.2 - Dependence on renal dialysis Status: Chronic Plan: Resume TTS HD per typical schedule, he did have full treatment Friday and Friday no acute electrolyte concerns he has functioning AVF for HD use; avoid Left arm procedures avoid IVF, gadolinium is contraindicated obtain intermittent renal panel he is oligoanuric at baseline resume renvela for metabolic bone disorder (2) Nausea and vomiting ICD Codes: R11.2 - Nausea with vomiting, unspecified Status: Acute Plan: CT abd/pelvis was negative he is tolerating water without vomiting or pain defer management to medical team (3) DM (diabetes mellitus) ICD Codes: E11.9 - DM (diabetes mellitus) Status: Chronic Plan: monitor blood glucose, goal 140-180 mg/dL insulin as needed (4) Anemia ICD Codes: D64.9 - Anemia Status: Chronic Plan: Hb stable epogen not required, monitor for changes (5) Hypertension ICD Codes: I10 - Hypertension Status: Acute Plan: BP stable monitor and resume home medications (Zahra Aguilar) Assessment and Plan patient was seen and examined. Agree with above assessment and plan. GI workup in progress. EGD is planned. (Felix Andersen MD) Zahra Aguilar Oct 23, 2016 13:20 Felix Andersen MD Oct 23, 2016 17:32
--- NOTE | 2016-10-23 13:29 | HHI.HP ---
[facility] Service [facility] Primary Care Physician Felix Antony MD Admission Diagnosis nausea and vomitingacute on chronic renal failure Diagnoses: (1) Nausea and vomiting Diagnosis: Principal (2) Sepsis (3) End stage renal failure on dialysis (4) Hyperlipidemia (5) Schizophrenia (6) DM (diabetes mellitus) (7) Leukocytosis (8) Hypertension Chief Complaint: Nausea/vomiting Travel History International Travel<30 Days: No Contact w/Intl Traveler <30 Da: No Traveled to Known Affected Are: No History of Present Illness The patient is a 56-year-old male who presented [facility] the emergency department [facility] today for complaint of nausea and vomiting that started this morning. He denies diarrhea or constipation. Denies fever, chills, night sweats. States that he was feeling fine yesterday. He is relatively poor historian. He tells me that he had dialysis yesterday, but had told the ER physician that he has not had dialysis in a few days. Review of Systems Constitutional: DENIES: Fever, Chills, Night Sweats Eyes: DENIES: Blurred vision, Vision loss Ears, nose, mouth, throat: DENIES: Hearing loss Respiratory: DENIES: Cough, Wheezing, Sputum production, Shortness of breath Cardiovascular: DENIES: Chest pain, Palpitations, Dyspnea on Exertion, Lower Extremity Edema Gastrointestinal: COMPLAINS OF: Abdominal pain, Nausea, Vomiting, DENIES: Constipation, Diarrhea Genitourinary: DENIES: Urinary frequency, Urinary incontinence, Urgency, Hematuria, Dysuria, Nocturia Musculoskeletal: DENIES: Joint pain, Muscle aches Integumentary: DENIES: Pruritus, Rash Hematologic/lymphatic: DENIES: Bruising Neurologic: DENIES: Headache Past Family Social History Past Medical History ESRD on hemodialysis Seizure disorder Reza's esophagus Diabetes mellitus Schizophrenia History of skin cancer GERD Hypertension Hyperparathyroidism History of hepatitis C Anxiety/depression Hyperlipidemia Past Surgical History Skin cancer removed from forehead Left upper extremity AV graft Tonsillectomy/adenoidectomy Reported Medications Omeprazole 20 Mg Tab 20 Mg PO DAILY Levemir Inj (Insulin Detemir) 1,000 unit/ 10 ML Vial 5 Units SQ HS Do not mix with any other Insulin. Polyethylene Glycol 3350 Powder (Polyethylene Glycol) 17 Gm Pow 17 Gm PO DAILY Percocet (Oxycodone-Acetaminophen) 5-325 mg Tab 1 Tab PO Q4H PRN Renvela (Sevelamer Carbonate) 800 Mg Tab 800 Mg PO TIDAC 30 Days Metoprolol Tartrate 25 Mg Tab 12.5 Mg PO Q12HR 30 Days Vitamin D-1000 (Cholecalciferol) 1,000 Unit Tab 2,000 Units PO DAILY Vitamin C (Ascorbic Acid) 250 Mg Chew 500 Mg CHEW BID Zofran (Ondansetron HCl) 4 Mg Tab 4 Mg PO Q8HR PRN Sensipar (Cinacalcet) 30 Mg Tab 30 Mg PO DAILY Aspirin 81 Mg Chew 81 Mg CHEW DAILY Ammonium Lactate (Lactic Acid (Ammonium Lactate)) 12% Lotn 1 Applic TOPICAL ONCE Hydroxyzine HCl 25 Mg Tab 25 Mg PO Q6HR Prozac (Fluoxetine HCl) 20 Mg Cap 20 Mg PO HS Geodon (Ziprasidone) 80 Mg Cap 80 Mg PO BID Take 1 capsule (80mg) with 20mg capsule for a total dose of 100mg Aracely-Annelise (B-Complex W/ C & Folic Acid) 1 Tab 1 Tab PO DAILY Depakote ER (Divalproex Sodium) 500 Mg Prema 500 Mg PO BID Novolog Inj (Insulin Aspart) 1,000 Unit/10 Ml Vial 0 SQ DIRECTED Sliding Scale as directed. Tums (Calcium Carbonate (Antacid)) 500 Mg Chew 500 Mg PO TIDPC PRN Tylenol (Acetaminophen) 325 Mg Tab 650 Mg PO Q6H PRN Allergies: Coded Allergies: fexofenadine (Unverified Adverse Reaction, Unknown, PT DENIES ALLERGY, ) Pt denies allergy Family History Mother had breast cancer Social History Denies alcohol, tobacco, or illicit drug use. Physical Exam Vital Signs Vital Signs Date Time Temp Pulse Resp B/P (MAP) Pulse Ox O2 Delivery O2 Flow Rate FiO2 10/23/16 11:46 112 20 103/60 (74) 84 Room Air 10/23/16 11:46 20 96 Nasal Cannula 2.00 10/23/16 10:06 114 24 129/68 (88) 97 Room Air 10/23/16 09:08 18 10/23/16 09:00 98.6 115 18 97/66 (76) Physical Exam GENERAL: Well-nourished, well-developed male in no acute distress. HEENT: Normocephalic, atraumatic. Pupils equal, round and reactive. Extraocular movements intact. No scleral icterus. No injection or drainage. Oropharynx is clear. Mucous membranes are moist. CARDIOVASCULAR: Regular rate and rhythm without murmurs, gallops, or rubs. RESPIRATORY: Clear to auscultation. No wheezes, rales, or rhonchi. Breathing is non-labored. GASTROINTESTINAL: Abdomen soft, mild tenderness to palpation diffusely, nondistended. EXTREMITIES: No lower extremity edema. No calf tenderness. Wounds on lower legs and upper extremities. PSYCH: Alert and oriented x 3. Laboratory Laboratory Tests Test 10/23/16 09:00 White Blood Count 14.3 Red Blood Count 4.31 Hemoglobin 13.1 Hematocrit 40.0 Mean Corpuscular Volume 92.8 Mean Corpuscular Hemoglobin 30.4 Mean Corpuscular Hemoglobin Concent 32.7 Red Cell Distribution Width 17.2 Platelet Count 387 Mean Platelet Volume 8.5 Neutrophils (%) (Auto) 86.2 Lymphocytes (%) (Auto) 4.1 Monocytes (%) (Auto) 9.5 Eosinophils (%) (Auto) 0.0 Basophils (%) (Auto) 0.2 Neutrophils # (Auto) 12.3 Lymphocytes # (Auto) 0.6 Monocytes # (Auto) 1.4 Eosinophils # (Auto) 0.0 Basophils # (Auto) 0.0 CBC Comment DIFF FINAL Differential Comment Blood Urea Nitrogen 75 Creatinine 5.67 Random Glucose 233 Total Protein 9.0 Albumin 3.8 Calcium Level 9.5 Alkaline Phosphatase 213 Aspartate Amino Transf (AST/SGOT) 13 Alanine Aminotransferase (ALT/SGPT) 34 Total Bilirubin 0.5 Sodium Level 135 Potassium Level 4.6 Chloride Level 85 Carbon Dioxide Level 33.9 Anion Gap 16 Estimat Glomerular Filtration Rate 10 Lipase 146 Result Diagram: 10/23/1689910/23/16899 Imaging Last Impressions Abdomen/Pelvis CT 10/23/16902 Signed Impressions: Service Date/Time: Sunday, October 23, 2016 09:31 - CONCLUSION: 1. No acute abnormality to explain the patient's pain. 2. Atrophic kidneys with multiple parenchymal and suspected collecting system calcifications without obstruction. There are multiple low density lesions associated with each kidney which are poorly characterize on this unenhanced study but likely relate to cysts. 3. Pronounced coronary artery atherosclerotic calcifications. 4. Hiatal hernia. Papa Medina Jr., MD Caprini VTE Risk Assessment Caprini VTE Risk Assessment: Mod/High Risk (score >= 2) Caprini Risk Assessment Model Point Value = 1 Point Value = 2 Point Value = 3 Point Value = 5 Age 41-60 Minor surgery BMI > 25 kg/m2 Swollen legs Varicose veins or History of unexplained or recurrent spontaneous Oral contraceptives or hormone replacement Sepsis (< 1 month) Serious lung disease, including pneumonia (< 1 month) Abnormal pulmonary function Acute myocardial infarction Congestive heart failure (< 1 month) History of inflammatory bowel disease Medical patient at bed rest Age 61-74 Arthroscopic surgery Major open surgery (> 45 min) Laparoscopic surgery (> 45 min) Malignancy Confined to bed (> 72 hours) Immobilizing plaster cast Central venous access Age >= 75 History of VTE Family history of VTE Factor V Leiden Prothrombin [id number] Lupus anticoagulant Anticardiolipin antibodies Elevated serum homocysteine Heparin-induced thrombocytopenia Other congenital or acquired thrombophilia Stroke (< 1 month) Elective arthroplasty Hip, pelvis, or leg fracture Acute spinal cord injury (< 1 month) Prophylaxis Regimen Total Risk Factor Score Risk Level Prophylaxis Regimen 0-1 Low Early ambulation 2 Moderate Order ONE of the following: *Sequential Compression Device (SCD) *Heparin 5000 units SQ BID 3-4 Higher Order ONE of the following medications: *Heparin 5000 units SQ TID *Enoxaparin/Lovenox 40 mg SQ daily (WT < 150 kg, CrCl > 30 mL/min) *Enoxaparin/Lovenox 30 mg SQ daily (WT < 150 kg, CrCl > 10-29 mL/min) *Enoxaparin/Lovenox 30 mg SQ BID (WT < 150 kg, CrCl > 30 mL/min) AND/OR *Sequential Compression Device (SCD) 5 or more Highest Order ONE of the following medications: *Heparin 5000 units SQ TID (Preferred with Epidurals) *Enoxaparin/Lovenox 40 mg SQ daily (WT < 150 kg, CrCl > 30 mL/min) *Enoxaparin/Lovenox 30 mg SQ daily (WT < 150 kg, CrCl > 10-29 mL/min) *Enoxaparin/Lovenox 30 mg SQ BID (WT < 150 kg, CrCl > 30 mL/min) AND *Sequential Compression Device (SCD) Assessment and Plan Assessment and Plan 1. Sepsis: Patient presented with tachycardia, leukocytosis. Source is presumed to be abdominal. Add Flagyl. IV fluids. 2. Nausea/vomiting: Possible gastroenteritis. Consult gastroenterology. 3. Diabetes mellitus: Monitor Accu-Cheks and cover with sliding scale insulin. Continue Levemir. 4. Hypertension: Blood pressure has been low. Hold antihypertensive medications and monitor blood pressure. 5. Hyperlipidemia: Hold statin until symptoms improve. 6. Seizure disorder: Continue Depakote. 7. Anxiety/depression, schizophrenia: Continue ProzaDarren shendon. 8. End-stage renal disease: Consult nephrology for hemodialysis. 9. GERD: Continue PPI. 10. DVT prophylaxis: Heparin. Akhil Elliott MD Oct 23, 2016 13:29
[2016-10-23] MEDS ORDERED: cloNIDine HCL 0.1 MG TAB PO PRN (13:30)
[2016-10-23] MEDS ORDERED: HEPARIN SODIUM - IV 10,000 UNITS/10 ML VIAL PRN (13:30)
[2016-10-23] MEDS ORDERED: diphenhydrAMINE HCL 25 MG CAP PO PRN (13:30)
[2016-10-23] MEDS ORDERED: GENTAMICIN SULFATE (DIALYSIS USE ONLY) 20 MG/2 ML VIAL IV PRN (13:30)
[2016-10-23] MEDS ORDERED: GELATIN 12 MM/7 MM FOAM TOP PRN (13:30)
[2016-10-23] MEDS ORDERED: MANNITOL 12.5 GM/50 ML VIAL IV PRN (13:30)
[2016-10-23] MEDS ORDERED: CALCIUM CARBONATE 500 MG CHEWABLE TAB PO PRN (13:30)
[2016-10-23] MEDS ORDERED: ONDANSETRON HCL 4 MG/2 ML VIAL IV PRN (13:30)
[2016-10-23] MEDS ORDERED: HEPARIN SODIUM - IV 10,000 UNITS/10 ML VIAL IVF PRN (13:30)
[2016-10-23] MEDS: HEPARIN SODIUM - SQ 10,000 UNITS/ML VIAL SQ SCH (14:18)
[2016-10-23] MEDS ORDERED: DEXTROSE 50% IN WATER 50 ML VIAL(D50) IV PRN (14:45)
[2016-10-23] MEDS ORDERED: GLUCAGON 1 MG/ML VIAL OTHER PRN (14:45)
[2016-10-23] MEDS ORDERED: NITROGLYCERIN 0.4 MG SL 25 TABS/BTL SL PRN (15:00)
--- NOTE | 2016-10-23 15:28 | PD.CONS ---
HPI History of Present Illness This is a 56 year old male with hx Reza's, hep C, ESRD on HD, DM, who presented from SNF with n/v, onset today per pt. He says there was red blood in emesis. Admits diarrhea as well, and black tarry stool. He has had black stools for months. Per nursing staff he has been projectile vomiting coffee ground emesis and is not tolerating diet nor PO fluids. He tells me he has blood in his urine but he is on dialysis. Denies abd pain. Admits hx GIB. He says he had a colonoscopy in [place] last year but can recall no findings. Per EMR he was seen by GI in [facility] [place] and treated for ileus, also had EGD 04/2016 with findings of esophagitis, gastritis, duodenitis, GERD and path benign. Poor historian. (Sanjuana Amos) PFSH Past Medical History ESRD on hemodialysis Seizure disorder Reza's esophagus Diabetes mellitus Schizophrenia History of skin cancer GERD Hypertension Hyperparathyroidism History of hepatitis C Anxiety/depression Hyperlipidemia Past Surgical History Skin cancer removed from forehead Left upper extremity AV graft Tonsillectomy/adenoidectomy (Sanjuana Amos) Coded Allergies: fexofenadine (Unverified Adverse Reaction, Unknown, PT DENIES ALLERGY, ) Pt denies allergy Family History Mother had breast cancer Social History Denies alcohol, tobacco, or illicit drug use. (Sanjuana Amos) Review of Systems Constitutional: DENIES: Fever Eyes: DENIES: Blurred vision Ears, nose, mouth, throat: DENIES: Hearing loss Respiratory: COMPLAINS OF: Cough, Hemoptysis Cardiovascular: DENIES: Chest pain Gastrointestinal: COMPLAINS OF: Black stools, Diarrhea, Nausea, Vomiting, Hematemesis, DENIES: Abdominal pain, Bloody stools Genitourinary: COMPLAINS OF: Hematuria Musculoskeletal: DENIES: Joint Swelling Neurologic: DENIES: Headache Psychiatric: DENIES: Confusion (Sanjuana Amos) GI Exam Vitals I&O Vital Signs Date Time Temp Pulse Resp B/P (MAP) Pulse Ox O2 Delivery O2 Flow Rate FiO2 10/23/16 13:23 95 Nasal Cannula 2.00 10/23/16 11:46 112 20 103/60 (74) 84 Room Air 10/23/16 11:46 20 96 Nasal Cannula 2.00 10/23/16 10:35 20 10/23/16 10:06 114 24 129/68 (88) 97 Room Air 10/23/16 09:08 18 10/23/16 09:00 98.6 115 18 97/66 (76) I/O 10/22/16 10/22/16 10/22/16 10/23/16 10/23/16 10/23/16 07:00 15:00 23:00 07:00 15:00 23:00 Intake Total 500 ml Output Total 200 ml Balance 300 ml Intake IV Total 500 ml Output Emesis 200 ml Imaging Last Impressions Abdomen/Pelvis CT 10/23/16902 Signed Impressions: Service Date/Time: Sunday, October 23, 2016 09:31 - CONCLUSION: 1. No acute abnormality to explain the patient's pain. 2. Atrophic kidneys with multiple parenchymal and suspected collecting system calcifications without obstruction. There are multiple low density lesions associated with each kidney which are poorly characterize on this unenhanced study but likely relate to cysts. 3. Pronounced coronary artery atherosclerotic calcifications. 4. Hiatal hernia. Papa Medina Jr., MD Laboratory Test 10/23/16 09:00 White Blood Count 14.3 TH/MM3 Red Blood Count 4.31 MIL/MM3 Hemoglobin 13.1 GM/DL Hematocrit 40.0 % Mean Corpuscular Volume 92.8 FL Mean Corpuscular Hemoglobin 30.4 PG Mean Corpuscular Hemoglobin Concent 32.7 % Red Cell Distribution Width 17.2 % Platelet Count 387 TH/MM3 Mean Platelet Volume 8.5 FL Neutrophils (%) (Auto) 86.2 % Lymphocytes (%) (Auto) 4.1 % Monocytes (%) (Auto) 9.5 % Eosinophils (%) (Auto) 0.0 % Basophils (%) (Auto) 0.2 % Neutrophils # (Auto) 12.3 TH/MM3 Lymphocytes # (Auto) 0.6 TH/MM3 Monocytes # (Auto) 1.4 TH/MM3 Eosinophils # (Auto) 0.0 TH/MM3 Basophils # (Auto) 0.0 TH/MM3 CBC Comment DIFF FINAL Differential Comment Blood Urea Nitrogen 75 MG/DL Creatinine 5.67 MG/DL Random Glucose 233 MG/DL Total Protein 9.0 GM/DL Albumin 3.8 GM/DL Calcium Level 9.5 MG/DL Alkaline Phosphatase 213 U/L Aspartate Amino Transf (AST/SGOT) 13 U/L Alanine Aminotransferase (ALT/SGPT) 34 U/L Total Bilirubin 0.5 MG/DL Sodium Level 135 MEQ/L Potassium Level 4.6 MEQ/L Chloride Level 85 MEQ/L Carbon Dioxide Level 33.9 MEQ/L Anion Gap 16 MEQ/L Estimat Glomerular Filtration Rate 10 ML/MIN Lipase 146 U/L Physical Examination HEENT: PERRL; normocephalic; atraumatic; no jaundice. voice is hoarse CHEST: coarse rales CARDIAC: tachy, +murmur ABDOMEN: Soft, nondistended, nontender; no hepatosplenomegaly; bowel sounds are present in all four quadrants. EXTREMITIES: No clubbing, cyanosis, or edema. SKIN: Normal; no rash; no jaundice. [employer]: No focal deficits; alert and oriented times three. (Sanjuana Amos) Assessment and Plan Plan ASSESSMENT - UGIB - n/v with projectil coffeeground emesis witnessed by nursing staff, pt says he has red blood in emesis and black stool not anemic at this time. Last EGD 04/2016 showed esophagitis, gastritis, duodenitis path benign. We did see him in [facility] [place] at that time for ileus. PLAN - EGD tomorrow - obtain consent - NPO now except ice chips, not tolerating diet - monitor HH - further recs to follow results above This pt seen by myself and Dr Herrera and this note is written on his behalf (Sanjuana Amos) Physician Comments Seen and examined, plan as above, EGD in AM. Will follow up with you. (Deric Herrera MD) Sanjuana Amos Oct 23, 2016 15:28 Deric Herrera MD Oct 23, 2016 17:11
[2016-10-23] MEDS: INSULIN ASPART SUPPLEMENTAL SCALE SQ SCH ×2 (16:38→19:37)
[2016-10-23] MEDS: SEVELAMER CARBONATE 800 MG TAB PO SCH (17:00)
--- NOTE | 2016-10-23 17:07 | EKG ---
Date Performed: 10/23/2016 Time Performed: 09:50:38 PTAGE: 56 years EKG: SINUS TACHYCARDIA RIGHT BUNDLE BRANCH BLOCK LEFT ANTERIOR FASCICULAR BLOCK POSSIBLE LEFT VE NTRICULAR HYPERTROPHY POSSIBLE SEPTAL MYOCARDIAL INFARCTION Compared to previous tracing, the patient 's HR improved. There were also inverted inferior T waves potentially consistent with an evolving inf erior CA Clinical correlation is recommended ABNORMAL ECG PREVIOUS TRACING : 05/26/2016 05.24 DOCTOR: Savanah New Interpretating Date/Time 10/23/2016 17:03:11
[2016-10-23] MEDS: hydrOXYzine HCL 25 MG TAB PO SCH (18:00)
[2016-10-23] MEDS: ZIPRASIDONE HCL 80 MG CAP PO SCH (19:36)
[2016-10-23] MEDS: FLUoxetine HCL 20 MG CAP PO SCH (19:36)
[2016-10-23] MEDS: DIVALPROEX SODIUM E.R. 500 MG TAB PO SCH (19:36)
[2016-10-23] MEDS: ASCORBIC ACID 500 MG TAB PO SCH (19:37)
[2016-10-23] MEDS: INSULIN DETEMIR 100 UNITS/ML VIAL SQ SCH (19:37)
[2016-10-23] MEDS ORDERED: METOPROLOL TARTRATE 25 MG TAB PO PRN (19:45)
[2016-10-23] MEDS ORDERED: INSULIN HUMAN REGULAR 1,000 UNITS/10 ML VIAL SQ PRN (19:45)
[2016-10-23] MEDS ORDERED: CHLORHEXIDINE GLUCONATE 2 % 1 PACK (2 CLOTHS) TOPICAL PRN (19:45)
[2016-10-23] MEDS ORDERED: SODIUM CHLORID 0.9% 500 ML IV PRN (19:45)
[2016-10-23] MEDS ORDERED: LACTATED RINGER'S 1000 ML IV PRN (19:45)
[2016-10-23] MEDS ORDERED: POVIDONE IODINE 5% (ANTISEPSIS KIT) 4 APPLICATIONS EACH NARE PRN (19:45)
[2016-10-24] MEDS: hydrOXYzine HCL 25 MG TAB PO SCH ×5 (00:18→23:02)
[2016-10-24] MEDS: HEPARIN SODIUM - SQ 10,000 UNITS/ML VIAL SQ SCH ×3 (00:18→23:05)
[2016-10-24 03:22] VITALS: O2SAT 96
[2016-10-24 04:20] VITALS: BP 116/76; PULSE 95; RESP 18; TEMP 96.7; O2SAT 95
[2016-10-24 06:01] LABS: AUTOMATED NEUTROPHIL # 16.6 TH/MM3 (1.8-7.7); BASOPHIL # 0.1 TH/MM3 (0-0.2); BASOPHIL % 0.5 % (0.0-2.0); EOSINOPHIL % 0.1 % (0.0-4.0); HEMATOCRIT 36.4 % (39.0-51.0); LYMPH % 7.6 % (9.0-44.0); LYMPHOCYTE # 1.5 TH/MM3 (1.0-4.8); MEAN CELL VOLUME 93.6 FL (80.0-100.0); MEAN CORPUSCULAR HEMOGLOBIN 31.1 PG (27.0-34.0); MEAN CORPUSCULAR HGB CONC 33.3 % (32.0-36.0); MONO % 7.1 % (0.0-8.0); NEUT % 84.7 % (16.0-70.0); PLATELET COUNT 315 TH/MM3 (150-450); RED BLOOD COUNT 3.89 MIL/MM3 (4.50-5.90); RED CELL DISTRIBUTION WIDTH 16.8 % (11.6-17.2); WHITE BLOOD COUNT 19.5 TH/MM3 (4.0-11.0)
[2016-10-24 06:06] LABS: HEMO FLAGS AUTO DIFF
[2016-10-24] MEDS: INSULIN ASPART SUPPLEMENTAL SCALE SQ SCH ×4 (06:15→19:51)
[2016-10-24 06:45] LABS: BICARBONATE 31.2 MEQ/L (21.0-32.0); POTASSIUM 5.2 MEQ/L (3.5-5.1)
[2016-10-24 07:12] LABS: SCAN/DIFF AUTO DIFF CONFIRMED
[2016-10-24 07:43] VITALS: BP 114/58; PULSE 97; RESP 18; TEMP 96.7; O2SAT 97
[2016-10-24] MEDS: SEVELAMER CARBONATE 800 MG TAB PO SCH ×3 (08:00→17:00)
[2016-10-24] MEDS: DIVALPROEX SODIUM E.R. 500 MG TAB PO SCH ×2 (08:01→19:48)
[2016-10-24] MEDS: ZIPRASIDONE HCL 80 MG CAP PO SCH ×2 (08:01→19:48)
[2016-10-24] MEDS: ASPIRIN 81 MG CHEW TAB CHEW SCH (08:01)
[2016-10-24] MEDS: CHOLECALCIFEROL (VIT D3) 1000 UNIT TAB PO SCH (08:02)
[2016-10-24] MEDS: ASCORBIC ACID 500 MG TAB PO SCH ×2 (08:02→19:48)
[2016-10-24] MEDS: CINACALCET HYDROCHLORIDE 30 MG TAB PO SCH (08:02)
[2016-10-24] MEDS: VITAMIN B CMPLX/VITC/FOLIC AC CAP PO SCH (08:02)
[2016-10-24] MEDS: PANTOPRAZOLE SOD 20 MG DELAYED RELEASE TAB PO SCH (08:02)
[2016-10-24] MEDS: ALBUMIN HUMAN 25% 25 GM/100 ML BAGP IV PRN (10:15)
--- NOTE | 2016-10-24 11:29 | HHI.NPPN ---
Subjective General Problems: Anemia Renal Failure: Chronic, End Stage Renal Disease Interval History Seen during dialysis today. He is NPO for EGD later today. Abdominal pain, N/V/ D have subsided. (Zahra Aguilar) Objective Data Data Vital Signs Date Time Temp Pulse Resp B/P (MAP) Pulse Ox O2 Delivery O2 Flow Rate FiO2 10/24/16 08:47 Room Air 10/24/16 07:43 96.7 97 18 114/58 (76) 97 10/24/16 04:20 96.7 95 18 116/76 (89) 95 10/24/16 03:22 96 Nasal Cannula 2.00 10/23/16 23:50 97.1 104 17 120/69 (86) 98 10/23/16 20:15 96.6 106 16 123/69 (87) 100 10/23/16 18:34 102 10/23/16 17:11 95.9 102 18 102/62 (75) 99 10/23/16 16:47 10/23/16 15:50 106 20 104/67 (79) 96 Nasal Cannula 2.00 10/23/16 13:23 95 Nasal Cannula 2.00 10/23/16 13:00 103 20 121/67 (85) 95 Nasal Cannula 2.00 10/23/16 11:46 112 20 103/60 (74) 84 Room Air 10/23/16 11:46 20 96 Nasal Cannula 2.00 (Zahra Aguilar) -: 10/24/16 0519 10/24/16 0519 Microbiology 10/23/16 Aerobic Blood Culture - Preliminary, Resulted NO GROWTH IN 1 DAY 10/23/16 Anaerobic Blood Culture - Preliminary, Resulted NO GROWTH IN 1 DAY 10/23/16 Aerobic Blood Culture - Preliminary, Resulted NO GROWTH IN 1 DAY 10/23/16 Anaerobic Blood Culture - Preliminary, Resulted NO GROWTH IN 1 DAY Imaging Last Impressions Abdomen/Pelvis CT 10/23/16 0903 Signed Impressions: Service Date/Time: Sunday, October 23, 2016 09:31 - CONCLUSION: 1. No acute abnormality to explain the patient's pain. 2. Atrophic kidneys with multiple parenchymal and suspected collecting system calcifications without obstruction. There are multiple low density lesions associated with each kidney which are poorly characterize on this unenhanced study but likely relate to cysts. 3. Pronounced coronary artery atherosclerotic calcifications. 4. Hiatal hernia. Papa Medina Jr., MD (Zahra Aguilar) Physical Exam General Appearance: Well Developed, Well Nourished, No Acute Distress, Comfortable (Zahra Aguilar) Throat Throat Exam: Oral Mucosa [place] & Moist (Zahra Aguilar) Pulmonary Resp Exam: Clear Bilaterally, Breath Sounds Equal (Zahra Aguilar) Cardiology CV Exam: Regular, Normal Sinus Rhythm (Zahra Aguilar) Gastrointestinal/Abdomen GI Exam: Soft, Non-Tender, Bowel Sounds Present (Zahra Aguilar) Musculoskeletal MS Exam: Joints Intact, Normal Gait, Normal Tone (Zahra Aguilar) Integumentary Skin Exam: Clear, Warm, Dry, Intact (Zahra Aguilar) Extremeties Extremities Exam: No Edema, Pedal Pulses Palpable Extremeties Remarks AVF left arm accessed during HD (Zahra Aguilar) Neurologic Neuro Exam: Alert, Awake, Oriented, Speech Clear, Moving All Extremities (Zahra Aguilar) Psychiatric Psych Exam: Appropriate Responses (Zahra Aguilar) Assessment/Plan Discussed Condition With: Patient Assessment Summary: Anemia of CKD, Hypertension, End Stage Renal Disease Problem List: (1) End stage renal failure on dialysis ICD Codes: N18.6 - End stage renal failure on dialysis; Z99.2 - Dependence on renal dialysis Status: Chronic Plan: Seen during HD today on a 2K, BFR 350, minimal UF as his blood pressure is low Continue TTS HD per typical schedule no acute electrolyte concerns he has functioning AVF for HD use; avoid Left arm procedures avoid IVF, gadolinium is contraindicated dose of renvela increased for metabolic bone disorder (2) Nausea and vomiting ICD Codes: R11.2 - Nausea with vomiting, unspecified Status: Acute Plan: CT abd/pelvis was negative he is denying vomiting or pain due for EGD today GI following (3) DM (diabetes mellitus) ICD Codes: E11.9 - DM (diabetes mellitus) Status: Chronic Plan: monitor blood glucose, goal 140-180 mg/dL insulin as needed (4) Anemia ICD Codes: D64.9 - Anemia Status: Chronic Plan: Hb stable epogen not required, monitor for changes (5) Hypertension ICD Codes: I10 - Hypertension Status: Acute Plan: BP stable continue current medications (Zarha Aguilar) Plan patient was seen and examined. Agree with above assessment and plan. (Felix Andersen MD) Zahra Aguilar Oct 24, 2016 11:29 Felix Andersen MD Oct 24, 2016 13:17
--- NOTE | 2016-10-24 13:16 | HHI.GIFU ---
Subjective Remarks Less vomiting this morning but still nauseated, did not get clearance for sedation by anesthesia, and requested cardiac clearance. Objective Vitals I&O Vital Signs Date Time Temp Pulse Resp B/P (MAP) Pulse Ox O2 Delivery O2 Flow Rate FiO2 10/24/16 08:47 Room Air 10/24/16 07:43 96.7 97 18 114/58 (76) 97 10/24/16 04:20 96.7 95 18 116/76 (89) 95 10/24/16 03:22 96 Nasal Cannula 2.00 10/23/16 23:50 97.1 104 17 120/69 (86) 98 10/23/16 20:15 96.6 106 16 123/69 (87) 100 10/23/16 18:34 102 10/23/16 17:11 95.9 102 18 102/62 (75) 99 10/23/16 16:47 10/23/16 15:50 106 20 104/67 (79) 96 Nasal Cannula 2.00 10/23/16 13:23 95 Nasal Cannula 2.00 I/O 10/23/16 10/23/16 10/23/16 10/24/16 10/24/16 10/24/16 07:00 15:00 23:00 07:00 15:00 23:00 Intake Total 500 ml 120 ml 0 ml Output Total 800 ml Balance -300 ml 120 ml 0 ml Intake Oral 120 ml 0 ml IV Total 500 ml Output Emesis 800 ml # Voids 0 0 # Bowel Movements 0 0 Laboratory Laboratory Tests Test 10/24/16 05:19 White Blood Count 19.5 Red Blood Count 3.89 Hemoglobin 12.1 Hematocrit 36.4 Mean Corpuscular Volume 93.6 Mean Corpuscular Hemoglobin 31.1 Mean Corpuscular Hemoglobin Concent 33.3 Red Cell Distribution Width 16.8 Platelet Count 315 Mean Platelet Volume 9.2 Neutrophils (%) (Auto) 84.7 Lymphocytes (%) (Auto) 7.6 Monocytes (%) (Auto) 7.1 Eosinophils (%) (Auto) 0.1 Basophils (%) (Auto) 0.5 Neutrophils # (Auto) 16.6 Lymphocytes # (Auto) 1.5 Monocytes # (Auto) 1.4 Eosinophils # (Auto) 0.0 Basophils # (Auto) 0.1 CBC Comment AUTO DIFF Differential Comment AUTO DIFF CONFIRMED Blood Urea Nitrogen 104 Creatinine 7.18 Random Glucose 197 Calcium Level 10.5 Phosphorus Level 9.9 Sodium Level 132 Potassium Level 5.2 Chloride Level 83 Carbon Dioxide Level 31.2 Anion Gap 18 Estimat Glomerular Filtration Rate 8 Date/Time Source Procedure Growth Status 10/23/16 16:00 Blood Peripheral Aerobic Blood Culture - Preliminary NO GROWTH IN 1 DAY Resulted 10/23/16 16:00 Blood Peripheral Anaerobic Blood Culture - Preliminary NO GROWTH IN 1 DAY Resulted Physical Exam HEENT: Pupils round and reactive to light; normocephalic; atraumatic; no jaundice. Throat is clear. NECK: Neck is supple, no JVD, no lymphadenopathy. CHEST: Chest is clear to auscultation and percussion. CARDIAC: Regular rate and rhythm with no murmur gallop or rubs. ABDOMEN: Soft, nondistended, nontender; no hepatosplenomegaly; bowel sounds are present in all four quadrants. EXTREMITIES: No clubbing, cyanosis, or edema. Assessment and Plan Plan ASSESSMENT - UGIB - n/v with projectil coffeeground emesis witnessed by nursing staff, pt says he has red blood in emesis and black stool not anemic at this time. Last EGD 04/2016 showed esophagitis, gastritis, duodenitis path benign. [facility] at [facility] time for ileus. - High risk for sedation according to anesthesia with valvular heart disease and low sats on room air in the recovery room PLAN - Cardiac work up and clearance for anesthesia by cardiology - EGD tomorrow if cleared by arts therapist - Clear liquid diet - Monitor HH - Further recs to follow results above Deric Herrera MD Oct 24, 2016 13:16
--- NOTE | 2016-10-24 13:46 | HHI.PR ---
Subjective Remarks Follow up nausea/vomiting/GI bleed. Patient states that he feels better today. Nausea/vomiting have improved. Had dialysis today. EGD on hold for cardiology clearance. Objective Vitals Vital Signs Date Time Temp Pulse Resp B/P (MAP) Pulse Ox O2 Delivery O2 Flow Rate FiO2 10/24/16 08:47 Room Air 10/24/16 07:43 96.7 97 18 114/58 (76) 97 10/24/16 04:20 96.7 95 18 116/76 (89) 95 10/24/16 03:22 96 Nasal Cannula 2.00 10/23/16 23:50 97.1 104 17 120/69 (86) 98 10/23/16 20:15 96.6 106 16 123/69 (87) 100 10/23/16 18:34 102 10/23/16 17:11 95.9 102 18 102/62 (75) 99 10/23/16 16:47 10/23/16 15:50 106 20 104/67 (79) 96 Nasal Cannula 2.00 I/O 10/23/16 10/23/16 10/23/16 10/24/16 10/24/16 10/24/16 07:00 15:00 23:00 07:00 15:00 23:00 Intake Total 500 ml 120 ml 0 ml Output Total 800 ml Balance -300 ml 120 ml 0 ml Intake Oral 120 ml 0 ml IV Total 500 ml Output Emesis 800 ml # Voids 0 0 # Bowel Movements 0 0 Result Diagram: 10/24/16 0519 10/24/16 0519 Imaging Last Impressions Abdomen/Pelvis CT 10/23/16 0903 Signed Impressions: Service Date/Time: Sunday, October 23, 2016 09:31 - CONCLUSION: 1. No acute abnormality to explain the patient's pain. 2. Atrophic kidneys with multiple parenchymal and suspected collecting system calcifications without obstruction. There are multiple low density lesions associated with each kidney which are poorly characterize on this unenhanced study but likely relate to cysts. 3. Pronounced coronary artery atherosclerotic calcifications. 4. Hiatal hernia. Papa Medina Jr., MD Objective Remarks General: No acute distress. Heart: Regular rate and rhythm. 2-3/6 murmur. Lungs: Clear to auscultation bilaterally. No wheezes, rales, or rhonchi. Breathing is nonlabored. Abdomen: Soft, nontender, nondistended. Extremities: No lower extremity edema. Psych: Alert and oriented. Procedures None Urinary Catheter: No Vascular Central Line Catheter: No A/P Problem List: (1) Nausea and vomiting ICD Code: R11.2 - Nausea with vomiting, unspecified Status: Acute (2) Sepsis ICD Code: A41.9 - Sepsis, unspecified organism (3) End stage renal failure on dialysis ICD Code: N18.6 - End stage renal failure on dialysis; Z99.2 - Dependence on renal dialysis Status: Chronic (4) Hyperlipidemia ICD Code: E78.5 - Hyperlipidemia Status: Acute (5) Schizophrenia ICD Code: F20.9 - Schizophrenia Status: Chronic (6) DM (diabetes mellitus) ICD Code: E11.9 - DM (diabetes mellitus) Status: Chronic (7) Leukocytosis ICD Code: D72.829 - Elevated white blood cell count, unspecified (8) Hypertension ICD Code: I10 - Hypertension Status: Acute Assessment and Plan 1. Sepsis: Patient presented with tachycardia, leukocytosis. Source is presumed to be abdominal. Continue Flagyl. IV fluids. Heart rate improved. 2. Nausea/vomiting/GI bleed: Appreciate gastroenterology recommendations. No further hematemesis reported. EGD rescheduled to tomorrow pending cardiology clearance. 3. Diabetes mellitus: Monitor Accu-Cheks and cover with sliding scale insulin. Continue Levemir. 4. Hypertension: Blood pressure improved. Restart metoprolol. Monitor BP. 5. Hyperlipidemia: Hold statin until symptoms improve. 6. Seizure disorder: Continue Depakote. 7. Anxiety/depression, schizophrenia: Continue Carli Wells. 8. End-stage renal disease: Hemodialysis per nephrology. 9. GERD: Continue PPI. 10. DVT prophylaxis: Heparin. Akhil Elliott MD Oct 24, 2016 13:46
[2016-10-24 15:32] VITALS: BP 116/61; PULSE 100; RESP 18; TEMP 97.5; O2SAT 99
--- NOTE | 2016-10-24 15:44 | RADRPT ---
EXAM DATE/TIME: 10/24/2016 14:37 [facility] COMPARISON: CHEST SINGLE AP, May 26, 2016, 6:23. INDICATIONS : Shortness of breath. MEDICAL HISTORY : Hypercholesterolemia. Hypertension. Hepatitis C. Hyperparathyroidism. GERD. Chest and abdominal pain. ESRD. Diabetes. Anemia. Squamous skin cancer. Schizophrenia. Bipolar. Depression. SURGICAL HISTORY : Tonsillectomy. Adenoidectomy. AV shunt. Dialysis. Skin cancer removal from forehead. ENCOUNTER: Subsequent ACUITY: 1 day PAIN SCORE: 0/10 LOCATION: Bilateral chest FINDINGS: A single AP erect portable view of the chest demonstrates the lungs to be symmetrically aerated witho ut evidence of mass, infiltrate or effusion. The heart size is at the upper limits of normal with no perihilar edema. Mild atherosclerotic changes are again noted in the aorta. There are multiple overl clotilde electrocardiogram leads. Osseous structures are intact. CONCLUSION: No acute cardiopulmonary disease. Ernst Arellano MD on October 24, 2016 at 15:41 Board Certified Radiologist. This report was verified electronically.
[2016-10-24] MEDS: FLUoxetine HCL 20 MG CAP PO SCH (19:48)
[2016-10-24] MEDS: INSULIN DETEMIR 100 UNITS/ML VIAL SQ SCH (19:51)
[2016-10-24 20:15] VITALS: BP 108/63; PULSE 113; RESP 18; TEMP 98.5; O2SAT 98
--- NOTE | 2016-10-24 20:58 | MB ---
cc: LLUVIA RICKS DATE OF CONSULTATION 10/24/16 HISTORY OF PRESENT ILLNESS This is a 56-year-old gentleman who was admitted to the hospital with abdominal pain, nausea and vomiting. He has a long rather complicated history including seizure disorder and schizophrenia. The patient is a rather poor historian. We have been asked to see him for risk assessment for EGD tomorrow. He was admitted to the hospital in April of this year for a femoral neck fracture. At that time, an echocardiogram was done revealing severe aortic stenosis as well as moderate to severe mitral regurgitation. There was some thought of aortic and mitral valve replacements, but this has not been accomplished. The patient is complaining now of abdominal pain, nausea and vomiting. He notes that in his vomitus that it is generally brown, but he specifically denied black vomitus but there is a note in the chart regarding for coffee ground emesis. The patient believes he may have thrown up blood. He does not complain of hematochezia or black stools. He does complain of some shortness of breath but no chest pain has been present. He has had no palpitations. His laboratory examination is significant for a hemoglobin of 12.1 over 36.1 which on admission was 13 over 40, platelet count is normal, white count is significantly elevated at 19,500. PAST MEDICAL HISTORY Significant for end-stage renal disease for which he is on dialysis. He notes that he is dialyzed three times a week and is faithful with his dialysis. His last creatinine was 7.18 with 5.67 on admission and a BUN of 104, potassium was 5.2. PHYSICAL EXAMINATION VITAL SIGNS: Blood pressure 120/70. NECK: There is no neck vein distension. LUNGS: Essentially clear. CARDIOVASCULAR: Exam reveals a 3/6 systolic murmur at the left sternal border as well as at the apex. ABDOMEN: Soft. There is no guarding or rebound. IMAGING STUDIES Chest x-ray is pending. CARDIOLOGY STUDIES His electrocardiogram shows sinus tachycardia and a right bundle branch block, significant left axis is also present with poor R-wave progression. We do note that on his prior echo his ejection fraction was normal at 55-60%. ASSESSMENT The patient has nausea and vomiting with significant white count elevation. There is a plan for EGD tomorrow. I think that this is acceptable pending the outcome of his chest x-ray so long as it does not show any gross evidence for failure and certainly none exists on physical exam. Following of resolution of his acute illness, we can reevaluate him for possible aortic and mitral valve replacements. MD KELLY Moise/ /2:51 PM /8:44 PM
[2016-10-25] VITALS (8 sets, daily range): BP systolic 94–118; BP diastolic 52–63; PULSE 72–102; RESP 16–22; TEMP 95.5–98; O2SAT 96–100
[2016-10-25] MEDS: INSULIN ASPART SUPPLEMENTAL SCALE SQ SCH ×4 (05:05→21:00)
[2016-10-25] MEDS: hydrOXYzine HCL 25 MG TAB PO SCH ×3 (05:05→18:00)
[2016-10-25] MEDS: SEVELAMER CARBONATE 800 MG TAB PO SCH ×3 (08:00→16:29)
[2016-10-25] MEDS: VITAMIN B CMPLX/VITC/FOLIC AC CAP PO SCH (08:42)
[2016-10-25] MEDS: CINACALCET HYDROCHLORIDE 30 MG TAB PO SCH (08:42)
[2016-10-25] MEDS: DIVALPROEX SODIUM E.R. 500 MG TAB PO SCH ×2 (08:42→21:13)
[2016-10-25] MEDS: PANTOPRAZOLE SOD 20 MG DELAYED RELEASE TAB PO SCH (08:42)
[2016-10-25] MEDS: ASCORBIC ACID 500 MG TAB PO SCH ×2 (08:42→21:00)
[2016-10-25] MEDS: ZIPRASIDONE HCL 80 MG CAP PO SCH ×2 (08:42→21:13)
[2016-10-25] MEDS: ASPIRIN 81 MG CHEW TAB CHEW SCH (08:42)
[2016-10-25] MEDS: CHOLECALCIFEROL (VIT D3) 1000 UNIT TAB PO SCH (08:43)
--- NOTE | 2016-10-25 12:04 | HHI.NPPN ---
Subjective General Problems: Anemia Renal Failure: Chronic, End Stage Renal Disease Interval History NPO for EGD today. Cardiology has evaluated for clearance. (Zahra Aguilar) Review of Systems Gastrointestinal Gastrointestinal: Nausea & Vomiting (Zahra Aguilar) Objective Data Data Vital Signs Date Time Temp Pulse Resp B/P (MAP) Pulse Ox O2 Delivery O2 Flow Rate FiO2 10/25/16 08:00 97.5 84 20 109/60 (76) 10/25/16 05:00 102 10/25/16 04:15 97.8 88 18 94/54 (67) 99 10/25/16 00:10 98.0 98 17 102/63 (76) 98 10/24/16 20:52 Nasal Cannula 2.00 10/24/16 20:15 98.5 113 18 108/63 (78) 98 10/24/16 15:32 97.5 100 18 116/61 (79) 99 (Zahra Aguilar) -: 10/24/16 0519 10/24/16 0519 Imaging Last Impressions Chest X-Ray 10/24/16 0000 Signed Impressions: Service Date/Time: September 14:37 - CONCLUSION: No acute cardiopulmonary disease. Ernst Arellano MD Abdomen/Pelvis CT 10/23/16 0903 Signed Impressions: Service Date/Time: Sunday, October 23, 2016 09:31 - CONCLUSION: 1. No acute abnormality to explain the patient's pain. 2. Atrophic kidneys with multiple parenchymal and suspected collecting system calcifications without obstruction. There are multiple low density lesions associated with each kidney which are poorly characterize on this unenhanced study but likely relate to cysts. 3. Pronounced coronary artery atherosclerotic calcifications. 4. Hiatal hernia. Papa Medina Jr., MD (Zahra Aguilar) Physical Exam General Appearance: Well Developed, Well Nourished, No Acute Distress, Comfortable (Zahra Aguilar) Throat Throat Exam: Oral Mucosa Gracey & Moist (Zahra Aguilar) Pulmonary Resp Exam: Clear Bilaterally, Breath Sounds Equal (Zahra Aguilar) Cardiology CV Exam: Regular, Normal Sinus Rhythm, Murmur (Zahra Aguilar) Gastrointestinal/Abdomen GI Exam: Soft, Non-Tender, Bowel Sounds Present, Positive Bowel Movement (Zahra Aguilar) Musculoskeletal MS Exam: Joints Intact, Normal Gait, Normal Tone, Good Strength (Zahra Aguilar) Integumentary Skin Exam: Clear, Warm, Dry, Intact (Zahra Aguilar) Extremeties Extremities Exam: No Edema, Pedal Pulses Palpable Extremeties Remarks AVF left arm, + thrill/bruit (Zahra Aguilar) Neurologic Neuro Exam: Alert, Awake, Oriented, Speech Clear, Moving All Extremities (Zahra Aguilar) Psychiatric Psych Exam: Appropriate Responses (Zahra Aguilar) Assessment/Plan Discussed Condition With: Patient Assessment Summary: Anemia of CKD, Hypertension, End Stage Renal Disease Problem List: (1) End stage renal failure on dialysis ICD Codes: N18.6 - End stage renal failure on dialysis; Z99.2 - Dependence on renal dialysis Status: Chronic Plan: He had 2L UF yesterday Continue TTS HD per typical schedule, due tomorrow repeat BMP has beenordered he has functioning AVF for HD use; avoid Left arm procedures avoid IVF, gadolinium is contraindicated no dietary protein restriction (2) Nausea and vomiting ICD Codes: R11.2 - Nausea with vomiting, unspecified Status: Acute Plan: CT abd/pelvis was negative symptoms resolved due for EGD today GI following (3) DM (diabetes mellitus) ICD Codes: E11.9 - DM (diabetes mellitus) Status: Chronic Plan: monitor blood glucose, goal 140-180 mg/dL insulin as needed (4) Anemia ICD Codes: D64.9 - Anemia Status: Chronic Plan: Hb stable epogen not required, monitor for changes (5) Hypertension ICD Codes: I10 - Hypertension Status: Acute Plan: BP stable continue current medications (6) Aortic valve stenosis, critical ICD Codes: I35.0 - Nonrheumatic aortic (valve) stenosis Status: Acute Plan: AV and MV stenosis cardiology has evaluated, recommends replacement he was cleared for procedure today (7) Metabolic bone disease ICD Codes: E88.9 - Metabolic disorder, unspecified; M90.80 - Osteopathy in diseases classified elsewhere, unspecified site Status: Acute Plan: continue renvela, increase to 3 tabs with meals (Zahra Aguilar) Plan patient was seen and examined. Agree with above assessment and plan. (Felix Andersen MD) Zahra Aguilar Oct 25, 2016 12:04 Felix Andersen MD Oct 25, 2016 15:19
[2016-10-25] MEDS: HEPARIN SODIUM - SQ 10,000 UNITS/ML VIAL SQ SCH (12:59)
[2016-10-25] MEDS ORDERED: PROPOFOL 200 MG/20 ML AMP IV ONE (13:53)
[2016-10-25] MEDS: PANTOPRAZOLE SOD 40 MG DELAYED RELEASE TAB PO SCH ×2 (14:00→18:00)
[2016-10-25] MEDS ORDERED: DO NOT ADM ANY ANTICOAGULANT DRUGS PRN (14:05)
--- NOTE | 2016-10-25 14:14 | HHI.GIFU ---
Subjective Remarks EGD with biopsy note Indication: nausea meds: MAC Findings: Distal esophagus severe esophagitis, with circumferential ulceration. Biopsy taken Stomach: mild gastritis. Biopsy taken Duodenum: Normal Impression: Severe distal esophagitis. Recommendation: protonix drip but IV protonix is short supply. will give protonix 40mg PO Q6H Objective Vitals I&O Vital Signs Date Time Temp Pulse Resp B/P (MAP) Pulse Ox O2 Delivery O2 Flow Rate FiO2 10/25/16 12:00 95.5 72 16 101/52 (68) 99 10/25/16 08:37 84 10/25/16 08:37 Room Air 10/25/16 08:00 97.5 84 20 109/60 (76) 10/25/16 05:00 102 10/25/16 04:15 97.8 88 18 94/54 (67) 99 10/25/16 00:10 98.0 98 17 102/63 (76) 98 10/24/16 20:52 Nasal Cannula 2.00 10/24/16 20:15 98.5 113 18 108/63 (78) 98 10/24/16 15:32 97.5 100 18 116/61 (79) 99 I/O 10/24/16 10/24/16 10/24/16 10/25/16 10/25/16 10/25/16 06:59 14:59 22:59 06:59 14:59 22:59 Intake Total 0 ml 340 ml 0 ml Output Total 150 ml Balance 0 ml 340 ml -150 ml Intake Oral 0 ml 340 ml 0 ml Output Urine Total 150 ml # Voids 0 0 # Bowel Movements 0 0 Laboratory Date/Time Source Procedure Growth Status 10/23/16 16:00 Blood Peripheral Aerobic Blood Culture - Preliminary NO GROWTH IN 2 DAYS Resulted 10/23/16 16:00 Blood Peripheral Anaerobic Blood Culture - Preliminary NO GROWTH IN 2 DAYS Resulted Physical Exam HEENT: Pupils round and reactive to light; normocephalic; atraumatic; no jaundice. Throat is clear. NECK: Neck is supple, no JVD, no lymphadenopathy. CHEST: Chest is clear to auscultation and percussion. CARDIAC: Regular rate and rhythm with no murmur gallop or rubs. ABDOMEN: Soft, nondistended, nontender; no hepatosplenomegaly; bowel sounds are present in all four quadrants. EXTREMITIES: No clubbing, cyanosis, or edema. Assessment and Plan Plan ASSESSMENT - UGIB - n/v with projectil coffeeground emesis witnessed by nursing staff, pt says he has red blood in emesis and black stool not anemic at this time. Last EGD 04/2016 showed esophagitis, gastritis, duodenitis path benign. We did see him in [facility] at that time for ileus. - High risk for sedation according to anesthesia with valvular heart disease and low sats on room air in the recovery room - EGD on 10/25 with biopsy of distal esophagus and gastric antrum. Severe distal esophagitis, with circumferential ulceration. PLAN - Protonix 40mg PO q6h - full liquid diet - further recommendations as the case develops Myles Escudero MD Oct 25, 2016 14:14
--- NOTE | 2016-10-25 15:47 | ECHRPT ---
Indication: HEART FAILURE CONCLUSIONS Normal left ventricular size. Mild concentric left ventricular hypertrophy. The left ventricular systolic function is hyperdynamic with an estimated ejection fraction in the ra nge of 65- 70%. The left atrial size is mildly dilated. Severe mitral annular calcification. Severe aortic valve stenosis. Mild aortic valve regurgitation. Aortic valve area is 0.68 cm Aortic valve mean gradient is 75 mmHg Max gradient is 118 mmHg AV V max 543 cm/s There is trace- mild tricuspid valve regurgitation. There is estimated moderate pulmonary hypertension present ( 56 mmHg). BP: 116 / 61 HR: 113 Rhythm: Sinus MEASUREMENTS (Male / Female) Normal Values Technical Quality:Good 2D ECHO LV Diastolic Diameter PLAX 5.3 cm 4.2 - 5.9 / 3.9 - 5.3 cm LV Systolic Diameter PLAX 3.7 cm IVS Diastolic Thickness 1.4 cm 0.6 - 1.0 / 0.6 - 0.9 cm LVPW Diastolic Thickness 1.1 cm 0.6 - 1.0 / 0.6 - 0.9 cm LV Relative Wall Thickness 0.5 LVOT Diameter 2.0 cm LA Systolic Diameter LX 4.5 cm 3.0 - 4.0 / 2.7 - 3.8 cm DOPPLER AV Peak Velocity 543.0 cm/s AV Peak Gradient 117.9 mmHg AV Mean Gradient 75.0 mmHg AV Velocity Time Integral 122.0 cm AI Peak Velocity 439.0 cm/s AI Peak Gradient 77.1 mmHg AI Pressure Half Time 424.5 ms LVOT Peak Velocity 136.7 cm/s LVOT Peak Gradient 7.5 mmHg LVOT Velocity Time Integral 31.7 cm LVOT Cardiac Index 5125.3 cm/minm AV Area Cont Eq vti 0.8 cm AV Area Cont Eq pk 0.8 cm MV Peak Velocity 258.0 cm/s MV Peak Gradient 26.6 mmHg MV Mean Velocity 165.0 cm/s MV Mean Gradient 13.0 mmHg MV Area PHT 3.6 cm Mitral E Point Velocity 198.0 cm/s Mitral A Point Velocity 224.0 cm/s Mitral E to A Ratio 0.9 TR Peak Velocity 339.0 cm/s TR Peak Gradient 46.0 mmHg FINDINGS LEFT VENTRICLE Normal left ventricular size. Mild concentric left ventricular hypertrophy. The left ventricular systolic function is hyperdynamic with an estimated ejection fraction in the ra nge of 65- 70%. RIGHT VENTRICLE Normal right ventricular size and systolic function. LEFT ATRIUM The left atrial size is mildly dilated. RIGHT ATRIUM The right atrial size is normal. ATRIAL SEPTUM Normal atrial septal thickness without atrial level shunting by limited color doppler interrogation. AORTA The aortic root and proximal ascending aorta are normal in size on limited imaging. MITRAL VALVE Severe mitral annular calcification. Mitral valve mean gradient is 13 mmHg. AORTIC VALVE Severe aortic valve stenosis. Mild aortic valve regurgitation. Aortic valve area is 0.68 cm Aortic valve mean gradient is 75 mmHg Max gradient is 118 mmHg AV V max 543 cm/s TRICUSPID VALVE There is trace- mild tricuspid valve regurgitation. There is estimated moderate pulmonary hypertension present ( 56 mmHg). PULMONARY VALVE The pulmonary valve is not well visualized. VESSELS The inferior vena cava is normal in size. PERICARDIUM No pericardial effusion. Savanah New MD, FACC (Electronically Signed) Final Date:25 October 2016 15:45
--- NOTE | 2016-10-25 16:08 | HHI.PR ---
Subjective Remarks Osseous/vomiting, GI bleed. Patient just returned from EGD. Was found to have severe esophagitis. He states that his nausea and vomiting have improved. No specific complaints at this time. Objective Vitals Vital Signs Date Time Temp Pulse Resp B/P (MAP) Pulse Ox O2 Delivery O2 Flow Rate FiO2 10/25/16 12:00 95.5 72 16 101/52 (68) 99 10/25/16 08:37 84 10/25/16 08:37 Room Air 10/25/16 08:00 97.5 84 20 109/60 (76) 10/25/16 05:00 102 10/25/16 04:15 97.8 88 18 94/54 (67) 99 10/25/16 00:10 98.0 98 17 102/63 (76) 98 10/24/16 20:52 Nasal Cannula 2.00 10/24/16 20:15 98.5 113 18 108/63 (78) 98 I/O 10/24/16 10/24/16 10/24/16 10/25/16 10/25/16 10/25/16 07:00 15:00 23:00 07:00 15:00 23:00 Intake Total 0 ml 100 ml 240 ml 0 ml 200 ml Output Total 150 ml Balance 0 ml 100 ml 240 ml -150 ml 200 ml Intake Oral 0 ml 100 ml 240 ml 0 ml Other 200 ml Output Urine Total 150 ml # Voids 0 0 0 # Bowel Movements 0 0 Result Diagram: 10/24/16 0519 10/24/16 0519 Imaging Last Impressions Chest X-Ray 10/24/16 0000 Signed Impressions: Service Date/Time: September 14:37 - CONCLUSION: No acute cardiopulmonary disease. Ernst Arellano MD Abdomen/Pelvis CT 10/23/16 0903 Signed Impressions: Service Date/Time: Sunday, October 23, 2016 09:31 - CONCLUSION: 1. No acute abnormality to explain the patient's pain. 2. Atrophic kidneys with multiple parenchymal and suspected collecting system calcifications without obstruction. There are multiple low density lesions associated with each kidney which are poorly characterize on this unenhanced study but likely relate to cysts. 3. Pronounced coronary artery atherosclerotic calcifications. 4. Hiatal hernia. Papa Medina Jr., MD Objective Remarks General: No acute distress. Heart: Regular rate and rhythm. 2-3/6 murmur. Lungs: Clear to auscultation bilaterally. No wheezes, rales, or rhonchi. Breathing is nonlabored. Abdomen: Soft, nontender, nondistended. Extremities: No lower extremity edema. Psych: Alert and oriented. Procedures None Urinary Catheter: No Vascular Central Line Catheter: No A/P Problem List: (1) Nausea and vomiting ICD Code: R11.2 - Nausea with vomiting, unspecified Status: Acute (2) Sepsis ICD Code: A41.9 - Sepsis, unspecified organism (3) End stage renal failure on dialysis ICD Code: N18.6 - End stage renal failure on dialysis; Z99.2 - Dependence on renal dialysis Status: Chronic (4) Hyperlipidemia ICD Code: E78.5 - Hyperlipidemia Status: Acute (5) Schizophrenia ICD Code: F20.9 - Schizophrenia Status: Chronic (6) DM (diabetes mellitus) ICD Code: E11.9 - DM (diabetes mellitus) Status: Chronic (7) Leukocytosis ICD Code: D72.829 - Elevated white blood cell count, unspecified (8) Hypertension ICD Code: I10 - Hypertension Status: Acute Assessment and Plan 1. Sepsis: Patient presented with tachycardia, leukocytosis. Source is presumed to be abdominal. Continue Flagyl. IV fluids. Heart rate improved. 2. Nausea/vomiting/GI bleed: Appreciate gastroenterology recommendations. No further hematemesis reported. EGD showed severe esophagitis. Continue Protonix 40 mg every 6 hours per GI recommendations (GI recommended Protonix drip, but IV Protonix is apparently in short supply currently). 3. Diabetes mellitus: Monitor Accu-Cheks and cover with sliding scale insulin. Continue Levemir. Glucose is well controlled. 4. Hypertension: Blood pressure is borderline low. Metoprolol on hold. Monitor BP. 5. Hyperlipidemia: Hold statin until symptoms improve. 6. Seizure disorder: Continue Depakote. 7. Anxiety/depression, schizophrenia: Continue Carli Wells. 8. End-stage renal disease: Hemodialysis per nephrology (Friday// Friday). 9. GERD: Continue PPI. 10. DVT prophylaxis: Heparin. Akhil Elliott MD Oct 25, 2016 16:08
[2016-10-25] MEDS: INSULIN DETEMIR 100 UNITS/ML VIAL SQ SCH (21:00)
[2016-10-25] MEDS: FLUoxetine HCL 20 MG CAP PO SCH (21:14)
[2016-10-25 22:02] LABS: AUTOMATED NEUTROPHIL # 6.4 TH/MM3 (1.8-7.7); BASOPHIL # 0.1 TH/MM3 (0-0.2); BASOPHIL % 0.6 % (0.0-2.0); EOSINOPHIL # 0.1 TH/MM3 (0-0.4); EOSINOPHIL % 1.2 % (0.0-4.0); HEMATOCRIT 32.6 % (39.0-51.0); HEMO FLAGS DIFF FINAL; LYMPH % 21.7 % (9.0-44.0); LYMPHOCYTE # 2.1 TH/MM3 (1.0-4.8); MEAN CELL VOLUME 94.6 FL (80.0-100.0); MEAN CORPUSCULAR HEMOGLOBIN 30.7 PG (27.0-34.0); MEAN CORPUSCULAR HGB CONC 32.5 % (32.0-36.0); MONO % 11.2 % (0.0-8.0); NEUT % 65.3 % (16.0-70.0); PLATELET COUNT 271 TH/MM3 (150-450); RED BLOOD COUNT 3.45 MIL/MM3 (4.50-5.90); WHITE BLOOD COUNT 9.9 TH/MM3 (4.0-11.0)
[2016-10-25 22:44] LABS: BICARBONATE 27.6 MEQ/L (21.0-32.0); POTASSIUM 4.1 MEQ/L (3.5-5.1)
[2016-10-26] VITALS (7 sets, daily range): BP systolic 104–142; BP diastolic 56–81; PULSE 88–109; RESP 16–22; TEMP 96.9–98.4; O2SAT 96–100
[2016-10-26] MEDS: PANTOPRAZOLE SOD 40 MG DELAYED RELEASE TAB PO SCH ×3 (00:18→20:28)
[2016-10-26] MEDS: HEPARIN SODIUM - SQ 10,000 UNITS/ML VIAL SQ SCH ×2 (00:18→13:07)
[2016-10-26] MEDS: hydrOXYzine HCL 25 MG TAB PO SCH ×4 (06:00→20:29)
[2016-10-26] MEDS: INSULIN ASPART SUPPLEMENTAL SCALE SQ SCH ×4 (07:00→20:32)
[2016-10-26 07:25] LABS: AUTOMATED NEUTROPHIL # 5.4 TH/MM3 (1.8-7.7); BASOPHIL # 0.1 TH/MM3 (0-0.2); BASOPHIL % 0.8 % (0.0-2.0); EOSINOPHIL # 0.2 TH/MM3 (0-0.4); EOSINOPHIL % 1.9 % (0.0-4.0); HEMATOCRIT 36.6 % (39.0-51.0); HEMO FLAGS DIFF FINAL; LYMPHOCYTE # 1.5 TH/MM3 (1.0-4.8); MEAN CELL VOLUME 93.9 FL (80.0-100.0); MEAN CORPUSCULAR HEMOGLOBIN 30.8 PG (27.0-34.0); MEAN CORPUSCULAR HGB CONC 32.8 % (32.0-36.0); MONO % 11.5 % (0.0-8.0); NEUT % 66.8 % (16.0-70.0); PLATELET COUNT 257 TH/MM3 (150-450); RED CELL DISTRIBUTION WIDTH 16.1 % (11.6-17.2); WHITE BLOOD COUNT 8.1 TH/MM3 (4.0-11.0)
[2016-10-26 07:50] LABS: BICARBONATE 25.4 MEQ/L (21.0-32.0); POTASSIUM 4.5 MEQ/L (3.5-5.1)
[2016-10-26] MEDS: ZIPRASIDONE HCL 80 MG CAP PO SCH ×2 (09:41→20:28)
[2016-10-26] MEDS: DIVALPROEX SODIUM E.R. 500 MG TAB PO SCH ×2 (09:41→20:28)
[2016-10-26] MEDS: CHOLECALCIFEROL (VIT D3) 1000 UNIT TAB PO SCH (09:43)
[2016-10-26] MEDS: ASPIRIN 81 MG CHEW TAB CHEW SCH (09:43)
[2016-10-26] MEDS: ASCORBIC ACID 500 MG TAB PO SCH ×2 (09:43→20:28)
[2016-10-26] MEDS: VITAMIN B CMPLX/VITC/FOLIC AC CAP PO SCH (09:43)
[2016-10-26] MEDS: SEVELAMER CARBONATE 800 MG TAB PO SCH ×3 (09:43→20:28)
[2016-10-26] MEDS: CINACALCET HYDROCHLORIDE 30 MG TAB PO SCH (09:45)
--- NOTE | 2016-10-26 10:05 | HHI.GIFU ---
Subjective Remarks Patient in bed eating breakfast, No nausea, vomiting, hematemesis, abd pain or melena reported Objective Vitals I&O Vital Signs Date Time Temp Pulse Resp B/P (MAP) Pulse Ox O2 Delivery O2 Flow Rate FiO2 10/26/16 08:00 96.9 94 18 139/81 (100) 100 10/26/16 00:00 97.9 108 22 119/65 (83) 100 10/25/16 20:00 97.8 79 22 118/60 (79) 100 10/25/16 18:49 Room Air 10/25/16 15:00 98.4 86 15 98/57 (71) 98 10/25/16 14:45 81 15 99/60 (73) 100 10/25/16 14:30 84 15 100/60 (73) 100 10/25/16 14:15 80 16 106/61 (76) 99 10/25/16 14:05 98.2 77 17 97/57 (70) 100 10/25/16 13:10 96 10/25/16 12:00 95.5 72 16 101/52 (68) 99 I/O 10/25/16 10/25/16 10/25/16 10/26/16 10/26/16 10/26/16 07:00 15:00 23:00 07:00 15:00 23:00 Intake Total 0 ml 200 ml 240 ml 240 ml Output Total 150 ml 0 ml 400 ml Balance -150 ml 200 ml 240 ml -160 ml Intake Oral 0 ml 240 ml 240 ml IV Total 0 ml Other 200 ml Output Urine Total 150 ml 0 ml 400 ml Laboratory Laboratory Tests Test 10/25/16 21:09 10/26/16 06:30 10/26/16 06:50 White Blood Count 9.9 8.1 Red Blood Count 3.45 3.90 Hemoglobin 10.6 12.0 Hematocrit 32.6 36.6 Mean Corpuscular Volume 94.6 93.9 Mean Corpuscular Hemoglobin 30.7 30.8 Mean Corpuscular Hemoglobin Concent 32.5 32.8 Red Cell Distribution Width 16.0 16.1 Platelet Count 271 257 Mean Platelet Volume 8.5 8.6 Neutrophils (%) (Auto) 65.3 66.8 Lymphocytes (%) (Auto) 21.7 19.0 Monocytes (%) (Auto) 11.2 11.5 Eosinophils (%) (Auto) 1.2 1.9 Basophils (%) (Auto) 0.6 0.8 Neutrophils # (Auto) 6.4 5.4 Lymphocytes # (Auto) 2.1 1.5 Monocytes # (Auto) 1.1 0.9 Eosinophils # (Auto) 0.1 0.2 Basophils # (Auto) 0.1 0.1 CBC Comment DIFF FINAL DIFF FINAL Differential Comment Blood Urea Nitrogen 96 104 Creatinine 7.15 7.85 Random Glucose 74 112 Calcium Level 9.8 9.9 Sodium Level 133 132 Potassium Level 4.1 4.5 Chloride Level 90 88 Carbon Dioxide Level 27.6 25.4 Anion Gap 15 19 Estimat Glomerular Filtration Rate 8 7 Date/Time Source Procedure Growth Status 10/23/16 16:00 Blood Peripheral Aerobic Blood Culture - Preliminary NO GROWTH IN 2 DAYS Resulted 10/23/16 16:00 Blood Peripheral Anaerobic Blood Culture - Preliminary NO GROWTH IN 2 DAYS Resulted Imaging Last Impressions Chest X-Ray 10/24/16 0000 Signed Impressions: Service Date/Time: September 14:37 - CONCLUSION: No acute cardiopulmonary disease. Ernst Arellano MD Abdomen/Pelvis CT 10/23/16 0903 Signed Impressions: Service Date/Time: Sunday, October 23, 2016 09:31 - CONCLUSION: 1. No acute abnormality to explain the patient's pain. 2. Atrophic kidneys with multiple parenchymal and suspected collecting system calcifications without obstruction. There are multiple low density lesions associated with each kidney which are poorly characterize on this unenhanced study but likely relate to cysts. 3. Pronounced coronary artery atherosclerotic calcifications. 4. Hiatal hernia. Papa Medina Jr., MD Physical Exam HEENT: Pupils round and reactive to light; normocephalic; atraumatic; no jaundice. NECK: Neck is supple, no JVD, no lymphadenopathy. CHEST: Chest is clear to auscultation and percussion. CARDIAC: Regular rate and rhythm with no murmur gallop or rubs. ABDOMEN: Soft, nondistended, nontender; no hepatosplenomegaly; bowel sounds are present in all four quadrants. EXTREMITIES: No clubbing, cyanosis, or edema. Assessment and Plan Plan ASSESSMENT - UGIB - n/v with projectile coffee-ground emesis witnessed by nursing staff- No more N/V or hematemesis. HH stable 12.0/36.6 S/P EGD on 10/25 with biopsy of distal esophagus and gastric antrum. Severe distal esophagitis, with circumferential ulceration. BX pending EGD 04/2016 showed esophagitis, gastritis, duodenitis path benign. [place] [facility] [place]. - Sepsis- abx - End-stage renal disease: Hemodialysis per nephrology (Friday// Friday). PLAN - Renal diet - Protonix 40mg BID - Await bx - Patient seen and examined by dr. Escudero and myself and this note is written on his behalf Jeremiah Hector Oct 26, 2016 10:04
--- NOTE | 2016-10-26 10:42 | HHI.NPPN ---
Subjective General Problems: Anemia Renal Failure: Chronic, End Stage Renal Disease Additional Remarks Patient is alert, no SOB, feeling well. Review of Systems Gastrointestinal Gastrointestinal: Nausea & Vomiting Objective Data Data Vital Signs Date Time Temp Pulse Resp B/P (MAP) Pulse Ox O2 Delivery O2 Flow Rate FiO2 10/26/16 08:00 96.9 94 18 139/81 (100) 100 10/26/16 00:00 97.9 108 22 119/65 (83) 100 10/25/16 20:00 97.8 79 22 118/60 (79) 100 10/25/16 18:49 Room Air 10/25/16 15:00 98.4 86 15 98/57 (71) 98 10/25/16 14:45 81 15 99/60 (73) 100 10/25/16 14:30 84 15 100/60 (73) 100 10/25/16 14:15 80 16 106/61 (76) 99 10/25/16 14:05 98.2 77 17 97/57 (70) 100 10/25/16 13:10 96 10/25/16 12:00 95.5 72 16 101/52 (68) 99 -: 10/26/16 0650 10/26/16 0630 Physical Exam General Appearance: No Acute Distress, Comfortable Throat Throat Exam: Oral Mucosa [place] & Moist Pulmonary Resp Exam: Clear Bilaterally, Breath Sounds Equal Cardiology CV Exam: Regular, Normal Sinus Rhythm, Murmur Gastrointestinal/Abdomen GI Exam: Soft, Non-Tender, Bowel Sounds Present, Positive Bowel Movement Musculoskeletal MS Exam: Joints Intact, Normal Gait, Normal Tone, Good Strength Integumentary Skin Exam: Clear, Warm, Dry, Intact Extremeties Extremities Exam: Trace Edema Neurologic Neuro Exam: Alert, Awake, Oriented Assessment/Plan Discussed Condition With: Patient Assessment Summary: Anemia of CKD, Hypertension, End Stage Renal Disease Problem List: (1) End stage renal failure on dialysis ICD Codes: N18.6 - End stage renal failure on dialysis; Z99.2 - Dependence on renal dialysis Status: Chronic Plan: Continue TTS HD per typical schedule. he has functioning AVF for HD use; avoid Left arm procedures avoid IVF, gadolinium is contraindicated no dietary protein restriction. HD today, remove fluid as tolerated. (2) Nausea and vomiting ICD Codes: R11.2 - Nausea with vomiting, unspecified Status: Acute Plan: CT abd/pelvis was negative symptoms resolved due for EGD today GI following (3) DM (diabetes mellitus) ICD Codes: E11.9 - DM (diabetes mellitus) Status: Chronic Plan: monitor blood glucose, goal 140-180 mg/dL insulin as needed (4) Anemia ICD Codes: D64.9 - Anemia Status: Chronic Plan: Hb stable epogen not required, monitor for changes (5) Hypertension ICD Codes: I10 - Hypertension Status: Acute Plan: BP stable continue current medications (6) Aortic valve stenosis, critical ICD Codes: I35.0 - Nonrheumatic aortic (valve) stenosis Status: Acute Plan: AV and MV stenosis cardiology has evaluated, recommends replacement he was cleared for procedure today (7) Metabolic bone disease ICD Codes: E88.9 - Metabolic disorder, unspecified; M90.80 - Osteopathy in diseases classified elsewhere, unspecified site Status: Acute Plan: continue renvela, increase to 3 tabs with meals Homa Mazariegos MD Oct 26, 2016 10:42
--- NOTE | 2016-10-26 13:09 | HHI.PR ---
Subjective Remarks Follow up nausea/vomiting/esophagitis. Patient states that he feels better today. No nausea/vomiting. Denies chest pain, dyspnea. Objective Vitals Vital Signs Date Time Temp Pulse Resp B/P (MAP) Pulse Ox O2 Delivery O2 Flow Rate FiO2 10/26/16 12:00 97.0 88 18 142/73 (96) 100 10/26/16 08:00 96.9 94 18 139/81 (100) 100 10/26/16 00:00 97.9 108 22 119/65 (83) 100 10/25/16 20:00 97.8 79 22 118/60 (79) 100 10/25/16 18:49 Room Air 10/25/16 15:00 98.4 86 15 98/57 (71) 98 10/25/16 14:45 81 15 99/60 (73) 100 10/25/16 14:30 84 15 100/60 (73) 100 10/25/16 14:15 80 16 106/61 (76) 99 10/25/16 14:05 98.2 77 17 97/57 (70) 100 10/25/16 13:10 96 I/O 10/25/16 10/25/16 10/25/16 10/26/16 10/26/16 10/26/16 07:00 15:00 23:00 07:00 15:00 23:00 Intake Total 0 ml 200 ml 240 ml 240 ml Output Total 150 ml 0 ml 400 ml Balance -150 ml 200 ml 240 ml -160 ml Intake Oral 0 ml 240 ml 240 ml IV Total 0 ml Other 200 ml Output Urine Total 150 ml 0 ml 400 ml Result Diagram: 10/26/16 0650 10/26/16 0630 Imaging Last Impressions Chest X-Ray 10/24/16 0000 Signed Impressions: Service Date/Time: September 14:37 - CONCLUSION: No acute cardiopulmonary disease. Ernst Arellano MD Abdomen/Pelvis CT 10/23/16 0903 Signed Impressions: Service Date/Time: Sunday, October 23, 2016 09:31 - CONCLUSION: 1. No acute abnormality to explain the patient's pain. 2. Atrophic kidneys with multiple parenchymal and suspected collecting system calcifications without obstruction. There are multiple low density lesions associated with each kidney which are poorly characterize on this unenhanced study but likely relate to cysts. 3. Pronounced coronary artery atherosclerotic calcifications. 4. Hiatal hernia. Papa Medina Jr., MD Objective Remarks General: No acute distress. Heart: Regular rate and rhythm. 2-3/6 murmur. Lungs: Clear to auscultation bilaterally. No wheezes, rales, or rhonchi. Breathing is nonlabored. Abdomen: Soft, nontender, nondistended. Extremities: No lower extremity edema. Psych: Alert and oriented. Procedures 10/25/16 EGD Urinary Catheter: No Vascular Central Line Catheter: No A/P Problem List: (1) Nausea and vomiting ICD Code: R11.2 - Nausea with vomiting, unspecified Status: Acute (2) Sepsis ICD Code: A41.9 - Sepsis, unspecified organism (3) End stage renal failure on dialysis ICD Code: N18.6 - End stage renal failure on dialysis; Z99.2 - Dependence on renal dialysis Status: Chronic (4) Hyperlipidemia ICD Code: E78.5 - Hyperlipidemia Status: Acute (5) Schizophrenia ICD Code: F20.9 - Schizophrenia Status: Chronic (6) DM (diabetes mellitus) ICD Code: E11.9 - DM (diabetes mellitus) Status: Chronic (7) Leukocytosis ICD Code: D72.829 - Elevated white blood cell count, unspecified (8) Hypertension ICD Code: I10 - Hypertension Status: Acute Assessment and Plan 1. Sepsis: Patient presented with tachycardia, leukocytosis. Source is presumed to be abdominal. Continue Flagyl. IV fluids. Heart rate improved. Leukocytosis has resolved. 2. Nausea/vomiting/GI bleed: Appreciate gastroenterology recommendations. No further hematemesis reported. EGD showed severe esophagitis. Protonix 40mg BID. Advanced to renal diet. 3. Diabetes mellitus: Monitor Accu-Cheks and cover with sliding scale insulin. Continue Levemir. Glucose is well controlled. 4. Hypertension: Restart metoprolol. Monitor BP. 5. Hyperlipidemia: Hold statin until symptoms improve. 6. Seizure disorder: Continue Depakote. 7. Anxiety/depression, schizophrenia: Continue Prozac, Geodon. 8. End-stage renal disease: Hemodialysis per nephrology (Friday// Friday). 9. GERD: Continue PPI. 10. DVT prophylaxis: Heparin. Discharge Planning Anticipate discharge home soon, when cleared by GI, unless cardiology requests further evaluation of valves prior to discharge. Akhil Elliott MD Oct 26, 2016 13:09
[2016-10-26] MEDS ORDERED: PILL SPLITTER OTHER PRN (13:15)
[2016-10-26] MEDS: METOPROLOL TARTRATE 25 MG TAB PO SCH ×2 (14:00→20:29)
[2016-10-26] MEDS: ALBUMIN HUMAN 25% 25 GM/100 ML BAGP IV PRN (14:55)
[2016-10-26] MEDS: FLUoxetine HCL 20 MG CAP PO SCH (20:28)
[2016-10-26] MEDS: INSULIN DETEMIR 100 UNITS/ML VIAL SQ SCH (20:29)
[2016-10-27] VITALS: BP 103/55; PULSE 105; RESP 16; TEMP 98; O2SAT 99
[2016-10-27] MEDS: hydrOXYzine HCL 25 MG TAB PO SCH ×3 (00:24→11:52)
[2016-10-27] MEDS: HEPARIN SODIUM - SQ 10,000 UNITS/ML VIAL SQ SCH ×2 (00:24→11:51)
[2016-10-27 04:00] VITALS: BP 102/59; PULSE 93; RESP 16; TEMP 97; O2SAT 99
[2016-10-27] MEDS: INSULIN ASPART SUPPLEMENTAL SCALE SQ SCH ×2 (06:16→11:00)
[2016-10-27 07:22] VITALS: BP 110/68; PULSE 84; RESP 17; TEMP 97.6; O2SAT 100
[2016-10-27] MEDS: METOPROLOL TARTRATE 25 MG TAB PO SCH (09:18)
[2016-10-27] MEDS: CINACALCET HYDROCHLORIDE 30 MG TAB PO SCH (09:19)
[2016-10-27] MEDS: PANTOPRAZOLE SOD 40 MG DELAYED RELEASE TAB PO SCH (09:19)
[2016-10-27] MEDS: ZIPRASIDONE HCL 80 MG CAP PO SCH (09:19)
[2016-10-27] MEDS: ASPIRIN 81 MG CHEW TAB CHEW SCH (09:19)
[2016-10-27] MEDS: SEVELAMER CARBONATE 800 MG TAB PO SCH ×2 (09:20→11:52)
[2016-10-27] MEDS: ASCORBIC ACID 500 MG TAB PO SCH (09:20)
[2016-10-27] MEDS: VITAMIN B CMPLX/VITC/FOLIC AC CAP PO SCH (09:20)
[2016-10-27] MEDS: CHOLECALCIFEROL (VIT D3) 1000 UNIT TAB PO SCH (09:20)
[2016-10-27] MEDS: DIVALPROEX SODIUM E.R. 500 MG TAB PO SCH (09:20)
--- NOTE | 2016-10-27 10:43 | HHI.GIFU ---
Subjective Remarks Patient feels fine now. He wants to have pulled pork sandwich. He has no dysphagia or heartburn. He has been on high dose PPI for a few days now. He has severe esophagitis probably from GERD. He also has renal disease. No abdominal pain. His voice is raspy and weak. Objective Vitals I&O Vital Signs Date Time Temp Pulse Resp B/P (MAP) Pulse Ox O2 Delivery O2 Flow Rate FiO2 10/27/16 07:22 97.6 84 17 110/68 (82) 100 10/27/16 04:00 97.0 93 16 102/59 (73) 99 10/27/16 00:00 98.0 105 16 103/55 (71) 99 10/26/16 20:30 109 10/26/16 20:00 98.4 109 18 109/56 (73) 96 10/26/16 18:45 97.6 102 16 104/67 (79) 97 10/26/16 17:39 99 21 10/26/16 12:00 97.0 88 18 142/73 (96) 100 I/O 10/26/16 10/26/16 10/26/16 10/27/16 10/27/16 10/27/16 06:59 14:59 22:59 06:59 14:59 22:59 Intake Total 240 ml 960 ml 240 ml 240 ml Output Total 400 ml 600 ml Balance -160 ml 960 ml -360 ml 240 ml Intake Oral 240 ml 960 ml 240 ml 240 ml Output Urine Total 400 ml Hemodialysis 600 ml # Voids 0 1 0 # Bowel Movements 0 0 0 Laboratory Date/Time Source Procedure Growth Status 10/23/16 16:00 Blood Peripheral Aerobic Blood Culture - Preliminary NO GROWTH IN 3 DAYS Resulted 10/23/16 16:00 Blood Peripheral Anaerobic Blood Culture - Preliminary NO GROWTH IN 3 DAYS Resulted Physical Exam HEENT: Pupils round and reactive to light; normocephalic; atraumatic; no jaundice. NECK: Neck is supple, no JVD, no lymphadenopathy. CHEST: Chest is clear to auscultation and percussion. CARDIAC: Regular rate and rhythm with no murmur gallop or rubs. ABDOMEN: Soft, nondistended, nontender; no hepatosplenomegaly; bowel sounds are present in all four quadrants. EXTREMITIES: No clubbing, cyanosis, or edema. Legs are wrapped. Assessment and Plan Plan ASSESSMENT - UGIB - n/v with projectile coffee-ground emesis witnessed by nursing staff- No more N/V or hematemesis. HH stable 12.0/36.6 S/P EGD on 10/25 with biopsy of distal esophagus and gastric antrum. Severe distal esophagitis, with circumferential ulceration. BX pending EGD 04/2016 showed esophagitis, gastritis, duodenitis path benign. We [facility] at that time for ileus. - Sepsis- abx - End-stage renal disease: Hemodialysis per nephrology (Friday// Friday). PLAN - Renal diet - Protonix 40mg BID -OK for discharge from GI perspective. Keep on Protonix BID for one week then daily thereafter. yMles Escudero MD Oct 27, 2016 10:43
[2016-10-27 11:20] VITALS: BP 95/52; PULSE 73; RESP 17; TEMP 96.9; O2SAT 97
--- NOTE | 2016-10-27 11:34 | HHI.DCPOC ---
Discharge Care Plan Diagnosis: (1) Esophagitis (2) Hyperlipidemia (3) DM (diabetes mellitus) (4) End stage renal failure on dialysis (5) Hypertension (6) Aortic valve stenosis, critical (7) Vomiting (8) Hematemesis Goals to Promote Your Health * To prevent worsening of your condition and complications * To maintain your health at the optimal level Directions to Meet Your Goals Take your medications as prescribed Follow your dietary instruction Follow activity as directed Keep your appointments as scheduled Take your immunizations and boosters as scheduled If your symptoms worsen call your PCP, if no PCP go to Urgent Care Center or Emergency Room Smoking is Dangerous to Your Health. Avoid second hand smoke Call the 24-hour hour crisis hotline for domestic abuse at Akhil Elliott MD Oct 27, 2016 11:34
--- NOTE | 2016-10-27 11:36 | HHI.DS ---
Discharge Summary Admission Date Oct 23, 2016 at 11:47 Discharge Date: Oct 27, 2016 Admitting Diagnosis nausea and vomitingacute on chronic renal failure (1) Nausea and vomiting ICD Code: R11.2 - Nausea with vomiting, unspecified Status: Acute (2) Sepsis ICD Code: A41.9 - Sepsis, unspecified organism (3) End stage renal failure on dialysis ICD Code: N18.6 - End stage renal failure on dialysis; Z99.2 - Dependence on renal dialysis Status: Chronic (4) Hyperlipidemia ICD Code: E78.5 - Hyperlipidemia Status: Acute (5) Schizophrenia ICD Code: F20.9 - Schizophrenia Status: Chronic (6) DM (diabetes mellitus) ICD Code: E11.9 - DM (diabetes mellitus) Status: Chronic (7) Leukocytosis ICD Code: D72.829 - Elevated white blood cell count, unspecified (8) Hypertension ICD Code: I10 - Hypertension Status: Acute Procedures 10/25/16 EGD Brief History - From Admission The patient is a 56-year-old male who presented to the emergency department from the senior living facility today for complaint of nausea and vomiting that started this morning. He denies diarrhea or constipation. Denies fever, chills, night sweats. States that he was feeling fine yesterday. He is relatively poor historian. He tells me that he had dialysis yesterday, but had told the ER physician that he has not had dialysis in a few days. CBC/BMP: 10/26/16 0650 10/26/16 0630 Significant Findings Laboratory Tests Test 10/25/16 21:09 10/26/16 06:30 10/26/16 06:50 Red Blood Count 3.45 MIL/MM3 (4.50-5.90) 3.90 MIL/MM3 (4.50-5.90) Hemoglobin 10.6 GM/DL (13.0-17.0) 12.0 GM/DL (13.0-17.0) Hematocrit 32.6 % (39.0-51.0) 36.6 % (39.0-51.0) Monocytes (%) (Auto) 11.2 % (0.0-8.0) 11.5 % (0.0-8.0) Monocytes # (Auto) 1.1 TH/MM3 (0-0.9) Blood Urea Nitrogen 96 MG/DL (7-18) 104 MG/DL (7-18) Creatinine 7.15 MG/DL (0.60-1.30) 7.85 MG/DL (0.60-1.30) Sodium Level 133 MEQ/L (136-145) 132 MEQ/L (136-145) Chloride Level 90 MEQ/L (98-107) 88 MEQ/L (98-107) Estimat Glomerular Filtration Rate 8 ML/MIN (>89) 7 ML/MIN (>89) Random Glucose 112 MG/DL (74-106) Anion Gap 19 MEQ/L (5-15) Imaging Last Impressions Chest X-Ray 10/24/16 0000 Signed Impressions: Service Date/Time: September 14:37 - CONCLUSION: No acute cardiopulmonary disease. Ernst Arellano MD Abdomen/Pelvis CT 10/23/16 0903 Signed Impressions: Service Date/Time: Sunday, October 23, 2016 09:31 - CONCLUSION: 1. No acute abnormality to explain the patient's pain. 2. Atrophic kidneys with multiple parenchymal and suspected collecting system calcifications without obstruction. There are multiple low density lesions associated with each kidney which are poorly characterize on this unenhanced study but likely relate to cysts. 3. Pronounced coronary artery atherosclerotic calcifications. 4. Hiatal hernia. Papa Medina Jr., MD PE at Discharge General: No acute distress. Heart: Regular rate and rhythm. 2-3/6 murmur. Lungs: Clear to auscultation bilaterally. No wheezes, rales, or rhonchi. Breathing is nonlabored. Abdomen: Soft, nontender, nondistended. Extremities: No lower extremity edema. Psych: Alert and oriented. Pt update on day of discharge He has no complaints at this time. Denies nausea or vomiting. Abdominal pain has resolved. He wants to be discharged back to SNF today. Hospital Course The patient was admitted for management of nausea/vomiting and GI bleed. Gastroenterology was consulted. Cardiology was consulted for clearance prior to procedure. Echocardiogram was done. EGD showed severe esophagitis. Patient was placed on high dose PPI. His symptoms improved. His diet was advanced. He was continued on hemodialysis per nephrology. He was cleared for discharge by GI. Cardiology recommended follow-up as outpatient for further workup of valve disease. Pt Condition on Discharge: Stable Discharge Disposition: Discharge to SNF Discharge Time: > 30 minutes Discharge Instructions DIET: Follow Instructions for: Diabetic Diet, Renal Failure Diet Activities you can perform: Regular-No Restrictions Follow up Referrals: Cardiology - 1 Week Gastroenterology - 2 Weeks Nephrology - 1 Week with Homa Mazariegos MD PCP Follow-up - 1 Week New Medications: Pantoprazole (Pantoprazole) 40 Mg Tab 40 MG PO Q12HR for Esophagitis, #60 TAB 0 Refills 40mg bid X 1 week, then 40mg daily Continued Medications: Acetaminophen (Tylenol) 325 Mg Tab 650 MG PO Q6H PRN for PAIN 1-10 AND/OR FEVER >101F, TAB 0 Refills Ascorbic Acid (Vitamin C) 250 Mg Chew 500 MG CHEW BID for Nutritional Supplement, #60 TAB 0 Refills Aspirin (Aspirin) 81 Mg Chew 81 MG CHEW DAILY, TAB 0 Refills B-Complex W/ C & Folic Acid (Aracely-Annelise) 1 Tab 1 TAB PO DAILY, TAB Calcium Carbonate (Antacid) (Tums) 500 Mg Chew 500 MG PO TIDPC PRN for HEARTBURN, TAB 0 Refills Cholecalciferol (Vitamin D-1000) 1,000 Unit Tab 2000 UNITS PO DAILY for Nutritional Supplement, #1 BOTTLE 0 Refills Cinacalcet (Sensipar) 30 Mg Tab 30 MG PO DAILY, #30 TAB 0 Refills Divalproex ER (Depakote ER) 500 Mg Prmea 500 MG PO BID for Control Seizures, #30 TAB 0 Refills Fluoxetine (Prozac) 20 Mg Cap 20 MG PO HS, #30 CAP 0 Refills Hydroxyzine HCl (Hydroxyzine HCl) 25 Mg Tab 25 MG PO Q6HR for Itching, TAB 0 Refills Insulin Aspart Inj (Novolog Inj) 1,000 Unit/10 Ml Vial 0 SQ DIRECTED for Blood Sugar Management, #10 ML 0 Refills Sliding Scale as directed. Insulin Detemir Inj (Levemir Inj) 1,000 unit/ 10 ML Vial 5 UNITS SQ HS for Blood Sugar Management, #30 VIAL 0 Refills Do not mix with any other Insulin. Lactic Acid (Ammonium Lactate) (Ammonium Lactate) 12% Lotn 1 APPLIC TOPICAL ONCE, #1 BOTTLE 0 Refills Metoprolol Tartrate (Metoprolol Tartrate) 25 Mg Tab 12.5 MG PO Q12HR for heart for 30 Days, TAB Ondansetron (Zofran) 4 Mg Tab 4 MG PO Q8HR PRN for NAUSEA OR VOMITING, TAB 0 Refills Polyethylene Glycol 3350 Powder (Polyethylene Glycol 3350 Powder) 17 Gm Pow 17 GM PO DAILY for Constipation, #30 BOTTLE Sevelamer Carbonate (Renvela) 800 Mg Tab 800 MG PO TIDAC for phosphate binder for 30 Days, TAB Ziprasidone (Geodon) 80 Mg Cap 80 MG PO BID, #60 CAP 0 Refills Take 1 capsule (80mg) with 20mg capsule for a total dose of 100mg Discontinued Medications: Omeprazole (Omeprazole) 20 Mg Tab 20 MG PO DAILY for Reflux, #30 TAB 0 Refills Oxycodone-Acetaminophen (Percocet) 5-325 mg Tab 1 TAB PO Q4H PRN for PAIN, #90 TAB 0 Refills Akhil Elliott MD Oct 27, 2016 11:36
[2016-10-27] MEDS ORDERED: PANT40TA3 PO (11:37)
--- NOTE | 2016-10-27 12:12 | HHI.NPPN ---
Subjective General Problems: Anemia Renal Failure: Chronic, End Stage Renal Disease Additional Remarks Patient is alert, no SOB, feeling well, want to eat more. Review of Systems Gastrointestinal Gastrointestinal: Nausea & Vomiting Objective Data Data Vital Signs Date Time Temp Pulse Resp B/P (MAP) Pulse Ox O2 Delivery O2 Flow Rate FiO2 10/27/16 07:22 97.6 84 17 110/68 (82) 100 10/27/16 04:00 97.0 93 16 102/59 (73) 99 10/27/16 00:00 98.0 105 16 103/55 (71) 99 10/26/16 20:30 109 10/26/16 20:00 98.4 109 18 109/56 (73) 96 10/26/16 18:45 97.6 102 16 104/67 (79) 97 10/26/16 17:39 99 21 -: 10/26/16 0650 10/26/16 0630 Physical Exam General Appearance: No Acute Distress, Comfortable Throat Throat Exam: Oral Mucosa [place] & Moist Pulmonary Resp Exam: Clear Bilaterally, Breath Sounds Equal Cardiology CV Exam: Regular, Normal Sinus Rhythm, Murmur Gastrointestinal/Abdomen GI Exam: Soft, Non-Tender, Bowel Sounds Present, Positive Bowel Movement Musculoskeletal MS Exam: Joints Intact, Normal Gait, Normal Tone, Good Strength Integumentary Skin Exam: Clear, Warm, Dry, Intact Extremeties Extremities Exam: Trace Edema Neurologic Neuro Exam: Alert, Awake, Oriented Assessment/Plan Discussed Condition With: Patient Assessment Summary: Anemia of CKD, Hypertension, End Stage Renal Disease Problem List: (1) End stage renal failure on dialysis ICD Codes: N18.6 - End stage renal failure on dialysis; Z99.2 - Dependence on renal dialysis Status: Chronic Plan: Continue TTS HD per typical schedule. he has functioning AVF for HD use; avoid Left arm procedures avoid IVF, gadolinium is contraindicated no dietary protein restriction. HD done yesterday. Hgb. is stable. Possible D/C to SNF. (2) Nausea and vomiting ICD Codes: R11.2 - Nausea with vomiting, unspecified Status: Acute Plan: CT abd/pelvis was negative symptoms resolved due for EGD today GI following (3) DM (diabetes mellitus) ICD Codes: E11.9 - DM (diabetes mellitus) Status: Chronic Plan: monitor blood glucose, goal 140-180 mg/dL insulin as needed (4) Anemia ICD Codes: D64.9 - Anemia Status: Chronic Plan: Hb stable epogen not required, monitor for changes (5) Hypertension ICD Codes: I10 - Hypertension Status: Acute Plan: BP stable continue current medications (6) Aortic valve stenosis, critical ICD Codes: I35.0 - Nonrheumatic aortic (valve) stenosis Status: Acute Plan: AV and MV stenosis cardiology has evaluated, recommends replacement he was cleared for procedure today (7) Metabolic bone disease ICD Codes: E88.9 - Metabolic disorder, unspecified; M90.80 - Osteopathy in diseases classified elsewhere, unspecified site Status: Acute Plan: continue renvela, increase to 3 tabs with meals Homa Mazariegos MD Oct 27, 2016 12:12
[2016-10-27 13:40] VITALS: O2SAT 98
== END 2016-10-27 16:44 | DRG 871 ==
LOC: NEPE 08:55 → NEDA 11:44 → OBSVTOIN 11:47 → N06B 17:02
PROVIDERS: ADMIT Family Medicine; ATTEND Family Medicine
PROC: 5A1D60Z (ICD-10-PCS; principal; 2016-10-24)
PROC: 0DB58ZX Excision of Esophagus, Via Natural or Artificial Opening Endoscopic, Diagnostic (ICD-10-PCS; 2016-10-25)
PROC: 0DB68ZX Excision of Stomach, Via Natural or Artificial Opening Endoscopic, Diagnostic (ICD-10-PCS; 2016-10-25)
DX: A41.9 Sepsis, unspecified organism (principal); N18.6 End stage renal disease; K92.0 Hematemesis; E88.89 Other specified metabolic disorders; I12.0 Hypertensive chronic kidney disease with stage 5 chronic kidney disease or end stage renal disease; E11.22 Type 2 diabetes mellitus with diabetic chronic kidney disease; K22.10 Ulcer of esophagus without bleeding; G40.909 Epilepsy, unspecified, not intractable, without status epilepticus; E78.5 Hyperlipidemia, unspecified; K21.9 Gastro-esophageal reflux disease without esophagitis; I45.10 Unspecified right bundle-branch block; D63.1 Anemia in chronic kidney disease; K21.0 Gastro-esophageal reflux disease with esophagitis; E21.3 Hyperparathyroidism, unspecified; I08.0 Rheumatic disorders of both mitral and aortic valves; F20.9 Schizophrenia, unspecified; F41.9 Anxiety disorder, unspecified; Z79.4 Long term (current) use of insulin; Z85.828 Personal history of other malignant neoplasm of skin; Z86.19 Personal history of other infectious and parasitic diseases; Z99.2 Dependence on renal dialysis
CPT/HCPCS: 71010; 74176; 80048; 80053; 82948; 83690; 84100; 85025; 87040; 88305; 88312; 90935; 93005; 93306; 96361; 96374; 96375; 96376; C9113; J1170; J1644; J1815; J2405; J7030; J7040; P9047

== ENCOUNTER 2017-01-03 05:42 | Day surgery (SDC) | payer MEDICARE, OTHER ==
[~2017-01-03] VITALS: Ht 190.5 cm; Wt 90.6 kg
[~2017-01-03 05:42] MED LIST changes: +AMMO12LO TOPICAL; +ASPI-516 CHEW; -ASPI1TAB69 PO; +CINA30 PO; +HYDR-3133 PO; -OMEP20TA PO; +PANT40TA3 PO; -PERC5TAB12 PO; +VITA1000 PO; +VITA250C3 CHEW; +ZOFR4TAB PO
[2017-01-03] MEDS ORDERED: IOHEXOL 350 MG/ML 50 ML BTL (for Cath Lab) OTHER ONE (05:43)
[2017-01-03] MEDS ORDERED: IOHEXOL 350 MG/ML 10 ML VIAL (for RAD DIAG) IVCONTRAST ONE (05:43)
[2017-01-03] MEDS ORDERED: INSULIN HUMAN REGULAR 1,000 UNITS/10 ML VIAL SQ PRN (06:15)
[2017-01-03] MEDS ORDERED: LACTATED RINGER'S 1000 ML IV PRN (06:15)
[2017-01-03] MEDS ORDERED: SODIUM CHLORID 0.9% 500 ML IV PRN (06:15)
[2017-01-03] MEDS ORDERED: METOPROLOL TARTRATE 25 MG TAB PO PRN (06:15)
[2017-01-03] MEDS ORDERED: POVIDONE IODINE 5% (ANTISEPSIS KIT) 4 APPLICATIONS EACH NARE PRN (06:15)
[2017-01-03] MEDS ORDERED: CHLORHEXIDINE GLUCONATE 2 % 1 PACK (2 CLOTHS) TOPICAL PRN (06:15)
[2017-01-03] MEDS ORDERED: NS 1000P @30 MLS/HR (KVO) IV SCH (06:15)
[2017-01-03 06:56] VITALS: BP 96/56; PULSE 83; RESP 17; TEMP 97.9; O2SAT 95
[2017-01-03] MEDS ORDERED: LORA0.5T PO (07:44)
[2017-01-03] MEDS ORDERED: OMEP20TA93 PO (07:47)
[2017-01-03] MEDS ORDERED: MIRT30TA PO (07:47)
[2017-01-03] MEDS ORDERED: PERC5TAB12 PO (07:47)
[2017-01-03] MEDS ORDERED: METO25TA3 PO (07:47)
[2017-01-03] MEDS ORDERED: VIST25CA PO (07:47)
[2017-01-03] MEDS ORDERED: MIRA3350 PO (07:47)
[2017-01-03] MEDS ORDERED: MIDAZOLAM HCL 2 MG/2 ML VIAL ONE (08:53)
[2017-01-03] MEDS ORDERED: HEPARIN-NS/PF INJ 1,000 ML ONE (08:54)
--- NOTE | 2017-01-03 09:14 | ECHRPT ---
Indication: , EVAL MV CONCLUSIONS Normal left ventricular size. Mild concentric left ventricular hypertrophy. The left ventricular systolic function is normal with an estimated ejection fraction in the range of 55-60%. No regional wall motion abnormalities are present. The left atrial size is mildly dilated. Mild thickening of the mitral valve leaflets. Calcification of both mitral valve leaflets. Moderate mitral valve regurgitation. Mitral annular calcification is present. No significant mitral valve stenosis. There appears to be a partially ruptured chordae of the posterior mitral valve leaflet. Trileaflet aortic valve. Mild thickening of the aortic valve leaflets. Diffuse calcification of the aortic valve. 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 Trace aortic valve regurgitation. Severe aortic valve stenosis. Aortic valve area is 0.35 cm. Aortic valve mean gradient is 60 mmHg. Structurally normal tricuspid valve. There is trace tricuspid valve regurgitation. BP: 96 / 56 HR: Rhythm: Sinus MEASUREMENTS (Male / Female) Normal Values Technical Quality:Good 2D ECHO LVOT Diameter 1.8 cm DOPPLER AV Peak Velocity 500.0 cm/s LVOT Peak Gradient 3.0 mmHg AV Peak Gradient 100.0 mmHg LVOT Velocity Time Integr 15.5 cm AV Mean Gradient 60.0 mmHg AV Area Cont Eq vti 0.4 cm AV Velocity Time Integral 112.0 cm AV Area Cont Eq pk 0.4 cm LVOT Peak Velocity 86.1 cm/s Medications Complications There were no complications prior to, during or in recovery from the transesophag eal echocardiogram.. Proc. Components The patient was brought to the diagnostic imaging area in a fasting state after o btaining an informed consent. DAISY was performed at multiple levels. The patient tolerated the procedu re well and there were no complications. The patient was transferred to the floor in satisfactory condition .. FINDINGS LEFT VENTRICLE Normal left ventricular size. Mild concentric left ventricular hypertrophy. The left ventricular systolic function is normal with an estimated ejection fraction in the range of 55-60%. No regional wall motion abnormalities are present. RIGHT VENTRICLE Normal right ventricular size and systolic function. LEFT ATRIUM The left atrial size is mildly dilated. RIGHT ATRIUM The right atrial size is normal. ATRIAL APPENDAGES Normal left atrial appendage size with no evidence of thrombus formation. ATRIAL SEPTUM Normal atrial septal thickness without atrial level shunting by limited color doppler interrogation. AORTA The aortic root and proximal ascending aorta are not well visualized. The aortic root and proximal ascending aorta are normal in size on limited imaging. MITRAL VALVE Mild thickening of the mitral valve leaflets. Calcification of both mitral valve leaflets. Moderate mitral valve regurgitation. Mitral annular calcification is present. No significant mitral valve stenosis. There appears to be a partially ruptured chordae of the posterior mitral valve leaflet. AORTIC VALVE Trileaflet aortic valve. Mild thickening of the aortic valve leaflets. Diffuse calcification of the aortic valve. 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 Trace aortic valve regurgitation. Severe aortic valve stenosis. Aortic valve area is 0.35 cm. Aortic valve mean gradient is 60 mmHg. TRICUSPID VALVE Structurally normal tricuspid valve. There is trace tricuspid valve regurgitation. VESSELS The inferior vena cava is normal in size. PULMONARY VALVE The pulmonary valve is not well visualized. PERICADIUM No pericardial effusion. Nash Garcia MD, FACC (Electronically Signed) Final Date:03 January 2017 09:13
[2017-01-03] MEDS ORDERED: LIDOCAINE HCL 1% PF 30 ML VIAL ONE (09:31)
[2017-01-03] MEDS ORDERED: SODIUM CHLOR 0.9% 250 ML INJ 250 ML IV PRN (10:00)
[2017-01-03] MEDS ORDERED: LIDOCAINE HCL 1% 50 ML VIAL INFIL PRN (10:00)
[2017-01-03] MEDS ORDERED: ONDANSETRON HCL 4 MG/2 ML VIAL IV PUSH PRN (10:00)
[2017-01-03] MEDS ORDERED: METOCLOPRAMIDE HCL 10 MG/2 ML VIAL IV PUSH PRN ×2 (10:00→11:45)
[2017-01-03] MEDS ORDERED: MISC INFORMATION XX ONE (10:00)
[2017-01-03] MEDS ORDERED: ATROPINE SULFATE 1 MG/ML VIAL IV PUSH PRN (10:00)
[2017-01-03] MEDS ORDERED: LORazepam 2 MG/ML VIAL IV PUSH PRN (10:00)
--- NOTE | 2017-01-03 10:02 | CATHPROC ---
[facility] HIS Report Study Information Study Number Admission Scheduled Start Study Start [id number] Jan 03 2017 5:42AM 01/03/2017 Jan 03 2017 8:41AM [facility] Cardiac Catheterization Admit Source Facility Department Other [facility] - [facility] Physician and Clinical Staff Initial MD Garcia, Nash Supervisor Packing Roomphilomena Joshua RN, Teja Supervisor Packing RoomHemal Ulloa Recorder Mahamed Hinojosa,RT(R) Scrub Piyush Fournier RCIS(BS) Procedures Performed Procedure Location (Site) Vessel Name Coronary Angiograms LCA Left Coronary Coronary Angiograms RCA Right Coronary Equipment Time Cover Cutter Description Size Mfg Part Number Used/Scraped ARROW INTERNATIONAL CATHETER, FR.7 BALLOON [id number] 09:02 FR 7 Used INC. WEDGE PRESSURE *[id number] TRANSDUCER, Warm Health [id number] 09:02 WRIGHT Goods Platform * Used W/STOCKCOCK *[id number] 09:50 CARDIVA MEDICAL VASCADE, FR5 CLOSURE SYSTEM FR 5 Used *[id number] 09:48 CARDIVA MEDICAL VASCADE, FR6 CLOSURE SYSTEM FR 6\7 Used *[id number] *[id number] 534-520T *[id number] 534-521T *[id number] 09:02 MEDLINE INDUSTRIES PACK, CCL CUSTOM * Used *[id number] 09:02 Adomos PACER PEN, SKIN DUAL W/ RULER * Used *[id number] 09:02 Calypso Wireless MEDICAL WIRE, 3MMJ .035 180CM 180CM Used *[id number] 09:02 NAMIC MANIFOLD, 2 PORT * Used *[id number] 09:02 NAMIC MANIFOLD, 4 PORT * Used *[id number] 09:02 NYCOMED OMNIPAQUE, 350 MG, 150ML 150ML [id number] 09:02 CARTER MEDICAL BLANKET,WARM AIR CCL * Used *[id number] 09:02 TERUMO MEDICAL SHEATH, FR5 TERUMO (10CM) FR 5 Used *[id number] 09:02 TERUMO MEDICAL SHEATH, FR7 TERUMO (10CM) FR 7 Used *[id number] History: Allergies Allergy Reaction fexofenadine PT DENIES ALLERGY History: Risk Factors Family History of Hypertension Dyslipidemia Previous CT Previous Heart Failure Premature CAD Yes No No No Yes Prior Valve Prior PCI Prior CABG Surgery No No No Cerebrovascular Peripheral Artery Chronic Lung On Dialysis Diabetes Diabetes Therapy Disease Disease Disease Yes No Yes No Yes Insulin History: Other Current Smoker No Labs Hgb (g/dl) Hct (%) WBC (l/cumm) Platelets (thousands) 11.60-17.00 35.00-51.00 4.00-11.00 150.00-450.00 9.2 27.4 7.9 188 Glucose (mg/dl) BUN (mg/dl) Creatinine (mg/dl) BUN:Creatinine (1:x) 74.00-106.00 7.00-18.00 0.50-1.30 10.00-20.00 89 96 7.7 12.5 Na (meq/l) K (meq/l) 136.00-145.00 3.50-5.10 139 4.8 Medication Medication Total Dose (Bolus/Oral) Medication Total Dosage/Unit 1% XYLOCAINE 5 mL FENTANYL 25 mcg VERSED 1 mg Medications (Bolus/Oral) Medication Time Given Dosage/Unit Administered By Reason FENTANYL 01/03/2017 9:29:13 AM 25 mcg Teja Joshua RN 25 mcg FENTANYL given in lab by Teja Joshua RN via Peripheral IV. Ordered by Nash Garcia. 1% XYLOCAINE 01/03/2017 9:29:17 AM 5 mL Nash Garcia 5 mL 1% XYLOCAINE given in lab by Nash Garcia in Right Groin via Subcutaneous. Ordered by Katherine Garcia. VERSED 01/03/2017 9:30:31 AM 1 mg Teja Joshua RN 1 mg VERSED given in lab by Teja Joshua RN via Peripheral IV. Ordered by Nash Garcia. Medication (Drip) Medication Time Given Dosage/Unit Concentration/Unit Diluent (ml) Solution IV Solutions 01/03/2017 9:00:07 AM 0 mL (IV) 500 NaCl .9 Patient arrived on IV Solutions given by Nash Garcia in Right Antecubital via Peripheral IV. Pump/ Drip Flow = 20 ml/hr using NaCl .9. Ordered by Nash Garcia. Initial Case Assessment Cardiovascular HR Rhythm NIBP Chest Pain 85 sr 92/59 0 Edema Present Skin color Skin None Normal Warm Dry Circulatory - Right Pulses Posterior Tibial Femoral d 1 Scale (0,1,2,3,4,d) Circulatory - Left Pulses Posterior Tibial Femoral d 1 Scale (0,1,2,3,4,d) Neurological State Oriented to time-place- Alert Moves all extremities person Respiration - General Respiration Rate SpO2 (%) O2 (lpm) (B/min) 18 96 0 Final Case Assessment Cardiovascular HR Rhythm NIBP Chest Pain 87 sr 100/57 0 Edema Present Skin color Skin None Normal Warm Dry Circulatory - Right Pulses Posterior Tibial Femoral d 1 Scale (0,1,2,3,4,d) Circulatory - Left Pulses Posterior Tibial Femoral d 1 Scale (0,1,2,3,4,d) Neurological State Oriented to time-place- Alert Moves all extremities person Respiration - General Respiration Rate SpO2 (%) O2 (lpm) (B/min) 18 99 0 Chronological Log Time Study Chronological Log 8:42:36 Patient arrived via Bed. 8:42:38 Patient Name, D.O.B, / Armband Verified By R.N. 8:42:39 Consent signed by the physician and the patient and verified by the [facility] staff. Vitals capture started with the following parameters, Patient=Adult, Interval=5 min, Initial P eosyboc=347 mmHg, 8:53:21 Deflation Rate=5 mmHg, Cuff placed on Left Arm 8:53:59 HR=84 bpm, NIBP=96/60 mmhg, SpO2=97.0 %, Resp=18 B/min, Saldivar=2 8:56:30 Reference ECG taken 8:58:50 Pre-op and post- op instructions given; patient acknowledges understanding of instructions. 8:58:54 HR=85 bpm, NIBP=92/59 mmhg, SpO2=97.0 %, Resp=18 B/min, Saldivar=2 8:59:28 Presedation assessment performed by [facility] RN. 8:59:31 Patient has been NPO for More than 6Hrs. 8:59:33 Skin Breakdown-noted is bandages on bilateral arms and legs. 8:59:57 A # 20 IV was noted in the Antecubital (right). Grade = 0 Patient arrived on IV Solutions given by Nash Garcia in Right Antecubital via Peripheral IV . Pump/Drip Flow = 20 9:00:07 ml/hr using NaCl .9. Ordered by Nash Garcia. 9:00:29 History and physical on the chart or being dictated. Assessment: Initial Case, HR=85 BPM, Rhythm=sr, NIBP=92/59 mmhg, Chest Pain=0, Edema=None, Color =Normal, Skin = Warm, Dry Right Pulses: Post Tib=d, Femoral=1 9:00:36 Left Pulses: Post Tib=d, Femoral=1 Neurological: State=Alert, Ox3, LOZOYA Respiration: Resp=18 B/min, SpO2=96 %, O2=0 lpm 9:01:11 Bilateral groins prepped with 2% chlorhexidine, and draped after a 3 minute waiting time. 9:03:55 HR=83 bpm, NIBP=94/59 mmhg, SpO2=95.0 %, Resp=18 B/min, Saldivar=2 9:08:54 UR=307 bpm, NIBP=95/57 mmhg, SpO2=97.0 %, Resp=18 B/min, Saldivar=2 9:10:50 Pressure channel 1 zeroed. 9:12:30 Pressure channel 2 zeroed. 9:13:57 HR=83 bpm, NIBP=95/51 mmhg, SpO2=98.0 %, Resp=18 B/min, Saldivar=2 9:15:13 MD paged 9:18:56 HR=82 bpm, NIBP=93/52 mmhg, SpO2=93.0 %, Resp=18 B/min, Saldivar=2 9:21:31 MD arrived. 9:23:57 HR=84 bpm, NIBP=89/55 mmhg, SpO2=96.0 %, Resp=21 B/min, Saldivar=2 Time Out. Correct patient, correct procedure, correct physician, power injector not loaded with contrast with surgical 9:28:40 team present. Time Out Concurred by MD and individual staff in procedure. Not loaded at this sharon e. 9:28:54 HR=86 bpm, NIBP=89/58 mmhg, SpO2=99.0 %, Resp=21 B/min, Saldivar=2 9:29:00 Presedation re-assessment performed by [facility] RN. 9:29:05 Case Start 9:29:07 Verbal Stimulation=2 Physical Stimulation=2 Airway=2 Respiration=2 TOTAL=8. (0=absent, 1=zeng ited, 2=present) 9:29:13 25 mcg FENTANYL given in lab by Teja Joshua RN via Peripheral IV. Ordered by Nash Garcia . 9:29:17 5 mL 1% XYLOCAINE given in lab by Nash Garcia in Right Groin via Subcutaneous. Ordered by Nash Garcia. 9:30:31 1 mg VERSED given in lab by Teja Joshua RN via Peripheral IV. Ordered by Nash Garcia. 9:32:25 Access site was Right Femoral Artery. 9:32:45 A SHEATH, FR5 TERUMO (10CM) FR 5 was advanced into the Fem Art (right) using the Percutaneou s technique. 9:32:52 Access site was Right Femoral Vein. 9:33:00 A SHEATH, FR7 TERUMO (10CM) FR 7 was advanced into the Fem Art (right) using the Percutaneou s technique. 9:33:48 A CATHETER, FR.7 BALLOON WEDGE PRESSURE FR 7 was inserted via Fem Vein (right) 9:33:53 HR=86 bpm, FUOU=469/60 mmhg, SpO2=95.0 %, Resp=22 B/min, Saldivar=2 Recorded Pressure: RA, HR=85, Condition=Condition 1 9:35:14 (Right Atrium) RA 11/9/5 Recorded Pressure: RV, HR=87, Condition=Condition 1 9:35:35 (Right Ventricle) RV 55/4/7 Recorded Pressure: MPA, HR=86, Condition=Condition 1 9:36:15 (Main Pulmonary Artery) MPA 55/23/37 Recorded Pressure: PCW, HR=87, Condition=Condition 1 9:37:40 (Pulmonary Capillary Wedge) PCW 32/38/25 9:38:58 HR=86 bpm, NIBP=92/57 mmhg, SpO2=94.0 %, Resp=19 B/min, Saldivar=2 A JL 4.0 INFINITI CATHETER FR 5 was advanced over a wire. OMNIPAQUE, 350 MG, 150ML 150ML was use d for 9:39:51 injections. Recorded Pressure: Ao, HR=88, Condition=Condition 1 9:40:10 (Aorta) Ao 79/48/60 9:40:18 The LCA was injected and visualized at various angles. OMNIPAQUE, 350 MG, 150ML 150ML used. 9:42:37 Catheter was removed A JR 4.0 INFINITI CATHETER FR 5 was advanced over a wire. OMNIPAQUE, 350 MG, 150ML 150ML was use d for 9:42:39 injections. 9:43:57 HR=88 bpm, NIBP=96/52 mmhg, SpO2=96.0 %, Resp=29 B/min, Saldivar=2 9:45:20 Catheter was removed A AR MOD INFINITI CATHETER FR 5 was advanced over a wire. OMNIPAQUE, 350 MG, 150ML 150ML was u sed for 9:46:14 injections. 9:47:37 The RCA was injected and visualized at various angles. OMNIPAQUE, 350 MG, 150ML 150ML use d. 9:47:52 Catheter was removed 9:48:38 Case End 9:48:58 HR=88 bpm, NIBP=94/54 mmhg, SpO2=96.0 %, Resp=18 B/min, Saldivar=2 9:49:47 VASCADE, FR6 CLOSURE SYSTEM FR 6\7 placement in the Fem Vein (right) 9:51:11 VASCADE, FR5 CLOSURE SYSTEM FR 5 placement in the Fem Art (right) Assessment: Final Case, HR=87 BPM, Rhythm=sr, TJNR=226/57 mmhg, Chest Pain=0, Edema=None, [place] r=Normal, Skin = Warm, Dry Right Pulses: Post Tib=d, Femoral=1 9:53:31 Left Pulses: Post Tib=d, Femoral=1 Neurological: State=Alert, Ox3, LOZOYA Respiration: Resp=18 B/min, SpO2=99 %, O2=0 lpm 9:53:57 HR=87 bpm, ZZOI=187/57 mmhg, SpO2=95.0 %, Resp=18 B/min, Saldivar=2 9:54:14 Catheter(s) removed without difficulty 9:54:19 Sterile dressing applied to site 9:54:22 Cine recording checked. 9:54:56 Saturation: Site=FA (Femoral Artery) , O2=95.1 %, Hgb=9.2 gm/dl, Condition=Condition 1. Us ed in calculation. 9:55:13 Saturation: Site=PA (Pulmonary Artery) , O2=77.8 %, Hgb=9.2 gm/dl, Condition=Condition 1. Used in calculation. 9:58:58 HR=80 bpm, NIBP=96/62 mmhg, SpO2=95.0 %, Resp=18 B/min, Saldivar=2 9:59:48 Vitals capture stopped. End Study - Contrast Media Used In Study Contrast Total Opened (mL) Total Used (mL) Total Wasted (mL) Omnipaque 50 50 0 End Study - Maximum Contrast Load Max Contrast Load (mL) 59.0 End Study - Radiation Exposure Fluoro Time (minutes) 4.7 End Study - Patient Disposition Complications Transferred To Telemetry Bed
--- NOTE | 2017-01-03 10:28 | MA ---
cc: CYNDI LONGO DATE 01/03/2017 INDICATIONS Severe aortic stenosis, preoperative evaluation. METHOD The risks, benefits and alternatives discussed with the patient. The patient understood and consented to the procedure. The patient brought into the catheterization lab, placed on the catheterization table. The right groin was prepped and draped in a sterile fashion. The right groin was anesthetized with 2% lidocaine. The right common femoral artery was cannulated and a 5-Cymraes 11 cm sheath was placed without difficulty. The right femoral vein was accessed and a 7-Cymraes 11 cm sheath was placed without difficulty. Right heart catheterization: A 7-Cymraes [place]-Viktor pulmonary arterial catheter was advanced in the right femoral venous sheath to the level of the right atrium under fluoroscopic guidance. Hemodynamics were performed in all chambers while advancing to the pulmonary capillary wedge position. HEMODYNAMICS Hemodynamics were as follows: 1. The right atrial pressure measured at 11 mmHg. 2. The right ventricular pressure measured 55/4 mmHg. 3. Pulmonary arterial pressure measured at 55/23 mmHg. 4. Pulmonary capillary wedge pressure measured 25 mmHg. 5. Cardiac output is 12.7 liters per minute. 6. Cardiac index 5.8 liters per minute per meter squared. CORONARY ANGIOGRAPHY The left coronary circulation was selectively engaged with a 5-Cymraes JL-4 catheter. The right coronary circulation was selectively engaged with a 5-Cymraes AR mod catheter. Angiography findings are as follows; 1. Left main coronary has mild calcium present but no significant obstructive disease. 2. Left anterior descending coronary has an eccentric 30% proximal stenosis. The remainder of the vessel has only minor luminal irregularities. 3. Circumflex coronary artery gives rise to an obtuse marginal branch with minor luminal irregularities. 4. The right coronary has an anterior takeoff and gives rise to a posterior descending branch. Is right dominant. The right coronary has minor luminal irregularities. CONCLUSIONS 1. Severe aortic valve stenosis. 2. Moderate pulmonary hypertension. 3. Normal cardiac output and index. 4. Elevated left-sided filling pressures. 5. Mild nonobstructive coronary disease. PLAN We will discuss the case with cardiothoracic surgery for consideration of traditional surgical aortic valve replacement versus candidacy for transcatheter aortic valve replacement. Anticipate discharge later today. He is scheduled for dialysis tomorrow. MD [facility] Rubio/ZABRINA /10:04 AM /10:15 AM
[2017-01-03] MEDS ORDERED: BACITRACIN OINT 0.9 GM PKT TOP ONE (11:00)
--- NOTE | 2017-01-03 12:16 | PD.CAR.PN ---
CVT Progress Note Subjective/Hospital Course: sts data discussed with pt RISK SCORES About the STS Risk Calculator Procedure: AV Replacement Risk of Mortality: 5.222% Morbidity or Mortality: 31.75% Long Length of Stay: 17.795% Short Length of Stay: 15.99% Permanent Stroke: 0.924% Prolonged Ventilation: 23.829% DSW Infection: 1.367% Renal Failure: N/A Reoperation: 11.25% Objective: Vital Signs Date Time Temp Pulse Resp B/P (MAP) Pulse Ox O2 Delivery O2 Flow Rate FiO2 01/03/17 10:08 97 Room Air 01/03/17 06:56 97.9 83 17 96/56 (69) 95 Labs: Laboratory Tests Test 01/03/17 08:33 Albumin 2.7 GM/DL (3.4-5.0) (Joann Lopez) Plan: Patient is intermediate risk for TAVR but is frail and institutionalized. He is not a candidate for open AVR.. (Katherine Andino MD) Joann Lopez Jan 03, 2017 12:15 Katherine Andino MD Jan 03, 2017 13:53
--- NOTE | 2017-01-03 13:52 | RADRPT ---
EXAM DATE/TIME: 01/03/2017 13:18 [facility] COMPARISON: No previous studies available for comparison. INDICATIONS : Pre op cardiac surgery. MEDICAL HISTORY : Hyperparathyroidism. Gastroesophageal reflux disease. Hypercholesterolemia. Hypertension. Renal failu re. Hemodialysis. Endocrine disorder. Diabetes. Anemia. Hepatitis C. Skin cancer. SURGICAL HISTORY : Tonsillectomy. Adenectomy. AVF. ENCOUNTER: Initial ACUITY: 1 day PAIN SCORE: 0/10 LOCATION: Bilateral neck PEAK SYSTOLIC VELOCITIES (cm/sec): ICA/CCA RATIO: Right: 1.0 Left: 1.1 ICA: Right: 81.4 Left: 93.1 CCA: Right: 82.2 Left: 94.5 ECA: Right: 81.4 Left: 93.7 VERTEBRAL: Right: 40.0 antegrade Left: 46.0 antegrade Elevated flow velocities and ICA/CCA ratios have been found to correlate with increased degrees of vessel stenosis, calculated as percentage of diameter relative to a normal segment of distal ICA/CCA FINDINGS: RIGHT CAROTID: No significant stenosis is visualized. The waveforms are within normal limits. LEFT CAROTID: No significant stenosis is visualized. The waveforms are within normal limits. VERTEBRAL ARTERIES: Antegrade flow is seen in both vertebral arteries. MISCELLANEOUS: None. CONCLUSION: 1. Minimal carotid plaque without significant flow-limiting stenosis. 2. Antegrade vertebral artery flow bilaterally. Azam Sandy MD on January 03, 2017 at 13:49 Board Certified Radiologist. This report was verified electronically.
--- NOTE | 2017-01-03 16:32 | RADRPT ---
EXAM DATE/TIME: 01/03/2017 15:52 [facility] COMPARISON: No previous studies available for comparison. INDICATIONS : Status post left sided heart cath. MEDICAL HISTORY : Hypercholesterolemia. Hypertension. Hepatitis C. Hyperparathyroidism. GERD. Chest and abdominal pain. ESRD. Diabetes. Anemia. Squamous skin cancer. Schizophrenia. Bipolar. Depression. SURGICAL HISTORY : Tonsillectomy. Adenoidectomy. AV shunt. Dialysis. Skin cancer removal from forehead. ENCOUNTER: Initial ACUITY: 1 day PAIN SCORE: 0/10 LOCATION: chest FINDINGS: There is cardiomegaly with moderate congestive failure. There is no evident consolidation or pleural effusion. The portion of the bony skeleton visualized is unremarkable. CONCLUSION: Moderate congestive failure. Angel Rhoades MD FACR on January 03, 2017 at 16:30 Board Certified Radiologist. This report was verified electronically.
--- NOTE | 2017-01-03 17:49 | RADRPT ---
EXAM DATE/TIME: 01/03/2017 15:23 [facility] COMPARISON: No previous studies available for comparison. INDICATIONS : Aortic stenosis IV CONTRAST: 100 cc Omnipaque 350 (iohexol) IV RADIATION DOSE: 44.36 CTDIvol (mGy) MEDICAL HISTORY : Cardiovascular disease. Hypertension. dialysis, renal failure SURGICAL HISTORY : AV shunt ENCOUNTER: Initial ACUITY: 1 day PAIN SCALE: 0/10 LOCATION: chest TECHNIQUE: Volumetric scanning was performed using a multi-row detector CT scanner. The data was post processed with a variety of visualization algorithms including full volume maximum intensity projection, multi -planar sliding thin slab reformation, curved planar reformation, and surface rendering techniques. Using automated exposure control and adjustment of the mA and/or kV according to patient size, radiat ion dose was kept as low as reasonably achievable to obtain optimal diagnostic quality images. DIC OM format image data is available electronically for review and comparison. FINDINGS: CARDIAC: Large plaque is present in the left main from ostium through the mid LAD. Large plaque is seen in th e dorsum the circumflex. Large plaque is seen at the proximal right coronary. These are felt to be hemodynamically significant. AORTIC ROOT/VALVE: Dense aortic valve calcifications are evident. The cusp are obscured. The aortic root measures 3 cm. Mid thoracic aorta measures 3.5 cm THORACIC AORTA: Origin of the great vessels is normal. Minimal calcific plaque is seen at the left subclavian not no t to be significant. There is no mural thrombus, dissection, ABDOMINAL AORTA: No evidence of aneurysm, mural thrombus, dissection, mural calcification, or stenosis. CELIAC ARTERY: Celiac artery is widely patent. SMA: Superior mesenteric artery is widely patent. RIGHT RENAL ARTERY: Right renal artery is widely patent. LEFT RENAL ARTERY: Left renal artery is widely patent. RIGHT COMMON ILIAC: No evidence of aneurysm, mural thrombus, dissection, mural calcification, or stenosis. The common fe moral measures 9 mm. LEFT COMMON ILIAC: No evidence of aneurysm, mural thrombus, dissection, mural calcification, or stenosis. The common fe moral measures 8 mm. THORAX: There is cardiomegaly with mild masses edema and trace pleural effusions. Minimal bibasilar parenchy mal changes evident. There are no suspicious lung lesions. Minimal groundglass opacity present righ t upper lobe. ABDOMEN: The liver, spleen, pancreas and adrenals unremarkable. Bilateral renal cysts are evident with multip le dystrophic renal calcifications. There is no adenopathy. PELVIS: Pelvic contents are unremarkable. Total hip on the left. CONCLUSION: TAVR work up as described above. Angel Rhoades MD FACR on January 03, 2017 at 17:27 Board Certified Radiologist. This report was verified electronically.
[2017-01-03 17:59] LABS: HEMOGLOBIN A1a 1.2 %; HEMOGLOBIN A1b 2.2 %; HEMOGLOBIN Ao 82.4 %; HEMOGLOBIN LA1C 2.6 %; HEMOGLOBIN P3 6.6 %
--- NOTE | 2017-01-06 08:04 | MB ---
cc: ROSENDO CHRISTINA DATE OF CONSULTATION 01/03/17 DATE OF [address] Garcia, Dr. Felix Antony, Dr. Mccarthy HISTORY OF PRESENT ILLNESS This gentleman lives in [facility], he has been living there for about 7 years for history of schizophrenia. He was recently seen by Dr. Garcia in April 2016 when he presented after a fall and a fractured left hip, had needed cardiac clearance and was found to have severe aortic stenosis, managed medically. He underwent surgery by Dr. Chauhan for left hip bipolar hemiarthroplasty. He was later followed up again, was actually hospitalized back in September for abdominal pain, nausea, vomiting. Was seen at that time by Dr. Albright. The patient underwent EGD on October 25 with biopsy of the distal esophagus, gastric antrum, was found to have distal esophagitis, circumstantial ulceration. Was finally followed up with Dr. Garcia, requiring a follow-up colonoscopy on 12/27 and needed clearance. Echocardiogram was done October 25 which showed severe aortic valve stenosis, a mean gradient of 75, aortic valve area of 0.68, max gradient of 118 mmHg, ejection fraction of 65%. Mild aortic insufficiency, moderate pulmonary hypertension with pulmonary pressure of 56 mmHg. He was scheduled for outpatient cardiac catheterization. Also, underwent DAISY first thing this morning, showing mild left ventricular hypertrophy, EF of 55-60%, left atrium was mildly dilated, moderate mitral regurgitation, mitral annular calcification present. No evidence of stenosis. There appeared to be a partially ruptured chordae of the posterior mitral valve leaflet. Aortic valve area now 0.35. Aortic valve gradient of 60. Cardiac cath revealed very mild evidence of disease with 20% left main, proximal LAD 20% stenosis. We were consulted to evaluate for open aortic valve replacement versus transcatheter aortic valve replacement. PAST MEDICAL HISTORY The patient's past medical history significant for severe aortic stenosis, moderate mitral valve regurgitation, status post transesophageal echocardiogram showing partially ruptured chordae of the posterior mitral valve leaflet, diabetes mellitus. Schizophrenia, he takes Depakote. Hypertension, chronic CHF, anxiety. He also has a disorder where he scratches and picks at his skin and has multiple small lesions on his arms and legs. He has chronic end-stage renal disease on dialysis 3 days a week, followed by Dr. Felix Antony. PAST SURGICAL HISTORY Surgeries include left hemiarthroplasty. EGD, colonoscopy. Skin cancer removal on his right nares. ALLERGIES THE PATIENT HAS ALLERGIES TO FEXOFENADINE. MEDICATIONS Home medications include: 1. Aspirin 81 daily. 2. Calcium 500 p.r.n. 3. Depakote 500 b.i.d. 4. Geodon 20 milligrams b.i.d. 5. Hydroxyzine p.r.n. 6. Levemir 5 units q. h.s. 7. Lorazepam 0.5 p.r.n. 8. Metoprolol 25 half a tablet p.o. b.i.d. 9. Mirtazapine at bedtime. 10. NovoLog sliding scale. 11. Omeprazole. 12. Protonix. 13. Prozac 20 milligrams p.o. at q. h.s. 14. Renvela 800 with meals. 15. Sensipar. 16. Vitamin C. 17. Vitamin D. 18. Zofran. FAMILY HISTORY Noncontributory. SOCIAL HISTORY No tobacco or alcohol. Single, lives in an assisted-living for the last 7 years. REVIEW OF SYSTEMS Review of systems as above in the HPI. Other 12 systems unremarkable. Only complaint is that he has been having shortness of breath more so over the last couple of weeks. PHYSICAL EXAMINATION VITAL SIGNS: On exam blood pressure 100/60, heart rate 90, temperature max 97.7, room air sat 96. GENERAL: Patient is awake, alert, very flat affect. HEENT: Head is normocephalic, atraumatic. Pupils equal and reactive. Oral mucosa pink, moist. He has a scar of his right nares. NECK: Supple. No JVD. HEART: Sounds S1-S2, grade 3/6 systolic murmur best on the left sternal border. LUNGS: Clear to auscultation. No wheezes, rales or rhonchi. ABDOMEN: Soft, nontender. No masses or organomegaly. EXTREMITIES: No cyanosis, clubbing or edema. SKIN: He has multiple small areas of healing scabs to his forearms and lower extremities where he scratches himself from his anxiety. LABORATORY FINDINGS Shows hemoglobin 9.6, hematocrit 29, white cell count of 8, platelet count of 261, sodium 137, potassium 4.5, BUN of 86 with a creatinine of 6.79. Valproic acid was 23. FEV-1 of 1.47. Frailty score 4/4. STS score risk mortality 5.2. IMPRESSION 1. This gentleman has greater than 4 mortality risk with a 5.2, also 4/4 frailty. Comorbidities include diabetes mellitus insulin dependent, end stage renal disease on dialysis, schizophrenia, poor mobility, all the above. Recommendations would be evaluation for transcatheter aortic valve replacement at this time. Dictated by: DAVY Ovalles MD DAVID Frankel/MATHEW /5:57 PM /8:08 AM
--- NOTE | 2017-01-10 10:16 | RSPPFT ---
DATE OF PROCEDURE: 01/03/17 COMMENTS: VOLUMES DYNAMIC: FVC and FEV1 severely reduced. FLOWS: FEV1% normal; FEF 25-75 severely reduced. IMPRESSION: Severe reduction in FVC and FEV1 with terminal airflow obstruction. This may be a restrictive defect and full lung volumes would be necessary for clarification.
== END 2017-01-03 16:45 ==
LOC: HDOC 05:42 → HDIC 05:43 → HDOC 16:45
PROVIDERS: ATTEND Internal Medicine
DX: I35.0 Nonrheumatic aortic (valve) stenosis (principal); I35.1 Nonrheumatic aortic (valve) insufficiency; I25.10 Atherosclerotic heart disease of native coronary artery without angina pectoris; I27.20 Pulmonary hypertension, unspecified; I13.2 Hypertensive heart and chronic kidney disease with heart failure and with stage 5 chronic kidney disease, or end stage renal disease; I50.9 Heart failure, unspecified; N18.6 End stage renal disease; E11.22 Type 2 diabetes mellitus with diabetic chronic kidney disease; F20.9 Schizophrenia, unspecified; Z99.2 Dependence on renal dialysis; Z01.818 Encounter for other preprocedural examination; Z79.4 Long term (current) use of insulin; Z79.82 Long term (current) use of aspirin
CPT/HCPCS: 71020; 74174; 82040; 82948; 83036; 86850; 86900; 86901; 86902; 86920; 86922; 87641; 93312; 93320; 93325; 93456; 93880; 94010; 99152; 99153; C1760; C1769; C1893; G0269; J1644; J2250; J3010; Q9967

== ENCOUNTER → 2017-01-20 | Day surgery (SDC) | payer MEDICARE, OTHER ==
[~2017-01-20] MED LIST changes: -AMMO12LO TOPICAL; +LORA0.5T PO; +MIRA3350 PO; +MIRT30TA PO; +OMEP20TA93 PO; +PERC5TAB12 PO; -POLY17S PO; +PROPOFOL 200 MG/20 ML AMP IV ONE; +VIST25CA PO
--- NOTE | 2017-01-20 11:57 | GIPROC ---
[facility] [address], [address] COLONOSCOPY PROCEDURE REPORT EXAM DATE: 01/20/2017 PATIENT NAME: Hemal Herron MR #: [id number] BIRTHDATE: 1960 ENDOSCOPIST: Niraj Hollins MD ORDER #: [id number] FITTER MECHANIC: Eva Sue RN STATUS: outpatient INDICATIONS: The patient is a 56 yr old male here for a colonoscopy due to average risk patient for colon cancer PROCEDURE PERFORMED: Colonoscopy, incomplete MEDICATIONS: None and Per Anesthesia. PREP QUALITY: poor ESTIMATED BLOOD LOSS: None CONSENT: The patient understands the risks and benefits of the procedure and understands that these risks include, but are not limited to: sedation, allergic reaction, infection, perforation and/or bleeding. Alternative means of evaluation and treatment include, among others: physical exam, x-rays, and/or surgical intervention. The patient elects to proceed with this endoscopic procedure. medical equipment was checked for proper function. Hand hygiene and appropriate measures for infection prevention was taken. After the risks, benefits and alternatives of the procedure were thoroughly explained, Informed consent was verified, confirmed and timeout was successfully executed by the treatment team. A digital exam revealed no abnormalities of the rectum The EC-[id number] ([id number]) endoscope was introduced through the anus and advanced to the sigmoid colon. The instrument was then slowly withdrawn as the colon was fully examined. COLON FINDINGS: The colonic mucosa appeared normal in the sigmoid colon. Retroflexion was not performed The scope was then completely withdrawn from the patient and the procedure terminated. ADVERSE EVENTS: There were no complications. IMPRESSIONS: 1. The colonic mucosa appeared normal in the sigmoid colon 2. Retroflexion was not performed 3. Revealed no abnormalities of the rectum RECOMMENDATIONS: Follow-up: GI Clinic PRN RECALL: Return 1 month Colonoscopy patient will need a two day prep with golytle ASA3 needs to be done at [facility] Niraj Hollins MD eSigned: Niraj Hollins MD 01/20/2017 11:56 AM cc: Martín Enriquez
== END | disposition home or self-care (01) ==
LOC: ESDC 09:49
PROVIDERS: ATTEND Internal Medicine Gastroenterology
DX: Z12.11 Encounter for screening for malignant neoplasm of colon (principal); E11.9 Type 2 diabetes mellitus without complications; Z79.4 Long term (current) use of insulin
CPT/HCPCS: 82948

== ENCOUNTER 2017-02-07 05:28 | Inpatient (IN) | payer MEDICARE, OTHER ==
[2017-02-07] VITALS (10 sets, daily range): BP systolic 90–121; BP diastolic 38–67; PULSE 80–117; RESP 14–20; TEMP 97.7–99; O2SAT 95–99
[~2017-02-07] VITALS: Ht 190.5 cm; Wt 91.0 kg
[~2017-02-07 05:28] MED LIST changes: -PROPOFOL 200 MG/20 ML AMP IV ONE
[2017-02-07] MEDS ORDERED: POVIDONE IODINE 5% (ANTISEPSIS KIT) EACH NARE PRN (06:00)
[2017-02-07] MEDS ORDERED: CHLORHEXIDINE GLUCONATE 2 % 1 PACK (2 CLOTHS) TOPICAL PRN ×2 (06:00→06:15)
[2017-02-07] MEDS ORDERED: MUPIROCIN 2% OINT 1 APPLIC/GM SYRINGE EACH NARE PRN (06:00)
[2017-02-07] MEDS ORDERED: ceFAZolin 2 GM PREMIX 50 ML IV PRN (06:00)
[2017-02-07] MEDS ORDERED: LACTATED RINGER'S 1000 ML IV PRN (06:15)
[2017-02-07] MEDS ORDERED: POVIDONE IODINE 5% (ANTISEPSIS KIT) 4 APPLICATIONS EACH NARE PRN (06:15)
[2017-02-07] MEDS ORDERED: METOPROLOL TARTRATE 25 MG TAB PO PRN (06:15)
[2017-02-07] MEDS ORDERED: INSULIN HUMAN REGULAR 1,000 UNITS/10 ML VIAL SQ PRN (06:15)
[2017-02-07] MEDS ORDERED: SODIUM CHLORID 0.9% 500 ML IV PRN (06:15)
[2017-02-07 06:24] LABS: AUTOMATED NEUTROPHIL # 5.7 TH/MM3 (1.8-7.7); BASOPHIL # 0.1 TH/MM3 (0-0.2); BASOPHIL % 0.9 % (0.0-2.0); EOSINOPHIL # 0.2 TH/MM3 (0-0.4); EOSINOPHIL % 2.2 % (0.0-4.0); HEMATOCRIT 26.4 % (39.0-51.0); HEMO FLAGS DIFF FINAL; LYMPH % 13.6 % (9.0-44.0); LYMPHOCYTE # 1.1 TH/MM3 (1.0-4.8); MEAN CELL VOLUME 92.8 FL (80.0-100.0); MEAN CORPUSCULAR HEMOGLOBIN 32.3 PG (27.0-34.0); MEAN CORPUSCULAR HGB CONC 34.8 % (32.0-36.0); MONO % 14.2 % (0.0-8.0); NEUT % 69.1 % (16.0-70.0); PLATELET COUNT 186 TH/MM3 (150-450); RED BLOOD COUNT 2.85 MIL/MM3 (4.50-5.90); RED CELL DISTRIBUTION WIDTH 14.6 % (11.6-17.2); WHITE BLOOD COUNT 8.2 TH/MM3 (4.0-11.0)
[2017-02-07 06:37] LABS: APTT (PATIENT) 26.4 SEC (24.3-30.1); INTERNATIONAL NORMALIZED RATIO 1.2 RATIO; PROTHROMBIN TIME - PATIENT 11.7 SEC (9.8-11.6)
[2017-02-07 06:53] LABS: BICARBONATE 27.4 MEQ/L (21.0-32.0); POTASSIUM 4.6 MEQ/L (3.5-5.1)
[2017-02-07] MEDS ORDERED: ASPIRIN 325 MG TAB PO SCH (07:00)
[2017-02-07] MEDS ORDERED: HEPARIN-NS/PF INJ 2,500 ML ONE (07:23)
[2017-02-07] MEDS ORDERED: CUSTODIOL HTK IRR SOLN 0 ML ONE (07:39)
[2017-02-07] MEDS ORDERED: HEPARIN SODIUM - IV 10,000 UNITS/10 ML VIAL ONE (07:53)
[2017-02-07] MEDS ORDERED: PROTAMINE SULFATE 50 MG/5 ML VIAL ONE (07:53)
[2017-02-07] MEDS ORDERED: IOHEXOL IV ONE (08:50)
--- NOTE | 2017-02-07 10:16 | PD.OP ---
cc: Doe Jay MD; Luc Moy MD; Katherine Andino MD; Nash Garcia MD Operative Report Date of Surgery: Feb 07, 2017 Preoperative Diagnosis: (1) Diastolic CHF due to valvular disease (2) Aortic valve stenosis, critical Postoperative Diagnosis: same Procedure: Transcatheter aortic valve replacement with a 34 Corevalve Evolut R Balloon aortic valvuloplasty with a 20 True flow balloon Right and left percutaneous femoral artery access with Perclose closure of both. Aortography Fluoroscopy Anesthesia: Dr. Pardo Surgeon: Katherine Andino Co-surgeon - Dr. Monte Test Desk Supervisor(s): Dr. Jose Moy Operation and Findings: The risks, benefits, complications, treatment options, and expected outcomes were discussed with the patient. The possibilities of reaction to medication, pulmonary aspiration, perforation of viscus, bleeding, recurrent infection, the need for additional procedures, failure to diagnose a condition, and creating a complication requiring transfusion or operation were discussed with the patient. The patient concurred with the proposed plan, giving informed consent. The site of surgery properly noted/marked. The patient was taken to [facility] operating room, identified as Hemal Germaine and the procedure verified as Transcatheter Aortic Valve Replacement. A Time Out was held and the above information confirmed. Standard monitoring lines and Lara catheter were placed. General anesthesia was induced. The patient was prepped and draped in a sterile fashion. Initially, left femoral arterial access was acquired using a Seldinger percutaneous technique. The details of this procedure were dictated under separate note by cardiology. Once a pigtail was placed on the noncoronary cusp and an AL2 was positioned in the left coronary cusp and a temporary transvenous pacemaker wire was placed in the right ventricular apex and tested, the right femoral artery was accessed using a needle followed by a guidewire under fluoroscopic guidance. The patient was heparinized. Serial dilators were used to dilate the right femoral artery to 16 Sammarinese caliber. A 16F sheath was then inserted into the external iliac artery up to the distal abdominal aorta. Arch aortography was performed to define the implant view. A balloon aortic valvuloplasty was then performed using a 20 x 3.5 True flow balloon with the patient being paced at 120 beats per minute. A 34 Corevalve Evolut R transcatheter aortic valve was then positioned in the annulus and deployed with the patient being paced at 100 beats per minute. Following deployment, the valve apparatus was withdrawn and arch aortography and DAISY were performed to assess the valve. The valve had no significant perivalvular leaks. Gradients were then measured and the sheath was slowly withdrawn to the distal right common iliac artery under fluoroscopic guidance. A runoff arteriogram was then performed to assess the aortic bifurcation and common iliac vessels. No dissections or perforations were noted. Therefore, the sheath was removed and and the artery closed with Perclose devices. The left FA was closed n a similar manner. Protamine was administered. Sterile dressings were placed. At the end of the operation, all sponge, instruments, and needle counts were correct. The patient was transferred to the CVICU in stable condition. Findings: Heavily calcified trileaflet aortic valve Implants: 34 Evolut R tissue valve Complications: none Disposition: to CVICU in stable condition Katherine Andino MD Feb 07, 2017 10:16
--- NOTE | 2017-02-07 10:37 | PD.PROCEDR ---
Procedure Note Procedure Procedure: Transesophageal Echocardiography Diagnosis: Severe aortic stenosis Indications: Preoperative planning for transcatheter aortic valve replacement Consent: Obtained Anesthesia: General endotracheal anesthesia Description of the Procedure: The patient was sedated and mechanically ventilated. The echo probe was inserted easily and without resistance. At the conclusion of the procedure, the echo probe was removed. Please see detailed echocardiogram report for formal findings. Preliminary Findings (not confirmed): Pre-procedure: 1) normal biventricular function 2) severe aortic stenosis 3) severe LVOT calcification 4) mzqrhyjr-[id number] mitral regurgitation 5) evidence of left atrial hypertension 6) no evidence of intra-atrial shunting by color flow Doppler 7) no pericardial effusion Post-procedure: 1) s/p successful placement of transcatheter aortic valve 2) no evidence of bioprosthetic valve stenosis 3) dkozn-ef-hiyc perivalvular leak 4) moderate mitral regurgitation 5) no pericardial effusion The patient tolerated the procedure well with no hemodynamic instability. There were no immediate complications noted. There was minimal EBL. I personally performed the procedure. King Merida MD Feb 07, 2017 10:37
--- NOTE | 2017-02-07 10:54 | PD.CONS ---
[facility] Service Critical Care Medicine Consult Requested By Dr. 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 He was evaluated by 2 cardiac surgeons need to be not a surgical candidate. He underwent elective transcatheter valve replacement today, which was compensated by a moderate amount of bleeding from the right femoral artery at the conclusion of the case. His hemoglobin dropped from a baseline around 8-9 g/dL down to 5.5 g/ dL. He remained hemodynamically stable throughout the procedure. He is being actively transfused 1 unit PRBC on arrival to the CVICU. He rests the CVICU extubated in stable condition. Due to his arousal from anesthesia and his somnolence no additional information is obtainable from the patient. The remainder of the history is obtained from the medical record. 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 Anxiety End-stage renal disease on intermittent hemodialysis Friday, , Friday : Followed by Felix Antony Past Surgical History Left hip hemiarthroplasty EEG Colonoscopy Skin cancer removed from right naris Reported Medications Aspirin Calcium Depakote 500 mg twice a day Geodon 20 mg twice a day Hydroxyzine as needed Levemir 5 units subcutaneous daily at bedtime Ativan 0.5 mg by mouth as needed for anxiety Metoprolol 12-1/2 mg by mouth twice a day Mirtazapine at bedtime Sliding scale insulin Omeprazole Protonix Prozac 20 mg by mouth daily at bedtime Renvela 800 mg with meals Sensipar Vitamins Zofran Active Ordered Medications See MAR Family History Reviewed the chart and found to be noncontributory to his acute illness Social History Denies tobacco or alcohol. Has lived in a full assisted living facility for the last 7 years. Physical Exam Vital Signs Vital Signs Date Time Temp Pulse Resp B/P (MAP) Pulse Ox O2 Delivery O2 Flow Rate FiO2 02/07/17 08:01 99.0 96 17 115/64 (81) 96 Physical Exam GENERAL: Middle-aged male who appears much older than stated age, lying in bed, arousing from anesthesia HEENT: Normocephalic. Atraumatic. Pupils equal, round, reactive, conjugate. Mucous membranes are moist NECK: Trachea is midline. There is no JVD. Right IJ introducer sheath with transvenous pacer in place, dressing intact, site clean and dry. CHEST: Equal chest rise. Face mask oxygen. Unlabored. CARDIOVASCULAR: Normal rate, regular rhythm. Sinus by telemetry. Not currently paced. ABDOMEN: Soft, nontender, nondistended. No guarding. MUSCULOSKELETAL: Pulses 2+. No peripheral edema. Bilateral groin incisions with small dressings which are clean dry and intact. No evidence of hematoma. Distal pulses are dopplerable. NEUROLOGICAL: RASS -2. Arousing from anesthesia. Moves all extremities. No focal deficits. Laboratory Laboratory Tests Test 02/07/17 06:10 White Blood Count 8.2 Red Blood Count 2.85 Hemoglobin 9.2 Hematocrit 26.4 Mean Corpuscular Volume 92.8 Mean Corpuscular Hemoglobin 32.3 Mean Corpuscular Hemoglobin Concent 34.8 Red Cell Distribution Width 14.6 Platelet Count 186 Mean Platelet Volume 9.0 Neutrophils (%) (Auto) 69.1 Lymphocytes (%) (Auto) 13.6 Monocytes (%) (Auto) 14.2 Eosinophils (%) (Auto) 2.2 Basophils (%) (Auto) 0.9 Neutrophils # (Auto) 5.7 Lymphocytes # (Auto) 1.1 Monocytes # (Auto) 1.2 Eosinophils # (Auto) 0.2 Basophils # (Auto) 0.1 CBC Comment DIFF FINAL Differential Comment Prothrombin Time 11.7 Prothromb Time International Ratio 1.2 Activated Partial Thromboplast Time 26.4 Blood Urea Nitrogen 77 Creatinine 6.00 Random Glucose 106 Calcium Level 10.5 Sodium Level 137 Potassium Level 4.6 Chloride Level 99 Carbon Dioxide Level 27.4 Anion Gap 11 Estimat Glomerular Filtration Rate 10 Result Diagram: 02/07/1710 02/07/17 0610 Assessment and Plan Assessment and Plan Assessment: 56-year-old male with history of schizophrenia, end-stage renal disease on intermittent hemodialysis, and severe symptomatic aortic stenosis now postop day 0 status post transcatheter aortic valve replacement, complicated by moderate amount of intraoperative bleeding with resultant anemia of acute blood loss. Agree with transfusing PRBCs given his recent active blood loss, although this is controlled at this point with no hemodynamic instability. Given his potassium at the end of the case of 4.7, I think it is reasonable to get nephrology involved and asked her opinion of her whether or not HD today would be of benefit for this patient to optimize his volume status and his electrolytes. We will admit him to the CVICU and watch him very closely , pain particular attention to his neurovascular checks and his groins for any evidence of worsening hematoma. s/p TAVR with groin access 02/[address] Monte Frequent neurovascular checks Maintenance IV fluids Watch urine output closely: Patient is nonoliguric, but makes minimal urine End-stage renal disease on intermittent hemodialysis Friday, , Friday Consult nephrology Appreciate neurology recommendations: Would consider dialysis today to optimize volume status and electrolytes in the setting of transfusion of PRBCs and volume shifts associated with bleeding Daily BMP for electrolyte monitoring Anemia of acute blood loss superimposed on anemia of chronic disease secondary to end-stage renal disease Transfuse 1 unit PRBCs. May need a second unit of PRBCs. We'll check hemoglobin after first unit. Ask nephrology's advice over recommendations on dialysis today versus tomorrow Would aim to keep hemoglobin greater than 7 unless active bleeding Daily CBC with serial hemoglobins tonight Hypertension Hold home antihypertensives in the setting of recent bleeding We'll add back antihypertensives as needed Goal systolic blood pressure less than 180 Schizophrenia Restart home antipsychotics Patient has a propensity to pick at things. We'll order restraints for safety given he has high risk lines in place Diabetes Sliding scale insulin SCDs Home PPI Disposition: Admit to ICU. Critical care medicine team will continue to follow the patient on a remain in the CVICU. Code Status Full Code Discussed Condition With Dr. Monte, Dr. Andino, King Elder MD Feb 07, 2017 10:54
[2017-02-07] MEDS ORDERED: LORazepam 0.5 MG TAB PO PRN (11:00)
[2017-02-07] MEDS ORDERED: CALCIUM CARBONATE 500 MG CHEWABLE TAB PO PRN (11:00)
[2017-02-07] MEDS ORDERED: RESP: ALBUTEROL 2.5 MG/IPRATROPIUM 0.5 MG NEB (PRN) INH (11:00)
[2017-02-07] MEDS ORDERED: DEXTROSE 50% IN WATER 50 ML VIAL(D50) IV PUSH PRN (11:00)
[2017-02-07 11:19] LABS: HEMATOCRIT 23.4 % (39.0-51.0); MEAN CELL VOLUME 92.1 FL (80.0-100.0); MEAN CORPUSCULAR HEMOGLOBIN 31.1 PG (27.0-34.0); MEAN CORPUSCULAR HGB CONC 33.8 % (32.0-36.0); PLATELET COUNT 155 TH/MM3 (150-450); RED BLOOD COUNT 2.54 MIL/MM3 (4.50-5.90); REVIEW FLAG FINAL; WHITE BLOOD COUNT 7.6 TH/MM3 (4.0-11.0)
[2017-02-07] MEDS ORDERED: SODIUM CHLOR 0.9% 1000 ML INJ 1,000 ML IV PRN (11:29)
[2017-02-07] MEDS ORDERED: SODIUM CHLOR 0.9% 1000 ML INJ 1,000 ML OTHER PRN ×2 (11:29)
[2017-02-07] MEDS ORDERED: HEPARIN SODIUM - IV 10,000 UNITS/10 ML VIAL PRN (11:30)
[2017-02-07] MEDS ORDERED: cloNIDine HCL 0.1 MG TAB PO PRN (11:30)
[2017-02-07] MEDS ORDERED: HEPARIN SODIUM - IV 10,000 UNITS/10 ML VIAL IV FLUSH PRN (11:30)
[2017-02-07] MEDS ORDERED: NITROGLYCERIN 0.4 MG SL 25 TABS/BTL SL PRN (11:30)
[2017-02-07] MEDS ORDERED: diphenhydrAMINE HCL 25 MG CAP PO PRN (11:30)
[2017-02-07] MEDS ORDERED: ACETAMINOPHEN 325 MG TAB PO PRN (11:30)
[2017-02-07] MEDS ORDERED: ALBUMIN 25% INJ 100 ML IV PRN (11:30)
[2017-02-07] MEDS ORDERED: MANNITOL 12.5 GM/50 ML VIAL IV PRN (11:30)
[2017-02-07] MEDS ORDERED: SODIUM CHLORIDE 0.9% FLUSH 10 ML FLUSH IV FLUSH PRN (11:30)
[2017-02-07] MEDS ORDERED: GENTAMICIN SULFATE (DIALYSIS USE ONLY) 20 MG/2 ML VIAL OTHER PRN (11:30)
[2017-02-07 11:37] LABS: BICARBONATE 27.4 MEQ/L (21.0-32.0); POTASSIUM 4.6 MEQ/L (3.5-5.1)
[2017-02-07] MEDS ORDERED: ONDANSETRON ODT 4 MG TAB PO PRN (12:15)
[2017-02-07] MEDS ORDERED: CLOPIDOGREL 300 MG TAB PO ONE (12:15)
[2017-02-07] MEDS: INSULIN NovoLIN REGULAR SUPPLEMENTAL SCALE SQ SCH ×3 (12:15→20:52)
--- NOTE | 2017-02-07 12:17 | PD.CARD ---
Cardiology Procedure Note Procedure Note: OPERATIVE DIAGNOSIS: 1. Severe symptomatic aortic stenosis with preserved LV systolic function. 2. Shortness of breath, Chronic diastolic heart failure, [place] [employer] of IIIsx. 3. Hypertension. 5. COPD 6. Schizophrenia 7. ESRD on HD POSTOPERATIVE DIAGNOSIS 1. Severe symptomatic aortic stenosis with preserved LV systolic function. 2. Shortness of breath, Chronic diastolic heart failure, [place] [employer] of IIIsx. 3. Hypertension. 5. COPD 6. Schizophrenia 7. ESRD on HD OPERATIVE PROCEDURE Right transfemoral transaortic valve replacement with a 34 mm Evolut Pro Medtronic valve, Aortic root angiogram. Placement of a pigtail and AL1 for angiography. Temporary pacemaker insertion. Perclose left and right common femoral arteries. Mynx left common femoral arteries ANESTHESIA Dr. Pardo SURGEON: Dr. Katherine Andino SOCIAL SECURITY BENEFITS INTERVIEWER: cnc wood lathe operator: Dr. Mell Fam. Fws Faculty Assistant: Dr. Nash Garcia. ECHO-SUPPORT: Dr. Marco Merida INDICATIONS 56 year-old M with severe symptomatic aortic stenosis with progressive symptoms of heart failure NYHA III. The patient has been evaluated for aortic valve replacement. It was felt that he will be an intermediate risk for conventional aortic valve replacement on the basis of frailty, STS score and comorbidities. He has been evaluated and accepted for transcatheter aortic valve replacement after extensive review of patient's chart. The risks of the procedure have been discussed with the patient at length and consents have been signed and to proceed as planned. DESCRIPTION OF PROCEDURE Under general anesthesia a transesophageal echocardiogram was placed in the esophagus which was used throughout the procedure to evaluate aortic valve as well as the other valve structures. Then using 1% lidocaine for local anesthesia and a micropuncture kit, the left femoral artery entered percutaneously and a 5-Dutch sheath was inserted. Then pigtail catheter was advanced over a 0.035 wire around the arch of the aorta and placed in the noncoronary cusp for in order to get multiple views for deployment of the valve. Then using 1% lidocaine for local anesthesia a micropuncture kit, the right TF valve arterial access site was accessed. Angiogram with angiography was performed through the micropuncture sheath to confirm adequate position and/ or any complications. Then 8-Dutch sheath was inserted into the left common femoral artery. This was followed by Preclosing the artery with three Perclose devices. The patient was then fully heparinized with an ACT checked. Then a super core 0.05 wire was advanced into the ascending aorta, followed by insertion the common of a 14Fr Sheath in the femoral artery. Then we used an AL1 over a straight 300 cm stiff, Amplatz wire to cross the aortic valve. The wire was left in the mid left ventricular cavity. Then a 6-Dutch pigtail was inserted over the wire. This was followed by exchanging the wire with a Confida wire. Then the after removing the 12-Dutch sheath the valve was inserted the Valve sheathless thru the right common femoral artery. After confirmation of position of the device the valve was self expanded. Post deployment there was a trace sign PVL on transesophageal echocardiogram. The patient tolerated the procedure well without complications. The catheter was removed with pullback the system to the aortic aorta and then it was removed from the left femoral artery and Perclose. Finally the pigtail was removed. The the sheath on the left side were removed and pressure and Mynx. This concluded the operation. COMPLICATIONS: None. DISPOSITION Admit to CVICU a stable condition for post cath care. Dual antiplatelet agent with aspirin and Plavix. Early extubation, out of bed after bedrest. The temporary pacemaker to remain in place for the next 24 hours. Telemetry monitoring, EP consult per protocol, resume home medications. Consult Nephrology for HD. Doe Jay MD, MPH, [facility] Doe Jay MD Feb 07, 2017 12:17
[2017-02-07] MEDS: SEVELAMER CARBONATE 800 MG TAB PO SCH ×2 (12:30→17:18)
--- NOTE | 2017-02-07 12:42 | MH ---
cc: JONATHAN ROJAS DATE OF ADMISSION 02/07/2017 DATE OF 1960 REASON FOR ADMISSION Elective aortic valve replacement. HISTORY OF PRESENT ILLNESS 56-year-old male with a significant past medical history of end-stage renal disease on dialysis, schizophrenia, diabetes, anemia, recent hip replacement who was on refer to the [facility] TAVR team for severe symptomatic aortic stenosis. He has a history of recent admissions for shortness of breath and acute on chronic diastolic heart failure. He underwent a workup including an echo which revealed severe aortic stenosis. Cardiac catheterization demonstrated normal coronary arteries. He was evaluated by two CT surgeons who deemed him intermediate risk for conventional AVR and referred him for TAVR. STS score of 5.2% and 4/4 frail. The patient presents today for elective percutaneous aortic valve replacement. REVIEW OF SYSTEMS Negative except for what is mentioned in the HPI. PAST MEDICAL HISTORY 1. End-stage renal disease 2. Schizophrenia 3. Diabetes 4. Anemia 5. Diastolic dysfunction 6. On dialysis Friday, and Saturdays. PAST SURGICAL HISTORY 1. Hip replacement 2. Upper endoscopy 3. Cardiac catheterization ALLERGIES MADALYN SOCIAL HISTORY No smoking, no alcohol use. No illicit drug use. FAMILY HISTORY Noncontributory PHYSICAL EXAM VITAL SIGNS: Temperature 97, respiratory rate 20, heart rate 70, blood pressure 110/80, O2 sat is 100% room air. GENERAL: Awake, alert, and oriented x3 in no acute distress. NECK: No JVD or carotid bruits. HEART: Regular rate and rhythm. A 3/6 systolic ejection murmur. LUNGS: Benign. No wheezes, rhonchi so rales. ABDOMEN: Positive bowel sounds, soft, nontender, nondistended. EXTREMITIES: No cyanosis or edema. Pulses throughout. DATA STS sore of 5.2%, frailty 4/4. EKG sinus rhythm with a right bundle branch block. PFTs shows severe reduction FVC and FEV-1. Echocardiogram shows aortic valve velocity of 5 and mean gradient of 6 and a calculated valve area of 0.35 and ejection fraction of 60%. There is moderate MR. A cardiac cath shows nonobstructive coronary artery disease. TAVR CTA shows a short annulus of 24 long valve of 34, perimeter of 93.7. There is opacification throughout the LVOT. The aortic valve is trileaflet. The sinus of Valsalva diameter is 31. The STJ is 33. The left coronary height is 15. The right coronary height is 19. The iliacs and the minimal luminal diameter on the right is 8.9, on the left is 6.7. ASSESSMENT/PLAN 56-year-old male with severe symptomatic aortic stenosis, chronic diastolic dysfunction, schizophrenia, end-stage renal disease on hemodialysis who presents for an elective TAVR. The risks, benefits of TAVR including but not limited to infection, bleeding, acute kidney injury, neurovascular trauma, complete AV block, emergent bypass surgery and have been explained to the patient and the patient and family understands the risks and they are willing to proceed. PLAN Keep n.p.o. for right TF TAVR with a 34 mm Evolut Medtronic valve today. MD NIURKA Bravo/ZABRINA /12:04 PM /12:24 PM DEVANTE
[2017-02-07] MEDS: GELATIN 12 MM/7 MM FOAM TOP PRN (14:11)
[2017-02-07] MEDS: EPOETIN ALFA 10,000 UNITS/ML VIAL IV PUSH PRN (14:11)
[2017-02-07] MEDS: hydrOXYzine HCL 25 MG TAB PO SCH ×3 (15:32→23:54)
[2017-02-07] MEDS: ASPIRIN 81 MG CHEW TAB PO SCH (15:32)
--- NOTE | 2017-02-07 15:38 | MB ---
cc: ALLEY VELASQUEZ MD DATE OF CONSULTATION: 02/07/2017. REASON FOR CONSULTATION: End-stage renal disease on hemodialysis for management. HISTORY OF PRESENT ILLNESS: This is a 56-year-old male with past medical history of hypertension, diabetes mellitus, ischemic heart disease with diastolic dysfunction, history of schizophrenia, chronic anemia, end-stage renal disease on hemodialysis three times per week who was admitted for TAVR for severe symptomatic aortic stenosis. I was called to see the patient for management of dialysis. He has been on hemodialysis Friday, and Friday. The patient had his dialysis done yesterday. Preoperatively his hemoglobin was 9.2, and then it dropped to 7.9 so I was called again. The patient will need blood transfusion and that was the reason that the hemodialysis was arranged, to make sure this does not get any fluid overload with blood transfusion. The patient just got one unit and the repeat hemoglobin is 7.9. He is currently on hemodialysis and denies any chest pain. He underwent a TAVR which was done today. He denies any nausea or vomiting. No chest pain. No abdominal pain. PAST MEDICAL HISTORY: There is a past medical history of: 1. Hypertension 2. Ischemic heart disease. 3. Diabetes mellitus. 4. Schizophrenia. 5. Chronic anemia. 6. End-stage renal disease on hemodialysis. 7. History of diastolic dysfunction. PAST SURGICAL HISTORY: 1. surgery. 2. Cardiac catheterization. 3. Endoscopy. 4. Hip replacement. REVIEW OF SYSTEMS: Denies any headache, dizziness or blurring of vision. He does not have any shortness of breath. No chest pain. No palpitations. No nausea or vomiting. Denies any abdominal pain. Currently he is on hemodialysis. SOCIAL HISTORY: He lives in an assisted living facility. There is no history of smoking or alcoholism. FAMILY HISTORY: Noncontributory. ALLERGIES: HE IS ALLERGIC TO FEXOFENADINE. MEDICATIONS: Currently he is on the following medications: 1. Normal saline at 125 an hour. 2. Depakote ER 500 milligrams twice a day. 3. Geodon 80 milligrams twice a day. 4. Vitamin C 500 milligrams twice a day. 5. 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 6. Vitamin D3 2000 units once a day. 7. Sensipar 30 milligrams daily. 8. MiraLax 17 grams daily. 9. Aspirin 81 milligrams once a day. 10. Plavix 75 milligrams daily. 11. Prozac 20 milligrams once a day. 12. Remeron 30 milligrams at bedtime. 13. DuoNeb nebulizer. 14. Protonix 40 milligrams q. 12 hours. 15. Atarax 25 milligrams q. 6 hours. 16. Renvela 800 milligrams three times a day. 17. Cephazolin [employer] information clerk. 18. Epogen with dialysis. PHYSICAL EXAMINATION: GENERAL: On examination, the patient is awake and alert and he is currently on hemodialysis. VITAL SIGNS: His last blood pressure was 106/54, temperature 97.7. HEAD, EYES, EARS, NOSE, THROAT: The pupils mid-constricted. Nonicteric sclerae. Conjunctivae are pale. NECK: The neck is supple. JVD is not elevated. LUNGS: The patient has bilateral good air entry with occasional wheezing. HEART: S1 and S2 regular rhythm. ABDOMEN: Abdomen soft and lax. There is no tenderness. Bowel sounds positive. EXTREMITIES: He has mild edema and there are superficial abrasions in both lower legs covered with a dressing. INVESTIGATIONS: White blood cell count is 7.6, hemoglobin 7.9, platelet count of 155,000. Sodium 136, potassium 4.6, chloride 99, bicarbonate 27.4, BUN 74, creatinine 6.1, calcium is 9.7. INR is 1.2. IMAGING STUDIES: The patient has no recent imaging studies. ASSESSMENT AND PLAN: 1. Aortic stenosis post TAVR. 2. End-stage renal disease on hemodialysis. 3. Anemia with decrease in hemoglobin. 4. Diabetes mellitus. 5. History of schizophrenia. 6. Diabetes mellitus. The patient had a TAVR done this morning and he tolerated the procedure well. His blood pressure is stable but on the lower side. Currently he is on hemodialysis. He got one unit of blood transfusion. Need to follow the hemoglobin. He is also getting Epogen. Will dialyze him tomorrow to put him on his regular schedule and possibly he will be discharged tomorrow. Thank you the consultation, and I will follow the patient while he is in the hospital. Nicolas Q. Jumani, MD AQJ/JCC /2:51 PM /3:10 PM
[2017-02-07] MEDS: RESP: ALBUTEROL 2.5 MG/IPRATROPIUM 0.5 MG NEB (SCH) INH ×2 (16:27→19:18)
--- NOTE | 2017-02-07 18:08 | MB ---
cc: SHERI LOPES M.D. DATE OF CONSULTATION: 02/07/17 REASON FOR CONSULTATION Evaluation status post TAVR. Right bundle branch block. HISTORY OF PRESENT ILLNESS Mr. Herron is a 56-year-old gentleman with end-stage renal disease on hemodialysis, schizophrenia, diabetes mellitus, anemia, aortic valve stenosis who was referred for TAVR. Post procedure I was consulted for evaluation and management. The chart was reviewed. The patient was evaluated. ALLERGIES MADALYN. SOCIAL HISTORY The patient denies smoking and drinking. FAMILY HISTORY Noncontributory to his current medical condition. MEDICATIONS The patient at home he is on - 1. Sensipar. 2. MiraLax. 3. Plavix. 4. Depakote ER. 5. Prozac. 6. Remeron. 7. Protonix. 8. Geodon. 9. Renvela. 10. Zofran. 11. Aspirin. REVIEW OF SYSTEMS He refer no chest pain, no chest discomfort, no tachyarrhythmia. PHYSICAL EXAMINATION GENERAL: Alert, fully oriented. VITAL SIGNS: His blood pressure 106/52, pulse 90, respiratory rate 18. LUNGS: Ventilated. CARDIOVASCULAR: S1, S2, regular. ABDOMEN: soft. No mass. EXTREMITIES: No edema. The right jugular area with a central line. Electrocardiogram shows right bundle-branch block. There was multiple spike in the telemetry. ASSESSMENT AND RECOMMENDATIONS Mr. Herron is stable. Right bundle-branch block is not new, this is old. He has multiple PVCs, that because a temporary pacer was pacing at 40, that was disconnected and put as a standby. At this point, my recommendation continue with current management, observation. If there be any change in the rhythm, I will be available for further evaluation. In the meantime, the patient is stable and can be discharged home in the morning. MD ZANDER Mckeon/LLOYD /5:40 PM /5:52 PM
[2017-02-07 18:17] LABS: HEMATOCRIT 26.8 % (39.0-51.0); REVIEW FLAG FINAL
[2017-02-07 19:56] LABS: BICARBONATE 31.6 MEQ/L (21.0-32.0)
[2017-02-07] MEDS ORDERED: SODIUM CHLORID 0.9% 500 ML INJ 500 ML IV ONE (20:15)
[2017-02-07] MEDS ORDERED: ALBUMIN 25% INJ 100 ML IV ONE (20:15)
[2017-02-07] MEDS ORDERED: CALCIUM GLUCONATE 10% 1 GM/10 ML VIAL IV PRN (20:15)
[2017-02-07] MEDS: DIVALPROEX SODIUM E.R. 500 MG TAB PO SCH (20:42)
[2017-02-07] MEDS: ZIPRASIDONE HCL 80 MG CAP PO SCH (20:42)
[2017-02-07] MEDS: PANTOPRAZOLE SOD 40 MG DELAYED RELEASE TAB PO SCH (20:42)
[2017-02-07] MEDS: ASCORBIC ACID 500 MG TAB PO SCH (20:42)
[2017-02-07] MEDS: FLUoxetine HCL 20 MG CAP PO SCH (20:43)
[2017-02-07] MEDS: MIRTAZAPINE 15 MG TAB PO SCH (20:43)
[2017-02-07] MEDS: SODIUM CHLOR 0.9% 1000 ML 1,000 ML IV SCH (22:00)
--- NOTE | 2017-02-07 22:24 | EKG ---
Date Performed: 02/07/2017 Time Performed: 16:44:24 PTAGE: 56 years EKG: Sinus rhythm with borderline 1st degree A-V block Demand pacing RBBB with left anterior fascicular block Cannot r ule out septal infarct - age undetermined Left ventricular hypertrophy Inferior ST-T changes are nons pecific Abnormal ECG NO PREVIOUS TRACING DOCTOR: Mickey Castro Interpretating Date/Time 02/07/2017 22:23:49
[2017-02-07 23:19] LABS: HEMATOCRIT 24.7 % (39.0-51.0); REVIEW FLAG FINAL
[2017-02-08] VITALS (13 sets, daily range): BP systolic 95–147; BP diastolic 44–63; PULSE 102–118; RESP 18–20; TEMP 97.8–99.8; O2SAT 96–97
[2017-02-08] MEDS: ONDANSETRON HCL 4 MG/2 ML VIAL IV PUSH PRN ×2 (00:40→06:13)
[2017-02-08] MEDS: INSULIN NovoLIN REGULAR SUPPLEMENTAL SCALE SQ SCH ×5 (03:00→21:00)
[2017-02-08] MEDS: RESP: ALBUTEROL 2.5 MG/IPRATROPIUM 0.5 MG NEB (SCH) INH ×4 (04:00→20:56)
--- NOTE | 2017-02-08 04:16 | RADRPT ---
EXAM DATE/TIME: 02/08/2017 02:39 [facility] COMPARISON: ABDOMEN KUB ONLY, May 25, 2016, 5:28. INDICATIONS : Confirm NG Placement MEDICAL HISTORY : Hypercholesterolemia. Hepatitis C. Hyperparathyroidism. GERD, HTN, Diabetes, Squamous cell Skin C ancer SURGICAL HISTORY : Tonsillectomy. Adenoidectomy. AV shunt. Dialysis. ENCOUNTER: Initial ACUITY: 1 day PAIN SCORE: 8/10 LOCATION: Bilateral Abdomen FINDINGS: 2 supine AP views of the abdomen. Nasogastric tube is in place with the tip in the gastric body regio n. Nonspecific bowel gas pattern with multiple air-filled loops of small bowel and air-filled distend ed colon noted. CONCLUSION: Nasogastric tube in place with the tip in the stomach. Rayo Cespedes MD on February 08, 2017 at 4:11 Board Certified Radiologist. This report was verified electronically.
[2017-02-08 04:45] LABS: HEMATOCRIT 25.3 % (39.0-51.0); MEAN CELL VOLUME 91.7 FL (80.0-100.0); MEAN CORPUSCULAR HGB CONC 33.8 % (32.0-36.0); PLATELET COUNT 167 TH/MM3 (150-450); RED BLOOD COUNT 2.76 MIL/MM3 (4.50-5.90); RED CELL DISTRIBUTION WIDTH 15.6 % (11.6-17.2); REVIEW FLAG FINAL; WHITE BLOOD COUNT 10.5 TH/MM3 (4.0-11.0)
[2017-02-08 05:22] LABS: BICARBONATE 32.1 MEQ/L (21.0-32.0); POTASSIUM 4.7 MEQ/L (3.5-5.1)
[2017-02-08] MEDS: hydrOXYzine HCL 25 MG TAB PO SCH ×3 (06:00→17:51)
[2017-02-08] MEDS: SODIUM CHLOR 0.9% 1000 ML 1,000 ML IV SCH ×2 (06:00→11:51)
[2017-02-08] MEDS: SEVELAMER CARBONATE 800 MG TAB PO SCH ×3 (08:00→17:00)
[2017-02-08] MEDS: ASPIRIN 81 MG CHEW TAB PO SCH (08:57)
[2017-02-08] MEDS: POLYETHYLENE GLYCOL 17 GM PKG PO SCH (08:58)
[2017-02-08] MEDS: DIVALPROEX SODIUM E.R. 500 MG TAB PO SCH ×2 (08:58→21:00)
[2017-02-08] MEDS: CLOPIDOGREL 75 MG TAB PO SCH ×2 (08:58→16:57)
[2017-02-08] MEDS: ZIPRASIDONE HCL 80 MG CAP PO SCH ×2 (08:58→21:00)
[2017-02-08] MEDS: CINACALCET HYDROCHLORIDE 30 MG TAB PO SCH (08:59)
[2017-02-08] MEDS: ASCORBIC ACID 500 MG TAB PO SCH ×2 (08:59→21:00)
[2017-02-08] MEDS: PANTOPRAZOLE SOD 40 MG DELAYED RELEASE TAB PO SCH ×2 (08:59→21:00)
[2017-02-08] MEDS: CHOLECALCIFEROL (VIT D3) 1000 UNIT TAB PO SCH (08:59)
[2017-02-08] MEDS ORDERED: NON-FORMULARY DRUG (B-Complex W/ C & Folic Acid (Rena-Vite) 1 TAB) PO SCH (09:00)
--- NOTE | 2017-02-08 09:28 | PD.CAR.PN ---
CVT Progress Note CVT: POD #: 1 Subjective/Hospital Course: c/o nausea and vomiting Objective: Vital Signs Date Time Temp Pulse Resp B/P (MAP) Pulse Ox O2 Delivery O2 Flow Rate FiO2 02/08/17 08:00 96 Nasal Cannula 2.00 02/08/17 07:42 95 Nasal Cannula 3.00 02/08/17 07:31 99.8 118 20 97 147/63 (91) 02/08/17 07:30 118 02/08/17 03:17 114 02/08/17 03:11 97.8 116 20 115/57 (76) 97 113/44 (67) 02/07/17 23:10 98.5 117 20 118/67 (84) 99 115/55 (75) 02/07/17 23:00 113 02/07/17 21:23 100/54 (69) 90/38 (55) 02/07/17 19:20 98.3 99 20 96/54 (68) 97 93/39 (57) 02/07/17 19:18 97 Nasal Cannula 2.00 02/07/17 19:00 99 02/07/17 15:22 90 02/07/17 15:00 98.0 93 14 106/52 (70) 97 104/40 (61) 02/07/17 15:00 80 02/07/17 11:00 80 02/07/17 11:00 98.0 80 14 106/54 (71) 95 121/44 (69) 02/07/17 11:00 80 02/07/17 11:00 97.7 Labs: Laboratory Tests Test 02/07/17 22:58 02/08/17 04:20 Hemoglobin 8.3 GM/DL (13.0-17.0) 8.6 GM/DL (13.0-17.0) Hematocrit 24.7 % (39.0-51.0) 25.3 % (39.0-51.0) White Blood Count 10.5 TH/MM3 (4.0-11.0) Red Blood Count 2.76 MIL/MM3 (4.50-5.90) Mean Corpuscular Volume 91.7 FL (80.0-100.0) Mean Corpuscular Hemoglobin 31.0 PG (27.0-34.0) Mean Corpuscular Hemoglobin Concent 33.8 % (32.0-36.0) Red Cell Distribution Width 15.6 % (11.6-17.2) Platelet Count 167 TH/MM3 (150-450) Mean Platelet Volume 8.9 FL (7.0-11.0) Blood Urea Nitrogen 55 MG/DL (7-18) Creatinine 5.41 MG/DL (0.60-1.30) Random Glucose 159 MG/DL (74-106) Calcium Level 9.9 MG/DL (8.5-10.1) Sodium Level 137 MEQ/L (136-145) Potassium Level 4.7 MEQ/L (3.5-5.1) Chloride Level 96 MEQ/L (98-107) Carbon Dioxide Level 32.1 MEQ/L (21.0-32.0) Anion Gap 9 MEQ/L (5-15) Estimat Glomerular Filtration Rate 11 ML/MIN (>89) Result Diagram: 02/08/17 0420 02/08/17 0420 Imaging: Last 24 hours Impressions Abdomen X-Ray 02/08/17 0000 Signed Impressions: Service Date/Time: Wednesday, February 08, 2017 02:39 - CONCLUSION: Nasogastric tube in place with the tip in the stomach. Rayo Cespedes MD Dilated loops of small and large bowel Cardiovascular: RRR Telemetry: NSR Pulmonary: Decreased BS bilat GI/: distended, mildly tender, no BS Plan: Patient appears to have a significant ileus requiring NG tube. No narcotics Up to chair Dialysis per Nephrology May require heparin or lovenox tomorrow if he cannot tolerate PO meds Critical care to follow as well. Chronic anemia - check labs in AM Katherine Andino MD Feb 08, 2017 09:28
--- NOTE | 2017-02-08 09:35 | EKG ---
Date Performed: 02/07/2017 Time Performed: 06:30:58 PTAGE: 56 years EKG: Sinus tachycardia. Left axis deviation RBBB with left anterior fascicular block Abnormal EC G PREVIOUS TRACING : 10/23/2016 09.50 DOCTOR: Rashel Santana Interpretating Date/Time 02/08/2017 09:33:06
--- NOTE | 2017-02-08 10:37 | EKG ---
Date Performed: 02/08/2017 Time Performed: 04:34:46 PTAGE: 56 years EKG: Sinus tachycardia with borderline 1st degree A-V block, cannot rule out atrial flutter with 2:1 AV conduction Possible left atrial abnormality Left axis deviation RBBB with left anterior fasci cular block Left ventricular hypertrophy Inferior T wave changes are nonspecific Abnormal ECG PREVIOUS TRACING : 02/07/2017 16.44 No significant change from previous tracing noted. DOCTOR: Mickey Castro Interpretating Date/Time 02/08/2017 10:36:18
--- NOTE | 2017-02-08 10:47 | HHI.NPPN ---
Subjective History of Present Illness 56-year-old male with past medical history of hypertension, diabetes mellitus, ischemic heart disease with diastolic dysfunction, history of schizophrenia, chronic anemia, end-stage renal disease on hemodialysis three times per week who was admitted for TAVR for severe symptomatic aortic stenosis. I was called to see the patient for management of dialysis. He has been on hemodialysis Friday, and Friday. Additional Remarks Patient is alert, has been vomiting and now with NGT, no abd. pain, no SOB. Review of Systems General Constitutional: Fatigue Cardiovascular Cardiac: PASTRANA Gastrointestinal Gastrointestinal: Nausea & Vomiting Objective Data Data Vital Signs Date Time Temp Pulse Resp B/P (MAP) Pulse Ox O2 Delivery O2 Flow Rate FiO2 02/08/17 08:00 96 Nasal Cannula 2.00 02/08/17 07:42 95 Nasal Cannula 3.00 02/08/17 07:31 99.8 118 20 97 147/63 (91) 02/08/17 07:30 118 02/08/17 03:17 114 02/08/17 03:11 97.8 116 20 115/57 (76) 97 113/44 (67) 02/07/17 23:10 98.5 117 20 118/67 (84) 99 115/55 (75) 02/07/17 23:00 113 02/07/17 21:23 100/54 (69) 90/38 (55) 02/07/17 19:20 98.3 99 20 96/54 (68) 97 93/39 (57) 02/07/17 19:18 97 Nasal Cannula 2.00 02/07/17 19:00 99 02/07/17 15:22 90 02/07/17 15:00 98.0 93 14 106/52 (70) 97 104/40 (61) 02/07/17 15:00 80 02/07/17 11:00 80 02/07/17 11:00 98.0 80 14 106/54 (71) 95 121/44 (69) 02/07/17 11:00 80 02/07/17 11:00 97.7 -: 02/08/17 0420 02/08/17 0420 Physical Exam General Appearance: No Acute Distress, Comfortable Eyes Eye Exam: Pupils Equal Throat Throat Exam: Oral Mucosa [place] & Moist Neck Neck Exam: Neck Supple Pulmonary Resp Exam: Breath Sounds Equal, No Distress, Rhonchi, Decreased Bases Cardiology CV Exam: Regular, Normal Sinus Rhythm Gastrointestinal/Abdomen GI Exam: Soft, Non-Tender, Bowel Sounds Present Extremeties Extremities Exam: Trace Edema Neurologic Neuro Exam: Alert, Awake, Oriented Psychiatric Psych Exam: Appropriate Responses Assessment/Plan Assessment Summary: Anemia of CKD, Hypertension, End Stage Renal Disease Problem List: (1) S/P TAVR (transcatheter aortic valve replacement) ICD Codes: Z95.2 - Presence of prosthetic heart valve (2) Aortic valve stenosis, critical ICD Codes: I35.0 - Nonrheumatic aortic (valve) stenosis Status: Acute (3) Hyperlipidemia ICD Codes: E78.5 - Hyperlipidemia Status: Acute (4) Schizophrenia ICD Codes: F20.9 - Schizophrenia Status: Chronic (5) DM (diabetes mellitus) ICD Codes: E11.9 - DM (diabetes mellitus) Status: Chronic (6) Hypertension ICD Codes: I10 - Hypertension Status: Acute (7) End stage renal failure on dialysis ICD Codes: N18.6 - End stage renal failure on dialysis; Z99.2 - Dependence on renal dialysis Status: Chronic Plan patient with End stage renal disease, on HD, TTS. Has TAVR done yesterday. Patient has been vomiting and now has NGT inserted. HD will be again today to put him back on TTS schedule. Follow Hgb. On Epogen with HD. Abd. x-ray done, results noted. Homa Mazariegos MD Feb 08, 2017 10:47
[2017-02-08] MEDS ORDERED: ONDANSETRON ODT 4 MG TAB PO PRN (11:00)
[2017-02-08] MEDS ORDERED: DEXAMETHASONE SOD PHOS 4 MG/ML VIAL IV PUSH ONE (11:00)
[2017-02-08] MEDS ORDERED: HALOPERIDOL LACTATE 5 MG/ML AMP IV PUSH PRN (11:00)
--- NOTE | 2017-02-08 11:40 | PD.CARD.PN ---
Subjective Subjective Remarks Hemodynamically stable s/p TAVR breathing is fine + N/V . abd soft. groin c/d/i. Objective Medications Current Medications Medications (Trade) Dose Ordered Sig/Diane Route Start Time Stop Time Status Last Admin Sodium Chloride 1,000 ml @ 125 mls/hr Q8H IV 02/07/17 06:00 Cefazolin Sodium/ Dextrose 50 ml @ 100 mls/hr GUE[employer] SERVICE AIDE PRN IV 02/07/17 06:00 02/10/17 05:59 02/07/17 08:18 (Betadine 5% Antisepsis Kit) 1 applic GUEST SERVICE AIDE PRN EACH NARE 02/07/17 06:00 02/10/17 05:59 02/07/17 07:00 (Bactroban Nasal 2% Oint) 1 applic GUEST SERVICE AIDE PRN EACH NARE 02/07/17 06:00 02/10/17 05:59 (Chlorhexidine 2% Cloth) 3 pack GUEST SERVICE AIDE PRN TOPICAL 02/07/17 06:00 02/10/17 05:59 02/07/17 07:00 (Lopressor) 25 mg GUEST SERVICE AIDE PRN PO 02/07/17 06:15 02/10/17 06:14 (NovoLIN R INJ) See Protocol Table ... GUEST SERVICE AIDE PRN SQ 02/07/17 06:15 02/10/17 06:14 (D50w (Vial) Inj) 25 ml UNSCH PRN IV PUSH 02/07/17 11:00 (NovoLIN R SUPPLEMENTAL SCALE) 1 ACHS AND 3AM SQ 02/07/17 12:15 02/08/17 08:29 (Duoneb Neb) 1 ampule Q6HR NEB INH 02/07/17 16:00 02/07/17 19:18 (Duoneb Neb) 1 ampule Q2HR NEB PRN INH 02/07/17 11:00 (Tums Chew) 500 mg TIDPC PRN PO 02/07/17 11:00 (Vitamin D3) 2,000 units DAILY PO 02/08/17 09:00 (Sensipar) 30 mg DAILY PO 02/08/17 09:00 (Depakote Er) 500 mg BID PO 02/07/17 21:00 02/07/17 20:42 (PROzac) 20 mg HS PO 02/07/17 21:00 02/07/17 20:43 (Atarax) 25 mg Q6HR PO 02/07/17 12:00 02/07/17 15:32 (Ativan) 0.5 mg Q4H PRN PO 02/07/17 11:00 (Remeron) 30 mg HS PO 02/07/17 21:00 02/07/17 20:43 (Protonix) 40 mg Q12HR PO 02/07/17 21:00 02/07/17 20:42 (Miralax) 17 gm DAILY PO 02/08/17 09:00 (Renvela) 800 mg TIDAC PO 02/07/17 12:30 02/07/17 17:18 (Geodon) 80 mg BID PO 02/07/17 21:00 02/07/17 20:42 (Vitamin C) 500 mg BID PO 02/07/17 21:00 02/07/17 20:42 Sodium Chloride 1,000 ml @ 0 mls/hr Q0M PRN OTHER 02/07/17 11:29 (Heparin Inj) 8,000 units UNSCH PRN IV FLUSH 02/07/17 11:30 Sodium Chloride 1,000 ml @ 200 mls/hr Q5H PRN IV 02/07/17 11:29 Sodium Chloride 1,000 ml @ 0 mls/hr Q0M PRN OTHER 02/07/17 11:29 (Mannitol Inj) 12.5 gm UNSCH PRN IV 02/07/17 11:30 Albumin Human 100 ml @ 60 mls/hr UNSCH PRN IV 02/07/17 11:30 (NS Flush) 5 ml UNSCH PRN IV FLUSH 02/07/17 11:30 (Heparin Inj) UNSCH PRN .XX 02/07/17 11:30 (Gentamicin (Dialysis) Inj) 20 mg UNSCH PRN OTHER 02/07/17 11:30 (Zofran Inj) 4 mg UNSCH PRN IV PUSH 02/07/17 11:30 02/08/17 06:13 (Tylenol) 650 mg UNSCH PRN PO 02/07/17 11:30 (Benadryl) 25 mg UNSCH PRN PO 02/07/17 11:30 (Nitrostat Sl) 0.4 mg UNSCH PRN SL 02/07/17 11:30 (Catapres) 0.1 mg UNSCH PRN PO 02/07/17 11:30 (Epogen Inj) 10,000 units UNSCH PRN IV PUSH 02/07/17 11:30 02/07/17 14:11 (Gelfoam 12 Mm/7 Mm Top) 1 foam UNSCH PRN TOP 02/07/17 11:30 02/07/17 14:11 (Aspirin Chew) 81 mg DAILY PO 02/07/17 12:15 02/07/17 15:32 (Plavix) 75 mg DAILY PO 02/08/17 09:00 (Zofran Odt) 4 mg Q6H PRN PO 02/08/17 11:00 UNV (Transderm-Scop 1.5 Mg Patch.72 Hr) 1 patch ONCE ONCE T-DERMAL 02/08/17 11:00 02/08/17 11:01 UNV (Decadron Inj) 4 mg ONCE ONCE IV PUSH 02/08/17 11:00 02/08/17 11:01 UNV (Haldol Inj) 0.5 mg Q4H PRN IV PUSH 02/08/17 11:00 UNV Vital Signs / I&O Vital Signs Date Time Temp Pulse Resp B/P (MAP) Pulse Ox O2 Delivery O2 Flow Rate FiO2 02/08/17 11:17 99.0 106 20 97 95/47 (63) 02/08/17 11:16 106 02/08/17 08:00 96 Nasal Cannula 2.00 02/08/17 07:42 95 Nasal Cannula 3.00 02/08/17 07:31 99.8 118 20 97 147/63 (91) 02/08/17 07:30 118 02/08/17 03:17 114 02/08/17 03:11 97.8 116 20 115/57 (76) 97 113/44 (67) 02/07/17 23:10 98.5 117 20 118/67 (84) 99 115/55 (75) 02/07/17 23:00 113 02/07/17 21:23 100/54 (69) 90/38 (55) 02/07/17 19:20 98.3 99 20 96/54 (68) 97 93/39 (57) 02/07/17 19:18 97 Nasal Cannula 2.00 02/07/17 19:00 99 02/07/17 15:22 90 02/07/17 15:00 98.0 93 14 106/52 (70) 97 104/40 (61) 02/07/17 15:00 80 I/O 02/07/17 02/07/17 02/07/17 02/08/17 02/08/17 02/08/17 07:00 15:00 23:00 07:00 15:00 23:00 Intake Total 1610 ml 965 ml 580 ml Output Total 325 ml 1750 ml 1000 ml Balance 1285 ml -785 ml -420 ml Intake Oral 360 ml 580 ml IV Total 605 ml Packed Cells 410 ml Other 1200 ml Output Urine Total 125 ml 250 ml 150 ml Gastric Drainage Total 450 ml Emesis 400 ml Hemodialysis 1500 ml Estimated Blood Loss 200 ml # Bowel Movements 0 Physical Exam NECK: Supple, trachea midline. No JVD or lymphadenopathy. CARDIOVASCULAR: Regular rate and rhythm without murmurs, gallops, or rubs. RESPIRATORY: Breath sounds equal bilaterally. No accessory muscle use. GASTROINTESTINAL: Abdomen soft, non-tender, nondistended. Laboratory Laboratory Tests Test 02/07/17 16:20 02/07/17 17:14 02/07/17 22:58 02/08/17 04:20 Blood Urea Nitrogen 43 MG/DL 55 MG/DL Creatinine 3.87 MG/DL 5.41 MG/DL Random Glucose 84 MG/DL 159 MG/DL Calcium Level 9.9 MG/DL 9.9 MG/DL Sodium Level 138 MEQ/L 137 MEQ/L Potassium Level 4.0 MEQ/L 4.7 MEQ/L Chloride Level 98 MEQ/L 96 MEQ/L Carbon Dioxide Level 31.6 MEQ/L 32.1 MEQ/L Anion Gap 8 MEQ/L 9 MEQ/L Estimat Glomerular Filtration Rate 16 ML/MIN 11 ML/MIN Hemoglobin 9.2 GM/DL 8.3 GM/DL 8.6 GM/DL Hematocrit 26.8 % 24.7 % 25.3 % White Blood Count 10.5 TH/MM3 Red Blood Count 2.76 MIL/MM3 Mean Corpuscular Volume 91.7 FL Mean Corpuscular Hemoglobin 31.0 PG Mean Corpuscular Hemoglobin Concent 33.8 % Red Cell Distribution Width 15.6 % Platelet Count 167 TH/MM3 Mean Platelet Volume 8.9 FL Imaging Last 24 hours Impressions Abdomen X-Ray 02/08/17 0000 Signed Impressions: Service Date/Time: Wednesday, February 08, 2017 02:39 - CONCLUSION: Nasogastric tube in place with the tip in the stomach. Rayo Cespedes MD Assessment and Plan Assessment and Plan s/p TAVR 2d echo diastolic CHF - breathing stable ESRD - s/p dialysis N/V - + ileus. NGT. plavix load yest. if unable to obtain plavix today, will need to consider Lovenox BID or Integrilin gtt tomorrow Nash Garcia MD Feb 08, 2017 11:40
--- NOTE | 2017-02-08 12:00 | HHI.CCPN ---
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 He was evaluated by 2 cardiac surgeons need to be not a surgical candidate. He underwent elective transcatheter valve replacement today, which was compensated by a moderate amount of bleeding from the right femoral artery at the conclusion of the case. His hemoglobin dropped from a baseline around 8-9 g/dL down to 5.5 g/ dL. He remained hemodynamically stable throughout the procedure. He is being actively transfused 1 unit PRBC on arrival to the CVICU. He rests the CVICU extubated in stable condition. Due to his arousal from anesthesia and his somnolence no additional information is obtainable from the patient. The remainder of the history is obtained from the medical record. ROS is unobtainable subjective: 02/08: significant nausea and vomiting overnight requiring NGT placed to continuous suction. output appears dark/bilious. hgb stable after blood transfusion. groins without hematoma. Doppler's still present. patient endorses mild abdominal pain, but on further investigation, he points to his groins when he complains of abdominal pain. Objective Vital Signs Date Time Temp Pulse Resp B/P (MAP) Pulse Ox O2 Delivery O2 Flow Rate FiO2 02/08/17 11:17 99.0 106 20 97 95/47 (63) 02/08/17 08:00 Nasal Cannula 2.00 Intake and Output 02/08/17 02/08/17 02/09/17 08:00 16:00 00:00 Intake Total 580 ml Output Total 1000 ml Balance -420 ml Result Diagram: 02/08/1741902/08/17419 Objective Remarks GENERAL: Middle-aged male who appears much older than stated age, lying in bed, no acute distress HEENT: Normocephalic. Atraumatic. Pupils equal, round, reactive, conjugate. Mucous membranes are moist NECK: Trachea is midline. There is no JVD. Right IJ introducer sheath with transvenous pacer in place. CHEST: Equal chest rise. NC o2. unlabored. CARDIOVASCULAR: Normal rate, regular rhythm. Sinus by telemetry. Not currently paced. ABDOMEN: Soft, nontender, nondistended. No guarding. 500mL dark bilious emesis in NGT. MUSCULOSKELETAL: Pulses 2+. No peripheral edema. Bilateral groin incisions with small dressings which are clean dry and intact. No evidence of hematoma. Distal pulses are dopplerable. very mild tenderness to palpation over bilateral groin incisions. NEUROLOGICAL: RASS 0. follows commands. no focal deficits. A/P Assessment and Plan Assessment: 56-year-old male with history of schizophrenia, end-stage renal disease on intermittent hemodialysis, and severe symptomatic aortic stenosis now postop day 1 status post transcatheter aortic valve replacement, complicated by moderate amount of intraoperative bleeding with resultant anemia of acute blood loss. Nausea and vomiting appears most likely to be post- operative nausea and vomiting. no concerning features such as abdominal pain out of proportion to exam to suggest mesenteric ischemia. will check venous lactate. will add scop patch, decadron, small dose of iv haldol to help control nausea in addition to zofran. discussed with Dr. Garcia and he is ok with holding plavix for today given severe nausea, but will re-evaluate anticoagulation plan if we are unable to give plavix by tomorrow. s/p TAVR with groin access 02/[address] Monte/Jose. Frequent neurovascular checks Post-operative Nausea/Vomiting- severe unable to take any PO continue NGT to LIWS add scop patch add dexamethasone 4mg iv x 1 add haldol 0.5mg iv q4h prn for breakthrough continue zofran 4mg iv q6h prn would consider sub-hypnotic dose propofol infusion (1-5 mcg/kg/min) as last- resort, particularly if it facilitates his ability to take plavix. f/u venous lactate if still persistently nauseated tomorrow, may require abdominal imaging to rule out ischemic causes. continue mivf: NS @ 50cc/hr given strict NPO. End-stage renal disease on intermittent hemodialysis Friday, , Friday Consult nephrology Dialysis today to get back on T/R/ schedule. Daily BMP for electrolyte monitoring Anemia of acute blood loss superimposed on anemia of chronic disease secondary to end-stage renal disease s/p prbc transfusion 02/07. hgb stable. daily cbc Hypertension restart home antihypertensives Goal systolic blood pressure less than 180 Schizophrenia continue home antipsychotics Patient has a propensity to pick at things. We'll order restraints for safety given he has high risk lines in place Diabetes Sliding scale insulin SCDs Home PPI d/c central line. d/c art line after dialysis. Disposition: remain in ICU. high risk for decompensation or aspiration given significant PONV. Critical care medicine team will continue to follow the patient on a remain in the CVICU. King Merida MD Feb 08, 2017 12:00
[2017-02-08] MEDS: SCOPOLAMINE 1.5 MG PATCH T-DERMAL ONE ×2 (13:46→13:48)
[2017-02-08] MEDS: EPOETIN ALFA 10,000 UNITS/ML VIAL IV PUSH PRN (14:10)
[2017-02-08] MEDS: GELATIN 12 MM/7 MM FOAM TOP PRN (14:11)
[2017-02-08] MEDS: FLUoxetine HCL 20 MG CAP PO SCH (21:00)
[2017-02-08] MEDS: MIRTAZAPINE 15 MG TAB PO SCH (21:00)
[2017-02-09] VITALS (11 sets, daily range): BP systolic 112–130; BP diastolic 54–70; PULSE 98–107; RESP 14–20; TEMP 98.2–99; O2SAT 92–96
[2017-02-09] MEDS: INSULIN NovoLIN REGULAR SUPPLEMENTAL SCALE SQ SCH ×5 (03:00→21:00)
[2017-02-09] MEDS: RESP: ALBUTEROL 2.5 MG/IPRATROPIUM 0.5 MG NEB (SCH) INH ×4 (04:44→22:00)
[2017-02-09] MEDS: hydrOXYzine HCL 25 MG TAB PO SCH ×4 (05:50→17:02)
[2017-02-09 05:55] LABS: HEMATOCRIT 25.9 % (39.0-51.0); MEAN CELL VOLUME 93.2 FL (80.0-100.0); MEAN CORPUSCULAR HEMOGLOBIN 31.7 PG (27.0-34.0); PLATELET COUNT 183 TH/MM3 (150-450); RED BLOOD COUNT 2.77 MIL/MM3 (4.50-5.90); RED CELL DISTRIBUTION WIDTH 15.4 % (11.6-17.2); REVIEW FLAG FINAL; WHITE BLOOD COUNT 10.4 TH/MM3 (4.0-11.0)
[2017-02-09 06:20] LABS: BICARBONATE 31.9 MEQ/L (21.0-32.0); POTASSIUM 4.4 MEQ/L (3.5-5.1)
[2017-02-09] MEDS: SEVELAMER CARBONATE 800 MG TAB PO SCH ×3 (07:55→17:00)
--- NOTE | 2017-02-09 08:16 | HHI.CCPN ---
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 He was evaluated by 2 cardiac surgeons need to be not a surgical candidate. He underwent elective transcatheter valve replacement today, which was compensated by a moderate amount of bleeding from the right femoral artery at the conclusion of the case. His hemoglobin dropped from a baseline around 8-9 g/dL down to 5.5 g/ dL. He remained hemodynamically stable throughout the procedure. He is being actively transfused 1 unit PRBC on arrival to the CVICU. He rests the CVICU extubated in stable condition. Due to his arousal from anesthesia and his somnolence no additional information is obtainable from the patient. The remainder of the history is obtained from the medical record. ROS is unobtainable subjective: 02/08: significant nausea and vomiting overnight requiring NGT placed to continuous suction. output appears dark/bilious. hgb stable after blood transfusion. groins without hematoma. Doppler's still present. patient endorses mild abdominal pain, but on further investigation, he points to his groins when he complains of abdominal pain. 02/09: nausea/vomiting resolved yesterday afternoon. tolerated clear liquids for dinner. NGT still in place and clamped. patient denies any complaints this morning. states he wants to go home. has not tolerated full diet yet. did receive his plavix yesterday around 3pm. Objective Vital Signs Date Time Temp Pulse Resp B/P (MAP) Pulse Ox O2 Delivery O2 Flow Rate FiO2 02/09/17 07:23 95 Nasal Cannula 2.00 02/09/17 07:22 98.3 98 16 120/58 (78) Intake and Output 02/09/17 02/09/17 02/10/17 08:00 16:00 00:00 Intake Total 480 ml Output Total 125 ml Balance 355 ml Result Diagram: 02/09/1741702/09/17417 Objective Remarks GENERAL: Middle-aged male who appears much older than stated age, lying in bed, no acute distress HEENT: Normocephalic. Atraumatic. Pupils equal, round, reactive, conjugate. Mucous membranes are moist NECK: Trachea is midline. There is no JVD. dressing over right anterior neck where sheath was is clean/dry/intact. CHEST: Equal chest rise. room air. unlabored. CARDIOVASCULAR: Normal rate, regular rhythm. Sinus by telemetry. Not currently paced. ABDOMEN: Soft, nontender, nondistended. No guarding. MUSCULOSKELETAL: Pulses 2+. No peripheral edema. Bilateral groin incisions with small dressings which are clean dry and intact. No evidence of hematoma. Distal pulses are dopplerable. NEUROLOGICAL: RASS 0. follows commands. no focal deficits. A/P Assessment and Plan Assessment: 56-year-old male with history of schizophrenia, end-stage renal disease on intermittent hemodialysis, and severe symptomatic aortic stenosis now postop day 2 status post transcatheter aortic valve replacement, complicated by moderate amount of intraoperative bleeding with resultant anemia of acute blood loss. PONV has improved significantly. can keep scop patch x 3 days, but would recommend removing prior to discharge from hospital so it does not get accidentally left on at outside facility. advance diet. stable for transfer to floor. PT/OT and OOB. s/p TAVR with groin access 02/[address] Monte/Jose. Frequent neurovascular checks able to take plavix po. Post-operative Nausea/Vomiting- resolved. d/c NGT advance diet to heart healthy d/c mivf. continue scop patch x 3 days or until hospital discharge. continue haldol 0.5mg iv q4h prn for breakthrough nausea continue zofran 4mg iv q6h prn End-stage renal disease on intermittent hemodialysis Friday, , Friday Consult nephrology Dialysis today to get back on T/R/Sa schedule. Daily BMP for electrolyte monitoring Anemia of acute blood loss superimposed on anemia of chronic disease secondary to end-stage renal disease s/p prbc transfusion 02/07. hgb stable. daily cbc Hypertension home antihypertensives Goal systolic blood pressure less than 180 Schizophrenia continue home antipsychotics Patient has a propensity to pick at things. has not needed restraints. Diabetes Sliding scale insulin SCDs Home PPI d/c ortiz. piv's Disposition: transfer to step-down unit. Critical care medicine will sign-off. King Merida MD Feb 09, 2017 08:16
[2017-02-09] MEDS: POLYETHYLENE GLYCOL 17 GM PKG PO SCH (08:37)
[2017-02-09] MEDS: ZIPRASIDONE HCL 80 MG CAP PO SCH ×2 (08:37→21:00)
[2017-02-09] MEDS: CINACALCET HYDROCHLORIDE 30 MG TAB PO SCH (08:38)
[2017-02-09] MEDS: DIVALPROEX SODIUM E.R. 500 MG TAB PO SCH ×2 (08:38→21:00)
[2017-02-09] MEDS: PANTOPRAZOLE SOD 40 MG DELAYED RELEASE TAB PO SCH ×2 (08:38→21:00)
[2017-02-09] MEDS: CHOLECALCIFEROL (VIT D3) 1000 UNIT TAB PO SCH (08:38)
[2017-02-09] MEDS: CLOPIDOGREL 75 MG TAB PO SCH (08:38)
[2017-02-09] MEDS: ASPIRIN 81 MG CHEW TAB PO SCH (08:41)
[2017-02-09] MEDS: ASCORBIC ACID 500 MG TAB PO SCH ×2 (08:43→21:00)
--- NOTE | 2017-02-09 10:00 | HHI.NPPN ---
Subjective History of Present Illness 56-year-old male with past medical history of hypertension, diabetes mellitus, ischemic heart disease with diastolic dysfunction, history of schizophrenia, chronic anemia, end-stage renal disease on hemodialysis three times per week who was admitted for TAVR for severe symptomatic aortic stenosis. I was called to see the patient for management of dialysis. He has been on hemodialysis Friday, and Friday. Additional Remarks Patient is alert, now sitting on the chair, started liquids, tolerating, no vomiting today. Review of Systems General Constitutional: Fatigue Cardiovascular Cardiac: PASTRANA Gastrointestinal Gastrointestinal: Nausea & Vomiting Objective Data Data Vital Signs Date Time Temp Pulse Resp B/P (MAP) Pulse Ox O2 Delivery O2 Flow Rate FiO2 02/09/17 07:23 95 Nasal Cannula 2.00 02/09/17 07:22 98.3 98 16 120/58 (78) 96 02/09/17 07:21 98 02/09/17 03:36 105 02/09/17 03:30 98.3 102 18 130/70 (90) 96 02/08/17 23:34 102 02/08/17 23:10 102 18 117/60 (79) 96 02/08/17 20:59 97 Nasal Cannula 3.00 02/08/17 19:42 98.5 106 18 127/60 (82) 96 Arterial Line 02/08/17 19:42 96 Nasal Cannula 2.00 02/08/17 19:38 103 02/08/17 15:02 102 02/08/17 15:02 97.9 103 20 97 114/48 (70) 02/08/17 11:17 99.0 106 20 97 95/47 (63) 02/08/17 11:16 106 -: 02/09/17 0418 02/09/17 0418 Physical Exam General Appearance: No Acute Distress, Comfortable Eyes Eye Exam: Pupils Equal Throat Throat Exam: Oral Mucosa [place] & Moist Neck Neck Exam: Neck Supple Pulmonary Resp Exam: Breath Sounds Equal, No Distress, Rhonchi, Decreased Bases Cardiology CV Exam: Regular, Normal Sinus Rhythm Gastrointestinal/Abdomen GI Exam: Soft, Non-Tender, Bowel Sounds Present Extremeties Extremities Exam: Trace Edema Neurologic Neuro Exam: Alert, Awake, Oriented Psychiatric Psych Exam: Appropriate Responses Assessment/Plan Assessment Summary: Anemia of CKD, Hypertension, End Stage Renal Disease Problem List: (1) S/P TAVR (transcatheter aortic valve replacement) ICD Codes: Z95.2 - Presence of prosthetic heart valve (2) Aortic valve stenosis, critical ICD Codes: I35.0 - Nonrheumatic aortic (valve) stenosis Status: Acute (3) Hyperlipidemia ICD Codes: E78.5 - Hyperlipidemia Status: Acute (4) Schizophrenia ICD Codes: F20.9 - Schizophrenia Status: Chronic (5) DM (diabetes mellitus) ICD Codes: E11.9 - DM (diabetes mellitus) Status: Chronic (6) Hypertension ICD Codes: I10 - Hypertension Status: Acute (7) End stage renal failure on dialysis ICD Codes: N18.6 - End stage renal failure on dialysis; Z99.2 - Dependence on renal dialysis Status: Chronic Plan patient with End stage renal disease, on HD, TTS. Has TAVR done on 02/07. Follow Hgb. On Epogen with HD. Started on liquids and tolerating. Dr. Andersen will follow from Homa Warner MD Feb 09, 2017 10:00
--- NOTE | 2017-02-09 11:54 | PD.CARD.PN ---
Subjective Subjective Remarks feeling better. oob and sitting in chair. nausea resolved yesterday. He's been eating full meals without difficulty. no chest pain or sob (Jhoana Cornelius) Objective Medications Current Medications Medications (Trade) Dose Ordered Sig/Diane Route Start Time Stop Time Status Last Admin Cefazolin Sodium/ Dextrose 50 ml @ 100 mls/hr ELECTRIC [employer]OR [employer]TER PRN IV 02/07/17 06:00 02/10/17 05:59 02/07/17 08:18 (Betadine 5% Antisepsis Kit) 1 applic ELECTRIC [employer]OR [employer]TER PRN EACH NARE 02/07/17 06:00 02/10/17 05:59 02/07/17 07:00 (Bactroban Nasal 2% Oint) 1 applic ELECTRIC MOTOR FITTER PRN EACH NARE 02/07/17 06:00 02/10/17 05:59 (Chlorhexidine 2% Cloth) 3 pack ELECT[employer]IC [employer]OR [employer]TER PRN TOPICAL 02/07/17 06:00 02/10/17 05:59 02/07/17 07:00 (Lopressor) 25 mg ELECTRIC [employer]OR [employer]TER PRN PO 02/07/17 06:15 02/10/17 06:14 (NovoLIN R INJ) See Protocol Table ... ELECTRIC MOTOR [employer]TER PRN SQ 02/07/17 06:15 02/10/17 06:14 (D50w (Vial) Inj) 25 ml UNSCH PRN IV PUSH 02/07/17 11:00 (NovoLIN R SUPPLEMENTAL SCALE) 1 ACHS AND 3AM SQ 02/07/17 12:15 02/08/17 12:13 (Duoneb Neb) 1 ampule Q6HR NEB INH 02/07/17 16:00 02/09/17 10:22 (Duoneb Neb) 1 ampule Q2HR NEB PRN INH 02/07/17 11:00 (Tums Chew) 500 mg TIDPC PRN PO 02/07/17 11:00 (Vitamin D3) 2,000 units DAILY PO 02/08/17 09:00 02/09/17 08:38 (Sensipar) 30 mg DAILY PO 02/08/17 09:00 02/09/17 08:38 (Depakote Er) 500 mg BID PO 02/07/17 21:00 02/09/17 08:38 (PROzac) 20 mg HS PO 02/07/17 21:00 02/07/17 20:43 (Atarax) 25 mg Q6HR PO 02/07/17 12:00 02/08/17 17:51 (Ativan) 0.5 mg Q4H PRN PO 02/07/17 11:00 (Remeron) 30 mg HS PO 02/07/17 21:00 02/07/17 20:43 (Protonix) 40 mg Q12HR PO 02/07/17 21:00 02/09/17 08:38 (Miralax) 17 gm DAILY PO 02/08/17 09:00 02/09/17 08:37 (Renvela) 800 mg TIDAC PO 02/07/17 12:30 02/09/17 07:55 (Geodon) 80 mg BID PO 02/07/17 21:00 02/09/17 08:37 (Vitamin C) 500 mg BID PO 02/07/17 21:00 02/09/17 08:43 Sodium Chloride 1,000 ml @ 0 mls/hr Q0M PRN OTHER 02/07/17 11:29 (Heparin Inj) 8,000 units UNSCH PRN IV FLUSH 02/07/17 11:30 Sodium Chloride 1,000 ml @ 200 mls/hr Q5H PRN IV 02/07/17 11:29 Sodium Chloride 1,000 ml @ 0 mls/hr Q0M PRN OTHER 02/07/17 11:29 (Mannitol Inj) 12.5 gm UNSCH PRN IV 02/07/17 11:30 Albumin Human 100 ml @ 60 mls/hr UNSCH PRN IV 02/07/17 11:30 (NS Flush) 5 ml UNSCH PRN IV FLUSH 02/07/17 11:30 (Heparin Inj) UNSCH PRN .XX 02/07/17 11:30 (Gentamicin (Dialysis) Inj) 20 mg UNSCH PRN OTHER 02/07/17 11:30 (Zofran Inj) 4 mg UNSCH PRN IV PUSH 02/07/17 11:30 02/08/17 06:13 (Tylenol) 650 mg UNSCH PRN PO 02/07/17 11:30 (Benadryl) 25 mg UNSCH PRN PO 02/07/17 11:30 (Nitrostat Sl) 0.4 mg UNSCH PRN SL 02/07/17 11:30 (Catapres) 0.1 mg UNSCH PRN PO 02/07/17 11:30 (Epogen Inj) 10,000 units UNSCH PRN IV PUSH 02/07/17 11:30 02/08/17 14:10 (Gelfoam 12 Mm/7 Mm Top) 1 foam UNSCH PRN TOP 02/07/17 11:30 02/08/17 14:11 (Aspirin Chew) 81 mg DAILY PO 02/07/17 12:15 02/09/17 08:41 (Plavix) 75 mg DAILY PO 02/08/17 09:00 02/09/17 08:38 (Zofran Odt) 4 mg Q6H PRN PO 02/08/17 11:00 (Haldol Inj) 0.5 mg Q4H PRN IV PUSH 02/08/17 11:00 02/08/17 11:51 Vital Signs / I&O Vital Signs Date Time Temp Pulse Resp B/P (MAP) Pulse Ox O2 Delivery O2 Flow Rate FiO2 02/09/17 11:04 104 02/09/17 11:03 98.2 104 20 112/60 (77) 96 02/09/17 10:23 95 21 02/09/17 07:23 95 Nasal Cannula 2.00 02/09/17 07:22 98.3 98 16 120/58 (78) 96 02/09/17 07:21 98 02/09/17 03:36 105 02/09/17 03:30 98.3 102 18 130/70 (90) 96 02/08/17 23:34 102 02/08/17 23:10 102 18 117/60 (79) 96 02/08/17 20:59 97 Nasal Cannula 3.00 02/08/17 19:42 98.5 106 18 127/60 (82) 96 Arterial Line 02/08/17 19:42 96 Nasal Cannula 2.00 02/08/17 19:38 103 02/08/17 15:02 102 02/08/17 15:02 97.9 103 20 97 114/48 (70) I/O 02/08/17 02/08/17 02/08/17 02/09/17 02/09/17 02/09/17 07:00 15:00 23:00 07:00 15:00 23:00 Intake Total 580 ml 1050 ml 480 ml Output Total 1000 ml 1000 ml 750 ml 125 ml Balance -420 ml -1000 ml 300 ml 355 ml Intake Oral 580 ml 50 ml 480 ml IV Total 1000 ml Output Urine Total 150 ml 150 ml 125 ml Gastric Drainage Total 450 ml 600 ml 0 ml Emesis 400 ml 0 ml Hemodialysis 1000 ml # Bowel Movements 0 0 Physical Exam GENERAL: SKIN: Warm and dry. HEAD: Atraumatic. Normocephalic. EYES: Pupils equal and round. ENT: No nasal bleeding or discharge. NECK: Trachea midline. No JVD. CARDIOVASCULAR: Regular rate and rhythm. systolic murmur RESPIRATORY: No accessory muscle use. Clear to auscultation. Breath sounds equal bilaterally. GASTROINTESTINAL: Abdomen soft, non-tender, nondistended. MUSCULOSKELETAL: Extremities without clubbing, cyanosis, or edema. No obvious deformities. NEUROLOGICAL: Awake and alert. No obvious cranial nerve deficits. Normal speech. PSYCHIATRIC: Appropriate mood and affect; insight and judgment normal. Laboratory Laboratory Tests Test 02/08/17 12:09 02/09/17 04:18 Lactic Acid Level 0.9 mmol/L White Blood Count 10.4 TH/MM3 Red Blood Count 2.77 MIL/MM3 Hemoglobin 8.8 GM/DL Hematocrit 25.9 % Mean Corpuscular Volume 93.2 FL Mean Corpuscular Hemoglobin 31.7 PG Mean Corpuscular Hemoglobin Concent 34.0 % Red Cell Distribution Width 15.4 % Platelet Count 183 TH/MM3 Mean Platelet Volume 9.3 FL Blood Urea Nitrogen 43 MG/DL Creatinine 5.01 MG/DL Random Glucose 135 MG/DL Calcium Level 10.3 MG/DL Sodium Level 136 MEQ/L Potassium Level 4.4 MEQ/L Chloride Level 96 MEQ/L Carbon Dioxide Level 31.9 MEQ/L Anion Gap 8 MEQ/L Estimat Glomerular Filtration Rate 12 ML/MIN (Jhoana Cornelius) Assessment and Plan Problem List: (1) ESRD (end stage renal disease) ICD Codes: N18.6 - ESRD (end stage renal disease) Status: Acute (2) Diastolic CHF due to valvular disease ICD Codes: I38 - Endocarditis, valve unspecified; I50.30 - Unspecified diastolic (congestive) heart failure (3) Aortic valve stenosis, critical ICD Codes: I35.0 - Nonrheumatic aortic (valve) stenosis Status: Acute Assessment and Plan 56 yo WM with aortic stenosis, ESRD, diastolic CHF, diabetes, anemia and schizophrenia aortic stenosis- s/p TAVR on 02/07/17, feeling well, no chest pain. cont Plavix n/v has resolved, tolerating food well. anemia improving. CHF- diastolic. breathing well. patient anxious to be discharged. (Jhoana Cornelius) Assessment and Plan good recovery groins c/d/i transfer to [facility] no transport available today CM to coordinate transport to [facility] tomorrow. start low dose BB (Nash Garcia MD) Jhoana Cornelius Feb 09, 2017 11:54 Nash Garcia MD Feb 09, 2017 15:55
[2017-02-09] MEDS: FLUoxetine HCL 20 MG CAP PO SCH (21:00)
[2017-02-09] MEDS: MIRTAZAPINE 15 MG TAB PO SCH (21:00)
[2017-02-09] MEDS: METOPROLOL TARTRATE 25 MG TAB PO SCH (21:00)
[2017-02-10 03:00] VITALS: BP 117/60; PULSE 94; PULSE 98; RESP 16; TEMP 98.4; O2SAT 93
[2017-02-10] MEDS: INSULIN NovoLIN REGULAR SUPPLEMENTAL SCALE SQ SCH ×3 (03:00→12:00)
[2017-02-10] MEDS: RESP: ALBUTEROL 2.5 MG/IPRATROPIUM 0.5 MG NEB (SCH) INH ×3 (03:21→16:30)
[2017-02-10 03:54] LABS: HEMATOCRIT 26.9 % (39.0-51.0); MEAN CELL VOLUME 92.1 FL (80.0-100.0); MEAN CORPUSCULAR HEMOGLOBIN 30.6 PG (27.0-34.0); MEAN CORPUSCULAR HGB CONC 33.3 % (32.0-36.0); PLATELET COUNT 220 TH/MM3 (150-450); RED BLOOD COUNT 2.92 MIL/MM3 (4.50-5.90); RED CELL DISTRIBUTION WIDTH 15.5 % (11.6-17.2); REVIEW FLAG FINAL; WHITE BLOOD COUNT 10.8 TH/MM3 (4.0-11.0)
[2017-02-10 04:16] LABS: BICARBONATE 30.3 MEQ/L (21.0-32.0); POTASSIUM 4.6 MEQ/L (3.5-5.1)
[2017-02-10] MEDS: hydrOXYzine HCL 25 MG TAB PO SCH ×3 (06:00→12:26)
[2017-02-10 07:00] VITALS: PULSE 98
[2017-02-10 08:00] VITALS: BP 124/62; PULSE 96; RESP 18; TEMP 98.2; O2SAT 93
--- NOTE | 2017-02-10 08:17 | PD.CARD.PN ---
Subjective Subjective Remarks Doing well. No chest pain, shortness breath, palpitations. Hoping to go to long-term today. Objective Medications Current Medications Medications (Trade) Dose Ordered Sig/Diane Route Start Time Stop Time Status Last Admin (D50w (Vial) Inj) 25 ml UNSCH PRN IV PUSH 02/07/17 11:00 (NovoLIN R SUPPLEMENTAL SCALE) 1 ACHS AND 3AM SQ 02/07/17 12:15 02/09/17 21:00 (Duoneb Neb) 1 ampule Q6HR NEB INH 02/07/17 16:00 02/10/17 03:21 (Duoneb Neb) 1 ampule Q2HR NEB PRN INH 02/07/17 11:00 (Tums Chew) 500 mg TIDPC PRN PO 02/07/17 11:00 (Vitamin D3) 2,000 units DAILY PO 02/08/17 09:00 02/09/17 08:38 (Sensipar) 30 mg DAILY PO 02/08/17 09:00 02/09/17 08:38 (Depakote Er) 500 mg BID PO 02/07/17 21:00 02/09/17 21:00 (PROzac) 20 mg HS PO 02/07/17 21:00 02/09/17 21:00 (Atarax) 25 mg Q6HR PO 02/07/17 12:00 02/09/17 17:02 (Ativan) 0.5 mg Q4H PRN PO 02/07/17 11:00 (Remeron) 30 mg HS PO 02/07/17 21:00 02/09/17 21:00 (Protonix) 40 mg Q12HR PO 02/07/17 21:00 02/09/17 21:00 (Miralax) 17 gm DAILY PO 02/08/17 09:00 02/09/17 08:37 (Renvela) 800 mg TIDAC PO 02/07/17 12:30 02/09/17 17:00 (Geodon) 80 mg BID PO 02/07/17 21:00 02/09/17 21:00 (Vitamin C) 500 mg BID PO 02/07/17 21:00 02/09/17 21:00 Sodium Chloride 1,000 ml @ 0 mls/hr Q0M PRN OTHER 02/07/17 11:29 (Heparin Inj) 8,000 units UNSCH PRN IV FLUSH 02/07/17 11:30 Sodium Chloride 1,000 ml @ 200 mls/hr Q5H PRN IV 02/07/17 11:29 Sodium Chloride 1,000 ml @ 0 mls/hr Q0M PRN OTHER 02/07/17 11:29 (Mannitol Inj) 12.5 gm UNSCH PRN IV 02/07/17 11:30 Albumin Human 100 ml @ 60 mls/hr UNSCH PRN IV 02/07/17 11:30 (NS Flush) 5 ml UNSCH PRN IV FLUSH 02/07/17 11:30 (Heparin Inj) UNSCH PRN .XX 02/07/17 11:30 (Gentamicin (Dialysis) Inj) 20 mg UNSCH PRN OTHER 02/07/17 11:30 (Zofran Inj) 4 mg UNSCH PRN IV PUSH 02/07/17 11:30 02/08/17 06:13 (Tylenol) 650 mg UNSCH PRN PO 02/07/17 11:30 (Benadryl) 25 mg UNSCH PRN PO 02/07/17 11:30 (Nitrostat Sl) 0.4 mg UNSCH PRN SL 02/07/17 11:30 (Catapres) 0.1 mg UNSCH PRN PO 02/07/17 11:30 (Epogen Inj) 10,000 units UNSCH PRN IV PUSH 02/07/17 11:30 02/08/17 14:10 (Gelfoam 12 Mm/7 Mm Top) 1 foam UNSCH PRN TOP 02/07/17 11:30 02/08/17 14:11 (Aspirin Chew) 81 mg DAILY PO 02/07/17 12:15 02/09/17 08:41 (Plavix) 75 mg DAILY PO 02/08/17 09:00 02/09/17 08:38 (Zofran Odt) 4 mg Q6H PRN PO 02/08/17 11:00 (Haldol Inj) 0.5 mg Q4H PRN IV PUSH 02/08/17 11:00 02/08/17 11:51 (Lopressor) 12.5 mg Q12HR PO 02/09/17 21:00 02/09/17 21:00 Vital Signs / I&O Vital Signs Date Time Temp Pulse Resp B/P (MAP) Pulse Ox O2 Delivery O2 Flow Rate FiO2 02/10/17 07:00 98 02/10/17 03:00 98.4 94 16 117/60 (79) 93 02/10/17 03:00 98 02/09/17 23:00 102 02/09/17 23:00 98.4 107 14 117/64 (81) 92 02/09/17 19:00 92 Room Air 02/09/17 19:00 99.0 107 16 128/54 (78) 93 02/09/17 19:00 105 02/09/17 15:04 102 02/09/17 15:03 99.0 102 16 123/62 (82) 94 02/09/17 11:04 104 02/09/17 11:03 98.2 104 20 112/60 (77) 96 02/09/17 10:23 95 21 I/O 02/09/17 02/09/17 02/09/17 02/10/17 02/10/17 02/10/17 07:00 15:00 23:00 07:00 15:00 23:00 Intake Total 480 ml 1000 ml 1000 ml Output Total 125 ml 30 ml 150 ml Balance 355 ml 970 ml 850 ml Intake Oral 480 ml 1000 ml 1000 ml IV Total 0 ml Output Urine Total 125 ml 30 ml 150 ml Gastric Drainage Total 0 ml Emesis 0 ml # Bowel Movements 0 0 Physical Exam GENERAL: Well-developed well-nourished. In no acute distress. NECK: No carotid bruits. No JVD. CARDIOVASCULAR: Regular rate and rhythm. 2/6 systolic murmur appreciated. RESPIRATORY: No accessory muscle use. Clear to auscultation. Breath sounds equal bilaterally. MUSCULOSKELETAL: No clubbing or cyanosis. No edema. NEUROLOGICAL: Awake and alert. Normal speech. Laboratory Laboratory Tests Test 02/10/17 03:38 White Blood Count 10.8 TH/MM3 Red Blood Count 2.92 MIL/MM3 Hemoglobin 8.9 GM/DL Hematocrit 26.9 % Mean Corpuscular Volume 92.1 FL Mean Corpuscular Hemoglobin 30.6 PG Mean Corpuscular Hemoglobin Concent 33.3 % Red Cell Distribution Width 15.5 % Platelet Count 220 TH/MM3 Mean Platelet Volume 8.4 FL Blood Urea Nitrogen 68 MG/DL Creatinine 7.06 MG/DL Random Glucose 123 MG/DL Calcium Level 9.5 MG/DL Sodium Level 135 MEQ/L Potassium Level 4.6 MEQ/L Chloride Level 93 MEQ/L Carbon Dioxide Level 30.3 MEQ/L Anion Gap 12 MEQ/L Estimat Glomerular Filtration Rate 8 ML/MIN Imaging Last Impressions Abdomen X-Ray 02/08/17 0000 Signed Impressions: Service Date/Time: Wednesday, February 08, 2017 02:39 - CONCLUSION: Nasogastric tube in place with the tip in the stomach. Rayo Cespedes MD Assessment and Plan Problem List: (1) ESRD (end stage renal disease) ICD Codes: N18.6 - ESRD (end stage renal disease) Status: Acute (2) Diastolic CHF due to valvular disease ICD Codes: I38 - Endocarditis, valve unspecified; I50.30 - Unspecified diastolic (congestive) heart failure (3) Aortic valve stenosis, critical ICD Codes: I35.0 - Nonrheumatic aortic (valve) stenosis Status: Acute Assessment and Plan 56 yo WM with aortic stenosis, ESRD, diastolic CHF, diabetes, anemia and schizophrenia aortic stenosis- s/p TAVR on 02/07/17, feeling well, good recovery. cont Plavix anemia: Hemoglobin stable CHF- diastolic. breathing well. Tolerating low-dose beta sal. Likely discharge today. Dwight Hairston Feb 10, 2017 08:17
[2017-02-10] MEDS: DIVALPROEX SODIUM E.R. 500 MG TAB PO SCH (08:26)
[2017-02-10] MEDS: CINACALCET HYDROCHLORIDE 30 MG TAB PO SCH (08:26)
[2017-02-10] MEDS: ZIPRASIDONE HCL 80 MG CAP PO SCH (08:27)
[2017-02-10] MEDS: PANTOPRAZOLE SOD 40 MG DELAYED RELEASE TAB PO SCH (08:27)
[2017-02-10] MEDS: CLOPIDOGREL 75 MG TAB PO SCH (08:27)
[2017-02-10] MEDS: ASPIRIN 81 MG CHEW TAB PO SCH (08:27)
[2017-02-10] MEDS: CHOLECALCIFEROL (VIT D3) 1000 UNIT TAB PO SCH (08:27)
[2017-02-10] MEDS: ASCORBIC ACID 500 MG TAB PO SCH (08:27)
[2017-02-10] MEDS: SEVELAMER CARBONATE 800 MG TAB PO SCH ×2 (08:27→12:26)
[2017-02-10] MEDS: POLYETHYLENE GLYCOL 17 GM PKG PO SCH ×2 (08:28→09:00)
[2017-02-10] MEDS: METOPROLOL TARTRATE 25 MG TAB PO SCH (08:28)
[2017-02-10 09:43] VITALS: O2SAT 94
--- NOTE | 2017-02-10 10:32 | HHI.NPPN ---
Subjective General Problems: Anemia Renal Failure: Chronic, End Stage Renal Disease Additional Remarks He looks well. States he may be discharged today. (Zahra Aguilar) Review of Systems General Constitutional: Fatigue (Zahra Aguilar) Cardiovascular Cardiac: PASTRANA (Zahra Aguilar) Objective Data Data Vital Signs Date Time Temp Pulse Resp B/P (MAP) Pulse Ox O2 Delivery O2 Flow Rate FiO2 02/10/17 09:43 94 21 02/10/17 08:00 98.2 96 18 124/62 (82) 93 02/10/17 08:00 92 Room Air 02/10/17 07:00 98 02/10/17 03:00 98.4 94 16 117/60 (79) 93 02/10/17 03:00 98 02/09/17 23:00 102 02/09/17 23:00 98.4 107 14 117/64 (81) 92 02/09/17 19:00 92 Room Air 02/09/17 19:00 99.0 107 16 128/54 (78) 93 02/09/17 19:00 105 02/09/17 15:04 102 02/09/17 15:03 99.0 102 16 123/62 (82) 94 02/09/17 11:04 104 02/09/17 11:03 98.2 104 20 112/60 (77) 96 (Zahra Aguilar) -: 02/10/17 0338 02/10/17 0338 Imaging Last 72 hours Impressions Abdomen X-Ray 02/08/17 0000 Signed Impressions: Service Date/Time: Wednesday, February 08, 2017 02:39 - CONCLUSION: Nasogastric tube in place with the tip in the stomach. Rayo Cespedes MD (Zahra Aguilar) Physical Exam General Appearance: Well Developed, No Acute Distress, Comfortable (Zahra Aguilar) Eyes Eye Exam: Pupils Equal (Zahra Aguilar) Throat Throat Exam: Oral Mucosa [place] & Moist (Zahra Aguilar) Neck Neck Exam: Neck Supple (Zahra Aguilar) Pulmonary Resp Exam: Clear Bilaterally, Breath Sounds Equal, No Distress, Decreased Bases (Zahra Aguilar) Cardiology CV Exam: Regular, Normal Sinus Rhythm (Zahra Aguilar) Gastrointestinal/Abdomen GI Exam: Soft, Non-Tender, Bowel Sounds Present (Zahra Aguilar) Musculoskeletal MS Exam: Normal Tone, Good Strength (Zahra Aguilar) Integumentary Skin Exam: Clear, Warm, Dry, Intact (Zahra Aguilar) Extremeties Extremities Exam: Pedal Pulses Palpable, Trace Edema (Zahra Aguilar) Neurologic Neuro Exam: Alert, Awake, Oriented, Speech Clear, Moving All Extremities (Zahra Aguilar) Psychiatric Psych Exam: Appropriate Responses (Zahra Aguilar) Assessment/Plan Discussed Condition With: Patient Assessment Summary: Anemia of CKD, Hypertension, End Stage Renal Disease Problem List: (1) End stage renal failure on dialysis ICD Codes: N18.6 - End stage renal failure on dialysis; Z99.2 - Dependence on renal dialysis Status: Chronic Plan: He is on TTS HD, due tomorrow The patient can resume outpatient HD arrangements if discharged Stable from renal perspective Avoid IVF He is tolerating oral fluids. (2) S/P TAVR (transcatheter aortic valve replacement) ICD Codes: Z95.2 - Presence of prosthetic heart valve Plan: Hx of critical , TAVR on 02/07 Cardiology following, appreciate recommendations On Plavix (3) DM (diabetes mellitus) ICD Codes: E11.9 - DM (diabetes mellitus) Status: Chronic Plan: Insulin as needed, monitor glucose Maintain 140-180 mg/dL. (4) Hypertension ICD Codes: I10 - Hypertension Status: Acute Plan: Continue medications as ordered (5) Schizophrenia ICD Codes: F20.9 - Schizophrenia Status: Chronic Plan: Continue antipsychotics as ordered per home medication list (6) Anemia ICD Codes: D64.9 - Anemia Status: Chronic Plan: Epogen with HD (7) Metabolic bone disease ICD Codes: E88.9 - Metabolic disorder, unspecified; M90.80 - Osteopathy in diseases classified elsewhere, unspecified site Status: Acute Plan: On Renvela, check phosphorus level in AM if still admitted (8) Hyperlipidemia ICD Codes: E78.5 - Hyperlipidemia Status: Acute Plan: On statin (Zahra Aguilar) Plan patient was seen and examined. Agree with above assessment and plan. (Felix Andersen MD) Zahra Aguilar Feb 10, 2017 10:32 Felix Andersen MD Feb 10, 2017 20:27
[2017-02-10 12:00] VITALS: BP 126/64; PULSE 90; PULSE 95; RESP 18; TEMP 98.6; O2SAT 93
[2017-02-10] MEDS ORDERED: PLAV75TA29 PO (13:45)
--- NOTE | 2017-02-10 13:49 | HHI.DS ---
Discharge Summary Admission Date Feb 07, 2017 at 05:29 Discharge Date: Feb 10, 2017 Admitting Diagnosis Aortic stenosis Procedures transcatheter aortic valve replacement CBC/BMP: 02/10/17 0338 02/10/17 0338 Significant Findings Laboratory Tests Test 02/07/17 16:20 02/07/17 17:14 02/07/17 22:58 02/08/17 04:20 Blood Urea Nitrogen 43 MG/DL (7-18) 55 MG/DL (7-18) Creatinine 3.87 MG/DL (0.60-1.30) 5.41 MG/DL (0.60-1.30) Estimat Glomerular Filtration Rate 16 ML/MIN (>89) 11 ML/MIN (>89) Hemoglobin 9.2 GM/DL (13.0-17.0) 8.3 GM/DL (13.0-17.0) 8.6 GM/DL (13.0-17.0) Hematocrit 26.8 % (39.0-51.0) 24.7 % (39.0-51.0) 25.3 % (39.0-51.0) Red Blood Count 2.76 MIL/MM3 (4.50-5.90) Random Glucose 159 MG/DL (74-106) Chloride Level 96 MEQ/L (98-107) Carbon Dioxide Level 32.1 MEQ/L (21.0-32.0) Test 02/08/17 12:09 02/09/17 04:18 02/10/17 03:38 Red Blood Count 2.77 MIL/MM3 (4.50-5.90) 2.92 MIL/MM3 (4.50-5.90) Hemoglobin 8.8 GM/DL (13.0-17.0) 8.9 GM/DL (13.0-17.0) Hematocrit 25.9 % (39.0-51.0) 26.9 % (39.0-51.0) Blood Urea Nitrogen 43 MG/DL (7-18) 68 MG/DL (7-18) Creatinine 5.01 MG/DL (0.60-1.30) 7.06 MG/DL (0.60-1.30) Random Glucose 135 MG/DL (74-106) 123 MG/DL (74-106) Calcium Level 10.3 MG/DL (8.5-10.1) Chloride Level 96 MEQ/L (98-107) 93 MEQ/L (98-107) Estimat Glomerular Filtration Rate 12 ML/MIN (>89) 8 ML/MIN (>89) Sodium Level 135 MEQ/L (136-145) Imaging Last Impressions Abdomen X-Ray 02/08/17 0000 Signed Impressions: Service Date/Time: Wednesday, February 08, 2017 02:39 - CONCLUSION: Nasogastric tube in place with the tip in the stomach. Rayo Cespedes MD PE at Discharge SKIN: Warm and dry. HEAD: Normocephalic. EYES: No scleral icterus. No injection or drainage. NECK: Supple, trachea midline. No JVD or lymphadenopathy. CARDIOVASCULAR: Regular rate and rhythm without murmurs, gallops, or rubs. RESPIRATORY: Breath sounds equal bilaterally. No accessory muscle use. GASTROINTESTINAL: Abdomen soft, non-tender, nondistended. MUSCULOSKELETAL: No cyanosis, or edema. BACK: Nontender without obvious deformity. No CVA tenderness. Hospital Course TAVR performed without complication and patient extubated immediately post procedure. Day 1 post op patient developed nausea with ileus secondary to anesthesia Day 2 post op he fully recovered with good oral intake. He lives in a [facility] and had no transportation yesterday today patient is doing well and eager for discharge Pt Condition on Discharge: Good Discharge Disposition: Discharge Home Discharge Instructions DIET: Follow Instructions for: Heart Healthy Diet Activities you can perform: Weight Bearing as Rika Follow up Referrals: Cardiology Additional Information FU with Dr. Garcia cardiology in 2 weeks. Nash Garcia MD Feb 10, 2017 13:49
== END 2017-02-10 16:45 | DRG 266 ==
LOC: HSDI 05:28 → UNDOADMIN 05:28 → HDIC 05:29 → HCVI 11:19
PROVIDERS: ADMIT Radiology Vascular & Interventional Radiology; ATTEND Radiology Vascular & Interventional Radiology
PROC: 30233N1 Transfusion of Nonautologous Red Blood Cells into Peripheral Vein, Percutaneous Approach (ICD-10-PCS; 2017-02-07)
PROC: 02RF38Z Replacement of Aortic Valve with Zooplastic Tissue, Percutaneous Approach (ICD-10-PCS; principal; 2017-02-07 08:00)
PROC: B246ZZ4 Ultrasonography of Right and Left Heart, Transesophageal (ICD-10-PCS; 2017-02-07 08:00)
PROC: 5A1D70Z Performance of Urinary Filtration, Intermittent, Less than 6 Hours Per Day (ICD-10-PCS; 2017-02-07 08:00)
DX: I35.0 Nonrheumatic aortic (valve) stenosis (principal); N18.6 End stage renal disease; I13.2 Hypertensive heart and chronic kidney disease with heart failure and with stage 5 chronic kidney disease, or end stage renal disease; E88.89 Other specified metabolic disorders; D62 Acute posthemorrhagic anemia; I50.32 Chronic diastolic (congestive) heart failure; K56.7 Ileus, unspecified; E11.22 Type 2 diabetes mellitus with diabetic chronic kidney disease; F20.9 Schizophrenia, unspecified; I45.10 Unspecified right bundle-branch block; F41.9 Anxiety disorder, unspecified; D63.1 Anemia in chronic kidney disease; I25.9 Chronic ischemic heart disease, unspecified; J44.9 Chronic obstructive pulmonary disease, unspecified; I34.0 Nonrheumatic mitral (valve) insufficiency; E78.5 Hyperlipidemia, unspecified; Z99.2 Dependence on renal dialysis; Z96.642 Presence of left artificial hip joint; Z85.828 Personal history of other malignant neoplasm of skin; Z00.6 Encounter for examination for normal comparison and control in clinical research program
CPT/HCPCS: 33210; 33361; 36430; 74000; 75625; 80048; 82948; 83605; 85002; 85014; 85018; 85025; 85027; 85610; 85730; 86850; 86900; 86901; 86902; 86920; 86922; 90935; 92986; 93005; 94150; 94640; 94664; 94667; 94668; 96374; C1760; C1769; C1893; G0269; J0610; J0690; J1100; J1630; J1644; J2405; J2720; J7030; J7040; P9016; P9047; Q4081

== ENCOUNTER 2017-07-01 03:54 | Inpatient (IN) | payer MEDICARE, OTHER ==
[~2017-07-01] VITALS: Ht 190.5 cm; Wt 92.0 kg
[2017-07-01] VITALS (14 sets, daily range): BP systolic 96–138; BP diastolic 50–64; PULSE 89–124; RESP 19–36; TEMP 96.9–98.9; O2SAT 100
[~2017-07-01 03:54] MED LIST changes: -PERC5TAB12 PO; +PLAV75TA29 PO
[2017-07-01] MEDS ORDERED: PANTOPRAZOLE INJ 80 MG in SODIUM CHLORIDE 0.9% INJ 35 ML IV ONE (04:10)
--- NOTE | 2017-07-01 04:14 | PD ---
HPI Chief Complaint: GI bleeding, hematemesis Time Seen by Provider: 04:10 Travel History International Travel<30 days: No Contact w/Intl Traveler<30days: No History of Present Illness HPI Patient is a 31-year-old male presents emergency department for evaluation of hematemesis for the past few hours. Patient states is never happened to him before, denies a history of esophageal varices anticoagulant use. He states he had an endoscopy some years ago, he is also had to have blood transfusions after a colonoscopy. Is currently residing in a rehabilitation facility after admission to the hospital with multiple "metabolic abnormalities" per patient. According to documentation he was here in January for a TAVR but there is no evidence for anticoagulation on his detention papers. Patient initially complained of some epigastric discomfort according to EMS, he denies any pain to me. The patient is mildly confused but is able to provide most of his history. 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 DIALYSIS 3X'S WEEKLY) Headaches: No Hepatitis: Yes (HEP C) Hiatal Hernia: No Heparin Induced Thrombocytopen: No Hypertension: Yes Immune Disorder: No Implanted Vascular Access Dvce: Yes Kidney Stones: No Musculoskeletal: No Neurologic: No Psychiatric: Yes (SCHIZOPHRENIA) Reproductive: No Respiratory: Yes (SOB) Integumentary: No Immunizations Current: Yes Migraines: No Myocardial Infarction: No Radiation Therapy: No Renal Failure: Yes (ON HEMODIALYSIS) Schizophrenia: Yes Seizures: No Sickle Cell Disease: No Sleep Apnea: No Thyroid Disease: No Ulcer: No Past Surgical History Abdominal Surgery: No AICD: No Appendectomy: No Arteriovenous Shunt: Yes (left upper arm) Cardiac Surgery: No Cholecystectomy: No Ear Surgery: No Endocrine Surgery: No Eye Surgery: No Genitourinary Surgery: No Gynecologic Surgery: No Insulin Pump: No Joint Replacement: No Neurologic Surgery: No Oral Surgery: Yes (T & A) Pacemaker: No Thoracic Surgery: No Tonsillectomy: Yes Other Surgery: Yes (shunt to left arm / SKIN SURGERY TO FOREHEAD) Social History Alcohol Use: No Tobacco Use: No Substance Use: No Allergies-Medications (Allergen,Severity, Reaction): Coded Allergies: fexofenadine (Unverified Adverse Reaction, Unknown, PT DENIES ALLERGY, ) Pt denies allergy Reported Meds & Prescriptions Reported Meds & Active Scripts Active Plavix (Clopidogrel Bisulfate) 75 Mg Tab 75 Mg PO DAILY 30 Days Levemir Inj (Insulin Detemir) 1,000 unit/ 10 ML Vial 5 Units SQ HS Do not mix with any other Insulin. Renvela (Sevelamer Carbonate) 800 Mg Tab 800 Mg PO TIDAC 30 Days Reported Ferrous Sulfate 325 Mg (65 Mg Iron) Tablet 325 Mg PO BIDPC Vistaril (Hydroxyzine Pamoate) 25 Mg Cap 25 Mg PO QID Omeprazole 20 Mg Tab 20 Mg PO DAILY Mirtazapine 30 Mg Tab 30 Mg PO HS Miralax Powder (Polyethylene Glycol 3350 Powder) 17 Gm Powd 17 Gm PO DAILY Mix and dissolve one measuring cap-ful (17 grams) in water or juice. Metoprolol Tartrate 25 Mg Tab 12.5 Mg PO BID Lorazepam 0.5 Mg Tab 0.5 Mg PO Q4H PRN Vitamin D-1000 (Cholecalciferol) 1,000 Unit Tab 2,000 Units PO DAILY Vitamin C (Ascorbic Acid) 250 Mg Chew 500 Mg CHEW BID Aspirin 81 Mg Chew 81 Mg CHEW DAILY Prozac (Fluoxetine HCl) 20 Mg Cap 20 Mg PO HS Geodon (Ziprasidone) 80 Mg Cap 80 Mg PO BID Take 1 capsule (80mg) with 20mg capsule for a total dose of 100mg Aracely-Annelise (B-Complex W/ C & Folic Acid) 1 Tab 1 Tab PO DAILY Depakote ER (Divalproex Sodium) 500 Mg Prema 500 Mg PO BID Tums (Calcium Carbonate (Antacid)) 500 Mg Chew 500 Mg PO TIDPC PRN Tylenol (Acetaminophen) 325 Mg Tab 650 Mg PO Q6H PRN Review of Systems Except as stated in HPI: all other systems reviewed are Neg Physical Exam Narrative GENERAL: Well-developed well-nourished very pale 56-year-old male. SKIN: Conjunctival and sublingual pallor. HEAD: Atraumatic. Normocephalic. EYES: Pupils equal and round. No scleral icterus. No injection or drainage. ENT: No nasal bleeding or discharge. Mucous membranes pink and moist. NECK: Trachea midline. No JVD. CARDIOVASCULAR: Regular rate and rhythm. No murmur appreciated. RESPIRATORY: No accessory muscle use. Clear to auscultation. Breath sounds equal bilaterally. GASTROINTESTINAL: Actively vomiting dark emesis. Abdomen soft, non-tender, nondistended. Hepatic and splenic margins not palpable. MUSCULOSKELETAL: No obvious deformities. No clubbing. No cyanosis. No edema. NEUROLOGICAL: Awake and alert. No obvious cranial nerve deficits. Motor grossly within normal limits. Normal speech. PSYCHIATRIC: Appropriate mood and affect; insight and judgment normal. Data Data Last Documented VS Vital Signs Date Time Temp Pulse Resp B/P (MAP) Pulse Ox O2 Delivery O2 Flow Rate FiO2 07/01/17 04:59 108 20 115/54 (74) 100 Nasal Cannula 07/01/17 04:36 98.2 Orders Orders Complete Blood Count With Diff (07/01/17 04:10) Comprehensive Metabolic Panel (07/01/17 04:10) Lipase (07/01/17 04:10) Prothrombin Time / Inr (Pt) (07/01/17 04:10) Act Partial Throm Time (Ptt) (07/01/17 04:10) Type And Screen (07/01/17 04:10) Blood Product Administration (07/01/17 04:10) Ecg Monitoring (07/01/17 04:10) Iv Access Insert/Monitor (07/01/17 04:10) Oximetry (07/01/17 04:10) Ondansetron Inj (Zofran Inj) (07/01/17 04:15) Sodium Chloride 0.9% Flush (Ns Flush) (07/01/17 04:15) Famotidine Inj (Pepcid Inj) (07/01/17 04:15) Sodium Chloride 0.9... W/Pantoprazole In (07/01/17 04:10) Octreotide Inj (Sandostatin Inj) (07/01/17 04:15) Promethazine Inj (Phenergan Inj) (07/01/17 05:00) Ondansetron Inj (Zofran Inj) (07/01/17 05:00) Consult Gastroenterology (07/01/17 ) Sodium Chlor 0.9% 1000 Ml Inj (Ns 1000 M (07/01/17 05:00) Sodium Chlor 0.9% 1000 Ml Inj (Ns 1000 M (07/01/17 05:00) (Hub Use Only)Inp Phy Cons/Ref (07/01/17 ) Red Blood Cells (Rbc) (07/01/17 04:10) Admit Order (Ed Use Only) (07/01/17 ) Red Blood Cells (Rbc) (07/01/17 04:10) Labs Laboratory Tests Test 07/01/17 04:10 White Blood Count 13.9 TH/MM3 Red Blood Count 1.77 MIL/MM3 Hemoglobin 5.4 GM/DL Hematocrit 16.3 % Mean Corpuscular Volume 92.2 FL Mean Corpuscular Hemoglobin 30.6 PG Mean Corpuscular Hemoglobin Concent 33.2 % Red Cell Distribution Width 15.9 % Platelet Count 272 TH/MM3 Mean Platelet Volume 9.3 FL Neutrophils (%) (Auto) 85.0 % Lymphocytes (%) (Auto) 10.1 % Monocytes (%) (Auto) 4.5 % Eosinophils (%) (Auto) 0.1 % Basophils (%) (Auto) 0.3 % Neutrophils # (Auto) 11.8 TH/MM3 Lymphocytes # (Auto) 1.4 TH/MM3 Monocytes # (Auto) 0.6 TH/MM3 Eosinophils # (Auto) 0.0 TH/MM3 Basophils # (Auto) 0.0 TH/MM3 CBC Comment DIFF FINAL Differential Comment Prothrombin Time 12.7 SEC Prothromb Time International Ratio 1.3 RATIO Activated Partial Thromboplast Time 24.2 SEC Blood Urea Nitrogen 192 MG/DL Creatinine 8.03 MG/DL Random Glucose 267 MG/DL Total Protein 5.4 GM/DL Albumin 2.4 GM/DL Calcium Level 7.7 MG/DL Alkaline Phosphatase 206 U/L Aspartate Amino Transf (AST/SGOT) 7 U/L Alanine Aminotransferase (ALT/SGPT) 16 U/L Total Bilirubin 0.3 MG/DL Sodium Level 140 MEQ/L Potassium Level 5.3 MEQ/L Chloride Level 93 MEQ/L Carbon Dioxide Level 26.2 MEQ/L Anion Gap 21 MEQ/L Estimat Glomerular Filtration Rate 7 ML/MIN Lipase 187 U/L MDM Medical Decision Making Medical Screen Exam Complete: Yes Emergency Medical Condition: Yes Differential Diagnosis GI bleeding, esophageal varices, esophagitis, anemia, platelet dysfunction. Narrative Course Patient room to the emergency department, appears quite pale on arrival and moderately hypotensive. He is fluid responsive, initial consideration was given to emergently his blood however blood bank informs me that the patient has several antibodies, his blood pressure is normalizing with normal saline, I have therefore decided to hold off the rapid release O- blood in favor of properly typed and crossmatched units. Patient was given Protonix, octreotide, Pepcid IV. He was given a total of 3 L normal saline in the emergency department, ultimately given 2 units of PRBCs as well. Platelet count is normal however he is significantly uremic and DDAVP was added by critical care. Patient remains critically ill, hypovolemic and severely anemic. He was discussed with Dr. Pooja cantu who will plan for endoscopy later today, transfusions have been ordered. Patient discussed with Dr. Avalos who will admit. Critical Care Narrative Aggregate critical care time was 35 minutes. Time to perform other separately billable procedures was not included in the critical care time. My time did not include minutes spent treating any other patients simultaneously or on activities that did not directly contribute to the patient's treatment. The services I provided to this patient were to treat and/or prevent clinically significant deterioration that could result in: , Disability, Organ failure. I provided critical care services requiring my management, as noted below: Chart data review, documentation time, medication orders and management, vital sign assessments/reviewing monitor data, ordering and reviewing lab tests, ordering and interpreting/reviewing x-rays and diagnostic studies, care of the patient and discussion of the patient with the admitting physicians. Diagnosis Primary Impression: GI bleeding Additional Impressions: Hypotension Severe anemia Uremia Admitting Information Admitting Physician Requests: Admit Condition: Critical Chris Moise MD July 01, 2017 04:14
[2017-07-01] MEDS ORDERED: FAMOTIDINE 20 MG/2 ML VIAL IV PUSH ONE (04:15)
[2017-07-01] MEDS ORDERED: SODIUM CHLORIDE 0.9% FLUSH 10 ML FLUSH IVF PRN (04:15)
[2017-07-01] MEDS ORDERED: ONDANSETRON HCL 4 MG/2 ML VIAL IVP ONE (04:15)
[2017-07-01] MEDS ORDERED: OCTREOTIDE INJ 100 MCG/ML VIAL IV PUSH ONE (04:15)
[2017-07-01 04:35] LABS: AUTOMATED NEUTROPHIL # 11.8 TH/MM3 (1.8-7.7); BASOPHIL % 0.3 % (0.0-2.0); EOSINOPHIL % 0.1 % (0.0-4.0); LYMPH % 10.1 % (9.0-44.0); LYMPHOCYTE # 1.4 TH/MM3 (1.0-4.8); MEAN CELL VOLUME 92.2 FL (80.0-100.0); MEAN CORPUSCULAR HEMOGLOBIN 30.6 PG (27.0-34.0); MEAN CORPUSCULAR HGB CONC 33.2 % (32.0-36.0); MEAN PLATELET VOLUME 9.3 FL (7.0-11.0); MONO % 4.5 % (0.0-8.0); MONOCYTE # 0.6 TH/MM3 (0-0.9); PLATELET COUNT 272 TH/MM3 (150-450); RED BLOOD COUNT 1.77 MIL/MM3 (4.50-5.90); RED CELL DISTRIBUTION WIDTH 15.9 % (11.6-17.2); WHITE BLOOD COUNT 13.9 TH/MM3 (4.0-11.0)
[2017-07-01] MEDS ORDERED: FERR325T18 PO (04:38)
[2017-07-01 04:43] LABS: HEMATOCRIT 16.3 % (39.0-51.0); HEMOGLOBIN 5.4 GM/DL (13.0-17.0)
[2017-07-01 04:45] LABS: INTERNATIONAL NORMALIZED RATIO 1.3 RATIO; PROTHROMBIN TIME - PATIENT 12.7 SEC (9.8-11.6)
[2017-07-01 04:48] LABS: ALBUMIN 2.4 GM/DL (3.4-5.0); ALT (GPT) 16 U/L (12-78); AST (GOT) 7 U/L (15-37); BICARBONATE 26.2 MEQ/L (21.0-32.0); CALCIUM 7.7 MG/DL (8.5-10.1); CHLORIDE 93 MEQ/L (98-107); CREATININE 8.03 MG/DL (0.60-1.30); GLOMERULAR FILTRATION RATE 7 ML/MIN (>89); GLUCOSE,RANDOM 267 MG/DL (74-106); SODIUM (NA) 140 MEQ/L (136-145)
[2017-07-01 04:50] LABS: ALKALINE PHOSPHATASE 206 U/L (45-117); TOTAL BILIRUBIN ADULT 0.3 MG/DL (0.2-1.0); TOTAL PROTEIN 5.4 GM/DL (6.4-8.2)
[2017-07-01] MEDS ORDERED: SODIUM CHLOR 0.9% 1000 ML INJ 1,000 ML IV ONE ×2 (05:00)
[2017-07-01] MEDS ORDERED: PROMETHAZINE INJ 25 MG/ML VIAL IM ONE (05:00)
[2017-07-01] MEDS ORDERED: ONDANSETRON HCL 4 MG/2 ML VIAL IV PUSH ONE (05:00)
[2017-07-01 05:18] LABS: BLOOD UREA NITROGEN 192 MG/DL (7-18)
[2017-07-01] MEDS ORDERED: DESMOPRESSIN IV ONE (05:45)
[2017-07-01] MEDS ORDERED: SODIUM CHLORIDE 0.9% IV ONE (05:45)
--- NOTE | 2017-07-01 05:57 | HHI.HP ---
[facility] Service Critical Care Medicine Primary Care Physician Felix Antony MD Admission Diagnosis Severe Anemia, GI bleeding Diagnosis: (1) Schizophrenia Diagnosis: Secondary (2) Hyperlipidemia Diagnosis: Secondary (3) Anxiety Diagnosis: Secondary (4) GI bleeding Diagnosis: Principal (5) Hypertension Diagnosis: Secondary (6) End stage renal failure on dialysis Diagnosis: Secondary (7) Anemia Diagnosis: Principal (8) DM (diabetes mellitus) Travel History International Travel<30 Days: No Contact w/Intl Traveler <30 Da: No Traveled to Known Affected Are: No History of Present Illness 56-year-old male with past medical history of end-stage renal disease on hemodialysis Friday, , Friday., Schizophrenia, GERD, esophagitis, type 2 diabetes mellitus, hypertension, aortic stenosis status post TAVR 02/07/17. He resides at [facility] and rehab. He was sent to [facility] emergency department after multiple episodes of coffee- ground emesis that appears to have started at around 20: 00 on 06/30. He states he has vomited 3-4 times. He has some cramping mid abdominal pain but no tenderness. He states his last bowel movement was yesterday and was brown. He is on aspirin and Plavix but no anticoagulation. Platelet count is normal. INR is 1.3. Hemoglobin is 5.4. He is tachycardic with heart rate in the 110s. Blood pressure robert is 96/50 with mean arterial pressure of 65. BUN is 192. He denies NSAID use. Does not appear to have history of varices or liver disease. He has received Zofran, octreotide 100 mcg IV, 2 L normal saline bolus , Protonix drip, Zofran 8 mg IV, Phenergan in the emergency department. Packed red blood cells 4 units have been typed and crossed. Blood bank indicates he has multiple antibodies. Review of Systems ROS Limitations: Other (Confused) Constitutional: DENIES: Fever Eyes: DENIES: Eye pain Respiratory: DENIES: Cough Cardiovascular: DENIES: Syncope Gastrointestinal: COMPLAINS OF: Abdominal pain, Nausea, Vomiting Neurologic: DENIES: Headache Psychiatric: COMPLAINS OF: Confusion Past Family Social History Allergies: Coded Allergies: fexofenadine (Unverified Adverse Reaction, Unknown, PT DENIES ALLERGY, ) Pt denies allergy Past Medical History End-stage renal disease on hemodialysis Friday//Friday Hypertension Schizophrenia Diabetes Chronic diastolic heart failure History of aortic stenosis now status post TAVR 02/07/17 Hiatal hernia Esophagitis Gastritis Past Surgical History Cardiac catheterization Dr. dewey Hip replacement TAVR 02/07/[address] Dr[address] dewey Colonoscopy 01/20/[address] Hollins EGD 05/10/16 LA class B esophagitis, gastritis, duodenitis Reported Medications Ferrous sulfate 325 mill grams p.o. twice daily Plavix 75 mg p.o. daily Metoprolol 12.5 mg p.o. twice daily Aspirin 81 mg p.o. daily Acetaminophen 650 mg p.o. every 6 hours as needed for pain Depakote ER 500 mill grams p.o. twice daily Prozac 20 mg p.o. nightly Mirtazapine 30 mill grams p.o. nightly Geodon 30 mg p.o. twice daily Lorazepam 0.5 mg every 4 hours as needed for anxiety Vistaril 25 mill grams p.o. 4 times daily Renvela 800 mg p.o. 3 times daily Calcium carbonate 500 mg p.o. 3 times daily MiraLAX 17 g p.o. daily Omeprazole 20 mg p.o. daily Levemir 5 mill grams p.o. nightly Vitamin B12 and folic acid p.o. daily Vitamin C 500 mg p.o. twice daily Cholecalciferol 2000 units p.o. 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 SKIN: Very pale and cool to touch., scars and multiple lesions from what appears to be picking behavior. HEAD: Atraumatic. Normocephalic. EYES: Pupils equal and round, 3 mm and reactive bilaterally.. No scleral icterus. No injection or drainage. Conjunctive are pale ENT: No nasal bleeding or discharge. Mucous membranes pink and moist. NECK: Trachea midline. No JVD. CARDIOVASCULAR: Tachycardic, regular, sinus tach on the monitor.. RESPIRATORY: Appears mildly tachypneic but there is no accessory muscle use. Clear to auscultation. Breath sounds equal bilaterally. On nasal cannula. GASTROINTESTINAL: Abdomen soft, mildly distended and tympanitic. No tenderness to palpation. No rebound or guarding. Bowel sounds present. MUSCULOSKELETAL: Extremities without clubbing, cyanosis, or edema. No obvious deformities. NEUROLOGICAL: Awake and alert, oriented to self and hospital. Confused.. No obvious cranial nerve deficits. Motor grossly within normal limits. Normal speech. Laboratory Laboratory Tests Test 07/01/17 04:10 White Blood Count 13.9 Red Blood Count 1.77 Hemoglobin 5.4 Hematocrit 16.3 Mean Corpuscular Volume 92.2 Mean Corpuscular Hemoglobin 30.6 Mean Corpuscular Hemoglobin Concent 33.2 Red Cell Distribution Width 15.9 Platelet Count 272 Mean Platelet Volume 9.3 Neutrophils (%) (Auto) 85.0 Lymphocytes (%) (Auto) 10.1 Monocytes (%) (Auto) 4.5 Eosinophils (%) (Auto) 0.1 Basophils (%) (Auto) 0.3 Neutrophils # (Auto) 11.8 Lymphocytes # (Auto) 1.4 Monocytes # (Auto) 0.6 Eosinophils # (Auto) 0.0 Basophils # (Auto) 0.0 CBC Comment DIFF FINAL Differential Comment Prothrombin Time 12.7 Prothromb Time International Ratio 1.3 Activated Partial Thromboplast Time 24.2 Blood Urea Nitrogen 192 Creatinine 8.03 Random Glucose 267 Total Protein 5.4 Albumin 2.4 Calcium Level 7.7 Alkaline Phosphatase 206 Aspartate Amino Transf (AST/SGOT) 7 Alanine Aminotransferase (ALT/SGPT) 16 Total Bilirubin 0.3 Sodium Level 140 Potassium Level 5.3 Chloride Level 93 Carbon Dioxide Level 26.2 Anion Gap 21 Estimat Glomerular Filtration Rate 7 Lipase 187 Result Diagram: 07/01/1740907/01/17409 Caprini VTE Risk Assessment Caprinida VTE Risk Assessment: Mod/High Risk (score >= 2) VTE Pharm Contraindication: Active bleeding Tobirinida Risk Assessment Model Point Value = 1 Point Value = 2 Point Value = 3 Point Value = 5 Age 41-60 Minor surgery BMI > 25 kg/m2 Swollen legs Varicose veins or History of unexplained or recurrent spontaneous Oral contraceptives or hormone replacement Sepsis (< 1 month) Serious lung disease, including pneumonia (< 1 month) Abnormal pulmonary function Acute myocardial infarction Congestive heart failure (< 1 month) History of inflammatory bowel disease Medical patient at bed rest Age 61-74 Arthroscopic surgery Major open surgery (> 45 min) Laparoscopic surgery (> 45 min) Malignancy Confined to bed (> 72 hours) Immobilizing plaster cast Central venous access Age >= 75 History of VTE Family history of VTE Factor V Leiden Prothrombin [id number] Lupus anticoagulant Anticardiolipin antibodies Elevated serum homocysteine Heparin-induced thrombocytopenia Other congenital or acquired thrombophilia Stroke (< 1 month) Elective arthroplasty Hip, pelvis, or leg fracture Acute spinal cord injury (< 1 month) Prophylaxis Regimen Total Risk Factor Score Risk Level Prophylaxis Regimen 0-1 Low Early ambulation 2 Moderate Order ONE of the following: *Sequential Compression Device (SCD) *Heparin 5000 units SQ BID 3-4 Higher Order ONE of the following medications: *Heparin 5000 units SQ TID *Enoxaparin/Lovenox 40 mg SQ daily (WT < 150 kg, CrCl > 30 mL/min) *Enoxaparin/Lovenox 30 mg SQ daily (WT < 150 kg, CrCl > 10-29 mL/min) *Enoxaparin/Lovenox 30 mg SQ BID (WT < 150 kg, CrCl > 30 mL/min) AND/OR *Sequential Compression Device (SCD) 5 or more Highest Order ONE of the following medications: *Heparin 5000 units SQ TID (Preferred with Epidurals) *Enoxaparin/Lovenox 40 mg SQ daily (WT < 150 kg, CrCl > 30 mL/min) *Enoxaparin/Lovenox 30 mg SQ daily (WT < 150 kg, CrCl > 10-29 mL/min) *Enoxaparin/Lovenox 30 mg SQ BID (WT < 150 kg, CrCl > 30 mL/min) AND *Sequential Compression Device (SCD) Assessment and Plan Problem List: (1) GI bleeding ICD Code: K92.2 - Gastrointestinal hemorrhage, unspecified Status: Acute (2) Hypertension ICD Code: I10 - Hypertension Status: Acute (3) End stage renal failure on dialysis ICD Code: N18.6 - End stage renal failure on dialysis; Z99.2 - Dependence on renal dialysis Status: Chronic (4) Anemia ICD Code: D64.9 - Anemia Status: Chronic (5) DM (diabetes mellitus) ICD Code: E11.9 - DM (diabetes mellitus) Status: Chronic (6) Anxiety ICD Code: F41.9 - Anxiety Status: Chronic (7) Hyperlipidemia ICD Code: E78.5 - Hyperlipidemia Status: Chronic (8) Schizophrenia ICD Code: F20.9 - Schizophrenia Status: Chronic Assessment and Plan NEURO: Schizophrenia Anxiety Depakote 500 mg IV every 12 hours Hydroxyzine Continue mirtazapine 30 mill grams p.o. nightly Continue Prozac 20 mill grams p.o. nightly Continue Geodon 80 mg p.o. twice daily RESP: Nasal cannula wean as tolerated CV: Aortic stenosis now status post TAVR 02/07/17 Hypertension Diabetes Chronic diastolic heart failure Hold aspirin and Plavix due to acute bleeding Hold metoprolol 12.5 mg p.o. twice daily for now. GI: Upper GI bleeding h/o gastritis or esophagitis Protonix drip, serial hemoglobin, gastroenterology consult FEN/RENAL: ESRD Monitor intake and output. Monitor electrolytes. Replace electrolytes as indicated Resume Renvela when taking p.o. Nephrology consult for HD ID: Monitor for signs and symptoms of infection. HEME: Acute blood loss anemia Continue ferrous sulfate 325 mg p.o. twice daily Serial hemoglobin every 6 hours. DDAVP 0.4 mcg/kg due to uremia and bleeding. Transfuse as indicated for hemoglobin less than 7 ENDO: Diabetes mellitus Detemir 5 units subcu nightly Low-dose insulin sliding scale with bedside glucose every 4 hours PROPH: SCDs for DVT prophylaxis. Pharmacologic DVT prophylaxis contraindicated due to acute GI bleeding. Protonix drip ACCESS: Has 18-gauge and 20-gauge peripheral IV. Patient is critically ill with active GI bleeding and life-threatening anemia. He is referred remake with platelet dysfunction. He is at high risk for further decompensation and . Patient has advanced directives. He is full code. Critical care time 60 minutes exclusive of separately billable procedures. Inge Avalos MD July 01, 2017 05:57
[2017-07-01] MEDS ORDERED: SODIUM CHLOR 0.9% 1000 ML INJ 1,000 ML IV SCH (06:27)
[2017-07-01] MEDS ORDERED: ONDANSETRON HCL 4 MG/2 ML VIAL IV PUSH PRN ×2 (06:30→09:00)
[2017-07-01] MEDS ORDERED: RESP: ALBUTEROL 2.5 MG/3 ML NEB (PRN) INH (06:30)
[2017-07-01] MEDS ORDERED: SODIUM CHLORIDE 0.9% FLUSH 10 ML FLUSH IV FLUSH PRN ×2 (06:30→09:00)
[2017-07-01] MEDS ORDERED: MORPHINE SULFATE 4 MG/ML INJ IV PUSH PRN (06:30)
[2017-07-01] MEDS ORDERED: NURSING INFORMATION XX SCH (06:30)
[2017-07-01] MEDS ORDERED: CHLORHEXIDINE GLUCONATE 2 % 1 PACK (2 CLOTHS) TOP PRN (06:30)
[2017-07-01] MEDS ORDERED: CALCIUM CARBONATE 500 MG CHEWABLE TAB PO PRN (06:45)
[2017-07-01] MEDS ORDERED: VALPROATE INJ 500 MG in SODIUM CHLORIDE 0.9% INJ 100 ML IV ONE (07:00)
[2017-07-01] MEDS ORDERED: DEXTROSE 50% IN WATER 50 ML VIAL(D50) IV PUSH PRN (07:00)
[2017-07-01] MEDS ORDERED: GLUCAGON 1 MG/ML VIAL OTHER PRN (07:00)
[2017-07-01] MEDS: INSULIN ASPART SUPPLEMENTAL SCALE SQ SCH ×5 (08:00→23:03)
[2017-07-01] MEDS: PANTOPRAZOLE INJ 80 MG in SODIUM CHLORIDE 0.9% INJ 100 ML IV SCH ×2 (08:21→17:00)
[2017-07-01] MEDS ORDERED: SODIUM CHLOR 0.9% 1000 ML INJ 1,000 ML OTHER PRN ×2 (08:54)
[2017-07-01] MEDS ORDERED: SODIUM CHLOR 0.9% 1000 ML INJ 1,000 ML IV PRN (08:54)
[2017-07-01] MEDS ORDERED: EPOETIN ALFA 10,000 UNITS/ML VIAL IV PUSH PRN (09:00)
[2017-07-01] MEDS: FERROUS SULFATE 325 MG (65 MG ELEMENTAL IRON) TAB PO SCH ×2 (09:00→19:51)
[2017-07-01] MEDS ORDERED: HEPARIN SODIUM - IV 10,000 UNITS/10 ML VIAL PRN (09:00)
[2017-07-01] MEDS ORDERED: ALBUMIN 25% INJ 100 ML IV PRN (09:00)
[2017-07-01] MEDS ORDERED: GENTAMICIN SULFATE 20 MG/2 ML VIAL OTHER PRN (09:00)
[2017-07-01] MEDS ORDERED: NITROGLYCERIN 0.4 MG SL 25 TABS/BTL SL PRN (09:00)
[2017-07-01] MEDS: ZIPRASIDONE HCL 80 MG CAP PO SCH ×2 (09:00→21:00)
[2017-07-01] MEDS ORDERED: diphenhydrAMINE HCL 25 MG CAP PO PRN (09:00)
[2017-07-01] MEDS ORDERED: MANNITOL 12.5 GM/50 ML VIAL IV PRN (09:00)
[2017-07-01] MEDS ORDERED: cloNIDine HCL 0.1 MG TAB PO PRN (09:00)
[2017-07-01] MEDS ORDERED: ACETAMINOPHEN 325 MG TAB PO PRN (09:00)
[2017-07-01] MEDS ORDERED: HEPARIN SODIUM - IV 10,000 UNITS/10 ML VIAL IV FLUSH PRN (09:00)
[2017-07-01] MEDS: SODIUM CHLORIDE 0.9% FLUSH 10 ML FLUSH IV FLUSH SCH ×2 (09:00→21:00)
[2017-07-01] MEDS ORDERED: GELATIN 12 MM/7 MM FOAM TOP PRN (09:00)
--- NOTE | 2017-07-01 09:07 | PD.CONS ---
HPI History of Present Illness This is a 56 year old male with hx schizophrenia, esophagitis, s/p TAVR 01/2017 who presented from rehab after multiple episodes coffee ground emesis. Onset yesterday. He denies abd pain, blood in stool, black tarry stool, prior hx GIB. Takes plavix and ASA, last had plavix yesterday. He sees Dr Rodriguez in the office. He had an incomplete colonoscopy d/t poor prep in 12/[address] Hollins; EGD 10/[address] Escudero revealing Class D esophagitis, gastritis. Pt is poor historian. (Sanjuana Amos) PFSH Past Medical History schizophrenia gerd gastritis esophagitis class D aortic stenosis Past Surgical History TAVR (Sanjuana Amos) Coded Allergies: fexofenadine (Unverified Adverse Reaction, Unknown, PT DENIES ALLERGY, ) Pt denies allergy Family History denies Social History denies toxic habits (Sanjuana Amos) Review of Systems Constitutional: COMPLAINS OF: Fatigue, DENIES: Fever Endocrine: DENIES: Polydipsia Eyes: DENIES: Blurred vision Ears, nose, mouth, throat: DENIES: Hearing loss Respiratory: DENIES: Cough Cardiovascular: DENIES: Chest pain Gastrointestinal: COMPLAINS OF: Nausea, Vomiting, Hematemesis, DENIES: Abdominal pain, Black stools, Bloody stools Genitourinary: DENIES: Hematuria Musculoskeletal: DENIES: Muscle aches Integumentary: DENIES: Abnormal pigmentation Hematologic/lymphatic: DENIES: Bruising Immunologic/allergic: DENIES: Eczema Neurologic: DENIES: Abnormal gait Psychiatric: DENIES: Confusion (Sanjuana Amos) GI Exam Vitals I&O Vital Signs Date Time Temp Pulse Resp B/P (MAP) Pulse Ox O2 Delivery O2 Flow Rate FiO2 07/01/17 07:41 98.4 96 19 112/60 100 07/01/17 07:14 98.3 99 24 119/55 100 07/01/17 07:07 98.3 100 28 119/55 100 07/01/17 06:45 Nasal Cannula 2.00 07/01/17 06:07 97.6 103 20 115/57 100 07/01/17 05:48 96.9 103 22 107/58 100 07/01/17 04:59 108 20 115/54 (74) 100 Nasal Cannula 07/01/17 04:36 98.2 113 96/50 (65) 100 Nasal Cannula 07/01/17 04:33 113 20 99/53 (68) 100 Nasal Cannula 07/01/17 04:08 124 24 138/64 (88) 100 I/O 06/30/17 06/30/17 06/30/17 07/01/17 07/01/17 07/01/17 07:00 15:00 23:00 07:00 15:00 23:00 Intake Total 2060 ml 400 ml Balance 2060 ml 400 ml Intake IV Total 2035 ml Packed Cells 400 ml Blood Product IV Normal Saline Flush 25 ml Laboratory Test 07/01/17 04:10 White Blood Count 13.9 TH/MM3 Red Blood Count 1.77 MIL/MM3 Hemoglobin 5.4 GM/DL Hematocrit 16.3 % Mean Corpuscular Volume 92.2 FL Mean Corpuscular Hemoglobin 30.6 PG Mean Corpuscular Hemoglobin Concent 33.2 % Red Cell Distribution Width 15.9 % Platelet Count 272 TH/MM3 Mean Platelet Volume 9.3 FL Neutrophils (%) (Auto) 85.0 % Lymphocytes (%) (Auto) 10.1 % Monocytes (%) (Auto) 4.5 % Eosinophils (%) (Auto) 0.1 % Basophils (%) (Auto) 0.3 % Neutrophils # (Auto) 11.8 TH/MM3 Lymphocytes # (Auto) 1.4 TH/MM3 Monocytes # (Auto) 0.6 TH/MM3 Eosinophils # (Auto) 0.0 TH/MM3 Basophils # (Auto) 0.0 TH/MM3 CBC Comment DIFF FINAL Differential Comment Prothrombin Time 12.7 SEC Prothromb Time International Ratio 1.3 RATIO Activated Partial Thromboplast Time 24.2 SEC Blood Urea Nitrogen 192 MG/DL Creatinine 8.03 MG/DL Random Glucose 267 MG/DL Total Protein 5.4 GM/DL Albumin 2.4 GM/DL Calcium Level 7.7 MG/DL Alkaline Phosphatase 206 U/L Aspartate Amino Transf (AST/SGOT) 7 U/L Alanine Aminotransferase (ALT/SGPT) 16 U/L Total Bilirubin 0.3 MG/DL Sodium Level 140 MEQ/L Potassium Level 5.3 MEQ/L Chloride Level 93 MEQ/L Carbon Dioxide Level 26.2 MEQ/L Anion Gap 21 MEQ/L Estimat Glomerular Filtration Rate 7 ML/MIN Lipase 187 U/L Physical Examination HEENT: PERRL; normocephalic; atraumatic; no jaundice. CHEST: CTA CARDIAC: tachy ABDOMEN: Soft, nondistended, nontender; no hepatosplenomegaly; bowel sounds are present in all four quadrants. EXTREMITIES: No clubbing, cyanosis, or edema. SKIN: pale CLAM GRADER: tremulous (Sanjuana Amos) Assessment and Plan Plan ASSESSMENT - coffee ground emesis - UGIB. hx gastritis, class d esophagitis seen on last EGD 10/2016. - anemia - normocytic. hgb 5.3 on admission. 03/28 above. last colonoscopy 2016 and incomplete with poor prep. - isolated elevated ALP - unclear significance PLAN - EGD today - obtain consent - NPO - cont protonix - continue transfusing - colonoscopy timing TBD pt seen by myself and Dr Rodriguez and this note is on his behalf (Sanjuana Amos) Physician Comments Seen and examined with DAVY, transfuse to keep Hb > 8.0. Iv protonix. EGD planned for today. Thank you (Love Rodriguez MD) Sanjuana Amos July 01, 2017 09:07 Love Rodriguez MD July 01, 2017 16:57
--- NOTE | 2017-07-01 10:52 | EKG ---
Date Performed: 07/01/2017 Time Performed: 04:42:55 PTAGE: 56 years EKG: SINUS TACHYCARDIA RIGHT BUNDLE BRANCH BLOCK LEFT ANTERIOR FASCICULAR BLOCK POSSIBLE SEPTAL MYOCARDIAL INFARCTION ABNORMAL ECG PREVIOUS TRACING : 02/08/2017 04.34 DOCTOR: Nash Garcia Interpretating Date/Time 07/01/2017 10:48:54
[2017-07-01] MEDS ORDERED: LIDOCAINE HCL 1% PF 5 ML SYRINGE OTHER ONE (12:00)
[2017-07-01] MEDS ORDERED: PROPOFOL 200 MG/20 ML AMP IV ONE (12:00)
[2017-07-01] MEDS ORDERED: PHENYLEPH/NS 1000 MCG/10 ML SYR IV ONE (12:00)
--- NOTE | 2017-07-01 12:17 | PD.CONS ---
HPI Service Nephrology Consult Requested By Reason for Consult ESRD on HD Primary Care Physician Felix Antony MD History of Present Illness This is our 56y/o male dialysis patient admitted with severe anemia and GI bleed /coffee ground emesis. He dialyzes TTS, is seen during dialysis today. His hemoglobin is 5.4 today, he is receiving his 3rd unit of packed cells during dialysis. He reports minor abdominal pain, is awake and alert, but pallor is noted. We were consulted for dialysis management. He is a full code. (Zahra Aguilar) Review of Systems Cardiovascular: DENIES: Chest pain Gastrointestinal: COMPLAINS OF: Abdominal pain, Vomiting (Zahra Aguilar) Past Family Social History Allergies: Coded Allergies: fexofenadine (Unverified Adverse Reaction, Unknown, PT DENIES ALLERGY, ) Pt denies allergy Past Medical History End-stage renal disease on hemodialysis Friday//Friday Hypertension Schizophrenia Diabetes Chronic diastolic heart failure History of aortic stenosis now status post TAVR 02/07/17 Hiatal hernia Esophagitis Gastritis Past Surgical History Cardiac catheterization Dr. dewey Hip replacement TAVR 02/07/[address] Dr[address] dewey Colonoscopy 01/20/[address] Hollins EGD 05/10/16 LA class B esophagitis, gastritis, duodenitis Reported Medications Reported Medications Ferrous sulfate 325 mill grams p.o. twice daily Plavix 75 mg p.o. daily Metoprolol 12.5 mg p.o. twice daily Aspirin 81 mg p.o. daily Acetaminophen 650 mg p.o. every 6 hours as needed for pain Depakote ER 500 mill grams p.o. twice daily Prozac 20 mg p.o. nightly Mirtazapine 30 mill grams p.o. nightly Geodon 30 mg p.o. twice daily Lorazepam 0.5 mg every 4 hours as needed for anxiety Vistaril 25 mill grams p.o. 4 times daily Renvela 800 mg p.o. 3 times daily Calcium carbonate 500 mg p.o. 3 times daily MiraLAX 17 g p.o. daily Omeprazole 20 mg p.o. daily Levemir 5 mill grams p.o. nightly Vitamin B12 and folic acid p.o. daily Vitamin C 500 mg p.o. twice daily Cholecalciferol 2000 units p.o. daily Active Ordered Medications Current Medications Medications (Trade) Dose Ordered Sig/Diane Route Start Time Stop Time Status Last Admin Pantoprazole Sodium 80 mg/ Sodium Chloride 100 ml @ 10 mls/hr Q10H IV 07/01/17 07:00 07/01/17 08:21 (NS Flush) 2 ml UNSCH PRN IV FLUSH 07/01/17 06:30 (NS Flush) 2 ml BID IV FLUSH 07/01/17 09:00 (Morphine Inj) 2 mg Q2H PRN IV PUSH 07/01/17 06:30 (Zofran Inj) 4 mg Q6H PRN IV PUSH 07/01/17 06:30 (Albuterol Neb) 2.5 mg Q2HR NEB PRN INH 07/01/17 06:30 ([facility]) 1 Q361D XX 07/01/17 06:30 (Chlorhexidine 2% Cloth) 3 pack Taper DAILY@04 TOP 07/02/17 04:00 06/28/18 03:59 (Chlorhexidine 2% Cloth) 3 pack UNSCH PRN TOP 07/01/17 06:30 (Tums Chew) 500 mg TIDPC PRN PO 07/01/17 06:45 (Ferrous Sulfate) 325 mg BIDPC PO 07/01/17 09:00 (PROzac) 20 mg HS PO 07/01/17 21:00 (Levemir Inj) 5 units HS SQ 07/01/17 21:00 (Remeron) 30 mg HS PO 07/01/17 21:00 (Geodon) 80 mg BID PO 07/01/17 09:00 Valproate Sodium 500 mg/Sodium Chloride 105 ml @ 105 mls/hr Q12H IV 07/01/17 21:00 (Vistaril Inj) 25 mg Q6H PRN IM 07/01/17 06:45 (D50w (Vial) Inj) 50 ml UNSCH PRN IV PUSH 07/01/17 07:00 (Glucagon Inj) 1 mg UNSCH PRN OTHER 07/01/17 07:00 (NovoLOG SUPPLEMENTAL SCALE) 1 Q4HR SQ 07/01/17 08:00 Sodium Chloride 1,000 ml @ 0 mls/hr Q0M PRN OTHER 07/01/17 08:54 (Heparin Inj) 8,000 units UNSCH PRN IV FLUSH 07/01/17 09:00 Sodium Chloride 1,000 ml @ 200 mls/hr Q5H PRN IV 07/01/17 08:54 Sodium Chloride 1,000 ml @ 0 mls/hr Q0M PRN OTHER 07/01/17 08:54 (Mannitol Inj) 12.5 gm UNSCH PRN IV 07/01/17 09:00 Albumin Human 100 ml @ 60 mls/hr UNSCH PRN IV 07/01/17 09:00 (NS Flush) 5 ml UNSCH PRN IV FLUSH 07/01/17 09:00 (Heparin Inj) UNSCH PRN .XX 07/01/17 09:00 (Gentamicin Inj) 20 mg UNSCH PRN OTHER 07/01/17 09:00 (Zofran Inj) 4 mg UNSCH PRN IV PUSH 07/01/17 09:00 (Tylenol) 650 mg UNSCH PRN PO 07/01/17 09:00 (Benadryl) 25 mg UNSCH PRN PO 07/01/17 09:00 (Nitrostat Sl) 0.4 mg UNSCH PRN SL 07/01/17 09:00 (Catapres) 0.1 mg UNSCH PRN PO 07/01/17 09:00 (Epogen Inj) 10,000 units UNSCH PRN IV PUSH 07/01/17 09:00 (Gelfoam 12 Mm/7 Mm Top) 1 foam UNSCH PRN TOP 07/01/17 09:00 Family History Non contributory Social History Full code Lives in intermediate Uses wheelchair Non smoker (Zahra Aguilar) Physical Exam Vital Signs Vital Signs Date Time Temp Pulse Resp B/P (MAP) Pulse Ox O2 Delivery O2 Flow Rate FiO2 07/01/17 09:07 97.9 89 19 111/56 (74) 100 Room Air 07/01/17 09:06 97.9 90 24 111/56 100 07/01/17 07:41 98.4 96 19 112/60 100 07/01/17 07:14 98.3 99 24 119/55 100 07/01/17 07:07 98.3 100 28 119/55 100 07/01/17 06:45 Nasal Cannula 2.00 07/01/17 06:07 97.6 103 20 115/57 100 07/01/17 05:48 96.9 103 22 107/58 100 07/01/17 04:59 108 20 115/54 (74) 100 Nasal Cannula 07/01/17 04:36 98.2 113 96/50 (65) 100 Nasal Cannula 07/01/17 04:33 113 20 99/53 (68) 100 Nasal Cannula 07/01/17 04:08 124 24 138/64 (88) 100 Physical Exam Middle aged male appears older than stated age He is pale Awake and alert, follows commands S1/S2, RRR Abd mildly soft Ext without edema Multiple areas on skin ulcerated from picking Laboratory Laboratory Tests Test 07/01/17 04:10 White Blood Count 13.9 Red Blood Count 1.77 Hemoglobin 5.4 Hematocrit 16.3 Mean Corpuscular Volume 92.2 Mean Corpuscular Hemoglobin 30.6 Mean Corpuscular Hemoglobin Concent 33.2 Red Cell Distribution Width 15.9 Platelet Count 272 Mean Platelet Volume 9.3 Neutrophils (%) (Auto) 85.0 Lymphocytes (%) (Auto) 10.1 Monocytes (%) (Auto) 4.5 Eosinophils (%) (Auto) 0.1 Basophils (%) (Auto) 0.3 Neutrophils # (Auto) 11.8 Lymphocytes # (Auto) 1.4 Monocytes # (Auto) 0.6 Eosinophils # (Auto) 0.0 Basophils # (Auto) 0.0 CBC Comment DIFF FINAL Differential Comment Prothrombin Time 12.7 Prothromb Time International Ratio 1.3 Activated Partial Thromboplast Time 24.2 Blood Urea Nitrogen 192 Creatinine 8.03 Random Glucose 267 Total Protein 5.4 Albumin 2.4 Calcium Level 7.7 Alkaline Phosphatase 206 Aspartate Amino Transf (AST/SGOT) 7 Alanine Aminotransferase (ALT/SGPT) 16 Total Bilirubin 0.3 Sodium Level 140 Potassium Level 5.3 Chloride Level 93 Carbon Dioxide Level 26.2 Anion Gap 21 Estimat Glomerular Filtration Rate 7 Lipase 187 (Zahra Aguilar) Result Diagram: 07/01/1740907/01/17409 Assessment and Plan Problem List: (1) End stage renal failure on dialysis ICD Codes: N18.6 - End stage renal failure on dialysis; Z99.2 - Dependence on renal dialysis Status: Chronic Plan: Resume HD TTS Seen during dialysis today on a 2K,, 350 BFR, goal 2L Intermittently monitor electrolyte profile Avoid IVF administration AVF for HD use (2) Anemia ICD Codes: D64.9 - Anemia Status: Chronic Plan: 3 units PRBC transfusing Order iron profile Epogen with dialysis has been ordered (3) DM (diabetes mellitus) ICD Codes: E11.9 - DM (diabetes mellitus) Status: Chronic Plan: Maintain glucose 140-180mg/dL while hospitalized (4) GI bleeding ICD Codes: K92.2 - Gastrointestinal hemorrhage, unspecified Status: Acute Plan: GI to consult appreciate recommendations On Protonix Transfuse as needed (Zahra Aguilar) Problem List: (1) End stage renal failure on dialysis ICD Codes: N18.6 - End stage renal failure on dialysis; Z99.2 - Dependence on renal dialysis Status: Chronic Plan: Resume HD TTS Seen during dialysis today on a 2K,, 350 BFR, goal 2L Intermittently monitor electrolyte profile Avoid IVF administration AVF for HD use (2) Anemia ICD Codes: D64.9 - Anemia Status: Chronic Plan: 3 units PRBC transfusing Order iron profile Epogen with dialysis has been ordered (3) DM (diabetes mellitus) ICD Codes: E11.9 - DM (diabetes mellitus) Status: Chronic Plan: Maintain glucose 140-180mg/dL while hospitalized (4) GI bleeding ICD Codes: K92.2 - Gastrointestinal hemorrhage, unspecified Status: Acute Plan: GI to consult appreciate recommendations On Protonix Transfuse as needed Assessment and Plan patient was seen and examined. Patient with ESRD admitted with GI bleeding. EGD revealed Alcira-Day tear. GI on the case. On Protonix. Monitor Hemoglobin. (Felix Andersen MD) Zahra Aguilar July 01, 2017 12:17 Felix Andersen MD July 01, 2017 21:39
[2017-07-01 14:41] LABS: HEMATOCRIT 22.6 % (39.0-51.0); HEMOGLOBIN 7.8 GM/DL (13.0-17.0)
[2017-07-01] MEDS ORDERED: ROCURONIUM INJ 50 MG/5 ML SYRINGE IV PUSH ONE (14:41)
--- NOTE | 2017-07-01 15:00 | GIPROC ---
[facility] [address] [facility] [facility], [address] EGD PROCEDURE REPORT EXAM DATE: 07/01/2017 PATIENT NAME: Hemal Herron MR #: [id number] BIRTHDATE: 1960 ATTENDING: Love Rodriguez MD ORDER #: [id number] MANAGER CHEMICAL: Marni Kirkland and Ro Cespedes STATUS: inpatient INDICATIONS: The patient is a 56 yr old male here for an EGD due to acute post hemorrhagic anemia PROCEDURE PERFORMED: EGD w/ biopsy MEDICATIONS: None and Per Anesthesia. TOPICAL ANESTHETIC: CONSENT: The patient understands the risks and benefits of the procedure and understands that these risks include, but are not limited to: sedation, allergic reaction, infection, perforation and/or bleeding. Alternative means of evaluation and treatment include, among others: physical exam, x-rays, and/or surgical intervention. The patient elects to proceed with this endoscopic procedure. medical equipment was checked for proper function. Hand hygiene and appropriate measures for infection prevention was taken. After the risks, benefits and alternatives of the procedure were thoroughly explained, Informed consent was verified, confirmed and timeout was successfully executed by the treatment team. The patient was anesthetized with topical anesthesia and the [employer] [id number] endoscope was introduced through the mouth and advanced to the second portion of the duodenum. Retroflexed views revealed blood clot The gastroscope was then slowly withdrawn and removed. ESOPHAGUS: There was LA Class C esophagitis noted. A biopsy was performed using cold forceps. Sample sent for histology. Alcira wiess tear. STOMACH: There was erythematous moderate gastritis. DUODENUM: The duodenal mucosa appeared normal in the bulb and second portion of the duodenum. ADVERSE EVENTS: There were no complications. IMPRESSIONS: 1. There was LA Class C esophagitis noted; biopsy was performed 2. Alcira wiess tear 3. There was erythematous gastritis 4. Normal duodenal mucosa in the bulb and second portion of the duodenum 5. Retroflexed views revealed blood clot RECOMMENDATIONS: 1. Await biopsy results. Biopsy results will not be ready for 7-10 days. If you don't hear from us in two weeks, call our office for biopsy results. 2. Anti-reflux regimen 3. Continue PPI PATIENT CONDITION: stable DISPOSITION: Inpatient REPEAT EXAM: Return 1 month EGD pending biopsy results Love Rodriguez MD eSigned: Love Rodriguez MD 07/01/2017 3:00 PM cc: PATIENT NAME: Hemal Herron MR#: [id number]
[2017-07-01] MEDS ORDERED: DO NOT ADM ANY ANTICOAGULANT DRUGS PRN (15:13)
[2017-07-01] MEDS ORDERED: SUGAMMADEX SODIUM 200 MG/2 ML VIAL IV PUSH ONE (15:19)
[2017-07-01] MEDS: VALPROATE IV SCH ×2 (21:00)
[2017-07-01] MEDS: NS IV SCH ×2 (21:00)
[2017-07-01 21:40] LABS: HEMATOCRIT 24.4 % (39.0-51.0); HEMOGLOBIN 8.4 GM/DL (13.0-17.0)
[2017-07-01] MEDS: FLUoxetine HCL 20 MG CAP PO SCH (22:30)
[2017-07-01] MEDS: MIRTAZAPINE 15 MG TAB PO SCH (22:30)
[2017-07-01] MEDS: INSULIN DETEMIR 100 UNITS/ML VIAL SQ SCH (22:30)
[2017-07-02] VITALS (13 sets, daily range): BP systolic 88–131; BP diastolic 49–69; PULSE 72–102; RESP 13–41; TEMP 97.8–98.6; O2SAT 94–100
[2017-07-02 01:19] LABS: HEMATOCRIT 23.5 % (39.0-51.0)
[2017-07-02] MEDS: INSULIN ASPART SUPPLEMENTAL SCALE SQ SCH ×5 (04:00→20:00)
[2017-07-02] MEDS: CHLORHEXIDINE GLUCONATE 2 % 1 PACK (2 CLOTHS) TOP SCH (04:00)
[2017-07-02] MEDS: PANTOPRAZOLE INJ 80 MG in SODIUM CHLORIDE 0.9% INJ 100 ML IV SCH (05:11)
[2017-07-02] MEDS: VALPROATE IV SCH ×2 (08:32)
[2017-07-02] MEDS: FERROUS SULFATE 325 MG (65 MG ELEMENTAL IRON) TAB PO SCH ×2 (08:32→17:41)
[2017-07-02] MEDS: ZIPRASIDONE HCL 80 MG CAP PO SCH ×2 (08:32→21:26)
[2017-07-02] MEDS: NS IV SCH ×2 (08:32)
[2017-07-02] MEDS: SODIUM CHLORIDE 0.9% FLUSH 10 ML FLUSH IV FLUSH SCH ×2 (08:35→21:24)
--- NOTE | 2017-07-02 09:58 | HHI.CCPN ---
Subjective Remarks/Hospital Course 56-year-old male with past medical history of end-stage renal disease on hemodialysis Friday, , Friday., Schizophrenia, GERD, esophagitis, type 2 diabetes mellitus, hypertension, aortic stenosis status post TAVR 02/07/17. He resides at [facility] and rehab. He was sent to [facility] emergency department after multiple episodes of coffee- ground emesis that appears to have started at around 20: 00 on 06/30. He states he has vomited 3-4 times. He has some cramping mid abdominal pain but no tenderness. He states his last bowel movement was yesterday and was brown. He is on aspirin and Plavix but no anticoagulation. Platelet count is normal. INR is 1.3. Hemoglobin is 5.4. He is tachycardic with heart rate in the 110s. Blood pressure robert is 96/50 with mean arterial pressure of 65. BUN is 192. He denies NSAID use. Does not appear to have history of varices or liver disease. He has received Zofran, octreotide 100 mcg IV, 2 L normal saline bolus , Protonix drip, Zofran 8 mg IV, Phenergan in the emergency department. Packed red blood cells 4 units have been typed and crossed. Blood bank indicates he has multiple antibodies SUBJ 07/02: Patient lying comfortably in bed. No further bleeding reported hemoglobin stable. EGD showed Class C Esophagitis, Alcira-Day tear and gastritis. Nephrology following for hemodialysis Objective Vital Signs Date Time Temp Pulse Resp B/P (MAP) Pulse Ox O2 Delivery O2 Flow Rate FiO2 07/02/17 04:00 98.2 94 18 131/61 (84) 100 07/02/17 00:13 21 07/01/17 15:30 Room Air 07/01/17 15:09 2 Intake and Output 07/02/17 07/02/17 07/02/17 07:59 15:59 23:59 Intake Total 340 ml Output Total 250 ml Balance 90 ml Result Diagram: 07/02/17 0043 07/01/17 0410 Objective Remarks GENERAL: Pale-appearing male who is lying in ICU bed. SKIN: Pale and cool to touch. scars and multiple lesions from what appears to be picking. HEAD: Atraumatic. Normocephalic. EYES: Pupils equal and round, 3 mm and reactive bilaterally. No scleral icterus. No injection or drainage. Conjunctive are pale ENT: No nasal bleeding or discharge. Mucous membranes pink and moist. NECK: Trachea midline. No JVD. CARDIOVASCULAR: S1-S2 normal no murmurs RESPIRATORY: Appears mildly tachypneic but there is no accessory muscle use. Clear to auscultation. GASTROINTESTINAL: Abdomen soft, mildly distended and tympanitic. No tenderness to palpation. No rebound or guarding. Bowel sounds present. MUSCULOSKELETAL: Extremities without clubbing, cyanosis, or edema. No obvious deformities. NEUROLOGICAL: Awake and alert, oriented. No obvious cranial nerve deficits. Motor grossly within normal limits. Normal speech. A/P Problem List: (1) GI bleeding ICD Code: K92.2 - Gastrointestinal hemorrhage, unspecified Status: Acute (2) Hypertension ICD Code: I10 - Hypertension Status: Acute (3) End stage renal failure on dialysis ICD Code: N18.6 - End stage renal failure on dialysis; Z99.2 - Dependence on renal dialysis Status: Chronic (4) Anemia ICD Code: D64.9 - Anemia Status: Chronic (5) DM (diabetes mellitus) ICD Code: E11.9 - DM (diabetes mellitus) Status: Chronic (6) Anxiety ICD Code: F41.9 - Anxiety Status: Chronic (7) Hyperlipidemia ICD Code: E78.5 - Hyperlipidemia Status: Chronic (8) Schizophrenia ICD Code: F20.9 - Schizophrenia Status: Chronic Assessment and Plan NEURO: Schizophrenia Anxiety Depakote 500 mg IV every 12 hours-change to PO Hydroxyzine Continue mirtazapine 30 mill grams p.o. nightly Continue Prozac 20 mill grams p.o. nightly Continue Geodon 80 mg p.o. twice daily RESP: Nasal cannula wean as tolerated CV: Aortic stenosis now status post TAVR 02/07/17 Hypertension Diabetes Chronic diastolic heart failure Hold aspirin and Plavix due to acute bleeding-restart when cleared by GI Holding metoprolol 12.5 mg p.o. twice daily for now. Resume today GI: Upper GI bleeding h/o gastritis or esophagitis Protonix drip, serial hemoglobin, gastroenterology following EGD done yesterday showed class C esophagitis, Alcira-Day tear, gastritis Change IV Protonix drip to scheduled every 12 FEN/RENAL: ESRD Monitor intake and output. Monitor electrolytes. Replace electrolytes as indicated Resume Renvela when taking p.o. Nephrology following for HD ID: Monitor for signs and symptoms of infection. HEME: Acute blood loss anemia Continue ferrous sulfate 325 mg p.o. twice daily Serial hemoglobin every 6 hours. DDAVP 0.4 mcg/kg due to uremia and bleeding. Transfuse as indicated for hemoglobin less than 7 ENDO: Diabetes mellitus Detemir 5 units subcu nightly Low-dose insulin sliding scale with bedside glucose every 4 hours PROPH: SCDs for DVT prophylaxis. Pharmacologic DVT prophylaxis contraindicated due to acute GI bleeding. Protonix drip-Change to 40 mg IV q12 ACCESS: Has 18-gauge and 20-gauge peripheral IV. Level 2 follow up Transfer to [facility]. [facility] to assume care in am William Cordero MD July 02, 2017 09:58
[2017-07-02] MEDS: PANTOPRAZOLE SODIUM 40 MG VIAL IV PUSH SCH ×2 (10:00→21:28)
[2017-07-02] MEDS ORDERED: PNEUMOCOCCAL POLYVALENT INJ 25 MCG/0.5 ML SYR IM ONE (10:00)
--- NOTE | 2017-07-02 11:18 | HHI.GIFU ---
Subjective Remarks Pt resting in bed. Per RN he has had no further vomiting. he does not like the food. (Sanjuana Amos) Objective Vitals I&O Vital Signs Date Time Temp Pulse Resp B/P (MAP) Pulse Ox O2 Delivery O2 Flow Rate FiO2 07/02/17 04:00 98.2 94 18 131/61 (84) 100 07/02/17 00:13 96 21 07/02/17 00:00 98.3 102 36 114/59 (77) 97 07/01/17 20:00 98.8 101 36 109/57 (74) 100 07/01/17 18:00 106 07/01/17 16:00 98.9 07/01/17 16:00 104 07/01/17 15:30 97.1 102 16 119/63 (81) 99 Room Air 07/01/17 15:15 102 12 119/63 (81) 99 07/01/17 15:09 97.1 103 16 110/56 (74) 99 Nasal Cannula 2 07/01/17 14:00 93 18 101/55 (70) 96 07/01/17 12:45 98.1 91 16 113/52 (72) 96 I/O 07/01/17 07/01/17 07/01/17 07/02/17 07/02/17 07/02/17 07:00 15:00 23:00 07:00 15:00 23:00 Intake Total 2060 ml 1860 ml 400 ml 340 ml Output Total 250 ml Balance 2060 ml 1860 ml 400 ml 90 ml Intake Oral 240 ml IV Total 2035 ml 100 ml 100 ml Packed Cells 1200 ml Blood Product IV Normal Saline Flush 25 ml 660 ml Other 300 ml Output Urine Total 250 ml # Bowel Movements 0 Laboratory Laboratory Tests Test 07/01/17 14:28 07/01/17 16:00 07/01/17 20:10 07/02/17 00:43 Hemoglobin 7.8 8.4 8.0 Hematocrit 22.6 24.4 23.5 Nasal Screen MRSA (PCR) MRSA DETECTED Physical Exam HEENT: PERRL; normocephalic; atraumatic; no jaundice CHEST: CTA CARDIAC: RRR ABDOMEN: Soft, nondistended, nontender; no hepatosplenomegaly; bowel sounds are present in all four quadrants. EXTREMITIES: No clubbing, cyanosis, or edema. SKIN: Normal; no rash; no jaundice. 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 hx gastritis, class d esophagitis seen on last EGD 10/2016. - anemia - normocytic. hgb 5.3 on admission. 2/ above. last colonoscopy 2016 and incomplete with poor prep. - isolated elevated ALP - unclear significance 07/02/17 s/p EGD revealing esophagitis grade C, joe pan tear, erythematous gastritis. No further bleeding, vomiting. HH relatively stable PLAN - soft diet - await bx - PPI - EGD 1 month - colonoscopy timing TBD pt seen by myself and Dr Rodriguez and this note is on his behalf (Sanjuana Amos) Physician Comments Seen and examined with DAVY, sleeping. No bleeding. Advance diet as tolerated. Monitor labs. (Love Rodriguez MD) Sanjuana Amos July 02, 2017 11:18 Love Rodriguez MD July 02, 2017 15:34
--- NOTE | 2017-07-02 11:43 | HHI.NPPN ---
Subjective General Problems: Anemia Renal Failure: Chronic, End Stage Renal Disease Interval History He is resting, is allowed to eat but has not attempted yet. Hemoglobin has improved, given 3 units yesterday. (Zahra Aguilar) Review of Systems Gastrointestinal Gastrointestinal: Nausea & Vomiting (Zahra Aguilar) Objective Data Data Vital Signs Date Time Temp Pulse Resp B/P (MAP) Pulse Ox O2 Delivery O2 Flow Rate FiO2 07/02/17 04:00 98.2 94 18 131/61 (84) 100 07/02/17 00:13 96 21 07/02/17 00:00 98.3 102 36 114/59 (77) 97 07/01/17 20:00 98.8 101 36 109/57 (74) 100 07/01/17 18:00 106 07/01/17 16:00 98.9 07/01/17 16:00 104 07/01/17 15:30 97.1 102 16 119/63 (81) 99 Room Air 07/01/17 15:15 102 12 119/63 (81) 99 07/01/17 15:09 97.1 103 16 110/56 (74) 99 Nasal Cannula 2 07/01/17 14:00 93 18 101/55 (70) 96 07/01/17 12:45 98.1 91 16 113/52 (72) 96 (Zahra Aguilar) -: 07/02/17 0043 07/01/17 0410 Physical Exam General Appearance: Well Developed, No Acute Distress, Comfortable, Pale, Sleeping, Malnourished (Zahra Aguilar) Eyes Eye Exam: Pupils Equal, Pupils Reactive (Zahra Aguilar) Throat Throat Exam: Oral Mucosa [place] & Moist (Zahar Aguilar) Pulmonary Resp Exam: Clear Bilaterally, Breath Sounds Equal (Zahra Aguilar) Cardiology CV Exam: Regular, Normal Sinus Rhythm (Zahra Aguilar) Gastrointestinal/Abdomen GI Exam: Soft, Non-Tender, Bowel Sounds Present (Zahra Aguilar) Musculoskeletal MS Exam: Joints Intact, Atrophy (Zahra Aguilar) Integumentary Skin Exam: Warm, Dry, Lesion(s) (Zahra Aguilar) Neurologic Neuro Exam: Alert, Oriented, Moving All Extremities (Zahra Aguilar) Psychiatric Psych Exam: Appropriate Responses (Zahra Aguilar) Assessment/Plan Discussed Condition With: Patient Assessment Summary: Anemia of CKD, Hypertension, End Stage Renal Disease Problem List: (1) End stage renal failure on dialysis ICD Codes: N18.6 - End stage renal failure on dialysis; Z99.2 - Dependence on renal dialysis Status: Chronic Plan: 2L fluid removal yesterday with dialysis Continue HD TTS Intermittently monitor electrolyte profile Avoid IVF administration AVF for HD use High protein diet ordered (2) Anemia ICD Codes: D64.9 - Anemia Status: Chronic Plan: Hb improved, given 3 units PRBC 5/8 iron profile pending Epogen with dialysis continues (3) DM (diabetes mellitus) ICD Codes: E11.9 - DM (diabetes mellitus) Status: Chronic Plan: Maintain glucose 140-180mg/dL while hospitalized (4) GI bleeding ICD Codes: K92.2 - Gastrointestinal hemorrhage, unspecified Status: Acute Plan: GI following, s/p EGD Has Alcira Day tear and esophagitis advance diet as tolerated On Protonix gtt Transfuse as needed (Zahra Aguilar) Plan patient was seen and examined. All the notes were reviewed. Agree with above assessment and plan. (Felix Andersen MD) Zahra Aguilar July 02, 2017 11:43 Felix Andersen MD July 02, 2017 20:57
[2017-07-02 13:00] LABS: BASOPHIL # 0.1 TH/MM3 (0-0.2); BASOPHIL % 0.9 % (0.0-2.0); EOSINOPHIL # 0.1 TH/MM3 (0-0.4); EOSINOPHIL % 1.9 % (0.0-4.0); HEMATOCRIT 21.1 % (39.0-51.0); HEMOGLOBIN 7.1 GM/DL (13.0-17.0); LYMPH % 17.9 % (9.0-44.0); LYMPHOCYTE # 1.3 TH/MM3 (1.0-4.8); MEAN CELL VOLUME 90.3 FL (80.0-100.0); MEAN CORPUSCULAR HEMOGLOBIN 30.2 PG (27.0-34.0); MEAN CORPUSCULAR HGB CONC 33.4 % (32.0-36.0); MEAN PLATELET VOLUME 9.2 FL (7.0-11.0); MONO % 7.4 % (0.0-8.0); MONOCYTE # 0.5 TH/MM3 (0-0.9); NEUT % 71.9 % (16.0-70.0); PLATELET COUNT 179 TH/MM3 (150-450); RED BLOOD COUNT 2.34 MIL/MM3 (4.50-5.90); RED CELL DISTRIBUTION WIDTH 15.7 % (11.6-17.2)
[2017-07-02 13:22] LABS: ALBUMIN 2.5 GM/DL (3.4-5.0); ALT (GPT) 15 U/L (12-78); AST (GOT) 9 U/L (15-37); BICARBONATE 32.9 MEQ/L (21.0-32.0); BLOOD UREA NITROGEN 88 MG/DL (7-18); CALCIUM 8.7 MG/DL (8.5-10.1); CHLORIDE 102 MEQ/L (98-107); CREATININE 6.25 MG/DL (0.60-1.30); GLOMERULAR FILTRATION RATE 9 ML/MIN (>89); GLUCOSE,RANDOM 83 MG/DL (74-106); MAGNESIUM 2.3 MG/DL (1.5-2.5); SODIUM (NA) 144 MEQ/L (136-145)
[2017-07-02 13:24] LABS: % SATURATION IRON PROFILE 36.3 % (20-50); ALKALINE PHOSPHATASE 196 U/L (45-117); IRON (FE) 101 MCG/DL (65-175); PHOSPHORUS 6.6 MG/DL (2.5-4.9); TOTAL BILIRUBIN ADULT 0.3 MG/DL (0.2-1.0); TOTAL IRON BINDING CAPACITY 279 MCG/DL (250-450); TOTAL PROTEIN 5.6 GM/DL (6.4-8.2)
[2017-07-02] MEDS: DIVALPROEX SODIUM E.R. 500 MG TAB PO SCH ×2 (13:38→21:25)
[2017-07-02] MEDS: CLOPIDOGREL 75 MG TAB PO SCH (13:39)
[2017-07-02] MEDS: ASPIRIN 81 MG CHEW TAB PO SCH (13:39)
[2017-07-02] MEDS: MIRTAZAPINE 15 MG TAB PO SCH (21:24)
[2017-07-02] MEDS: FLUoxetine HCL 20 MG CAP PO SCH (21:25)
[2017-07-02] MEDS: INSULIN DETEMIR 100 UNITS/ML VIAL SQ SCH (21:27)
[2017-07-02 22:16] LABS: HEMOGLOBIN 7.5 GM/DL (13.0-17.0)
[2017-07-03] VITALS (11 sets, daily range): BP systolic 111–139; BP diastolic 58–67; PULSE 86–104; RESP 16–20; TEMP 97.5–98.3; O2SAT 95–100
[2017-07-03] MEDS: INSULIN ASPART SUPPLEMENTAL SCALE SQ SCH ×6 (04:00→20:00)
[2017-07-03] MEDS: CHLORHEXIDINE GLUCONATE 2 % 1 PACK (2 CLOTHS) TOP SCH (04:00)
[2017-07-03] MEDS: DIVALPROEX SODIUM E.R. 500 MG TAB PO SCH ×2 (09:00→20:46)
[2017-07-03] MEDS: CLOPIDOGREL 75 MG TAB PO SCH (09:00)
[2017-07-03] MEDS: FERROUS SULFATE 325 MG (65 MG ELEMENTAL IRON) TAB PO SCH ×2 (09:00→20:47)
[2017-07-03] MEDS: ASPIRIN 81 MG CHEW TAB PO SCH (09:00)
[2017-07-03] MEDS: PANTOPRAZOLE SODIUM 40 MG VIAL IV PUSH SCH (09:01)
[2017-07-03] MEDS: SODIUM CHLORIDE 0.9% FLUSH 10 ML FLUSH IV FLUSH SCH ×2 (09:01→20:47)
[2017-07-03] MEDS: ZIPRASIDONE HCL 80 MG CAP PO SCH ×2 (09:05→20:46)
[2017-07-03] MEDS: CALCIUM ACETATE 667 MG CAP PO SCH ×3 (09:08→20:47)
[2017-07-03] MEDS ORDERED: EPOETIN ALFA 10,000 UNITS/ML VIAL IV PUSH PRN (10:00)
--- NOTE | 2017-07-03 10:32 | HHI.NPPN ---
Subjective General Problems: Anemia Renal Failure: Chronic, End Stage Renal Disease Interval History Repeat CBC in process. Due for dialysis. Wanting to go home. (Zahra Aguilar) Review of Systems Gastrointestinal Gastrointestinal: Nausea & Vomiting (Zahra Aguilar) Skin Skin: Lesions, Ulcers Skin Remarks self inflicted (Zahra Aguilar) Objective Data Data Vital Signs Date Time Temp Pulse Resp B/P (MAP) Pulse Ox O2 Delivery O2 Flow Rate FiO2 07/03/17 08:11 95 21 07/03/17 08:04 97.5 95 17 129/63 (85) 100 07/03/17 04:00 97.8 94 20 139/65 (89) 99 07/03/17 00:00 97.5 88 20 111/59 (76) 99 07/03/17 00:00 Room Air 07/02/17 20:00 98.6 96 20 124/66 (85) 100 07/02/17 20:00 Room Air 07/02/17 18:07 97.8 86 20 121/58 (79) 100 07/02/17 17:00 79 22 99/58 (72) 100 07/02/17 16:00 72 07/02/17 16:00 72 15 107/59 (75) 100 07/02/17 13:00 97 07/02/17 13:00 97 41 112/69 (83) 99 07/02/17 12:00 97.8 89 13 103/51 (68) 100 07/02/17 12:00 89 07/02/17 11:01 92 07/02/17 11:01 92 28 128/60 (82) 94 (Zahra Aguilar) -: 07/02/17 2150 07/02/17 1226 Physical Exam General Appearance: Well Developed, No Acute Distress, Comfortable, Pale, Malnourished (Zahra Aguilar) Eyes Eye Exam: Pupils Equal, Pupils Reactive (aZhra Aguilar) Throat Throat Exam: Oral Mucosa [place] & Moist (Zahra Aguilar) Pulmonary Resp Exam: Clear Bilaterally, Breath Sounds Equal (Zahra Aguilar) Cardiology CV Exam: Regular, Normal Sinus Rhythm (Zahra Aguilar) Gastrointestinal/Abdomen GI Exam: Soft, Non-Tender, Bowel Sounds Present (Zahra Aguilar) Musculoskeletal MS Exam: Joints Intact, Atrophy (Zahra Aguilar) Integumentary Skin Exam: Warm, Dry, Lesion(s) (Zahra Aguilar) Neurologic Neuro Exam: Alert, Oriented, Moving All Extremities (Zahra Aguilar) Psychiatric Psych Exam: Appropriate Responses (Zahra Aguilar) Assessment/Plan Discussed Condition With: Patient Assessment Summary: Anemia of CKD, Hypertension, End Stage Renal Disease Problem List: (1) End stage renal failure on dialysis ICD Codes: N18.6 - End stage renal failure on dialysis; Z99.2 - Dependence on renal dialysis Status: Chronic Plan: Continue HD TTS, due today Can give blood transfusion today during dialysis. Avoid IVF administration AVF for HD use High protein diet ordered Has outpatient arrangements for dialysis at [facility] (2) Anemia ICD Codes: D64.9 - Anemia Status: Chronic Plan: Hb improved, given 3 units PRBC / iron profile negative for deficiency Epogen with dialysis continues Transfuse one unit today prior to discharge (3) DM (diabetes mellitus) ICD Codes: E11.9 - DM (diabetes mellitus) Status: Chronic Plan: Maintain glucose 140-180mg/dL while hospitalized (4) GI bleeding ICD Codes: K92.2 - Gastrointestinal hemorrhage, unspecified Status: Acute Plan: Improved GI following, s/p EGD Has Alcira Day tear and esophagitis eating well On Protonix Transfuse as needed Plan cleared for discharge after dialysis pending no complications. (Zahra Aguilar) Plan patient was seen and examined. Agree with above assessment and plan. Suggested blood transfusion today at dialysis. Can be discharged after dialysis if stable. (Felix Andersen MD) Zahra Aguilar July 03, 2017 10:32 Felix Andersen MD July 03, 2017 14:35
[2017-07-03] MEDS ORDERED: SODIUM CHLOR 0.9% 250 ML INJ 250 ML IV ONE (11:00)
[2017-07-03 11:01] LABS: AUTOMATED NEUTROPHIL # 7.2 TH/MM3 (1.8-7.7); BASOPHIL # 0.1 TH/MM3 (0-0.2); BASOPHIL % 0.6 % (0.0-2.0); EOSINOPHIL # 0.4 TH/MM3 (0-0.4); EOSINOPHIL % 4.1 % (0.0-4.0); HEMOGLOBIN 7.4 GM/DL (13.0-17.0); LYMPHOCYTE # 1.1 TH/MM3 (1.0-4.8); MEAN CELL VOLUME 91.5 FL (80.0-100.0); MEAN CORPUSCULAR HEMOGLOBIN 30.7 PG (27.0-34.0); MEAN CORPUSCULAR HGB CONC 33.5 % (32.0-36.0); MEAN PLATELET VOLUME 8.9 FL (7.0-11.0); MONO % 6.4 % (0.0-8.0); MONOCYTE # 0.6 TH/MM3 (0-0.9); NEUT % 76.9 % (16.0-70.0); PLATELET COUNT 186 TH/MM3 (150-450); RED CELL DISTRIBUTION WIDTH 15.9 % (11.6-17.2); WHITE BLOOD COUNT 9.4 TH/MM3 (4.0-11.0)
--- NOTE | 2017-07-03 15:22 | HHI.GIFU ---
Subjective Remarks Pt resting in bed. Asking to have dialysis and go home. NO obvious GI bleeding. Nursing staff not aware of any bleeding. (Sanjuana Amos) Objective Vitals I&O Vital Signs Date Time Temp Pulse Resp B/P (MAP) Pulse Ox O2 Delivery O2 Flow Rate FiO2 07/03/17 12:20 98.3 104 17 128/58 (81) 100 07/03/17 08:11 95 21 07/03/17 08:04 97.5 95 17 129/63 (85) 100 07/03/17 04:00 97.8 94 20 139/65 (89) 99 07/03/17 00:00 97.5 88 20 111/59 (76) 99 07/03/17 00:00 Room Air 07/02/17 20:00 98.6 96 20 124/66 (85) 100 07/02/17 20:00 Room Air 07/02/17 18:07 97.8 86 20 121/58 (79) 100 07/02/17 17:00 79 22 99/58 (72) 100 07/02/17 16:00 72 07/02/17 16:00 72 15 107/59 (75) 100 I/O 07/02/17 07/02/17 07/02/17 07/03/17 07/03/17 07/03/17 07:00 15:00 23:00 07:00 15:00 23:00 Intake Total 340 ml 134 ml 680 ml 660 ml Output Total 250 ml 300 ml Balance 90 ml 134 ml 380 ml 660 ml Intake Oral 240 ml 680 ml 660 ml IV Total 100 ml 134 ml Output Urine Total 250 ml 300 ml # Voids 1 # Bowel Movements 0 Laboratory Laboratory Tests Test 07/02/17 21:50 07/03/17 10:39 Hemoglobin 7.5 7.4 Hematocrit 22.0 22.0 White Blood Count 9.4 Red Blood Count 2.40 Mean Corpuscular Volume 91.5 Mean Corpuscular Hemoglobin 30.7 Mean Corpuscular Hemoglobin Concent 33.5 Red Cell Distribution Width 15.9 Platelet Count 186 Mean Platelet Volume 8.9 Neutrophils (%) (Auto) 76.9 Lymphocytes (%) (Auto) 12.0 Monocytes (%) (Auto) 6.4 Eosinophils (%) (Auto) 4.1 Basophils (%) (Auto) 0.6 Neutrophils # (Auto) 7.2 Lymphocytes # (Auto) 1.1 Monocytes # (Auto) 0.6 Eosinophils # (Auto) 0.4 Basophils # (Auto) 0.1 CBC Comment DIFF FINAL Differential Comment Physical Exam HEENT: PERRL; normocephalic; atraumatic; no jaundice CHEST: CTA CARDIAC: RRR ABDOMEN: Soft, obese, nontender; no hepatosplenomegaly; bowel sounds are present in all four quadrants. SKIN: Normal; no rash; no jaundice. 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 hx gastritis, class d esophagitis seen on last EGD 10/2016. - anemia - normocytic. hgb 5.3 on admission. 03/28 above. last colonoscopy 2016 and incomplete with poor prep. - isolated elevated ALP - unclear significance 07/02/17 s/p EGD revealing esophagitis grade C, joe pan tear, erythematous gastritis. No further bleeding, vomiting. HH relatively stable 07/03/17 no further bleeding. HH stable. Pt eager to go home. bx still pending PLAN - RADHA - await bx - PPI - EGD 1 month pt seen by myself and Dr Rodriguez and this note is on his behalf (Sanjuana Amos) Physician Comments Seen and examined with DAVY, h/h low but stable. No evidence of bleeding. Biopsies -p. Repeat egd as recommended. PPI. Gi fu upon dc. thank you (Love Rodriguez MD) Sanjuana Amos July 03, 2017 15:22 Love Rodriguez MD July 03, 2017 15:43
[2017-07-03] MEDS ORDERED: PANT40TA3 PO (15:52)
--- NOTE | 2017-07-03 15:52 | HHI.DS ---
Discharge Summary Admission Date July 01, 2017 at 05:18 Discharge Date: July 03, 2017 Admitting Diagnosis Severe Anemia, GI bleeding (1) Schizophrenia ICD Code: F20.9 - Schizophrenia Diagnosis: Secondary Status: Chronic (2) Hyperlipidemia ICD Code: E78.5 - Hyperlipidemia Diagnosis: Secondary Status: Chronic (3) Anxiety ICD Code: F41.9 - Anxiety Diagnosis: Secondary Status: Chronic (4) GI bleeding ICD Code: K92.2 - Gastrointestinal hemorrhage, unspecified Diagnosis: Principal Status: Acute (5) Hypertension ICD Code: I10 - Hypertension Diagnosis: Secondary Status: Acute (6) End stage renal failure on dialysis ICD Code: N18.6 - End stage renal failure on dialysis; Z99.2 - Dependence on renal dialysis Diagnosis: Secondary Status: Chronic (7) Anemia ICD Code: D64.9 - Anemia Diagnosis: Principal Status: Chronic (8) DM (diabetes mellitus) ICD Code: E11.9 - DM (diabetes mellitus) Status: Chronic Procedures 07/02/17 s/p EGD revealing esophagitis grade C, alcira day tear, erythematous gastritis. Brief History - From Admission HPI from the admitting physician 56-year-old male with past medical history of end-stage renal disease on hemodialysis Friday, , Friday., Schizophrenia, GERD, esophagitis, type 2 diabetes mellitus, hypertension, aortic stenosis status post TAVR 02/07/17. He resides at [facility] re[facility]. He was sent to [facility] emergency department after multiple episodes of coffee- ground emesis that appears to have started at around 20: 00 on 06/30. He states he has vomited 3-4 times. He has some cramping mid abdominal pain but no tenderness. He states his last bowel movement was yesterday and was brown. He is on aspirin and Plavix but no anticoagulation. Platelet count is normal. INR is 1.3. Hemoglobin is 5.4. He is tachycardic with heart rate in the 110s. Blood pressure robert is 96/50 with mean arterial pressure of 65. BUN is 192. He denies NSAID use. Does not appear to have history of varices or liver disease. He has received Zofran, octreotide 100 mcg IV, 2 L normal saline bolus , Protonix drip, Zofran 8 mg IV, Phenergan in the emergency department. Packed red blood cells 4 units have been typed and crossed. Blood bank indicates he has multiple antibodies. CBC/BMP: 07/03/17 1039 07/02/17 1226 Significant Findings Laboratory Tests Test 07/01/17 04:10 07/01/17 14:28 07/01/17 16:00 07/01/17 20:10 White Blood Count 13.9 TH/MM3 (4.0-11.0) Red Blood Count 1.77 MIL/MM3 (4.50-5.90) Hemoglobin 5.4 GM/DL (13.0-17.0) 7.8 GM/DL (13.0-17.0) 8.4 GM/DL (13.0-17.0) Hematocrit 16.3 % (39.0-51.0) 22.6 % (39.0-51.0) 24.4 % (39.0-51.0) Neutrophils (%) (Auto) 85.0 % (16.0-70.0) Neutrophils # (Auto) 11.8 TH/MM3 (1.8-7.7) Prothrombin Time 12.7 SEC (9.8-11.6) Activated Partial Thromboplast Time 24.2 SEC (24.3-30.1) Blood Urea Nitrogen 192 MG/DL (7-18) Creatinine 8.03 MG/DL (0.60-1.30) Random Glucose 267 MG/DL (74-106) Total Protein 5.4 GM/DL (6.4-8.2) Albumin 2.4 GM/DL (3.4-5.0) Calcium Level 7.7 MG/DL (8.5-10.1) Alkaline Phosphatase 206 U/L (45-117) Aspartate Amino Transf (AST/SGOT) 7 U/L (15-37) Potassium Level 5.3 MEQ/L (3.5-5.1) Chloride Level 93 MEQ/L (98-107) Anion Gap 21 MEQ/L (5-15) Estimat Glomerular Filtration Rate 7 ML/MIN (>89) Test 07/02/17 00:43 07/02/17 12:26 07/02/17 21:50 07/03/17 10:39 Hemoglobin 8.0 GM/DL (13.0-17.0) 7.1 GM/DL (13.0-17.0) 7.5 GM/DL (13.0-17.0) 7.4 GM/DL (13.0-17.0) Hematocrit 23.5 % (39.0-51.0) 21.1 % (39.0-51.0) 22.0 % (39.0-51.0) 22.0 % (39.0-51.0) Red Blood Count 2.34 MIL/MM3 (4.50-5.90) 2.40 MIL/MM3 (4.50-5.90) Neutrophils (%) (Auto) 71.9 % (16.0-70.0) 76.9 % (16.0-70.0) Blood Urea Nitrogen 88 MG/DL (7-18) Creatinine 6.25 MG/DL (0.60-1.30) Total Protein 5.6 GM/DL (6.4-8.2) Albumin 2.5 GM/DL (3.4-5.0) Phosphorus Level 6.6 MG/DL (2.5-4.9) Alkaline Phosphatase 196 U/L (45-117) Aspartate Amino Transf (AST/SGOT) 9 U/L (15-37) Carbon Dioxide Level 32.9 MEQ/L (21.0-32.0) Estimat Glomerular Filtration Rate 9 ML/MIN (>89) Eosinophils (%) (Auto) 4.1 % (0.0-4.0) PE at Discharge GENERAL: Appear older than stated age. Deconditioned. CARDIOVASCULAR: Regular rate and rhythm without murmurs, gallops, or rubs. RESPIRATORY: Clear to auscultation. Breath sounds equal bilaterally. No wheezes , rales, or rhonchi. GASTROINTESTINAL: Abdomen soft, non-tender, nondistended. Normal active bowel sounds MUSCULOSKELETAL: Extremities without clubbing, cyanosis, or edema. NEURO: Alert & Oriented x4 to person, place, time, situation. Moves all ext x4 Pt update on day of discharge Patient reports he is feeling ok. Due for dialysis today.[facility]. He can be discharged later today after dialysis and PRBC transfusion. Hospital Course 56 Y/O male admitted and treated for the following: Upper GI bleeding h/o gastritis or esophagitis Protonix drip, serial hemoglobin, gastroenterology following EGD done yesterday showed class C esophagitis, Alcira-Day tear, gastritis S/P Protonix drip. Changed to oral Protonix Schizophrenia Anxiety Continue Depakote Hydroxyzine Continue mirtazapine 30 mill grams p.o. nightly Continue Prozac 20 mill grams p.o. nightly Continue Geodon 80 mg p.o. twice daily Aortic stenosis now status post TAVR 02/07/17 Hypertension Diabetes Chronic diastolic heart failure Initially held aspirin and Plavix due to acute bleeding- Medications were restarted after endoscopy Continue metoprolol 12.5 mg p.o. twice daily ESRD Monitor intake and output. Monitor electrolytes. Replace electrolytes as indicated Resume [facility] followed for HD. SHARRON Andersen on the day of discharge. Acute blood loss anemia Continue ferrous sulfate 325 mg p.o. twice daily Received total of 4 units of PRBC transfusion Diabetes mellitus Detemir 5 units subcu nightly Low-dose insulin sliding scale with bedside glucose every 4 hours Pt Condition on Discharge: Good Discharge Disposition: Discharge to SNF Discharge Time: > 30 minutes Discharge Instructions DIET: Follow Instructions for: Renal Failure Diet Activities you can perform: Regular-No Restrictions Follow up Referrals: Gastroenterology - 2 Weeks @ [facility] New Medications: Pantoprazole (Pantoprazole) 40 Mg Tab 40 MG PO Q12HR, #60 TAB Continued Medications: Acetaminophen (Tylenol) 325 Mg Tab 650 MG PO Q6H PRN for PAIN 1-10 AND/OR FEVER >101F, TAB 0 Refills Ascorbic Acid (Vitamin C) 250 Mg Chew 500 MG CHEW BID for Nutritional Supplement, #60 TAB 0 Refills Aspirin (Aspirin) 81 Mg Chew 81 MG CHEW DAILY, TAB 0 Refills B-Complex W/ C & Folic Acid (Aracely-Annelise) 1 Tab 1 TAB PO DAILY, TAB Calcium Carbonate (Antacid) (Tums) 500 Mg Chew 500 MG PO TIDPC PRN for HEARTBURN, TAB 0 Refills Cholecalciferol (Vitamin D-1000) 1,000 Unit Tab 2000 UNITS PO DAILY for Nutritional Supplement, #1 BOTTLE 0 Refills Clopidogrel (Plavix) 75 Mg Tab 75 MG PO DAILY for aortic stenosis for 30 Days, #30 TAB Divalproex ER (Depakote ER) 500 Mg Prema 500 MG PO BID for Control Seizures, #30 TAB 0 Refills Ferrous Sulfate (Ferrous Sulfate) 325 Mg (65 Mg Iron) Tablet 325 MG PO BIDPC for Nutritional Supplement, #60 TAB 0 Refills Fluoxetine (Prozac) 20 Mg Cap 20 MG PO HS, #30 CAP 0 Refills Hydroxyzine Pamoate (Vistaril) 25 Mg Cap 25 MG PO QID, CAP 0 Refills Insulin Detemir Inj (Levemir Inj) 1,000 unit/ 10 ML Vial 5 UNITS SQ HS for Blood Sugar Management, #30 VIAL 0 Refills Do not mix with any other Insulin. Metoprolol Tartrate (Metoprolol Tartrate) 25 Mg Tab 12.5 MG PO BID, #60 TAB 0 Refills Mirtazapine (Mirtazapine) 30 Mg Tab 30 MG PO HS for Depression Control, #30 TAB 0 Refills Polyethylene Glycol 3350 Powder (Miralax Powder) 17 Gm Powd 17 GM PO DAILY for Constipation, #1 CAN 0 Refills Mix and dissolve one measuring cap-ful (17 grams) in water or juice. Sevelamer Carbonate (Renvela) 800 Mg Tab 800 MG PO TIDAC for phosphate binder for 30 Days, TAB Ziprasidone (Geodon) 80 Mg Cap 80 MG PO BID, #60 CAP 0 Refills Take 1 capsule (80mg) with 20mg capsule for a total dose of 100mg Discontinued Medications: Lorazepam (Lorazepam) 0.5 Mg Tab 0.5 MG PO Q4H PRN for For mild anxiety / dyspnea, TAB 0 Refills Omeprazole (Omeprazole) 20 Mg Tab 20 MG PO DAILY, #30 TAB 0 Refills Katharina Parikh MD July 03, 2017 15:52
[2017-07-03] MEDS: MIRTAZAPINE 15 MG TAB PO SCH (20:46)
[2017-07-03] MEDS: FLUoxetine HCL 20 MG CAP PO SCH (20:46)
[2017-07-03] MEDS ORDERED: PANTOPRAZOLE SOD 40 MG DELAYED RELEASE TAB PO SCH (21:00)
== END 2017-07-03 21:04 | DRG 368 ==
LOC: NEPC 03:54 → NEDA 05:18 → HIME 15:45 → N04A 07-02 18:07
PROVIDERS: ADMIT Family Medicine; ATTEND Family Medicine
PROC: 30233N1 Transfusion of Nonautologous Red Blood Cells into Peripheral Vein, Percutaneous Approach (ICD-10-PCS; 2017-07-01)
PROC: 5A1D70Z Performance of Urinary Filtration, Intermittent, Less than 6 Hours Per Day (ICD-10-PCS; 2017-07-01)
PROC: 0DB58ZX Excision of Esophagus, Via Natural or Artificial Opening Endoscopic, Diagnostic (ICD-10-PCS; principal; 2017-07-01 14:34)
DX: K22.6 Gastro-esophageal laceration-hemorrhage syndrome (principal); N18.6 End stage renal disease; I13.2 Hypertensive heart and chronic kidney disease with heart failure and with stage 5 chronic kidney disease, or end stage renal disease; I95.9 Hypotension, unspecified; I50.32 Chronic diastolic (congestive) heart failure; D62 Acute posthemorrhagic anemia; E11.22 Type 2 diabetes mellitus with diabetic chronic kidney disease; F20.9 Schizophrenia, unspecified; F41.9 Anxiety disorder, unspecified; K20.8 Other esophagitis; B19.20 Unspecified viral hepatitis C without hepatic coma; D63.1 Anemia in chronic kidney disease; E86.1 Hypovolemia; E78.5 Hyperlipidemia, unspecified; R00.0 Tachycardia, unspecified; H91.90 Unspecified hearing loss, unspecified ear; Z96.649 Presence of unspecified artificial hip joint; Z99.2 Dependence on renal dialysis; Z79.82 Long term (current) use of aspirin; Z79.02 Long term (current) use of antithrombotics/antiplatelets; Z95.2 Presence of prosthetic heart valve; Z23 Encounter for immunization; Z80.0 Family history of malignant neoplasm of digestive organs; Z87.19 Personal history of other diseases of the digestive system
CPT/HCPCS: 36430; 80053; 82948; 83540; 83550; 83690; 83735; 84100; 85014; 85018; 85025; 85610; 85730; 86850; 86900; 86901; 86902; 86920; 86922; 87641; 88305; 90935; 93005; 96365; 96372; 96374; 96375; 96376; C9113; J1815; J2354; J2370; J2405; J2550; J2597; J7030; P9016; Q4081

== ENCOUNTER 2017-08-01 17:31 | Inpatient (IN) | payer MEDICARE, OTHER ==
[~2017-08-01] VITALS: Ht 182.9 cm; Wt 113.6 kg
[2017-08-01] VITALS (8 sets, daily range): BP systolic 85–149; BP diastolic 50–117; PULSE 111–130; RESP 16–28; TEMP 98.3–98.8; O2SAT 96–99
[~2017-08-01 17:31] MED LIST changes: -ASPI-516 CHEW; +ASPI-516 PO; -CINA30 PO; +FERR325T18 PO; -HYDR-3133 PO; -LORA0.5T PO; -NOVOLOGP2 SQ; -OMEP20TA93 PO; -VITA250C3 CHEW; +VITA250C3 PO; -ZOFR4TAB PO
[2017-08-01] MEDS ORDERED: SODIUM CHLOR 0.9% 1000 ML INJ 1,000 ML IV SCH (17:53)
--- NOTE | 2017-08-01 17:54 | PD ---
HPI Chief Complaint: GI Complaint Time Seen by Provider: 17:45 Travel History International Travel<30 days: No Contact w/Intl Traveler<30days: No Traveled to known affect area: No History of Present Illness HPI 56-year-old male with history of end-stage renal disease on hemodialysis Friday , , Friday., Schizophrenia, GERD, esophagitis, type 2 diabetes mellitus, hypertension, aortic stenosis status post TAVR in January of last year presents to emergency department from [facility] for evaluation after 3 episodes of coffee-ground emesis that occurred today. Patient states he then developed a severe epigastric pain. This has persisted throughout the afternoon. He reports nausea. He reports generalized weakness and not feeling well. Patient states that he does make urine. He has noticed no decrease in his urinary output or changes in his bowel movements. He denies any chest pain or tightness. He has no difficulty breathing. He denies any shortness of breath. Patient has no other symptoms to report at this time. Patient did have recent hospitalization in early June for severe anemia and GI bleed. He continues to take Plavix and aspirin. PFSH Past Medical History Anemia: Yes Arthritis: No Asthma: No Autoimmune Disease: No Blood Disorders: No Anxiety: Yes Depression: Yes Heart Rhythm Problems: No Cancer: Yes (SKIN CX ON FOREHEAD) Cardiovascular Problems: No High Cholesterol: Yes Chemotherapy: No Chest Pain: No Congestive Heart Failure: No COPD: No Cerebrovascular Accident: No Diabetes: Yes (DM2 ) Dialysis: Yes (//FRI) Diminished Hearing: Yes (DIMINISHED IN R EYE) Endocrine: Yes GERD: Yes Glaucoma: No Genitourinary: Yes Headaches: No Hepatitis: Yes (HEP C) Hiatal Hernia: No Heparin Induced Thrombocytopen: No Hypertension: Yes Immune Disorder: No Implanted Vascular Access Dvce: Yes Kidney Stones: No Musculoskeletal: No Neurologic: No Psychiatric: Yes Reproductive: No Respiratory: Yes (SOB) Integumentary: No Immunizations Current: Yes Migraines: No Myocardial Infarction: No Radiation Therapy: No Renal Failure: Yes Schizophrenia: Yes Seizures: No Sickle Cell Disease: No Sleep Apnea: No Thyroid Disease: No Ulcer: Yes Past Surgical History Abdominal Surgery: No AICD: No Appendectomy: No Arteriovenous Shunt: Yes (left upper arm) Cardiac Surgery: No Cholecystectomy: No Ear Surgery: No Endocrine Surgery: No Eye Surgery: Yes (CATARACTS) Genitourinary Surgery: No Gynecologic Surgery: No Insulin Pump: No Joint Replacement: No Neurologic Surgery: No Oral Surgery: No Pacemaker: No Thoracic Surgery: No Tonsillectomy: Yes Other Surgery: Yes (shunt to left arm / SKIN SURGERY TO FOREHEAD) Social History Alcohol Use: No Tobacco Use: No Substance Use: No Allergies-Medications (Allergen,Severity, Reaction): Coded Allergies: fexofenadine (Unverified Adverse Reaction, Unknown, PT DENIES ALLERGY, 08/01) Pt denies allergy Reported Meds & Prescriptions Reported Meds & Active Scripts Active Plavix (Clopidogrel Bisulfate) 75 Mg Tab 75 Mg PO DAILY 30 Days Levemir Inj (Insulin Detemir) 1,000 unit/ 10 ML Vial 5 Units SQ HS Do not mix with any other Insulin. Renvela (Sevelamer Carbonate) 800 Mg Tab 800 Mg PO TIDAC 30 Days Reported Zofran (Ondansetron HCl) 4 Mg Tab 4 Mg PO Q8HR PRN Sensipar (Cinacalcet) 60 Mg Tab 60 Mg PO HS Omeprazole 20 Mg Cap 20 Mg PO DAILY Novolog Inj (Insulin Aspart) 1,000 Unit/10 Ml Vial 2-10 Units SQ ACHS Sliding Scale as directed. If 150-199=2 units,200-249=4 units,250-299=6 units,300-349=8 units,350-399=10 units Ammonium Lactate (Lactic Acid (Ammonium Lactate)) 12% Lotn 1 Applic TOPICAL DAILY Geodon (Ziprasidone) 20 Mg Cap 100 Mg PO BID Take 1 capsule (20mg) with 80mg capsule for a total dose of 100mg Ativan (Lorazepam) 0.5 Mg Tab 0.5 Mg PO BID Vitamin D3 (Cholecalciferol) 2,000 Unit Cap 2,000 Units PO DAILY To be given after dialysis on dialysis days, and in am all other days Ferrous Sulfate 325 Mg (65 Mg Iron) Tablet 325 Mg PO BIDPC Vistaril (Hydroxyzine Pamoate) 25 Mg Cap 25 Mg PO QID Mirtazapine 30 Mg Tab 30 Mg PO HS Miralax Powder (Polyethylene Glycol 3350 Powder) 17 Gm Powd 17 Gm PO DAILY Mix and dissolve one measuring cap-ful (17 grams) in water or juice. Metoprolol Tartrate 25 Mg Tab 12.5 Mg PO Q12HR Vitamin C (Ascorbic Acid) 250 Mg Chew 500 Mg PO BID Aspirin 81 Mg Chew 81 Mg PO DAILY Prozac (Fluoxetine HCl) 20 Mg Cap 20 Mg PO HS Geodon (Ziprasidone) 80 Mg Cap 100 Mg PO BID Take 1 capsule (80mg) with 20mg capsule for a total dose of 100mg Aracely-Annelise (B-Complex W/ C & Folic Acid) 1 Tab 1 Tab PO DAILY Depakote ER (Divalproex Sodium) 500 Mg Prema 500 Mg PO BID Tums (Calcium Carbonate (Antacid)) 500 Mg Chew 500 Mg PO TIDPC PRN Tylenol (Acetaminophen) 325 Mg Tab 650 Mg PO Q6H PRN Do not exceed 3,000mg/24hrs Review of Systems Except as stated in HPI: all other systems reviewed are Neg Physical Exam Narrative GENERAL: Chronically ill appearing male patient, in no acute distress SKIN: Pallor. Focused skin assessment warm/dry. Multiple ecchymotic markings on the abdomen. Patient also has multiple scabbed lesions on the extremities and abdomen. HEAD: Atraumatic. Normocephalic. EYES: Pupils equal and round. No scleral icterus. No injection or drainage. ENT: No nasal bleeding or discharge. Mucous membranes pink and moist. NECK: Trachea midline. No JVD. CARDIOVASCULAR: Tachycardic rate. RESPIRATORY: No accessory muscle use. Diminished, likely due to girth, to auscultation. Breath sounds equal bilaterally. GASTROINTESTINAL: Abdomen rotund, soft, epigastric and left upper quadrant tenderness to palpation. Mild guarding. No rebound tenderness. MUSCULOSKELETAL: No obvious deformities. No clubbing. No cyanosis. No edema. NEUROLOGICAL: Awake and alert. No obvious cranial nerve deficits. Patient moves all extremities. Normal speech. Data Data Last Documented VS Vital Signs Date Time Temp Pulse Resp B/P (MAP) Pulse Ox O2 Delivery O2 Flow Rate FiO2 08/01/17 19:02 111 20 102/54 (70) 98 Room Air 08/01/17 17:43 98.4 Orders Orders Complete Blood Count With Diff (08/01/17 17:53) Comprehensive Metabolic Panel (08/01/17 17:53) Ammonia (08/01/17 17:53) Prothrombin Time / Inr (Pt) (08/01/17 17:53) Act Partial Throm Time (Ptt) (08/01/17 17:53) Urinalysis - C+S If Indicated (08/01/17 17:53) Type And Screen (08/01/17 17:53) Ecg Monitoring (08/01/17 17:53) Iv Access Insert/Monitor (08/01/17 17:53) Oximetry (08/01/17 17:53) Pantoprazole Inj (Protonix Inj) (08/01/17 18:00) Sodium Chlor 0.9% 1000 Ml Inj (Ns 1000 M (08/01/17 17:53) Sodium Chloride 0.9% Flush (Ns Flush) (08/01/17 18:00) Abdomen, Upright Only (08/01/17 ) Lactic Acid (08/01/17 18:52) Sodium Chloride 0.9... W/Pantoprazole In (08/01/17 19:11) Red Blood Cells (Rbc) (08/01/17 19:37) Blood Product Administration (08/01/17 19:37) Sodium Chlor 0.9% 250 Ml Inj (Ns 250 Ml (08/01/17 19:45) Chest, Pa & Lat (08/01/17 ) Labs Laboratory Tests Test 08/01/17 18:01 08/01/17 18:30 08/01/17 19:03 White Blood Count 15.4 TH/MM3 Red Blood Count 3.49 MIL/MM3 Hemoglobin 10.5 GM/DL Hematocrit 31.7 % Mean Corpuscular Volume 90.9 FL Mean Corpuscular Hemoglobin 30.1 PG Mean Corpuscular Hemoglobin Concent 33.1 % Red Cell Distribution Width 15.1 % Platelet Count 331 TH/MM3 Mean Platelet Volume 9.7 FL Neutrophils (%) (Auto) 84.9 % Lymphocytes (%) (Auto) 4.7 % Monocytes (%) (Auto) 10.0 % Eosinophils (%) (Auto) 0.0 % Basophils (%) (Auto) 0.4 % Neutrophils # (Auto) 13.0 TH/MM3 Lymphocytes # (Auto) 0.7 TH/MM3 Monocytes # (Auto) 1.5 TH/MM3 Eosinophils # (Auto) 0.0 TH/MM3 Basophils # (Auto) 0.1 TH/MM3 CBC Comment DIFF FINAL Differential Comment Prothrombin Time 13.4 SEC Prothromb Time International Ratio 1.3 RATIO Activated Partial Thromboplast Time 29.3 SEC Blood Urea Nitrogen 75 MG/DL Creatinine 7.10 MG/DL Random Glucose 197 MG/DL Total Protein 7.4 GM/DL Albumin 2.7 GM/DL Calcium Level 9.8 MG/DL Alkaline Phosphatase 262 U/L Aspartate Amino Transf (AST/SGOT) 16 U/L Alanine Aminotransferase (ALT/SGPT) 14 U/L Total Bilirubin 0.4 MG/DL Sodium Level 137 MEQ/L Potassium Level 4.7 MEQ/L Chloride Level 91 MEQ/L Carbon Dioxide Level 28.4 MEQ/L Anion Gap 18 MEQ/L Estimat Glomerular Filtration Rate 8 ML/MIN Ammonia 18 MCMOL/L Lactic Acid Level 2.9 mmol/L [facility] Medical Decision Making Medical Screen Exam Complete: Yes Emergency Medical Condition: Yes Medical Record Reviewed: Yes Differential Diagnosis GI bleed versus symptomatic anemia versus electrolyte abnormality versus esophageal varices versus gastritis versus hypo-coagulopathy Narrative Course 56-year-old male presents emergency department for evaluation after 3 episodes of coffee-ground emesis today at [facility]. Patient appears chronically ill. He has epigastric tenderness to palpation. He is tachycardic and moderately hypotensive. Patient is Hemoccult stool positive. Normal saline liter boluses started. I discussed the patient my attending physician is also assessed the patient. Laboratory Tests Test 08/01/17 18:01 08/01/17 18:30 08/01/17 19:03 White Blood Count 15.4 TH/MM3 Red Blood Count 3.49 MIL/MM3 Hemoglobin 10.5 GM/DL Hematocrit 31.7 % Mean Corpuscular Volume 90.9 FL Mean Corpuscular Hemoglobin 30.1 PG Mean Corpuscular Hemoglobin Concent 33.1 % Red Cell Distribution Width 15.1 % Platelet Count 331 TH/MM3 Mean Platelet Volume 9.7 FL Neutrophils (%) (Auto) 84.9 % Lymphocytes (%) (Auto) 4.7 % Monocytes (%) (Auto) 10.0 % Eosinophils (%) (Auto) 0.0 % Basophils (%) (Auto) 0.4 % Neutrophils # (Auto) 13.0 TH/MM3 Lymphocytes # (Auto) 0.7 TH/MM3 Monocytes # (Auto) 1.5 TH/MM3 Eosinophils # (Auto) 0.0 TH/MM3 Basophils # (Auto) 0.1 TH/MM3 CBC Comment DIFF FINAL Differential Comment Prothrombin Time 13.4 SEC Prothromb Time International Ratio 1.3 RATIO Activated Partial Thromboplast Time 29.3 SEC Blood Urea Nitrogen 75 MG/DL Creatinine 7.10 MG/DL Random Glucose 197 MG/DL Total Protein 7.4 GM/DL Albumin 2.7 GM/DL Calcium Level 9.8 MG/DL Alkaline Phosphatase 262 U/L Aspartate Amino Transf (AST/SGOT) 16 U/L Alanine Aminotransferase (ALT/SGPT) 14 U/L Total Bilirubin 0.4 MG/DL Sodium Level 137 MEQ/L Potassium Level 4.7 MEQ/L Chloride Level 91 MEQ/L Carbon Dioxide Level 28.4 MEQ/L Anion Gap 18 MEQ/L Estimat Glomerular Filtration Rate 8 ML/MIN Ammonia 18 MCMOL/L Lactic Acid Level 2.9 mmol/L Last Impressions Abdomen X-Ray 08/01/17 0000 Signed Impressions: CONCLUSION: Negative KUB. Pt's blood pressure continues to decrease and he is given another liter NS and PRBC are ordered. He will be admitted to the intensive care unit Diagnosis Primary Impression: GI bleed Qualified Codes: K92.2 - Gastrointestinal hemorrhage, unspecified Additional Impression: Hypotension Qualified Codes: I95.9 - Hypotension, unspecified Admitting Information Admitting Physician Requests: Admit Condition: Stable Bonita Gillette Aug 01, 2017 17:54
[2017-08-01] MEDS ORDERED: PANTOPRAZOLE SODIUM 40 MG VIAL IVP ONE (18:00)
[2017-08-01] MEDS ORDERED: SODIUM CHLORIDE 0.9% FLUSH 10 ML FLUSH IVF PRN (18:00)
[2017-08-01 18:26] LABS: BASOPHIL # 0.1 TH/MM3 (0-0.2); BASOPHIL % 0.4 % (0.0-2.0); HEMATOCRIT 31.7 % (39.0-51.0); HEMOGLOBIN 10.5 GM/DL (13.0-17.0); LYMPH % 4.7 % (9.0-44.0); LYMPHOCYTE # 0.7 TH/MM3 (1.0-4.8); MEAN CELL VOLUME 90.9 FL (80.0-100.0); MEAN CORPUSCULAR HEMOGLOBIN 30.1 PG (27.0-34.0); MEAN CORPUSCULAR HGB CONC 33.1 % (32.0-36.0); MEAN PLATELET VOLUME 9.7 FL (7.0-11.0); MONOCYTE # 1.5 TH/MM3 (0-0.9); NEUT % 84.9 % (16.0-70.0); PLATELET COUNT 331 TH/MM3 (150-450); RED BLOOD COUNT 3.49 MIL/MM3 (4.50-5.90); RED CELL DISTRIBUTION WIDTH 15.1 % (11.6-17.2); WHITE BLOOD COUNT 15.4 TH/MM3 (4.0-11.0)
[2017-08-01] MEDS ORDERED: LORA-392 PO (18:38)
[2017-08-01] MEDS ORDERED: SENS60TA PO (18:38)
[2017-08-01] MEDS ORDERED: OMEP20CA2 PO (18:38)
[2017-08-01] MEDS ORDERED: ZIPR20 PO (18:38)
[2017-08-01] MEDS ORDERED: NOVOLOGP2 SQ (18:38)
[2017-08-01] MEDS ORDERED: VITA2000 PO (18:38)
[2017-08-01] MEDS ORDERED: AMMO12LO TOPICAL (18:38)
[2017-08-01] MEDS ORDERED: ZOFR4TAB PO (18:38)
[2017-08-01 18:40] LABS: INTERNATIONAL NORMALIZED RATIO 1.3 RATIO; PROTHROMBIN TIME - PATIENT 13.4 SEC (9.8-11.6)
--- NOTE | 2017-08-01 18:50 | RADRPT ---
EXAM DATE: 08/01/2017 6:20 PM EDT AGE/SEX: 56 years / Male INDICATIONS: Abdominal pain and nausea. CLINICAL DATA: This is the patient's initial encounter. Patient reports that signs and symptoms have been present for 1 day and indicates a pain score of 4/10. MEDICAL/SURGICAL HISTORY: . Hypercholesterolemia. Hepatitis C. Hyperparathyroidism. GERD, HTN, Diabetes, Squamous cell Skin Cancer . Tonsillectomy. Adenoidectomy. AV shunt. Dialysis. COMPARISON: No prior exams available for comparison. FINDINGS: A single erect view of the abdomen demonstrates the lower lungs to be clear. No evidence of free intr aperitoneal gas. The visualized bowel loops are unremarkable. Air seen within nondistended segments o f bowel. There is a prosthetic graft material seen over the aortic valve region. CONCLUSION: Negative KUB. Electronically signed by: Gil Barroso MD 08/01/2017 6:49 PM EDT
[2017-08-01 18:52] LABS: ALBUMIN 2.7 GM/DL (3.4-5.0); AST (GOT) 16 U/L (15-37); BICARBONATE 28.4 MEQ/L (21.0-32.0); BLOOD UREA NITROGEN 75 MG/DL (7-18); CALCIUM 9.8 MG/DL (8.5-10.1); CHLORIDE 91 MEQ/L (98-107); GLOMERULAR FILTRATION RATE 8 ML/MIN (>89); GLUCOSE,RANDOM 197 MG/DL (74-106); SODIUM (NA) 137 MEQ/L (136-145)
[2017-08-01 18:53] LABS: ALT (GPT) 14 U/L (12-78)
[2017-08-01 18:56] LABS: ALKALINE PHOSPHATASE 262 U/L (45-117); TOTAL BILIRUBIN ADULT 0.4 MG/DL (0.2-1.0); TOTAL PROTEIN 7.4 GM/DL (6.4-8.2)
[2017-08-01] MEDS ORDERED: SODIUM CHLOR 0.9% 250 ML INJ 250 ML IV ONE (19:45)
[2017-08-01] MEDS: PANTOPRAZOLE INJ 80 MG in SODIUM CHLORIDE 0.9% INJ 100 ML IV SCH (20:16)
--- NOTE | 2017-08-01 20:19 | RADRPT ---
EXAM DATE: 08/01/2017 8:14 PM EDT AGE/SEX: 56 years / Male INDICATIONS: Shortness of breath CLINICAL DATA: This is the patient's initial encounter. Patient reports that signs and symptoms have been present for 1 day and indicates a pain score of 0/10. MEDICAL/SURGICAL HISTORY: . Hypercholesterolemia. Hypertension. Hepatitis C. Hyperparathyroidis m. GERD. Chest and abdominal pain. ESRD. Diabetes. Anemia. Squamous skin cancer. . Tonsillectomy. Ad enoidectomy. AV shunt. Dialysis. Skin cancer removal from forehead. COMPARISON: [facility] [place], [facility]ST PA & LAT, 01/03/2017. . FINDINGS: The heart size is enlarged. There is a graft/prostatic valve seen over the aortic valve region. The l ungs are stable diffuse interstitial prominence. The costophrenic angles are clear. CONCLUSION: Suspected adjacent placed aortic valve replacement. Diffuse interstitial markings likely related to edema. Electronically signed by: Gil Barroso MD 08/01/2017 8:17 PM EDT
[2017-08-01] MEDS ORDERED: ONDANSETRON ODT 4 MG TAB PO ONE (20:30)
[2017-08-01] MEDS: SODIUM CHLOR 0.9% 1000 ML INJ 1,000 ML IV SCH (21:21)
--- NOTE | 2017-08-01 21:25 | HHI.HP ---
HPI Service Critical Care Medicine Primary Care Physician Unknown Admission Diagnosis GI bleed; hypotension Diagnosis: Travel History International Travel<30 Days: No Contact w/Intl Traveler <30 Da: No Traveled to Known Affected Are: No History of Present Illness 56-year-old male with history of end-stage renal disease on hemodialysis Friday , , Friday, Schizophrenia, GERD, esophagitis, type 2 diabetes mellitus, hypertension, aortic stenosis status post TAVR in January of last year presents from [facility] and rehab for evaluation of 3 episodes of coffee-ground emesis that occurred today. Patient states he then developed a severe epigastric pain. This has persisted throughout the afternoon. He reports nausea. He reports generalized weakness and not feeling well. He indicates that he is not making any urine.. He denies any chest pain or tightness. He has no difficulty breathing. He denies any shortness of breath. He was recently hospitalized in early June for severe anemia and GI bleed. He continues to take Plavix and aspirin. Review of Systems Constitutional: COMPLAINS OF: Diaphoretic episodes, DENIES: Fatigue, Fever, Weight gain, Weight loss, Chills, Dizziness, Change in appetite, Night Sweats Endocrine: DENIES: Heat/cold intolerance, Polydipsia, Polyuria, Polyphagia Eyes: DENIES: Blurred vision, Diplopia, Eye inflammation, Eye pain, Vision loss , Photosensitivity, Double Vision Ears, nose, mouth, throat: DENIES: Tinnitus, Hearing loss, Vertigo, Nasal discharge, Oral lesions, Throat pain, Hoarseness, Ear Pain, Running Nose, Epistaxis, Sinus Pain, Toothache, Odynophagia Respiratory: DENIES: Apneas, Cough, Snoring, Wheezing, Hemoptysis, Sputum production, Shortness of breath Cardiovascular: DENIES: Chest pain, Palpitations, Syncope, Dyspnea on Exertion , PND, Lower Extremity Edema, Orthopnea, Claudication Gastrointestinal: COMPLAINS OF: Abdominal pain, Nausea, Vomiting, DENIES: Black stools, Bloody stools, Constipation, Diarrhea, Difficulty Swallowing, Anorexia Genitourinary: DENIES: Sexual dysfunction, Urinary frequency, Urinary incontinence, Urgency, Hematuria, Dysuria, Nocturia, Penile Discharge, Testicular Pain, Testicular Swelling Musculoskeletal: DENIES: Joint pain, Muscle aches, Stiffness, Joint Swelling, Back pain, Neck pain Integumentary: DENIES: Abnormal pigmentation, Nail changes, Pruritus, Rash Hematologic/lymphatic: DENIES: Bruising, Lymphadenopathy Immunologic/allergic: DENIES: Eczema, Urticaria Neurologic: DENIES: Abnormal gait, Headache, Localized weakness, Paresthesias, Seizures, Speech Problems, Tremor, Poor Balance Psychiatric: DENIES: Anxiety, Confusion, Mood changes, Depression, Hallucinations, Agitation, Suicidal Ideation, Homicidal Ideation, Delusions Past Family Social History Allergies: Coded Allergies: fexofenadine (Unverified Adverse Reaction, Unknown, PT DENIES ALLERGY, 08/01) Pt denies allergy Past Medical History End-stage renal disease on hemodialysis Friday//Friday Hypertension Schizophrenia Diabetes Chronic diastolic heart failure History of aortic stenosis now status post TAVR 02/07/17 Hiatal hernia Esophagitis Gastritis Past Surgical History Cardiac catheterization Dr. Dewey Hip replacement TAVR 02/07/[address] Dr[address] dewey Colonoscopy 01/20/[address] Hollins EGD 05/10/16 LA class B esophagitis, gastritis, duodenitis Reported Medications Reported Meds & Active Scripts Active Plavix (Clopidogrel Bisulfate) 75 Mg Tab 75 Mg PO DAILY 30 Days Levemir Inj (Insulin Detemir) 1,000 unit/ 10 ML Vial 5 Units SQ HS Do not mix with any other Insulin. Renvela (Sevelamer Carbonate) 800 Mg Tab 800 Mg PO TIDAC 30 Days Reported Zofran (Ondansetron HCl) 4 Mg Tab 4 Mg PO Q8HR PRN Sensipar (Cinacalcet) 60 Mg Tab 60 Mg PO HS Omeprazole 20 Mg Cap 20 Mg PO DAILY Novolog Inj (Insulin Aspart) 1,000 Unit/10 Ml Vial 2-10 Units SQ ACHS Sliding Scale as directed. If 150-199=2 units,200-249=4 units,250-299=6 units,300-349=8 units,350-399=10 units Ammonium Lactate (Lactic Acid (Ammonium Lactate)) 12% Lotn 1 Applic TOPICAL DAILY Geodon (Ziprasidone) 20 Mg Cap 100 Mg PO BID Take 1 capsule (20mg) with 80mg capsule for a total dose of 100mg Ativan (Lorazepam) 0.5 Mg Tab 0.5 Mg PO BID Vitamin D3 (Cholecalciferol) 2,000 Unit Cap 2,000 Units PO DAILY To be given after dialysis on dialysis days, and in am all other days Ferrous Sulfate 325 Mg (65 Mg Iron) Tablet 325 Mg PO BIDPC Vistaril (Hydroxyzine Pamoate) 25 Mg Cap 25 Mg PO QID Mirtazapine 30 Mg Tab 30 Mg PO HS Miralax Powder (Polyethylene Glycol 3350 Powder) 17 Gm Powd 17 Gm PO DAILY Mix and dissolve one measuring cap-ful (17 grams) in water or juice. Metoprolol Tartrate 25 Mg Tab 12.5 Mg PO Q12HR Vitamin C (Ascorbic Acid) 250 Mg Chew 500 Mg PO BID Aspirin 81 Mg Chew 81 Mg PO DAILY Prozac (Fluoxetine HCl) 20 Mg Cap 20 Mg PO HS Geodon (Ziprasidone) 80 Mg Cap 100 Mg PO BID Take 1 capsule (80mg) with 20mg capsule for a total dose of 100mg Aracely-Annelise (B-Complex W/ C & Folic Acid) 1 Tab 1 Tab PO DAILY Depakote ER (Divalproex Sodium) 500 Mg Prema 500 Mg PO BID Tums (Calcium Carbonate (Antacid)) 500 Mg Chew 500 Mg PO TIDPC PRN Tylenol (Acetaminophen) 325 Mg Tab 650 Mg PO Q6H PRN Do not exceed 3,000mg/24hrs Active Ordered Medications Current Medications Medications (Trade) Dose Ordered Sig/Diane Route PRN Reason Start Time Stop Time Status Last Admin Dose Admin Pantoprazole Sodium 80 mg/ Sodium Chloride 100 ml @ 10 mls/hr Q10H IV 08/01/17 19:11 08/01/17 20:16 Sodium Chloride 250 ml @ 15 mls/hr ONCE ONCE IV 08/01/17 19:45 08/02/17 12:24 08/01/17 21:10 Cholecalciferol (Vitamin D3) 2,000 units DAILY PO 08/02/17 09:00 Divalproex Sodium (Depakote Er) 500 mg BID PO 08/02/17 09:00 Ferrous Sulfate (Ferrous Sulfate) 325 mg BIDPC PO 08/02/17 09:00 Fluoxetine HCl (PROzac) 20 mg HS PO 08/02/17 21:00 Hydroxyzine Pamoate (Vistaril) 25 mg QID PO 08/02/17 09:00 Lactic Acid (Lac-Hydrin 12% Lotion) 1 applic DAILY TOPICAL 08/02/17 09:00 Lorazepam (Ativan) 0.5 mg BID PO 08/02/17 09:00 Mirtazapine (Remeron) 30 mg HS PO 08/02/17 21:00 Sevelamer Carbonate (Renvela) 800 mg TIDAC PO 08/02/17 08:00 Ziprasidone (Geodon) 100 mg BID PO 08/02/17 09:00 Ascorbic Acid (Vitamin C) 500 mg BID PO 08/02/17 09:00 Vitamin B Complex/ Vitamin C (Allbee C) 1 tab DAILY PO 08/02/17 09:00 Cinacalcet (Sensipar) 60 mg HS PO 08/02/17 21:00 Ondansetron HCl (Zofran Odt) 4 mg Q8HR PRN PO NAUSEA OR VOMITING 08/01/17 21:30 08/02/17 00:11 Sodium Chloride 1,000 ml @ 84 mls/hr [id number] IV 08/01/17 21:21 Sodium Chloride (NS Flush) 2 ml UNSCH PRN IV FLUSH FLUSH AFTER USING IV ACCESS 08/01/17 21:30 Sodium Chloride (NS Flush) 2 ml BID IV FLUSH 08/02/17 09:00 Acetaminophen (Tylenol) 650 mg Q6H PRN PO PAIN 1-5 AND/OR FEVER >101F 08/01/17 21:30 Morphine Sulfate (Morphine Inj) 2 mg Q2H PRN IV PUSH PAIN SCALE 6 TO 10 08/01/17 21:30 08/02/17 01:59 Pantoprazole Sodium (Protonix Inj) 40 mg Q12H IV PUSH 08/01/17 21:30 Midazolam HCl (Versed Inj) 2 mg Q1H PRN IV PUSH SEDATION 08/01/17 21:30 08/02/17 02:52 Metoclopramide HCl (Reglan Inj) 5 mg Q6H PRN IV PUSH NAUSEA OR VOMITING 08/01/17 21:30 08/01/17 23:34 Temazepam (Restoril) 15 mg HS PRN PO INSOMNIA 08/01/17 21:30 Albuterol/ Ipratropium (Duoneb Neb) 1 ampule Q2HR NEB PRN INH WHEEZING 08/01/17 21:30 Miscellaneous Information ([facility]) 1 [id number] XX 08/01/17 21:30 Chlorhexidine Gluconate (Chlorhexidine 2% Cloth) 3 pack Taper DAILY@04 TOP 08/02/17 04:00 07/29/18 03:59 Chlorhexidine Gluconate (Chlorhexidine 2% Cloth) 3 pack UNSCH PRN TOP HYGIENIC CARE 08/01/17 21:30 Senna/Docusate Sodium (Berta-Colace) 1 tab BID PO 08/02/17 09:00 Magnesium Hydroxide (Milk Of Magnesia Liq) 30 ml Q12H PRN PO Mild constipation 08/01/17 21:30 Sennosides (Senokot) 17.2 mg Q12H PRN PO Moderate constipation 08/01/17 21:30 Bisacodyl (Dulcolax Supp) 10 mg DAILY PRN RECTAL SEVERE CONSITIPATION/ IF NPO 08/01/17 21:30 Lactulose (Lactulose Liq) 30 ml DAILY PRN PO SEVERE CONSITIPATION/ IF PO 08/01/17 21:30 Dextrose (D50w (Vial) Inj) 50 ml UNSCH PRN IV PUSH HYPOGLYCEMIA-SEE COMMENTS 08/01/17 21:30 Glucagon (Glucagon Inj) 1 mg UNSCH PRN OTHER HYPOGLYCEMIA-SEE COMMENTS 08/01/17 21:30 Insulin Aspart (NovoLOG SUPPLEMENTAL SCALE) 1 ACHS SLIDING SCALE SQ 08/02/17 08:00 Folic Acid (Folate) 1 mg DAILY PO 08/02/17 09:00 Family History Father of colon cancer at age 85 Mother of breast cancer in her 30s Social History He states he is a lifetime non-smoker States he was never a heavy drinker and has not had an alcoholic beverage since he was in college No illicit drug use He states he has been a residential resident for 7 years due to schizophrenia 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 Focused skin assessment warm/dry. Multiple ecchymotic markings on the abdomen. Patient also has multiple scabbed lesions on the extremities and abdomen. HEAD: Atraumatic. Normocephalic. EYES: Pupils equal and round. No scleral icterus. No injection or drainage. ENT: No nasal bleeding or discharge. Mucous membranes pink and moist. NECK: Trachea midline. No JVD. CARDIOVASCULAR: Tachycardic rate. RESPIRATORY: No accessory muscle use. Diminished, likely due to girth, to auscultation. Breath sounds equal bilaterally. GASTROINTESTINAL: Abdomen rotund, soft, epigastric and left upper quadrant tenderness to palpation. Mild guarding. No rebound tenderness. MUSCULOSKELETAL: No obvious deformities. No clubbing. No cyanosis. No edema. NEUROLOGICAL: Awake and alert. No obvious cranial nerve deficits. Patient moves all extremities. Normal speech. Laboratory Laboratory Tests Test 08/01/17 18:01 08/01/17 18:30 08/01/17 19:03 White Blood Count 15.4 Red Blood Count 3.49 Hemoglobin 10.5 Hematocrit 31.7 Mean Corpuscular Volume 90.9 Mean Corpuscular Hemoglobin 30.1 Mean Corpuscular Hemoglobin Concent 33.1 Red Cell Distribution Width 15.1 Platelet Count 331 Mean Platelet Volume 9.7 Neutrophils (%) (Auto) 84.9 Lymphocytes (%) (Auto) 4.7 Monocytes (%) (Auto) 10.0 Eosinophils (%) (Auto) 0.0 Basophils (%) (Auto) 0.4 Neutrophils # (Auto) 13.0 Lymphocytes # (Auto) 0.7 Monocytes # (Auto) 1.5 Eosinophils # (Auto) 0.0 Basophils # (Auto) 0.1 CBC Comment DIFF FINAL Differential Comment Prothrombin Time 13.4 Prothromb Time International Ratio 1.3 Activated Partial Thromboplast Time 29.3 Blood Urea Nitrogen 75 Creatinine 7.10 Random Glucose 197 Total Protein 7.4 Albumin 2.7 Calcium Level 9.8 Alkaline Phosphatase 262 Aspartate Amino Transf (AST/SGOT) 16 Alanine Aminotransferase (ALT/SGPT) 14 Total Bilirubin 0.4 Sodium Level 137 Potassium Level 4.7 Chloride Level 91 Carbon Dioxide Level 28.4 Anion Gap 18 Estimat Glomerular Filtration Rate 8 Ammonia 18 Lactic Acid Level 2.9 Result Diagram: 08/01/17180008/01/171800 Caprinida VTE Risk Assessment Fatoumata VTE Risk Assessment: Mod/High Risk (score >= 2) VTE Pharm Contraindication: Hemorrhage Tobirini Risk Assessment Model Point Value = 1 Point Value = 2 Point Value = 3 Point Value = 5 Age 41-60 Minor surgery BMI > 25 kg/m2 Swollen legs Varicose veins or History of unexplained or recurrent spontaneous Oral contraceptives or hormone replacement Sepsis (< 1 month) Serious lung disease, including pneumonia (< 1 month) Abnormal pulmonary function Acute myocardial infarction Congestive heart failure (< 1 month) History of inflammatory bowel disease Medical patient at bed rest Age 61-74 Arthroscopic surgery Major open surgery (> 45 min) Laparoscopic surgery (> 45 min) Malignancy Confined to bed (> 72 hours) Immobilizing plaster cast Central venous access Age >= 75 History of VTE Family history of VTE Factor V Leiden Prothrombin [id number] Lupus anticoagulant Anticardiolipin antibodies Elevated serum homocysteine Heparin-induced thrombocytopenia Other congenital or acquired thrombophilia Stroke (< 1 month) Elective arthroplasty Hip, pelvis, or leg fracture Acute spinal cord injury (< 1 month) Prophylaxis Regimen Total Risk Factor Score Risk Level Prophylaxis Regimen 0-1 Low Early ambulation 2 Moderate Order ONE of the following: *Sequential Compression Device (SCD) *Heparin 5000 units SQ BID 3-4 Higher Order ONE of the following medications: *Heparin 5000 units SQ TID *Enoxaparin/Lovenox 40 mg SQ daily (WT < 150 kg, CrCl > 30 mL/min) *Enoxaparin/Lovenox 30 mg SQ daily (WT < 150 kg, CrCl > 10-29 mL/min) *Enoxaparin/Lovenox 30 mg SQ BID (WT < 150 kg, CrCl > 30 mL/min) AND/OR *Sequential Compression Device (SCD) 5 or more Highest Order ONE of the following medications: *Heparin 5000 units SQ TID (Preferred with Epidurals) *Enoxaparin/Lovenox 40 mg SQ daily (WT < 150 kg, CrCl > 30 mL/min) *Enoxaparin/Lovenox 30 mg SQ daily (WT < 150 kg, CrCl > 10-29 mL/min) *Enoxaparin/Lovenox 30 mg SQ BID (WT < 150 kg, CrCl > 30 mL/min) AND *Sequential Compression Device (SCD) Assessment and Plan Assessment and Plan Hematemesis -Protonix IV -N.p.o. -Hold aspirin and Plavix -STAT gastroenterology consultation -Consider DDAVP for platelet dysfunction and uremic syndrome if continues to bleed End-stage renal disease -hemodialysis Friday//Friday -Nephrology consultation Hypertension -Resume metoprolol and lisinopril when hemodynamically stable and GI bleed controlled Schizophrenia -Geodon Diabetes -Hold long-acting insulins while n.p.o. -Insulin sliding scale Chronic diastolic heart failure -Blood pressure control -Resume lisinopril when GI bleed controlled and patient hemodynamically stable DVT GI prophylaxis -Richard's and SCDs -No pharmacological DVT prophylaxis due to GI bleed -Protonix IV Critical Care: The total critical care time was 35 minutes. Time to perform other separately billable procedures was not included in the critical care time. Chriss Wright MD Aug 01, 2017 9:25 pm
[2017-08-01] MEDS ORDERED: LACTULOSE SYRUP 20 GM/30 ML CUP PO PRN (21:30)
[2017-08-01] MEDS ORDERED: MAGNESIUM HYDROXIDE SUSP 30 ML CUP PO PRN (21:30)
[2017-08-01] MEDS ORDERED: METOCLOPRAMIDE HCL 10 MG/2 ML VIAL IV PUSH PRN (21:30)
[2017-08-01] MEDS ORDERED: PANTOPRAZOLE SODIUM 40 MG VIAL IV PUSH SCH (21:30)
[2017-08-01] MEDS ORDERED: NURSING INFORMATION XX SCH (21:30)
[2017-08-01] MEDS ORDERED: CHLORHEXIDINE GLUCONATE 2 % 1 PACK (2 CLOTHS) TOP PRN (21:30)
[2017-08-01] MEDS ORDERED: SENNOSIDES 8.6 MG TAB PO PRN (21:30)
[2017-08-01] MEDS ORDERED: BISACODYL 10 MG SUPP RECTAL PRN (21:30)
[2017-08-01] MEDS ORDERED: ONDANSETRON ODT 4 MG TAB PO PRN (21:30)
[2017-08-01] MEDS ORDERED: TEMAZEPAM 15 MG CAP PO PRN (21:30)
[2017-08-01] MEDS ORDERED: ACETAMINOPHEN 325 MG TAB PO PRN (21:30)
[2017-08-01] MEDS ORDERED: DEXTROSE 50% IN WATER 50 ML VIAL(D50) IV PUSH PRN (21:30)
[2017-08-01] MEDS ORDERED: RESP: ALBUTEROL 2.5 MG/IPRATROPIUM 0.5 MG NEB (PRN) INH (21:30)
[2017-08-01] MEDS ORDERED: GLUCAGON 1 MG/ML VIAL OTHER PRN (21:30)
[2017-08-01] MEDS ORDERED: SODIUM CHLORIDE 0.9% FLUSH 10 ML FLUSH IV FLUSH PRN (21:30)
[2017-08-01] MEDS ORDERED: hydrOXYzine PAMOATE 25 MG CAP PO SCH (22:45)
[2017-08-01] MEDS ORDERED: DIVALPROEX SODIUM E.R. 500 MG TAB PO SCH (22:45)
[2017-08-01] MEDS ORDERED: FLUoxetine HCL 20 MG CAP PO SCH (22:45)
[2017-08-01] MEDS ORDERED: LORazepam 0.5 MG TAB PO SCH (22:45)
[2017-08-01] MEDS ORDERED: ZIPRASIDONE HCL 20 MG CAP PO SCH ×2 (22:45→23:15)
[2017-08-01] MEDS ORDERED: MIRTAZAPINE 15 MG TAB PO SCH (23:00)
[2017-08-01] MEDS ORDERED: CINACALCET HYDROCHLORIDE 30 MG TAB PO SCH (23:00)
[2017-08-01] MEDS: MORPHINE SULFATE 4 MG/ML INJ IV PUSH PRN (23:34)
[2017-08-02] VITALS (41 sets, daily range): BP systolic 76–155; BP diastolic 39–101; PULSE 119–145; RESP 16–38; TEMP 98.3–99; O2SAT 91–100
[2017-08-02] MEDS: MIDAZOLAM HCL 2 MG/2 ML VIAL IV PUSH PRN ×3 (01:33→04:31)
[2017-08-02] MEDS: MORPHINE SULFATE 4 MG/ML INJ IV PUSH PRN ×2 (01:59→04:31)
[2017-08-02] MEDS: CHLORHEXIDINE GLUCONATE 2 % 1 PACK (2 CLOTHS) TOP SCH (02:41)
[2017-08-02 03:54] LABS: AUTOMATED NEUTROPHIL # 3.2 TH/MM3 (1.8-7.7); BASOPHIL % 0.2 % (0.0-2.0); EOSINOPHIL % 0.1 % (0.0-4.0); HEMATOCRIT 35.8 % (39.0-51.0); HEMOGLOBIN 11.9 GM/DL (13.0-17.0); INTERNATIONAL NORMALIZED RATIO 1.6 RATIO; LYMPH % 7.5 % (9.0-44.0); LYMPHOCYTE # 0.3 TH/MM3 (1.0-4.8); MEAN CELL VOLUME 89.8 FL (80.0-100.0); MEAN CORPUSCULAR HEMOGLOBIN 29.8 PG (27.0-34.0); MEAN CORPUSCULAR HGB CONC 33.1 % (32.0-36.0); MEAN PLATELET VOLUME 9.6 FL (7.0-11.0); MONO % 12.2 % (0.0-8.0); MONOCYTE # 0.5 TH/MM3 (0-0.9); PLATELET COUNT 293 TH/MM3 (150-450); PROTHROMBIN TIME - PATIENT 15.8 SEC (9.8-11.6); RED BLOOD COUNT 3.98 MIL/MM3 (4.50-5.90)
[2017-08-02] MEDS: PANTOPRAZOLE INJ 80 MG in SODIUM CHLORIDE 0.9% INJ 100 ML IV SCH ×2 (04:34→19:17)
[2017-08-02 04:43] LABS: ALBUMIN 2.5 GM/DL (3.4-5.0); ALKALINE PHOSPHATASE 233 U/L (45-117); ALT (GPT) 108 U/L (12-78); AST (GOT) 136 U/L (15-37); BICARBONATE 22.5 MEQ/L (21.0-32.0); BLOOD UREA NITROGEN 84 MG/DL (7-18); CALCIUM 9.9 MG/DL (8.5-10.1); CHLORIDE 94 MEQ/L (98-107); CREATININE 7.93 MG/DL (0.60-1.30); GLOMERULAR FILTRATION RATE 7 ML/MIN (>89); GLUCOSE,RANDOM 141 MG/DL (74-106); MAGNESIUM 2.1 MG/DL (1.5-2.5); PHOSPHORUS 7.6 MG/DL (2.5-4.9); SODIUM (NA) 141 MEQ/L (136-145); TOTAL BILIRUBIN ADULT 0.7 MG/DL (0.2-1.0); TOTAL PROTEIN 6.8 GM/DL (6.4-8.2)
[2017-08-02] MEDS: SODIUM CHLOR 0.9% 1000 ML INJ 1,000 ML IV SCH ×2 (04:54→09:30)
[2017-08-02] MEDS ORDERED: SODIUM CHLOR 0.9% 1000 ML INJ 1,000 ML IV SCH (05:00)
--- NOTE | 2017-08-02 06:17 | HHI.CCPN ---
Subjective Remarks/Hospital Course 56-year-old male with history of end-stage renal disease on hemodialysis Friday , , Friday, Schizophrenia, GERD, esophagitis, type 2 diabetes mellitus, hypertension, aortic stenosis status post TAVR in January of last year presents from [facility] and rehab for evaluation of 3 episodes of coffee-ground emesis that occurred today. Patient states he then developed a severe epigastric pain. This has persisted throughout the afternoon. He reports nausea. He reports generalized weakness and not feeling well. He indicates that he is not making any urine.. He denies any chest pain or tightness. He has no difficulty breathing. He denies any shortness of breath. He was recently hospitalized in early June for severe anemia and GI bleed. He continues to take Plavix and aspirin. Subjective 08/02: Patient's respiratory rate in the 40s when seen this a.m. He denied chest pain or abdominal single was throwing up coffee-ground emesis continuously. Decision made to electively intubate. Already had NG tube placed. Prior to intubation, patient became acutely hypotensive with requiring norepinephrine drip at 50 mcg/min. Currently arousable and following commands. Objective Vital Signs Date Time Temp Pulse Resp B/P (MAP) Pulse Ox O2 Delivery O2 Flow Rate FiO2 08/02/17 06:00 125 28 92/44 (60) 92 08/02/17 04:00 98.3 08/01/17 22:02 Room Air Intake and Output 08/02/17 08/02/17 08/03/17 08:00 16:00 00:00 Intake Total 1320 ml Output Total 450 ml Balance 870 ml Result Diagram: 08/02/17 0334 08/02/17 0334 Imaging Last Impressions Chest X-Ray 08/01/17 0000 Signed Impressions: CONCLUSION: Suspected adjacent placed aortic valve replacement. Diffuse interstitial markings likely related to edema. Abdomen X-Ray 08/01/17 0000 Signed Impressions: CONCLUSION: Negative KUB. Objective Remarks GENERAL: 56-year-old male currently orotracheally intubated SKIN: Pallor. Focused skin assessment warm/dry. Multiple ecchymotic markings on the abdomen. Patient also has multiple old ecchymotic lesions on the bilateral upper extremities extremities and abdomen. Left upper extremity AV fistula with positive thrill HEAD: Atraumatic. Normocephalic. EYES: Pupils equal and round about 4 mm bilaterally reactive to 3. No scleral icterus. No injection or drainage. ENT: No nasal bleeding or discharge. Mucous membranes pink and moist. NECK: Trachea midline. No JVD. CARDIOVASCULAR: Tachycardic, RR. S1, S2 no S4. No S3. 2/6 systolic murmur RESPIRATORY: Diminished breath sounds. No wheezing/rales or rhonchi appreciated. Positive accessory muscle use. Breath sounds equal bilaterally. GASTROINTESTINAL: Abdomen rotund, soft, epigastric and left upper quadrant tenderness to palpation. No guarding on my examination or rigidity. No rebound tenderness. MUSCULOSKELETAL: No obvious deformities. Trace bilateral lower extremity edema NEUROLOGICAL: Prior to intubation post intubation arousable and able to follow simple commands. No obvious cranial nerve deficits. Patient moves all extremities spontaneously and to command. Normal speech. Gait was not assessed Urinary Catheter: Yes Assessment to: Continue Lara insert reason: Prolonged Immobilization Vascular Central Line Catheter: Yes Assessment to: Continue Line: Central Venous Catheter Side: Right Location: Internal, Jugular A/P Assessment and Plan Neuro/Psych: Acute toxic metabolic encephalopathy secondary to underlying illness Schizophrenia Depression disorder NOS History of seizures Currently a propofol/fentanyl drips for sedation/analgesia while intubated Goal of RASS of -2 Daily sedation vacation Continue divalproex sodium 500 mg twice daily. Check level now Seizure precaution Acetaminophen 650 mg by mouth every 6 hours as needed fever On fluoxetine 20 mg daily, mirtazapine 30 mg a day, lorazepam 1 mg twice daily ziprasidone 100 mg twice daily and hydroxyzine 25 mg twice daily at home for psychiatric medications CV: Significant shock History of hypertension History of TAVR Coronary artery disease Lactate acidosis Currently on norepinephrine drip at 30 mcg/min and vasopressin at 0.04 units a minute to maintain mean arterial pressure greater than equal to 65 CPK/troponin EKG and echocardiogram ordered. Hold metoprolol tartrate 12.5 mg of twice daily/home medication Holding clopidogrel 75 mg Aspirin 81 mg daily Serial lactates until cleared. Currently 8.0. Bolused with additional fluid. CVP ordered with results pending Resp: Acute hypercapnic respiratory failure [facility] 16/550/1/5/50 Ventilator bundle Albuterol/ipratropium aerosols every 4 hours with albuterol aerosols every 2 hours as needed dyspnea Spontaneous breathing trials when clinically indicated Follow-up on chest x-ray GI: Hematemesis History of grade C esophagitis History of Reza's esophagus History of erosive gastritis Hiatal hernia Gastroesophageal reflux disease Chronic constipation Hypoalbuminemia Elevated transaminases NGT LIWS GI has been consulted. Likely need endoscopy Currently on pantoprazole drip at 8 mg an hour On omeprazole 20 mg by mouth daily at home Follow-up on CT abdomen/pelvis. Hepatitis panel/CPK all ordered. On polythene glycol 17 g twice daily at home for constipation : No indication for Lara catheter. Endo: Secondary hyperparathyroidism Diabetes mellitus type 1.5 treat as diabetes mellitus type 1 At home on sliding scale insulin with Novulog 2-10 units Continue cinacalcet at 60 mg by tube daily Renal: End-stage renal disease on hemodialysis Friday//Friday. Heme: Acute blood loss anemia? Coagulopathy elevated INR On ferrous sulfate 325 mg a mill twice daily at home ID: Placed empirically on piperacillin/tazobactam and vancomycin Blood cultures 2, influenza and sputum all ordered 08/02 FEN: Hyper phosphatemia ContinueSevelamer 800 mg 3 times daily/home medication MSK: Holding cholecalciferol 2000 units daily Okay to hold vitamin C 5 mg twice daily Okay to hold Aracely-Annelise 1 tablet daily Access -Right IJ CVL day #1 placed 08/02 Prophylaxis -GI -pantoprazole drip -DVT -SCD/holding pharmacological prophylaxis in light of acute hemorrhage Critical Care: The total critical care time was 35 minutes. Time to perform other separately billable procedures was not included in the critical care time. Noted CT abdomen/pelvis revealed bowel perforation. Discussed with on-call surgery. OR plan. Joselo Grissom MD Aug 02, 2017 06:17
[2017-08-02] MEDS ORDERED: ROCURONIUM INJ 50 MG/5 ML VIAL ONE (06:37)
[2017-08-02] MEDS ORDERED: ETOMIDATE 40 MG/20 ML VIAL ONE (06:37)
[2017-08-02] MEDS ORDERED: NOREPINEPHRINE-DEXTROSE DRIP 250 ML IV ONE (06:37)
[2017-08-02] MEDS ORDERED: ETOMIDATE 40 MG/20 ML VIAL IV PUSH ONE (06:45)
[2017-08-02] MEDS ORDERED: TERBUTALINE INJ 1 MG/ML AMP SQ PRN ×2 (06:45→19:15)
[2017-08-02] MEDS ORDERED: ROCURONIUM INJ 100 MG/10 ML VIAL IV ONE (06:45)
[2017-08-02] MEDS ORDERED: PROPOFOL 1000 MG/100 ML INJ 100 ML IV PRN (06:45)
[2017-08-02] MEDS ORDERED: VASOPRESSIN 20 UNITS/ML VIAL ONE (06:59)
[2017-08-02] MEDS ORDERED: DIATRIZOATE MEGLUM/DIATRIZOATE SOD 9 ML CUP PO ONE (07:30)
[2017-08-02] MEDS ORDERED: SODIUM CHLORIDE 0.9% FLUSH 10 ML FLUSH IV FLUSH PRN ×2 (07:30→11:45)
[2017-08-02] MEDS ORDERED: PROPOFOL 500 MG/50 ML INJ 50 ML ONE (07:30)
[2017-08-02] MEDS ORDERED: VASOPRESSIN INJ 40 UNITS in DEXTROSE 5% IN WATER 100ML INJ 98 ML IV SCH ×2 (07:39)
[2017-08-02] MEDS ORDERED: RESP: ALBUTEROL 2.5 MG/3 ML NEB (PRN) NEB (07:45)
[2017-08-02] MEDS: VITAMIN B COMPLEX/VIT C TAB PO SCH (07:48)
[2017-08-02] MEDS: SEVELAMER CARBONATE 800 MG TAB PO SCH ×3 (07:48→17:00)
[2017-08-02] MEDS: FOLIC ACID 1 MG TAB PO SCH (07:53)
[2017-08-02] MEDS: FERROUS SULFATE 325 MG (65 MG ELEMENTAL IRON) TAB PO SCH ×2 (07:53→18:00)
[2017-08-02] MEDS: LORazepam 0.5 MG TAB PO SCH ×2 (07:53→20:27)
[2017-08-02] MEDS: CHOLECALCIFEROL (VIT D3) 1000 UNIT TAB PO SCH (07:54)
[2017-08-02] MEDS: ASCORBIC ACID 500 MG TAB PO SCH ×2 (07:54→21:00)
[2017-08-02] MEDS: hydrOXYzine PAMOATE 25 MG CAP PO SCH ×4 (07:54→21:00)
[2017-08-02] MEDS: ZIPRASIDONE HCL 20 MG CAP PO SCH ×2 (07:54→20:28)
[2017-08-02] MEDS: DOCUSATE SODIUM 50 MG/SENNA 8.6 MG TAB PO SCH ×2 (07:54→20:28)
[2017-08-02] MEDS: INSULIN ASPART SUPPLEMENTAL SCALE SQ SCH ×2 (08:00→12:00)
[2017-08-02] MEDS ORDERED: ACETAMINOPHEN 650 MG/20.3 ML UDC PO PRN (08:00)
[2017-08-02] MEDS: RESP: ALBUTEROL 2.5 MG/IPRATROPIUM 0.5 MG NEB (SCH) NEB ×5 (08:00→23:54)
[2017-08-02] MEDS ORDERED: SODIUM CHLOR 0.9% 1000 ML INJ 1,000 ML IV ONE ×7 (08:00→23:15)
--- NOTE | 2017-08-02 08:00 | PD.PROCEDR ---
Procedure Note Procedure DATE: 08/02/2017 PROCEDURE: Orotracheal intubation INDICATION: Acute hypercapnic respiratory failure DETAILS OF PROCEDURE The patient was placed in optimal position and preoxygenated with 100% FiO2 via bag valve mask. At the start oxygen saturation was 100%. The patient was administered 20 mg etomidate IV. I entered the oropharynx with a size 4 laryngoscope blade and obtained a grade 2 view of the airway. On single attempt a size 8.0 cuffed endotracheal tube was passed through the vocal cords. Correct tube location was confirmed with end tidal CO2 detector and by auscultating over bilateral lung acuna. The endotracheal tube was secured with adhesive tape at a depth of 24 cm at the lips. The patient was connected to the ventilator. The patient tolerated the procedure well without any apparent complications. Oxygen saturations were maintained greater than 95% all times. STAT chest x-ray adequate positioning of ET tube. Joselo Grissom MD Aug 02, 2017 08:00
--- NOTE | 2017-08-02 08:00 | PD.PROCEDR ---
Central Line Procedure REASON FOR PROCEDURE Central venous access PROCEDURE PERFORMED Central line placement: Right IJ CVL CONSENT Informed consent for procedure was obtained from patient. The risks and benefits of the procedure were discussed to include but limited to bleeding, clot formation, infection, and even . ANESTHESIA Local injection of 1% Lidocaine DESCRIPTION OF THE PROCEDURE The patient was placed in supine, mild Trendelenburg position. The area was exposed and cleansed with ChloraPrep, times two. Large sterile drape was used to cover the patient, with the site exposed, under sterile conditions including cap, face mask, sterile gown, and sterile gloves. On single attempt, the introducer needle was inserted with negative pressure in syringe and venous flash was obtained. The guide wire was then advanced without any restriction and the needle was removed. The dilator was used without any complications. Using Seldinger technique the antibiotic coated triple lumen catheter was advanced over the guide wire to a depth of 16 centimeters. The guide wire was removed. All ports were aspirated with dark venous blood return and flushed easily with sterile saline. All ports were capped. Antibiotic disc was placed around central line at puncture site. The central line was secured to the skin with two interrupted 2.0 silk sutures. Site was sutured secondary to patient diaphoretic and poor peripheral vascular access. StatLock would not stay in place. The area was bandaged with sterile see-through central line bandage. RADIOLOGICAL DATA Ultrasound guidance was used to locate right internal jugular vein. Doppler/ color flow was used to confirm venous flow. COMPLICATIONS: No apparent complications ESTIMATED BLOOD LOSS: Less than 1 cc. Joselo Grissom MD Aug 02, 2017 08:00
--- NOTE | 2017-08-02 08:01 | RADRPT ---
EXAM DATE: 08/02/2017 7:57 AM EDT AGE/SEX: 56 years / Male INDICATIONS: Central line placement. CLINICAL DATA: This is the patient's initial encounter. Patient reports that signs and symptoms have been present for 1 day and indicates a pain score of Nonresponsive. MEDICAL/SURGICAL HISTORY: . Hypercholesterolemia. Hypertension. Hepatitis C. Hyperparathyroidi sm. GERD. Diabetes. Anemia. Squamous skin cancer. . Tonsillectomy. Adenoidectomy. AV shunt. Dialy sis. Skin cancer removal from forehead. COMPARISON: [facility] [place], CHEST SINGLE AP, 10/24/2016. . FINDINGS: Endotracheal tube tip at the inferior margin the clavicles. Right jugular line tip overlies the SVC. Cardiomegaly. Clear lungs. Osseous structures are intact. Enteric tube courses beneath the diaphragm. CONCLUSION: Right jugular line as above. Electronically signed by: Quirino Iqbal MD 08/02/2017 7:59 AM EDT
[2017-08-02] MEDS ORDERED: GLUCAGON 1 MG/ML VIAL OTHER PRN (08:15)
[2017-08-02 08:19] LABS: HEMATOCRIT 35.7 % (39.0-51.0); HEMOGLOBIN 11.8 GM/DL (13.0-17.0)
[2017-08-02] MEDS: SODIUM CHLORIDE 0.9% FLUSH 10 ML FLUSH IV FLUSH SCH ×3 (08:19→20:27)
[2017-08-02] MEDS: CHLORHEXIDINE 0.12% (ORAL KIT) 15 ML CUP MT SCH ×2 (08:19→20:00)
[2017-08-02] MEDS: LACTIC ACID (AMMONIUM LACTATE) 12% LOTION 225 GM BTL TOPICAL SCH (08:20)
[2017-08-02] MEDS: VALPROIC ACID SYRUP 250 MG/5 ML UDC PO SCH ×2 (08:25→21:00)
--- NOTE | 2017-08-02 08:52 | RADRPT ---
EXAM DATE: 08/02/2017 8:48 AM EDT AGE/SEX: 56 years / Male INDICATIONS: Bilateral leg edema. CLINICAL DATA: This is the patient's initial encounter. Patient reports that signs and symptoms have been present for 1 day and indicates a pain score of Nonresponsive. MEDICAL/SURGICAL HISTORY: Hypercholesterolemia. Hypertension. GERD. Renal failure. Diabetes. D ialysis. Schizophrenia. Anemia. Skin cancer. Hepatitis C. Tonsillectomy. Left arm shunt. Skin cance r surgery. COMPARISON: [facility] – [place], LEG BILATERAL VENOUS DOPPLER, 05/26/2016. . TECHNIQUE: Venous ultrasound of both lower extremities was performed from the inguinal ligament to t he proximal calf. Real-time, color Doppler and spectral tracing, compression and augmentation techni ques were used. FINDINGS: Right Leg: There is normal compressibility of the deep venous system from the inguinal region to the proximal calf. No echogenic clot is seen in the lumen of the common femoral, femoral, popliteal, an d posterior tibial veins. There is a normal response of the venous system to proximal and distal aug mentation and respiration. Left Leg: There is normal compressibility of the deep venous system from the inguinal region to the proximal calf. No echogenic clot is seen in the lumen of the common femoral, femoral, popliteal, and posterior tibial veins. There is a normal response of the venous system to proximal and distal augm entation and respiration. CONCLUSION: 1. The study is negative for bilateral lower extremity deep venous thrombosis. Electronically signed by: Quirino Iqbal MD 08/02/2017 8:51 AM EDT
[2017-08-02] MEDS ORDERED: DIVALPROEX SODIUM E.R. 500 MG TAB PO SCH (09:00)
[2017-08-02] MEDS ORDERED: ZIPRASIDONE HCL 20 MG CAP PO SCH (09:00)
[2017-08-02] MEDS: MUPIROCIN 2% OINT 1 APPLIC/GM SYR EACH NARE SCH ×2 (09:52→21:00)
[2017-08-02] MEDS: NOREPINEPHRINE INJ 4 MG in SODIUM CHLOR 0.9% 250 ML INJ 246 ML IV PRN ×3 (10:58→14:57)
[2017-08-02] MEDS ORDERED: SODIUM CHLOR 0.9% 1000 ML INJ 1,000 ML OTHER PRN ×2 (11:40)
[2017-08-02] MEDS ORDERED: SODIUM CHLOR 0.9% 1000 ML INJ 1,000 ML IV PRN (11:40)
[2017-08-02] MEDS ORDERED: ACETAMINOPHEN 325 MG TAB PO PRN (11:45)
[2017-08-02] MEDS ORDERED: GELATIN 12 MM/7 MM FOAM TOP PRN (11:45)
[2017-08-02] MEDS ORDERED: ALBUMIN 25% INJ 100 ML IV PRN (11:45)
[2017-08-02] MEDS ORDERED: MANNITOL 12.5 GM/50 ML VIAL IV PRN (11:45)
[2017-08-02] MEDS ORDERED: NITROGLYCERIN 0.4 MG SL 25 TABS/BTL SL PRN (11:45)
[2017-08-02] MEDS ORDERED: HEPARIN SODIUM - IV 10,000 UNITS/10 ML VIAL IV FLUSH PRN (11:45)
[2017-08-02] MEDS ORDERED: EPOETIN ALFA 10,000 UNITS/ML VIAL IV PUSH PRN (11:45)
[2017-08-02] MEDS ORDERED: cloNIDine HCL 0.1 MG TAB PO PRN (11:45)
[2017-08-02] MEDS ORDERED: diphenhydrAMINE HCL 25 MG CAP PO PRN (11:45)
[2017-08-02] MEDS ORDERED: ONDANSETRON ODT 4 MG TAB PO PRN (11:45)
--- NOTE | 2017-08-02 11:57 | PD.CONS ---
HPI Service Nephrology Consult Requested By Dr. Wright Reason for Consult ESRD Primary Care Physician Unknown History of Present Illness Patient is a 56-year-old white male with history of end-stage renal disease, schizophrenia, history of TAVR who presented with nausea vomiting and coffee- ground emesis, he has increasing shortness of breath and required intubation he is on ventilator he is has sinus tachycardia, he goes on dialysis on Friday, and Friday and follows with Dr. Antony and Dr. Andersen. Past Family Social History Allergies: Coded Allergies: fexofenadine (Unverified Adverse Reaction, Unknown, PT DENIES ALLERGY, 08/01) Pt denies allergy Past Medical History End-stage renal disease on hemodialysis Friday//Friday Hypertension Schizophrenia Diabetes Chronic diastolic heart failure History of aortic stenosis now status post TAVR 02/07/17 Hiatal hernia Esophagitis Gastritis GI bleeding Past Surgical History Cardiac catheterization Dr. Garcia Hip replacement TAVR 02/07/[address] Dr[address] Dr. garcia Colonoscopy 01/20/[address] Hollins EGD 05/10/16 LA class B esophagitis, gastritis, duodenitis Reported Medications Reported Meds & Active Scripts Active Plavix (Clopidogrel Bisulfate) 75 Mg Tab 75 Mg PO DAILY 30 Days Levemir Inj (Insulin Detemir) 1,000 unit/ 10 ML Vial 5 Units SQ HS Do not mix with any other Insulin. Renvela (Sevelamer Carbonate) 800 Mg Tab 800 Mg PO TIDAC 30 Days Reported Zofran (Ondansetron HCl) 4 Mg Tab 4 Mg PO Q8HR PRN Sensipar (Cinacalcet) 60 Mg Tab 60 Mg PO HS Omeprazole 20 Mg Cap 20 Mg PO DAILY Novolog Inj (Insulin Aspart) 1,000 Unit/10 Ml Vial 2-10 Units SQ ACHS Sliding Scale as directed. If 150-199=2 units,200-249=4 units,250-299=6 units,300-349=8 units,350-399=10 units Ammonium Lactate (Lactic Acid (Ammonium Lactate)) 12% Lotn 1 Applic TOPICAL DAILY Geodon (Ziprasidone) 20 Mg Cap 100 Mg PO BID Take 1 capsule (20mg) with 80mg capsule for a total dose of 100mg Ativan (Lorazepam) 0.5 Mg Tab 0.5 Mg PO BID Vitamin D3 (Cholecalciferol) 2,000 Unit Cap 2,000 Units PO DAILY To be given after dialysis on dialysis days, and in am all other days Ferrous Sulfate 325 Mg (65 Mg Iron) Tablet 325 Mg PO BIDPC Vistaril (Hydroxyzine Pamoate) 25 Mg Cap 25 Mg PO QID Mirtazapine 30 Mg Tab 30 Mg PO HS Miralax Powder (Polyethylene Glycol 3350 Powder) 17 Gm Powd 17 Gm PO DAILY Mix and dissolve one measuring cap-ful (17 grams) in water or juice. Metoprolol Tartrate 25 Mg Tab 12.5 Mg PO Q12HR Vitamin C (Ascorbic Acid) 250 Mg Chew 500 Mg PO BID Aspirin 81 Mg Chew 81 Mg PO DAILY Prozac (Fluoxetine HCl) 20 Mg Cap 20 Mg PO HS Geodon (Ziprasidone) 80 Mg Cap 100 Mg PO BID Take 1 capsule (80mg) with 20mg capsule for a total dose of 100mg Aracely-Annelise (B-Complex W/ C & Folic Acid) 1 Tab 1 Tab PO DAILY Depakote ER (Divalproex Sodium) 500 Mg Prema 500 Mg PO BID Tums (Calcium Carbonate (Antacid)) 500 Mg Chew 500 Mg PO TIDPC PRN Tylenol (Acetaminophen) 325 Mg Tab 650 Mg PO Q6H PRN Do not exceed 3,000mg/24hrs Active Ordered Medications Current Medications Medications (Trade) Dose Ordered Sig/Diane Route Start Time Stop Time Status Last Admin Pantoprazole Sodium 80 mg/ Sodium Chloride 100 ml @ 10 mls/hr Q10H IV 08/01/17 19:11 08/02/17 04:34 Sodium Chloride 250 ml @ 15 mls/hr ONCE ONCE IV 08/01/17 19:45 08/02/17 12:24 08/01/17 21:10 (Vitamin D3) 2,000 units DAILY PO 08/02/17 09:00 (Ferrous Sulfate) 325 mg BIDPC PO 08/02/17 09:00 (PROzac) 20 mg HS PO 08/02/17 21:00 (Vistaril) 25 mg QID PO 08/02/17 09:00 (Lac-Hydrin 12% Lotion) 1 applic DAILY TOPICAL 08/02/17 09:00 (Ativan) 0.5 mg BID PO 08/02/17 09:00 (Remeron) 30 mg HS PO 08/02/17 21:00 (Renvela) 800 mg TIDAC PO 08/02/17 08:00 (Geodon) 100 mg BID PO 08/02/17 09:00 (Vitamin C) 500 mg BID PO 08/02/17 09:00 (Allbee C) 1 tab DAILY PO 08/02/17 09:00 (Sensipar) 60 mg HS PO 08/02/17 21:00 (Zofran Odt) 4 mg Q8HR PRN PO 08/01/17 21:30 08/02/17 00:11 Sodium Chloride 1,000 ml @ 84 mls/hr [id number] IV 08/01/17 21:21 08/02/17 09:30 (NS Flush) 2 ml UNSCH PRN IV FLUSH 08/01/17 21:30 (NS Flush) 2 ml BID IV FLUSH 08/02/17 09:00 08/02/17 08:19 (Morphine Inj) 2 mg Q2H PRN IV PUSH 08/01/17 21:30 08/02/17 04:31 (Reglan Inj) 5 mg Q6H PRN IV PUSH 08/01/17 21:30 08/01/17 23:34 (Restoril) 15 mg HS PRN PO 08/01/17 21:30 ([facility]) 1 [id number] XX 08/01/17 21:30 (Chlorhexidine 2% Cloth) 3 pack Taper DAILY@04 TOP 08/02/17 04:00 07/29/18 03:59 (Chlorhexidine 2% Cloth) 3 pack UNSCH PRN TOP 08/01/17 21:30 (Berta-Colace) 1 tab BID PO 08/02/17 09:00 (Milk Of Magnesia Liq) 30 ml Q12H PRN PO 08/01/17 21:30 (Senokot) 17.2 mg Q12H PRN PO 08/01/17 21:30 (Dulcolax Supp) 10 mg DAILY PRN RECTAL 08/01/17 21:30 (Lactulose Liq) 30 ml DAILY PRN PO 08/01/17 21:30 (D50w (Vial) Inj) 50 ml UNSCH PRN IV PUSH 08/01/17 21:30 (Glucagon Inj) 1 mg UNSCH PRN OTHER 08/01/17 21:30 (NovoLOG SUPPLEMENTAL SCALE) 1 ACHS SLIDING SCALE SQ 08/02/17 08:00 (Folate) 1 mg DAILY PO 08/02/17 09:00 (Peridex 0.12% Liq) 15 ml BID@08,20 MT 08/02/17 08:00 08/02/17 08:19 Propofol 100 ml @ 2.67 mls/hr TITRATE PRN IV 08/02/17 06:45 Fentanyl Citrate 250 ml @ 5 mls/hr TITRATE PRN IV 08/02/17 06:45 Norepinephrine Bitartrate 4 mg/ Sodium Chloride 250 ml @ 7.5 mls/hr TITRATE PRN IV 08/02/17 07:30 08/02/17 10:58 (Brethine Inj) 1 mg UNSCH PRN SQ 08/02/17 06:45 (NS Flush) DAILY IV FLUSH 08/02/17 09:00 (NS Flush) UNSCH PRN IV FLUSH 08/02/17 07:30 (Bactroban Nasal 2% Oint) 1 applic Taper BID EACH NARE 08/02/17 09:00 07/29/18 08:59 08/02/17 09:52 (Duoneb Neb) 1 ampule Q4HR NEB NEB 08/02/17 08:00 (Albuterol Neb) 2.5 mg Q2HR NEB PRN NEB 08/02/17 07:45 (Tears Naturale Opth Soln) 1 drop Q8HR EACH EYE 08/02/17 14:00 Vasopressin 40 units/Dextrose 100 ml @ 1.5 mls/hr Q24H IV 08/02/17 07:39 (Depakene Liq) 500 mg BID PO 08/02/17 09:00 (Tylenol 650 Mg/ 20 ml Liq) 650 mg Q6H PRN PO 08/02/17 08:00 (D50w (Vial) Inj) 50 ml UNSCH PRN IV PUSH 08/02/17 08:15 (Glucagon Inj) 1 mg UNSCH PRN OTHER 08/02/17 08:15 (NovoLIN R SUPPLEMENTAL SCALE) 1 Q4HR SQ 08/02/17 12:00 (SoluCORTEF INJ) 100 mg Q8HR IV PUSH 08/02/17 14:00 Family History Father of colon cancer at age 85 Mother of breast cancer in her 30s Social History He did not smoke, or drink alcohol [facility] Physical Exam Vital Signs Vital Signs Date Time Temp Pulse Resp B/P (MAP) Pulse Ox O2 Delivery O2 Flow Rate FiO2 08/02/17 11:00 98.7 124 23 76/48 (57) 97 08/02/17 10:58 125 80/49 08/02/17 09:40 98.4 124 20 100/52 99 08/02/17 08:28 116 108/50 08/02/17 08:00 124 08/02/17 08:00 98.4 126 26 108/73 (85) 94 08/02/17 08:00 35 08/02/17 06:59 120 102/56 08/02/17 06:58 100 100 08/02/17 06:00 125 28 92/44 (60) 92 08/02/17 06:00 125 08/02/17 05:46 109/84 (92) 08/02/17 05:00 133 08/02/17 05:00 133 28 82/48 (59) 95 08/02/17 04:36 45 08/02/17 04:00 141 08/02/17 04:00 98.3 141 38 92/54 (67) 99 08/02/17 03:00 135 28 100/51 (67) 99 08/02/17 03:00 135 08/02/17 02:00 138 08/02/17 02:00 141 32 94/65 (75) 96 08/02/17 01:00 145 08/02/17 01:00 145 32 124/58 (80) 91 08/02/17 00:19 98.6 143 32 119/57 97 08/02/17 00:05 98.6 143 24 111/56 08/02/17 00:04 98.6 143 35 111/56 96 08/02/17 00:00 140 08/02/17 00:00 98.6 140 35 126/63 (84) 99 08/01/17 22:31 128 08/01/17 22:31 98.8 130 28 149/117 (128) 96 08/01/17 22:27 08/01/17 22:02 121 22 118/71 (87) 99 Room Air 08/01/17 21:14 98.4 115 22 92/57 97 08/01/17 20:55 98.3 117 20 99/60 97 08/01/17 20:15 116 18 97/51 (66) 96 Room Air 08/01/17 19:02 111 20 102/54 (70) 98 Room Air 08/01/17 18:45 118 85/57 (66) 08/01/17 17:46 18 08/01/17 17:43 98.4 120 16 94/50 (65) 99 Physical Exam GENERAL: Well-nourished, well-developed intubated patient. SKIN: Warm and dry. HEAD: Normocephalic. EYES: No scleral icterus. No injection or drainage. NECK: Supple, trachea midline. No JVD or lymphadenopathy. CARDIOVASCULAR: Tachycardic. RESPIRATORY: Breath sounds equal bilaterally. No accessory muscle use. GASTROINTESTINAL: Abdomen soft, non-tender, nondistended. EXTREMITIES: No cyanosis, or 1+ edema. AV fistula left arm NEUROLOGICAL: Sedated Laboratory Laboratory Tests Test 08/01/17 18:01 08/01/17 18:30 08/01/17 19:03 08/01/17 21:20 White Blood Count 15.4 Red Blood Count 3.49 Hemoglobin 10.5 Hematocrit 31.7 Mean Corpuscular Volume 90.9 Mean Corpuscular Hemoglobin 30.1 Mean Corpuscular Hemoglobin Concent 33.1 Red Cell Distribution Width 15.1 Platelet Count 331 Mean Platelet Volume 9.7 Neutrophils (%) (Auto) 84.9 Lymphocytes (%) (Auto) 4.7 Monocytes (%) (Auto) 10.0 Eosinophils (%) (Auto) 0.0 Basophils (%) (Auto) 0.4 Neutrophils # (Auto) 13.0 Lymphocytes # (Auto) 0.7 Monocytes # (Auto) 1.5 Eosinophils # (Auto) 0.0 Basophils # (Auto) 0.1 CBC Comment DIFF FINAL Differential Comment Prothrombin Time 13.4 Prothromb Time International Ratio 1.3 Activated Partial Thromboplast Time 29.3 Blood Urea Nitrogen 75 Creatinine 7.10 Random Glucose 197 Total Protein 7.4 Albumin 2.7 Calcium Level 9.8 Alkaline Phosphatase 262 Aspartate Amino Transf (AST/SGOT) 16 Alanine Aminotransferase (ALT/SGPT) 14 Total Bilirubin 0.4 Sodium Level 137 Potassium Level 4.7 Chloride Level 91 Carbon Dioxide Level 28.4 Anion Gap 18 Estimat Glomerular Filtration Rate 8 Ammonia 18 Lactic Acid Level 2.9 2.3 Test 08/01/17 22:30 08/02/17 03:34 08/02/17 08:00 08/02/17 09:00 Nasal Screen MRSA (PCR) MRSA DETECTED White Blood Count 4.0 Red Blood Count 3.98 Hemoglobin 11.9 11.8 Hematocrit 35.8 35.7 Mean Corpuscular Volume 89.8 Mean Corpuscular Hemoglobin 29.8 Mean Corpuscular Hemoglobin Concent 33.1 Red Cell Distribution Width 17.0 Platelet Count 293 Mean Platelet Volume 9.6 Neutrophils (%) (Auto) 80.0 Lymphocytes (%) (Auto) 7.5 Monocytes (%) (Auto) 12.2 Eosinophils (%) (Auto) 0.1 Basophils (%) (Auto) 0.2 Neutrophils # (Auto) 3.2 Lymphocytes # (Auto) 0.3 Monocytes # (Auto) 0.5 Eosinophils # (Auto) 0.0 Basophils # (Auto) 0.0 CBC Comment DIFF FINAL Differential Comment Prothrombin Time 15.8 Prothromb Time International Ratio 1.6 Activated Partial Thromboplast Time 29.5 32.1 Blood Urea Nitrogen 84 Creatinine 7.93 Random Glucose 141 Total Protein 6.8 Albumin 2.5 Calcium Level 9.9 Phosphorus Level 7.6 Magnesium Level 2.1 Alkaline Phosphatase 233 Aspartate Amino Transf (AST/SGOT) 136 Alanine Aminotransferase (ALT/SGPT) 108 Total Bilirubin 0.7 Sodium Level 141 Potassium Level 4.2 Chloride Level 94 Carbon Dioxide Level 22.5 Anion Gap 25 Estimat Glomerular Filtration Rate 7 Lactic Acid Level 8.0 6.4 Fibrinogen 722 Lactate Dehydrogenase 905 Total Creatine Kinase 1788 Creatine Kinase MB 81.3 Creatine Kinase MB % 4.5 Troponin I 0.20 Amylase Level 112 Lipase 77 Thyroid Stimulating Hormone 3rd Gen 1.140 Random Cortisol 125.2 Valproic Acid (Depakene) Level 7 Blood Gas Puncture Site ART LINE Blood Gas Patient Temperature 98.6 Blood Gas HCO3 20 Blood Gas Base Excess -4.7 Blood Gas Oxygen Saturation 95 Arterial Blood pH 7.33 Arterial Blood Partial Pressure CO2 40 Arterial Blood Partial Pressure O2 116 Arterial Blood Oxygen Content 15.4 Arterial Blood Carboxyhemoglobin 1.2 Arterial Blood Methemoglobin 1.2 Blood Gas Hemoglobin 11.4 Oxygen Delivery Device VENTILATOR Blood Gas Ventilator Setting Blood Gas Inspired Oxygen 40 Date/Time Source Procedure Growth Status 08/02/17 10:36 Blood Peripheral Aerobic Blood Culture Pending Received 08/02/17 10:36 Blood Peripheral Anaerobic Blood Culture Pending Received Result Diagram: 08/02/17 0800 08/02/17 0334 Imaging Last Impressions Chest X-Ray 08/02/17 0730 Signed Impressions: CONCLUSION: Right jugular line as above. Lower Extremity Ultrasound 08/02/17 0000 Signed Impressions: CONCLUSION: 1. The study is negative for bilateral lower extremity deep venous thrombosis. Abdomen X-Ray 08/01/17 0000 Signed Impressions: CONCLUSION: Negative KUB. Assessment and Plan Problem List: (1) End stage renal failure on dialysis ICD Codes: N18.6 - End stage renal failure on dialysis; Z99.2 - Dependence on renal dialysis Status: Chronic Plan: Patient will need hemodialysis today orders have been given continue supportive care Discussed with staff Monitor BMP hemoglobin and hematocrit (2) Respiratory failure ICD Codes: J96.90 - Respiratory failure, unspecified, unspecified whether with hypoxia or hypercapnia Plan: Intubated (3) GI bleed ICD Codes: K92.2 - Gastrointestinal hemorrhage, unspecified Status: Acute Plan: Continue to monitor (4) Hypertension ICD Codes: I10 - Hypertension Status: Acute Plan: Hypotensive monitor blood pressure (5) DM (diabetes mellitus) ICD Codes: E11.9 - DM (diabetes mellitus) Status: Chronic Plan: Monitor blood glucose Problem Qualifiers (1) GI bleed: Qualified Codes: K92.2 - Gastrointestinal hemorrhage, unspecified Tyler Crowe MD Aug 02, 2017 11:56
[2017-08-02] MEDS ORDERED: PHENYLEPHRINE HCL 10 MG/ML VIAL IV ONE (12:00)
[2017-08-02] MEDS ORDERED: PHENYLEPH/NS 1000 MCG/10 ML SYR IV ONE (12:00)
[2017-08-02] MEDS: INSULIN NovoLIN REGULAR SUPPLEMENTAL SCALE SQ SCH ×3 (12:00→19:48)
[2017-08-02] MEDS ORDERED: PROPOFOL 200 MG/20 ML AMP IV ONE (12:00)
[2017-08-02] MEDS ORDERED: SODIUM CHLORID 0.9% 500 ML INJ 1,000 ML IV ONE (12:00)
[2017-08-02] MEDS ORDERED: ePHEDrine/NS 25 MG/5 ML SYRINGE IV ONE (12:00)
[2017-08-02] MEDS ORDERED: SODIUM CHLOR 0.9% 250 ML INJ 500 ML IV ONE (12:00)
[2017-08-02] MEDS ORDERED: ALBUMIN 5% INJ 250 ML IV ONE (12:30)
[2017-08-02] MEDS ORDERED: NOREPINEPHRINE INJ 4 MG in SODIUM CHLOR 0.9% 250 ML INJ 246 ML IV PRN (12:45)
[2017-08-02] MEDS ORDERED: CALCIUM CHLORIDE 10% SOLN 1 GRAM/10 ML SYR ONE ×2 (13:17→18:18)
[2017-08-02] MEDS ORDERED: EPINEPHrine HCL (1:10,000) 1 MG/10 ML SYRINGE ONE (13:17)
--- NOTE | 2017-08-02 13:45 | RADRPT ---
EXAM DATE: 08/02/2017 1:36 PM EDT AGE/SEX: 56 years / Male INDICATIONS: General weakness and vomiting. CLINICAL DATA: This is the patient's initial encounter. Patient reports that signs and symptoms have been present for 1 day and indicates a pain score of Nonresponsive. MEDICAL/SURGICAL HISTORY: Carcinoma, skin cancer. Hepatitis C. Diabetes mellitus type II. . t rans aortic valve replacement RADIATION DOSE: 5.95 CTDI (mGy) COMPARISON: [facility] [place], CT ABDOMEN & PELVIS W/O CONTRAST, 10/23/2016. . TECHNIQUE: Multiple contiguous axial images were obtained through the abdomen. Images were obtained using multiple row detector helical technique. Using dose reduction techniques, radiation dose was ke pt as low as reasonably achievable to obtain optimal diagnostic quality images. FINDINGS: Aortic valve replacement hardware identified. There is cardiomegaly. Small bilateral effusions and lo wer lobe consolidation is identified. There is a large amount of free intraperitoneal air seen. There is air within the gallbladder wall and an air-fluid level within the gallbladder is identified. The kidneys are small and contain numerous cysts as well as calcifications likely renal vascular however a 4.8 mm nonobstructing left renal calculus is identified. Atherosclerotic calcification of the aorta is noted. There is extensive free air is seen throughout the abdomen and into the pelvis. Urinary bl adder is unremarkable. There is diverticulosis identified. There is no lymphadenopathy. There is abno rmal bowel wall thickening involving the mid transverse colon on axial image 52 and 53. This is a foc al finding, and a circumferential colonic mass is difficult to exclude. Review of bone windows demons trate no worrisome osseous lesions. Left hip arthroplasty. An enteric tube is present, and the tip te rminates in the distal stomach. A small amount of free fluid in the small bowel mesentery is noted. CONCLUSION: 1. There is no evidence for bowel obstruction, adenopathy or aneurysm. 2. Large amount of free intraperitoneal air is identified, exact origin site uncertain. In addition there is gallbladder wall emphysema noted circumferentially with an air-fluid level within the gallbl adder. Emphysematous cholecystitis with perforation would be the leading differential diagnostic cons ideration, however bowel perforation is also in the differential diagnosis. 3. There is focal bowel wall thickening involving the mid transverse colon which is nonspecific. An annular constricting neoplasm is difficult to exclude on the basis of this examination. 4. There is a small amount of free fluid in the mesentery, perihepatic and perisplenic regions. Electronically signed by: Quirino Iqbal MD 08/02/2017 1:44 PM EDT
--- NOTE | 2017-08-02 13:52 | RADRPT ---
EXAM DATE: 08/02/2017 1:36 PM EDT AGE/SEX: 56 years / Male INDICATIONS: Respiratory distress. CLINICAL DATA: This is the patient's initial encounter. Patient reports that signs and symptoms have been present for 1 day and indicates a pain score of Nonresponsive. MEDICAL/SURGICAL HISTORY: Carcinoma, skin cancer. Diabetes mellitus type II. Hepatitis C. . trans aortic valve replacement RADIATION DOSE: 5.95 CTDI (mGy) COMPARISON: No prior exams available for comparison. TECHNIQUE: Multiple contiguous axial images were obtained through the chest without contrast. Image s were obtained in suspended respiration using multiple row detector helical technique. Using automa tiffany exposure control and adjustment of the mA and/or kV according to patient size, radiation dose was kept as low as reasonably achievable to obtain optimal diagnostic quality images. FINDINGS: Lungs: Bilateral lower lobe consolidation with air bronchograms. No infiltrates in the mid or upper lungs. Mediastinum: There is good visualization of the great vessels of the middle mediastinum. No evidenc e of mediastinal or hilar adenopathy/mass. Aortic valve stent. Dense mitral calcification. Coronary a rtery calcification. Pleurae: Small bilateral pleural effusions. Axillae: Unremarkable. Bony Structures: Unremarkable. Miscellaneous: ET tube tip well above the tommy. Gastric tube traverses into the stomach. Right IJ catheter tip in the superior vena cava. CONCLUSION: 1. Bilateral lower lung consolidation and bilateral small pleural effusions. 2. No evidence of pneumomediastinum. 3. Pneumoperitoneum seen on the upper abdominal images; please see CT abdomen/pelvis report. Electronically signed by: Papa Vivas MD 08/02/2017 1:50 PM EDT
--- NOTE | 2017-08-02 14:13 | PD.CONS ---
HPI History of Present Illness This is a 56 year old overweight male who was admitted to the hospital on 2017 into [facility] for symptoms of generalized weakness and 3 episodes of coffee-ground emesis over the past 24 hours. According to the record patient stated he developed severe epigastric pain that persisted and worsened over the past 24 hours with symptoms of nausea and generalized weakness. He came to the hospital for further evaluation and is now intubated has an oral gastric tube in place with dark coffee ground emesis and is being treated for septic shock. Current labs show hemoglobin 11.8, PT/INR 1.6, KUB unremarkable, CT of the abdomen is pending. Patient has sinus tachycardia heart rate 124 over the bundle branch block, hypoactive bowel sounds and mildly distended abdomen. Patient is sedated and nonresponsive with medications. Patient up until this admission was on Plavix and aspirin. (Kori Lomas) PFSH Past Medical History Anemia Anxiety Depression Skin cancer on forehead Hyperlipidemia End-stage renal disease with hemodialysis Schizophrenia GERD Esophagitis Diabetes type 2 Hypertension Aortic stenosis status post TAPVR Debility Past Surgical History TAVR, aortic stenosis Dialysis Friday AV shunt left upper arm Cataracts Skin surgery to forehead (Kori Lomas) Coded Allergies: fexofenadine (Unverified Adverse Reaction, Unknown, PT DENIES ALLERGY, 08/01) Pt denies allergy Medications Administered Medications Medications (Trade) Dose Ordered Sig/Diane Route PRN Reason Start Time Stop Time Status Last Admin Dose Admin Pantoprazole Sodium 80 mg/ Sodium Chloride 100 ml @ 10 mls/hr Q10H IV 08/01/17 19:11 08/02/17 04:34 Ondansetron HCl (Zofran Odt) 4 mg Q8HR PRN PO NAUSEA OR VOMITING 08/01/17 21:30 08/02/17 00:11 Sodium Chloride 1,000 ml @ 84 mls/hr [id number] IV 08/01/17 21:21 08/02/17 09:30 Sodium Chloride (NS Flush) 2 ml BID IV FLUSH 08/02/17 09:00 08/02/17 08:19 Morphine Sulfate (Morphine Inj) 2 mg Q2H PRN IV PUSH PAIN SCALE 6 TO 10 08/01/17 21:30 08/02/17 04:31 Metoclopramide HCl (Reglan Inj) 5 mg Q6H PRN IV PUSH NAUSEA OR VOMITING 08/01/17 21:30 08/01/17 23:34 Chlorhexidine Gluconate (Peridex 0.12% Liq) 15 ml BID@08,20 MT 08/02/17 08:00 08/02/17 08:19 Propofol 100 ml @ 2.67 mls/hr TITRATE PRN IV SEDATION 08/02/17 06:45 08/02/17 12:24 Mupirocin (Bactroban Nasal 2% Oint) 1 applic Taper BID EACH NARE 08/02/17 09:00 07/29/18 08:59 08/02/17 09:52 Family History Unknown family history Social History Per the record no alcohol tobacco or illicit drug use (Kori Lomas) GI Exam Vitals I&O Vital Signs Date Time Temp Pulse Resp B/P (MAP) Pulse Ox O2 Delivery O2 Flow Rate FiO2 08/02/17 12:45 119 24 111/53 (72) 99 08/02/17 12:30 122 28 101/53 (69) 97 08/02/17 12:25 122 99/53 08/02/17 12:15 124 24 93/52 (66) 97 08/02/17 12:00 35 08/02/17 12:00 99.0 125 24 86/51 (63) 97 08/02/17 11:45 125 23 92/53 (66) 96 08/02/17 11:42 96 35 08/02/17 11:30 124 22 95/53 (67) 97 08/02/17 11:15 124 25 90/52 (65) 97 08/02/17 11:00 98.7 124 23 76/48 (57) 97 08/02/17 11:00 124 23 76/48 (57) 97 08/02/17 10:58 125 80/49 08/02/17 09:40 98.4 124 20 100/52 99 08/02/17 08:28 116 108/50 08/02/17 08:00 124 08/02/17 08:00 98.4 126 26 108/73 (85) 94 08/02/17 08:00 35 08/02/17 06:59 120 102/56 08/02/17 06:58 100 100 08/02/17 06:00 125 28 92/44 (60) 92 08/02/17 06:00 125 08/02/17 05:46 109/84 (92) 08/02/17 05:00 133 08/02/17 05:00 133 28 82/48 (59) 95 08/02/17 04:36 45 08/02/17 04:00 141 08/02/17 04:00 98.3 141 38 92/54 (67) 99 08/02/17 03:00 135 28 100/51 (67) 99 08/02/17 03:00 135 08/02/17 02:00 138 08/02/17 02:00 141 32 94/65 (75) 96 08/02/17 01:00 145 08/02/17 01:00 145 32 124/58 (80) 91 08/02/17 00:19 98.6 143 32 119/57 97 08/02/17 00:05 98.6 143 24 111/56 08/02/17 00:04 98.6 143 35 111/56 96 08/02/17 00:00 140 08/02/17 00:00 98.6 140 35 126/63 (84) 99 08/01/17 22:31 128 08/01/17 22:31 98.8 130 28 149/117 (128) 96 08/01/17 22:27 08/01/17 22:02 121 22 118/71 (87) 99 Room Air 08/01/17 21:14 98.4 115 22 92/57 97 08/01/17 20:55 98.3 117 20 99/60 97 08/01/17 20:15 116 18 97/51 (66) 96 Room Air 08/01/17 19:02 111 20 102/54 (70) 98 Room Air 08/01/17 18:45 118 85/57 (66) 08/01/17 17:46 18 08/01/17 17:43 98.4 120 16 94/50 (65) 99 I/O 08/01/17 08/01/17 08/01/17 08/02/17 08/02/17 08/02/17 07:00 15:00 23:00 07:00 15:00 23:00 Intake Total 1000 ml 2430 ml 325 ml Output Total 450 ml Balance 1000 ml 1980 ml 325 ml Intake Oral 100 ml IV Total 1000 ml 1110 ml Packed Cells 800 ml FFP 300 ml Blood Product IV Normal Saline Flush 420 ml 25 ml Output Stool Total 0 ml Emesis 450 ml # Voids 0 Imaging Last Impressions Chest X-Ray 08/02/17 0730 Signed Impressions: CONCLUSION: Right jugular line as above. Lower Extremity Ultrasound 08/02/17 Signed Impressions: CONCLUSION: 1. The study is negative for bilateral lower extremity deep venous thrombosis. Chest CT 08/02/17 Signed Impressions: CONCLUSION: 1. Bilateral lower lung consolidation and bilateral small pleural effusions. 2. No evidence of pneumomediastinum. 3. Pneumoperitoneum seen on the upper abdominal images; please see CT abdomen/ pelvis report. Abdomen/Pelvis CT 08/02/17 Signed Impressions: CONCLUSION: 1. There is no evidence for bowel obstruction, adenopathy or aneurysm. 2. Large amount of free intraperitoneal air is identified, exact origin site u ncertain. In addition there is gallbladder wall emphysema noted circumferential ly with an air-fluid level within the gallbladder. Emphysematous cholecystitis with perforation would be the leading differential diagnostic consideration, ho wever bowel perforation is also in the differential diagnosis. 3. There is focal bowel wall thickening involving the mid transverse colon whi ch is nonspecific. An annular constricting neoplasm is difficult to exclude on the basis of this examination. 4. There is a small amount of free fluid in the mesentery, perihepatic and per isplenic regions. Abdomen X-Ray 08/01/17 Signed Impressions: CONCLUSION: Negative KUB. Laboratory Test 08/01/17 18:01 08/01/17 18:30 08/01/17 19:03 08/01/17 21:20 White Blood Count 15.4 TH/MM3 Red Blood Count 3.49 MIL/MM3 Hemoglobin 10.5 GM/DL Hematocrit 31.7 % Mean Corpuscular Volume 90.9 FL Mean Corpuscular Hemoglobin 30.1 PG Mean Corpuscular Hemoglobin Concent 33.1 % Red Cell Distribution Width 15.1 % Platelet Count 331 TH/MM3 Mean Platelet Volume 9.7 FL Neutrophils (%) (Auto) 84.9 % Lymphocytes (%) (Auto) 4.7 % Monocytes (%) (Auto) 10.0 % Eosinophils (%) (Auto) 0.0 % Basophils (%) (Auto) 0.4 % Neutrophils # (Auto) 13.0 TH/MM3 Lymphocytes # (Auto) 0.7 TH/MM3 Monocytes # (Auto) 1.5 TH/MM3 Eosinophils # (Auto) 0.0 TH/MM3 Basophils # (Auto) 0.1 TH/MM3 CBC Comment DIFF FINAL Differential Comment Prothrombin Time 13.4 SEC Prothromb Time International Ratio 1.3 RATIO Activated Partial Thromboplast Time 29.3 SEC Blood Urea Nitrogen 75 MG/DL Creatinine 7.10 MG/DL Random Glucose 197 MG/DL Total Protein 7.4 GM/DL Albumin 2.7 GM/DL Calcium Level 9.8 MG/DL Alkaline Phosphatase 262 U/L Aspartate Amino Transf (AST/SGOT) 16 U/L Alanine Aminotransferase (ALT/SGPT) 14 U/L Total Bilirubin 0.4 MG/DL Sodium Level 137 MEQ/L Potassium Level 4.7 MEQ/L Chloride Level 91 MEQ/L Carbon Dioxide Level 28.4 MEQ/L Anion Gap 18 MEQ/L Estimat Glomerular Filtration Rate 8 ML/MIN Ammonia 18 MCMOL/L Lactic Acid Level 2.9 mmol/L 2.3 mmol/L Test 08/01/17 22:30 08/02/17 03:34 08/02/17 08:00 08/02/17 09:00 Nasal Screen MRSA (PCR) MRSA DETECTED White Blood Count 4.0 TH/MM3 Red Blood Count 3.98 MIL/MM3 Hemoglobin 11.9 GM/DL 11.8 GM/DL Hematocrit 35.8 % 35.7 % Mean Corpuscular Volume 89.8 FL Mean Corpuscular Hemoglobin 29.8 PG Mean Corpuscular Hemoglobin Concent 33.1 % Red Cell Distribution Width 17.0 % Platelet Count 293 TH/MM3 Mean Platelet Volume 9.6 FL Neutrophils (%) (Auto) 80.0 % Lymphocytes (%) (Auto) 7.5 % Monocytes (%) (Auto) 12.2 % Eosinophils (%) (Auto) 0.1 % Basophils (%) (Auto) 0.2 % Neutrophils # (Auto) 3.2 TH/MM3 Lymphocytes # (Auto) 0.3 TH/MM3 Monocytes # (Auto) 0.5 TH/MM3 Eosinophils # (Auto) 0.0 TH/MM3 Basophils # (Auto) 0.0 TH/MM3 CBC Comment DIFF FINAL Differential Comment Prothrombin Time 15.8 SEC Prothromb Time International Ratio 1.6 RATIO Activated Partial Thromboplast Time 29.5 SEC 32.1 SEC Blood Urea Nitrogen 84 MG/DL Creatinine 7.93 MG/DL Random Glucose 141 MG/DL Total Protein 6.8 GM/DL Albumin 2.5 GM/DL Calcium Level 9.9 MG/DL Phosphorus Level 7.6 MG/DL Magnesium Level 2.1 MG/DL Alkaline Phosphatase 233 U/L Aspartate Amino Transf (AST/SGOT) 136 U/L Alanine Aminotransferase (ALT/SGPT) 108 U/L Total Bilirubin 0.7 MG/DL Sodium Level 141 MEQ/L Potassium Level 4.2 MEQ/L Chloride Level 94 MEQ/L Carbon Dioxide Level 22.5 MEQ/L Anion Gap 25 MEQ/L Estimat Glomerular Filtration Rate 7 ML/MIN Lactic Acid Level 8.0 mmol/L 6.4 mmol/L Fibrinogen 722 mg/dL Lactate Dehydrogenase 905 U/L Total Creatine Kinase 1788 U/L Creatine Kinase MB 81.3 NG/ML Creatine Kinase MB % 4.5 % Troponin I 0.20 NG/ML Amylase Level 112 U/L Lipase 77 U/L Thyroid Stimulating Hormone 3rd Gen 1.140 uIU/ML Random Cortisol 125.2 MCG/DL Valproic Acid (Depakene) Level 7 MCG/ML Blood Gas Puncture Site ART LINE Blood Gas Patient Temperature 98.6 Blood Gas HCO3 20 mmol/L Blood Gas Base Excess -4.7 mmol/L Blood Gas Oxygen Saturation 95 % Arterial Blood pH 7.33 Arterial Blood Partial Pressure CO2 40 mmHg Arterial Blood Partial Pressure O2 116 mmHg Arterial Blood Oxygen Content 15.4 Vol % Arterial Blood Carboxyhemoglobin 1.2 % Arterial Blood Methemoglobin 1.2 % Blood Gas Hemoglobin 11.4 G/DL Oxygen Delivery Device VENTILATOR Blood Gas Ventilator Setting Blood Gas Inspired Oxygen 40 % Date/Time Source Procedure Growth Status 08/02/17 10:36 Blood Peripheral Aerobic Blood Culture Pending Received 08/02/17 10:36 Blood Peripheral Anaerobic Blood Culture Pending Received 08/02/17 09:55 Sputum Endotracheal Gram Stain Pending Received 08/02/17 09:55 Sputum Endotracheal Sputum Culture Pending Received Physical Examination HEENT: Sedated, overweight, normocephalic; atraumatic pale, intubated NECK: Neck is supple, short CHEST: Diminished breath sounds CARDIAC: Tachycardic rhythm ABDOMEN: Soft, nondistended, nontender; no hepatosplenomegaly; bowel sounds are present in all four quadrants. Oral gastric tube in 8 to to suction EXTREMITIES: Generalized edema. SKIN: no rash; no jaundice. LEGAL ACTIVITY ADJUDICATOR: Sedated (Kori Lomas) Assessment and Plan Plan 56-year-old male who noted nausea and generalized weakness, and coffee-ground emesis 3 events over the past 24 hours. Patient is a end-stage renal disease patient with hemodialysis on Friday and Friday also has comorbidities which include GERD and esophagitis according to the record. Patient has been on aspirin and Plavix secondary to his cardiac disease and aortic stenosis history of post TAVR. Currently in the [facility] setting intubated and sedated with possible septic shock. Orogastric tube connected to low intermittent suction with coffee-ground secretions noted current hemoglobin stable at 11.8, INR 1.6 unremarkable KUB. Patient was pending CT scan of the abdomen and pelvis. Report now shows no evidence of bowel obstruction adenopathy or aneurysm large amount of free intraperitoneal air identified. Gallbladder wall emphysema and cholecystitis. The bowel perfect could be considered in the differential diagnosis. There is focal bowel wall thickening involving the mid transverse colon, nonspecific and annular constricting neoplasm is difficult to exclude. Small amount of free fluid in the mesentery perihepatic and splenic regions. Currently patient is critically ill and any further procedures would need to be on an emergency basis. Plan N.p.o., oral gastric tube connected to suction Monitor labs with special attention to hemoglobin Consider EGD once patient is stable timing TBA Antiemetics PPI Steroids Further recommendations to follow Patient was seen per myself and Dr. Herrera, this note was written on his behalf (Kori Lomas) Physician Comments Seen and examined, plan as above. Unstable at the current time. Will follow up with you. Thank you for the consult. (Deric Herrera MD) Kori Lomas Aug 02, 2017 14:13 Deric Herrera MD Aug 02, 2017 14:16
[2017-08-02] MEDS: HYDROCORTISONE SOD SUCCINATE 100 MG VIAL IV PUSH SCH ×2 (14:57→22:19)
[2017-08-02] MEDS: ARTIFICIAL TEARS OPTH SOLN 15 ML BTL EACH EYE SCH ×2 (14:57→22:19)
--- NOTE | 2017-08-02 14:59 | EKG ---
Date Performed: 08/01/2017 Time Performed: 19:11:58 PTAGE: 56 years EKG: ECTOPIC ATRIAL TACHYCARDIA POSSIBLE LEFT ATRIAL ENLARGEMENT RIGHT BUNDLE BRANCH BLOCK LEFT ANTERIOR FASCICULAR BLOCK ABNORMAL ECG PREVIOUS TRACING : 08/01/2017 17.19 Since the previous tracing, no significant change noted DOCTOR: Delgado Cruz Interpretating Date/Time 08/02/2017 14:58:49
--- NOTE | 2017-08-02 15:03 | EKG ---
Date Performed: 08/01/2017 Time Performed: 17:19:30 PTAGE: 56 years EKG: SINUS TACHYCARDIA WITH FIRST DEGREE AV BLOCK RIGHT BUNDLE BRANCH BLOCK LEFT ANTERIOR FASCIC ULAR BLOCK MINIMAL VOLTAGE CRITERIA FOR LVH, CONSIDER NORMAL VARIANT ABNORMAL ECG PREVIOUS TRACING : 07/01/2017 04.42 Since the previous tracing, no significant change noted DOCTOR: Delgado Cruz Interpretating Date/Time 08/02/2017 15:02:01
[2017-08-02 15:22] LABS: HEMATOCRIT 35.5 % (39.0-51.0); HEMOGLOBIN 11.7 GM/DL (13.0-17.0)
[2017-08-02] MEDS ORDERED: CISATRACURIUM BESYLATE 20 MG/10 ML VIAL ONE (15:34)
[2017-08-02] MEDS ORDERED: fentaNYL CITRATE 250 MCG/5 ML AMP ONE (15:36)
[2017-08-02] MEDS ORDERED: MICAFUNGIN INJ 150 MG in SODIUM CHLORIDE 0.9% INJ 100 ML IV ONE (16:00)
[2017-08-02] MEDS ORDERED: NOREPINEPHRINE 4 MG/4 ML AMP ONE ×2 (16:01→19:17)
[2017-08-02] MEDS ORDERED: PIPERACIL-TAZO 4.5 GM PREMIX 100 ML IV ONE (16:30)
[2017-08-02] MEDS ORDERED: PHENYLEPHRINE HCL 10 MG/ML VIAL ONE (16:49)
[2017-08-02] MEDS ORDERED: SODIUM CHLORIDE 0.9% IV ONE (17:00)
[2017-08-02] MEDS ORDERED: DESMOPRESSIN IV ONE (17:00)
[2017-08-02] MEDS ORDERED: DO NOT ADM ANY ANTICOAGULANT DRUGS PRN ×2 (17:48→19:00)
[2017-08-02] MEDS: PIPERACIL-TAZO 3.375 GM PREMIX 50 ML IV SCH ×2 (18:00→23:46)
[2017-08-02] MEDS: FLUCONAZOLE 200 MG PREMIX BAG 100 ML IV SCH (18:00)
[2017-08-02] MEDS ORDERED: SODIUM BICARBONATE 8.4% INJ 50 MEQ/50 ML SYR ONE ×2 (18:19→22:06)
--- NOTE | 2017-08-02 18:34 | MB ---
cc: Mauro Campos MD, Slobodan MD DATE: 08/02/2017 REFERRING PHYSICIAN: Dr. Joselo Grissom, medical critical care. REASON FOR CONSULTATION: Acute peritonitis, septic shock, hypotensive shock, perforated viscus. HISTORY OF PRESENT ILLNESS: This 56-year-old male presented yesterday to the hospital with severe epigastric and abdominal pain, which had been there for a day or so. Patient had nausea. He was weak and felt poorly. He was admitted to ICU and worked up. Today I was called by Dr. Grissom stating that a CT of the abdomen reveals free air under the diaphragm and diffusely through the abdomen and question arises about the nature of his symptoms in this acute setting. PAST MEDICAL HISTORY: Complex. The patient has chronic renal failure on dialysis, longstanding diabetes mellitus, schizophrenia, hypertension, coronary artery disease, recent anemia and upper gastrointestinal bleed. PAST SURGICAL HISTORY: Cardiac catheterization, hip replacement, colonoscopy, EGD and TAVR in 01/2017 for aortic stenosis. MEDICATIONS: Can be found in the record includes Plavix. Levemir, Renvela, as well as a number of other medications for neuromodulation as well as blood pressure and coronary problems. PHYSICAL EXAMINATION: GENERAL: Reveals a 56-year-old male on the ventilator. HEENT: Normocephalic. No trauma to the head. Pupils are equal and reactive poorly. Extraocular muscles cannot be tested. NECK: Bilateral carotid pulses. CHEST: Bilateral breath sounds. The patient is fully ventilatory dependent. ABDOMEN: Somewhat distended with tympanic percussion consistent with free air or lots of air in the intestine, either way. There is some livedo reticularis senior government program analyst the abdominal wall consistent with hypovolemia vasoconstriction. EXTREMITIES: I can feel femoral pulses and that is about it. Distal pulses not present. ASSESSMENT AND PLAN: HEMODYNAMICS: The patient is hemodynamically unstable. He is on Levophed and vasopressin to maintain systolic blood pressure and, at this point, I believe he is massively under hydrated and hypovolemic. It should be noted that this patient likely has intestinal perforation with third spacing and systemic inflammatory response. Just a very fact the patient has chronic renal failure does not change the fact that the patient has to be volume resuscitated aggressively and then when it starts mobilizing fluid, it can always be removed by dialysis or ultrafiltration depending on the patient's hemodynamic status. Either way, this patient will require about 7 or 8 liters of fluid electrolytes to catch up with the prerenal hypovolemia. This is evident from lactic acid level which is 7 and from other parameters. As far as his respiratory status is concerned, the patient is full ventilatory support as he has metabolic acidosis, which is again a result of hypovolemia and under resuscitation. At this point, I believe the patient has perforated intestine and will be taken to the operating room immediately. In the operating room, the patient will likely receive massive amounts of fluids and, in the face of his renal failure, I am likely to give him some DDAVP probably about 4 mcg to account for platelet dysfunction and chronic renal failure. The type of intestinal perforation is hard to determine, but it is usually small and large bowel combination. In addition, the patient's gallbladder is emphysematous, indicating he probably has gangrene of the same as well. Critical care time 1 hour. MD ZORAIDA Norwood/ , 05:50 PM , 06:33 PM
--- NOTE | 2017-08-02 18:57 | MP ---
cc: Mauro Campos MD, Slobodan MD DATE OF OPERATION: 08/02/2017 PREOPERATIVE DIAGNOSIS: Septic shock, hypovolemic shock, hemodynamic instability, intestinal perforation. POSTOPERATIVE DIAGNOSES: 1. Septic shock hypovolemic shock, hemodynamic instability, intestinal perforation. 2. Perforation of the small intestine with massive spillage, gangrene of the last 4 feet of ileum, gangrene of the ascending colon and proximal transverse colon, gangrene of the gallbladder, peritonitis and sepsis. OPERATIVE PROCEDURES: Exploratory laparotomy right and transverse colon resection, small bowel resection, cholecystectomy, omentectomy and packing of the abdomen with wound VAC, irrigation and wound VAC placement. SURGEON: Mauro Campos MD ANESTHESIA: General. ESTIMATED BLOOD LOSS: 100 mL PROCEDURE IN DETAIL: The patient prepped and draped in usual fashion. Mid abdominal incision was made and the abdomen entered. Upon entrance of the abdomen, it is clearly evident patient has a gangrene because there is the smell of decaying tissue. Bookwalter retractor is placed and the abdomen is explored. Gallbladder clearly appears to be gangrenous, greenish black in color, very large. This is left for later to be removed and it is packed away. The small bowel was run from the ligament of Treitz down. Jejunum appears to be okay. As I am coming down to ileum, the patient has about last 4 feet of ileum, which are gangrenous and in the midst of this about 2 feet from the ileocecal valve, there is a large area of complete perforation, necrosis with significant spillage. This is immediately stapled off with CHRIS staplers before I went on. Right cecum appears to be [id number], ischemic, purplish-black in places. The same goes for ascending colon and then coming to the transverse colon, the proximal transverse colon appears to be also severely ischemic while midway appears to be okay so anatomically, this would be supply to the right colic and ileocolic arteries that is obviously impaired. A decision is now made to remove the obviously gangrenous bowel. In the meantime, it should be noted the abdomen was irrigated with copious amounts of saline, about 3 liters, because upon the entrance of the abdomen there is spillage of turbid, foul smelling fluid which is also cultured. The surgery is now started by first stapling of the part of the small bowel that was perforated as above noted and now the small bowel is again transected with CHRIS-75 stapler at the point where the normal appearing ileum turns into an ischemic looking one, about 4 feet away from the ileocecal valve. The meso ileum is clamped with Germaine clamps, divided and ligated with 0 silk ties and 0 Vicryl stick ties [id number]. The cecum is now reached. This one is freed up and now bowel is retracted medially and the white line of Toldt is incised with cautery all the way up to the hepatic flexure, which is taken down preserving the duodenum very carefully by sweeping it downward. As I go alongside the transverse colon, as above noted there is a transition area after which transverse colon looks pretty good. CHRIS stapler is fired here too. Mesocolon is now serially clamped with Germaine clamps, divided and ligated with 0 silks and 0 Vicryl stick ties. Now, the entire specimen is removed. Right ureter is carefully identified and preserved. The area irrigated with copious amounts of saline again and packed off. Gallbladder is now attended. The gallbladder is decompressed and then grasped with Germaine clamps, elevated, and removed in antegrade fashion in the bloodless plane by incising it between the gallbladder and the liver and then, with blunt dissection, the gallbladder is freed up down to the cystic duct and cystic artery, which are both clamped with right angles, divided, and tied with 0 silks. The gallbladder is now removed and the liver bed is irrigated with copious amounts of saline and then packed off with dry laps. Omentum is now observed. It appears to be ischemic all along, so it is taken off the transverse colon and the stomach by serial clamping and tying it with 0 silks, but there is not much bleeding there anyway. The abdomen is now irrigated with about 5 liters of fresh warm saline and then explored once more in quadrants. Decision of course made not to reconnect intestine, because I am going to go back here in a day or two to see how the bowel looks, so the ends of the intestine, transverse colon and ileum are left stapled but not connected. The right upper quadrant is attended and some bleeding is encountered from the liver bed. The patient is getting 4 mcg of DDAVP and in the face of his chronic renal failure and platelet dysfunction and then Carolina sheath is placed on the liver bed. This was packed with 2 laps and then a Opthera is cut to size and Opthera dressing placed over the intestine and then wound VAC. The patient tolerated the procedure well. Throughout the procedure, the patient required large amounts of fluids as was predictable and was maintained with Maximo-Synephrine, Levophed and vasopressin, taken to the ICU for further care. I discussed this with Dr. Grissom. I have spoken to the patient's brother and explained the not so great chances of survival with all this going on. My plan is to take the patient into the OR probably on Friday, wash him out and then close the abdomen, hopefully reanastomose the bowel if there is no more necrotic bowel. If there is, then all odds may be off. MD ZORAIDA Norwood/ , 05:58 PM , 06:56 PM
[2017-08-02] MEDS ORDERED: NOREPINEPHRINE INJ 8 MG in SODIUM CHLOR 0.9% 250 ML INJ 246 ML IV PRN (19:45)
[2017-08-02] MEDS: DEXTROSE 50% IN WATER 50 ML VIAL(D50) IV PUSH PRN (19:49)
[2017-08-02] MEDS: PHENYLEPHRINE INJ 160 MG in DEXTROSE 5% IN WATE 500 ML INJ 484 ML IV PRN ×2 (19:53)
[2017-08-02] MEDS: NOREPINEPHRINE INJ 8 MG in SODIUM CHLOR 0.9% 250 ML INJ 242 ML IV PRN ×3 (19:53→23:43)
[2017-08-02 20:15] LABS: HEMATOCRIT 29.4 % (39.0-51.0); HEMOGLOBIN 9.7 GM/DL (13.0-17.0)
[2017-08-02] MEDS ORDERED: DESMOPRESSIN ACETATE 4 MCG/ML VIAL IV ONE (20:45)
[2017-08-02 20:53] LABS: INTERNATIONAL NORMALIZED RATIO 1.9 RATIO; PROTHROMBIN TIME - PATIENT 18.9 SEC (9.8-11.6)
[2017-08-02] MEDS: FLUoxetine HCL 20 MG CAP PO SCH (21:00)
[2017-08-02] MEDS: CINACALCET HYDROCHLORIDE 30 MG TAB PO SCH (21:00)
[2017-08-02] MEDS: MIRTAZAPINE 15 MG TAB PO SCH (21:00)
[2017-08-02] MEDS: fentaNYL DRIP 250 ML IV PRN (21:12)
[2017-08-02] MEDS ORDERED: SODIUM CHLOR 0.9% 1000 ML INJ 2,000 ML IV STA (21:26)
[2017-08-02 21:27] LABS: CREATININE 6.31 MG/DL (0.60-1.30)
[2017-08-02 21:28] LABS: BICARBONATE 16.6 MEQ/L (21.0-32.0); MAGNESIUM 1.9 MG/DL (1.5-2.5); PHOSPHORUS 8.4 MG/DL (2.5-4.9)
[2017-08-02] MEDS ORDERED: SODIUM BICARBONATE 8.4% SOLN 50 MEQ/50 ML VIAL IV PUSH ONE (22:15)
[2017-08-02] MEDS: SODIUM BICARBONATE 8.4% INJ 150 MEQ in DEXTROSE 5% IN WATE 1000ML INJ 1,000 ML IV SCH ×2 (22:48)
[2017-08-03] VITALS (18 sets, daily range): BP systolic 75–124; BP diastolic 43–64; PULSE 93–149; RESP 20–27; TEMP 94.6–106.4; O2SAT 0–100
[2017-08-03] MEDS: NOREPINEPHRINE INJ 8 MG in SODIUM CHLOR 0.9% 250 ML INJ 242 ML IV PRN ×13 (00:57→21:53)
[2017-08-03 01:53] LABS: AUTOMATED NEUTROPHIL # 3.8 TH/MM3 (1.8-7.7); BASOPHIL % 0.2 % (0.0-2.0); EOSINOPHIL % 0.2 % (0.0-4.0); HEMATOCRIT 31.3 % (39.0-51.0); HEMOGLOBIN 10.2 GM/DL (13.0-17.0); LYMPH % 4.4 % (9.0-44.0); LYMPHOCYTE # 0.2 TH/MM3 (1.0-4.8); MEAN CELL VOLUME 91.5 FL (80.0-100.0); MEAN CORPUSCULAR HEMOGLOBIN 29.8 PG (27.0-34.0); MEAN CORPUSCULAR HGB CONC 32.6 % (32.0-36.0); MEAN PLATELET VOLUME 10.2 FL (7.0-11.0); MONO % 2.5 % (0.0-8.0); MONOCYTE # 0.1 TH/MM3 (0-0.9); NEUT % 92.7 % (16.0-70.0); PLATELET COUNT 195 TH/MM3 (150-450); RED BLOOD COUNT 3.42 MIL/MM3 (4.50-5.90); RED CELL DISTRIBUTION WIDTH 18.2 % (11.6-17.2); WHITE BLOOD COUNT 4.1 TH/MM3 (4.0-11.0)
[2017-08-03] MEDS ORDERED: DOPamine 800 MG/500 ML INJ 500 ML IV PRN (02:00)
[2017-08-03] MEDS ORDERED: TERBUTALINE INJ 1 MG/ML AMP SQ PRN ×2 (02:00→18:30)
[2017-08-03] MEDS ORDERED: ALBUMIN 5% INJ 500 ML IV ONE (02:00)
[2017-08-03 02:12] LABS: ALBUMIN 1.5 GM/DL (3.4-5.0); BICARBONATE 15.8 MEQ/L (21.0-32.0); BLOOD UREA NITROGEN 78 MG/DL (7-18); CALCIUM 9.1 MG/DL (8.5-10.1); CHLORIDE 113 MEQ/L (98-107); GLUCOSE,RANDOM 71 MG/DL (74-106); MAGNESIUM 1.9 MG/DL (1.5-2.5); SODIUM (NA) 147 MEQ/L (136-145)
[2017-08-03] MEDS: VASOPRESSIN INJ 40 UNITS in DEXTROSE 5% IN WATER 100ML INJ 98 ML IV SCH ×4 (02:17→15:55)
[2017-08-03 02:22] LABS: INTERNATIONAL NORMALIZED RATIO 1.9 RATIO; PROTHROMBIN TIME - PATIENT 19.2 SEC (9.8-11.6)
[2017-08-03 02:29] LABS: ALKALINE PHOSPHATASE 146 U/L (45-117); ALT (GPT) 1263 U/L (12-78); AST (GOT) 1610 U/L (15-37); CREATININE 5.94 MG/DL (0.60-1.30); GLOMERULAR FILTRATION RATE 10 ML/MIN (>89); HDL CHOLESTEROL 15.7 MG/DL (40.0-60.0); TOTAL BILIRUBIN ADULT 0.4 MG/DL (0.2-1.0); TOTAL PROTEIN 4.4 GM/DL (6.4-8.2); TRIGLYCERIDES 119 MG/DL (42-150); TROPONIN I 0.36 NG/ML (0.02-0.05)
[2017-08-03 02:31] LABS: CHOLESTEROL LESS THAN 50 MG/DL (120-200); CHOLESTEROL/ HDL RATIO 3.18 RATIO; LDL CHOLESTEROL 10 MG/DL (0-99)
[2017-08-03] MEDS ORDERED: DOPamine 400 MG/250 ML INJ 250 ML IV PRN (02:45)
[2017-08-03] MEDS: DEXTROSE 50% IN WATER 50 ML VIAL(D50) IV PUSH PRN ×3 (03:00→09:01)
[2017-08-03] MEDS ORDERED: INSULIN HUMAN REGULAR 1,000 UNITS/10 ML VIAL IV PUSH ONE (03:30)
[2017-08-03] MEDS ORDERED: DEXTROSE 50% IN WATER 50 ML VIAL(D50) IV PUSH ONE (03:30)
[2017-08-03] MEDS ORDERED: SODIUM CHLOR 0.9% 1000 ML INJ 1,000 ML IV ONE ×2 (03:30)
[2017-08-03 03:34] LABS: BANDS 28 % (0-6); CORRECTED NUCLEATED RBC 9 /100 WBC (0-0); LYMPHOCYTES 9 % (9-44); METAMYELOCYTES 1 % (0-1); MONOCYTES 1 % (0-8); NEUTROPHIL # MANUAL DIFF 3.7 TH/MM3 (1.8-7.7); NUCLEATED RED BLOOD CELL 9 (0-0); OVALOCYTES 1+ (NORMAL); POLYS (SEG NEUTROPHILS) 61 % (16-70)
[2017-08-03 03:35] LABS: DOHLE BODIES PRESENT (NONE SEEN); TOXIC GRANULATION 2+ (NORMAL)
[2017-08-03] MEDS: RESP: ALBUTEROL 2.5 MG/IPRATROPIUM 0.5 MG NEB (SCH) NEB ×5 (03:41→20:31)
[2017-08-03] MEDS: INSULIN NovoLIN REGULAR SUPPLEMENTAL SCALE SQ SCH ×6 (04:00→20:00)
[2017-08-03] MEDS: CHLORHEXIDINE GLUCONATE 2 % 1 PACK (2 CLOTHS) TOP SCH (04:00)
[2017-08-03] MEDS ORDERED: CALCIUM GLUCONATE INJ 2 GM in SODIUM CHLORIDE 0.9% INJ 100 ML IV ONE (04:00)
--- NOTE | 2017-08-03 04:03 | RADRPT ---
EXAM DATE: 08/03/2017 3:56 AM EDT AGE/SEX: 56 years / Male INDICATIONS: Respiratory failure. CLINICAL DATA: This is the patient's subsequent encounter. Patient reports that signs and symptoms h ave been present for 3 days and indicates a pain score of Nonresponsive. MEDICAL/SURGICAL HISTORY: . Hypercholesterolemia. Hypertension. Hepatitis C. Hyperparathyroidis m. GERD. Diabetes. Anemia. Squamous skin cancer. . Tonsillectomy. Adenoidectomy. AV shunt. Dialysis. Skin cancer removal from forehead. COMPARISON: [facility] – [place], 08/02/2017. . FINDINGS: The endotracheal tube, nasogastric, right IJ central line are in good position. Lungs are grossly yvrose ar. There is no pneumothorax. CONCLUSION: Lungs are grossly clear. Tubes and catheter in good position. Electronically signed by: Nash Akins MD 08/03/2017 4:01 AM EDT
[2017-08-03] MEDS: PANTOPRAZOLE INJ 80 MG in SODIUM CHLORIDE 0.9% INJ 100 ML IV SCH ×2 (04:06→12:31)
[2017-08-03] MEDS: PIPERACIL-TAZO 3.375 GM PREMIX 50 ML IV SCH ×2 (05:00→20:46)
[2017-08-03] MEDS: HYDROCORTISONE SOD SUCCINATE 100 MG VIAL IV PUSH SCH ×3 (05:00→21:58)
[2017-08-03] MEDS: ARTIFICIAL TEARS OPTH SOLN 15 ML BTL EACH EYE SCH ×3 (06:00→20:49)
[2017-08-03] MEDS ORDERED: ALBUMIN 25% INJ 100 ML IV ONE (07:00)
[2017-08-03] MEDS: SEVELAMER CARBONATE 800 MG TAB PO SCH ×3 (08:00→16:17)
[2017-08-03] MEDS: CHLORHEXIDINE 0.12% (ORAL KIT) 15 ML CUP MT SCH ×2 (08:00→20:00)
[2017-08-03 08:35] LABS: HEMATOCRIT 29.1 % (39.0-51.0); HEMOGLOBIN 9.5 GM/DL (13.0-17.0)
[2017-08-03] MEDS: ASCORBIC ACID 500 MG TAB PO SCH ×2 (09:00→20:48)
[2017-08-03] MEDS: hydrOXYzine PAMOATE 25 MG CAP PO SCH ×4 (09:00→20:48)
[2017-08-03] MEDS: SODIUM CHLORIDE 0.9% FLUSH 10 ML FLUSH IV FLUSH SCH ×3 (09:00→20:47)
[2017-08-03] MEDS: LORazepam 0.5 MG TAB PO SCH ×2 (09:00→20:47)
[2017-08-03] MEDS: DOCUSATE SODIUM 50 MG/SENNA 8.6 MG TAB PO SCH ×2 (09:00→20:48)
[2017-08-03] MEDS: FERROUS SULFATE 325 MG (65 MG ELEMENTAL IRON) TAB PO SCH ×2 (09:00→16:52)
[2017-08-03] MEDS: VITAMIN B COMPLEX/VIT C TAB PO SCH (09:00)
[2017-08-03] MEDS: ZIPRASIDONE HCL 20 MG CAP PO SCH ×2 (09:00→20:47)
[2017-08-03] MEDS: LACTIC ACID (AMMONIUM LACTATE) 12% LOTION 225 GM BTL TOPICAL SCH (09:00)
[2017-08-03] MEDS: FOLIC ACID 1 MG TAB PO SCH (09:00)
[2017-08-03] MEDS: CHOLECALCIFEROL (VIT D3) 1000 UNIT TAB PO SCH (09:00)
--- NOTE | 2017-08-03 09:31 | HHI.CCPN ---
Subjective Remarks/Hospital Course 56-year-old male with history of end-stage renal disease on hemodialysis Friday , , Friday, Schizophrenia, GERD, esophagitis, type 2 diabetes mellitus, hypertension, aortic stenosis status post TAVR in January of last year presents from [facility] for evaluation of 3 episodes of coffee-ground emesis that occurred today. Patient states he then developed a severe epigastric pain. This has persisted throughout the afternoon. He reports nausea. He reports generalized weakness and not feeling well. He indicates that he is not making any urine.. He denies any chest pain or tightness. He has no difficulty breathing. He denies any shortness of breath. He was recently hospitalized in early June for severe anemia and GI bleed. He continues to take Plavix and aspirin. Subjective 08/02: Patient's respiratory rate in the 40s when seen this a.m. He denied chest pain or abdominal single was throwing up coffee-ground emesis continuously. Decision made to electively intubate. Already had NG tube placed. Prior to intubation, patient became acutely hypotensive with requiring norepinephrine drip at 50 mcg/min. Currently arousable and following commands. 08/03: now in refractory shock. on multiple vasopressors. acidosis is refractory. needs emergent dialysis, but too unstable to tolerate IHD: will need to place vascath for CRRT. taken to OR yesterday, extended right hemicolectomy, small bowel resected, left in discontinuity with open abdomen. + 21L over last 24h. discussed case with surgeon, and will wait until Friday to re -explore abdomen. Objective Vital Signs Date Time Temp Pulse Resp B/P (MAP) Pulse Ox O2 Delivery O2 Flow Rate FiO2 08/03/17 08:12 99 90 08/03/17 07:53 148 103/56 08/03/17 04:00 98.7 22 08/01/17 22:02 Room Air Intake and Output 08/03/17 08/03/17 08/04/17 08:00 16:00 00:00 Intake Total 73850.5 ml Output Total 50 ml Balance 62077.5 ml Result Diagram: 08/03/17 0824 08/03/17 0130 Other Results Microbiology Date/Time Source Procedure Growth Status 08/02/17 09:55 Nasal Aspirate Influenza Types A,B Antigen (FRANCESCO) - Final NEGATIVE FOR FLU A AND B ANTIGEN.... Complete Laboratory Tests Test 08/02/17 16:25 08/02/17 20:50 08/03/17 04:02 Blood Gas Puncture Site ART LINE ART LINE ART LINE Blood Gas Patient Temperature 98.6 98.6 98.6 Blood Gas HCO3 15 mmol/L (22-26) 14 mmol/L (22-26) 14 mmol/L (22-26) Blood Gas Base Excess -11.4 mmol/L (-2-2) -12.1 mmol/L (-2-2) -12.2 mmol/L (-2-2) Blood Gas Oxygen Saturation 96 % (90-100) 95 % (90-100) 98 % (90-100) Arterial Blood pH 7.21 (7.380-7.420) 7.22 (7.380-7.420) 7.22 (7.380-7.420) Arterial Blood Partial Pressure CO2 38 mmHg (38-42) 36 mmHg (38-42) 36 mmHg (38-42) Arterial Blood Partial Pressure O2 193 mmHg (61-120) 112 mmHg (61-120) 276 mmHg (61-120) Arterial Blood Oxygen Content 17.8 Vol % (12.0-20.0) 13.7 Vol % (12.0-20.0) 13.2 Vol % (12.0-20.0) Arterial Blood Carboxyhemoglobin 0.8 % (0-4) 1.0 % (0-4) 0.9 % (0-4) Arterial Blood Methemoglobin 1.4 % (0-2) 1.1 % (0-2) 1.1 % (0-2) Blood Gas Hemoglobin 12.8 G/DL (12.0-16.0) 10.1 G/DL (12.0-16.0) 9.1 G/DL (12.0-16.0) Oxygen Delivery Device VENTILATOR VENTILATOR VENT Blood Gas Inspired Oxygen 100 % 100 % 100 % Blood Gas Ventilator Setting PRVC/AC PRVC/AC Imaging Last Impressions Chest X-Ray 08/01/17 0000 Signed Impressions: CONCLUSION: Suspected adjacent placed aortic valve replacement. Diffuse interstitial markings likely related to edema. Abdomen X-Ray 08/01/17 0000 Signed Impressions: CONCLUSION: Negative KUB. Objective Remarks GENERAL: 56-year-old male currently orotracheally intubated, lying in bed, in extremis. SKIN: Pallor. Focused skin assessment warm/dry. Multiple ecchymotic markings on the abdomen. Patient also has multiple old ecchymotic lesions on the bilateral upper extremities extremities and abdomen. Left upper extremity AV fistula with positive thrill HEAD: Atraumatic. Normocephalic. EYES: Pupils equal and round about 4 mm bilaterally reactive to 3. No scleral icterus. No injection or drainage. ENT: No nasal bleeding or discharge. Mucous membranes moist. NECK: Trachea midline. large neck circumference prevents accurate assessment of JVD. CARDIOVASCULAR: Tachycardic, RR. HR in the 140s. on levophed at 84 mcg/min, phenylephrine 300 mcg/min, dopamine 5 mcg/kg/min, vasopressin. RESPIRATORY: tachypneic. equal chest rise. full vent support. fio2 80%. Positive accessory muscle use. GASTROINTESTINAL: open abdomen. wound vac in place. moderate amount of serosanguinous drainage. no guarding. MUSCULOSKELETAL: No obvious deformities. 2+ peripheral edema. NEUROLOGICAL: RASS -3/-4. withdraws to pain weakly. opens eyes. does not follow commands. A/P Assessment and Plan Assessment: 56yM with ESRD and s/p colonic perforation with refractory distributive shock secondary to profound abdominal sepsis. unlikely to survive. will need emergent CRRT and ongoing vasopressor support. remains very critically ill. Neuro/Psych: Acute toxic metabolic encephalopathy secondary to underlying illness Schizophrenia Depression disorder NOS History of seizures Currently a propofol/fentanyl drips for sedation/analgesia while intubated Goal of RASS of -2 change VPA to IV. Seizure precaution Acetaminophen 650 mg by mouth every 6 hours as needed fever On fluoxetine 20 mg daily, mirtazapine 30 mg a day, lorazepam 1 mg twice daily ziprasidone 100 mg twice daily and hydroxyzine 25 mg twice daily at home for psychiatric medications hold all PO meds while in discontinuity. CV: Refractory septic shock History of hypertension History of recent TAVR Coronary artery disease Lactate acidosis- worsening levophed, dopamine, vasopressin, phenylephrine. add epinephrine goal map > 65 mmHg. Holding clopidogrel 75 mg Aspirin 81 mg daily Resp: Acute hypoxic and hypercapnic respiratory failure PRVC 26/600/10/80% Ventilator bundle Albuterol/ipratropium aerosols every 4 hours with albuterol aerosols every 2 hours as needed dyspnea wean fio2 for goal spo2 > 90% no weaning of mechanical ventilation until refractory shock improves trend abg GI: Hematemesis History of grade C esophagitis History of Reza's esophagus History of erosive gastritis Hiatal hernia Gastroesophageal reflux disease Chronic constipation Hypoalbuminemia Shock Liver Severe acute protein calorie malnutrition s/p exploratory laparotomy 08/02 with extended right hemicolectomy/ileocecectomy, cholecystectomy, left in discontinuity, open abdomen with Dr. Kathy [facility] has been consulted. d/c ppi drip iv bid ppi. strict NPO while in discontinuity. : anuric at baseline. no indication for ortiz catheter. Endo: Secondary hyperparathyroidism Diabetes mellitus type 1.5 treat as diabetes mellitus type 1 At home on sliding scale insulin with Novulog 2-10 units Continue cinacalcet at 60 mg by tube daily Renal: End-stage renal disease on hemodialysis Friday//Friday. Refractory acidosis - needs emergent CRRT. Heme: Acute blood loss anemia? Coagulopathy elevated INR On ferrous sulfate 325 mg a mill twice daily at home ID: Septic Shock Intra-abdominal sepsis Placed empirically on piperacillin/tazobactam and vancomycin Blood cultures 2, influenza and sputum all ordered 08/02 FEN: Hyper phosphatemia hold while in discontinuity: Sevelamer 800 mg 3 times daily/home medication MSK: Holding cholecalciferol 2000 units daily Okay to hold vitamin C 5 mg twice daily Okay to hold Aracely-Annelise 1 tablet daily Access -Right IJ CVL day #2 placed 08/02 Prophylaxis -GI -iv bid ppi -DVT -SCD/holding pharmacological prophylaxis in light of acute hemorrhage Critical Care: The total critical care time was 89 minutes. Time to perform other separately billable procedures was not included in the critical care time. King Merida MD Aug 03, 2017 09:31
[2017-08-03] MEDS: MUPIROCIN 2% OINT 1 APPLIC/GM SYR EACH NARE SCH ×2 (10:07→20:47)
[2017-08-03] MEDS ORDERED: HEPARIN-D5W 25,000 U/250 ML 250 ML IV PRN (11:00)
--- NOTE | 2017-08-03 11:18 | HHI.NPPN ---
Subjective History of Present Illness 56-year-old male with history of end-stage renal disease, TAVR came in with coffee-ground emesis Interval History Patient CT scan showed gangrenous gallbladder and possible bowel perforation Additional Remarks Underwent surgery resection of bowels gallbladder Objective Data Data Vital Signs Date Time Temp Pulse Resp B/P (MAP) Pulse Ox O2 Delivery O2 Flow Rate FiO2 08/03/17 09:41 148 88/51 08/03/17 08:12 99 90 08/03/17 07:53 148 103/56 08/03/17 06:26 148 92/51 08/03/17 05:00 145 77/43 08/03/17 05:00 97 100 08/03/17 04:18 137 94/47 08/03/17 04:00 98.7 144 22 109/50 (69) 95 08/03/17 04:00 100 08/03/17 03:50 136 99/51 08/03/17 02:52 96 100 08/03/17 02:18 138 76/42 08/03/17 02:17 134 74/41 08/03/17 00:57 138 82/47 08/03/17 00:06 132 08/03/17 00:00 100 08/03/17 00:00 98.5 132 20 90/46 (61) 96 08/02/17 23:43 134 93/46 08/02/17 22:21 137 95/47 08/02/17 20:35 94 100 08/02/17 20:00 100 08/02/17 20:00 99.0 130 20 101/44 (63) 93 08/02/17 19:53 128 106/46 08/02/17 19:53 128 105/45 08/02/17 18:00 100 08/02/17 18:00 122 16 99/55 (70) 92 08/02/17 15:20 97/52 08/02/17 15:15 129 23 94/51 (65) 94 08/02/17 15:10 129 87/50 08/02/17 15:10 100 100 08/02/17 15:00 127 23 104/58 (73) 95 91/51 (64) 08/02/17 15:00 126 08/02/17 14:57 126 91/50 08/02/17 14:45 125 24 94/51 (65) 95 08/02/17 14:30 125 37 85/49 (61) 94 08/02/17 14:15 125 23 88/49 (62) 95 08/02/17 14:10 100 100 08/02/17 14:00 124 21 105/58 (74) 95 92/49 (63) 08/02/17 13:45 125 34 113/60 (77) 100 97/45 (62) 08/02/17 13:40 124 38 110/60 (77) 108/49 (68) 08/02/17 13:35 122 20 105/54 (71) 100 155/101 (119) 08/02/17 13:30 122 140/86 (104) 100 08/02/17 13:20 122 26 119/58 (78) 100 103/39 (60) 08/02/17 13:00 123 21 97/50 (66) 99 08/02/17 12:45 119 24 111/53 (72) 99 08/02/17 12:30 122 28 101/53 (69) 97 08/02/17 12:25 122 99/53 08/02/17 12:15 124 24 93/52 (66) 97 08/02/17 12:00 35 08/02/17 12:00 99.0 125 24 86/51 (63) 97 08/02/17 11:45 125 23 92/53 (66) 96 08/02/17 11:42 96 35 08/02/17 11:30 124 22 95/53 (67) 97 08/02/17 11:15 124 25 90/52 (65) 97 08/02/17 11:00 98.7 124 23 76/48 (57) 97 08/02/17 11:00 124 23 76/48 (57) 97 08/02/17 10:58 125 80/49 -: 08/03/17 0824 08/03/17 0130 Microbiology 08/02/17 Fungal Smear - Final, Resulted NO FUNGAL ELEMENTS SEEN. 08/02/17 Fungal Culture, Resulted Pending 08/02/17 Acid Fast Stain, Received Pending 08/02/17 Mycobacterial Culture, Received Pending 08/02/17 Gram Stain - Final, Resulted 08/02/17 Body Fluid Culture, Resulted Pending Physical Exam General Appearance: Pale Pulmonary Resp Exam: Clear Bilaterally Cardiology CV Exam: Tachycardia Gastrointestinal/Abdomen GI Exam: Bowel Sounds Absent (Post surgical abdomen) Extremeties Extremities Exam: Moderate Edema Assessment/Plan Problem List: (1) End stage renal failure on dialysis ICD Codes: N18.6 - End stage renal failure on dialysis; Z99.2 - Dependence on renal dialysis Status: Chronic Plan: Patient events noted and had major surgery with gangrene gallbladder and bowel post surgery resection Exploratory laparotomy right and transverse colon resection, small bowel resection, cholecystectomy, omentectomy and packing of the abdomen with wound VAC, irrigation and wound VAC placement. Critically ill on pressors BP low And now requiring CRRT Vas-Cath placement Will require CVVHDF using 1/2 NS with 75 meq NaHCO3 at 500 cc/hr for pre dilutional , adding replacement 1/2 NS with 75 meq Na HCO3 at 1 L/hr, net UF 0, QB 180, QD 1 L/HR 2 K Bath D/W Dr. Merida 1535 pm seen during CRRT doing poorly, he is hyperventilating, BP Low, getting bicarb infusion multiple visits Dr. Andersen to follow (2) Respiratory failure ICD Codes: J96.90 - Respiratory failure, unspecified, unspecified whether with hypoxia or hypercapnia Plan: Intubated (3) GI bleed ICD Codes: K92.2 - Gastrointestinal hemorrhage, unspecified Status: Acute Plan: Continue to monitor (4) Hypertension ICD Codes: I10 - Hypertension Status: Acute Plan: Hypotensive monitor blood pressure (5) DM (diabetes mellitus) ICD Codes: E11.9 - DM (diabetes mellitus) Status: Chronic Plan: Monitor blood glucose (6) Sepsis ICD Codes: A41.9 - Sepsis, unspecified organism Plan: MRSA in sputum, Enterobacter treated with Zosyn Problem Qualifiers (1) GI bleed: Qualified Codes: K92.2 - Gastrointestinal hemorrhage, unspecified Tyler Crowe MD Aug 03, 2017 11:18
[2017-08-03] MEDS: PHENYLEPHRINE INJ 160 MG in DEXTROSE 5% IN WATE 500 ML INJ 484 ML IV PRN ×2 (11:21)
--- NOTE | 2017-08-03 11:21 | PD.PROCEDR ---
Procedure Note Procedure Central Line Procedure Note Left femoral 14 Danish 24 cm dialysis catheter Diagnosis: Intra-abdominal sepsis Indications: Refractory shock, refractory acidosis, need for continuous renal replacement therapy Consent: Obtained Anesthesia: 1% lidocaine locally, fentanyl IV Description of the Procedure: The patient was placed in the supine position. The area was prepped and draped sterilely. A 19g needle was inserted under negative pressure aspiration and dark venous blood was obtained. A guidewire was inserted easily without resistance. A small incision was made using a #11 blade. Using a modified Seldinger technique, the dilator and 14 Danish, 24 cm catheter were advanced over the guidewire without resistance. All ports were aspirated and flushed, and had brisk blood return. The line was secured at the skin using 2-0 silk interrupted sutures. Suture was used because a non- suture StatLock device was not available in the specific configuration of the dialysis catheter. Biopatch and Transparent sterile dressing were applied. There were no immediate complications noted. There was minimal EBL. The patient tolerated the procedure well. Ultrasound guidance was not used for this procedure I personally performed the procedure. King Merida MD Aug 03, 2017 11:21
[2017-08-03] MEDS: EPINEPHrine (1:1000) INJ 2 MG in DEXTROSE 5% IN WATER INJ 250 ML IV PRN ×6 (11:42→17:58)
[2017-08-03] MEDS: DEXTROSE 10% INJ 1,000 ML IV SCH (11:47)
[2017-08-03] MEDS: PIPERACIL-TAZO 2.25 GM PREMIX 50 ML IV SCH ×2 (12:20→16:17)
[2017-08-03] MEDS: SODIUM BICARBONATE 8.4% INJ 150 MEQ in DEXTROSE 5% IN WATE 1000ML INJ 1,000 ML IV SCH ×4 (12:20→17:21)
--- NOTE | 2017-08-03 12:32 | PD.CAR.PN ---
CVT Progress Note Subjective/Hospital Course: 56-year-old male with gangrenous right colon and perforated gangrenous small intestine as well as the gallbladder status post colectomy cholecystectomy and wound VAC placement Patient remains very critical Hemodynamically unstable on vasopressin/Levophed/Maximo-Synephrine and dopamine. Despite all the support patient is gradually deteriorating Remains acidotic with high lactic acid This patient has negligent chance of meaningful recovery and despite all the measures he appears to be in the irreversible systemic shock. I do not believe there is a reasonable chance of reaching points of resuscitation necessary for the patient to overcome this Should patient improved some I will take him back to the operating room for washout removal of the wound VAC and closure however right now patient is not stable enough for any of this Heroic attempts by the medical wastewater operator team are greatly appreciated and respected Continue to follow with you Objective: Vital Signs Date Time Temp Pulse Resp B/P (MAP) Pulse Ox O2 Delivery O2 Flow Rate FiO2 08/03/17 11:42 145 91/48 08/03/17 11:29 100 80 08/03/17 11:23 148 96/51 08/03/17 11:21 148 95/52 08/03/17 09:41 148 88/51 08/03/17 08:12 99 90 08/03/17 07:53 148 103/56 08/03/17 06:26 148 92/51 08/03/17 05:00 145 77/43 08/03/17 05:00 97 100 08/03/17 04:18 137 94/47 08/03/17 04:00 98.7 144 22 109/50 (69) 95 08/03/17 04:00 100 08/03/17 03:50 136 99/51 08/03/17 02:52 96 100 08/03/17 02:18 138 76/42 08/03/17 02:17 134 74/41 08/03/17 00:57 138 82/47 08/03/17 00:06 132 08/03/17 00:00 100 08/03/17 00:00 98.5 132 20 90/46 (61) 96 08/02/17 23:43 134 93/46 08/02/17 22:21 137 95/47 08/02/17 20:35 94 100 08/02/17 20:00 100 08/02/17 20:00 99.0 130 20 101/44 (63) 93 08/02/17 19:53 128 106/46 08/02/17 19:53 128 105/45 08/02/17 18:00 100 08/02/17 18:00 122 16 99/55 (70) 92 08/02/17 15:20 97/52 08/02/17 15:15 129 23 94/51 (65) 94 08/02/17 15:10 129 87/50 08/02/17 15:10 100 100 08/02/17 15:00 127 23 104/58 (73) 95 91/51 (64) 08/02/17 15:00 126 08/02/17 14:57 126 91/50 08/02/17 14:45 125 24 94/51 (65) 95 08/02/17 14:30 125 37 85/49 (61) 94 08/02/17 14:15 125 23 88/49 (62) 95 08/02/17 14:10 100 100 08/02/17 14:00 124 21 105/58 (74) 95 92/49 (63) 08/02/17 13:45 125 34 113/60 (77) 100 97/45 (62) 08/02/17 13:40 124 38 110/60 (77) 108/49 (68) 08/02/17 13:35 122 20 105/54 (71) 100 155/101 (119) 08/02/17 13:30 122 140/86 (104) 100 08/02/17 13:20 122 26 119/58 (78) 100 103/39 (60) 08/02/17 13:00 123 21 97/50 (66) 99 08/02/17 12:45 119 24 111/53 (72) 99 08/02/17 12:30 122 28 101/53 (69) 97 Labs: Laboratory Tests Test 08/03/17 01:30 08/03/17 04:02 08/03/17 08:24 08/03/17 09:32 White Blood Count 4.1 TH/MM3 (4.0-11.0) Red Blood Count 3.42 MIL/MM3 (4.50-5.90) Hemoglobin 10.2 GM/DL (13.0-17.0) 9.5 GM/DL (13.0-17.0) Hematocrit 31.3 % (39.0-51.0) 29.1 % (39.0-51.0) Mean Corpuscular Volume 91.5 FL (80.0-100.0) Mean Corpuscular Hemoglobin 29.8 PG (27.0-34.0) Mean Corpuscular Hemoglobin Concent 32.6 % (32.0-36.0) Red Cell Distribution Width 18.2 % (11.6-17.2) Platelet Count 195 TH/MM3 (150-450) Mean Platelet Volume 10.2 FL (7.0-11.0) Neutrophils (%) (Auto) 92.7 % (16.0-70.0) Lymphocytes (%) (Auto) 4.4 % (9.0-44.0) Monocytes (%) (Auto) 2.5 % (0.0-8.0) Eosinophils (%) (Auto) 0.2 % (0.0-4.0) Basophils (%) (Auto) 0.2 % (0.0-2.0) Neutrophils # (Auto) 3.8 TH/MM3 (1.8-7.7) Lymphocytes # (Auto) 0.2 TH/MM3 (1.0-4.8) Monocytes # (Auto) 0.1 TH/MM3 (0-0.9) Eosinophils # (Auto) 0.0 TH/MM3 (0-0.4) Basophils # (Auto) 0.0 TH/MM3 (0-0.2) CBC Comment AUTO DIFF Differential Total Cells Counted 100 Neutrophils % (Manual) 61 % (16-70) Band Neutrophils % 28 % (0-6) Lymphocytes % 9 % (9-44) Monocytes % 1 % (0-8) Neutrophils # (Manual) 3.7 TH/MM3 (1.8-7.7) Metamyelocytes 1 % (0-1) Nucleated Red Blood Cells 9 /100 WBC (0-0) Differential Comment FINAL DIFF MANUAL Toxic Granulation 2+ (NORMAL) Dohle Bodies PRESENT (NONE SEEN) Platelet Estimate NORMAL (NORMAL) Platelet Morphology Comment NORMAL (NORMAL) Basophilic Stippling FAINT (NORMAL) Ovalocytes 1+ (NORMAL) Prothrombin Time 19.2 SEC (9.8-11.6) Prothromb Time International Ratio 1.9 RATIO Activated Partial Thromboplast Time 43.7 SEC (24.3-30.1) Fibrinogen 669 mg/dL (227-377) Blood Urea Nitrogen 78 MG/DL (7-18) Creatinine 5.94 MG/DL (0.60-1.30) Random Glucose 71 MG/DL (74-106) Total Protein 4.4 GM/DL (6.4-8.2) Albumin 1.5 GM/DL (3.4-5.0) Calcium Level 9.1 MG/DL (8.5-10.1) Phosphorus Level 8.0 MG/DL (2.5-4.9) Magnesium Level 1.9 MG/DL (1.5-2.5) Alkaline Phosphatase 146 U/L (45-117) Aspartate Amino Transf (AST/SGOT) 1610 U/L (15-37) Alanine Aminotransferase (ALT/SGPT) 1263 U/L (12-78) Total Bilirubin 0.4 MG/DL (0.2-1.0) Sodium Level 147 MEQ/L (136-145) Potassium Level 5.4 MEQ/L (3.5-5.1) Chloride Level 113 MEQ/L (98-107) Carbon Dioxide Level 15.8 MEQ/L (21.0-32.0) Anion Gap 18 MEQ/L (5-15) Estimat Glomerular Filtration Rate 10 ML/MIN (>89) Lactic Acid Level 6.5 mmol/L (0.4-2.0) 6.2 mmol/L (0.4-2.0) Troponin I 0.36 NG/ML (0.02-0.05) Triglycerides Level 119 MG/DL (42-150) Cholesterol Level LESS THAN 50 MG/DL LDL Cholesterol 10 MG/DL (0-99) HDL Cholesterol 15.7 MG/DL (40.0-60.0) Cholesterol/HDL Ratio 3.18 RATIO Valproic Acid (Depakene) Level 7 MCG/ML (50-100) Hepatitis A IgM Antibody NONREACTIVE (NONREACTIVE) Hepatitis B Surface Antigen NONREACTIVE (NONREACTIVE) Hepatitis B Core IgM Antibody NONREACTIVE (NONREACTIVE) Hepatitis C IgG Antibody NONREACTIVE (NONREACTIVE) Blood Gas Puncture Site ART LINE ART LINE Blood Gas Patient Temperature 98.6 98.6 Blood Gas HCO3 14 mmol/L (22-26) 13 mmol/L (22-26) Blood Gas Base Excess -12.2 mmol/L (-2-2) -11.7 mmol/L (-2-2) Blood Gas Oxygen Saturation 98 % (90-100) 97 % (90-100) Arterial Blood pH 7.22 (7.380-7.420) 7.31 (7.380-7.420) Arterial Blood Partial Pressure CO2 36 mmHg (38-42) 27 mmHg (38-42) Arterial Blood Partial Pressure O2 276 mmHg (61-120) 153 mmHg (61-120) Arterial Blood Oxygen Content 13.2 Vol % (12.0-20.0) 12.5 Vol % (12.0-20.0) Arterial Blood Carboxyhemoglobin 0.9 % (0-4) 1.0 % (0-4) Arterial Blood Methemoglobin 1.1 % (0-2) 1.3 % (0-2) Blood Gas Hemoglobin 9.1 G/DL (12.0-16.0) 9.0 G/DL (12.0-16.0) Oxygen Delivery Device VENT VENTILATOR Blood Gas Ventilator Setting PRVC/AC PRVC/AC Blood Gas Inspired Oxygen 100 % 80 % Result Diagram: 08/03/17 0824 08/03/17 0130 Mauro Campos MD Aug 03, 2017 12:32
[2017-08-03] MEDS: VALPROATE IV SCH ×2 (12:33)
[2017-08-03] MEDS: NS IV SCH ×2 (12:33)
[2017-08-03] MEDS ORDERED: PROTAMINE SULFATE IV PRN (13:00)
[2017-08-03] MEDS ORDERED: SODIUM CHLOR 0.9% IV PRN (13:00)
[2017-08-03] MEDS ORDERED: POTASSIUM CHLOR 20 MEQ PREMIX 100 ML IV PRN (13:00)
[2017-08-03] MEDS: SODIUM BICARBONATE 8.4% INJ 75 MEQ in SODIUM CHLOR 0.45% 1000 ML INJ 1,000 ML IV SCH ×19 (13:00→23:50)
--- NOTE | 2017-08-03 13:06 | PD.ID.CON ---
History of Present Illness Service ID Consult Requested By Dr Campos Reason for Consult perforation, colon gangrene Primary Care Physician Unknown Diagnoses: History of Present Illness 56-year-old male with history of end-stage renal disease on hemodialysis Friday , , Friday, Schizophrenia, GERD, esophagitis, type 2 diabetes mellitus, hypertension, aortic stenosis status post TAVR in January of last year presents from [facility] re[facility] for evaluation of 3 episodes of coffee-ground emesis that occurred today. Patient presented with a severe epigastric pain, generalized weakness and not feeling well. patient's respiratory rate went in the 40s when seen this a.m. and he wqs intubated He was taken to OR yesterday, extended right hemicolectomy, small bowel resected , left in discontinuity with open abdomen. Op findings included gangrene of the ascending colon and proximal transverse colon, gangrene of the gallbladder, peritonitis plan to wait until Friday to re-explore abdomen. Today he in refractory shock. on multiple vasopressors. acidosis is refractory. needs emergent dialysis, but too unstable to tolerate IHD: will need to place vascath for CVVHD His blood cultures are growing Enterobacter and a gram+ drew in different sets Peritoneal fluid with heavy mixed culture Lactic acid is high, >6 Pt is extremely unstable despite of maxed out pressors (75 mics of Levaphed, 300 of neosynephrine), T max 106.4 and despite th epressor s his BP is very low 70s/40s On cont renal replacem treatment Review of Systems ROS Limitations: Clinical Condition, Intubated, Altered Mental Status Past Family Social History Allergies: Coded Allergies: fexofenadine (Unverified Adverse Reaction, Unknown, PT DENIES ALLERGY, 08/01) Pt denies allergy Past Medical History End-stage renal disease on hemodialysis Friday//Friday Hypertension Schizophrenia Diabetes Chronic diastolic heart failure History of aortic stenosis now status post TAVR 02/07/17 Hiatal hernia Esophagitis Gastritis Past Surgical History Cardiac catheterization Dr. Dewey Hip replacement TAVR 02/07/[address]. dewey Colonoscopy 01/20/[address] 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 Physical Exam Vital Signs Vital Signs Date Time Temp Pulse Resp B/P (MAP) Pulse Ox O2 Delivery O2 Flow Rate FiO2 08/03/17 11:42 145 91/48 08/03/17 11:29 100 80 08/03/17 11:23 148 96/51 08/03/17 11:21 148 95/52 08/03/17 09:41 148 88/51 08/03/17 08:12 99 90 08/03/17 07:53 148 103/56 08/03/17 06:26 148 92/51 08/03/17 05:00 145 77/43 08/03/17 05:00 97 100 08/03/17 04:18 137 94/47 08/03/17 04:00 98.7 144 22 109/50 (69) 95 08/03/17 04:00 100 08/03/17 03:50 136 99/51 08/03/17 02:52 96 100 08/03/17 02:18 138 76/42 08/03/17 02:17 134 74/41 08/03/17 00:57 138 82/47 08/03/17 00:06 132 08/03/17 00:00 100 08/03/17 00:00 98.5 132 20 90/46 (61) 96 08/02/17 23:43 134 93/46 08/02/17 22:21 137 95/47 08/02/17 20:35 94 100 08/02/17 20:00 100 08/02/17 20:00 99.0 130 20 101/44 (63) 93 08/02/17 19:53 128 106/46 08/02/17 19:53 128 105/45 08/02/17 18:00 100 08/02/17 18:00 122 16 99/55 (70) 92 08/02/17 15:20 97/52 08/02/17 15:15 129 23 94/51 (65) 94 08/02/17 15:10 129 87/50 08/02/17 15:10 100 100 08/02/17 15:00 127 23 104/58 (73) 95 91/51 (64) 08/02/17 15:00 126 08/02/17 14:57 126 91/50 08/02/17 14:45 125 24 94/51 (65) 95 08/02/17 14:30 125 37 85/49 (61) 94 08/02/17 14:15 125 23 88/49 (62) 95 08/02/17 14:10 100 100 08/02/17 14:00 124 21 105/58 (74) 95 92/49 (63) 08/02/17 13:45 125 34 113/60 (77) 100 97/45 (62) 08/02/17 13:40 124 38 110/60 (77) 108/49 (68) 08/02/17 13:35 122 20 105/54 (71) 100 155/101 (119) 08/02/17 13:30 122 140/86 (104) 100 08/02/17 13:20 122 26 119/58 (78) 100 103/39 (60) 08/02/17 13:00 123 21 97/50 (66) 99 Physical Exam CONSTITUTIONAL/GENERAL: This is an adequately nourished patient, in no apparent distress. TUBES/LINES/DRAINS: L fem Vas cath in place AV fistula in place LUE SKIN: No jaundice, rashes, or lesions. Ecchymoses on upper extremities. No wounds seen anteriorly. Skin temperature appropriate. Not diaphoretic. HEAD: Atraumatic. Normocephalic. EYES: Pupils equal and round and reactive. Extraocular motions intact. No scleral icterus. No injection or drainage. Fundi not examined. ENT: Hearing grossly normal. Nose without bleeding or purulent drainage. Throat without visible erythema, exudates, masses, or lesions. NECK: Trachea midline. Supple, nontender. No palpable thyroid enlargement or nodularity. CARDIOVASCULAR: Regular rate and rhythm without murmurs, gallops, or rubs. No JVD. Peripheral pulses symmetric. RESPIRATORY/CHEST: Symmetric, unlabored respirations. Clear to auscultation. Breath sounds equal bilaterally. No wheezes, rales, or rhonchi. GASTROINTESTINAL: Abdomen tight, distended OPen incision with wound Vac in place No hepato-splenomegaly, or palpable masses. No bowel sounds GENITOURINARY: Without palpable bladder distension. Lara catheter in place. No UOP MUSCULOSKELETAL: Extremities without clubbing, cyanosis, + 3-4 + edema. No mottling or clubbing. DIgits cold, refill very decreased especially on fingers LYMPHATICS: No palpable cervical or supraclavicular adenopathy. NEUROLOGICAL: sedated PSYCHIATRIC: unable to assess Laboratory Laboratory Tests Test 08/02/17 15:00 08/02/17 16:12 08/02/17 16:25 08/02/17 19:38 Hemoglobin 11.7 9.7 Hematocrit 35.5 29.4 Lactic Acid Level 5.9 6.3 Magnesium Level 2.1 1.9 Troponin I 0.31 0.33 Blood Gas Puncture Site ART LINE Blood Gas Patient Temperature 98.6 Blood Gas HCO3 15 Blood Gas Base Excess -11.4 Blood Gas Oxygen Saturation 96 Arterial Blood pH 7.21 Arterial Blood Partial Pressure CO2 38 Arterial Blood Partial Pressure O2 193 Arterial Blood Oxygen Content 17.8 Arterial Blood Carboxyhemoglobin 0.8 Arterial Blood Methemoglobin 1.4 Blood Gas Hemoglobin 12.8 Oxygen Delivery Device VENTILATOR Blood Gas Inspired Oxygen 100 Prothrombin Time 18.9 Prothromb Time International Ratio 1.9 Activated Partial Thromboplast Time 39.2 Fibrinogen 582 Blood Urea Nitrogen 81 Creatinine 6.31 Random Glucose 49 Calcium Level 9.0 Phosphorus Level 8.4 Sodium Level 146 Potassium Level 4.8 Chloride Level 110 Carbon Dioxide Level 16.6 Anion Gap 19 Estimat Glomerular Filtration Rate 9 Test 08/02/17 20:50 08/03/17 01:30 08/03/17 04:02 08/03/17 08:24 Blood Gas Puncture Site ART LINE ART LINE Blood Gas Patient Temperature 98.6 98.6 Blood Gas HCO3 14 14 Blood Gas Base Excess -12.1 -12.2 Blood Gas Oxygen Saturation 95 98 Arterial Blood pH 7.22 7.22 Arterial Blood Partial Pressure CO2 36 36 Arterial Blood Partial Pressure O2 112 276 Arterial Blood Oxygen Content 13.7 13.2 Arterial Blood Carboxyhemoglobin 1.0 0.9 Arterial Blood Methemoglobin 1.1 1.1 Blood Gas Hemoglobin 10.1 9.1 Oxygen Delivery Device VENTILATOR VENT Blood Gas Ventilator Setting PRVC/AC PRVC/AC Blood Gas Inspired Oxygen 100 100 White Blood Count 4.1 Red Blood Count 3.42 Hemoglobin 10.2 9.5 Hematocrit 31.3 29.1 Mean Corpuscular Volume 91.5 Mean Corpuscular Hemoglobin 29.8 Mean Corpuscular Hemoglobin Concent 32.6 Red Cell Distribution Width 18.2 Platelet Count 195 Mean Platelet Volume 10.2 Neutrophils (%) (Auto) 92.7 Lymphocytes (%) (Auto) 4.4 Monocytes (%) (Auto) 2.5 Eosinophils (%) (Auto) 0.2 Basophils (%) (Auto) 0.2 Neutrophils # (Auto) 3.8 Lymphocytes # (Auto) 0.2 Monocytes # (Auto) 0.1 Eosinophils # (Auto) 0.0 Basophils # (Auto) 0.0 CBC Comment AUTO DIFF Differential Total Cells Counted 100 Neutrophils % (Manual) 61 Band Neutrophils % 28 Lymphocytes % 9 Monocytes % 1 Neutrophils # (Manual) 3.7 Metamyelocytes 1 Nucleated Red Blood Cells 9 Differential Comment FINAL DIFF MANUAL Toxic Granulation 2+ Dohle Bodies PRESENT Platelet Estimate NORMAL Platelet Morphology Comment NORMAL Basophilic Stippling FAINT Ovalocytes 1+ Prothrombin Time 19.2 Prothromb Time International Ratio 1.9 Activated Partial Thromboplast Time 43.7 Fibrinogen 669 Blood Urea Nitrogen 78 Creatinine 5.94 Random Glucose 71 Total Protein 4.4 Albumin 1.5 Calcium Level 9.1 Phosphorus Level 8.0 Magnesium Level 1.9 Alkaline Phosphatase 146 Aspartate Amino Transf (AST/SGOT) 1610 Alanine Aminotransferase (ALT/SGPT) 1263 Total Bilirubin 0.4 Sodium Level 147 Potassium Level 5.4 Chloride Level 113 Carbon Dioxide Level 15.8 Anion Gap 18 Estimat Glomerular Filtration Rate 10 Lactic Acid Level 6.5 6.2 Troponin I 0.36 Triglycerides Level 119 Cholesterol Level LESS THAN 50 LDL Cholesterol 10 HDL Cholesterol 15.7 Cholesterol/HDL Ratio 3.18 Valproic Acid (Depakene) Level 7 Hepatitis A IgM Antibody NONREACTIVE Hepatitis B Surface Antigen NONREACTIVE Hepatitis B Core IgM Antibody NONREACTIVE Hepatitis C IgG Antibody NONREACTIVE Test 08/03/17 09:32 Blood Gas Puncture Site ART LINE Blood Gas Patient Temperature 98.6 Blood Gas HCO3 13 Blood Gas Base Excess -11.7 Blood Gas Oxygen Saturation 97 Arterial Blood pH 7.31 Arterial Blood Partial Pressure CO2 27 Arterial Blood Partial Pressure O2 153 Arterial Blood Oxygen Content 12.5 Arterial Blood Carboxyhemoglobin 1.0 Arterial Blood Methemoglobin 1.3 Blood Gas Hemoglobin 9.0 Oxygen Delivery Device VENTILATOR Blood Gas Ventilator Setting PRVC/AC Blood Gas Inspired Oxygen 80 Date/Time Source Procedure Growth Status 08/02/17 10:36 Blood Peripheral Aerobic Blood Culture - Preliminary NO GROWTH IN 1 DAY Resulted 08/02/17 10:36 Anaerobic Blood Culture - Preliminary Enterobacter Species Resulted 08/02/17 17:01 Fluid Peritoneal Fluid Fungal Smear - Final NO FUNGAL ELEMENTS SEEN. Resulted 08/02/17 17:01 Fluid Peritoneal Fluid Fungal Culture Pending Resulted 08/02/17 09:55 Sputum Endotracheal Gram Stain - Final Resulted 08/02/17 09:55 Sputum Endotracheal Sputum Culture Pending Resulted Result Diagram: 08/03/17 0824 08/03/17 0130 Imaging Last Impressions Chest X-Ray 08/03/17 0600 Signed Impressions: CONCLUSION: Lungs are grossly clear. Tubes and catheter in good position. Lower Extremity Ultrasound 08/02/17 0000 Signed Impressions: CONCLUSION: 1. The study is negative for bilateral lower extremity deep venous thrombosis. Chest CT 08/02/17 0000 Signed Impressions: CONCLUSION: 1. Bilateral lower lung consolidation and bilateral small pleural effusions. 2. No evidence of pneumomediastinum. 3. Pneumoperitoneum seen on the upper abdominal images; please see CT abdomen/ pelvis report. Abdomen/Pelvis CT 08/02/17 Signed Impressions: CONCLUSION: 1. There is no evidence for bowel obstruction, adenopathy or aneurysm. 2. Large amount of free intraperitoneal air is identified, exact origin site u ncertain. In addition there is gallbladder wall emphysema noted circumferential ly with an air-fluid level within the gallbladder. Emphysematous cholecystitis with perforation would be the leading differential diagnostic consideration, ho wever bowel perforation is also in the differential diagnosis. 3. There is focal bowel wall thickening involving the mid transverse colon whi ch is nonspecific. An annular constricting neoplasm is difficult to exclude on the basis of this examination. 4. There is a small amount of free fluid in the mesentery, perihepatic and per isplenic regions. Abdomen X-Ray 08/01/17 Signed Impressions: CONCLUSION: Negative KUB. Assessment and Plan Assessment and Plan Septic shock with , hemodynamic instability, Perforation of the small intestine with massive spillage, gangrene of the last 4 feet of ileum, gangrene of the ascending colon and proximal transverse colon, gangrene of the gallbladder, peritonitis - sp exploratory laparotomy right and transverse colon resection, small bowel resection, cholecystectomy, omentectomy and packing of the abdomen with wound VAC, irrigation and wound VAC placement. Enterobacter bactremia Acute VDRF MRSA in sputum Preexistyin ARF Prognosis is poor Pt is criticlly ill and unstable cont zosyn renally adjusted start vancomycin per levels cont micafungin FU cultures Discussed Condition With Nettie Luke MD Aug 03, 2017 13:06
[2017-08-03] MEDS: PANTOPRAZOLE SODIUM 40 MG VIAL IV PUSH SCH (13:07)
--- NOTE | 2017-08-03 14:22 | HHI.GIFU ---
Subjective Remarks Patient continues to be critically ill with gastric tube, dark bloody emesis Current hemoglobin 9.5, elevated LFTs probably secondary to shock Now adding continuous dialysis Patient is ventilated and sedated Tachycardic rhythm (Kori Lomas) Objective Vitals I&O Vital Signs Date Time Temp Pulse Resp B/P (MAP) Pulse Ox O2 Delivery O2 Flow Rate FiO2 08/03/17 13:46 121 88/49 08/03/17 13:08 134 99/50 08/03/17 11:42 145 91/48 08/03/17 11:29 100 80 08/03/17 11:23 148 96/51 08/03/17 11:21 148 95/52 08/03/17 09:41 148 88/51 08/03/17 08:12 99 90 08/03/17 07:53 148 103/56 08/03/17 06:26 148 92/51 08/03/17 05:00 145 77/43 08/03/17 05:00 97 100 08/03/17 04:18 137 94/47 08/03/17 04:00 98.7 144 22 109/50 (69) 95 08/03/17 04:00 100 08/03/17 03:50 136 99/51 08/03/17 02:52 96 100 08/03/17 02:18 138 76/42 08/03/17 02:17 134 74/41 08/03/17 00:57 138 82/47 08/03/17 00:06 132 08/03/17 00:00 100 08/03/17 00:00 98.5 132 20 90/46 (61) 96 08/02/17 23:43 134 93/46 08/02/17 22:21 137 95/47 08/02/17 20:35 94 100 08/02/17 20:00 100 08/02/17 20:00 99.0 130 20 101/44 (63) 93 08/02/17 19:53 128 106/46 08/02/17 19:53 128 105/45 08/02/17 18:00 100 08/02/17 18:00 122 16 99/55 (70) 92 08/02/17 15:20 97/52 08/02/17 15:15 129 23 94/51 (65) 94 08/02/17 15:10 129 87/50 08/02/17 15:10 100 100 08/02/17 15:00 127 23 104/58 (73) 95 91/51 (64) 08/02/17 15:00 126 08/02/17 14:57 126 91/50 08/02/17 14:45 125 24 94/51 (65) 95 08/02/17 14:30 125 37 85/49 (61) 94 08/02/17 14:15 125 23 88/49 (62) 95 I/O 08/02/17 08/02/17 08/02/17 08/03/17 08/03/17 08/03/17 07:00 15:00 23:00 07:00 15:00 23:00 Intake Total 2430 ml 4375 ml 5400 ml 39782.5 ml 1235 ml Output Total 450 ml 50 ml 50 ml Balance 1980 ml 4375 ml 5350 ml 25721.5 ml 1235 ml Intake Oral 100 ml IV Total 1110 ml 4050 ml 2400 ml 69712.5 ml 1235 ml Packed Cells 800 ml FFP 300 ml Blood Product IV Normal Saline Flush 420 ml 25 ml Other 3000 ml Output Urine Total 0 ml 0 ml Stool Total 0 ml Gastric Drainage Total 50 ml Emesis 450 ml Drainage Total 0 ml Estimated Blood Loss 50 ml # Voids 0 # Bowel Movements 0 Laboratory Laboratory Tests Test 08/02/17 15:00 08/02/17 16:12 08/02/17 16:25 08/02/17 19:38 Hemoglobin 11.7 9.7 Hematocrit 35.5 29.4 Lactic Acid Level 5.9 6.3 Magnesium Level 2.1 1.9 Troponin I 0.31 0.33 Blood Gas Puncture Site ART LINE Blood Gas Patient Temperature 98.6 Blood Gas HCO3 15 Blood Gas Base Excess -11.4 Blood Gas Oxygen Saturation 96 Arterial Blood pH 7.21 Arterial Blood Partial Pressure CO2 38 Arterial Blood Partial Pressure O2 193 Arterial Blood Oxygen Content 17.8 Arterial Blood Carboxyhemoglobin 0.8 Arterial Blood Methemoglobin 1.4 Blood Gas Hemoglobin 12.8 Oxygen Delivery Device VENTILATOR Blood Gas Inspired Oxygen 100 Prothrombin Time 18.9 Prothromb Time International Ratio 1.9 Activated Partial Thromboplast Time 39.2 Fibrinogen 582 Blood Urea Nitrogen 81 Creatinine 6.31 Random Glucose 49 Calcium Level 9.0 Phosphorus Level 8.4 Sodium Level 146 Potassium Level 4.8 Chloride Level 110 Carbon Dioxide Level 16.6 Anion Gap 19 Estimat Glomerular Filtration Rate 9 Test 08/02/17 20:50 08/03/17 01:30 08/03/17 04:02 08/03/17 08:24 Blood Gas Puncture Site ART LINE ART LINE Blood Gas Patient Temperature 98.6 98.6 Blood Gas HCO3 14 14 Blood Gas Base Excess -12.1 -12.2 Blood Gas Oxygen Saturation 95 98 Arterial Blood pH 7.22 7.22 Arterial Blood Partial Pressure CO2 36 36 Arterial Blood Partial Pressure O2 112 276 Arterial Blood Oxygen Content 13.7 13.2 Arterial Blood Carboxyhemoglobin 1.0 0.9 Arterial Blood Methemoglobin 1.1 1.1 Blood Gas Hemoglobin 10.1 9.1 Oxygen Delivery Device VENTILATOR VENT Blood Gas Ventilator Setting PRVC/AC PRVC/AC Blood Gas Inspired Oxygen 100 100 White Blood Count 4.1 Red Blood Count 3.42 Hemoglobin 10.2 9.5 Hematocrit 31.3 29.1 Mean Corpuscular Volume 91.5 Mean Corpuscular Hemoglobin 29.8 Mean Corpuscular Hemoglobin Concent 32.6 Red Cell Distribution Width 18.2 Platelet Count 195 Mean Platelet Volume 10.2 Neutrophils (%) (Auto) 92.7 Lymphocytes (%) (Auto) 4.4 Monocytes (%) (Auto) 2.5 Eosinophils (%) (Auto) 0.2 Basophils (%) (Auto) 0.2 Neutrophils # (Auto) 3.8 Lymphocytes # (Auto) 0.2 Monocytes # (Auto) 0.1 Eosinophils # (Auto) 0.0 Basophils # (Auto) 0.0 CBC Comment AUTO DIFF Differential Total Cells Counted 100 Neutrophils % (Manual) 61 Band Neutrophils % 28 Lymphocytes % 9 Monocytes % 1 Neutrophils # (Manual) 3.7 Metamyelocytes 1 Nucleated Red Blood Cells 9 Differential Comment FINAL DIFF MANUAL Toxic Granulation 2+ Dohle Bodies PRESENT Platelet Estimate NORMAL Platelet Morphology Comment NORMAL Basophilic Stippling FAINT Ovalocytes 1+ Prothrombin Time 19.2 Prothromb Time International Ratio 1.9 Activated Partial Thromboplast Time 43.7 Fibrinogen 669 Blood Urea Nitrogen 78 Creatinine 5.94 Random Glucose 71 Total Protein 4.4 Albumin 1.5 Calcium Level 9.1 Phosphorus Level 8.0 Magnesium Level 1.9 Alkaline Phosphatase 146 Aspartate Amino Transf (AST/SGOT) 1610 Alanine Aminotransferase (ALT/SGPT) 1263 Total Bilirubin 0.4 Sodium Level 147 Potassium Level 5.4 Chloride Level 113 Carbon Dioxide Level 15.8 Anion Gap 18 Estimat Glomerular Filtration Rate 10 Lactic Acid Level 6.5 6.2 Troponin I 0.36 Triglycerides Level 119 Cholesterol Level LESS THAN 50 LDL Cholesterol 10 HDL Cholesterol 15.7 Cholesterol/HDL Ratio 3.18 Valproic Acid (Depakene) Level 7 Hepatitis A IgM Antibody NONREACTIVE Hepatitis B Surface Antigen NONREACTIVE Hepatitis B Core IgM Antibody NONREACTIVE Hepatitis C IgG Antibody NONREACTIVE Test 08/03/17 09:32 Blood Gas Puncture Site ART LINE Blood Gas Patient Temperature 98.6 Blood Gas HCO3 13 Blood Gas Base Excess -11.7 Blood Gas Oxygen Saturation 97 Arterial Blood pH 7.31 Arterial Blood Partial Pressure CO2 27 Arterial Blood Partial Pressure O2 153 Arterial Blood Oxygen Content 12.5 Arterial Blood Carboxyhemoglobin 1.0 Arterial Blood Methemoglobin 1.3 Blood Gas Hemoglobin 9.0 Oxygen Delivery Device VENTILATOR Blood Gas Ventilator Setting PRVC/AC Blood Gas Inspired Oxygen 80 Date/Time Source Procedure Growth Status 08/02/17 10:36 Blood Peripheral Aerobic Blood Culture - Preliminary NO GROWTH IN 1 DAY Resulted 08/02/17 10:36 Anaerobic Blood Culture - Preliminary Enterobacter Species Resulted 08/02/17 17:01 Fluid Peritoneal Fluid Fungal Smear - Final NO FUNGAL ELEMENTS SEEN. Resulted 08/02/17 17:01 Fluid Peritoneal Fluid Fungal Culture Pending Resulted 08/02/17 09:55 Sputum Endotracheal Gram Stain - Final Resulted 08/02/17 09:55 Sputum Culture - Preliminary S. Aureus Mrsa Resulted Imaging Last Impressions Chest X-Ray 08/03/17 0600 Signed Impressions: CONCLUSION: Lungs are grossly clear. Tubes and catheter in good position. Lower Extremity Ultrasound 08/02/17 0000 Signed Impressions: CONCLUSION: 1. The study is negative for bilateral lower extremity deep venous thrombosis. Chest CT 08/02/17 0000 Signed Impressions: CONCLUSION: 1. Bilateral lower lung consolidation and bilateral small pleural effusions. 2. No evidence of pneumomediastinum. 3. Pneumoperitoneum seen on the upper abdominal images; please see CT abdomen/ pelvis report. Abdomen/Pelvis CT 08/02/17 0000 Signed Impressions: CONCLUSION: 1. There is no evidence for bowel obstruction, adenopathy or aneurysm. 2. Large amount of free intraperitoneal air is identified, exact origin site u ncertain. In addition there is gallbladder wall emphysema noted circumferential ly with an air-fluid level within the gallbladder. Emphysematous cholecystitis with perforation would be the leading differential diagnostic consideration, ho wever bowel perforation is also in the differential diagnosis. 3. There is focal bowel wall thickening involving the mid transverse colon whi ch is nonspecific. An annular constricting neoplasm is difficult to exclude on the basis of this examination. 4. There is a small amount of free fluid in the mesentery, perihepatic and per isplenic regions. Abdomen X-Ray 08/01/17 0000 Signed Impressions: CONCLUSION: Negative KUB. Physical Exam HEENT: normocephalic; atraumatic; no jaundice. Pale, obese, ET tube NECK: Neck short, supple CHEST: Chest is clear with mild rhonchi, ventilator support respirations in sync CARDIAC: Tachycardic ABDOMEN: Large, round, obese,taut, open mid abdomen wound with wound VAC secured ; bowel sounds soft, hypoactive EXTREMITIES: Generalized extremity edema SKIN: Pale no rash; no jaundice. 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 Patient is a end-stage renal disease patient with hemodialysis on Friday and Friday also has comorbidities which include GERD and esophagitis according to the record. Patient has been on aspirin and Plavix secondary to his cardiac disease and aortic stenosis history of post TAVR. Currently in the [facility] setting intubated and sedated with possible septic shock. Orogastric tube connected to low intermittent suction with coffee-ground secretions noted current hemoglobin stable at 11.8, INR 1.6 unremarkable KUB. Patient was pending CT scan of the abdomen and pelvis. Report now shows no evidence of bowel obstruction adenopathy or aneurysm large amount of free intraperitoneal air identified. Gallbladder wall emphysema and cholecystitis. The bowel perfect could be considered in the differential diagnosis. There is focal bowel wall thickening involving the mid transverse colon, nonspecific and annular constricting neoplasm is difficult to exclude. Small amount of free fluid in the mesentery perihepatic and splenic regions. Currently patient is critically ill and any further procedures would need to be on an emergency basis. 08/03/2017 patient continues to decline and is now requiring continuous dialysis. Current labs show hemoglobin 12.5, AST 1610, ALT 1263. Alkaline phosphatase 146. Gastric tube shows dark red bloody secretions. Patient still requiring ventilator support and multiple meds to maintain blood pressure. Elevated liver enzymes probably secondary to shock liver. Too sick for any procedures unless it ends up being an emergent event. Currently patient is still full code full aggressive care. There are some family members visiting often known. May need EGD in the future. Plan N.p.o., oral gastric tube connected to suction Monitor labs with special attention to hemoglobin, and LFTs for shock liver Consider EGD once patient is stable timing TBA Antiemetics PPI Steroids Supportive care to family Further recommendations to follow Patient was seen per myself and Dr. Herrera, this note was written on his behalf (Kori Lomas) Physician Comments As above, will follow up with periodically. Unstable at the current time. (Deric Herrera MD) Kori Lomas Aug 03, 2017 14:22 Derci Herrera MD Aug 03, 2017 14:42
--- NOTE | 2017-08-03 14:32 | EKG ---
Date Performed: 08/03/2017 Time Performed: 01:54:22 PTAGE: 56 years EKG: Atrial fibrillation with rapid ventricular response with PVC(s). Left axis deviation RBBB w ith left anterior fascicular block Possible inferior infarct - age undetermined Possible lateral infa rct - age undetermined Abnormal ECG NO PREVIOUS TRACING DOCTOR: Delgado Cruz Interpretating Date/Time 08/03/2017 14:31:01
[2017-08-03] MEDS ORDERED: CALCIUM CHLORIDE 10% SOLN 1 GRAM/10 ML SYR ONE (15:05)
[2017-08-03] MEDS ORDERED: SODIUM CHLOR 0.9% 250 ML INJ 250 ML IV ONE (15:15)
[2017-08-03] MEDS ORDERED: VANCOMYCIN INJ 1,000 MG in SODIUM CHLOR 0.9% 250 ML INJ 250 ML IV ONE (16:15)
[2017-08-03 16:18] LABS: HEMATOCRIT 25.4 % (39.0-51.0); HEMOGLOBIN 8.3 GM/DL (13.0-17.0)
[2017-08-03] MEDS: FLUCONAZOLE 200 MG PREMIX BAG 100 ML IV SCH (17:21)
[2017-08-03] MEDS ORDERED: NOREPINEPHRINE 8 MG/D5W 250 ML IV PRN ×2 (18:15)
[2017-08-03] MEDS: MICAFUNGIN INJ 150 MG in SODIUM CHLORIDE 0.9% INJ 100 ML IV SCH (20:41)
[2017-08-03] MEDS: CINACALCET HYDROCHLORIDE 30 MG TAB PO SCH (20:48)
[2017-08-03] MEDS: MIRTAZAPINE 15 MG TAB PO SCH (20:48)
[2017-08-03] MEDS: FLUoxetine HCL 20 MG CAP PO SCH (20:48)
[2017-08-04] VITALS (22 sets, daily range): BP systolic 91–145; BP diastolic 44–75; PULSE 81–145; RESP 24–26; TEMP 96–98; O2SAT 87–100
[2017-08-04] MEDS: PANTOPRAZOLE SODIUM 40 MG VIAL IV PUSH SCH ×3 (00:07→22:41)
[2017-08-04] MEDS: SODIUM BICARBONATE 8.4% INJ 75 MEQ in SODIUM CHLOR 0.45% 1000 ML INJ 1,000 ML IV SCH ×37 (00:07→23:16)
[2017-08-04] MEDS: RESP: ALBUTEROL 2.5 MG/IPRATROPIUM 0.5 MG NEB (SCH) NEB ×6 (00:12→20:51)
[2017-08-04] MEDS: EPINEPHrine 2 MG/D5W 250 ML IV PRN ×14 (01:23→23:09)
[2017-08-04] MEDS: NOREPINEPHRINE INJ 8 MG in SODIUM CHLOR 0.9% 250 ML INJ 242 ML IV PRN ×4 (01:23→19:36)
[2017-08-04] MEDS: PIPERACIL-TAZO 3.375 GM PREMIX 50 ML IV SCH ×4 (01:40→20:38)
[2017-08-04] MEDS: VALPROATE IV SCH ×6 (02:39→23:14)
[2017-08-04] MEDS: NS IV SCH ×6 (02:39→23:14)
[2017-08-04] MEDS: INSULIN NovoLIN REGULAR SUPPLEMENTAL SCALE SQ SCH ×7 (02:45→23:19)
[2017-08-04] MEDS: CHLORHEXIDINE GLUCONATE 2 % 1 PACK (2 CLOTHS) TOP SCH (04:00)
[2017-08-04] MEDS: DEXTROSE 10% INJ 1,000 ML IV SCH ×2 (05:30→13:18)
[2017-08-04 05:34] LABS: ALBUMIN 2.2 GM/DL (3.4-5.0); BICARBONATE 14.5 MEQ/L (21.0-32.0); BLOOD UREA NITROGEN 52 MG/DL (7-18); CALCIUM 10.6 MG/DL (8.5-10.1); CHLORIDE 93 MEQ/L (98-107); CREATININE 3.73 MG/DL (0.60-1.30); GLOMERULAR FILTRATION RATE 17 ML/MIN (>89); GLUCOSE,RANDOM 161 MG/DL (74-106); MAGNESIUM 1.4 MG/DL (1.5-2.5); SODIUM (NA) 135 MEQ/L (136-145)
[2017-08-04 05:45] LABS: ALKALINE PHOSPHATASE 152 U/L (45-117); ALT (GPT) 2207 U/L (12-78); AST (GOT) 1539 U/L (15-37)
[2017-08-04 05:46] LABS: PHOSPHORUS 7.5 MG/DL (2.5-4.9); RANDOM VANCOMYCIN 8.2 COMMENT; TOTAL BILIRUBIN ADULT 1.1 MG/DL (0.2-1.0); TOTAL PROTEIN 4.8 GM/DL (6.4-8.2)
[2017-08-04] MEDS: ARTIFICIAL TEARS OPTH SOLN 15 ML BTL EACH EYE SCH ×3 (06:00→22:25)
[2017-08-04] MEDS: HYDROCORTISONE SOD SUCCINATE 100 MG VIAL IV PUSH SCH ×3 (06:00→22:41)
[2017-08-04] MEDS: SEVELAMER CARBONATE 800 MG TAB PO SCH (08:00)
[2017-08-04] MEDS: VITAMIN B COMPLEX/VIT C TAB PO SCH (08:13)
[2017-08-04] MEDS: FOLIC ACID 1 MG TAB PO SCH (08:13)
[2017-08-04] MEDS: LORazepam 0.5 MG TAB PO SCH (08:13)
[2017-08-04] MEDS: SODIUM CHLORIDE 0.9% FLUSH 10 ML FLUSH IV FLUSH SCH ×3 (08:13→20:36)
[2017-08-04] MEDS: FERROUS SULFATE 325 MG (65 MG ELEMENTAL IRON) TAB PO SCH (08:13)
[2017-08-04] MEDS: ZIPRASIDONE HCL 20 MG CAP PO SCH (08:14)
[2017-08-04] MEDS: ASCORBIC ACID 500 MG TAB PO SCH (08:20)
[2017-08-04] MEDS: CHOLECALCIFEROL (VIT D3) 1000 UNIT TAB PO SCH (08:20)
[2017-08-04] MEDS: hydrOXYzine PAMOATE 25 MG CAP PO SCH ×4 (08:20→20:34)
[2017-08-04] MEDS: LACTIC ACID (AMMONIUM LACTATE) 12% LOTION 225 GM BTL TOPICAL SCH (08:20)
[2017-08-04] MEDS: DOCUSATE SODIUM 50 MG/SENNA 8.6 MG TAB PO SCH ×2 (08:20→19:53)
[2017-08-04] MEDS ORDERED: SODIUM BICARBONATE 8.4% INJ 50 MEQ/50 ML SYR IV PUSH ONE (08:45)
[2017-08-04] MEDS ORDERED: SODIUM CHLOR 0.9% 1000 ML INJ 1,000 ML IV ONE (09:00)
[2017-08-04] MEDS ORDERED: LACTATED RINGER'S 1000 ML INJ 1,000 ML IV ONE (09:00)
--- NOTE | 2017-08-04 09:09 | HHI.CCPN ---
Subjective Remarks/Hospital Course 56-year-old male with history of end-stage renal disease on hemodialysis Friday , , Friday, Schizophrenia, GERD, esophagitis, type 2 diabetes mellitus, hypertension, aortic stenosis status post TAVR in January of last year presents from [facility] rehab for evaluation of 3 episodes of coffee-ground emesis that occurred today. Patient states he then developed a severe epigastric pain. This has persisted throughout the afternoon. He reports nausea. He reports generalized weakness and not feeling well. He indicates that he is not making any urine.. He denies any chest pain or tightness. He has no difficulty breathing. He denies any shortness of breath. He was recently hospitalized in early June for severe anemia and GI bleed. He continues to take Plavix and aspirin. 08/02: Patient's respiratory rate in the 40s when seen this a.m. He denied chest pain or abdominal single was throwing up coffee-ground emesis continuously. Decision made to electively intubate. Already had NG tube placed. Prior to intubation, patient became acutely hypotensive with requiring norepinephrine drip at 50 mcg/min. Currently arousable and following commands. 08/03: now in refractory shock. on multiple vasopressors. acidosis is refractory. needs emergent dialysis, but too unstable to tolerate IHD: will need to place vascath for CRRT. taken to OR yesterday, extended right hemicolectomy, small bowel resected, left in discontinuity with open abdomen. + 21L over last 24h. discussed case with surgeon, and will wait until Friday to re -explore abdomen. Subjective 08/04: Febrile yesterday 106. Currently hypo-thermic. Plan to return to OR this a.m. if stable. Started on CRRT yesterday. Lactate currently 13.7. Currently receiving fluid. CVP is 10. CRRT adjusted see orders. Objective Vital Signs Date Time Temp Pulse Resp B/P (MAP) Pulse Ox O2 Delivery O2 Flow Rate FiO2 08/04/17 06:30 87 100 08/04/17 04:00 96.9 97 26 125/50 (75) 08/01/17 22:02 Room Air Intake and Output 08/04/17 08/04/17 08/05/17 08:00 16:00 00:00 Output Total 175 ml Balance -175 ml Result Diagram: 08/03/17 1538 08/04/17 0430 Other Results Microbiology Date/Time Source Procedure Growth Status 08/02/17 10:36 Blood Peripheral Aerobic Blood Culture - Preliminary NO GROWTH IN 1 DAY Resulted 08/02/17 10:36 Anaerobic Blood Culture - Preliminary Enterobacter Species Resulted 08/02/17 17:01 Fluid Peritoneal Fluid Fungal Smear - Final NO FUNGAL ELEMENTS SEEN. Resulted 08/02/17 17:01 Fluid Peritoneal Fluid Fungal Culture Pending Resulted 08/02/17 09:55 Sputum Endotracheal Gram Stain - Final Resulted 08/02/17 09:55 Sputum Culture - Preliminary S. Aureus Mrsa Resulted Imaging Last Impressions Chest X-Ray 08/03/17 0600 Signed Impressions: CONCLUSION: Lungs are grossly clear. Tubes and catheter in good position. Lower Extremity Ultrasound 08/02/17 0000 Signed Impressions: CONCLUSION: 1. The study is negative for bilateral lower extremity deep venous thrombosis. Chest CT 08/02/17 0000 Signed Impressions: CONCLUSION: 1. Bilateral lower lung consolidation and bilateral small pleural effusions. 2. No evidence of pneumomediastinum. 3. Pneumoperitoneum seen on the upper abdominal images; please see CT abdomen/ pelvis report. Abdomen/Pelvis CT 08/02/17 0000 Signed Impressions: CONCLUSION: 1. There is no evidence for bowel obstruction, adenopathy or aneurysm. 2. Large amount of free intraperitoneal air is identified, exact origin site u ncertain. In addition there is gallbladder wall emphysema noted circumferential ly with an air-fluid level within the gallbladder. Emphysematous cholecystitis with perforation would be the leading differential diagnostic consideration, ho wever bowel perforation is also in the differential diagnosis. 3. There is focal bowel wall thickening involving the mid transverse colon whi ch is nonspecific. An annular constricting neoplasm is difficult to exclude on the basis of this examination. 4. There is a small amount of free fluid in the mesentery, perihepatic and per isplenic regions. Abdomen X-Ray 08/01/17 0000 Signed Impressions: CONCLUSION: Negative KUB. Objective Remarks GENERAL: 56-year-old male currently orotracheally intubated, lying in bed 1335 SKIN: Pallor. Focused skin assessment warm/dry. Multiple ecchymotic markings on the abdomen. Patient also has multiple old ecchymotic lesions on the bilateral upper extremities extremities and abdomen. Left upper extremity AV fistula with positive thrill HEAD: Atraumatic. Normocephalic. EYES: Pupils equal and round about 4 mm bilaterally reactive to 3. No scleral icterus. No injection or drainage. Downward gaze ENT: No nasal bleeding or discharge. Mucous membranes moderately moist and pink. NG tube in place NECK: Trachea midline. large neck circumference prevents accurate assessment of JVD. CARDIOVASCULAR: RRR. S1, S2 predose 4. RESPIRATORY: tachypneic. Symmetrical chest excursion. Positive accessory muscle use. GASTROINTESTINAL: open abdomen. wound vac in place. moderate amount of serosanguinous drainage. no guarding. MUSCULOSKELETAL: No obvious deformities. 2+ peripheral edema. NEUROLOGICAL: RASS -3/-4. withdraws to pain weakly. opens eyes. does not follow commands. Urinary Catheter: No Assessment to: Continue Vascular Central Line Catheter: Yes Assessment to: Continue Date of Insertion: Aug 02, 2017 Line: Central Venous Catheter Side: Right Location: Internal, Jugular A/P Assessment and Plan Assessment: 56yM with ESRD and s/p colonic perforation with refractory distributive shock secondary to profound abdominal sepsis. unlikely to survive. will need emergent CRRT and ongoing vasopressor support. remains very critically ill. Neuro/Psych: Acute toxic metabolic encephalopathy secondary to underlying illness Schizophrenia Depression disorder NOS History of seizures Currently off all sedation while intubated Goal of RASS of 0 change currently on divalproex 500 mg IV twice daily. A.m. level pending Seizure precautions Ofirmev 1 g by mouth every 6 hours as needed fever On fluoxetine 20 mg daily, mirtazapine 30 mg a day, lorazepam 1 mg twice daily ziprasidone 100 mg twice daily and hydroxyzine 25 mg twice daily at home for psychiatric medications hold all PO meds while in discontinuity. CV: Refractory septic shock History of hypertension History of recent TAVR Coronary artery disease Lactate acidosis- worsening Elevated troponin Currently on norepinephrine at 25 mcg/min, epinephrine drip at 12 mcg/min and vasopressin drip at 0.04 U/min to maintain mean arterial pressure greater than or equal to 65 On D10 water at 50 cc an hour Lactic trending upward. Noted taking off fluid yesterday and FENCE E[employer]OR. This is been addressed. Bolused 2 L 1 now. CVP is 10. Holding clopidogrel 75 mg Aspirin 81 mg daily Resp: Acute hypoxic and hypercapnic respiratory failure ACV 24/700/100/% Ventilator bundle Albuterol/ipratropium aerosols every 4 hours with albuterol aerosols every 2 hours as needed dyspnea wean fio2 for goal spo2 > 90% Add epoprostenol aerosolized 50,000 ng/kg/min no weaning of mechanical ventilation until refractory shock improves trend abg Follow-up chest x-ray in a.m. 08/05 GI: Hematemesis History of grade C esophagitis History of Reza's esophagus History of erosive gastritis Hiatal hernia Gastroesophageal reflux disease Chronic constipation Hypoalbuminemia Shock Liver with elevated transaminases Severe acute protein calorie malnutrition s/p exploratory laparotomy 08/02 with extended right hemicolectomy/ileocecectomy, cholecystectomy, left in discontinuity, open abdomen with Dr. Kathy MG Exploratory laparotomy right and transverse colon resection, small bowel resection, cholecystectomy, omentectomy and packing of the abdomen with wound VAC, irrigation and wound VAC placement secondary to septic shock hypovolemic shock, hemodynamic instability, intestinal perforation wit perforation of the small intestine with massive spillage, gangrene of the last 4 feet of ileum, gangrene of the ascending colon and proximal transverse colon, gangrene of the gallbladder, peritonitis and sepsis. Currently on pantoprazole 40 mg IV twice daily strict NPO while in discontinuity. Follow-up ammonia level/coags, hepatic function, amylase lipase in a.m. : anuric at baseline. no indication for ortiz catheter. Endo: Secondary hyperparathyroidism Diabetes mellitus type 1.5 treat as diabetes mellitus type 1 Hypoglycemia At home on sliding scale insulin with Novulog 2-10 units Accu-Cheks every 4 hours. Currently in D10 water at 50 cc an hour. Last blood sugar in the 119 Currently hold cinacalcet at 60 mg by tube daily while n.p.o. TSH is 1.14 Renal: End-stage renal disease on hemodialysis Friday//Friday. Refractory acidosis -Continue CRRT. Serial BMP/magnesium phosphorus. -Attempt hypovolemic status with lactic acidosis until cleared Nephrology actively following Heme: Acute blood loss anemia? Coagulopathy elevated INR On ferrous sulfate 325 mg a mill twice daily at home. This currently on hold Transfuse 3 PRBCs and 3 FFP during this hospitalization. ID: Septic Shock secondary to gram-negative drew bacteremia Intra-abdominal sepsis MRSA sputum positive Placed empirically on piperacillin/tazobactam and vancomycin and micafungin Blood cultures 2, influenza and sputum all ordered 08/02 Infectious disease following Pertinent cultures 08/02 -sputum -MRSA 08/02 -blood cultures -gram-negative drew/enterococcus Peritoneal fluid/AFB, fungal and Gram stain all pending FEN: Hyper phosphatemia Hyponatremia Hypomagnesia hold while in discontinuity: Sevelamer 800 mg 3 times daily/home medication MSK: Holding cholecalciferol 2000 units daily Okay to hold vitamin C 5 mg twice daily Okay to hold Aracely-Annelise 1 tablet daily Access -Right IJ CVL day #3 placed 08/02 Left femoral hemodialysis catheter day #2 placed 08/03 Prophylaxis -GI -iv bid pantoprazole -DVT -SCD/holding pharmacological prophylaxis in light of acute hemorrhage Critical Care: The total critical care time was 35 minutes. Time to perform other separately billable procedures was not included in the critical care time. Joselo Grissom MD Aug 04, 2017 09:09
[2017-08-04] MEDS ORDERED: POTASSIUM CHLOR 20 MEQ PREMIX 100 ML ONE (09:13)
[2017-08-04] MEDS: VASOPRESSIN INJ 40 UNITS in DEXTROSE 5% IN WATER 100ML INJ 98 ML IV SCH ×2 (09:28)
[2017-08-04] MEDS: MUPIROCIN 2% OINT 1 APPLIC/GM SYR EACH NARE SCH ×2 (09:31→19:53)
[2017-08-04 09:40] LABS: HEMATOCRIT 28.2 % (39.0-51.0); HEMOGLOBIN 9.6 GM/DL (13.0-17.0); MEAN CELL VOLUME 88.7 FL (80.0-100.0); MEAN CORPUSCULAR HEMOGLOBIN 30.1 PG (27.0-34.0); MEAN CORPUSCULAR HGB CONC 33.9 % (32.0-36.0); MEAN PLATELET VOLUME 9.9 FL (7.0-11.0); PLATELET COUNT 58 TH/MM3 (150-450); RED BLOOD COUNT 3.18 MIL/MM3 (4.50-5.90); RED CELL DISTRIBUTION WIDTH 17.4 % (11.6-17.2); WHITE BLOOD COUNT 12.1 TH/MM3 (4.0-11.0)
[2017-08-04 09:56] LABS: INTERNATIONAL NORMALIZED RATIO 2.8 RATIO; PROTHROMBIN TIME - PATIENT 28.1 SEC (9.8-11.6)
[2017-08-04 09:59] LABS: BICARBONATE 16.6 MEQ/L (21.0-32.0); BLOOD UREA NITROGEN 47 MG/DL (7-18); CALCIUM 10.4 MG/DL (8.5-10.1); CHLORIDE 89 MEQ/L (98-107); CREATININE 3.33 MG/DL (0.60-1.30); GLOMERULAR FILTRATION RATE 19 ML/MIN (>89); GLUCOSE,RANDOM 171 MG/DL (74-106); SODIUM (NA) 134 MEQ/L (136-145)
[2017-08-04 10:00] LABS: PHENYTOIN (DILANTIN) LESS THAN 0.4 MCG/ML (10.0-20.0)
[2017-08-04] MEDS: CHLORHEXIDINE 0.12% (ORAL KIT) 15 ML CUP MT SCH ×2 (10:26→19:49)
[2017-08-04 10:31] LABS: BANDS 26 % (0-6); CORRECTED NUCLEATED RBC 4 /100 WBC (0-0); LYMPHOCYTES 6 % (9-44); MONOCYTES 18 % (0-8); NEUTROPHIL # MANUAL DIFF 9.2 TH/MM3 (1.8-7.7); NUCLEATED RED BLOOD CELL 4 (0-0); POLYS (SEG NEUTROPHILS) 50 % (16-70); TOXIC GRANULATION 1+ (NORMAL); TOXIC VACUOLATION PRESENT (NONE SEEN)
--- NOTE | 2017-08-04 10:51 | HHI.NPPN ---
Subjective Renal Failure: Chronic, End Stage Renal Disease Interval History Remains intubated, unresponsive. On CRRT with no fluid removal. On 4 pressors. D/W sister and brother. Has been made a DNR. (Zahra Aguilar) Review of Systems General General Remarks unable to obtain (Zahra Aguilar) Objective Data Data Vital Signs Date Time Temp Pulse Resp B/P (MAP) Pulse Ox O2 Delivery O2 Flow Rate FiO2 08/04/17 09:38 95 100 08/04/17 09:28 90 115/48 08/04/17 08:50 92 119/50 08/04/17 06:30 87 100 08/04/17 04:00 96.9 97 26 125/50 (75) 100 08/04/17 04:00 70 08/04/17 03:25 95 70 08/04/17 01:23 95 122/49 08/04/17 01:23 95 122/49 08/04/17 00:16 93 70 08/04/17 00:00 96.8 93 26 97/44 (61) 100 08/04/17 00:00 70 08/03/17 23:00 93 08/03/17 21:53 93 123/50 08/03/17 21:30 93 138/54 08/03/17 20:00 95 110/49 08/03/17 20:00 94.6 93 26 124/52 (76) 100 08/03/17 20:00 70 08/03/17 18:56 95 112/49 08/03/17 18:43 105 109/50 08/03/17 18:30 106 115/52 08/03/17 18:15 97 108/49 08/03/17 18:00 100 102/49 08/03/17 17:58 100 100/49 08/03/17 17:57 100 107/50 08/03/17 16:29 137 82/51 08/03/17 16:01 0 75 08/03/17 16:00 145 08/03/17 16:00 75 08/03/17 16:00 96.3 08/03/17 16:00 96.3 138 26 95/54 (68) 95 08/03/17 15:57 95.2 124 26 75/48 08/03/17 15:55 146 78/49 6/10/18 15:50 148 77/49 08/03/17 15:43 95.5 149 26 75/43 85 08/03/17 15:36 139 79/49 08/03/17 15:00 158 76/46 08/03/17 15:00 158 76/46 08/03/17 14:30 104 88/47 08/03/17 14:15 111 85/46 08/03/17 14:15 111 85/46 08/03/17 14:00 120 08/03/17 14:00 100.2 08/03/17 14:00 120 92/47 08/03/17 13:46 121 88/49 08/03/17 13:08 134 99/50 08/03/17 13:00 104.0 08/03/17 12:00 147 08/03/17 12:00 106.4 08/03/17 12:00 106.4 147 27 97/64 (75) 96 08/03/17 12:00 75 08/03/17 11:42 145 91/48 08/03/17 11:29 100 80 08/03/17 11:23 148 96/51 08/03/17 11:21 148 95/52 (Zahra Aguilar) -: 08/04/17 0907 08/04/17 0907 Imaging Last 72 hours Impressions Chest X-Ray 08/03/17 0600 Signed Impressions: CONCLUSION: Lungs are grossly clear. Tubes and catheter in good position. Chest X-Ray 08/02/17 0730 Signed Impressions: CONCLUSION: Right jugular line as above. Lower Extremity Ultrasound 08/02/17 0000 Signed Impressions: CONCLUSION: 1. The study is negative for bilateral lower extremity deep venous thrombosis. Chest CT 08/02/17 0000 Signed Impressions: CONCLUSION: 1. Bilateral lower lung consolidation and bilateral small pleural effusions. 2. No evidence of pneumomediastinum. 3. Pneumoperitoneum seen on the upper abdominal images; please see CT abdomen/ pelvis report. Abdomen/Pelvis CT 08/02/17 0000 Signed Impressions: CONCLUSION: 1. There is no evidence for bowel obstruction, adenopathy or aneurysm. 2. Large amount of free intraperitoneal air is identified, exact origin site u ncertain. In addition there is gallbladder wall emphysema noted circumferential ly with an air-fluid level within the gallbladder. Emphysematous cholecystitis with perforation would be the leading differential diagnostic consideration, ho wever bowel perforation is also in the differential diagnosis. 3. There is focal bowel wall thickening involving the mid transverse colon whi ch is nonspecific. An annular constricting neoplasm is difficult to exclude on the basis of this examination. 4. There is a small amount of free fluid in the mesentery, perihepatic and per isplenic regions. Tubes & Lines: Vas-Cath Tubes & Lines Comment A line, wound vac abd Drip Comment D10, vaso, levo, epi, phenylephrine (Zahra Aguilar. ARCHITECTURAL EXAMINER) Physical Exam General Appearance: No Acute Distress, Pale Appearance Remarks intubated and unresponsive (Zahra Aguilar ARCHITECTURAL EXAMINER) Pulmonary Resp Exam: Clear Bilaterally (Zahra Aguilar ARCHITECTURAL EXAMINER) Cardiology CV Exam: Regular, Normal Sinus Rhythm, Tachycardia (Zahra Aguilar. ARCHITECTURAL EXAMINER) Gastrointestinal/Abdomen GI Exam: Soft, Bowel Sounds Present, Bowel Sounds Absent (Post surgical abdomen ) GI Remarks wound vac abdomen (Zahra Aguilar ARCHITECTURAL EXAMINER) Musculoskeletal MS Exam: Joints Intact, Normal Tone, Unable to Ambulate (Zahra Aguilar. ARCHITECTURAL EXAMINER) Integumentary Skin Exam: Warm, Dry (Zahra Aguilar ARCHITECTURAL EXAMINER) Extremeties Extremities Exam: Pedal Pulses Palpable, Moderate Edema (Zahra Aguilar B. ARCHITECTURAL EXAMINER) Neurologic Neuro Exam: Unresponsive, Sedated (Zahra Aguilar ARCHITECTURAL EXAMINER) Assessment/Plan Discussed Condition With: Sibling Assessment Summary: End Stage Renal Disease Problem List: (1) End stage renal failure on dialysis ICD Codes: N18.6 - End stage renal failure on dialysis; Z99.2 - Dependence on renal dialysis Status: Chronic Plan: Typical TTS HD, clinically unstable Has been on CRRT, net fluid removal of zero. Continue to monitor electrolytes and fluid status per protocol. His overall prognosis is poor. Requiring 4 pressors at this time. Will notify family if he is too unstable for CRRT. Vascath left groin. (2) Sepsis ICD Codes: A41.9 - Sepsis, unspecified organism Plan: Lactic acid is 13 Temp 106 yesterday Culture reviewed, antibiotics noted Prognosis is poor (3) GI bleed ICD Codes: K92.2 - Gastrointestinal hemorrhage, unspecified Status: Acute Plan: s/p right hemicolectomy No further bleeding reported continue supportive care (4) Respiratory failure ICD Codes: J96.90 - Respiratory failure, unspecified, unspecified whether with hypoxia or hypercapnia Plan: Intubated (5) Hypertension ICD Codes: I10 - Hypertension Status: Acute Plan: Hypotensive, titrate pressors as needed, monitor blood pressure (6) DM (diabetes mellitus) ICD Codes: E11.9 - DM (diabetes mellitus) Status: Chronic Plan: Monitor blood glucose (Zahra Aguilar) Plan patient was seen and examined. Agree with above assessment and plan. Prognosis is guarded at this time. Dialysate changed to 4K. On bicarbonate containing fluid for replacement fluid. (Felix Andersen MD) Problem Qualifiers (1) GI bleed: Qualified Codes: K92.2 - Gastrointestinal hemorrhage, unspecified Zahra Aguilar Aug 04, 2017 10:51 Felix Andersen MD Aug 04, 2017 11:35
[2017-08-04] MEDS ORDERED: ADENOSINE IV SOLN 3 MG/ML 2 ML VIAL IV PUSH ONE (11:00)
[2017-08-04] MEDS ORDERED: METOPROLOL TARTRATE 5 MG/5 ML VIAL IV PUSH ONE (11:00)
[2017-08-04] MEDS ORDERED: POTASSIUM CHLOR 20 MEQ PREMIX 100 ML IV ONE (11:00)
[2017-08-04] MEDS ORDERED: ADENOSINE IV SOLN 3 MG/ML 2 ML VIAL ONE (11:01)
[2017-08-04] MEDS: EPOPROSTENOL NEB SOLUTION 50 NG/KG/MIN 100 ML NEB SCH ×2 (11:32)
[2017-08-04] MEDS: MAGNESIUM SULFATE 1 GM PREMIX 100 ML IV SCH ×2 (11:53→12:35)
[2017-08-04] MEDS ORDERED: DIGOXIN 0.5 MG/2 ML VIAL IV PUSH ONE (12:00)
[2017-08-04 12:01] LABS: HEMATOCRIT 25.1 % (39.0-51.0); HEMOGLOBIN 8.7 GM/DL (13.0-17.0); MEAN CELL VOLUME 87.8 FL (80.0-100.0); MEAN CORPUSCULAR HEMOGLOBIN 30.3 PG (27.0-34.0); MEAN CORPUSCULAR HGB CONC 34.5 % (32.0-36.0); MEAN PLATELET VOLUME 9.8 FL (7.0-11.0); PLATELET COUNT 52 TH/MM3 (150-450); RED BLOOD COUNT 2.86 MIL/MM3 (4.50-5.90); WHITE BLOOD COUNT 10.5 TH/MM3 (4.0-11.0)
[2017-08-04 12:23] LABS: MAGNESIUM 1.4 MG/DL (1.5-2.5); PHOSPHORUS 6.5 MG/DL (2.5-4.9)
[2017-08-04 12:26] LABS: TROPONIN I 0.31 NG/ML (0.02-0.05)
[2017-08-04 12:48] LABS: BANDS 50 % (0-6); CORRECTED NUCLEATED RBC 4 /100 WBC (0-0); LYMPHOCYTES 3 % (9-44); MONOCYTES 11 % (0-8); NUCLEATED RED BLOOD CELL 4 (0-0); POLYS (SEG NEUTROPHILS) 36 % (16-70); TOXIC GRANULATION 1+ (NORMAL); TOXIC VACUOLATION PRESENT (NONE SEEN)
[2017-08-04] MEDS: KCL/AQUEOUS SOLN Dialysate additive PRN (13:18)
[2017-08-04] MEDS: ESMOLOL DRIP INJ PREMIX 250 ML IV PRN ×3 (13:52→23:08)
[2017-08-04] MEDS: PHENYLEPHRINE HCL 160 MG/D5W 484 ML ADMIX IV PRN ×4 (14:05→20:45)
--- NOTE | 2017-08-04 14:22 | EKG ---
Date Performed: 08/04/2017 Time Performed: 11:07:26 PTAGE: 56 years EKG: Atrial fibrillation with rapid ventricular response. Severe right axis deviation Right bund le branch block Nonspecific ST and T wave abnormalities Abnormal ECG No significant change from prior electrocardiogram. PREVIOUS TRACING : 08/03/2017 01.54 DOCTOR: Peter Yadav Interpretating Date/Time 08/04/2017 14:20:01
[2017-08-04 15:40] LABS: HEMATOCRIT 26.3 % (39.0-51.0); HEMOGLOBIN 8.7 GM/DL (13.0-17.0); MEAN CELL VOLUME 88.8 FL (80.0-100.0); MEAN CORPUSCULAR HEMOGLOBIN 29.5 PG (27.0-34.0); MEAN CORPUSCULAR HGB CONC 33.2 % (32.0-36.0); MEAN PLATELET VOLUME 9.8 FL (7.0-11.0); PLATELET COUNT 49 TH/MM3 (150-450); RED BLOOD COUNT 2.96 MIL/MM3 (4.50-5.90); WHITE BLOOD COUNT 13.1 TH/MM3 (4.0-11.0)
--- NOTE | 2017-08-04 16:28 | HHI.IDPN ---
Subjective Subjective Remarks remains critical and unstable On pressors (dose is weaned down some) On CVVHD On 100% FiO2 hypothermic Antibiotics zosyn micafungin Allergies: Coded Allergies: fexofenadine (Unverified Adverse Reaction, Unknown, PT DENIES ALLERGY, 08/01) Pt denies allergy Objective . Vital Signs Date Time Temp Pulse Resp B/P (MAP) Pulse Ox O2 Delivery O2 Flow Rate FiO2 08/04/17 16:00 100 08/04/17 16:00 97.2 87 24 91/48 (62) 100 08/04/17 15:19 84 92/51 08/04/17 15:03 85 97/54 08/04/17 14:05 106 78/45 08/04/17 13:52 127 101/58 08/04/17 12:07 96.2 133 25 106/62 97 08/04/17 12:00 100 08/04/17 12:00 96.1 128 25 113/63 (80) 98 08/04/17 11:47 97 100 08/04/17 11:31 140 154/79 08/04/17 11:30 96.2 126 24 145/75 100 08/04/17 11:29 133 147/74 08/04/17 11:15 96.4 125 24 107/58 96 08/04/17 09:38 95 100 08/04/17 09:28 90 115/48 08/04/17 08:50 92 119/50 08/04/17 08:00 100 08/04/17 08:00 96.8 95 26 108/47 (67) 98 08/04/17 06:30 87 100 08/04/17 04:00 96.9 97 26 125/50 (75) 100 08/04/17 04:00 70 08/04/17 03:25 95 70 08/04/17 01:23 95 122/49 08/04/17 01:23 95 122/49 08/04/17 00:16 93 70 08/04/17 00:00 96.8 93 26 97/44 (61) 100 08/04/17 00:00 70 08/03/17 23:00 93 08/03/17 21:53 93 123/50 08/03/17 21:30 93 138/54 08/03/17 20:00 95 110/49 08/03/17 20:00 94.6 93 26 124/52 (76) 100 08/03/17 20:00 70 08/03/17 18:56 95 112/49 08/03/17 18:43 105 109/50 08/03/17 18:30 106 115/52 08/03/17 18:15 97 108/49 08/03/17 18:00 100 102/49 08/03/17 17:58 100 100/49 08/03/17 17:57 100 107/50 08/03/17 16:29 137 82/51 08/04/17 08/04/17 08/05/17 15:00 23:00 07:00 Intake Total 219 ml Balance 219 ml FFP 219 ml . peritoneal fluid: HEAVY MIXED AEROBIC AND ANAEROBIC INTESTINAL KIP. Laboratory Tests Test 08/02/17 19:38 08/03/17 01:30 08/03/17 08:24 08/03/17 15:38 Hemoglobin 9.7 GM/DL 10.2 GM/DL 9.5 GM/DL 8.3 GM/DL Hematocrit 29.4 % 31.3 % 29.1 % 25.4 % White Blood Count 4.1 TH/MM3 Red Blood Count 3.42 MIL/MM3 Mean Corpuscular Volume 91.5 FL Mean Corpuscular Hemoglobin 29.8 PG Mean Corpuscular Hemoglobin Concent 32.6 % Red Cell Distribution Width 18.2 % Platelet Count 195 TH/MM3 Mean Platelet Volume 10.2 FL Neutrophils (%) (Auto) 92.7 % Lymphocytes (%) (Auto) 4.4 % Monocytes (%) (Auto) 2.5 % Eosinophils (%) (Auto) 0.2 % Basophils (%) (Auto) 0.2 % Neutrophils # (Auto) 3.8 TH/MM3 Lymphocytes # (Auto) 0.2 TH/MM3 Monocytes # (Auto) 0.1 TH/MM3 Eosinophils # (Auto) 0.0 TH/MM3 Basophils # (Auto) 0.0 TH/MM3 CBC Comment AUTO DIFF Differential Total Cells Counted 100 Neutrophils % (Manual) 61 % Band Neutrophils % 28 % Lymphocytes % 9 % Monocytes % 1 % Neutrophils # (Manual) 3.7 TH/MM3 Metamyelocytes 1 % Nucleated Red Blood Cells 9 /100 WBC Differential Comment FINAL DIFF MANUAL Toxic Granulation 2+ Dohle Bodies PRESENT Platelet Estimate NORMAL Platelet Morphology Comment NORMAL Basophilic Stippling FAINT Ovalocytes 1+ Test 08/04/17 09:07 08/04/17 10:55 08/04/17 15:15 White Blood Count 12.1 TH/MM3 10.5 TH/MM3 13.1 TH/MM3 Red Blood Count 3.18 MIL/MM3 2.86 MIL/MM3 2.96 MIL/MM3 Hemoglobin 9.6 GM/DL 8.7 GM/DL 8.7 GM/DL Hematocrit 28.2 % 25.1 % 26.3 % Mean Corpuscular Volume 88.7 FL 87.8 FL 88.8 FL Mean Corpuscular Hemoglobin 30.1 PG 30.3 PG 29.5 PG Mean Corpuscular Hemoglobin Concent 33.9 % 34.5 % 33.2 % Red Cell Distribution Width 17.4 % 17.0 % 17.0 % Platelet Count 58 TH/MM3 52 TH/MM3 49 TH/MM3 Mean Platelet Volume 9.9 FL 9.8 FL 9.8 FL CBC Comment AUTO DIFF AUTO DIFF Differential Total Cells Counted 100 100 Neutrophils % (Manual) 50 % 36 % Band Neutrophils % 26 % 50 % Lymphocytes % 6 % 3 % Monocytes % 18 % 11 % Neutrophils # (Manual) 9.2 TH/MM3 9.0 TH/MM3 Nucleated Red Blood Cells 4 /100 WBC 4 /100 WBC Differential Comment FINAL DIFF MANUAL FINAL DIFF MANUAL Toxic Granulation 1+ 1+ Toxic Vacuolation PRESENT PRESENT Platelet Estimate LOW LOW Platelet Morphology Comment NORMAL NORMAL Laboratory Tests Test 08/02/17 19:38 08/03/17 01:30 08/03/17 08:24 08/03/17 15:38 Blood Urea Nitrogen 81 MG/DL 78 MG/DL Creatinine 6.31 MG/DL 5.94 MG/DL Random Glucose 49 MG/DL 71 MG/DL Calcium Level 9.0 MG/DL 9.1 MG/DL Phosphorus Level 8.4 MG/DL 8.0 MG/DL Magnesium Level 1.9 MG/DL 1.9 MG/DL Sodium Level 146 MEQ/L 147 MEQ/L Potassium Level 4.8 MEQ/L 5.4 MEQ/L Chloride Level 110 MEQ/L 113 MEQ/L Carbon Dioxide Level 16.6 MEQ/L 15.8 MEQ/L Anion Gap 19 MEQ/L 18 MEQ/L Estimat Glomerular Filtration Rate 9 ML/MIN 10 ML/MIN Lactic Acid Level 6.3 mmol/L 6.5 mmol/L 6.2 mmol/L 9.0 mmol/L Troponin I 0.33 NG/ML 0.36 NG/ML Total Protein 4.4 GM/DL Albumin 1.5 GM/DL Alkaline Phosphatase 146 U/L Aspartate Amino Transf (AST/SGOT) 1610 U/L Alanine Aminotransferase (ALT/SGPT) 1263 U/L Total Bilirubin 0.4 MG/DL Triglycerides Level 119 MG/DL Cholesterol Level LESS THAN 50 MG/DL LDL Cholesterol 10 MG/DL HDL Cholesterol 15.7 MG/DL Cholesterol/HDL Ratio 3.18 RATIO Test 08/04/17 04:30 08/04/17 05:15 08/04/17 09:07 08/04/17 10:55 Blood Urea Nitrogen 52 MG/DL 47 MG/DL Creatinine 3.73 MG/DL 3.33 MG/DL Random Glucose 161 MG/DL 171 MG/DL Total Protein 4.8 GM/DL Albumin 2.2 GM/DL Calcium Level 10.6 MG/DL 10.4 MG/DL Phosphorus Level 7.5 MG/DL 6.5 MG/DL Magnesium Level 1.4 MG/DL 1.4 MG/DL Alkaline Phosphatase 152 U/L Aspartate Amino Transf (AST/SGOT) 1539 U/L Alanine Aminotransferase (ALT/SGPT) 2207 U/L Total Bilirubin 1.1 MG/DL Sodium Level 135 MEQ/L 134 MEQ/L Potassium Level 3.7 MEQ/L 3.5 MEQ/L Chloride Level 93 MEQ/L 89 MEQ/L Carbon Dioxide Level 14.5 MEQ/L 16.6 MEQ/L Anion Gap 28 MEQ/L 28 MEQ/L Estimat Glomerular Filtration Rate 17 ML/MIN 19 ML/MIN Lactic Acid Level 13.7 mmol/L 14.0 mmol/L Lactate Dehydrogenase 564 U/L Ammonia 175 MCMOL/L Amylase Level 79 U/L Lipase 19 U/L Troponin I 0.31 NG/ML Test 08/04/17 15:15 Microbiology Date/Time Source Procedure Growth Status 08/02/17 10:36 Blood Peripheral Aerobic Blood Culture - Preliminary NO GROWTH IN 2 DAYS Resulted 08/02/17 10:36 Anaerobic Blood Culture - Preliminary Enterobacter Species Resulted 08/02/17 10:30 Blood Peripheral Aerobic Blood Culture - Preliminary NO GROWTH IN 2 DAYS Resulted 08/02/17 10:30 Anaerobic Blood Culture - Preliminary Gram Positive Rods Resulted 08/02/17 17:01 Fluid Peritoneal Fluid Fungal Smear - Final NO FUNGAL ELEMENTS SEEN. Resulted 08/02/17 17:01 Fluid Peritoneal Fluid Fungal Culture Pending Resulted 08/02/17 17:01 Fluid Peritoneal Fluid Acid Fast Stain Pending Received 08/02/17 17:01 Fluid Peritoneal Fluid Mycobacterial Culture Pending Received 08/02/17 17:01 Fluid Peritoneal Fluid Gram Stain - Final Complete 08/02/17 17:01 Fluid Peritoneal Fluid Body Fluid Culture - Final Complete 08/02/17 09:55 Sputum Endotracheal Gram Stain - Final Complete 08/02/17 09:55 Sputum Culture - Final S. Aureus Mrsa Complete 08/02/17 09:55 Nasal Aspirate Influenza Types A,B Antigen (FRANCESCO) - Final NEGATIVE FOR FLU A AND B ANTIGEN.... Complete Imaging Last Impressions Chest X-Ray 08/03/17 0600 Signed Impressions: CONCLUSION: Lungs are grossly clear. Tubes and catheter in good position. Lower Extremity Ultrasound 08/02/17 0000 Signed Impressions: CONCLUSION: 1. The study is negative for bilateral lower extremity deep venous thrombosis. Chest CT 08/02/17 0000 Signed Impressions: CONCLUSION: 1. Bilateral lower lung consolidation and bilateral small pleural effusions. 2. No evidence of pneumomediastinum. 3. Pneumoperitoneum seen on the upper abdominal images; please see CT abdomen/ pelvis report. Abdomen/Pelvis CT 08/02/17 0000 Signed Impressions: CONCLUSION: 1. There is no evidence for bowel obstruction, adenopathy or aneurysm. 2. Large amount of free intraperitoneal air is identified, exact origin site u ncertain. In addition there is gallbladder wall emphysema noted circumferential ly with an air-fluid level within the gallbladder. Emphysematous cholecystitis with perforation would be the leading differential diagnostic consideration, ho wever bowel perforation is also in the differential diagnosis. 3. There is focal bowel wall thickening involving the mid transverse colon whi ch is nonspecific. An annular constricting neoplasm is difficult to exclude on the basis of this examination. 4. There is a small amount of free fluid in the mesentery, perihepatic and per isplenic regions. Abdomen X-Ray 08/01/17 0000 Signed Impressions: CONCLUSION: Negative KUB. Physical Exam CONSTITUTIONAL/GENERAL: This is an adequately nourished patient, in no apparent distress. TUBES/LINES/DRAINS: L fem Vas cath in place AV fistula in place LUE SKIN: No jaundice, rashes, or lesions. Ecchymoses on upper extremities. No wounds seen anteriorly. Skin temperature appropriate. Not diaphoretic. CARDIOVASCULAR: Regular rate and rhythm without murmurs, gallops, or rubs. No JVD. Peripheral pulses symmetric. RESPIRATORY/CHEST: Symmetric, unlabored respirations. Clear to auscultation. Breath sounds equal bilaterally. No wheezes, rales, or rhonchi. GASTROINTESTINAL: Abdomen tight, distended OPen incision with wound Vac in place No hepato-splenomegaly, or palpable masses. No bowel sounds GENITOURINARY: Without palpable bladder distension. Lara catheter in place. No UOP MUSCULOSKELETAL: Extremities without clubbing, cyanosis, + 3-4 + edema. No mottling or clubbing. feet are cold, refill markedly decreased, + cyanosis LYMPHATICS: No palpable cervical or supraclavicular adenopathy. NEUROLOGICAL: sedated PSYCHIATRIC: unable to assess Assessment & Plan Remarks Septic shock with , hemodynamic instability, Fecal peritonitis Perforation of the small intestine with massive spillage, gangrene of the last 4 feet of ileum, gangrene of the ascending colon and proximal transverse colon, gangrene of the gallbladder, - sp exploratory laparotomy right and transverse colon resection, small bowel resection, cholecystectomy, omentectomy and packing of the abdomen with wound VAC, irrigation and wound VAC placement. Enterobacter bactremia Acute VDRF MRSA in sputum Preexistyin ARF Prognosis is poor Pt is criticlly ill and unstable cont zosyn renally adjusted redose vancomycin per levels cont micafungin FU cultures Nettie Dove MD Aug 04, 2017 16:28
[2017-08-04] MEDS ORDERED: VANCOMYCIN INJ 1,000 MG in SODIUM CHLOR 0.9% 250 ML INJ 250 ML IV ONE (16:30)
--- NOTE | 2017-08-04 17:30 | PD.CAR.PN ---
CVT Progress Note Subjective/Hospital Course: 56-year-old male with gangrenous right colon and perforated gangrenous small intestine as well as the gallbladder status post colectomy cholecystectomy and wound VAC placement Patient remains very critical Hemodynamically unstable on vasopressin/Levophed/Maximo-Synephrine and dopamine. Despite all the support patient is gradually deteriorating Remains acidotic with high lactic acid This patient has negligent chance of meaningful recovery and despite all the measures he appears to be in the irreversible systemic shock. I do not believe there is a reasonable chance of reaching points of resuscitation necessary for the patient to overcome this Should patient improved some I will take him back to the operating room for washout removal of the wound VAC and closure however right now patient is not stable enough for any of this Heroic attempts by the medical head operator team are greatly appreciated and respected Continue to follow with you 08/04/2017 Patient somewhat improved overnight but still remains hemodynamically unstable On vasopressin/Levophed/Maximo-Synephrine/dopamine Abdomen is soft and patulous and wound VAC drainage is serosanguineous Patient at this point is not stable enough to undergo second-look operation however considering that he is improving second look operation is scheduled for tomorrow at which point in best case scenario , he will be washed out abdomen closed and bowel reconnected. This is provided that we do not find more necrotic bowel at which point of course further resection of the bowel would be necessary Overall survival in this situation is very low but will make every effort to achieve positive outcome Tentatively planning second-look operation tomorrow Objective: Vital Signs Date Time Temp Pulse Resp B/P (MAP) Pulse Ox O2 Delivery O2 Flow Rate FiO2 08/04/17 16:28 95 100 08/04/17 16:00 100 08/04/17 16:00 97.2 87 24 91/48 (62) 100 08/04/17 16:00 87 08/04/17 15:19 84 92/51 08/04/17 15:03 85 97/54 08/04/17 14:25 81 08/04/17 14:05 106 78/45 08/04/17 14:00 128 08/04/17 13:52 127 101/58 08/04/17 12:07 96.2 133 25 106/62 97 08/04/17 12:00 96.2 6/11/18 12:00 128 08/04/17 12:00 100 08/04/17 12:00 96.1 128 25 113/63 (80) 98 08/04/17 11:47 97 100 08/04/17 11:31 140 154/79 08/04/17 11:30 96.2 126 24 145/75 100 08/04/17 11:29 133 147/74 08/04/17 11:15 96.4 125 24 107/58 96 08/04/17 11:00 145 08/04/17 10:45 125 08/04/17 10:00 93 08/04/17 09:38 95 100 08/04/17 09:28 90 115/48 08/04/17 08:50 92 119/50 08/04/17 08:00 100 08/04/17 08:00 95 08/04/17 08:00 96.8 95 26 108/47 (67) 98 08/04/17 06:30 87 100 08/04/17 04:00 96.9 97 26 125/50 (75) 100 08/04/17 04:00 70 08/04/17 03:25 95 70 08/04/17 01:23 95 122/49 08/04/17 01:23 95 122/49 08/04/17 00:16 93 70 08/04/17 00:00 96.8 93 26 97/44 (61) 100 08/04/17 00:00 70 08/03/17 23:00 93 08/03/17 21:53 93 123/50 08/03/17 21:30 93 138/54 08/03/17 20:00 95 110/49 08/03/17 20:00 94.6 93 26 124/52 (76) 100 08/03/17 20:00 70 08/03/17 18:56 95 112/49 08/03/17 18:43 105 109/50 08/03/17 18:30 106 115/52 08/03/17 18:15 97 108/49 08/03/17 18:00 100 102/49 08/03/17 17:58 100 100/49 08/03/17 17:57 100 107/50 Labs: Laboratory Tests Test 08/04/17 08:55 08/04/17 09:07 08/04/17 10:55 08/04/17 15:15 Blood Gas Puncture Site ART LINE Blood Gas Patient Temperature 98.6 Blood Gas HCO3 17 mmol/L (22-26) Blood Gas Base Excess -6.4 mmol/L (-2-2) Blood Gas Oxygen Saturation 98 % (90-100) Arterial Blood pH 7.42 (7.380-7.420) Arterial Blood Partial Pressure CO2 27 mmHg (38-42) Arterial Blood Partial Pressure O2 250 mmHg (61-120) Arterial Blood Oxygen Content 13.7 Vol % (12.0-20.0) Arterial Blood Carboxyhemoglobin 1.0 % (0-4) Arterial Blood Methemoglobin 1.1 % (0-2) Blood Gas Hemoglobin 9.6 G/DL (12.0-16.0) Oxygen Delivery Device VENTILATOR Blood Gas Ventilator Setting AC24/700/+10 Blood Gas Inspired Oxygen 100 % White Blood Count 12.1 TH/MM3 (4.0-11.0) 10.5 TH/MM3 (4.0-11.0) 13.1 TH/MM3 (4.0-11.0) Red Blood Count 3.18 MIL/MM3 (4.50-5.90) 2.86 MIL/MM3 (4.50-5.90) 2.96 MIL/MM3 (4.50-5.90) Hemoglobin 9.6 GM/DL (13.0-17.0) 8.7 GM/DL (13.0-17.0) 8.7 GM/DL (13.0-17.0) Hematocrit 28.2 % (39.0-51.0) 25.1 % (39.0-51.0) 26.3 % (39.0-51.0) Mean Corpuscular Volume 88.7 FL (80.0-100.0) 87.8 FL (80.0-100.0) 88.8 FL (80.0-100.0) Mean Corpuscular Hemoglobin 30.1 PG (27.0-34.0) 30.3 PG (27.0-34.0) 29.5 PG (27.0-34.0) Mean Corpuscular Hemoglobin Concent 33.9 % (32.0-36.0) 34.5 % (32.0-36.0) 33.2 % (32.0-36.0) Red Cell Distribution Width 17.4 % (11.6-17.2) 17.0 % (11.6-17.2) 17.0 % (11.6-17.2) Platelet Count 58 TH/MM3 (150-450) 52 TH/MM3 (150-450) 49 TH/MM3 (150-450) Mean Platelet Volume 9.9 FL (7.0-11.0) 9.8 FL (7.0-11.0) 9.8 FL (7.0-11.0) CBC Comment AUTO DIFF AUTO DIFF Differential Total Cells Counted 100 100 Neutrophils % (Manual) 50 % (16-70) 36 % (16-70) Band Neutrophils % 26 % (0-6) 50 % (0-6) Lymphocytes % 6 % (9-44) 3 % (9-44) Monocytes % 18 % (0-8) 11 % (0-8) Neutrophils # (Manual) 9.2 TH/MM3 (1.8-7.7) 9.0 TH/MM3 (1.8-7.7) Nucleated Red Blood Cells 4 /100 WBC (0-0) 4 /100 WBC (0-0) Differential Comment FINAL DIFF MANUAL FINAL DIFF MANUAL Toxic Granulation 1+ (NORMAL) 1+ (NORMAL) Toxic Vacuolation PRESENT (NONE SEEN) PRESENT (NONE SEEN) Platelet Estimate LOW (NORMAL) LOW (NORMAL) Platelet Morphology Comment NORMAL (NORMAL) NORMAL (NORMAL) Prothrombin Time 28.1 SEC (9.8-11.6) Prothromb Time International Ratio 2.8 RATIO Activated Partial Thromboplast Time 72.0 SEC (24.3-30.1) Fibrinogen 607 mg/dL (227-377) Blood Urea Nitrogen 47 MG/DL (7-18) Creatinine 3.33 MG/DL (0.60-1.30) Random Glucose 171 MG/DL (74-106) Calcium Level 10.4 MG/DL (8.5-10.1) Lactate Dehydrogenase 564 U/L (87-241) Sodium Level 134 MEQ/L (136-145) Potassium Level 3.5 MEQ/L (3.5-5.1) Chloride Level 89 MEQ/L (98-107) Carbon Dioxide Level 16.6 MEQ/L (21.0-32.0) Anion Gap 28 MEQ/L (5-15) Estimat Glomerular Filtration Rate 19 ML/MIN (>89) Lactic Acid Level 14.0 mmol/L (0.4-2.0) 14.5 mmol/L (0.4-2.0) Ammonia 175 MCMOL/L (11-32) Amylase Level 79 U/L (25-115) Lipase 19 U/L (73-393) Phenytoin (Dilantin) Level LESS THAN 0.4 MCG/ML Phosphorus Level 6.5 MG/DL (2.5-4.9) Magnesium Level 1.4 MG/DL (1.5-2.5) Troponin I 0.31 NG/ML (0.02-0.05) Result Diagram: 08/04/17 1515 08/04/17 [id number] Mauro Campos MD Aug 04, 2017 17:30
--- NOTE | 2017-08-04 17:35 | ECHRPT ---
Indication: HEART FAILURE CONCLUSIONS Normal left ventricular size. Mild concentric left ventricular hypertrophy. The left ventricular systolic function is low normal with an estimated ejection fraction in the rang e of 50- 55%. The left atrial size is [id number] dilated. The interatrial septum not well visualized. The aortic root and proximal ascending aorta are not well visualized. Severe mitral annular calcification. Mild mitral valve stenosis. 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 Aortic valve area is 1.4 cm. Aortic valve mean gradient is 8 mmHg. No aortic regurg. There is trace tricuspid valve regurgitation. The estimated pulmonary arterial pressure is 40.9 mmHg. The pulmonary valve is not well visualized. The inferior vena cava was not well visualized. BP: 78 / 45 HR: 106 Rhythm: Sinus MEASUREMENTS (Male / Female) Normal Values Technical Quality:Fair 2D ECHO LV Diastolic Diameter PLAX 4.7 cm 4.2 - 5.9 / 3.9 - 5.3 cm LV Systolic Diameter PLAX 3.6 cm IVS Diastolic Thickness 1.1 cm 0.6 - 1.0 / 0.6 - 0.9 cm LVPW Diastolic Thickness 1.1 cm 0.6 - 1.0 / 0.6 - 0.9 cm LV Relative Wall Thickness 0.5 RV Internal Dim ED PLAX 4.0 cm LVOT Diameter 2.0 cm Aortic Root Diameter 3.7 cm LA Systolic Diameter LX 4.8 cm 3.0 - 4.0 / 2.7 - 3.8 cm DOPPLER AV Peak Velocity 175.0 cm/s AV Peak Gradient 12.3 mmHg AV Mean Gradient 8.0 mmHg AV Velocity Time Integral 25.4 cm LVOT Peak Velocity 60.9 cm/s LVOT Peak Gradient 1.5 mmHg LVOT Velocity Time Integral 11.7 cm AV Area Cont Eq vti 1.4 cm AV Area Cont Eq pk 1.1 cm MV Peak Velocity 196.6 cm/s MV Peak Gradient 15.5 mmHg MV Mean Velocity 130.6 cm/s MV Mean Gradient 7.8 mmHg MV Area PHT 3.1 cm Mitral E Point Velocity 113.0 cm/s TR Peak Velocity 278.0 cm/s TR Peak Gradient 31.0 mmHg Right Atrial Pressure 10.0 mmHg Pulmonary Artery Systolic Pressu 40.9 mmHg Right Ventricular Systolic Press 40.9 mmHg PV Peak Velocity 66.2 cm/s PV Peak Gradient 1.8 mmHg FINDINGS LEFT VENTRICLE Normal left ventricular size. Mild concentric left ventricular hypertrophy. The left ventricular systolic function is low normal with an estimated ejection fraction in the rang e of 50- 55%. RIGHT VENTRICLE Normal right ventricular size and systolic function. LEFT ATRIUM The left atrial size is [id number] dilated. RIGHT ATRIUM The right atrial size is normal. ATRIAL SEPTUM The interatrial septum not well visualized. AORTA The aortic root and proximal ascending aorta are not well visualized. MITRAL VALVE Severe mitral annular calcification. Mild mitral valve stenosis. 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 Aortic valve area is 1.4 cm. Aortic valve mean gradient is 8 mmHg. No aortic regurg. TRICUSPID VALVE There is trace tricuspid valve regurgitation. The estimated pulmonary arterial pressure is 40.9 mmHg. PULMONARY VALVE The pulmonary valve is not well visualized. VESSELS The inferior vena cava was not well visualized. PERICARDIUM No pericardial effusion. Nasir Ireland MD (Electronically Signed) Final Date:04 August 2017 17:34
--- NOTE | 2017-08-04 18:38 | HHI.GIFU ---
Subjective Remarks Pt remains critically ill Sedated, intubated, on multiple pressors Wound vac to mid abdomen NG to LIWS with continued coffee ground emesis (Emily Guajardo) Objective Vitals I&O Vital Signs Date Time Temp Pulse Resp B/P (MAP) Pulse Ox O2 Delivery O2 Flow Rate FiO2 08/04/17 17:31 86 97/55 08/04/17 16:28 95 100 08/04/17 16:00 100 08/04/17 16:00 97.2 87 24 91/48 (62) 100 08/04/17 16:00 87 08/04/17 15:19 84 92/51 08/04/17 15:03 85 97/54 08/04/17 14:25 81 08/04/17 14:05 106 78/45 08/04/17 14:00 128 08/04/17 13:52 127 101/58 08/04/17 12:07 96.2 133 25 106/62 97 08/04/17 12:00 96.2 08/04/17 12:00 128 08/04/17 12:00 100 08/04/17 12:00 96.1 128 25 113/63 (80) 98 08/04/17 11:47 97 100 08/04/17 11:31 140 154/79 08/04/17 11:30 96.2 126 24 145/75 100 08/04/17 11:29 133 147/74 08/04/17 11:15 96.4 125 24 107/58 96 08/04/17 11:00 145 08/04/17 10:45 125 08/04/17 10:00 93 08/04/17 09:38 95 100 08/04/17 09:28 90 115/48 08/04/17 08:50 92 119/50 08/04/17 08:00 100 08/04/17 08:00 95 08/04/17 08:00 96.8 95 26 108/47 (67) 98 08/04/17 06:30 87 100 08/04/17 04:00 96.9 97 26 125/50 (75) 100 08/04/17 04:00 70 08/04/17 03:25 95 70 08/04/17 01:23 95 122/49 08/04/17 01:23 95 122/49 08/04/17 00:16 93 70 08/04/17 00:00 96.8 93 26 97/44 (61) 100 08/04/17 00:00 70 08/03/17 23:00 93 08/03/17 21:53 93 123/50 08/03/17 21:30 93 138/54 08/03/17 20:00 95 110/49 08/03/17 20:00 94.6 93 26 124/52 (76) 100 08/03/17 20:00 70 08/03/17 18:56 95 112/49 08/03/17 18:43 105 109/50 I/O 08/03/17 08/03/17 08/03/17 08/04/17 08/04/17 08/04/17 07:00 15:00 23:00 07:00 15:00 23:00 Intake Total 30491.5 ml 2235 ml 2350 ml 3819 ml Output Total 50 ml 500 ml 1275 ml 175 ml 175 ml Balance 16253.5 ml 1735 ml 1075 ml -175 ml 3819 ml -175 ml IV Total 24461.5 ml 2235 ml 1700 ml 3600 ml Packed Cells 400 ml FFP 219 ml Blood Product IV Normal Saline Flush 250 ml Output Urine Total 0 ml 0 ml 0 ml 0 ml Gastric Drainage Total 50 ml 600 ml 125 ml 100 ml Drainage Total 500 ml 675 ml 50 ml 75 ml # Bowel Movements 0 0 0 Laboratory Laboratory Tests Test 08/04/17 04:30 08/04/17 05:15 08/04/17 08:55 08/04/17 09:07 Blood Urea Nitrogen 52 47 Creatinine 3.73 3.33 Random Glucose 161 171 Total Protein 4.8 Albumin 2.2 Calcium Level 10.6 10.4 Phosphorus Level 7.5 Magnesium Level 1.4 Alkaline Phosphatase 152 Aspartate Amino Transf (AST/SGOT) 1539 Alanine Aminotransferase (ALT/SGPT) 2207 Total Bilirubin 1.1 Sodium Level 135 134 Potassium Level 3.7 3.5 Chloride Level 93 89 Carbon Dioxide Level 14.5 16.6 Anion Gap 28 28 Estimat Glomerular Filtration Rate 17 19 Random Vancomycin Level 8.2 Lactic Acid Level 13.7 14.0 Blood Gas Puncture Site ART LINE Blood Gas Patient Temperature 98.6 Blood Gas HCO3 17 Blood Gas Base Excess -6.4 Blood Gas Oxygen Saturation 98 Arterial Blood pH 7.42 Arterial Blood Partial Pressure CO2 27 Arterial Blood Partial Pressure O2 250 Arterial Blood Oxygen Content 13.7 Arterial Blood Carboxyhemoglobin 1.0 Arterial Blood Methemoglobin 1.1 Blood Gas Hemoglobin 9.6 Oxygen Delivery Device VENTILATOR Blood Gas Ventilator Setting AC24/700/+10 Blood Gas Inspired Oxygen 100 White Blood Count 12.1 Red Blood Count 3.18 Hemoglobin 9.6 Hematocrit 28.2 Mean Corpuscular Volume 88.7 Mean Corpuscular Hemoglobin 30.1 Mean Corpuscular Hemoglobin Concent 33.9 Red Cell Distribution Width 17.4 Platelet Count 58 Mean Platelet Volume 9.9 CBC Comment AUTO DIFF Differential Total Cells Counted 100 Neutrophils % (Manual) 50 Band Neutrophils % 26 Lymphocytes % 6 Monocytes % 18 Neutrophils # (Manual) 9.2 Nucleated Red Blood Cells 4 Differential Comment FINAL DIFF MANUAL Toxic Granulation 1+ Toxic Vacuolation PRESENT Platelet Estimate LOW Platelet Morphology Comment NORMAL Prothrombin Time 28.1 Prothromb Time International Ratio 2.8 Activated Partial Thromboplast Time 72.0 Fibrinogen 607 Lactate Dehydrogenase 564 Ammonia 175 Amylase Level 79 Lipase 19 Phenytoin (Dilantin) Level LESS THAN 0.4 Test 08/04/17 10:55 08/04/17 15:15 White Blood Count 10.5 13.1 Red Blood Count 2.86 2.96 Hemoglobin 8.7 8.7 Hematocrit 25.1 26.3 Mean Corpuscular Volume 87.8 88.8 Mean Corpuscular Hemoglobin 30.3 29.5 Mean Corpuscular Hemoglobin Concent 34.5 33.2 Red Cell Distribution Width 17.0 17.0 Platelet Count 52 49 Mean Platelet Volume 9.8 9.8 CBC Comment AUTO DIFF Differential Total Cells Counted 100 Neutrophils % (Manual) 36 Band Neutrophils % 50 Lymphocytes % 3 Monocytes % 11 Neutrophils # (Manual) 9.0 Nucleated Red Blood Cells 4 Differential Comment FINAL DIFF MANUAL Toxic Granulation 1+ Toxic Vacuolation PRESENT Platelet Estimate LOW Platelet Morphology Comment NORMAL Phosphorus Level 6.5 Magnesium Level 1.4 Troponin I 0.31 Lactic Acid Level 14.5 Date/Time Source Procedure Growth Status 08/02/17 10:36 Blood Peripheral Aerobic Blood Culture - Preliminary NO GROWTH IN 2 DAYS Resulted 08/02/17 10:36 Anaerobic Blood Culture - Preliminary Enterobacter Species Resulted 08/02/17 17:01 Fluid Peritoneal Fluid Fungal Smear - Final NO FUNGAL ELEMENTS SEEN. Resulted 08/02/17 17:01 Fluid Peritoneal Fluid Fungal Culture Pending Resulted 08/02/17 09:55 Sputum Endotracheal Gram Stain - Final Complete 08/02/17 09:55 Sputum Culture - Final S. Aureus Mrsa Complete Imaging Last Impressions Chest X-Ray 08/03/17 0600 Signed Impressions: CONCLUSION: Lungs are grossly clear. Tubes and catheter in good position. Lower Extremity Ultrasound 08/02/17 0000 Signed Impressions: CONCLUSION: 1. The study is negative for bilateral lower extremity deep venous thrombosis. Chest CT 08/02/17 Signed Impressions: CONCLUSION: 1. Bilateral lower lung consolidation and bilateral small pleural effusions. 2. No evidence of pneumomediastinum. 3. Pneumoperitoneum seen on the upper abdominal images; please see CT abdomen/ pelvis report. Abdomen/Pelvis CT 08/02/17 Signed Impressions: CONCLUSION: 1. There is no evidence for bowel obstruction, adenopathy or aneurysm. 2. Large amount of free intraperitoneal air is identified, exact origin site u ncertain. In addition there is gallbladder wall emphysema noted circumferential ly with an air-fluid level within the gallbladder. Emphysematous cholecystitis with perforation would be the leading differential diagnostic consideration, ho wever bowel perforation is also in the differential diagnosis. 3. There is focal bowel wall thickening involving the mid transverse colon whi ch is nonspecific. An annular constricting neoplasm is difficult to exclude on the basis of this examination. 4. There is a small amount of free fluid in the mesentery, perihepatic and per isplenic regions. Abdomen X-Ray 08/01/17 Signed Impressions: CONCLUSION: Negative KUB. Physical Exam HEENT: Normocephalic; atraumatic CHEST: Respirations synchronized with vent via ETT CARDIAC: RRR ABDOMEN: Round, wound vac to open incision in mid abdomen, NG to LIWS with 100 mL of coffee ground emesis EXTREMITIES: Generalized edema SKIN: Pale no rash; no jaundice. CAFETERIA OR LUNCHROOM CHECKER: Unresponsive (Emily Guajardo CHANNEL DIRECTOR) Assessment and Plan Plan Assessment: - Coffee ground emesis on admission with complaints of severe epigastric and abdominal pain, CT findings revealing fee air under diaphragm and diffusely throughout the abdomen. S/P exploratory laparotomy right and transverse colon resection, small bowel resection, cholecystectomy, omentectomy, and packing of the abdomen with wound VAC. Pt remains critically ill, sedated, intubated, and on multiple pressors. NG continues to have coffee ground emesis, 100 mL at present from 7 am this morning, currently it is almost 7 pm. According to surgeon notes, tentatively planning on second-look operation tomorrow - Elevated LFTs- likely secondary to shock liver Plan: Further recommendations per surgery Too unstable for endoscopic procedures Our service will sign off, please reconsult as needed Pt has been seen and examined by myself and Dr. Herrera and this note is written on his behalf (Emily Guajardo) Physician Comments As above, please notify us if needed again. (Deric Herrera MD) Emily Guajardo Aug 04, 2017 18:38 Deric Herrera MD Aug 05, 2017 09:37
[2017-08-04] MEDS: MIRTAZAPINE 15 MG TAB PO SCH (20:35)
[2017-08-04] MEDS: MICAFUNGIN INJ 150 MG in SODIUM CHLORIDE 0.9% INJ 100 ML IV SCH (20:37)
[2017-08-04] MEDS: NOREPINEPHRINE INJ 16 MG in SODIUM CHLOR 0.9% 250 ML INJ 234 ML IV PRN (21:29)
[2017-08-05] VITALS (9 sets, daily range): BP systolic 97–127; BP diastolic 41–72; PULSE 75–83; RESP 24; TEMP 96–97.6; O2SAT 96–100
[2017-08-05] MEDS: MORPHINE SULFATE 4 MG/ML INJ IV PUSH PRN (00:21)
[2017-08-05 00:25] LABS: HEMATOCRIT 27.7 % (39.0-51.0); HEMOGLOBIN 9.2 GM/DL (13.0-17.0)
[2017-08-05] MEDS: RESP: ALBUTEROL 2.5 MG/IPRATROPIUM 0.5 MG NEB (SCH) NEB ×3 (00:26→09:03)
[2017-08-05] MEDS: SODIUM BICARBONATE 8.4% INJ 75 MEQ in SODIUM CHLOR 0.45% 1000 ML INJ 1,000 ML IV SCH ×17 (00:32→12:30)
[2017-08-05] MEDS: PIPERACIL-TAZO 3.375 GM PREMIX 50 ML IV SCH ×2 (01:20→09:10)
[2017-08-05] MEDS: KCL/AQUEOUS SOLN Dialysate additive PRN (02:41)
[2017-08-05] MEDS: EPOPROSTENOL NEB SOLUTION 50 NG/KG/MIN 100 ML NEB SCH ×2 (02:55)
[2017-08-05] MEDS: fentaNYL DRIP 250 ML IV PRN (02:57)
[2017-08-05] MEDS: CHLORHEXIDINE GLUCONATE 2 % 1 PACK (2 CLOTHS) TOP SCH (03:25)
[2017-08-05] MEDS: INSULIN NovoLIN REGULAR SUPPLEMENTAL SCALE SQ SCH ×2 (03:33→08:00)
[2017-08-05] MEDS: NOREPINEPHRINE INJ 16 MG in SODIUM CHLOR 0.9% 250 ML INJ 234 ML IV PRN ×3 (03:41→11:17)
--- NOTE | 2017-08-05 03:57 | RADRPT ---
EXAM DATE: 08/05/2017 3:46 AM EDT AGE/SEX: 56 years / Male INDICATIONS: Respiratory failure. CLINICAL DATA: This is the patient's subsequent encounter. Patient reports that signs and symptoms h ave been present for 4 - 6 days and indicates a pain score of Nonresponsive. MEDICAL/SURGICAL HISTORY: . Hypercholesterolemia. Hypertension. Hepatitis C. Hyperparathyroidis m. GERD. Diabetes. Anemia. Squamous skin cancer . Tonsillectomy. Adenoidectomy. AV shunt. Dialysis. Skin cancer removal from forehead. COMPARISON: [facility] – [place], CHEST SINGLE AP, 08/03/2017. . FINDINGS: Single AP view the chest. Endotracheal tube, nasogastric tube, right IJ central venous catheter remai n in place. Mild patchy right lung base opacity unchanged. Patchy left lung base opacity has decrease d. Minimal right pleural effusion. No evidence of pneumothorax. CONCLUSION: Interval decrease in left lung base atelectasis. Patchy right lung base parenchymal opacity unchanged . Electronically signed by: Rayo Cespedes MD 08/05/2017 3:56 AM EDT
[2017-08-05 04:48] LABS: HEMATOCRIT 28.1 % (39.0-51.0); HEMOGLOBIN 9.4 GM/DL (13.0-17.0); MEAN CELL VOLUME 88.4 FL (80.0-100.0); MEAN CORPUSCULAR HEMOGLOBIN 29.4 PG (27.0-34.0); MEAN CORPUSCULAR HGB CONC 33.3 % (32.0-36.0); MEAN PLATELET VOLUME 10.7 FL (7.0-11.0); PLATELET COUNT 44 TH/MM3 (150-450); RED BLOOD COUNT 3.18 MIL/MM3 (4.50-5.90); RED CELL DISTRIBUTION WIDTH 16.9 % (11.6-17.2); WHITE BLOOD COUNT 18.2 TH/MM3 (4.0-11.0)
[2017-08-05 04:57] LABS: INTERNATIONAL NORMALIZED RATIO 5.9 RATIO
[2017-08-05 04:58] LABS: ALBUMIN 1.9 GM/DL (3.4-5.0); AST (GOT) 827 U/L (15-37); BLOOD UREA NITROGEN 32 MG/DL (7-18); CALCIUM 10.6 MG/DL (8.5-10.1); CHLORIDE 85 MEQ/L (98-107); CREATININE 2.19 MG/DL (0.60-1.30); GLOMERULAR FILTRATION RATE 31 ML/MIN (>89); GLUCOSE,RANDOM 119 MG/DL (74-106); MAGNESIUM 1.3 MG/DL (1.5-2.5); PHOSPHORUS 6.2 MG/DL (2.5-4.9); SODIUM (NA) 131 MEQ/L (136-145)
[2017-08-05 05:07] LABS: ALKALINE PHOSPHATASE 205 U/L (45-117); ALT (GPT) 1610 U/L (12-78); RANDOM VANCOMYCIN 11.7 COMMENT; TOTAL PROTEIN 4.7 GM/DL (6.4-8.2)
[2017-08-05] MEDS: HYDROCORTISONE SOD SUCCINATE 100 MG VIAL IV PUSH SCH (05:13)
[2017-08-05] MEDS: ARTIFICIAL TEARS OPTH SOLN 15 ML BTL EACH EYE SCH (05:22)
[2017-08-05 05:37] LABS: BANDS 37 % (0-6); CORRECTED NUCLEATED RBC 1 /100 WBC (0-0); LYMPHOCYTES 3 % (9-44); METAMYELOCYTES 2 % (0-1); MONOCYTES 2 % (0-8); NEUTROPHIL # MANUAL DIFF 17.3 TH/MM3 (1.8-7.7); NUCLEATED RED BLOOD CELL 1 (0-0); POLYS (SEG NEUTROPHILS) 56 % (16-70)
[2017-08-05 05:38] LABS: DOHLE BODIES PRESENT (NONE SEEN); OVALOCYTES 1+ (NORMAL)
[2017-08-05] MEDS: PHENYLEPHRINE HCL 160 MG/D5W 484 ML ADMIX IV PRN ×2 (06:21)
[2017-08-05] MEDS: EPINEPHrine 2 MG/D5W 250 ML IV PRN ×6 (06:45→12:46)
[2017-08-05] MEDS: CHLORHEXIDINE 0.12% (ORAL KIT) 15 ML CUP MT SCH (08:00)
[2017-08-05] MEDS: VITAMIN B COMPLEX/VIT C TAB PO SCH (09:00)
[2017-08-05] MEDS: DOCUSATE SODIUM 50 MG/SENNA 8.6 MG TAB PO SCH (09:00)
[2017-08-05] MEDS: SODIUM CHLORIDE 0.9% FLUSH 10 ML FLUSH IV FLUSH SCH ×2 (09:00)
[2017-08-05] MEDS: LACTIC ACID (AMMONIUM LACTATE) 12% LOTION 225 GM BTL TOPICAL SCH (09:00)
[2017-08-05] MEDS: hydrOXYzine PAMOATE 25 MG CAP PO SCH (09:00)
[2017-08-05] MEDS: MUPIROCIN 2% OINT 1 APPLIC/GM SYR EACH NARE SCH (09:10)
[2017-08-05] MEDS: PANTOPRAZOLE SODIUM 40 MG VIAL IV PUSH SCH (10:13)
[2017-08-05] MEDS: VALPROATE IV SCH ×2 (10:14)
[2017-08-05] MEDS: NS IV SCH ×2 (10:14)
--- NOTE | 2017-08-05 11:05 | HHI.NPPN ---
Subjective Renal Failure: Chronic, End Stage Renal Disease Interval History CRRT continues. Pressor support increased. Eyes open, absent corneal reflex. (Zahra Aguilar) Review of Systems General General Remarks unable to obtain (Zahra Aguilar) Objective Data Data 08/05/17 08/06/17 19:00 07:00 Intake Total 5670 ml Balance 5670 ml IV Total 5670 ml Vital Signs Date Time Temp Pulse Resp B/P (MAP) Pulse Ox O2 Delivery O2 Flow Rate FiO2 08/05/17 10:00 82 122/53 08/05/17 09:46 83 108/51 08/05/17 09:09 99 50 08/05/17 09:00 85 98/47 08/05/17 08:00 100 08/05/17 08:00 96.6 77 24 127/55 (79) 99 08/05/17 06:45 79 96/46 08/05/17 06:21 77 116/54 08/05/17 05:57 81 90/45 08/05/17 04:00 100 08/05/17 04:00 96.9 76 24 119/72 (88) 100 103/48 (66) 08/05/17 03:41 76 98/45 08/05/17 03:06 99 95 08/05/17 01:25 24 08/05/17 00:26 96 100 08/05/17 00:00 100 08/05/17 00:00 97.6 80 24 102/70 (81) 100 117/55 (75) 08/04/17 23:09 80 104/50 08/04/17 23:08 81 107/52 08/04/17 21:29 80 113/56 08/04/17 20:52 96 100 08/04/17 20:45 80 117/50 08/04/17 20:29 78 80/52 08/04/17 20:00 100 08/04/17 20:00 98.0 81 24 106/71 (83) 100 115/56 (75) 08/04/17 19:36 81 114/58 08/04/17 18:50 82 106/53 08/04/17 17:31 86 97/55 08/04/17 17:00 121 84/51 08/04/17 16:28 95 100 08/04/17 16:00 100 08/04/17 16:00 97.2 87 24 91/48 (62) 100 08/04/17 16:00 87 08/04/17 15:19 84 92/51 08/04/17 15:03 85 97/54 08/04/17 14:25 81 08/04/17 14:05 106 78/45 08/04/17 14:00 128 08/04/17 13:52 127 101/58 08/04/17 12:30 96.0 129 24 110/62 98 08/04/17 12:07 96.2 133 25 106/62 97 08/04/17 12:00 96.2 08/04/17 12:00 128 08/04/17 12:00 100 08/04/17 12:00 96.1 128 25 113/63 (80) 98 08/04/17 11:47 97 100 08/04/17 11:31 140 154/79 08/04/17 11:30 96.2 126 24 145/75 100 08/04/17 11:29 133 147/74 08/04/17 11:15 96.4 125 24 107/58 96 (Zahra Aguilar) -: 08/05/17 0425 08/05/17 0425 Imaging Last 72 hours Impressions Chest X-Ray 08/05/17 0600 Signed Impressions: CONCLUSION: Interval decrease in left lung base atelectasis. Patchy right lung base parench ymal opacity unchanged. Chest X-Ray 08/03/17 0600 Signed Impressions: CONCLUSION: Lungs are grossly clear. Tubes and catheter in good position. Tubes & Lines: Vas-Cath Tubes & Lines Comment A line, wound vac abd Drip Comment D10, vaso, levo, epi, phenylephrine, esmolol (Zahra Aguilar) Physical Exam General Appearance: No Acute Distress, Pale Appearance Remarks intubated and unresponsive (Zahra Aguilar) Eyes Eye Remarks eyes open, pupils unreactive, absent corneal reflex (Zahra Aguilar) Pulmonary Resp Exam: Clear Bilaterally (Zahra Aguilar) Cardiology CV Exam: Regular, Normal Sinus Rhythm, Tachycardia (Zahra Aguilar) Gastrointestinal/Abdomen GI Exam: Soft, Bowel Sounds Present, Bowel Sounds Absent (Post surgical abdomen ) GI Remarks wound vac abdomen (Zahra Aguilar) Musculoskeletal MS Exam: Joints Intact, Normal Tone, Unable to Ambulate (Zahra Aguilar) Integumentary Skin Exam: Warm, Dry (Zahra Aguilar) Extremeties Extremities Exam: Pedal Pulses Palpable, Moderate Edema (Zahra Agiular) Neurologic Neuro Exam: Unresponsive, Sedated (Zahra Aguilar) Assessment/Plan Assessment Summary: Hypotension, End Stage Renal Disease Problem List: (1) End stage renal failure on dialysis ICD Codes: N18.6 - End stage renal failure on dialysis; Z99.2 - Dependence on renal dialysis Status: Chronic Plan: Typical TTS HD, clinically unstable Has been on CRRT, net fluid removal of zero. On 4K bath with bicarb predilutional Continue to monitor electrolytes and fluid status per protocol. His overall prognosis is poor. Requiring multiple pressors at this time. Will notify family if he is too unstable for CRRT. Palliative has been consulted. Vascath left groin. (2) Sepsis ICD Codes: A41.9 - Sepsis, unspecified organism Plan: Lactic acidosis Hyperthermic, now hypothermic Culture reviewed, antibiotics include zosyn, vancomycin, micafungin Prognosis is poor (3) GI bleed ICD Codes: K92.2 - Gastrointestinal hemorrhage, unspecified Status: Acute Plan: s/p right hemicolectomy No further bleeding reported Plan was to go back to OR today, may happen at bedside due to instability. Needs wound vac removal and abdominal wash out, removal of necrotic bowel. (4) Respiratory failure ICD Codes: J96.90 - Respiratory failure, unspecified, unspecified whether with hypoxia or hypercapnia Plan: Intubated (5) Hypertension ICD Codes: I10 - Hypertension Status: Acute Plan: Hypotensive, titrate pressors as needed, monitor blood pressure (6) DM (diabetes mellitus) ICD Codes: E11.9 - DM (diabetes mellitus) Status: Chronic Plan: Monitor blood glucose Plan p (Zahra Aguilar) Plan patient was seen and examined. Hemodynamically unstable. Lactic acidosis. Overwhelming sepsis. Thrombocytopenia is noted: stop heparin. Likely DIC, but HIT will have to be considered. Very poor prognosis. (Felix Andersen MD) Problem Qualifiers (1) GI bleed: Qualified Codes: K92.2 - Gastrointestinal hemorrhage, unspecified Zahra Aguilar Aug 05, 2017 11:05 Felix Andersen MD Aug 05, 2017 11:48
--- NOTE | 2017-08-05 12:07 | PD.CONS ---
Consult Service Palliative Care Consult Requested By Dr. Campos Primary Care Physician Baltazar Saez MD Reason for Consultation a. To assist with evaluation and management of symptoms including: dyspnea, anxiety, pain. b. To assist medical decision maker(s) with: better understanding of current medical conditions; weighing benefits/burdens of medical treatment options; making medical treatment decisions. HPI History of Present Illness Patient is a 56-year-old male with melena significant past medical history of renal disease and is hemodialysis dependent on Friday, , and Friday. He also has schizophrenia, GERD, esophagitis, diabetes, hypertension aortic stenosis (status post TAVR in 01/2017 ). He has also had recent hospitalization june 2017 for severe anemia and GI bleed. And as noted by washer engineer that patient continues to take Plavix and aspirin. Patient presented to the hospital on 08/01/2017 from [facility] for 3 episodes of coffee-ground emesis. During the first day 08/01/2017; * Patient was hypotensive with a BP of 94/50, pulse 120, respirations 16, temperature 98.4 * WBCs 15.4, hemoglobin is 10.5, hematocrit 31.7, platelet is 331 * Sodium is 137, potassium 4.7, chloride 91, bicarb is 20.4, BUN 75, creatinine 7.10 * PT 13.4, INR is 1.3, PTT is 29.3 * Chest x-ray shows diffuse interstitial markings likely related to edema. * Abdominal x-ray was negative and unremarkable * Pt admitted to icu. placed on pressors. subsequent imaging in the following morining 08/02/2017: * Lower extremity ultrasound was negative for DVT * Chest CT shows bilateral lower lung consolidation and bilateral small pleural effusions. * Abdominal CT shows no evidence of bowel obstruction adenopathy or aneurysm. There is a large amount of free intraperitoneal air, exact origin is uncertain. There is gallbladder wall emphysema noted with an air-fluid level within the gallbladder. Emphysematious cholescystitis with perforation would be leading differential diagnosis consideration. There is focal bowel wall thickening involving the mid transverse colon that is nonspecific. There is small amount of free fluid in the mesentery perihepatic and perisplenic region. * Pt went into respiratory failure in the morning and acutely hypotensive requires intubation and pressor support * Surgery was consulted, feels pt likely has intestinal perforation with 3rd spacing from SIRS. Pt was taken to OR and found to have gangrenous right colon and perforated gangrenous small intestine. Pt s/p colectomy, cholecystectomy, and wound VAC placement. == 08/03/2017- depsite aggressive measures with medical (pressors, mechanical ventilation, antibiotics) and surgical support pt condition continues to deteriorate. Pt continues to be septic with renal failure. Surgeon and critical medicine noted unlikley to survive. Pt was made a DNR 08/03. == 08/04/2017 - remains on mechanical ventilation, remains hemodynamically unstable and surgeon does not feel pt is stable enough to undergo 2nd look operation. Again surgeon noted survival chance is low. Nephrology noted same poor prognosis. Palliative Care is consulted. Spoke with Health Care surrogate Sherri Melara, and Fernando Herron. (pt's only siblings) Patient currently sedated and intubated, unable to elicit history. Patient's family endorse that pt has been very comfortable currently. Pt currently is on fentanyl. We have reviewed living will and health care surrogate form, and readdress code status (advance care planning >18) they maintain a DNR. We reviewed pt's clinical condition and poor prognosis. They have made the decision to transition to comfort measures only. We talked discussed plan of treatment for symptoms for compassionate extubation for pain, anxiety, and dyspnea. They are amenable to continue fentanyl drip, schedule ativan, dialudid, for anxiety, pain and sensation of dyspnea. We spoke about prn medication. We talked about after extubation, prognosis could be minuets to hours. They are amenable to hospice consult should pt survive the night. Function/Cognitive Trajectory Per family patient has been debilitated, requires CUSTODIAL support. He dose walk and eat by himself. He has been afflicted with schizophrenia. Review of Systems ROS Limitations: Clinical Condition Constitutional: COMPLAINS OF: Fatigue Endocrine: DENIES: Heat/cold intolerance, Polydipsia, Polyuria Eyes: DENIES: Blurred vision, Diplopia, Eye inflammation Ears, nose, mouth, throat: DENIES: Hearing loss, Vertigo Respiratory: COMPLAINS OF: Shortness of breath Cardiovascular: COMPLAINS OF: Dyspnea on Exertion, DENIES: Chest pain, Palpitations Gastrointestinal: COMPLAINS OF: Abdominal pain, Nausea, Vomiting, Bloating, Vomiting blood Genitourinary: DENIES: Urinary frequency, Urinary incontinence Musculoskeletal: DENIES: Joint pain, Muscle aches Integumentary: DENIES: Abnormal pigmentation Immunologic/Allergic: DENIES: Eczema, Urticaria Neurologic: DENIES: Abnormal gait, Headache Psychiatric: COMPLAINS OF: Anxiety Past Family Social History Coded Allergies: fexofenadine (Unverified Adverse Reaction, Unknown, PT DENIES ALLERGY, 08/01) Pt denies allergy Past Medical History Anemia Anxiety Depression Skin cancer on forehead Hyperlipidemia End-stage renal disease with hemodialysis Schizophrenia GERD Esophagitis Diabetes type 2 Hypertension Aortic stenosis status post TAPVR Debility Past Surgical History TAVR, aortic stenosis Dialysis Friday AV shunt left upper arm Cataracts Skin surgery to forehead Current Medications Medications (Trade) Dose Ordered Sig/Diane Route Start Time Stop Time Status Last Admin (Vistaril) 25 mg QID PO 08/02/17 09:00 (Lac-Hydrin 12% Lotion) 1 applic DAILY TOPICAL 08/02/17 09:00 (Remeron) 30 mg HS PO 08/02/17 21:00 (Allbee C) 1 tab DAILY PO 08/02/17 09:00 (Zofran Odt) 4 mg Q8HR PRN PO 08/01/17 21:30 08/02/17 00:11 (NS Flush) 2 ml UNSCH PRN IV FLUSH 08/01/17 21:30 (NS Flush) 2 ml BID IV FLUSH 08/02/17 09:00 08/05/17 09:00 (Morphine Inj) 2 mg Q2H PRN IV PUSH 08/01/17 21:30 08/05/17 00:21 (Reglan Inj) 5 mg Q6H PRN IV PUSH 08/01/17 21:30 08/01/17 23:34 ([facility] [place] [facility]) 1 Q361D XX 08/01/17 21:30 (Chlorhexidine 2% Cloth) 3 pack Taper DAILY@04 TOP 08/02/17 04:00 07/29/18 03:59 08/05/17 03:25 (Chlorhexidine 2% Cloth) 3 pack UNSCH PRN TOP 08/01/17 21:30 (Berta-Colace) 1 tab BID PO 08/02/17 09:00 08/04/17 19:53 (Milk Of Magnesia Liq) 30 ml Q12H PRN PO 08/01/17 21:30 (Senokot) 17.2 mg Q12H PRN PO 08/01/17 21:30 (Dulcolax Supp) 10 mg DAILY PRN RECTAL 08/01/17 21:30 (Lactulose Liq) 30 ml DAILY PRN PO 08/01/17 21:30 (Peridex 0.12% Liq) 15 ml BID@08,20 MT 08/02/17 08:00 08/05/17 08:00 Propofol 100 ml @ 2.67 mls/hr TITRATE PRN IV 08/02/17 06:45 08/02/17 12:24 Fentanyl Citrate 250 ml @ 5 mls/hr TITRATE PRN IV 08/02/17 06:45 08/05/17 02:57 (NS Flush) DAILY IV FLUSH 08/02/17 09:00 08/04/17 09:29 (NS Flush) UNSCH PRN IV FLUSH 08/02/17 07:30 (Duoneb Neb) 1 ampule Q4HR NEB NEB 08/02/17 08:00 08/05/17 09:03 (Albuterol Neb) 2.5 mg Q2HR NEB PRN NEB 08/02/17 07:45 (Tears Naturale Opth Soln) 1 drop Q8HR EACH EYE 08/02/17 14:00 08/05/17 05:22 (D50w (Vial) Inj) 50 ml UNSCH PRN IV PUSH 08/02/17 08:15 08/03/17 09:01 (Glucagon Inj) 1 mg UNSCH PRN OTHER 08/02/17 08:15 (NovoLIN R SUPPLEMENTAL SCALE) 1 Q4HR SQ 08/02/17 12:00 08/04/17 16:51 (SoluCORTEF INJ) 100 mg Q8HR IV PUSH 08/02/17 14:00 08/05/17 05:13 Sodium Chloride 1,000 ml @ 0 mls/hr Q0M PRN OTHER 08/02/17 11:40 (Heparin Inj) 8,000 units UNSCH PRN IV FLUSH 08/02/17 11:45 Sodium Chloride 1,000 ml @ 200 mls/hr Q5H PRN IV 08/02/17 11:40 Sodium Chloride 1,000 ml @ 0 mls/hr Q0M PRN OTHER 08/02/17 11:40 (Mannitol Inj) 12.5 gm UNSCH PRN IV 08/02/17 11:45 Albumin Human 100 ml @ 60 mls/hr UNSCH PRN IV 08/02/17 11:45 (NS Flush) 5 ml UNSCH PRN IV FLUSH 08/02/17 11:45 (Zofran Odt) 4 mg UNSCH PRN PO 08/02/17 11:45 (Benadryl) 25 mg UNSCH PRN PO 08/02/17 11:45 (Nitrostat Sl) 0.4 mg UNSCH PRN SL 08/02/17 11:45 (Catapres) 0.1 mg UNSCH PRN PO 08/02/17 11:45 (Epogen Inj) 4,000 units UNSCH PRN IV PUSH 08/02/17 11:45 (Gelfoam 12 Mm/7 Mm Top) 1 foam UNSCH PRN TOP 08/02/17 11:45 Vasopressin 40 units/Dextrose 100 ml @ 1.5 mls/hr Q24H IV 08/03/17 01:49 08/04/17 09:28 Dextrose 1,000 ml @ 50 mls/hr Q20H IV 08/03/17 09:30 08/04/17 13:18 Valproate Sodium 500 mg/Sodium Chloride 105 ml @ 105 mls/hr Q12H IV 08/03/17 11:00 08/05/17 10:14 (Protonix Inj) 40 mg Q12H IV PUSH 08/03/17 10:30 08/05/17 10:13 Protamine Sulfate 250 mg/Sodium Chloride 250 ml @ 5 mls/hr TITRATE PRN IV 08/03/17 13:00 Heparin Sodium/ Dextrose 250 ml @ 5 mls/hr TITRATE PRN IV 08/03/17 11:00 Sodium Bicarbonate 75 meq/Sodium Chloride 1,075 ml @ 500 mls/hr Q2H9M IV 08/03/17 13:00 08/05/17 11:00 Sodium Bicarbonate 75 meq/Sodium Chloride 1,075 ml @ 999 mls/hr Q1H5M IV 08/03/17 13:00 08/05/17 11:20 Epinephrine HCl 2 mg/Dextrose 250 ml @ 22.5 mls/hr TITRATE PRN IV 08/03/17 18:00 08/05/17 09:46 Phenylephrine HCl 160 mg/Dextrose 500 ml @ 7.5 mls/hr TITRATE PRN IV 08/03/17 18:30 08/05/17 06:21 (Brethine Inj) 1 mg UNSCH PRN SQ 08/03/17 18:30 Piperacillin Sod/ Tazobactam Sod 50 ml @ 100 mls/hr Q6H IV 08/03/17 20:00 08/05/17 09:10 Micafungin Sodium 150 mg/Sodium Chloride 100 ml @ 100 mls/hr Q24H IV 08/03/17 21:00 08/04/17 20:37 (KCl 40 Meq Premix Inj) 4 meq WITH DIALYSIS PRN .XX 08/04/17 08:45 08/05/17 02:41 Epoprostenol Sodium 100 ml/ Sodium Chloride 100 ml @ 5 mls/hr Q8H NEB 08/04/17 10:00 08/05/17 02:55 (Bactroban Nasal 2% Oint) 1 applic Taper BID EACH NARE 08/04/17 21:00 07/31/18 20:59 08/05/17 09:10 Esmolol HCl/ Sodium Chloride 250 ml @ 33.27 mls/ hr TITRATE PRN IV 08/04/17 11:15 08/04/17 23:08 Norepinephrine Bitartrate 16 mg/ Sodium Chloride 250 ml @ 1.87 mls/hr TITRATE PRN IV 08/04/17 20:45 08/05/17 11:17 Family History no family history Substance Use Tobacco: Alcohol: Prescription med abuse: Illicits: Psychosocial History Hx of Schizophrenia around college age. Only family that has survive is patients brother Fernando Herron and sister Sherri Melara. they are the health care surrogate. Spiritual/Cultural Factors Buddhism Living Will: Copy in medical record Health Care Surrogate: Copy in medical record Family/friends goals: transition to comfort measures Physical Exam Vital Signs Date Time Temp Pulse Resp B/P (MAP) Pulse Ox O2 Delivery O2 Flow Rate FiO2 08/05/17 11:17 84 121/55 08/05/17 10:00 82 122/53 08/05/17 09:46 83 108/51 08/05/17 09:09 99 50 08/05/17 09:00 85 98/47 08/05/17 08:00 75 08/05/17 08:00 100 08/05/17 08:00 96.6 77 24 127/55 (79) 99 18 06:45 79 96/46 08/05/17 06:21 77 116/54 08/05/17 05:57 81 90/45 08/05/17 04:00 100 08/05/17 04:00 96.9 76 24 119/72 (88) 100 103/48 (66) 08/05/17 03:41 76 98/45 08/05/17 03:06 99 95 08/05/17 01:25 24 08/05/17 00:26 96 100 08/05/17 00:00 100 08/05/17 00:00 97.6 80 24 102/70 (81) 100 117/55 (75) 08/04/17 23:09 80 104/50 08/04/17 23:08 81 107/52 08/04/17 21:29 80 113/56 08/04/17 20:52 96 100 08/04/17 20:45 80 117/50 08/04/17 20:29 78 80/52 08/04/17 20:00 100 08/04/17 20:00 98.0 81 24 106/71 (83) 100 115/56 (75) 08/04/17 19:36 81 114/58 08/04/17 18:50 82 106/53 08/04/17 17:31 86 97/55 08/04/17 17:00 121 84/51 08/04/17 16:28 95 100 08/04/17 16:00 100 08/04/17 16:00 97.2 87 24 91/48 (62) 100 08/04/17 16:00 87 08/04/17 15:19 84 92/51 08/04/17 15:03 85 97/54 08/04/17 14:25 81 08/04/17 14:05 106 78/45 08/04/17 14:00 128 18 13:52 127 101/58 08/04/17 12:30 96.0 129 24 110/62 98 08/04/17 12:07 96.2 133 25 106/62 97 08/04/17 12:00 96.2 08/04/17 12:00 128 08/04/17 12:00 100 08/04/17 12:00 96.1 128 25 113/63 (80) 98 08/04/17 11:47 97 100 08/05/17 08/06/17 19:00 07:00 Intake Total 1620 ml Balance 1620 ml IV Total 1620 ml Exam CONSTITUTIONAL/GENERAL: This is an critically ill 53 year old intubated, sedated TUBES/LINES/DRAINS: ortiz, wound vac abdominal. undergoing dialysis, central line. SKIN: No jaundice, rashes, or lesions. Ecchymoses on upper extremities. HEAD: Atraumatic. Normocephalic. EYES: No scleral icterus. No injection or drainage. Fundi not examined. ENT: . Nose without bleeding or purulent drainage. Throat ET tube in place NECK: Trachea midline. Supple, nontender. No palpable thyroid enlargement or nodularity. CARDIOVASCULAR: Regular rate and rhythm without murmurs, gallops, or rubs. No JVD. RESPIRATORY/CHEST: Symmetric, unlabored respirations. Clear to auscultation. Breath sounds equal bilaterally. No wheezes, rales, or rhonchi. GASTROINTESTINAL: Abdomen non tender, wound vac in place GENITOURINARY: Without palpable bladder distension. Ortiz catheter in place. MUSCULOSKELETAL: Extremities without clubbing. Edema 3+ on all ext. LYMPHATICS: No palpable cervical or supraclavicular adenopathy. NEUROLOGICAL:not alert, unresponsive PSYCHIATRIC: could not elicit or examine given level of responsiveness. Diagnostic Tests Laboratory Laboratory Tests Test 08/02/17 15:00 08/02/17 16:12 08/02/17 16:25 08/02/17 19:38 Hemoglobin 11.7 GM/DL (13.0-17.0) 9.7 GM/DL (13.0-17.0) Hematocrit 35.5 % (39.0-51.0) 29.4 % (39.0-51.0) Lactic Acid Level 5.9 mmol/L (0.4-2.0) 6.3 mmol/L (0.4-2.0) Magnesium Level 2.1 MG/DL (1.5-2.5) 1.9 MG/DL (1.5-2.5) Troponin I 0.31 NG/ML (0.02-0.05) 0.33 NG/ML (0.02-0.05) Blood Gas Puncture Site ART LINE Blood Gas Patient Temperature 98.6 Blood Gas HCO3 15 mmol/L (22-26) Blood Gas Base Excess -11.4 mmol/L (-2-2) Blood Gas Oxygen Saturation 96 % (90-100) Arterial Blood pH 7.21 (7.380-7.420) Arterial Blood Partial Pressure CO2 38 mmHg (38-42) Arterial Blood Partial Pressure O2 193 mmHg (61-120) Arterial Blood Oxygen Content 17.8 Vol % (12.0-20.0) Arterial Blood Carboxyhemoglobin 0.8 % (0-4) Arterial Blood Methemoglobin 1.4 % (0-2) Blood Gas Hemoglobin 12.8 G/DL (12.0-16.0) Oxygen Delivery Device VENTILATOR Blood Gas Inspired Oxygen 100 % Prothrombin Time 18.9 SEC (9.8-11.6) Prothromb Time International Ratio 1.9 RATIO Activated Partial Thromboplast Time 39.2 SEC (24.3-30.1) Fibrinogen 582 mg/dL (227-377) Blood Urea Nitrogen 81 MG/DL (7-18) Creatinine 6.31 MG/DL (0.60-1.30) Random Glucose 49 MG/DL (74-106) Calcium Level 9.0 MG/DL (8.5-10.1) Phosphorus Level 8.4 MG/DL (2.5-4.9) Sodium Level 146 MEQ/L (136-145) Potassium Level 4.8 MEQ/L (3.5-5.1) Chloride Level 110 MEQ/L (98-107) Carbon Dioxide Level 16.6 MEQ/L (21.0-32.0) Anion Gap 19 MEQ/L (5-15) Estimat Glomerular Filtration Rate 9 ML/MIN (>89) Test 08/02/17 20:50 08/03/17 01:30 08/03/17 04:02 08/03/17 08:24 Blood Gas Puncture Site ART LINE ART LINE Blood Gas Patient Temperature 98.6 98.6 Blood Gas HCO3 14 mmol/L (22-26) 14 mmol/L (22-26) Blood Gas Base Excess -12.1 mmol/L (-2-2) -12.2 mmol/L (-2-2) Blood Gas Oxygen Saturation 95 % (90-100) 98 % (90-100) Arterial Blood pH 7.22 (7.380-7.420) 7.22 (7.380-7.420) Arterial Blood Partial Pressure CO2 36 mmHg (38-42) 36 mmHg (38-42) Arterial Blood Partial Pressure O2 112 mmHg (61-120) 276 mmHg (61-120) Arterial Blood Oxygen Content 13.7 Vol % (12.0-20.0) 13.2 Vol % (12.0-20.0) Arterial Blood Carboxyhemoglobin 1.0 % (0-4) 0.9 % (0-4) Arterial Blood Methemoglobin 1.1 % (0-2) 1.1 % (0-2) Blood Gas Hemoglobin 10.1 G/DL (12.0-16.0) 9.1 G/DL (12.0-16.0) Oxygen Delivery Device VENTILATOR VENT Blood Gas Ventilator Setting PRVC/AC PRVC/AC Blood Gas Inspired Oxygen 100 % 100 % White Blood Count 4.1 TH/MM3 (4.0-11.0) Red Blood Count 3.42 MIL/MM3 (4.50-5.90) Hemoglobin 10.2 GM/DL (13.0-17.0) 9.5 GM/DL (13.0-17.0) Hematocrit 31.3 % (39.0-51.0) 29.1 % (39.0-51.0) Mean Corpuscular Volume 91.5 FL (80.0-100.0) Mean Corpuscular Hemoglobin 29.8 PG (27.0-34.0) Mean Corpuscular Hemoglobin Concent 32.6 % (32.0-36.0) Red Cell Distribution Width 18.2 % (11.6-17.2) Platelet Count 195 TH/MM3 (150-450) Mean Platelet Volume 10.2 FL (7.0-11.0) Neutrophils (%) (Auto) 92.7 % (16.0-70.0) Lymphocytes (%) (Auto) 4.4 % (9.0-44.0) Monocytes (%) (Auto) 2.5 % (0.0-8.0) Eosinophils (%) (Auto) 0.2 % (0.0-4.0) Basophils (%) (Auto) 0.2 % (0.0-2.0) Neutrophils # (Auto) 3.8 TH/MM3 (1.8-7.7) Lymphocytes # (Auto) 0.2 TH/MM3 (1.0-4.8) Monocytes # (Auto) 0.1 TH/MM3 (0-0.9) Eosinophils # (Auto) 0.0 TH/MM3 (0-0.4) Basophils # (Auto) 0.0 TH/MM3 (0-0.2) CBC Comment AUTO DIFF Differential Total Cells Counted 100 Neutrophils % (Manual) 61 % (16-70) Band Neutrophils % 28 % (0-6) Lymphocytes % 9 % (9-44) Monocytes % 1 % (0-8) Neutrophils # (Manual) 3.7 TH/MM3 (1.8-7.7) Metamyelocytes 1 % (0-1) Nucleated Red Blood Cells 9 /100 WBC (0-0) Differential Comment FINAL DIFF MANUAL Toxic Granulation 2+ (NORMAL) Dohle Bodies PRESENT (NONE SEEN) Platelet Estimate NORMAL (NORMAL) Platelet Morphology Comment NORMAL (NORMAL) Basophilic Stippling FAINT (NORMAL) Ovalocytes 1+ (NORMAL) Prothrombin Time 19.2 SEC (9.8-11.6) Prothromb Time International Ratio 1.9 RATIO Activated Partial Thromboplast Time 43.7 SEC (24.3-30.1) Fibrinogen 669 mg/dL (227-377) Blood Urea Nitrogen 78 MG/DL (7-18) Creatinine 5.94 MG/DL (0.60-1.30) Random Glucose 71 MG/DL (74-106) Total Protein 4.4 GM/DL (6.4-8.2) Albumin 1.5 GM/DL (3.4-5.0) Calcium Level 9.1 MG/DL (8.5-10.1) Phosphorus Level 8.0 MG/DL (2.5-4.9) Magnesium Level 1.9 MG/DL (1.5-2.5) Alkaline Phosphatase 146 U/L (45-117) Aspartate Amino Transf (AST/SGOT) 1610 U/L (15-37) Alanine Aminotransferase (ALT/SGPT) 1263 U/L (12-78) Total Bilirubin 0.4 MG/DL (0.2-1.0) Sodium Level 147 MEQ/L (136-145) Potassium Level 5.4 MEQ/L (3.5-5.1) Chloride Level 113 MEQ/L (98-107) Carbon Dioxide Level 15.8 MEQ/L (21.0-32.0) Anion Gap 18 MEQ/L (5-15) Estimat Glomerular Filtration Rate 10 ML/MIN (>89) Lactic Acid Level 6.5 mmol/L (0.4-2.0) 6.2 mmol/L (0.4-2.0) Troponin I 0.36 NG/ML (0.02-0.05) Triglycerides Level 119 MG/DL (42-150) Cholesterol Level LESS THAN 50 MG/DL LDL Cholesterol 10 MG/DL (0-99) HDL Cholesterol 15.7 MG/DL (40.0-60.0) Cholesterol/HDL Ratio 3.18 RATIO Valproic Acid (Depakene) Level 7 MCG/ML (50-100) Hepatitis A IgM Antibody NONREACTIVE (NONREACTIVE) Hepatitis B Surface Antigen NONREACTIVE (NONREACTIVE) Hepatitis B Core IgM Antibody NONREACTIVE (NONREACTIVE) Hepatitis C IgG Antibody NONREACTIVE (NONREACTIVE) Test 08/03/17 09:32 08/03/17 15:00 08/03/17 15:38 08/04/17 04:30 Blood Gas Puncture Site ART LINE ART LINE Blood Gas Patient Temperature 98.6 98.6 Blood Gas HCO3 13 mmol/L (22-26) 13 mmol/L (22-26) Blood Gas Base Excess -11.7 mmol/L (-2-2) -11.6 mmol/L (-2-2) Blood Gas Oxygen Saturation 97 % (90-100) 98 % (90-100) Arterial Blood pH 7.31 (7.380-7.420) 7.32 (7.380-7.420) Arterial Blood Partial Pressure CO2 27 mmHg (38-42) 26 mmHg (38-42) Arterial Blood Partial Pressure O2 153 mmHg (61-120) 240 mmHg (61-120) Arterial Blood Oxygen Content 12.5 Vol % (12.0-20.0) 11.3 Vol % (12.0-20.0) Arterial Blood Carboxyhemoglobin 1.0 % (0-4) 1.1 % (0-4) Arterial Blood Methemoglobin 1.3 % (0-2) 1.1 % (0-2) Blood Gas Hemoglobin 9.0 G/DL (12.0-16.0) 7.8 G/DL (12.0-16.0) Oxygen Delivery Device VENTILATOR VENTILATOR Blood Gas Ventilator Setting [facility]/ PRVC26/650/1.0/+5 Blood Gas Inspired Oxygen 80 % 75 % Hemoglobin 8.3 GM/DL (13.0-17.0) Hematocrit 25.4 % (39.0-51.0) Lactic Acid Level 9.0 mmol/L (0.4-2.0) Blood Urea Nitrogen 52 MG/DL (7-18) Creatinine 3.73 MG/DL (0.60-1.30) Random Glucose 161 MG/DL (74-106) Total Protein 4.8 GM/DL (6.4-8.2) Albumin 2.2 GM/DL (3.4-5.0) Calcium Level 10.6 MG/DL (8.5-10.1) Phosphorus Level 7.5 MG/DL (2.5-4.9) Magnesium Level 1.4 MG/DL (1.5-2.5) Alkaline Phosphatase 152 U/L (45-117) Aspartate Amino Transf (AST/SGOT) 1539 U/L (15-37) Alanine Aminotransferase (ALT/SGPT) 2207 U/L (12-78) Total Bilirubin 1.1 MG/DL (0.2-1.0) Sodium Level 135 MEQ/L (136-145) Potassium Level 3.7 MEQ/L (3.5-5.1) Chloride Level 93 MEQ/L (98-107) Carbon Dioxide Level 14.5 MEQ/L (21.0-32.0) Anion Gap 28 MEQ/L (5-15) Estimat Glomerular Filtration Rate 17 ML/MIN (>89) Random Vancomycin Level 8.2 COMMENT Test 08/04/17 05:15 08/04/17 08:55 08/04/17 09:07 08/04/17 10:55 Lactic Acid Level 13.7 mmol/L (0.4-2.0) 14.0 mmol/L (0.4-2.0) Blood Gas Puncture Site ART LINE Blood Gas Patient Temperature 98.6 Blood Gas HCO3 17 mmol/L (22-26) Blood Gas Base Excess -6.4 mmol/L (-2-2) Blood Gas Oxygen Saturation 98 % (90-100) Arterial Blood pH 7.42 (7.380-7.420) Arterial Blood Partial Pressure CO2 27 mmHg (38-42) Arterial Blood Partial Pressure O2 250 mmHg (61-120) Arterial Blood Oxygen Content 13.7 Vol % (12.0-20.0) Arterial Blood Carboxyhemoglobin 1.0 % (0-4) Arterial Blood Methemoglobin 1.1 % (0-2) Blood Gas Hemoglobin 9.6 G/DL (12.0-16.0) Oxygen Delivery Device VENTILATOR Blood Gas Ventilator Setting AC24/700/+10 Blood Gas Inspired Oxygen 100 % White Blood Count 12.1 TH/MM3 (4.0-11.0) 10.5 TH/MM3 (4.0-11.0) Red Blood Count 3.18 MIL/MM3 (4.50-5.90) 2.86 MIL/MM3 (4.50-5.90) Hemoglobin 9.6 GM/DL (13.0-17.0) 8.7 GM/DL (13.0-17.0) Hematocrit 28.2 % (39.0-51.0) 25.1 % (39.0-51.0) Mean Corpuscular Volume 88.7 FL (80.0-100.0) 87.8 FL (80.0-100.0) Mean Corpuscular Hemoglobin 30.1 PG (27.0-34.0) 30.3 PG (27.0-34.0) Mean Corpuscular Hemoglobin Concent 33.9 % (32.0-36.0) 34.5 % (32.0-36.0) Red Cell Distribution Width 17.4 % (11.6-17.2) 17.0 % (11.6-17.2) Platelet Count 58 TH/MM3 (150-450) 52 TH/MM3 (150-450) Mean Platelet Volume 9.9 FL (7.0-11.0) 9.8 FL (7.0-11.0) CBC Comment AUTO DIFF AUTO DIFF Differential Total Cells Counted 100 100 Neutrophils % (Manual) 50 % (16-70) 36 % (16-70) Band Neutrophils % 26 % (0-6) 50 % (0-6) Lymphocytes % 6 % (9-44) 3 % (9-44) Monocytes % 18 % (0-8) 11 % (0-8) Neutrophils # (Manual) 9.2 TH/MM3 (1.8-7.7) 9.0 TH/MM3 (1.8-7.7) Nucleated Red Blood Cells 4 /100 WBC (0-0) 4 /100 WBC (0-0) Differential Comment FINAL DIFF MANUAL FINAL DIFF MANUAL Toxic Granulation 1+ (NORMAL) 1+ (NORMAL) Toxic Vacuolation PRESENT (NONE SEEN) PRESENT (NONE SEEN) Platelet Estimate LOW (NORMAL) LOW (NORMAL) Platelet Morphology Comment NORMAL (NORMAL) NORMAL (NORMAL) Prothrombin Time 28.1 SEC (9.8-11.6) Prothromb Time International Ratio 2.8 RATIO Activated Partial Thromboplast Time 72.0 SEC (24.3-30.1) Fibrinogen 607 mg/dL (227-377) Blood Urea Nitrogen 47 MG/DL (7-18) Creatinine 3.33 MG/DL (0.60-1.30) Random Glucose 171 MG/DL (74-106) Calcium Level 10.4 MG/DL (8.5-10.1) Lactate Dehydrogenase 564 U/L (87-241) Sodium Level 134 MEQ/L (136-145) Potassium Level 3.5 MEQ/L (3.5-5.1) Chloride Level 89 MEQ/L (98-107) Carbon Dioxide Level 16.6 MEQ/L (21.0-32.0) Anion Gap 28 MEQ/L (5-15) Estimat Glomerular Filtration Rate 19 ML/MIN (>89) Ammonia 175 MCMOL/L (11-32) Amylase Level 79 U/L (25-115) Lipase 19 U/L (73-393) Phenytoin (Dilantin) Level LESS THAN 0.4 MCG/ML Phosphorus Level 6.5 MG/DL (2.5-4.9) Magnesium Level 1.4 MG/DL (1.5-2.5) Troponin I 0.31 NG/ML (0.02-0.05) Test 08/04/17 15:15 08/04/17 23:58 08/05/17 04:08 08/05/17 04:25 White Blood Count 13.1 TH/MM3 (4.0-11.0) 18.2 TH/MM3 (4.0-11.0) Red Blood Count 2.96 MIL/MM3 (4.50-5.90) 3.18 MIL/MM3 (4.50-5.90) Hemoglobin 8.7 GM/DL (13.0-17.0) 9.2 GM/DL (13.0-17.0) 9.4 GM/DL (13.0-17.0) Hematocrit 26.3 % (39.0-51.0) 27.7 % (39.0-51.0) 28.1 % (39.0-51.0) Mean Corpuscular Volume 88.8 FL (80.0-100.0) 88.4 FL (80.0-100.0) Mean Corpuscular Hemoglobin 29.5 PG (27.0-34.0) 29.4 PG (27.0-34.0) Mean Corpuscular Hemoglobin Concent 33.2 % (32.0-36.0) 33.3 % (32.0-36.0) Red Cell Distribution Width 17.0 % (11.6-17.2) 16.9 % (11.6-17.2) Platelet Count 49 TH/MM3 (150-450) 44 TH/MM3 (150-450) Mean Platelet Volume 9.8 FL (7.0-11.0) 10.7 FL (7.0-11.0) Lactic Acid Level 14.5 mmol/L (0.4-2.0) 14.9 mmol/L (0.4-2.0) 13.7 mmol/L (0.4-2.0) Blood Gas Puncture Site LATOSHA Blood Gas Patient Temperature 98.6 Blood Gas HCO3 19 mmol/L (22-26) Blood Gas Base Excess -3.4 mmol/L (-2-2) Blood Gas Oxygen Saturation 98 % (90-100) Arterial Blood pH 7.50 (7.380-7.420) Arterial Blood Partial Pressure CO2 25 mmHg (38-42) Arterial Blood Partial Pressure O2 379 mmHg (61-120) Arterial Blood Oxygen Content 16.1 Vol % (12.0-20.0) Arterial Blood Carboxyhemoglobin 0.8 % (0-4) Arterial Blood Methemoglobin 1.1 % (0-2) Blood Gas Hemoglobin 11.0 G/DL (12.0-16.0) Oxygen Delivery Device VENTILATOR Blood Gas Ventilator Setting AC/24/700/PEEP 10 Blood Gas Inspired Oxygen 95 % CBC Comment AUTO DIFF Differential Total Cells Counted 100 Neutrophils % (Manual) 56 % (16-70) Band Neutrophils % 37 % (0-6) Lymphocytes % 3 % (9-44) Monocytes % 2 % (0-8) Neutrophils # (Manual) 17.3 TH/MM3 (1.8-7.7) Metamyelocytes 2 % (0-1) Nucleated Red Blood Cells 1 /100 WBC (0-0) Differential Comment FINAL DIFF MANUAL Dohle Bodies PRESENT (NONE SEEN) Platelet Estimate LOW (NORMAL) Platelet Morphology Comment ENLARGED (NORMAL) Ovalocytes 1+ (NORMAL) Prothrombin Time 59.0 SEC (9.8-11.6) Prothromb Time International Ratio 5.9 RATIO Activated Partial Thromboplast Time 76.6 SEC (24.3-30.1) Fibrinogen 586 mg/dL (227-377) Blood Urea Nitrogen 32 MG/DL (7-18) Creatinine 2.19 MG/DL (0.60-1.30) Random Glucose 119 MG/DL (74-106) Total Protein 4.7 GM/DL (6.4-8.2) Albumin 1.9 GM/DL (3.4-5.0) Calcium Level 10.6 MG/DL (8.5-10.1) Phosphorus Level 6.2 MG/DL (2.5-4.9) Magnesium Level 1.3 MG/DL (1.5-2.5) Alkaline Phosphatase 205 U/L (45-117) Aspartate Amino Transf (AST/SGOT) 827 U/L (15-37) Alanine Aminotransferase (ALT/SGPT) 1610 U/L (12-78) Total Bilirubin 1.0 MG/DL (0.2-1.0) Sodium Level 131 MEQ/L (136-145) Potassium Level 3.2 MEQ/L (3.5-5.1) Chloride Level 85 MEQ/L (98-107) Carbon Dioxide Level 18.0 MEQ/L (21.0-32.0) Anion Gap 28 MEQ/L (5-15) Estimat Glomerular Filtration Rate 31 ML/MIN (>89) Random Vancomycin Level 11.7 COMMENT Valproic Acid (Depakene) Level 29 MCG/ML (50-100) Result Diagram: 08/05/17 0425 08/05/17 0425 Microbiology Microbiology Date/Time Source Procedure Growth Status 08/02/17 17:01 Fluid Peritoneal Fluid Fungal Smear - Final NO FUNGAL ELEMENTS SEEN. Resulted 08/02/17 17:01 Fluid Peritoneal Fluid Fungal Culture Pending Resulted 08/02/17 17:01 Fluid Peritoneal Fluid Acid Fast Stain Pending Received 08/02/17 17:01 Fluid Peritoneal Fluid Mycobacterial Culture Pending Received 08/02/17 17:01 Fluid Peritoneal Fluid Gram Stain - Final Complete 08/02/17 17:01 Fluid Peritoneal Fluid Body Fluid Culture - Final Complete Imaging Last Impressions Chest X-Ray 08/05/17 0600 Signed Impressions: CONCLUSION: Interval decrease in left lung base atelectasis. Patchy right lung base parench ymal opacity unchanged. Lower Extremity Ultrasound 08/02/17 0000 Signed Impressions: CONCLUSION: 1. The study is negative for bilateral lower extremity deep venous thrombosis. Chest CT 08/02/17 0000 Signed Impressions: CONCLUSION: 1. Bilateral lower lung consolidation and bilateral small pleural effusions. 2. No evidence of pneumomediastinum. 3. Pneumoperitoneum seen on the upper abdominal images; please see CT abdomen/ pelvis report. Abdomen/Pelvis CT 08/02/17 0000 Signed Impressions: CONCLUSION: 1. There is no evidence for bowel obstruction, adenopathy or aneurysm. 2. Large amount of free intraperitoneal air is identified, exact origin site u ncertain. In addition there is gallbladder wall emphysema noted circumferential ly with an air-fluid level within the gallbladder. Emphysematous cholecystitis with perforation would be the leading differential diagnostic consideration, ho wever bowel perforation is also in the differential diagnosis. 3. There is focal bowel wall thickening involving the mid transverse colon whi ch is nonspecific. An annular constricting neoplasm is difficult to exclude on the basis of this examination. 4. There is a small amount of free fluid in the mesentery, perihepatic and per isplenic regions. Abdomen X-Ray 08/01/17 0000 Signed Impressions: CONCLUSION: Negative KUB. Patient/Family Conference Present at Family Conference: Sherri Melara sister and primary health care surrogate. Fernando Herron brother and Alternate health care surrogate. Family Conference Time (mins): 44 Family Conference Location: Bedside, Consult Room Issues Discussed: * Palliative care role, purpose, approach * Additional medical, psychosocial, and spiritual history * Patients general health, functional status, and cognitive changes in the months leading up to the current hospitalization * Patient/family understanding of the current medical problems * Patient/family understanding of prognosis * Patients goals of care as best understood from advance directives and/or conversations and/or values * Current medical treatment options and benefits/burdens of those options * Likely scenarios comparing ongoing aggressive care with a transition to comfort measures only * Questions answered to the best of my ability * Palliative care contact information provided Assessment and Plan Disease Oriented Problem List: (1) Sepsis (2) Respiratory failure (3) End stage renal failure on dialysis (4) Aortic valve stenosis, critical (5) Schizophrenia Symptom Scale: (1) Dyspnea 0-10 Scale: Unable to quantify Comment: respiratory failure / compassionate extubation. (2) Pain 0-10 Scale: Unable to quantify Comment: abdominal surgery, general debility. (3) Anxiety 0-10 Scale: Unable to quantify Comment: schizofrenia. general decline. compassionate extubation. Pertinent Non-Medical Issues Psychosocial: Spiritual: Buddhism Legal: Healthcare surrogate completed, the latest is completed 05/30/2016 That list Sherri Melara as primary. Alternate Fernando Herron (father) and Clementina Herron (mother) has . Ethical issues impacting care:none Important Contacts Sherri Melara [phone] or [phone] Fernando Herron [phone] or [phone]. Papa Herron Father [phone] Clementinabrett Herron mother [phone] Prognosis Patient with dialysis dependent chronic renal disease is currently in profound sepsis. Patient found to haveave gangrenous right colon and perforated gangrenous small intestine. Pt s/p colectomy, cholecystectomy, and wound VAC placement. Despite medical and surgical intervention patient continued to decline, remains hemodynamically unstable, not a candidate for second surgery. Critical medicine, general medicine, nephrology noted poor prognosis, and pt's condition is not salvageable and is terminal. Code Status: No Code Plan == capacity- no capacity to make medical decisions. == Code: DNR. == goals of care. Spoke with Health Care surrogate Sherri Melara, and Fernando Herron. (pt's only siblings) Patient currently sedated and intubated, unable to elicit history. Patient's family endorse that pt has been very comfortable currently. Pt currently is on fentanyl. We have reviewed living will and health care surrogate form, and readdress code status (advance care planning >18) they maintain a DNR. We reviewed pt's clinical condition and poor prognosis. They have made the decision to transition to comfort measures only. == symptoms, dyspnea/pain, anxiety. We talked discussed plan of treatment for symptoms for compassionate extubation for pain, anxiety, and dyspnea. They are amenable to continue fentanyl drip, schedule ativan, dialudid, for anxiety, pain and sensation of dyspnea. We spoke about prn medication. We talked about after extubation, prognosis could be minuetes to hours. They are amenable to hospice consult should pt survive the night. they decline pastoral care. Thank you for the opportunity to participate in the care of Mr. Herron. Attestation To help prompt me to consider important information that might be impacting today's encounter and assessment, information from prior notes written by myself or my colleagues may have been "brought forward" into today's note. My signature on this note, however, is an attestation that I personally performed the exam, history, and/or decision-making noted today, and, unless otherwise indicated, the interactions with patient, family, and staff as well as the review of records all occurred today. I also attest that the listed assessment and stated plan reflect my best clinical judgment today based on the combination of historical information, prior notes, and today's exam/ interactions. When time spent is documented, it refers only to time spent today by the signer, or if indicated, combined time spent today by collaborating physician/nurse practitioner. Master Lucio MD Aug 05, 2017 12:07
[2017-08-05] MEDS: ESMOLOL DRIP INJ PREMIX 250 ML IV PRN (12:46)
--- NOTE | 2017-08-05 12:58 | HHI.CCPN ---
Subjective Remarks/Hospital Course 56-year-old male with history of end-stage renal disease on hemodialysis Friday , , Friday, Schizophrenia, GERD, esophagitis, type 2 diabetes mellitus, hypertension, aortic stenosis status post TAVR in January of last year presents from [facility] and rehab for evaluation of 3 episodes of coffee-ground emesis that occurred today. Patient states he then developed a severe epigastric pain. This has persisted throughout the afternoon. He reports nausea. He reports generalized weakness and not feeling well. He indicates that he is not making any urine.. He denies any chest pain or tightness. He has no difficulty breathing. He denies any shortness of breath. He was recently hospitalized in early June for severe anemia and GI bleed. He continues to take Plavix and aspirin. 08/02: Patient's respiratory rate in the 40s when seen this a.m. He denied chest pain or abdominal single was throwing up coffee-ground emesis continuously. Decision made to electively intubate. Already had NG tube placed. Prior to intubation, patient became acutely hypotensive with requiring norepinephrine drip at 50 mcg/min. Currently arousable and following commands. 08/03: now in refractory shock. on multiple vasopressors. acidosis is refractory. needs emergent dialysis, but too unstable to tolerate IHD: will need to place vascath for CRRT. taken to OR yesterday, extended right hemicolectomy, small bowel resected, left in discontinuity with open abdomen. + 21L over last 24h. discussed case with surgeon, and will wait until Friday to re -explore abdomen. 08/04: Febrile yesterday 106. Currently hypo-thermic. Plan to return to OR this a.m. if stable. Started on CRRT yesterday. Lactate currently 13.7. Currently receiving fluid. CVP is 10. CRRT adjusted see orders. Subjective 08/05: Family decision for withdrawal of care noted. Articles have been signed. Discussed with Dr. Chavez and palliative care. Lactate remains elevated. On multiple vasopressors Objective Vital Signs Date Time Temp Pulse Resp B/P (MAP) Pulse Ox O2 Delivery O2 Flow Rate FiO2 08/05/17 12:46 82 107/49 08/05/17 12:03 98 50 08/05/17 08:00 96.6 24 08/01/17 22:02 Room Air Intake and Output 08/05/17 08/05/17 08/06/17 08:00 16:00 00:00 Intake Total 1075 ml 545 ml Output Total 370 ml Balance 705 ml 545 ml Result Diagram: 08/05/17 0425 08/05/17 0425 Other Results Microbiology Date/Time Source Procedure Growth Status 08/02/17 10:36 Blood Peripheral Aerobic Blood Culture - Preliminary NO GROWTH IN 3 DAYS Resulted 08/02/17 10:36 Anaerobic Blood Culture - Final Enterobacter Cloacae Clostridium Perfringens Resulted 08/02/17 17:01 Fluid Peritoneal Fluid Fungal Smear - Final NO FUNGAL ELEMENTS SEEN. Resulted 08/02/17 17:01 Fluid Peritoneal Fluid Fungal Culture Pending Resulted 08/02/17 09:55 Sputum Endotracheal Gram Stain - Final Complete 08/02/17 09:55 Sputum Culture - Final S. Aureus Mrsa Complete Imaging Last Impressions Chest X-Ray 08/05/17 0600 Signed Impressions: CONCLUSION: Interval decrease in left lung base atelectasis. Patchy right lung base parench ymal opacity unchanged. Lower Extremity Ultrasound 08/02/17 0000 Signed Impressions: CONCLUSION: 1. The study is negative for bilateral lower extremity deep venous thrombosis. Chest CT 08/02/17 0000 Signed Impressions: CONCLUSION: 1. Bilateral lower lung consolidation and bilateral small pleural effusions. 2. No evidence of pneumomediastinum. 3. Pneumoperitoneum seen on the upper abdominal images; please see CT abdomen/ pelvis report. Abdomen/Pelvis CT 08/02/17 0000 Signed Impressions: CONCLUSION: 1. There is no evidence for bowel obstruction, adenopathy or aneurysm. 2. Large amount of free intraperitoneal air is identified, exact origin site u ncertain. In addition there is gallbladder wall emphysema noted circumferential ly with an air-fluid level within the gallbladder. Emphysematous cholecystitis with perforation would be the leading differential diagnostic consideration, ho wever bowel perforation is also in the differential diagnosis. 3. There is focal bowel wall thickening involving the mid transverse colon whi ch is nonspecific. An annular constricting neoplasm is difficult to exclude on the basis of this examination. 4. There is a small amount of free fluid in the mesentery, perihepatic and per isplenic regions. Abdomen X-Ray 08/01/17 0000 Signed Impressions: CONCLUSION: Negative KUB. Objective Remarks GENERAL: 56-year-old male currently orotracheally intubated, lying in bed 1335 SKIN: Pallor. Focused skin assessment warm/dry. Multiple ecchymotic markings on the abdomen. Patient also has multiple old ecchymotic lesions on the bilateral upper extremities extremities and abdomen. Left upper extremity AV fistula with positive thrill HEAD: Atraumatic. Normocephalic. EYES: Pupils equal and round about 4 mm bilaterally reactive to 3. No scleral icterus. No injection or drainage. Downward gaze ENT: No nasal bleeding or discharge. Mucous membranes moderately moist and pink. NG tube in place NECK: Trachea midline. large neck circumference prevents accurate assessment of JVD. CARDIOVASCULAR: RRR. S1, S2 predose 4. RESPIRATORY: tachypneic. Symmetrical chest excursion. Positive accessory muscle use. GASTROINTESTINAL: open abdomen. wound vac in place. moderate amount of serosanguinous drainage. no guarding. MUSCULOSKELETAL: No obvious deformities. 2+ peripheral edema. NEUROLOGICAL: RASS -3/-4. withdraws to pain weakly. opens eyes. does not follow commands. Urinary Catheter: No Assessment to: Continue Vascular Central Line Catheter: Yes Assessment to: Continue Date of Insertion: Aug 02, 2017 Line: Central Venous Catheter Side: Right Location: Internal, Jugular A/P Assessment and Plan Neuro/Psych: Acute toxic metabolic encephalopathy secondary to underlying illness Schizophrenia Depression disorder NOS History of seizures Currently on fentanyl drip at 50 mg an hour for analgesia while intubated Goal of RASS of 0 change currently on divalproex 500 mg IV twice daily. A.m. level 29 Seizure precautions Ofirmev 1 g IV every 6 hours as needed fever On fluoxetine 20 mg daily, mirtazapine 30 mg a day, lorazepam 1 mg twice daily ziprasidone 100 mg twice daily and hydroxyzine 25 mg twice daily at home for psychiatric medications hold all PO meds while in discontinuity. CV: Refractory septic shock History of hypertension History of recent TAVR Coronary artery disease Lactate acidosis- worsening Elevated troponin Currently on norepinephrine at 35 mcg/min, epinephrine drip at 12 mcg/min and vasopressin drip at 0.04 U/min to maintain mean arterial pressure greater than or equal to 65 On D10 water at 50 cc an hour Lactic acid continues between 13 and 15 Holding clopidogrel 75 mg Aspirin 81 mg daily 2D echocardiogram - normal left ventricular size. Mild concentric left ventricular hypertrophy. The left ventricular systolic function is low normal with an estimated ejection fraction in the range of 50- 55%. The left atrial size is [id number] dilated. The interatrial septum not well visualized. The aortic root and proximal ascending aorta are not well visualized. Severe mitral annular calcification. Mild mitral valve stenosis. 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 Aortic valve area is 1.4 cm. Aortic valve mean gradient is 8 mmHg. No aortic regurg. There is trace tricuspid valve regurgitation. The estimated pulmonary arterial pressure is 40.9 mmHg. The pulmonary valve is not well visualized. The inferior vena cava was not well visualized. Resp: Acute hypoxic and hypercapnic respiratory failure ACV 24/700/50/% Ventilator bundle Albuterol/ipratropium aerosols every 4 hours with albuterol aerosols every 2 hours as needed dyspnea wean fio2 for goal spo2 > 90% Add epoprostenol aerosolized 50,000 ng/kg/min no weaning of mechanical ventilation until refractory shock improves trend abg Follow-up chest x-ray in a.m. 08/06 GI: Hematemesis History of grade C esophagitis History of Reza's esophagus History of erosive gastritis Hiatal hernia Gastroesophageal reflux disease Chronic constipation Hypoalbuminemia Shock Liver with elevated transaminases Severe acute protein calorie malnutrition s/p exploratory laparotomy 08/02 with extended right hemicolectomy/ileocecectomy, cholecystectomy, left in discontinuity, open abdomen with Dr. Kathy MG Exploratory laparotomy right and transverse colon resection, small bowel resection, cholecystectomy, omentectomy and packing of the abdomen with wound VAC, irrigation and wound VAC placement secondary to septic shock hypovolemic shock, hemodynamic instability, intestinal perforation wit perforation of the small intestine with massive spillage, gangrene of the last 4 feet of ileum, gangrene of the ascending colon and proximal transverse colon, gangrene of the gallbladder, peritonitis and sepsis. Currently on pantoprazole 40 mg IV twice daily strict NPO while in discontinuity. Follow-up ammonia level/coags, hepatic function, amylase lipase in a.m. : anuric at baseline. no indication for ortiz catheter. Endo: Secondary hyperparathyroidism Diabetes mellitus type 1.5 treat as diabetes mellitus type 1 Hypoglycemia At home on sliding scale insulin with Novulog 2-10 units Accu-Cheks every 4 hours. Currently in D10 water at 50 cc an hour. Last blood sugar in the 119 Currently hold cinacalcet at 60 mg by tube daily while n.p.o. TSH is 1.14 Renal: End-stage renal disease on hemodialysis Friday//Friday. Refractory acidosis -Continue CRRT. Serial BMP/magnesium phosphorus. -Attempt hypovolemic status with lactic acidosis until cleared Nephrology actively following Heme: Acute blood loss anemia? Coagulopathy elevated INR On ferrous sulfate 325 mg a mill twice daily at home. This currently on hold Transfuse 3 PRBCs and 3 FFP during this hospitalization. ID: Septic Shock secondary to gram-negative drew bacteremia Intra-abdominal sepsis MRSA sputum positive Placed empirically on piperacillin/tazobactam and vancomycin and micafungin Blood cultures 2, influenza and sputum all ordered 08/02 Infectious disease following Pertinent cultures 08/02 -sputum -MRSA 08/02 -blood cultures -Clostridium perfringens, and Enterobacter cloaca Peritoneal fluid/AFB, fungal and Gram stain ordered FEN: Hyper phosphatemia Hyponatremia Hypomagnesia hold while in discontinuity: Sevelamer 800 mg 3 times daily/home medication MSK: Holding cholecalciferol 2000 units daily Okay to hold vitamin C 5 mg twice daily Okay to hold Aracely-Annelise 1 tablet daily Access -Right IJ CVL day #4 placed 08/02 Left femoral hemodialysis catheter day #3 placed 08/03 Prophylaxis -GI -iv bid pantoprazole -DVT -SCD/holding pharmacological prophylaxis in light of acute hemorrhage Critical Care: The total critical care time was 35 minutes. Time to perform other separately billable procedures was not included in the critical care time. Discussed with healthcare proxy/palliative care, Dr. Irving Requesting withdrawal of care. Articles signed. Joselo Grissom MD Aug 05, 2017 12:58
[2017-08-05] MEDS ORDERED: HYOSCYAMINE 0.5 MG/ML AMP IV PUSH ONE (13:45)
[2017-08-05] MEDS ORDERED: fentaNYL DRIP 250 ML IV PRN (13:45)
[2017-08-05] MEDS ORDERED: LORazepam 2 MG/ML VIAL IV PUSH ONE ×2 (13:45→14:00)
[2017-08-05] MEDS ORDERED: HYDROmorphone HCL PF 2 MG/ML VIAL IV PUSH ONE ×2 (13:45→14:00)
--- NOTE | 2017-08-05 13:54 | PD.CAR.PN ---
CVT Progress Note Subjective/Hospital Course: 56-year-old male with gangrenous right colon and perforated gangrenous small intestine as well as the gallbladder status post colectomy cholecystectomy and wound VAC placement Patient remains very critical Hemodynamically unstable on vasopressin/Levophed/Maximo-Synephrine and dopamine. Despite all the support patient is gradually deteriorating Remains acidotic with high lactic acid This patient has negligent chance of meaningful recovery and despite all the measures he appears to be in the irreversible systemic shock. I do not believe there is a reasonable chance of reaching points of resuscitation necessary for the patient to overcome this Should patient improved some I will take him back to the operating room for washout removal of the wound VAC and closure however right now patient is not stable enough for any of this Heroic attempts by the [facility] advisors team are greatly appreciated and respected Continue to follow with you 08/04/2017 Patient somewhat improved overnight but still remains hemodynamically unstable On vasopressin/Levophed/Maximo-Synephrine/dopamine Abdomen is soft and patulous and wound VAC drainage is serosanguineous Patient at this point is not stable enough to undergo second-look operation however considering that he is improving second look operation is scheduled for tomorrow at which point in best case scenario , he will be washed out abdomen closed and bowel reconnected. This is provided that we do not find more necrotic bowel at which point of course further resection of the bowel would be necessary Overall survival in this situation is very low but will make every effort to achieve positive outcome Tentatively planning second-look operation tomorrow 08/05/2017 Patient remains hemodynamically unstable in multiorgan failure At this point is imminent despite all the measures I discussed the care with the family and explained the inevitability of the current situation. Palliative care consult is greatly appreciated Discussed care with [facility] advisors Dr. Grissom. Family chose to withdraw care at this time Objective: Vital Signs Date Time Temp Pulse Resp B/P (MAP) Pulse Ox O2 Delivery O2 Flow Rate FiO2 08/05/17 13:00 83 97/41 08/05/17 12:46 82 107/49 08/05/17 12:46 83 104/63 08/05/17 12:03 98 50 08/05/17 12:00 96.0 82 24 107/49 (68) 99 08/05/17 12:00 100 08/05/17 11:30 80 114/50 08/05/17 11:17 84 121/55 08/05/17 10:00 82 122/53 08/05/17 09:46 83 108/51 08/05/17 09:09 99 50 08/05/17 09:00 85 98/47 08/05/17 08:00 75 08/05/17 08:00 100 08/05/17 08:00 96.6 77 24 127/55 (79) 99 08/05/17 06:45 79 96/46 08/05/17 06:21 77 116/54 08/05/17 05:57 81 90/45 08/05/17 04:00 100 08/05/17 04:00 96.9 76 24 119/72 (88) 100 103/48 (66) 08/05/17 03:41 76 98/45 08/05/17 03:06 99 95 08/05/17 01:25 24 08/05/17 00:26 96 100 08/05/17 00:00 100 08/05/17 00:00 97.6 80 24 102/70 (81) 100 117/55 (75) 08/04/17 23:09 80 104/50 08/04/17 23:08 81 107/52 08/04/17 21:29 80 113/56 08/04/17 20:52 96 100 08/04/17 20:45 80 117/50 08/04/17 20:29 78 80/52 08/04/17 20:00 100 08/04/17 20:00 98.0 81 24 106/71 (83) 100 115/56 (75) 08/04/17 19:36 81 114/58 08/04/17 18:50 82 106/53 08/04/17 17:31 86 97/55 08/04/17 17:00 121 84/51 08/04/17 16:28 95 100 08/04/17 16:00 100 08/04/17 16:00 97.2 87 24 91/48 (62) 100 08/04/17 16:00 87 08/04/17 15:19 84 92/51 08/04/17 15:03 85 97/54 08/04/17 14:25 81 08/04/17 14:05 106 78/45 08/04/17 14:00 128 Labs: Laboratory Tests Test 08/05/17 04:08 08/05/17 04:25 Blood Gas Puncture Site LATOSHA Blood Gas Patient Temperature 98.6 Blood Gas HCO3 19 mmol/L (22-26) Blood Gas Base Excess -3.4 mmol/L (-2-2) Blood Gas Oxygen Saturation 98 % (90-100) Arterial Blood pH 7.50 (7.380-7.420) Arterial Blood Partial Pressure CO2 25 mmHg (38-42) Arterial Blood Partial Pressure O2 379 mmHg (61-120) Arterial Blood Oxygen Content 16.1 Vol % (12.0-20.0) Arterial Blood Carboxyhemoglobin 0.8 % (0-4) Arterial Blood Methemoglobin 1.1 % (0-2) Blood Gas Hemoglobin 11.0 G/DL (12.0-16.0) Oxygen Delivery Device VENTILATOR Blood Gas Ventilator Setting AC/24/700/PEEP 10 Blood Gas Inspired Oxygen 95 % White Blood Count 18.2 TH/MM3 (4.0-11.0) Red Blood Count 3.18 MIL/MM3 (4.50-5.90) Hemoglobin 9.4 GM/DL (13.0-17.0) Hematocrit 28.1 % (39.0-51.0) Mean Corpuscular Volume 88.4 FL (80.0-100.0) Mean Corpuscular Hemoglobin 29.4 PG (27.0-34.0) Mean Corpuscular Hemoglobin Concent 33.3 % (32.0-36.0) Red Cell Distribution Width 16.9 % (11.6-17.2) Platelet Count 44 TH/MM3 (150-450) Mean Platelet Volume 10.7 FL (7.0-11.0) CBC Comment AUTO DIFF Differential Total Cells Counted 100 Neutrophils % (Manual) 56 % (16-70) Band Neutrophils % 37 % (0-6) Lymphocytes % 3 % (9-44) Monocytes % 2 % (0-8) Neutrophils # (Manual) 17.3 TH/MM3 (1.8-7.7) Metamyelocytes 2 % (0-1) Nucleated Red Blood Cells 1 /100 WBC (0-0) Differential Comment FINAL DIFF MANUAL Dohle Bodies PRESENT (NONE SEEN) Platelet Estimate LOW (NORMAL) Platelet Morphology Comment ENLARGED (NORMAL) Ovalocytes 1+ (NORMAL) Prothrombin Time 59.0 SEC (9.8-11.6) Prothromb Time International Ratio 5.9 RATIO Activated Partial Thromboplast Time 76.6 SEC (24.3-30.1) Fibrinogen 586 mg/dL (227-377) Blood Urea Nitrogen 32 MG/DL (7-18) Creatinine 2.19 MG/DL (0.60-1.30) Random Glucose 119 MG/DL (74-106) Total Protein 4.7 GM/DL (6.4-8.2) Albumin 1.9 GM/DL (3.4-5.0) Calcium Level 10.6 MG/DL (8.5-10.1) Phosphorus Level 6.2 MG/DL (2.5-4.9) Magnesium Level 1.3 MG/DL (1.5-2.5) Alkaline Phosphatase 205 U/L (45-117) Aspartate Amino Transf (AST/SGOT) 827 U/L (15-37) Alanine Aminotransferase (ALT/SGPT) 1610 U/L (12-78) Total Bilirubin 1.0 MG/DL (0.2-1.0) Sodium Level 131 MEQ/L (136-145) Potassium Level 3.2 MEQ/L (3.5-5.1) Chloride Level 85 MEQ/L (98-107) Carbon Dioxide Level 18.0 MEQ/L (21.0-32.0) Anion Gap 28 MEQ/L (5-15) Estimat Glomerular Filtration Rate 31 ML/MIN (>89) Lactic Acid Level 13.7 mmol/L (0.4-2.0) Random Vancomycin Level 11.7 COMMENT Valproic Acid (Depakene) Level 29 MCG/ML (50-100) Result Diagram: 08/05/17 0425 08/05/17 0425 Mauro Campos MD Aug 05, 2017 13:54
[2017-08-05] MEDS ORDERED: LORazepam 2 MG/ML VIAL IV PUSH PRN ×3 (14:15)
[2017-08-05] MEDS ORDERED: HYDROmorphone HCL PF 2 MG/ML VIAL IV PUSH PRN ×2 (14:15)
[2017-08-05] MEDS ORDERED: ACETAMINOPHEN 650 MG SUPP RECTAL PRN (14:15)
[2017-08-05] MEDS ORDERED: HYOSCYAMINE 0.5 MG/ML AMP IV PUSH PRN (14:15)
[2017-08-05] MEDS ORDERED: FUROSEMIDE 20 MG/2 ML VIAL IV PUSH PRN (14:15)
[2017-08-05] MEDS ORDERED: BISACODYL 10 MG SUPP RECTAL PRN (14:15)
[2017-08-05] MEDS ORDERED: LORazepam 2 MG/ML VIAL IV PUSH SCH (16:00)
[2017-08-05] MEDS ORDERED: HYDROmorphone HCL PF 2 MG/ML VIAL IV PUSH SCH (16:00)
--- NOTE | 2017-08-05 17:20 | HHI.DS ---
Summary Note Date of : Aug 05, 2017 Time Of : 1629 Admission Date Aug 01, 2017 at 20:43 Admitting Diagnosis GI bleed; hypotension Diagnosis at Time of : (1) Acute respiratory failure with hypoxia ICD Code: J96.01 - Acute respiratory failure with hypoxia Diagnosis: Principal (2) Lactic acidosis ICD Code: E87.2 - Acidosis Diagnosis: Principal (3) Bacteremia ICD Code: R78.81 - Bacteremia Diagnosis: Principal (4) Severe sepsis ICD Code: A41.9 - Sepsis, unspecified organism; R65.20 - Severe sepsis without septic shock Diagnosis: Principal (5) Bowel perforation ICD Code: K63.1 - Perforation of intestine (nontraumatic) Diagnosis: Principal (6) S/P TAVR (transcatheter aortic valve replacement) ICD Code: Z95.2 - Presence of prosthetic heart valve Diagnosis: Secondary (7) Anemia ICD Code: D64.9 - Anemia Diagnosis: Secondary (8) End stage renal failure on dialysis ICD Code: N18.6 - End stage renal failure on dialysis; Z99.2 - Dependence on renal dialysis Diagnosis: Secondary Procedures DATE OF OPERATION: 08/02/2017 PREOPERATIVE DIAGNOSIS: Septic shock, hypovolemic shock, hemodynamic instability, intestinal perforation. POSTOPERATIVE DIAGNOSES: 1. Septic shock hypovolemic shock, hemodynamic instability, intestinal perforation. 2. Perforation of the small intestine with massive spillage, gangrene of the last 4 feet of ileum, gangrene of the ascending colon and proximal transverse colon, gangrene of the gallbladder, peritonitis and sepsis. OPERATIVE PROCEDURES: Exploratory laparotomy right and transverse colon resection, small bowel resection, cholecystectomy, omentectomy and packing of the abdomen with wound VAC, irrigation and wound VAC placement. Brief History 56-year-old male with history of end-stage renal disease on hemodialysis Friday , , Friday, Schizophrenia, GERD, esophagitis, type 2 diabetes mellitus, hypertension, aortic stenosis status post TAVR in January of last year presents from [facility] re[facility] for evaluation of 3 episodes of coffee-ground emesis that occurred today. Patient states he then developed a severe epigastric pain. This has persisted throughout the afternoon. He reports nausea. He reports generalized weakness and not feeling well. He indicates that he is not making any urine.. He denies any chest pain or tightness. He has no difficulty breathing. He denies any shortness of breath. He was recently hospitalized in early June for severe anemia and GI bleed. He continues to take Plavix and aspirin. CBC/BMP: 08/05/17 0425 08/05/17 0425 Significant Findings Laboratory Tests Test 08/02/17 19:38 08/02/17 20:50 08/03/17 01:30 08/03/17 04:02 Hemoglobin 9.7 GM/DL (13.0-17.0) 10.2 GM/DL (13.0-17.0) Hematocrit 29.4 % (39.0-51.0) 31.3 % (39.0-51.0) Prothrombin Time 18.9 SEC (9.8-11.6) 19.2 SEC (9.8-11.6) Activated Partial Thromboplast Time 39.2 SEC (24.3-30.1) 43.7 SEC (24.3-30.1) Fibrinogen 582 mg/dL (227-377) 669 mg/dL (227-377) Blood Urea Nitrogen 81 MG/DL (7-18) 78 MG/DL (7-18) Creatinine 6.31 MG/DL (0.60-1.30) 5.94 MG/DL (0.60-1.30) Random Glucose 49 MG/DL (74-106) 71 MG/DL (74-106) Phosphorus Level 8.4 MG/DL (2.5-4.9) 8.0 MG/DL (2.5-4.9) Sodium Level 146 MEQ/L (136-145) 147 MEQ/L (136-145) Chloride Level 110 MEQ/L (98-107) 113 MEQ/L (98-107) Carbon Dioxide Level 16.6 MEQ/L (21.0-32.0) 15.8 MEQ/L (21.0-32.0) Anion Gap 19 MEQ/L (5-15) 18 MEQ/L (5-15) Estimat Glomerular Filtration Rate 9 ML/MIN (>89) 10 ML/MIN (>89) Lactic Acid Level 6.3 mmol/L (0.4-2.0) 6.5 mmol/L (0.4-2.0) Troponin I 0.33 NG/ML (0.02-0.05) 0.36 NG/ML (0.02-0.05) Blood Gas HCO3 14 mmol/L (22-26) 14 mmol/L (22-26) Blood Gas Base Excess -12.1 mmol/L (-2-2) -12.2 mmol/L (-2-2) Arterial Blood pH 7.22 (7.380-7.420) 7.22 (7.380-7.420) Arterial Blood Partial Pressure CO2 36 mmHg (38-42) 36 mmHg (38-42) Blood Gas Hemoglobin 10.1 G/DL (12.0-16.0) 9.1 G/DL (12.0-16.0) Red Blood Count 3.42 MIL/MM3 (4.50-5.90) Red Cell Distribution Width 18.2 % (11.6-17.2) Neutrophils (%) (Auto) 92.7 % (16.0-70.0) Lymphocytes (%) (Auto) 4.4 % (9.0-44.0) Lymphocytes # (Auto) 0.2 TH/MM3 (1.0-4.8) Band Neutrophils % 28 % (0-6) Nucleated Red Blood Cells 9 /100 WBC (0-0) Toxic Granulation 2+ (NORMAL) Dohle Bodies PRESENT (NONE SEEN) Basophilic Stippling FAINT (NORMAL) Ovalocytes 1+ (NORMAL) Total Protein 4.4 GM/DL (6.4-8.2) Albumin 1.5 GM/DL (3.4-5.0) Alkaline Phosphatase 146 U/L (45-117) Aspartate Amino Transf (AST/SGOT) 1610 U/L (15-37) Alanine Aminotransferase (ALT/SGPT) 1263 U/L (12-78) Potassium Level 5.4 MEQ/L (3.5-5.1) Cholesterol Level LESS THAN 50 MG/DL HDL Cholesterol 15.7 MG/DL (40.0-60.0) Valproic Acid (Depakene) Level 7 MCG/ML (50-100) Arterial Blood Partial Pressure O2 276 mmHg (61-120) Test 08/03/17 08:24 08/03/17 09:32 08/03/17 15:00 08/03/17 15:38 Hemoglobin 9.5 GM/DL (13.0-17.0) 8.3 GM/DL (13.0-17.0) Hematocrit 29.1 % (39.0-51.0) 25.4 % (39.0-51.0) Lactic Acid Level 6.2 mmol/L (0.4-2.0) 9.0 mmol/L (0.4-2.0) Blood Gas HCO3 13 mmol/L (22-26) 13 mmol/L (22-26) Blood Gas Base Excess -11.7 mmol/L (-2-2) -11.6 mmol/L (-2-2) Arterial Blood pH 7.31 (7.380-7.420) 7.32 (7.380-7.420) Arterial Blood Partial Pressure CO2 27 mmHg (38-42) 26 mmHg (38-42) Arterial Blood Partial Pressure O2 153 mmHg (61-120) 240 mmHg (61-120) Blood Gas Hemoglobin 9.0 G/DL (12.0-16.0) 7.8 G/DL (12.0-16.0) Arterial Blood Oxygen Content 11.3 Vol % (12.0-20.0) Test 08/04/17 04:30 08/04/17 05:15 08/04/17 08:55 08/04/17 09:07 Blood Urea Nitrogen 52 MG/DL (7-18) 47 MG/DL (7-18) Creatinine 3.73 MG/DL (0.60-1.30) 3.33 MG/DL (0.60-1.30) Random Glucose 161 MG/DL (74-106) 171 MG/DL (74-106) Total Protein 4.8 GM/DL (6.4-8.2) Albumin 2.2 GM/DL (3.4-5.0) Calcium Level 10.6 MG/DL (8.5-10.1) 10.4 MG/DL (8.5-10.1) Phosphorus Level 7.5 MG/DL (2.5-4.9) Magnesium Level 1.4 MG/DL (1.5-2.5) Alkaline Phosphatase 152 U/L (45-117) Aspartate Amino Transf (AST/SGOT) 1539 U/L (15-37) Alanine Aminotransferase (ALT/SGPT) 2207 U/L (12-78) Total Bilirubin 1.1 MG/DL (0.2-1.0) Sodium Level 135 MEQ/L (136-145) 134 MEQ/L (136-145) Chloride Level 93 MEQ/L (98-107) 89 MEQ/L (98-107) Carbon Dioxide Level 14.5 MEQ/L (21.0-32.0) 16.6 MEQ/L (21.0-32.0) Anion Gap 28 MEQ/L (5-15) 28 MEQ/L (5-15) Estimat Glomerular Filtration Rate 17 ML/MIN (>89) 19 ML/MIN (>89) Lactic Acid Level 13.7 mmol/L (0.4-2.0) 14.0 mmol/L (0.4-2.0) Blood Gas HCO3 17 mmol/L (22-26) Blood Gas Base Excess -6.4 mmol/L (-2-2) Arterial Blood Partial Pressure CO2 27 mmHg (38-42) Arterial Blood Partial Pressure O2 250 mmHg (61-120) Blood Gas Hemoglobin 9.6 G/DL (12.0-16.0) White Blood Count 12.1 TH/MM3 (4.0-11.0) Red Blood Count 3.18 MIL/MM3 (4.50-5.90) Hemoglobin 9.6 GM/DL (13.0-17.0) Hematocrit 28.2 % (39.0-51.0) Red Cell Distribution Width 17.4 % (11.6-17.2) Platelet Count 58 TH/MM3 (150-450) Band Neutrophils % 26 % (0-6) Lymphocytes % 6 % (9-44) Monocytes % 18 % (0-8) Neutrophils # (Manual) 9.2 TH/MM3 (1.8-7.7) Nucleated Red Blood Cells 4 /100 WBC (0-0) Toxic Granulation 1+ (NORMAL) Toxic Vacuolation PRESENT (NONE SEEN) Platelet Estimate LOW (NORMAL) Prothrombin Time 28.1 SEC (9.8-11.6) Activated Partial Thromboplast Time 72.0 SEC (24.3-30.1) Fibrinogen 607 mg/dL (227-377) Lactate Dehydrogenase 564 U/L (87-241) Ammonia 175 MCMOL/L (11-32) Lipase 19 U/L (73-393) Phenytoin (Dilantin) Level LESS THAN 0.4 MCG/ML Test 08/04/17 10:55 08/04/17 15:15 08/04/17 23:58 08/05/17 04:08 Red Blood Count 2.86 MIL/MM3 (4.50-5.90) 2.96 MIL/MM3 (4.50-5.90) Hemoglobin 8.7 GM/DL (13.0-17.0) 8.7 GM/DL (13.0-17.0) 9.2 GM/DL (13.0-17.0) Hematocrit 25.1 % (39.0-51.0) 26.3 % (39.0-51.0) 27.7 % (39.0-51.0) Platelet Count 52 TH/MM3 (150-450) 49 TH/MM3 (150-450) Band Neutrophils % 50 % (0-6) Lymphocytes % 3 % (9-44) Monocytes % 11 % (0-8) Neutrophils # (Manual) 9.0 TH/MM3 (1.8-7.7) Nucleated Red Blood Cells 4 /100 WBC (0-0) Toxic Granulation 1+ (NORMAL) Toxic Vacuolation PRESENT (NONE SEEN) Platelet Estimate LOW (NORMAL) Phosphorus Level 6.5 MG/DL (2.5-4.9) Magnesium Level 1.4 MG/DL (1.5-2.5) Troponin I 0.31 NG/ML (0.02-0.05) White Blood Count 13.1 TH/MM3 (4.0-11.0) Lactic Acid Level 14.5 mmol/L (0.4-2.0) 14.9 mmol/L (0.4-2.0) Blood Gas HCO3 19 mmol/L (22-26) Blood Gas Base Excess -3.4 mmol/L (-2-2) Arterial Blood pH 7.50 (7.380-7.420) Arterial Blood Partial Pressure CO2 25 mmHg (38-42) Arterial Blood Partial Pressure O2 379 mmHg (61-120) Blood Gas Hemoglobin 11.0 G/DL (12.0-16.0) Test 08/05/17 04:25 White Blood Count 18.2 TH/MM3 (4.0-11.0) Red Blood Count 3.18 MIL/MM3 (4.50-5.90) Hemoglobin 9.4 GM/DL (13.0-17.0) Hematocrit 28.1 % (39.0-51.0) Platelet Count 44 TH/MM3 (150-450) Band Neutrophils % 37 % (0-6) Lymphocytes % 3 % (9-44) Neutrophils # (Manual) 17.3 TH/MM3 (1.8-7.7) Metamyelocytes 2 % (0-1) Nucleated Red Blood Cells 1 /100 WBC (0-0) Dohle Bodies PRESENT (NONE SEEN) Platelet Estimate LOW (NORMAL) Platelet Morphology Comment ENLARGED (NORMAL) Ovalocytes 1+ (NORMAL) Prothrombin Time 59.0 SEC (9.8-11.6) Activated Partial Thromboplast Time 76.6 SEC (24.3-30.1) Fibrinogen 586 mg/dL (227-377) Blood Urea Nitrogen 32 MG/DL (7-18) Creatinine 2.19 MG/DL (0.60-1.30) Random Glucose 119 MG/DL (74-106) Total Protein 4.7 GM/DL (6.4-8.2) Albumin 1.9 GM/DL (3.4-5.0) Calcium Level 10.6 MG/DL (8.5-10.1) Phosphorus Level 6.2 MG/DL (2.5-4.9) Magnesium Level 1.3 MG/DL (1.5-2.5) Alkaline Phosphatase 205 U/L (45-117) Aspartate Amino Transf (AST/SGOT) 827 U/L (15-37) Alanine Aminotransferase (ALT/SGPT) 1610 U/L (12-78) Sodium Level 131 MEQ/L (136-145) Potassium Level 3.2 MEQ/L (3.5-5.1) Chloride Level 85 MEQ/L (98-107) Carbon Dioxide Level 18.0 MEQ/L (21.0-32.0) Anion Gap 28 MEQ/L (5-15) Estimat Glomerular Filtration Rate 31 ML/MIN (>89) Lactic Acid Level 13.7 mmol/L (0.4-2.0) Valproic Acid (Depakene) Level 29 MCG/ML (50-100) Imaging Last Impressions Chest X-Ray 08/05/17 0600 Signed Impressions: CONCLUSION: Interval decrease in left lung base atelectasis. Patchy right lung base parench ymal opacity unchanged. Lower Extremity Ultrasound 08/02/17 0000 Signed Impressions: CONCLUSION: 1. The study is negative for bilateral lower extremity deep venous thrombosis. Chest CT 08/02/17 Signed Impressions: CONCLUSION: 1. Bilateral lower lung consolidation and bilateral small pleural effusions. 2. No evidence of pneumomediastinum. 3. Pneumoperitoneum seen on the upper abdominal images; please see CT abdomen/ pelvis report. Abdomen/Pelvis CT 08/02/17 Signed Impressions: CONCLUSION: 1. There is no evidence for bowel obstruction, adenopathy or aneurysm. 2. Large amount of free intraperitoneal air is identified, exact origin site u ncertain. In addition there is gallbladder wall emphysema noted circumferential ly with an air-fluid level within the gallbladder. Emphysematous cholecystitis with perforation would be the leading differential diagnostic consideration, ho wever bowel perforation is also in the differential diagnosis. 3. There is focal bowel wall thickening involving the mid transverse colon whi ch is nonspecific. An annular constricting neoplasm is difficult to exclude on the basis of this examination. 4. There is a small amount of free fluid in the mesentery, perihepatic and per isplenic regions. Abdomen X-Ray 08/01/17 Signed Impressions: CONCLUSION: Negative KUB. Hospital Course Neuro/Psych: Acute toxic metabolic encephalopathy secondary to underlying illness Schizophrenia Depression disorder NOS History of seizures Currently on fentanyl drip at 50 mg an hour for analgesia while intubated Goal of RASS of 0 change currently on divalproex 500 mg IV twice daily. A.m. level 29 Seizure precautions Ofirmev 1 g IV every 6 hours as needed fever On fluoxetine 20 mg daily, mirtazapine 30 mg a day, lorazepam 1 mg twice daily ziprasidone 100 mg twice daily and hydroxyzine 25 mg twice daily at home for psychiatric medications hold all PO meds while in discontinuity. CV: Refractory septic shock History of hypertension History of recent TAVR Coronary artery disease Lactate acidosis- worsening Elevated troponin Currently on norepinephrine at 35 mcg/min, epinephrine drip at 12 mcg/min and vasopressin drip at 0.04 U/min to maintain mean arterial pressure greater than or equal to 65 On D10 water at 50 cc an hour Lactic acid continues between 13 and 15 Holding clopidogrel 75 mg Aspirin 81 mg daily 2D echocardiogram - normal left ventricular size. Mild concentric left ventricular hypertrophy. The left ventricular systolic function is low normal with an estimated ejection fraction in the range of 50- 55%. The left atrial size is [id number] dilated. The interatrial septum not well visualized. The aortic root and proximal ascending aorta are not well visualized. Severe mitral annular calcification. Mild mitral valve stenosis. 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 Aortic valve area is 1.4 cm. Aortic valve mean gradient is 8 mmHg. No aortic regurg. There is trace tricuspid valve regurgitation. The estimated pulmonary arterial pressure is 40.9 mmHg. The pulmonary valve is not well visualized. The inferior vena cava was not well visualized. Resp: Acute hypoxic and hypercapnic respiratory failure ACV 24/700/50/% Ventilator bundle Albuterol/ipratropium aerosols every 4 hours with albuterol aerosols every 2 hours as needed dyspnea wean fio2 for goal spo2 > 90% Add epoprostenol aerosolized 50,000 ng/kg/min no weaning of mechanical ventilation until refractory shock improves trend abg Follow-up chest x-ray in a.m. 08/06 GI: Hematemesis History of grade C esophagitis History of Reza's esophagus History of erosive gastritis Hiatal hernia Gastroesophageal reflux disease Chronic constipation Hypoalbuminemia Shock Liver with elevated transaminases Severe acute protein calorie malnutrition s/p exploratory laparotomy 08/02 with extended right hemicolectomy/ileocecectomy, cholecystectomy, left in discontinuity, open abdomen with Dr. Kathy MG Exploratory laparotomy right and transverse colon resection, small bowel resection, cholecystectomy, omentectomy and packing of the abdomen with wound VAC, irrigation and wound VAC placement secondary to septic shock hypovolemic shock, hemodynamic instability, intestinal perforation wit perforation of the small intestine with massive spillage, gangrene of the last 4 feet of ileum, gangrene of the ascending colon and proximal transverse colon, gangrene of the gallbladder, peritonitis and sepsis. Currently on pantoprazole 40 mg IV twice daily strict NPO while in discontinuity. Follow-up ammonia level/coags, hepatic function, amylase lipase in a.m. : anuric at baseline. no indication for ortiz catheter. Endo: Secondary hyperparathyroidism Diabetes mellitus type 1.5 treat as diabetes mellitus type 1 Hypoglycemia At home on sliding scale insulin with Novulog 2-10 units Accu-Cheks every 4 hours. Currently in D10 water at 50 cc an hour. Last blood sugar in the 119 Currently hold cinacalcet at 60 mg by tube daily while n.p.o. TSH is 1.14 Renal: End-stage renal disease on hemodialysis Friday//Friday. Refractory acidosis -Continue CRRT. Serial BMP/magnesium phosphorus. -Attempt hypovolemic status with lactic acidosis until cleared Nephrology actively following Heme: Acute blood loss anemia? Coagulopathy elevated INR On ferrous sulfate 325 mg a mill twice daily at home. This currently on hold Transfuse 3 PRBCs and 3 FFP during this hospitalization. ID: Septic Shock secondary to gram-negative drew bacteremia Intra-abdominal sepsis MRSA sputum positive Placed empirically on piperacillin/tazobactam and vancomycin and micafungin Blood cultures 2, influenza and sputum all ordered 08/02 Infectious disease following Pertinent cultures 08/02 -sputum -MRSA 08/02 -blood cultures -Clostridium perfringens, and Enterobacter cloaca Peritoneal fluid/AFB, fungal and Gram stain ordered FEN: Hyper phosphatemia Hyponatremia Hypomagnesia hold while in discontinuity: Sevelamer 800 mg 3 times daily/home medication MSK: Holding cholecalciferol 2000 units daily Okay to hold vitamin C 5 mg twice daily Okay to hold Aracely-Annelise 1 tablet daily Access -Right IJ CVL day #4 placed 08/02 Left femoral hemodialysis catheter day #3 placed 08/03 Prophylaxis -GI -iv bid pantoprazole -DVT -SCD/holding pharmacological prophylaxis in light of acute hemorrhage Critical Care: The total critical care time was 35 minutes. Time to perform other separately billable procedures was not included in the critical care time. Discussed with healthcare proxy/palliative care, Dr. Irving Requesting withdrawal of care. Articles signed. Joselo Grissom MD Aug 05, 2017 17:20
== END 2017-08-05 19:00 | disposition expired | DRG 329 ==
LOC: NEPE 17:31 → NEDA 20:43 → HIMN 22:10 → N03B 08-02 16:05 → N03A 08-02 17:42
PROVIDERS: ADMIT Internal Medicine Critical Care Medicine; ATTEND Internal Medicine Critical Care Medicine
PROC: 5A1D70Z Performance of Urinary Filtration, Intermittent, Less than 6 Hours Per Day (ICD-10-PCS; principal; 2017-08-01)
PROC: 30233N1 Transfusion of Nonautologous Red Blood Cells into Peripheral Vein, Percutaneous Approach (ICD-10-PCS; 2017-08-01)
PROC: 30233K1 Transfusion of Nonautologous Frozen Plasma into Peripheral Vein, Percutaneous Approach (ICD-10-PCS; 2017-08-02)
PROC: 0D9670Z Drainage of Stomach with Drainage Device, Via Natural or Artificial Opening (ICD-10-PCS; 2017-08-02)
PROC: 0DBF0ZZ Excision of Right Large Intestine, Open Approach (ICD-10-PCS; 2017-08-02)
PROC: 0DB80ZZ Excision of Small Intestine, Open Approach (ICD-10-PCS; 2017-08-02)
PROC: 0DBL0ZZ Excision of Transverse Colon, Open Approach (ICD-10-PCS; 2017-08-02)
PROC: 0FT40ZZ Resection of Gallbladder, Open Approach (ICD-10-PCS; 2017-08-02)
PROC: 0DBU0ZZ Excision of Omentum, Open Approach (ICD-10-PCS; 2017-08-02)
PROC: 02HV33Z Insertion of Infusion Device into Superior Vena Cava, Percutaneous Approach (ICD-10-PCS; 2017-08-02)
PROC: 5A1945Z Respiratory Ventilation, 24-96 Consecutive Hours (ICD-10-PCS; 2017-08-02)
PROC: 0BH17EZ Insertion of Endotracheal Airway into Trachea, Via Natural or Artificial Opening (ICD-10-PCS; 2017-08-02)
PROC: 06HM33Z Insertion of Infusion Device into Right Femoral Vein, Percutaneous Approach (ICD-10-PCS; 2017-08-03)
DX: K63.1 Perforation of intestine (nontraumatic) (principal); N18.6 End stage renal disease; A41.50 Gram-negative sepsis, unspecified; J96.02 Acute respiratory failure with hypercapnia; K72.00 Acute and subacute hepatic failure without coma; D65 Disseminated intravascular coagulation [defibrination syndrome]; R65.21 Severe sepsis with septic shock; K65.0 Generalized (acute) peritonitis; G92 Toxic encephalopathy; K92.0 Hematemesis; E43 Unspecified severe protein-calorie malnutrition; K55.029 Acute infarction of small intestine, extent unspecified; K55.049 Acute infarction of large intestine, extent unspecified; N17.9 Acute kidney failure, unspecified; I13.2 Hypertensive heart and chronic kidney disease with heart failure and with stage 5 chronic kidney disease, or end stage renal disease; K92.2 Gastrointestinal hemorrhage, unspecified; E87.2 Acidosis; I50.32 Chronic diastolic (congestive) heart failure; E87.1 Hypo-osmolality and hyponatremia; K81.0 Acute cholecystitis; N25.81 Secondary hyperparathyroidism of renal origin; J98.11 Atelectasis; D62 Acute posthemorrhagic anemia; F20.9 Schizophrenia, unspecified; E78.5 Hyperlipidemia, unspecified; F32.9 Major depressive disorder, single episode, unspecified; F41.9 Anxiety disorder, unspecified; H91.90 Unspecified hearing loss, unspecified ear; I25.10 Atherosclerotic heart disease of native coronary artery without angina pectoris; Z79.4 Long term (current) use of insulin; Z80.0 Family history of malignant neoplasm of digestive organs; Z80.3 Family history of malignant neoplasm of breast; Z85.828 Personal history of other malignant neoplasm of skin; Z95.2 Presence of prosthetic heart valve; Z96.649 Presence of unspecified artificial hip joint; Z99.2 Dependence on renal dialysis; K21.0 Gastro-esophageal reflux disease with esophagitis; R00.0 Tachycardia, unspecified; E11.649 Type 2 diabetes mellitus with hypoglycemia without coma; E83.39 Other disorders of phosphorus metabolism; E83.42 Hypomagnesemia; I45.4 Nonspecific intraventricular block; Z51.5 Encounter for palliative care; Z66 Do not resuscitate; K44.9 Diaphragmatic hernia without obstruction or gangrene; K59.09 Other constipation; K22.70 Barrett's esophagus without dysplasia; R57.1 Hypovolemic shock; K66.8 Other specified disorders of peritoneum; R74.8 Abnormal levels of other serum enzymes
CPT/HCPCS: 31500; 36430; 36556; 36620; 71045; 71046; 71250; 74018; 74176; 76937; 80048; 80053; 80061; 80074; 80164; 80185; 80202; 82140; 82150; 82533; 82550; 82552; 82805; 82948; 83605; 83615; 83690; 83735; 84100; 84443; 84484; 85007; 85014; 85018; 85025; 85027; 85384; 85610; 85730; 86403; 86850; 86900; 86901; 86920; 86922; 86927; 87015; 87040; 87070; 87077; 87102; 87116; 87147; 87186; 87205; 87206; 87641; 87804; 88304; 88305; 88309; 93005; 93306; 93970; 94002; 94003; 94640; 94664; 94799; 96361; 96374; 96375; C9113; J0153; J0171; J0610; J1160; J1170; J1325; J1450; J1720; J1815; J1980; J2060; J2248; J2250; J2270; J2370; J2543; J2597; J2765; J3010; J3370; J3475; J3480; J7030; J7040; J7050; J7060; J7070; J7120; P9016; P9017; P9045; P9047; Q0177; Q9963